=== PATIENT | female | born 1955 | race Caucasian/White ===

== ENCOUNTER 2023-07-04 13:54 | Outpatient (OUT) | payer MEDICARE, SELFPAY ==
--- NOTE | 2023-07-04 | MM_ITS ---
Patient: BASHIR COATS Exam Date: 07/04/2023 : 1955 Gender:F Ordering : DR Rom Becerril . Admission #: [id number] Family : Order #: [id number] CLICK HERE TO VIEW EXAM RADIOLOGY REPORT PROCEDURE: MM TOMOSYNTHESIS SCREENING BI COMPARISON: MG MAMM SCREEN 3D TRENT CAD, 02/07/2022. MG MAMM SCREEN TRENT W CAD, 07/15/2019. MG MAMM SCREEN TRENT W CAD, 03/04/2013. MG MAMM SCREEN TRENT W CAD, 07/28/2011. INDICATIONS: Z12.31 Calculator Name NCI Breast Cancer Risk Assessment Tool 5 Year Breast Cancer Risk 1.10% Lifetime Breast Cancer Risk 3.50% Personal Breast Cancer No Personal Ovarian Cancer No Treatments None Family Cancers Sister with lymphoma cancer at age 40. LOCATION: [facility] BREAST COMPOSITION: Heterogeneously dense,which may obscure small masses. FINDINGS: DIAGNOSTIC CATEGORY 2--BENIGN FINDING: RIGHT BREAST: No significant suspicious finding. Scattered benign-appearing lymph nodes are present. No significant change has occurred. LEFT BREAST: No significant suspicious finding. Scattered benign-appearing lymph nodes are present. Scattered benign-appearing calcifications are present. No significant change has occurred. RECOMMENDATIONS: ROUTINE MAMMOGRAM AND CLINICAL EVALUATION IN 12 MONTHS. PLEASE NOTE: A NORMAL MAMMOGRAM DOES NOT EXCLUDE THE POSSIBILITY OF BREAST CANCER. A CLINICALLY SUSPICIOUS PALPABLE LUMP SHOULD BE BIOPSIED. Dictated by: Mode Tijerina M.D. on 07/06/2023 at 10:48 Approved by: Mode Tijerina M.D. on 07/06/2023 at 10:51
== END 2023-07-04 13:55 | disposition home or self-care (01) ==
LOC: MAMMO 13:54
PROVIDERS: PCP Family Medicine; Visit Provider Family Medicine
DX: Z12.31 Encounter for screening mammogram for malignant neoplasm of breast (principal); Z80.7 Family history of other malignant neoplasms of lymphoid, hematopoietic and related tissues
CPT/HCPCS: 77063; 77067

== ENCOUNTER 2023-07-19 13:51 | Outpatient (OUT) | payer MEDICARE, SELFPAY | END 2023-07-19 13:52 | disposition home or self-care (01) | LOC: VC 13:51 | PROVIDERS: PCP Family Medicine; Visit Provider Radiology Diagnostic Radiology | DX: I83.813 Varicose veins of bilateral lower extremities with pain (principal) ==

== ENCOUNTER 2023-07-24 13:26 | Outpatient (OUT) | payer MEDICARE, SELFPAY ==
[2023-07-24 13:50] LABS: Basophils Percent Auto 0.5 % (0.2-2.0); Eosinophils Absolute Auto 0.1 10^3/uL (0.0-0.7); Eosinophils Percent Auto 1.7 % (0.9-7.0); Hematocrit 38.9 % (36.0-48.0); Hemoglobin 12.4 g/dL (12.0-16.0); Immature Granulocytes Abs Auto 0.01 10^3/uL (0.00-0.03); Immature Granulocytes Pct Auto 0.2 % (0.0-0.5); Lymphocytes Absolute Auto 2.3 10^3/uL (1.2-3.8); Lymphocytes Percent Auto 35.2 % (20.5-60.0); Mean Corpuscular HGB Conc 31.9 g/dL (29.9-35.2); Mean Corpuscular Hemoglobin 29.2 pg (26.7-34.0); Mean Corpuscular Volume 91.5 fL (81.0-99.0); Mean Platelet Volume 9.1 fL (9.5-13.5); Monocytes Absolute Auto 0.5 10^3/uL (0.3-0.8); Monocytes Percent Auto 8.1 % (1.7-12.0); Neutrophils Absolute Auto 3.5 10^3/uL (1.4-6.5); Neutrophils Percent Auto 54.3 % (43.0-75.0); Platelet Count 173 10^3/uL (150-450); Red Blood Count 4.25 10^6/uL (4.20-5.40); White Blood Count 6.5 10^3/uL (4.0-11.0)
[2023-07-24 13:51] LABS: Bilirubin Urine NEGATIVE (NEGATIVE); Blood Urine MODERATE (NEGATIVE); Clarity Urine CLEAR (CLEAR); Color Urine LT. YELLOW (YELLOW); Glucose Urine UA NEGATIVE (NEGATIVE); Ketones Urine NEGATIVE (NEGATIVE); Leukocyte Esterase Urine TRACE (NEGATIVE); Nitrite Urine NEGATIVE (NEGATIVE); Protein Urine NEGATIVE (NEG/TRACE); Urobilinogen Urine 0.2 EU/dL (0.2-1.0); pH Urine 5.5 (5.0-9.0)
[2023-07-24 13:59] LABS: Erythrocyte Sedimentation Rate 19 mm/hr (<=30)
[2023-07-24 14:00] LABS: WBC Urine 0-2 #/HPF (NONE SEEN)
[2023-07-24 14:01] LABS: Bacteria Urine TRACE #/HPF (NONE SEEN); Cast Seen? NONE SEEN #/LPF (NONE SEEN); Crystals Seen? None Seen #/HPF (None Seen); Mucus Urine NONE SEEN (NONE SEEN); Squamous Epithelial Cell Urine RARE #/LPF (NONE/RARE); Urine Culture Indicated NO
[2023-07-24 14:09] LABS: Alanine Aminotransferase 27 U/L (14-59); Albumin Level 3.4 g/dL (3.4-5.0); Alkaline Phosphatase 73 U/L (46-116); Anion Gap 9.6; Aspartate Amino Transferase 19 U/L (15-37); BUN Creatinine Ratio 23.4; Bilirubin Total 0.3 mg/dL (0.2-1.0); Calcium 8.6 mg/dL (8.5-10.1); Carbon Dioxide 27.5 mmol/L (21.0-32.0); Chloride 106 mmol/L (98-107); Estimated GFR (African America >60 (>=60); Estimated GFR (Non-African Ame 59 (>=60); Globulin 3.4 g/dL; Glucose 81 mg/dL (74-106); Potassium 4.1 mmol/L (3.5-5.1); Sodium 139 mmol/L (136-145); Total Protein 6.8 g/dL (6.4-8.2)
[2023-07-25 06:09] LABS: Complement C3, Serum 120 mg/dL (82-167); Complement C4, Serum 22 mg/dL (12-38)
[2023-07-25 15:08] LABS: Complement, Total (CH50) 60 U/mL (>41)
== END 2023-07-24 13:27 | disposition home or self-care (01) ==
LOC: LAB 13:28
PROVIDERS: PCP Internal Medicine
DX: M34.0 Progressive systemic sclerosis (principal); M15.0 Primary generalized (osteo)arthritis; Z79.899 Other long term (current) drug therapy
CPT/HCPCS: 36415; 80053; 81001; 85025; 85652; 86160; 86162

== ENCOUNTER 2023-09-25 14:02 | Outpatient (OUT) | payer MEDICARE, SELFPAY ==
--- NOTE | 2023-09-25 14:51 | CA_ITS ---
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 DESCRIPTION: COMPLETE ECHOCARDIOGRAM Real-time transthoracic echocardiography with 2D, M-mode, spectral and color flow Doppler performed. QUALITY: Technical quality was good. LEFT VENTRICLE: Normal chamber size. Normal left ventricular wall thickness. LV EF: Global left ventricular systolic function is normal. Visual estimation of left ventricular ejection fraction is 60-65% DIASTOLIC: Normal diastolic function. ATRIAL SEPTUM: Inadequately seen. LEFT ATRIUM: Normal chamber size. RIGHT ATRIUM: Normal chamber size. RIGHT VENTRICLE: Normal chamber size. Normal right ventricular systolic function. TRICUSPID VALVE: Normal mobility and thickness. Mild regurgitation. No evidence of pulmonary hypertension. RVSP 28mmHg MITRAL VALVE: Normal mobility and thickness. No evidence of mitral valve stenosis. There is no mitral annular calcification. Mild mitral regurgitation. AORTIC VALVE: Normal trileaflet appearance. Mildly calcified aortic valve. Normal leaflet mobility. No evidence of aortic valve stenosis. No aortic regurgitation. AORTIC ROOT: Normal diameter and appearance. PULMONIC VALVE: Normal thickness and mobility. No stenosis. Trivial regurgitation. PERICARDIUM: No evidence of pericardial effusion. CONCLUSION: 1. Global left ventricular systolic function is normal; visually estimated ejection fraction is 60 to 65% 2. Normal right ventricular size and systolic function 3. Normal diastolic function 4. Mild tricuspid regurgitation 5. Mild mitral regurgitation Adult Echocardiography Procedure Report Left Ventricle LVEDD (3.7 - 5.6 cm): 4.55 cm LVESD (2.2 - 4.0 cm): 2.96 cm LVIVS thickness (0.6 - 1.2 cm): 1.05 cm LVPW thickness (0.5 - 1.0 cm): 0.93 cm e': 0.10 m/s E - e': 8.76 LVOT Max Gradient: 3.63 mm[Hg] LVOT Area (cm2): 0.95 m/s Peak Velocity (LVOT): 0.95 m/s Mean Velocity (LVOT): 0.65 m/s LVOT Diameter 1.89 cm Left Ventricular Ejection Fraction: 72.87 % Left Atrium LA Volume Index (2D A2C): 31.23 ml/m2 Left Atrium Systolic Dimension: 3.83 cm Mitral Valve MV E to A Ratio: 0.96 Mitral Valve A-Wave Peak Velocity: 0.93 m/s Mitral Valve E-Wave Peak Velocity: 0.89 m/s Right Ventricle RV Internal Diastolic Dimension: 3.31 cm Aorta AO Root Diam: 2.70 cm Ascending Ao Diam: 3.34 cm Aortic Valve AoV Area (Peak Ernesto): 1.72 cm2, 1.72 cm2 AoV Area (VTI): 1.77 cm2, 1.77 cm2 Peak Velocity(Antegrade Flow): 1.55 m/s Peak Gradient(Antegrade Flow): 9.57 mm[Hg] Mean Velocity(Antegrade Flow): 1.05 m/s Mean Gradient(Antegrade Flow): 5.11 mm[Hg] Velocity Time Integral: 38.41 cm Tricuspid Valve Peak Velocity (Regurgitant Flow): 2.44 m/s, 2.45 m/s, 2.52 m/s, 2.78 m/s Pulmonic Valve Mean Gradient: 2.13 mm[Hg], 1.70 mm[Hg] Mean Velocity: 0.68 m/s, 0.59 m/s Peak Velocity: 0.91 m/s Peak Gradient: 3.81 mm[Hg], 2.90 mm[Hg] Right Atrium Right Atrium Systolic Pressure: 44.40 ml, 44.40 ml Dictated by: Lavelle Owens M.D. on 09/25/2023 at 17:06 Approved by: Lavelle Owens M.D. on 09/25/2023 at 17:09
== END 2023-09-25 14:03 | disposition home or self-care (01) ==
LOC: CARD 14:02
PROVIDERS: PCP Internal Medicine; Visit Provider Registered Nurse
DX: J84.10 Pulmonary fibrosis, unspecified (principal); I27.0 Primary pulmonary hypertension; R06.02 Shortness of breath; R06.00 Dyspnea, unspecified; M35.9 Systemic involvement of connective tissue, unspecified
CPT/HCPCS: 93306

== ENCOUNTER 2023-09-27 12:57 | Outpatient (OUT) | payer MEDICARE, SELFPAY ==
[2023-09-27 13:06] LABS: Hemoglobin 12.6 g/dL (12.0-16.0)
--- NOTE | 2023-09-27 14:09 | CT_ITS ---
[address] [address] Patient Name: BASHIR COATS MRN: [id number] date: 1955 Sex: F Assigned Patient Location: CARD Current Patient Location: CARD Accession/Order Number: [id number] Exam Date: 09/27/2023 14:12 Report Date: 10/02/2023 08:07 At the request of: RAFAEL TERRELL Procedure: CT chest high res EXAMINATION: CT chest high res HISTORY: Interstitial Lung Disease J84.10 COMPARISON: 09/18/2022 TECHNIQUE: Axial images were obtained at 10 mm intervals during inspiration and expiration in the supine and prone positions. No IV contrast given. Dose reduction techniques were achieved by using automated exposure control and/or adjustment of mA and/or kV according to patient size and/or use of iterative reconstruction technique. FINDINGS: LUNGS: Mild bronchiectasis. Bronchial thickening emphysema or evidence of interstitial lung disease. PLEURA: No mass, effusion, or pneumothorax. CEH: No mass or adenopathy. MEDIASTINUM: No mass or adenopathy. CHEST WALL: No mass or axillary adenopathy LIMITED ABDOMEN: No suspicious findings. Limited images of the upper abdomen. OTHER: Dilated esophagus containing food stuffs, grossly stable from the prior exam CT/CT chest high res IMPRESSION: No evidence of interstitial lung disease Electronically authenticated by: LUCA COATS Date: 10/02/2023 08:07
--- NOTE | 2023-09-27 14:38 | RT_ITS ---
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 Findings were considered accurate and reproducible. No bronchodilator was administered due to normal spirometric values. Due to software limitations, no prior studies are currently available for comparison. Spirometry: -FEV1/FVC: Normal @ 82% -FEV1: Normal @ 111% -FVC: Normal @ 102% Lung volumes by plethysmography: -RV: Normal @ 86% -TLC: Normal @ 98% Diffusion capacity: -DLCO: Normal @ 86% when corrected for Hb 12.6g/dL Flow-volume loop: -Normal shape Impressions: -Normal PFT. Clinical correlation required. Electronically Signed On 10-01-2023 17:30:42 EST by Tay Clemnets
== END 2023-09-27 12:58 | disposition home or self-care (01) ==
LOC: CARD 12:57
PROVIDERS: PCP Internal Medicine; Visit Provider Registered Nurse
DX: J84.10 Pulmonary fibrosis, unspecified (principal); I27.0 Primary pulmonary hypertension; R06.02 Shortness of breath; R06.00 Dyspnea, unspecified; M35.9 Systemic involvement of connective tissue, unspecified; Z79.899 Other long term (current) drug therapy
CPT/HCPCS: 36415; 71250; 85018; 94010; 94060; 94726; 94729

== ENCOUNTER 2023-12-25 14:26 | Outpatient (OUT) | payer OTHER, SELFPAY ==
[2023-12-25 14:52] LABS: Bilirubin Urine NEGATIVE (NEGATIVE); Blood Urine MODERATE (NEGATIVE); Clarity Urine CLEAR (CLEAR); Color Urine LT. YELLOW (YELLOW); Glucose Urine UA NEGATIVE (NEGATIVE); Ketones Urine NEGATIVE (NEGATIVE); Leukocyte Esterase Urine SMALL (NEGATIVE); Nitrite Urine NEGATIVE (NEGATIVE); Protein Urine NEGATIVE (NEG/TRACE); Urobilinogen Urine 0.2 EU/dL (0.2-1.0); pH Urine 5.5 (5.0-9.0)
[2023-12-25 14:52] LABS: Basophils Absolute Auto 0.1 10^3/uL (0.0-0.1); Basophils Percent Auto 0.8 % (0.2-2.0); Eosinophils Absolute Auto 0.1 10^3/uL (0.0-0.7); Eosinophils Percent Auto 1.4 % (0.9-7.0); Hematocrit 39.7 % (36.0-48.0); Hemoglobin 12.6 g/dL (12.0-16.0); Immature Granulocytes Abs Auto 0.02 10^3/uL (0.00-0.03); Immature Granulocytes Pct Auto 0.3 % (0.0-0.5); Lymphocytes Absolute Auto 2.6 10^3/uL (1.2-3.8); Lymphocytes Percent Auto 32.4 % (20.5-60.0); Mean Corpuscular HGB Conc 31.7 g/dL (29.9-35.2); Mean Corpuscular Hemoglobin 29.3 pg (26.7-34.0); Mean Corpuscular Volume 92.3 fL (81.0-99.0); Mean Platelet Volume 8.9 fL (9.5-13.5); Monocytes Absolute Auto 0.6 10^3/uL (0.3-0.8); Neutrophils Absolute Auto 4.6 10^3/uL (1.4-6.5); Neutrophils Percent Auto 58.1 % (43.0-75.0); Platelet Count 201 10^3/uL (150-450); Red Cell Distribution Width 13.8 % (11.0-15.0)
[2023-12-25 15:01] LABS: Bacteria Urine TRACE #/HPF (NONE SEEN); Cast Seen? NONE SEEN #/LPF (NONE SEEN); Crystals Seen? None Seen #/HPF (None Seen); Mucus Urine TRACE (NONE SEEN); Squamous Epithelial Cell Urine FEW #/LPF (NONE/RARE)
[2023-12-25 15:10] LABS: Erythrocyte Sedimentation Rate 29 mm/hr (<=30)
[2023-12-25 15:33] LABS: Alanine Aminotransferase 27 U/L (14-59); Albumin Globulin Ratio 0.9; Albumin Level 3.3 g/dL (3.4-5.0); Alkaline Phosphatase 74 U/L (46-116); Aspartate Amino Transferase 17 U/L (15-37); BUN Creatinine Ratio 19.8; Bilirubin Total 0.3 mg/dL (0.2-1.0); Carbon Dioxide 29.7 mmol/L (21.0-32.0); Chloride 104 mmol/L (98-107); Estimated GFR (African America >60 (>=60); Estimated GFR (Non-African Ame >60 (>=60); Globulin 3.5 g/dL; Glucose 94 mg/dL (74-106); Potassium 3.7 mmol/L (3.5-5.1); Sodium 143 mmol/L (136-145); Total Protein 6.8 g/dL (6.4-8.2)
[2023-12-27 05:07] LABS: Complement C3, Serum 121 mg/dL (82-167); Complement C4, Serum 20 mg/dL (12-38)
[2023-12-27 16:10] LABS: Complement, Total (CH50) 57 U/mL (>41)
== END 2023-12-25 14:27 | disposition home or self-care (01) ==
LOC: LAB 14:29
PROVIDERS: PCP Internal Medicine; Visit Provider Internal Medicine Rheumatology
DX: M34.0 Progressive systemic sclerosis (principal); M15.0 Primary generalized (osteo)arthritis; Z79.899 Other long term (current) drug therapy
CPT/HCPCS: 36415; 80053; 81001; 85025; 85652; 86160; 86162

== ENCOUNTER 2024-06-17 12:00 | Outpatient (OUT) | payer OTHER, SELFPAY ==
--- OUTSIDE RECORDS SUMMARY | 2024-06-17 12:14 | XMS_ITS | CCD ---
Author Organization [facility] Inform ion [facility] Care Team Providers Care Contracts Manager Name Role Phone EDUARDOE, PAVEL Unavailable Unavailable SKIE, PAVEL Unavailable Unavailable PAVLOCK, MAX CHAZ Unavailable Unavailable SELF, REFERRED Unavailable Unavailable LA Unavailable Unavailable SKIE, PAVEL Unavailable Unavailable ELGAFY, GARETH K Unavailable Unavailable ELGAFY, GARETH K Unavailable Unavailable PAVLOCK, MAX CHAZ Unavailable Unavailable PAVLOCK, MAX CHAZ Unavailable Unavailable Pedro Ruiz Attending Provider Steve Armendariz Primary Care Provider [phone] DO Steve Armendariz Primary Care Provider MD Alex Neely Attending Provider DO Steve Armendariz Primary Care Provider MD Alex Neely Attending Provider VASHTI Damon Attending Provider Steve Armendariz Unavailable Chiara Damon Unavailable MARCELLO, DR LEVI Admitting Unavailable BALL, DR LEVI Attending Unavailable BALL, DR LEVI Consulting Unavailable BALL, DR LEVI Primary Care Unavailable ZIEBER, DR EULALIA Robert Consulting Unavailable MISC, DR DEL RIO Admitting Unavailable MISC, DR DEL RIO Attending Unavailable MISC, DR DEL RIO Consulting Unavailable BALL, DR LEVI Primary Care Unavailable BALL, DR LEVI Admitting Unavailable BALL, DR LEVI Attending Unavailable BALL, DR LEVI Consulting Unavailable BALL, DR LEVI Primary Care Unavailable BALL, DR LEVI Admitting Unavailable BALL, DR LEVI Attending Unavailable BALL, DR LEVI Primary Care Unavailable BALL, DR LEVI Admitting Unavailable BALL, DR LEVI Attending Unavailable BALL, DR LEVI Primary Care Unavailable MISC, DR DEL RIO Consulting Unavailable MISC, DR DEL RIO Admitting Unavailable MISC, DR DEL RIO Attending Unavailable BALL, DR LEVI Primary Care Unavailable MISC, DR DEL RIO Consulting Unavailable MISC, DR DEL RIO Admitting Unavailable MISC, DR DEL RIO Attending Unavailable BALL, DR LEVI Primary Care Unavailable VICK, DR ATWOOD Admitting Unavailable MISC, DR DEL RIO Consulting Unavailable VICK, DR ATWOOD Attending Unavailable BALL, DR LEVI Primary Care Unavailable ZIEBER, DR EULALIA Robert Consulting Unavailable VICK, DR ATWOOD Consulting Unavailable MISC, DR DEL RIO Admitting Unavailable MISC, DR DEL RIO Attending Unavailable MISC, DR DEL RIO Consulting Unavailable BALL, DR LEVI Primary Care Unavailable DO Steve Armendariz Primary Care Provider [phone] VASHTI Damon Attending Provider Alex Neely Unavailable DO Steve Armendariz Primary Care Provider MD Angelic Slaughter Attending Provider [phone] BERTIN CORRAL Attending Unavailable ELLIS, BERTIN Tellez Attending Unavailable BERTIN CORRAL Attending Unavailable BERTIN CORRAL Attending Unavailable CORRAL, BERTIN Tellez Attending Unavailable CORRAL, BERTIN Tellez Attending Unavailable BERTIN CORRAL Attending Unavailable DO Steve Armendariz Primary Care Provider MD Miguel Sarah Attending Provider Angelic Slaughter Admitting UnavailAngelic Dodge Attending Unavailabl e Steve Armendariz [facility] Unavailable Miguel Sarah Admitting Unavailable Miguel Sarah Attending Unavailable Steve Armendariz [facility] Unavailable Allergies Allergy Classification Reported Allergen(s) Allergy Type Date of Onset Reaction(s) Facility Aminoglycosides (antibiotic) (1 source) Gentamicin Sulfate ([facility]) Drug Allergy 01-31-20 18 Unknown Reaction [facility] Dihydrofolate Reductase Inhibitors (antibiotic) (1 source) Trimethoprim Drug Allergy 01-31-20 18 Headache [facility] Penicillins (antibiotic) (1 source) Penicillins Drug Allergy 01-31-20 18 Swelling of Lip/Tongue/Th roat [facility] Sulfonamides (antibiotic) (1 source) Sulfamethoxazole Drug Allergy 01-31-20 18 Headache [facility] (15 sources) Gentamicin Sulfate ([facility]); Translations: [GENTAMICIN] Drug Allergy 04-21-20 15 Unknown Reaction, Unknown [facility] (9 sources) meloxicam Drug Allergy 07-31-20 18 Rash [facility] (11 sources) Penicillins Drug allergy (disorder) 06-07-20 10 Swelling of Lip/Tongue/Th roat [facility] (7 sources) Sulfonamides (Antibiotic) Drug allergy (disorder) 07-31-20 18 Unknown Reaction [facility] (13 sources) Sulfamethoxazole Drug Allergy 01-31-20 18 Headache, Comment:heada ches, Headache, Comment:heada ches [facility] (9 sources) Trimethoprim Drug Allergy 01-31-20 18 Headache [facility] (7 sources) meloxicam Drug Allergy Unknown [facility] [facility] Other (7 sources) Sulfamethoxazole / Trimethoprim Drug Allergy Unknown [employer] [facility] Other (7 sources) Sulfonamides (Antibiotic) Propensity to adverse reactions Unknown [employer] [facility] Other (7 sources) Penicillian V Potassium Propensity to adverse reactions Unknown [facility] Other (12 sources) gentamycin Propensity to adverse reactions 10-25-19 24 Unknown, Unknown Reaction [facility] (1 source) meloxicam Drug Allergy [facility] (4 sources) Penicillin Drug Allergy Comment:lips swell up [facility] Other (9 sources) Penicillin V Drug Allergy 10-25-19 24 Unknown, Unknown Reaction [facility] (4 sources) Substance with sulfonamide structure and antibacterial mechanism of action (substance) Drug allergy 12-07-19 16 Unknown [facility] Other (1 source) Allergies Reconciled Propensity to adverse reactions Unknown [facility] Other (9 sources) Gentamicin in Saline Drug allergy 10-25-19 24 Comment:made eye bloody [facility] (1 source) patient allergy list reviewed by nurse or physicia Propensity to adverse reactions 12-07-19 16 Comment:Done [facility] Other Medications Current Medications Medication Drug Class(es) Dates Sig (Normalized) Sig (Original) acetaminophen 500 mg oral tablet (10 sources) Start: 01-30-2018 Acetaminophen (Tylenol Extra Strength) 500 mg Tablet Active 500 MG PO As Directed January 30, 2018 12:00am Aloe Vera (10 sources) Start: 01-30-2018 Aloe Vera Active 1 TAB PO As Directed January 30, 2018 8:53am Start: 01-30-2018 End: 09-20-2022 Aloe Vera Discontinued 1 TAB PO As Directed January 30, 2018 12:00am September 20, 2022 1:26pm Start: 01-30-2018 End: 09-20-2022 Aloe Vera Discontinued 1 TAB PO As Directed January 29, 2018 11:00pm September 20, 2022 12:26pm Start: 01-30-2018 Aloe Vera Acti ve 1 TAB PO As Directed January 29, 2018 11:00pm Artificial Tear (7 sources) Artificial Tear Active ascorbic acid 1000 mg oral tablet (17 sources) Vitamin C Start: 01-30-2018 Ascorbic Acid (Vitamin C) (Vitamin C) 1,000 mg Tablet Active 1 TAB PO As Directed January 30, 2018 12:00am Vitamin C 500 MG as directed Orally Once a day Active Vitamin C Active Beta Glucan 250 MG (3 sources) Beta Glucan 250 MG as directed Orally Active Calcium Carbonate-Mag Hydrox id (3 sources) Start: 01-30-2018 Calcium Carbon ate-Mag Hydroxid Active 1 TAB PO As Directed January 30, 2018 12:00am Start: 01-30-2018 Calcium Carbon ate-Mag Hydroxid Active 1 TAB PO As Directed January 29, 2018 11:00pm cholecalciferol 0.025 mg oral capsule (13 sources) Vitamin D Start: 01-30-2018 Cholecalcifero l (Vitamin D3) (Vitamin D3) 1,000 unit Capsule Active 6000 UNIT PO As Directed January 30, 2018 12:00am Start: 01-30-2018 Cholecalcifero l (Vitamin D3) (Vitamin D3) 1,000 unit Capsule Active 1000 UNIT PO As Directed January 30, 2018 8:53am take 1 tablet by gladis th every twenty-four hours Vitamin D3 25 MCG (1000 UT) 1 tablet Orally Once a day Active cycloSPORINE 0.5 mg/ml ophthalmic suspension (9 sources) Calcineurin Inhibitor Immunosuppressant Start: 01-30-2018 Cyclosporine (Restasis) 0.05 % Dropperette Active 1 DROPS OPHTHALMIC As Directed January 30, 2018 8:49am Restasis Active Cyclosporine (Restasis) 0.05 % dropperette (2 sources) Start: 05-27-2024 take 1 drop(s) into the eye(s) every twelve hours Cyclosporine (Restasis) 0.05 % dropperette Active 1 DROPS EYE-BOTH Every 12 hours May 27, 2024 12:00am Digestive Enzymes (Enzyme Digest) Capsule (10 sources) Start: 01-30-2018 Digestive Enzy mes (Enzyme Digest) Capsule Active 1 CAP PO As Directed January 30, 2018 8:53am Start: 01-30-2018 take 1 capsule by mo ut once daily Digestive Enzymes (Enzyme Digest) Capsule Active 1 CAP PO Daily January 30, 2018 12:00am Start: 01-30-2018 take 1 capsule by mo uth once daily Digestive Enzymes (Enzyme Digest) Capsule Active 1 CAP PO Daily January 29, 2018 11:00pm Start: 01-30-2018 Digestive Enzy mes (Enzyme Digest) Capsule Active 1 CAP PO As Directed January 29, 2018 11:00pm Eye Promise Restore (8 sources) Start: 09-20-2022 take 1 tablet by gladis th once daily [facility] Promise Restore Active 1 TAB PO Daily September 20, 2022 1:00am Start: 09-20-2022 take 1 tablet by mouth once da sarah Eye Promise Restore Active 1 TAB PO Daily September 20, 2022 12:00am Eye Vitamins (7 sources) Eye Vitamins Act jorge Ez Tears (8 sources) Start: 09-20-2022 take 1 tablet by gladis th once daily Ez Tears Active 1 TAB PO Daily September 20, 2022 1:00am Start: 09-20-2022 take 1 tablet by mouth once da sarah Ez Tears Active 1 TAB PO Daily September 20, 2022 12:00am Garlic preparation (17 sources) Non-Standardized Food Allergenic Extract Start: 01-30-2018 Garlic Active 1 TAB PO As Directed January 30, 2018 8:53am Start: 01-30-2018 take 1 tablet by mouth once da sarah Garlic Active 1 TAB PO Daily January 30, 2018 12:00am Start: 01-30-2018 take 1 tablet by mouth once da sarah Garlic Active 1 TAB PO Daily January 29, 2018 11:00pm Start: 01-30-2018 Garlic Active 1 TAB PO As Directed January 29, 2018 11:00pm Garlic Active grape seed extract 100 mg oral capsule (7 sources) take 2.5 tablets by mouth once daily Grape Seed Extract 100 MG 2.5 tablets orally daily Active Grape Seed Extra ct Active Grape Seed Xt-Bioflav,Grannis (10 sources) Start: 01-30-2018 Grape Seed Xt- Bioflav,Grannis Active 1 TAB PO As Directed January 30, 2018 8:53am Start: 01-30-2018 take 1 tablet by gladis th once daily Grape Seed Xt-Bioflav,Grannis Active 1 TAB PO Daily January 30, 2018 12:00am Start: 01-30-2018 take 1 tablet by gladis th once daily Grape Seed Xt-Bioflav,Grannis Active 1 TAB PO Daily January 29, 2018 11:00pm Start: 01-30-2018 Grape Seed Xt- Bioflav,Grannis Active 1 TAB PO As Directed January 29, 2018 11:00pm Lactobacillus Combination No .4 (Probiotic) 3 billion cell Capsule (10 sources) Start: 01-30-2018 Lactobacillus Combination No.4 (Probiotic) 3 billion cell Capsule Active 1 TAB PO As Directed January 30, 2018 8:53am Start: 01-30-2018 Lactobacillus Combination No.4 (Probiotic) 3 billion cell Capsule Active 1 TAB PO Daily January 30, 2018 12:00am Start: 01-30-2018 Lactobacillus Combination No.4 (Probiotic) 3 billion cell Capsule Active 1 TAB PO Daily January 29, 2018 11:00pm Start: 01-30-2018 Lactobacillus Combination No.4 (Probiotic) 3 billion cell Capsule Active 1 TAB PO As Directed January 29, 2018 11:00pm melatonin 3 mg oral tablet (20 sources) Start: 09-20-2022 take 3 mg by mouth at bedtime Melatonin Active 3 MG PO Bedtime September 20, 2022 1:00am Start: 01-30-2018 End: 09-20-2022 Melatonin Discontinued 1 TAB PO As Directed January 30, 2018 12:00am September 20, 2022 1:12pm Melatonin Active Latty [place] Extract (17 sources) Start: 01-30-2018 Latty [place] Ext ract Active 1 TAB PO As Directed January 30, 2018 8:53am Start: 01-30-2018 take 1 tablet by mouth once da sarah Latty [place] Extract Active 1 TAB PO Daily January 30, 2018 12:00am Start: 01-30-2018 take 1 tablet by mouth once da sarah [place]ty [place] Extract Active 1 TAB PO Daily January 29, 2018 11:00pm Start: 01-30-2018 Latty [place] Ext ract Active 1 TAB PO As Directed January 29, 2018 11:00pm Latty [place] Extra ct Active [place] 7-Oml-Bri-Fish Oil (Fi sh Oil) 1,000 mg (120 mg-180 mg) Capsule (10 sources) Start: 01-30-2018 [place]dy 3-Dha-Ep a-Fish Oil (Fish Oil) 1,000 mg (120 mg-180 mg) Capsule Active 1 TAB PO As Directed January 30, 2018 8:53am Start: 01-30-2018 End: 09-20-2022 [place]dy 4-Vtx-Yei-Fish Oil (Fi sh Oil) 1,000 mg (120 mg-180 mg) Capsule Discontinued 1 TAB PO As Directed January 30, 2018 12:00am September 20, 2022 1:26pm Start: 01-30-2018 End: 09-20-2022 [place]uddy 6-Kaa-Ejh-Fish Oil (Fi sh Oil) 1,000 mg (120 mg-180 mg) Capsule Discontinued 1 TAB PO As Directed January 29, 2018 11:00pm September 20, 2022 12:26pm Start: 01-30-2018 [place] 3-Dha-Ep a-Fish Oil (Fish Oil) 1,000 mg (120 mg-180 mg) Capsule Active 1 TAB PO As Directed January 29, 2018 11:00pm pantoprazole 40 mg delayed release oral tablet (4 sources) Proton Pump Inhibitor Start: 03-21-2021 take 1 tablet by mouth every twenty-four hours Pantoprazole Sodium 40 MG 1 tablet Orally Once a day for 30 day(s) Mar, Active Probiotic (7 sources) Probiotic Active triamcinolone acetonide 0.001 mg/mg topical ointment (5 sources) Corticosteroid Triamcinolone Acetonide 0.1 % APPLY TO AFFECTED AREAS ON LEG AND ABDOMEN TWICE A DAY UP TO 2 WEEKS , THEN NEEDED FOR FLARES External for 30 Days Active Vitamin D3 (4 sources) Vitamin D3 Activ e Completed/Discontinued Medications Medication Drug Class(es) Dates Sig (Normalized) Sig (Original) Aloe Vera (10 sources) Start: 01-30-2018 End: 01-30-2018 Aloe Vera Discontinued 1 TAB TOPICAL January 30, 2018 8:52am January 30, 2018 8:53am Start: 01-30-2018 End: 01-30-2018 Aloe Vera Discontinued 1 TAB TOPICAL January 30, 2018 12:00am January 30, 2018 8:53am Start: 01-30-2018 End: 01-30-2018 Aloe Vera Discontinued 1 TAB TOPICAL January 29, 2018 11:00pm January 30, 2018 7:53am Calcium (7 sources) Phosphate Binder, Calcium Calciu m Not-Taking/PRN Calcium Active calcium carbonate 500 mg chewable tablet (10 sources) Start: 01-30-2018 End: 12-06-2022 take 1 tablet by mouth three times daily Calcium Carbonate (Tums) 200 mg calcium (500 mg) Tablet,Chewable Discontinued 200 MG PO Three times daily January 30, 2018 12:00am December 06, 2022 12:56pm calcium carbonate 1000 mg / magnesium hydroxide 200 mg chewable tablet (7 sources) Start: 01-30-2018 End: 05-27-2024 Calcium Carbonate-Mag Hydroxid Discontinued 1 TAB PO As Directed January 30, 2018 12:00am May 27, 2024 11:29am choline 650 mg oral tablet (10 sources) Start: 01-30-2018 End: 01-30-2018 Choline Dihydrogen Citrate Discontinued TABLET January 30, 2018 12:00am January 30, 2018 8:52am Cyclosporine (Restasis) 0.05 % Dropperette (8 sources) Start: 01-30-2018 End: 05-27-2024 take 1 drop(s) into the eye(s) once daily Cyclosporine (Restasis) 0.05 % Dropperette Discontinued 1 DROPS OPHTHALMIC Daily January 30, 2018 12:00am May 27, 2024 11:29am Start: 01-30-2018 take 1 drop(s) into the eye(s) once daily Cyclosporine (Restasis) 0.05 % Dropperette Active 1 DROPS OPHTHALMIC Daily January 30, 2018 12:00am Start: 01-30-2018 take 1 drop(s) into the eye(s) once daily Cyclosporine (Restasis) 0.05 % Dropperette Active 1 DROPS OPHTHALMIC Daily January 29, 2018 11:00pm famotidine 40 mg oral tablet (2 sources) Histamine-2 Receptor Antagonist Start: 06-12-2023 take 1 tablet by mouth every twelve hours Famotidine 40 MG 1 tablet Orally Twice a day for 30 days May, Not-Taking/PRN Magnesium (7 sources) Magnesium Not-Taking/PRN Magnesium Active omeprazole 20 mg delayed release oral capsule (20 sources) Proton Pump Inhibitor Start: 09-20-2022 End: 12-06-2022 take 40 mg by mouth twice daily Omeprazole Discontinued 40 MG PO Twice daily 60 September 20, 2022 1:00am December 06, 2022 12:57pm Start: 01-30-2018 End: 05-27-2024 take 20 mg by mouth once daily Omeprazole Discontinued 20 MG PO Daily May 27, 2024 11:34am May 27, 2024 11:38am polyethylene glycol 400 4 mg/ml / propylene glycol 3 mg/ml ophthalmic solution (8 sources) Start: 09-20-2022 End: 06-09-2024 Peg 400-Propylene Glycol (Pf) (Systane (Pf)) 0.4-0.3 % Dropperette Discontinued 1 DROPS EYE-BOTH 2-4 TIMES PER DAY September 20, 2022 1:00am June 09, 2024 2:23pm predniSONE 20 mg oral tablet (5 sources) Start: 01-29-2023 take 1 tablet by mouth every twelve hours predniSONE 20 MG 1 tablet Orally bid for 5 day(s) Jan, Not-Taking/PRN raNITIdine 150 mg oral tablet (10 sources) Histamine-2 Receptor Antagonist Start: 01-30-2018 End: 09-20-2022 Ranitidine Hcl (Zantac) 150 mg Tablet Discontinued 2 TAB PO As Directed January 30, 2018 12:00am September 20, 2022 1:26pm tiZANidine 4 mg oral capsule (8 sources) Central alpha-2 Adrenergic Agonist Start: 09-20-2022 End: 05-27-2024 take 4 mg by mouth once daily at bedtime Tizanidine Discontinued 4 MG PO Daily at bedtime September 20, 2022 1:00am May 27, 2024 11:29am traMADol hydrochloride 50 mg oral tablet (14 sources) Opioid Agonist Start: 01-30-2018 End: 09-20-2022 Tramadol Discontinued 50 MG PO As Directed January 30, 2018 12:00am September 20, 2022 1:15pm Zinc (15 sources) Start: 09-20-2022 End: 05-27-2024 take 50 mg by mouth once daily Zinc Discontinued 50 MG PO Daily September 20, 2022 1:00am May 27, 2024 11:29am Start: 09-20-2022 take 50 mg by mouth once daily Zinc Active 50 MG PO Daily September 20, 2022 1:00am Start: 09-20-2022 take 50 mg by mouth once daily Zinc Active 50 MG PO Daily September 20, 2022 12:00am Zinc Not-Taking/ PRN Zinc Active Problems Active Problems Problem Classification Problem Date Documented Date Episodic/Chronic Acute bronchitis (2 sources) Acute bronchitis; Translations: [Acute bronchitis due to other specified organisms] Onset: 6 Episodic Allergic reactions (3 sources) Allergy status to sulfonamides status; Translations: [Allergy status to penicillin] Onset: 8 Episodic Cardiac dysrhythmias (1 source) Palpitations Episodic Chronic obstructive pulmonary disease and bronchiectasis (1 source) Bronchitis, not specified as acute or chronic Episodic Digestive congenital anomalies (4 sources) Terminal esophageal web; Translations: [Esophageal web] Chronic Diverticulosis and diverticulitis (7 sources) Diverticular disease of colon; Translations: [Diverticulosis of large intestine without perforation or abscess without bleeding] Chronic Esophageal disorders (20 sources) Gastroesophageal reflux disease; Translations: [Gastro-esophageal reflux disease without esophagitis] Onset: 4 01-30-2018 Chronic Menopausal disorders (1 source) Primary ovarian failure; Translations: [Other primary ovarian failure] Chronic Mood disorders (2 sources) Depression; Translations: [Mild recurrent major depression] Onset: 4 Chronic Nausea and vomiting (7 sources) Nausea; Translations: [Nausea] Episodic Nonspecific chest pain (1 source) Other chest pain Episodic Osteoarthritis (13 sources) Primary generalized (osteo)arthritis; Translations: [Bilateral primary osteoarthritis of knee] Onset: 2 Chronic Other acquired deformities (1 source) Scoliosis, unspecified; Translations: [SCOLIOSIS, UNSPECIFIED] Onset: 8 Chronic Other acquired deformities (1 source) Acquired spondylolisthesis; Translations: [Spondylolisthesis, site unspecified] Episodic Other aftercare (1 source) 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; Translations: [OTH CASE REPAIRER CURRENT DRUG THERAPY] Onset: 3 Episodic Other and unspecified benign neoplasm (1 source) Hemangioma of other sites; Translations: [HEMANGIOMA OF OTHER SITES] Onset: 8 Episodic Other circulatory disease (1 source) Raynaud's syndrome without gangrene; Translations: [RAYNAUD'S SYNDROME WITHOUT GANGRENE] Onset: 8 Chronic Other connective tissue disease (1 source) Fibromyalgia; Translations: [Fibromyalgia] Episodic Other diseases of veins and lymphatics (4 sources) Peripheral venous insufficiency; Translations: [Venous insufficiency (chronic) (peripheral)] Episodic Other diseases of veins and lymphatics (1 source) Venous insufficiency (chronic) (peripheral) Episodic Other gastrointestinal disorders (19 sources) Dysphagia; Translations: [Dysphagia, unspecified] 01-30-2018 Episodic Other gastrointestinal disorders (5 sources) Dysphagia, unspecified; Translations: [Dysphagia, unspecified] Onset: 4 09-20-2022 Episodic Other gastrointestinal disorders (8 sources) H/O: gastrointestinal disease; Translations: [Personal history of other diseases of the digestive system] Episodic Other gastrointestinal disorders (1 source) Pharyngeal dysphagia; Translations: [Dysphagia, pharyngoesophageal phase] Episodic Other injuries and conditions due to external causes (1 source) History of fall; Translations: [History of falling] Episodic Other lower respiratory disease (4 sources) Pulmonary fibrosis, unspecified; Translations: [PULMONARY FIBROSIS UNSPECIFIED] Onset: 2 Chronic Other nervous system disorders (1 source) Hereditary disorder of nervous system; Translations: [Hereditary and idiopathic neuropathy, unspecified] Chronic Other nervous system disorders (3 sources) Neuropathy; Translations: [Idiopathic progressive neuropathy] Chronic Other non-traumatic joint disorders (1 source) Effusion, other site; Translations: [EFFUSION, OTHER SITE] Onset: 8 Episodic Other non-traumatic joint disorders (1 source) Pain in right elbow Episodic Other non-traumatic joint disorders (1 source) Pain in right shoulder Episodic Other non-traumatic joint disorders (1 source) Pain in left ankle and joints of left foot Episodic Other nutritional; endocrine; and metabolic disorders (4 sources) Other disorders of calcium metabolism; Translations: [OTHER DISORDERS OF CALCIUM METABOLISM] Onset: 8 Chronic Other nutritional; endocrine; and metabolic disorders (8 sources) Obese class I; Translations: [Body mass index (BMI) 33.0-33.9, adult] Onset: 4 Chronic Other nutritional; endocrine; and metabolic disorders (1 source) Obese class II; Translations: [Body mass index (BMI) 35.0-35.9, adult] Onset: 4 Chronic Other nutritional; endocrine; and metabolic disorders (1 source) Obesity; Translations: [Obesity, unspecified] Chronic Other nutritional; endocrine; and metabolic disorders (1 source) Morbid obesity; Translations: [Morbid (severe) obesity due to excess calories] Onset: 4 Chronic Other nutritional; endocrine; and metabolic disorders (1 source) Simple obesity ; Translations: [Other obesity due to excess calories] Onset: 4 Chronic Other screening for suspected conditions (not mental disorders or infectious disease) (9 sources) Patient encounter status; Translations: [Encounter for screening for malignant neoplasm of colon] 03-17-2021 Episodic Other upper respiratory infections (1 source) Acute pharyngitis; Translations: [Acute pharyngitis, unspecified] Episodic Peripheral and visceral atherosclerosis (10 sources) Atherosclerosis of [place] arteries of extremities with intermittent claudication, bilateral legs; Translations: [Atherosclerosis of [place] arteries of the extremities] Onset: 2 Chronic Phlebitis; thrombophlebitis and thromboembolism (2 sources) History of thromboembolism of vein; Translations: [Personal history of other venous thrombosis and embolism] Onset: 6 Episodic Pulmonary heart disease (1 source) Primary pulmonary hypertension; Translations: [PRIMARY PULMONARY HYPERTENSION] Onset: 2 Chronic Residual codes; unclassified (1 source) Postmenopausal state; Translations: [Asymptomatic menopausal state] Episodic Skin and subcutaneous tissue infections (1 source) Cellulitis of toe; Translations: [Cellulitis of unspecified toe] Episodic Spondylosis; intervertebral disc disorders; other back problems (8 sources) Spondylosis without myelopathy or radiculopathy, lumbar region; Translations: [Other intervertebral disc displacement, lumbar region] Onset: 8 Chronic Spondylosis; intervertebral disc disorders; other back problems (4 sources) Low back pain; Translations: [Low back pain] Onset: 8 Episodic Superficial injury; contusion (1 source) Contusion of right elbow, initial encounter Episodic Systemic lupus erythematosus and connective tissue disorders (12 sources) Systemic sclerosis, unspecified; 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: 8 Chronic Varicose veins of lower extremity (13 sources) Varicose ulcer of lower extremity; Translations: [Varicose veins of left lower extremity with ulcer of unspecified site] Onset: 4 Episodic Past or Other Problems Problem Classification Problem Date Documented Da te Episodic/Chronic Esophageal disorders (3 sources) Esophageal disorders; Translations: [Gastro-esophageal reflux disease with esophagitis, without bleeding] Other lower respiratory disease (1 source) Shortness of breath; Translations: [SHORTNESS OF BREATH] Onset: 09-23-2022 Episodic Other lower respiratory disease (1 source) Dyspnea, unspecified; Translations: [DYSPNEA UNSPECIFIED] Onset: 09-23-2022 Episodic Other lower respiratory disease (1 source) Cough; Translations: [Cough, unspecified] Onset: 01-05-2014 Episodic Otitis media and related conditions (1 source) Acute suppurative otitis media without spontaneous rupture of ear drum; Translations: [Acute suppurative otitis media without spontaneous rupture of eardrum] Onset: 10-12-2016 Episodic Unclassified (2 sources) Unknown / UNK(Unknown) Onset: 07-31-2018 Results Test Name Value Interpretation Reference Range Facility US venous duplex LE BIon US venous duplex [facility] [place] [address] Ultrasound Report Signed Patient: Bashir Coats MR#: [id number] : 1955 Acct:[id number] Age/Sex: 68 / F ADM Date: 01/14/24 Loc: Room: Type: [facility] CLI Attending Dr: Angelic Slaughter MD Ordering Provider: Angelic Slaughter MD Date of Service: 01/14/24 US/US venous duplex LE BI: [id number] - Varicose veins of bilateral lower extremities w... Copies to: Angelic Slaughter MD Bilateral lower extremity full functional venous duplex examination Indication for study: Painful varicose veins PROCEDURE: Color-flow duplex scanning is used to interrogate the venous anatomy of both lower extremities. There is no evidence for deep vein thrombosis. Bilaterally the common femoral vein, femoral vein, and popliteal veins show good compressibility, color-flow, and augmentation. In the patient's right leg there is severe reflux for greater than 5 seconds at the saphenofemoral junction emptying into the greater saphenous vein. There is also venous valvular incompetence in the femoral vein with reflux for 4 seconds. Right greater saphenous vein is mildly dilated at 6 mm below the saphenofemoral junction and then remains [address] down to the mid calf. Scattered 2 to 3 mm varicosities are seen to arise from the length of the greater saphenous vein. The right lesser saphenous vein is competent and is normal in size but does have some clusters of varicosities arising from it. In the patient's left leg there is greater than 5 seconds of reflux at the saphenofemoral junction which largely empties into an anterior saphenous branch and greater saphenous vein. Greater saphenous vein is again dilated at 6 mm below the saphenofemoral junction and remains 4 mm down to the mid thigh after which becomes much smaller. It gives rise to extensive varicosities that are 2 to 3 mm throughout the thigh. Some 5 mm varicosities are noted in the calf. The lesser saphenous vein is competent and is normal in size with some scattered varicosities are smaller arising from it. US/US venous duplex LE BI IMPRESSION: No evidence for deep vein thrombosis in either lower extremity. Severe venous valvular incompetence with greater than 5 seconds of reflux is noted at both saphenofemoral junctions was also mild dilation of the greater saphenous vein bilaterally and extensive varicose vein degeneration bilaterally. There is an anterior saphenous branch on the left side as well. Impression dictated by: Bucky Reynaga M.D.01/15/2024 12:26 PM Dictation Location: [id number] Tech: Lizeth Zack Transcribed By: COLTON 01/15/24 1226 Dictated By: Bucky Reynaga MD 01/15/24 1224 Signed By: 01/15/24 1226 Normal [facility] Automated epithelial cells c ount in urine sediment (number/area)on 12-25-2023 Epithelial cells Auto (Urine sed) [#/Area] FEW #/LPF NONE/RARE [facility] Automated leukocytes count i n urine sediment (number/area)on 12-25-2023 WBC Auto (Urine sed) [#/Area] 5-10 #/HPF 0-2 [facility] Automated urine specific gra vity by refractometryon 12-25-2023 Specific gravity Refractometry automated (U) [Rel density] 1.010 1.005-1.025 [facility] Basophils Auto (Bld) [#/Vol] on 12-25-2023 Basophils (Bld) [#/Vol] 0.1 10 3/uL 0.0-0.1 [facility] Basophils/100 WBC Auto (Bld) on 12-25-2023 Basophils/100 WBC (Bld) 0.8 % 0.2-2.0 [facility] Bilirubin Auto test strip (U ) [Mass/Vol]on 12-25-2023 Bilirubin (U) [Mass/Vol] Negative NEGATIVE [facility] Casts typing in urine sedime nt by light microscopyon 12-25-2023 Casts LM Nom (Urine sed) NONE SEEN #/LPF NONE SEEN [facility] Color Auto (U)on 12-25-2023 Color (U) LT. YELLOW YELLOW [facility] Eosinophils/100 WBC Auto (Bl d)on 12-25-2023 Eosinophils/100 WBC (Bld) 1.4 % 0.9-7.0 [facility] Erythrocyte distribution wid th Auto (RBC) [Ratio]on 12-25-2023 Erythrocyte distribution width (RBC) [Ratio] 13.8 % 11.0-15.0 [facility] Estimated glomerular filtrat ion rate (GFR) non- Americanon 12-25-2023 GFR/1.73 sq M.predicted among non-blacks MDRD (S/P/Bld) [Vol rate/Area] mL/min/{1.73_m2} >=60 [facility] Globulin Calc (S) [Mass/Vol] on 12-25-2023 Globulin (S) [Mass/Vol] 3.5 g/dL [facility] Hematocrit Auto (Bld) [Volum e fraction]on 12-25-2023 Hematocrit (Bld) [Volume fraction] 39.7 % 36.0-48.0 [facility] Hemoglobin [Mass/volume] in Bloodon 12-25-2023 Hemoglobin (Bld) [Mass/Vol] 12.6 g/dL 12.0-16.0 [facility] Ketones Auto test strip (U) [Mass/Vol]on 12-25-2023 Ketones (U) [Mass/Vol] Negative NEGATIVE [facility] Laboratory - Chemistry and C hemistry - challengeon 12-25-2023 Albumin [Mass/Vol] 3.3 g/dL 3.4-5.0 [facility] ALP [Catalytic activity/Vol] 74 U/L 46-116 [facility] ALT [Catalytic activity/Vol] 27 U/L 14-59 [facility] AST [Catalytic activity/Vol] 17 U/L 15-37 [facility] Bilirubin [Mass/Vol] 0.3 mg/dL 0.2-1.0 [facility] Calcium [Mass/Vol] 9.0 mg/dL 8.5-10.1 [facility] Chloride [Moles/Vol] 104 mmol/L 98-107 [facility] CO2 [Moles/Vol] 29.7 mmol/L 21.0-32.0 [facility] Creatinine [Mass/Vol] 0.91 mg/dL 0.55-1.02 [facility] GFR/1.73 sq M.predicted MDRD (S/P/Bld) [Vol rate/Area] mL/min/{1.73_m2} >=60 [facility] Glucose [Mass/Vol] 94 mg/dL 74-106 [facility] Potassium [Moles/Vol] 3.7 mmol/L 3.5-5.1 [facility] Protein [Mass/Vol] 6.8 g/dL 6.4-8.2 [facility] Sodium [Moles/Vol] 143 mmol/L 136-145 [facility] Urea nitrogen [Mass/Vol] 18.0 mg/dL 7.0-18.0 [facility] Urea nitrogen/Creatinine [Mass ratio] 19.8 mg/mg [facility] Laboratory - Hematology and Cell countson 12-25-2023 ESR (Bld) [Velocity] 29 mm/h <=30 [facility] Immature granulocytes/100 WBC (Bld) 0.3 % 0.0-0.5 [facility] Leukocytes [#/volume] correc pan for nucleated erythrocytes in Blood by Automated counon 12-25-2023 WBC corrected for nucl RBC Auto (Bld) [#/Vol] 8.0 10 3/uL 4.0-11.0 [facility] Lymphocytes Auto (Bld) [#/Vo l]on 12-25-2023 Lymphocytes (Bld) [#/Vol] 2.6 10 3/uL 1.2-3.8 [facility] Lymphocytes/100 WBC Auto (Bl d)on 12-25-2023 Lymphocytes/100 WBC (Bld) 32.4 % 20.5-60.0 [facility] MCH Auto (RBC) [Entitic mass ]on 12-25-2023 MCH (RBC) [Entitic mass] 29.3 pg 26.7-34.0 [facility] MCHC Auto (RBC) [Mass/Vol]on 12-25-2023 MCHC (RBC) [Mass/Vol] 31.7 g/dL 29.9-35.2 [facility] MCV Auto (RBC) [Entitic vol] on 12-25-2023 MCV (RBC) [Entitic vol] 92.3 fL 81.0-99.0 [facility] Monocytes Auto (Bld) [#/Vol] on 12-25-2023 Monocytes (Bld) [#/Vol] 0.6 10 3/uL 0.3-0.8 [facility] Monocytes/100 WBC Auto (Bld) on 12-25-2023 Monocytes/100 WBC (Bld) 7.0 % 1.7-12.0 [facility] Mucus LM Ql (Urine sed)on Mucus Ql (Urine sed) TRACE NONE SEEN [facility] Neutrophils Auto (Bld) [#/Vo l]on 12-25-2023 Neutrophils (Bld) [#/Vol] 4.6 10 3/uL 1.4-6.5 [facility] Neutrophils/100 WBC Auto (Bl d)on 12-25-2023 Neutrophils/100 WBC (Bld) 58.1 % 43.0-75.0 [facility] No Panel Informationon 12-24 Eosinophils # (Auto) 0.1 10 3/uL 0.0-0.7 [facility] Immature Granulocyte # (Auto) 0.02 10 3/uL 0.00-0.03 [facility] Total Complement (CH50) 57 U/mL >41 [facility] Comment on above: Age Male Female 1 - 30 days Not Estab. Not Estab. 31 days - 6 months >32 >20 7 months - 17 years >39 >39 >17 years >41 >41 NOTE: The adult ( >17 years ) reference interval range is used to flag abnormals on this report. If the patient is 17 years old or younger, use the table above to determine out of range values.Performed at: [employer] [place] [id number] Director: Savage Vaughan PhD, Phone: [phone] Platelet mean volume Auto (B ld) [Entitic vol]on 12-25-2023 Platelet mean volume (Bld) [Entitic vol] 8.9 fL 9.5-13.5 [facility] Platelets Auto (Bld) [#/Vol] on 12-25-2023 Platelets (Bld) [#/Vol] 201 10 3/uL 150-450 [facility] Protein Auto test strip (U) [Mass/Vol]on 12-25-2023 Protein (U) [Mass/Vol] Negative NEG/TRACE [facility] RBC Auto (Bld) [#/Vol]on RBC (Bld) [#/Vol] 4.30 10 6/uL 4.20-5.40 [facility] Serum or plasma albumin/glob ulin mass ratioon 12-25-2023 Albumin/Globulin [Mass ratio] 0.9 {ratio} [facility] Serum or plasma anion gap de terminationon 12-25-2023 Anion gap [Moles/Vol] 13.0 mmol/L [facility] Serum or plasma complement C 3 measurement (mass/volume)on 12-25-2023 Complement C3 [Mass/Vol] 121 mg/dL 82-167 [facility] Serum or plasma complement C 4 measurement (mass/volume)on 12-25-2023 Complement C4 [Mass/Vol] 20 mg/dL 12-38 [facility] Comment on above: Performed at: [facility] [employer] [address] [id number] Director: Savage Vaughan PhD, Phone: [phone] Specific gravity Auto test s trip (U) [Rel density]on 12-25-2023 Specific gravity (U) [Rel density] CLEAR CLEAR [facility] Urine bacteria detection by automated methodon 12-25-2023 Bacteria Auto Ql (U) TRACE #/HPF NONE SEEN [facility] Urine glucose measurement by test strip (mass/volume)on 12-25-2023 Glucose Test strip (U) [Mass/Vol] Negative NEGATIVE [facility] Urine hemoglobin detection b y automated test stripon 12-25-2023 Hemoglobin Auto test strip Ql (U) MODERATE NEGATIVE [facility] Urine nitrite detection by a utomated test stripon 12-25-2023 Nitrite Auto test strip Ql (U) SMALL NEGATIVE [facility] Nitrite Auto test strip Ql (U) Negative NEGATIVE [facility] Urine sediment crystal ident ification by light microscopyon 12-25-2023 Crystals LM Nom (Urine sed) None Seen #/HPF None Seen [facility] Urine sediment leukocyte cou nt by microscopy (number/high power field)on 12-25-2023 WBC LM.HPF (Urine sed) [#/Area] 5-10 #/HPF NONE SEEN [facility] Urobilinogen Auto test strip (U) [Mass/Vol]on 12-25-2023 Urobilinogen Qn (U) 0.2 {Lora'U}/dL 0.2-1.0 [facility] pH Auto test strip (U)on pH (U) 5.5 [pH] 5.0-9.0 [facility] XR ankle LT min 3V*on 2022 XR ankle LT min 3V* [facility] [employer] Other XR ankle LT min 3V* [facility] [employer] Other XR ankle LT min 3V* [address] [facility] [email or web address]. Other XR ankle LT min 3V* Etienne FABIAN [id number] [place] [email or web address]. Other XR ankle LT min 3V* XRay Report Nort [email or web address] Other XR ankle LT min 3V* Signed [employer] Other XR ankle LT min 3V* Patient: Bashir Coats MR#: [id number] [place] [email or web address] Other XR ankle LT min 3V* : 1955 Acct:[id number] [place] [email or web address] Other XR ankle LT min 3V* Age/Sex: 68 / F ADM Date: 06/07/23 [employer] Other XR ankle LT min 3V* Loc: XDUCLY Room: Type: REG CLI [employer] Other XR ankle LT min 3V* Attending Dr: Chiara KINGSTON [employer] Other XR ankle LT min 3V* Copies to: VASHTI Carter [employer] Other XR ankle LT min 3V* Ordering Provider: VASHTI Carter [employer] Other XR ankle LT min 3V* Date of Service: 06/07/23 [employer] Other XR ankle LT min 3V* XR/XR ankle LT min 3V*: LEFT ANKLE PAIN [employer] Other XR ankle LT min 3V* LEFT ANKLE - 3 views [employer] Other XR ankle LT min 3V* CLINICAL HISTORY: Left medial ankle pain with swelling and tingling and burning for one month. No [employer] Other XR ankle LT min 3V* known trauma. No rt [email or web address] Other XR ankle LT min 3V* COMPARISON: None [employer] Other XR ankle LT min 3V* FINDINGS: [employer] Other XR ankle LT min 3V* Soft tissue swelling is noted. Ankle mortise appears intact with mild degenerative change. No acute [employer] Other XR ankle LT min 3V* bony process. Planta r spurring. [employer] Other XR ankle LT min 3V* XR/XR ankle LT min 3V* [employer] Other XR ankle LT min 3V* IMPRESSION: Nort [email or web address] Other XR ankle LT min 3V* SOFT TISSUE SWELLING WITHOUT ACUTE BONY PROCESS. DEGENERATIVE CHANGE. [employer] Other XR ankle LT min 3V* Impression dictated by: Tanner Jarquin Jr., D.OCasey06/07/2023 1:28 PM [employer] Other XR ankle LT min 3V* Dictation Location: [place] [address] [employer] Other XR ankle LT min 3V* Transcribed By: PWS 06/07/23 1328 [employer] Other XR ankle LT min 3V* Dictated By: Tanner Jarquin Jr, DO 06/07/23 1327 [employer] Other XR ankle LT min 3V* Signed By: [employer] Other XR ankle LT min 3V* 06/07/23 1328 No rt [email or web address] Other C3 and C4 COMPLEMENTon 02-10 Complement C3, Serum 141 mg/dL Normal 82-167 [facility] Comment on above: Performed By: #### C SUITE #### [facility] [address] [place] [address] Dr. Eboni Smith Complement C4, Serum 24 mg/dL Normal 12-38 [facility] Comment on above: Performed By: #### C SUITE #### [facility] [address] [place] [address] [address] Eboni Smith COMPLEMENT TOTAL (CH50)on Complement, Total (CH50) >60 Normal >41 [facility] Comment on above: Result Comment: Age Male Female 1 - 30 days Not Estab. Not Estab. 31 days - 6 months >32 >20 7 months - 17 years >39 >39 >17 years >41 >41 NOTE: The adult ( >17 years ) reference interval range is used to flag abnormals on this report. If the patient is 17 years old or younger, use the table above to determine out of range values. Performed By: #### C H50T #### [facility] [address] [place] [address] Dr. Eboni Smith CBC AUTO DIFFon 02-08-2023 BASO # 0.0 103/ul Normal 0.0-0.1 [facility] Comment on above: Performed By: #### C BC #### [facility] [address] [place] [address] Dr. Eboni Smith Basophils/100 WBC (Bld) 0.4 % Normal 0.2-2.0 [facility] Comment on above: Performed By: #### C BC #### [facility] [address] [place] [address] Dr. Eboni Smith EO # 0.2 103/ul Normal 0.0-0.7 [facility] Comment on above: Performed By: #### C BC #### [facility] [address] [place] [address] Dr. Eboni Smith Eosinophils/100 WBC (Bld) 1.6 % Normal 0.9-7.0 [facility] Comment on above: Performed By: #### C BC #### [facility] [address] [place] [address] Dr. Eboni Smith Erythrocyte distribution width (RBC) [Ratio] 14.6 % Normal 11.0-15.0 [facility] Comment on above: Performed By: #### C BC #### [facility] [address] [place] [address] Dr. Eboni Smith Hematocrit (Bld) [Volume fraction] 40.2 % Normal 36.0-48.0 [facility] Comment on above: Performed By: #### C BC #### [facility] [address] [place] [address] Dr. Eboni Smith Hemoglobin (Bld) [Mass/Vol] 12.7 g/dL Normal 12.0-16.0 [facility] Comment on above: Performed By: #### C BC #### [facility] [address] [place] [address] Dr. Eboni Smith IG # 0.06 10e3/ul Critically high 0.00-0.03 [facility] Comment on above: Performed By: #### C BC #### [facility] [address] [place] [address] Dr. Eboni Smith IG % 0.6 % Critically high 0.0-0.5 [facility] Comment on above: Performed By: #### C BC #### [facility] [address] [place] [address] Dr. Eboni Smith LYMPH # 3.4 103/ul Normal 1.2-3.8 [facility] Comment on above: Performed By: #### C BC #### [facility] [address] [place] [address] Dr. Eboni Smith Lymphocytes/100 WBC (Bld) 36.6 % Normal 20.5-60.0 [facility] Comment on above: Performed By: #### C BC #### [facility] [address] [place] [address] Dr. Eboni Smith MANUAL DIFF REQ NO Normal [facility] Comment on above: Performed By: #### C BC #### [facility] [address] [place] [address] Dr. Eboni Smith MCH (RBC) [Entitic mass] 28.6 pg Normal 26.7-34.0 [facility] Comment on above: Performed By: #### C BC #### [facility] [address] [place] [address] Dr. Eboni Smith MCHC (RBC) [Mass/Vol] 31.6 g/dL Normal 29.9-35.2 [facility] Comment on above: Performed By: #### C BC #### [facility] [address] [place] [address] Dr. Eboni Smith MCV (RBC) [Entitic vol] 90.5 fL Normal 81.0-99.0 [facility] Comment on above: Performed By: #### C BC #### [facility] [address] [place] [address] Dr. Eboni Smith MONO # 0.8 103/ul Normal 0.3-0.8 [facility] Comment on above: Performed By: #### C BC #### [facility] [address] [place] [address] Dr. Eboni Smith Monocytes/100 WBC (Bld) 8.2 % Normal 1.7-12.0 [facility] Comment on above: Performed By: #### C BC #### [facility] [address] [place] [address] Dr. Ebnoi Smith NEUT # 4.9 103/ul Normal 1.4-6.5 [facility] Comment on above: Performed By: #### C BC #### [facility] [address] [place] [address] Dr. Eboni Smith Neutrophils/100 WBC (Bld) 52.6 % Normal 43.0-75.0 [facility] Comment on above: Performed By: #### C BC #### [facility] [address] [place] [address] Dr. Eboni Smith Platelet mean volume (Bld) [Entitic vol] 8.5 fL Critically low 9.5-13.5 [facility] Comment on above: Performed By: #### C BC #### [facility] [address] [place] [address] Dr. Eboni Smith PLT 272 103/ul Normal 150-450 [facility] Comment on above: Performed By: #### C BC #### [facility] [address] [place] [address] Dr. Eboni Smith RBC 4.44 106/ul Normal 4.20-5.40 [facility] Comment on above: Performed By: #### C BC #### [facility] [address] [place] [address] Dr. Eboni Smith WBC 9.4 103/ul Normal 4.0-11.0 [facility] Comment on above: Performed By: #### C BC #### [facility] [address] [place] [address] Dr. Eboni Smith PROF 14(COMP METB)on 023 Albumin [Mass/Vol] 3.2 g/dL Critically low 3.4-5.0 [facility] Comment on above: Performed By: #### C MP #### [facility] [address] [place] [address] Dr. Eboni Smith Albumin/Globulin [Mass ratio] 0.9 {ratio} Normal [facility] Comment on above: Performed By: #### C MP #### [facility] [address] [place] [address] Dr. Eboni Smith ALP [Catalytic activity/Vol] 85 U/L Normal 46-116 [facility] Comment on above: Performed By: #### C MP #### [facility] [address] [place] [address] Dr. Eboni Smith ALT [Catalytic activity/Vol] 22 U/L Normal 14-59 [facility] Comment on above: Performed By: #### C MP #### [facility] [address] [place] [address] Dr. Eboni Smith Anion gap [Moles/Vol] 10.8 mmol/L Normal [facility] Comment on above: Performed By: #### C MP #### [facility] [address] [place] [address] [address] Eboni Smith AST [Catalytic activity/Vol] 16 U/L Normal 15-37 [facility] Comment on above: Performed By: #### C MP #### [facility] [address] [place] [address] Dr. Eboni Smith Bilirubin [Mass/Vol] 0.2 mg/dL Normal 0.2-1.0 [facility] Comment on above: Performed By: #### C MP #### [facility] [address] [place] [address] [address] Eboni Smith Calcium [Mass/Vol] 8.9 mg/dL Normal 8.5-10.1 [facility] Comment on above: Performed By: #### C MP #### [facility] [address] [place] [address] Dr. Eboni Smith Chloride [Moles/Vol] 106 mmol/L Normal 98-107 [facility] Comment on above: Performed By: #### C MP #### [facility] [address] [place] [address] Dr. Eboni Smith CO2 [Moles/Vol] 28.2 mmol/L Normal 21.0-32.0 [facility] Comment on above: Performed By: #### C MP #### [facility] [address] [place] [address] Dr. Eboni Smith Creatinine [Mass/Vol] 0.87 mg/dL Normal 0.55-1.02 [facility] Comment on above: Performed By: #### C MP #### [facility] [address] [place] [address] Dr. Eboni Smith EGFR-AF MALIAN >60 Normal >=60 [facility] Comment on above: Performed By: #### C MP #### [facility] [address] [place] [address] Dr. Eboni Smith EGFR-NON AF MALIAN >60 Normal >=60 [facility] Comment on above: Performed By: #### C MP #### [facility] [address] [place] [address] Dr. Eboni Smith Globulin (S) [Mass/Vol] 3.5 g/dL Normal [facility] Comment on above: Performed By: #### C MP #### [facility] [address] [place] [address] [address] Eboni Smith Glucose [Mass/Vol] 93 mg/dL Normal 74-106 [facility] Comment on above: Performed By: #### C MP #### [facility] [address] [place] [address] [address] Eboni Smith Potassium [Moles/Vol] 4.0 mmol/L Normal 3.5-5.1 [facility] Comment on above: Performed By: #### C MP #### [facility] [address] [place] [address] Dr. Eboni Smith Protein [Mass/Vol] 6.7 g/dL Normal 6.4-8.2 [facility] Comment on above: Performed By: #### C MP #### [facility] [address] [place] [address] [address] Eboni Smith Sodium [Moles/Vol] 141 mmol/L Normal 136-145 [facility] Comment on above: Performed By: #### C MP #### [facility] [address] [place] [address] [address] Eboni Smith Urea nitrogen [Mass/Vol] 18.0 mg/dL Normal 7.0-18.0 [facility] Comment on above: Performed By: #### C MP #### [facility] [address] [place] [address] [address] Eboni Smith Urea nitrogen/Creatinine [Mass ratio] 20.7 mg/mg Normal [facility] Comment on above: Performed By: #### C MP #### [facility] [address] [place] [address] [address] Eboni Smith SED RATE WESTERGRENon 2022 SED RATE 22 mm/hr Normal <=30 [facility] Comment on above: Performed By: #### C SUITE #### [facility] [address] [place] [address] [address] Eboni Smith UA RANDOM W/MICROSCOPICon BACTERIA TRACE Abnormal NONE SEEN The [facility] Comment on above: Performed By: #### C BC #### [facility] [address] [place] [address] [address] Eboni Smith Bilirubin Ql (U) Negative Normal NEGATIVE [facility] Comment on above: Performed By: #### C BC #### [facility] [address] [place] [address] Dr. Eboni Smith CAST NONE SEEN Normal NONE SEEN The [facility] Comment on above: Performed By: #### C BC #### [facility] [address] [place] [address] Dr. Eboni Smith Clarity (U) SL CLOUDY Abnormal CLEAR [facility] Comment on above: Performed By: #### C BC #### [facility] [address] [place] [address] Dr. Eboni Smith Color (U) LT. YELLOW Normal YELLOW The [facility] Comment on above: Performed By: #### C BC #### [facility] [address] [place] [address] Dr. Eboni Smith Crystals LM Nom (Urine sed) NONE SEEN Normal NONE SEEN The [facility] Comment on above: Performed By: #### C BC #### [facility] [address] [place] [address] Dr. Eboni Smith Epithelial cells LM Ql (Urine sed) FEW Abnormal NONE SEEN /RARE The [facility] Comment on above: Performed By: #### C BC #### [facility] [address] [place] [address] Dr. Eboni Smith Glucose Ql (U) Negative Normal NEGATIVE The [facility] Comment on above: Performed By: #### C BC #### [facility] [address] [place] [address] Dr. Eboni Smith Hemoglobin Ql (U) TRACE-INTACT Abnormal NEGATIVE The [facility] Comment on above: Performed By: #### C BC #### [facility] [address] [place] [address] Dr. Eboni Smith Ketones Ql (U) Negative Normal NEGATIVE The [facility] Comment on above: Performed By: #### C BC #### [facility] [address] [place] [address] Dr. Eboni Smith LEUKOCYTES SMALL Abnormal NEGATIVE [facility] Comment on above: Performed By: #### C BC #### [facility] [address] [place] [address] Dr. Eboni Smith MUCOUS NONE SEEN Normal NONE SEEN [facility] Comment on above: Performed By: #### C BC #### [facility] [address] [place] [address] Dr. Eboni Smith Nitrite Ql (U) Negative Normal NEGATIVE [facility] Comment on above: Performed By: #### C BC #### [facility] [address] [place] [address] Dr. Eboni Smith pH (U) 5.5 [pH] Normal 5-9 [facility] Comment on above: Performed By: #### C BC #### [facility] [address] [place] [address] Dr. Eboni Smith RBC 0-2 Normal 0-2 [facility] Comment on above: Performed By: #### C BC #### [facility] [address] [place] [address] Dr. Eboni Smith SPEC GRAVITY 1.005 Normal 1.005-<=1.02 5 [facility] Comment on above: Performed By: #### C BC #### [facility] [address] [place] [address] Dr. Eboni Smith UA PROTEIN Negative Normal NEGATIVE/ TRACE The [facility] Comment on above: Performed By: #### C BC #### [facility] [address] [place] [address] Dr. Eboni Smith Urobilinogen Qn (U) 0.2 {Lora'U}/dL Normal 0.2 - 1. 0 [facility] Comment on above: Performed By: #### C BC #### [facility] [address] [place] [address] Dr. Eboni Smith WBC 2-5 Abnormal NONE SEEN [facility] Comment on above: Performed By: #### C BC #### [facility] [address] [place] [address] Dr. Eboni Smith XR shoulder RT min 2V*on XR shoulder RT min 2V* [facility] [email or web address] Other XR shoulder RT min 2V* [facility] [email or web address]. Other XR shoulder RT min 2V* [address] [place] [address] [email or web address]. Other XR shoulder RT min 2V* [facility] [employer] Other XR shoulder RT min 2V* XRay Report [employer] Other XR shoulder RT min 2V* Signed [employer] Other XR shoulder RT min 2V* Patient: Bashir Coats MR#: [id number] [email or web address] Other XR shoulder RT min 2V* : 1955 Acct:[id number] [employer] Other XR shoulder RT min 2V* Age/Sex: 67 / F ADM Date: 12/16/22 [employer] Other XR shoulder RT min 2V* Loc: XDUCLY Room: Type: [facility] [employer] Other XR shoulder RT min 2V* Attending Dr: Chiara KINGSTON [employer] Other XR shoulder RT min 2V* Copies to: VASHTI Carter [employer] Other XR shoulder RT min 2V* Ordering Provider: VASHTI Carter [employer] Other XR shoulder RT min 2V* Date of Service: 12/16/22 [employer] Other XR shoulder RT min 2V* XR/XR elbow RT min 3V*: Right elbow pain;Acute pain of right shoulder [employer] Other XR shoulder RT min 2V* ([id number]) XR/XR shoulder RT min 2V*: Right elbow pain;Acute pain of right shoulder [employer] Other XR shoulder RT min 2V* RIGHT ELBOW - 4 views [employer] Other XR shoulder RT min 2V* CLINICAL HISTORY: Right elbow and shoulder pain status post fall 2 days ago. [employer] Other XR shoulder RT min 2V* COMPARISON: None [employer] Other XR shoulder RT min 2V* FINDINGS: [employer] Other XR shoulder RT min 2V* Right shoulder: Mild degenerative changes of the AC and glenohumeral joints without acute bony [employer] Other XR shoulder RT min 2V* process. [employer] Other XR shoulder RT min 2V* Right elbow: Soft tissue swelling. No elbow joint effusion. No acute bony process. Mild spurring [employer] Other XR shoulder RT min 2V* along the epicondyles. [employer] Other XR shoulder RT min 2V* XR/XR elbow RT min 3V* [employer] Other XR shoulder RT min 2V* IMPRESSION: [employer] Other XR shoulder RT min 2V* NO ACUTE BONY PROCESS. [employer] Other XR shoulder RT min 2V* Impression dictated by: Tanner Jarquin Jr., D.O.12/16/2022 2:46 PM [employer] Other XR shoulder RT min 2V* Dictation Location: [place] [address] [employer] Other XR shoulder RT min 2V* Transcribed By: COLTON 12/16/22 1446 [employer] Other XR shoulder RT min 2V* Dictated By: Tanner Jarquin Jr, DO 12/16/22 1443 [employer] Other XR shoulder RT min 2V* Signed By: [employer] Other XR shoulder RT min 2V* 12/16/22 1446 [employer] Other C3 and C4 COMPLEMENTon 09-29 Complement C3, Serum 118 mg/dL Normal 82-167 [facility] Comment on above: Performed By: #### C BC #### [facility] [address] [place] [address] Dr. Eboni Smith Complement C4, Serum 25 mg/dL Normal 12-38 [facility] Comment on above: Performed By: #### C BC #### [facility] [address] [place] [address] Dr. Eboni Smith COMPLEMENT TOTAL (CH50)on Complement, Total (CH50) >60 Normal >41 [facility] Comment on above: Result Comment: Age Male Female 1 - 30 days Not Estab. Not Estab. 31 days - 6 months >32 >20 7 months - 17 years >39 >39 >17 years >41 >41 NOTE: The adult ( >17 years ) reference interval range is used to flag abnormals on this report. If the patient is 17 years old or younger, use the table above to determine out of range values. Performed By: #### C SUITE #### [facility] [address] [place] [address] Dr. Eboni Smith CBC AUTO DIFFon 09-28-2022 BASO # 0.0 103/ul Normal 0.0-0.1 [facility] Comment on above: Performed By: #### C BC #### [facility] [address] [place] [address] Dr. Eboni Smith Basophils/100 WBC (Bld) 0.6 % Normal 0.2-2.0 [facility] Comment on above: Performed By: #### C BC #### [facility] [address] [place] [address] Dr. Eboni Smith EO # 0.2 103/ul Normal 0.0-0.7 [facility] Comment on above: Performed By: #### C BC #### [facility] [address] [place] [address] Dr. Eboni Smith Eosinophils/100 WBC (Bld) 2.3 % Normal 0.9-7.0 [facility] Comment on above: Performed By: #### C BC #### [facility] [address] [place] [address] Dr. Eboni Smith Erythrocyte distribution width (RBC) [Ratio] 13.8 % Normal 11.0-15.0 [facility] Comment on above: Performed By: #### C BC #### [facility] [address] [place] [address] Dr. Eboni Smith Hematocrit (Bld) [Volume fraction] 39.7 % Normal 36.0-48.0 [facility] Comment on above: Performed By: #### C BC #### [facility] [address] [place] [address] Dr. Eboni Smith Hemoglobin (Bld) [Mass/Vol] 12.7 g/dL Normal 12.0-16.0 [facility] Comment on above: Performed By: #### C BC #### [facility] [address] [place] [address] Dr. Eboni Smith IG # 0.02 10e3/ul Normal 0.00-0.03 [facility] Comment on above: Performed By: #### C BC #### [facility] [address] [place] [address] Dr. Eboni Smith IG % 0.3 % Normal 0.0-0.5 [facility] Comment on above: Performed By: #### C BC #### [facility] [address] [place] [address] Dr. Eboni Smith LYMPH # 2.1 103/ul Normal 1.2-3.8 [facility] Comment on above: Performed By: #### C BC #### [facility] [address] [place] [address] Dr. Eboni Smith Lymphocytes/100 WBC (Bld) 31.2 % Normal 20.5-60.0 [facility] Comment on above: Performed By: #### C BC #### [facility] [address] [place] [address] Dr. Eboni Smith MANUAL DIFF REQ NO Normal [facility] Comment on above: Performed By: #### C BC #### [facility] [address] [place] [address] Dr. Eboni Smith MCH (RBC) [Entitic mass] 29.3 pg Normal 26.7-34.0 [facility] Comment on above: Performed By: #### C BC #### [facility] [address] [place] [address] Dr. Eboni Smith MCHC (RBC) [Mass/Vol] 32.0 g/dL Normal 29.9-35.2 [facility] Comment on above: Performed By: #### C BC #### [facility] [address] [place] [address] Dr. Eboni Smith MCV (RBC) [Entitic vol] 91.5 fL Normal 81.0-99.0 [facility] Comment on above: Performed By: #### C BC #### [facility] [address] [place] [address] Dr. Eboni Smith MONO # 0.5 103/ul Normal 0.3-0.8 [facility] Comment on above: Performed By: #### C BC #### [facility] [address] [place] [address] Dr. Eboni Smith Monocytes/100 WBC (Bld) 7.3 % Normal 1.7-12.0 [facility] Comment on above: Performed By: #### C BC #### [facility] [address] [place] [address] Dr. Eboni Smith NEUT # 4.0 103/ul Normal 1.4-6.5 [facility] Comment on above: Performed By: #### C BC #### [facility] [address] [place] [address] Dr. Eboni Smith Neutrophils/100 WBC (Bld) 58.3 % Normal 43.0-75.0 [facility] Comment on above: Performed By: #### C BC #### [facility] [address] [place] [address] [address] Eboni Smith Platelet mean volume (Bld) [Entitic vol] 8.5 fL Critically low 9.5-13.5 [facility] Comment on above: Performed By: #### C BC #### [facility] [address] [place] [address] Dr. Eboni Smith PLT 200 103/ul Normal 150-450 [facility] Comment on above: Performed By: #### C BC #### [facility] [address] [place] [address] [address] Eboni Smith RBC 4.34 106/ul Normal 4.20-5.40 [facility] Comment on above: Performed By: #### C BC #### [facility] [address] [place] [address] Dr. Eboni Smith WBC 6.9 103/ul Normal 4.0-11.0 [facility] Comment on above: Performed By: #### C BC #### [facility] [address] [place] [address] Dr. Eboni Smith PROF 14(COMP METB)on 022 Albumin [Mass/Vol] 3.4 g/dL Normal 3.4-5.0 [facility] Comment on above: Performed By: #### C BC #### [facility] [address] [place] [address] Dr. Eboni Smith Albumin/Globulin [Mass ratio] 1.0 {ratio} Normal [facility] Comment on above: Performed By: #### C BC #### [facility] [address] [place] [address] Dr. Eboni Smith ALP [Catalytic activity/Vol] 75 U/L Normal 46-116 [facility] Comment on above: Performed By: #### C BC #### [facility] [address] [place] [address] Dr. Eboni Smith ALT [Catalytic activity/Vol] 16 U/L Normal 14-59 [facility] Comment on above: Performed By: #### C BC #### [facility] [address] [place] [address] [address] Eboni Smith Anion gap [Moles/Vol] 10.2 mmol/L Normal [facility] Comment on above: Performed By: #### C BC #### [facility] [address] [place] [address] [address] Eboni Smith AST [Catalytic activity/Vol] 18 U/L Normal 15-37 [facility] Comment on above: Performed By: #### C BC #### [facility] [address] [place] [address] [address] Eobni Smith Bilirubin [Mass/Vol] 0.3 mg/dL Normal 0.2-1.0 [facility] Comment on above: Performed By: #### C BC #### [facility] [address] [place] [address] [address] Eboni Smith Calcium [Mass/Vol] 9.3 mg/dL Normal 8.5-10.1 [facility] Comment on above: Performed By: #### C BC #### [facility] [address] [place] [address] [address] Eboni Smith Chloride [Moles/Vol] 105 mmol/L Normal 98-107 [facility] Comment on above: Performed By: #### C BC #### [facility] [address] [place] [address] [address] Eboni Smith CO2 [Moles/Vol] 29.1 mmol/L Normal 21.0-32.0 [facility] Comment on above: Performed By: #### C BC #### [facility] [address] [place] [address] [address] Eboni Smith Creatinine [Mass/Vol] 0.87 mg/dL Normal 0.55-1.02 [facility] Comment on above: Performed By: #### C BC #### [facility] [address] [place] [address] [address] Eboni Smith EGFR-AF MALIAN >60 Normal >=60 [facility] Comment on above: Performed By: #### C BC #### [facility] [address] [place] [address] Dr. Eboni Smith EGFR-NON AF MALIAN >60 Normal >=60 [facility] Comment on above: Performed By: #### C BC #### [facility] [address] [place] [address] Dr. Eboni Smith Globulin (S) [Mass/Vol] 3.4 g/dL Normal [facility] Comment on above: Performed By: #### C BC #### [facility] [address] [place] [address] [address] Eboni Smith Glucose [Mass/Vol] 82 mg/dL Normal 74-106 [facility] Comment on above: Performed By: #### C BC #### [facility] [address] [place] [address] Dr. Eboni Smith Potassium [Moles/Vol] 4.3 mmol/L Normal 3.5-5.1 [facility] Comment on above: Performed By: #### C BC #### [facility] [address] [place] [address] Dr. Eboni Smith Protein [Mass/Vol] 6.8 g/dL Normal 6.4-8.2 [facility] Comment on above: Performed By: #### C BC #### [facility] [address] [place] [address] Dr. Eboni Smith Sodium [Moles/Vol] 140 mmol/L Normal 136-145 [facility] Comment on above: Performed By: #### C BC #### [facility] [address] [place] [address] Dr. Eboni Smith Urea nitrogen [Mass/Vol] 16.0 mg/dL Normal 7.0-18.0 [facility] Comment on above: Performed By: #### C BC #### [facility] [address] [place] [address] Dr. Eboni Smith Urea nitrogen/Creatinine [Mass ratio] 18.4 mg/mg Normal [facility] Comment on above: Performed By: #### C BC #### [facility] [address] [place] [address] Dr. Eboni Smith SED RATE [facility] 2021 SED RATE 17 mm/hr Normal <=30 [facility] Comment on above: Performed By: #### C BC #### [facility] [address] [place] [address] Dr. Eboni Smith UA RANDOM W/MICROSCOPICon BACTERIA TRACE Abnormal NONE SEEN The [facility] Comment on above: Performed By: #### C BC #### [facility] [address] [place] [address] Dr. Eboni Smith Bilirubin Ql (U) Negative Normal NEGATIVE [facility] Comment on above: Performed By: #### C BC #### [facility] [address] [place] [address] Dr. Eboni Smith CAST NONE SEEN Normal NONE SEEN [facility] Comment on above: Performed By: #### C BC #### [facility] [address] [place] [address] Dr. Eboni Smith Clarity (U) CLEAR Normal CLEAR [facility] Comment on above: Performed By: #### C BC #### [facility] [address] [place] [address] Dr. Eboni Smith Color (U) LT. YELLOW Normal YELLOW [facility] Comment on above: Performed By: #### C BC #### [facility] [address] [place] [address] Dr. Eboni Smith Crystals LM Nom (Urine sed) NONE SEEN Normal NONE SEEN [facility] Comment on above: Performed By: #### C BC #### [facility] [address] [place] [address] Dr. Eboni Smith Epithelial cells LM Ql (Urine sed) FEW Abnormal NONE SEEN /RARE [facility] Comment on above: Performed By: #### C BC #### [facility] [address] [place] [address] Dr. Eboni Smith Glucose Ql (U) Negative Normal NEGATIVE [facility] Comment on above: Performed By: #### C BC #### [facility] [address] [place] [address] Dr. Eboni Smith Hemoglobin Ql (U) MODERATE Abnormal NEGATIVE [facility] Comment on above: Performed By: #### C BC #### [facility] [address] [place] [address] Dr. Eboni Smith Ketones Ql (U) Negative Normal NEGATIVE [facility] Comment on above: Performed By: #### C BC #### [facility] [address] [place] [address] Dr. Eboni Smith LEUKOCYTES TRACE Abnormal NEGATIVE [facility] Comment on above: Performed By: #### C BC #### [facility] [address] [place] [address] Dr. Eboni Smith MUCOUS NONE SEEN Normal NONE SEEN [facility] Comment on above: Performed By: #### C BC #### [facility] [address] [place] [address] Dr. Eboni Smith Nitrite Ql (U) Negative Normal NEGATIVE [facility] Comment on above: Performed By: #### C BC #### [facility] [address] [place] [address] Dr. Eboni Smith pH (U) 5.0 [pH] Normal 5-9 [facility] Comment on above: Performed By: #### C BC #### [facility] [address] [place] [address] Dr. Eboni Smith RBC 5-10 Abnormal 0-2 [facility] Comment on above: Performed By: #### C BC #### [facility] [address] [place] [address] Dr. Eboni Smith SPEC GRAVITY 1.010 Normal 1.005-<=1.02 5 [facility] Comment on above: Performed By: #### C BC #### [facility] [address] [place] [address] Dr. Eboni Smith UA PROTEIN Negative Normal NEGATIVE/ TRACE [facility] Comment on above: Performed By: #### C BC #### [facility] [address] [place] [address] Dr. Eboni Smith Urobilinogen Qn (U) 0.2 {Lora'U}/dL Normal 0.2 - 1. 0 [facility] Comment on above: Performed By: #### C BC #### [facility] [address] [place], [place] [address] Dr. Eboni Smith WBC 5-10 Abnormal NONE SEEN [facility] Comment on above: Performed By: #### C BC #### [facility] [address] [place], [place] [address] Dr. Eboni Smith COVID-19 SOFIAOrdered By: Whitney Neely on 09-18-2022 SARS-CoV+SARS-CoV-2 (COVID-19) Ag IA.rapid Ql (Resp) Negative Negative [facility] Comment on above: This is a duplicate Lona SARS Antigen (KARY) result to be used for statistical tracking purpose only. CT CHEST HI RESOLUTIONon CT CHEST HI RESOLUTION EXAMINATION: CT CHEST HI RESOLUTION HISTORY: Fibrosis of lung COMPARISON: No relevant comparison [id number]/2020ilable. TECHNIQUE: Axial images were obtained at 10 mm intervals during inspiration and expiration in the supine and prone positions. No IV contrast given. Dose reduction techniques were achieved by using automated exposure control and/or adjustment of mA and/or kV according to patient size and/or use of iterative reconstruction technique. FINDINGS: LUNGS: No visible pulmonary disease. PLEURA: No mass, effusion, or pneumothorax. CHE: No mass or adenopathy. MEDIASTINUM: No mass or adenopathy. CHEST WALL: No mass or axillary adenopathy LIMITED ABDOMEN: Fluid and debris within mid and distal esophagus. Limited images of the upper abdomen. OTHER: Negative. IMPRESSION: 1. No significant chronic interstitial changes. No acute infiltrates. 2. Fluid and debris within mildly distended esophagus; gastroesophageal reflux versus lack of esophageal peristalsis. Electronically authenticated by: EULALIA MORALES Date: 2022-09-18 15:20 Normal [facility] ECHOCARDIO M/2D COMPLETEon 1 11-19-2021 ECHOCARDIO M/2D COMPLETE Patient: BASHIR COATS Exam Date: 09/18/2022 : 1955 Gender:F Ordering : DR ANGELIC VICK M.D. Admission #: [id number] Family : DR STEVE ARMENDARIZ D.O. Order #: [id number] CLICK HERE TO VIEW EXAM ECHOCARDIOGRAM REPORT PROCEDURE: CARDIO PULMONARY ECHOCARDIO M/2D COMP INDICATIONS: Interstitial lung disease COMPARISON: None. DESCRIPTION: COMPLETE ECHOCARDIOGRAM Real-time transthoracic echocardiography with 2D, M-mode, spectral and color flow Doppler performed. QUALITY: Technical quality was good. LEFT VENTRICLE: Normal chamber size. Mild concentric left ventricular hypertrophy. LV EF: Normal left ventricular ejection fraction, (>55%). DIASTOLIC: Normal diastolic function. ATRIAL SEPTUM: Visually appears intact. LEFT ATRIUM: Normal chamber size. RIGHT ATRIUM: Normal chamber size. RIGHT VENTRICLE: Normal chamber size. Normal systolic function. TRICUSPID VALVE: Normal mobility and thickness. No stenosis with mild regurgitation. No evidence of pulmonary hypertension. RVSP 27 mmHg MITRAL VALVE: Normal mobility and thickness. No evidence of mitral valve stenosis. Mild mitral annular calcification. Mild mitral regurgitation. AORTIC VALVE: Normal trileaflet appearance. No visible sclerosis. Normal leaflet mobility. No evidence of aortic valve stenosis. No aortic regurgitation. AORTIC ROOT: Normal diameter and appearance. PULMONIC VALVE: Not well visualized. No stenosis. No regurgitation. PERICARDIUM: Anterior free space; trivial effusion versus fat pad. IVC: Collapses with inspirations. CONCLUSION: Global left ventricular systolic function is normal; visually estimated ejection fraction is 60 to 65%. No significant wall motion abnormalities. Mild left ventricular hypertrophy. The right ventricle is normal in size and systolic function. Mild tricuspid regurgitation. Mild mitral regurgitation. Anterior free space; trivial effusion versus fat pad. Adult Echocardiography Procedure Report Left Ventricle Left Atrium Mitral Valve Right Ventricle Aorta Aortic Valve Tricuspid Valve Pulmonic Valve Right Atrium Dictated by: Lavelle Owens M.D. on 09/20/2022 at 13:57 Approved by: Lavelle Owens M.D. on 09/20/2022 at 13:59 Normal [facility] HEMOGLOBINon 09-18-2022 Hemoglobin (Bld) [Mass/Vol] 12.4 g/dL Normal 12.0-16.0 [facility] Comment on above: Performed By: #### C SUITE #### [facility] [address] [place] [address] Dr. Eboni Smith No Panel InformationOrdered By: Alex Neely on 09-18-2022 SARS Antigen (LFIA) [facility] SARS Antigen (LFIA) [facility] COMPLEMENT TOTAL (CH50)on 08 -29-2022 Complement, Total (CH50) 59 U/mL Normal >41 [facility] Comment on above: Result Comment: Age Male Female 1 - 30 days Not Estab. Not Estab. 31 days - 6 months >32 >20 7 months - 17 years >39 >39 >17 years >41 >41 NOTE: The adult ( >17 years ) reference interval range is used to flag abnormals on this report. If the patient is 17 years old or younger, use the table above to determine out of range values. Performed By: #### C H50T #### [facility] [address] [place] [address] Dr. Eboni Smith C3 and C4 COMPLEMENTon 06-10 Complement C3, Serum 118 mg/dL Normal 82-167 [facility] Comment on above: Performed By: #### C SUITE #### [facility] [address] [place] [address] Dr. Eboni Smith Complement C4, Serum 22 mg/dL Normal 12-38 [facility] Comment on above: Performed By: #### C SUITE #### [facility] [address] [place] [address] Dr. Eboni Smith CBC AUTO DIFFon 06-09-2022 BASO # 0.0 103/ul Normal 0.0-0.1 [facility] Comment on above: Performed By: #### C BC #### [facility] [address] [place] [address] Dr. Eboni Smith Basophils/100 WBC (Bld) 0.4 % Normal 0.2-2.0 [facility] Comment on above: Performed By: #### C BC #### [facility] [address] [place] [address] Dr. Eboni Smith EO # 0.2 103/ul Normal 0.0-0.7 [facility] Comment on above: Performed By: #### C BC #### [facility] [address] [place] [address] Dr. Eboni Smith Eosinophils/100 WBC (Bld) 2.3 % Normal 0.9-7.0 [facility] Comment on above: Performed By: #### C BC #### [facility] [address] [place] [address] Dr. Eboni Smith Erythrocyte distribution width (RBC) [Ratio] 13.6 % Normal 11.0-15.0 [facility] Comment on above: Performed By: #### C BC #### [facility] [address] [place] [address] Dr. Eboni Smith Hematocrit (Bld) [Volume fraction] 40.7 % Normal 36.0-48.0 [facility] Comment on above: Performed By: #### C BC #### [facility] [address] [place] [address] Dr. Eboni Smith Hemoglobin (Bld) [Mass/Vol] 12.9 g/dL Normal 12.0-16.0 [facility] Comment on above: Performed By: #### C BC #### [facility] [address] [place] [address] Dr. Eboni Smith IG # 0.02 10e3/ul Normal 0.00-0.03 [facility] Comment on above: Performed By: #### C BC #### [facility] [address] [place] [address] Dr. Eboni Smith IG % 0.3 % Normal 0.0-0.5 [facility] Comment on above: Performed By: #### C BC #### [facility] [address] [place] [address] Dr. Eboin Smith LYMPH # 2.3 103/ul Normal 1.2-3.8 [facility] Comment on above: Performed By: #### C BC #### [facility] [address] [place] [address] Dr. Eboni Smith Lymphocytes/100 WBC (Bld) 33.6 % Normal 20.5-60.0 [facility] Comment on above: Performed By: #### C BC #### [facility] [address] [place] [address] Dr. Eboni Smith MANUAL DIFF REQ NO Normal [facility] Comment on above: Performed By: #### C BC #### [facility] [address] [place] [address] Dr. Eboni Smith MCH (RBC) [Entitic mass] 29.5 pg Normal 26.7-34.0 [facility] Comment on above: Performed By: #### C BC #### [facility] [address] [place] [address] Dr. Eboni Smith MCHC (RBC) [Mass/Vol] 31.7 g/dL Normal 29.9-35.2 [facility] Comment on above: Performed By: #### C BC #### [facility] [address] [place] [address] Dr. Eboni Smith MCV (RBC) [Entitic vol] 92.9 fL Normal 81.0-99.0 [facility] Comment on above: Performed By: #### C BC #### [facility] [address] [place] [address] Dr. Eboni Smith MONO # 0.6 103/ul Normal 0.3-0.8 [facility] Comment on above: Performed By: #### C BC #### [facility] [address] [place] [address] Dr. Eboni Smith Monocytes/100 WBC (Bld) 8.1 % Normal 1.7-12.0 [facility] Comment on above: Performed By: #### C BC #### [facility] [address] [place] [address] Dr. Eboni Smith NEUT # 3.8 103/ul Normal 1.4-6.5 [facility] Comment on above: Performed By: #### C BC #### [facility] [address] [place] [address] Dr. Eboni Smith Neutrophils/100 WBC (Bld) 55.3 % Normal 43.0-75.0 [facility] Comment on above: Performed By: #### C BC #### [facility] [address] [place] [address] Dr. Eboni Smith Platelet mean volume (Bld) [Entitic vol] 8.8 fL Critically low 9.5-13.5 [facility] Comment on above: Performed By: #### C BC #### [facility] [address] [place] [address] Dr. Eboni Smith PLT 209 103/ul Normal 150-450 [facility] Comment on above: Performed By: #### C BC #### [facility] [address] [place] [address] Dr. Eboni Smith RBC 4.38 106/ul Normal 4.20-5.40 [facility] Comment on above: Performed By: #### C BC #### [facility] [address] [address] [address] Eboni Smith WBC 6.9 103/ul Normal 4.0-11.0 [facility] Comment on above: Performed By: #### C BC #### [facility] [address] [place] [address] Dr. Eboni Smith PROF 14(COMP METB)on 022 Albumin [Mass/Vol] 3.6 g/dL Normal 3.4-5.0 [facility] Comment on above: Performed By: #### C SUITE #### [facility] [address] [place] [address] Dr. Eboni Smith Albumin/Globulin [Mass ratio] 1.1 {ratio} Normal [facility] Comment on above: Performed By: #### C SUITE #### [facility] [address] [place] [address] Dr. Eboni Smith ALP [Catalytic activity/Vol] 78 U/L Normal 46-116 [facility] Comment on above: Performed By: #### C SUITE #### [facility] [address] [place] [address] Dr. Eboni Smith ALT [Catalytic activity/Vol] 19 U/L Normal 14-59 [facility] Comment on above: Performed By: #### C SUITE #### [facility] [address] [place] [address] Dr. Eboni Smith Anion gap [Moles/Vol] 10.4 mmol/L Normal [facility] Comment on above: Performed By: #### C SUITE #### [facility] [address] [place] [address] Dr. Eboni Smith AST [Catalytic activity/Vol] 18 U/L Normal 15-37 [facility] Comment on above: Performed By: #### C SUITE #### [facility] [address] [address] [address] Eboni Smith Bilirubin [Mass/Vol] 0.3 mg/dL Normal 0.2-1.0 [facility] Comment on above: Performed By: #### C SUITE #### [facility] [address] [address] [address] Eboni Smith Calcium [Mass/Vol] 8.9 mg/dL Normal 8.5-10.1 [facility] Comment on above: Performed By: #### C SUITE #### [facility] [address] [address] [address] Eboni Smith Chloride [Moles/Vol] 105 mmol/L Normal 98-107 [facility] Comment on above: Performed By: #### C SUITE #### [facility] [address] [place] [address] Dr. Eboni Smith CO2 [Moles/Vol] 28.8 mmol/L Normal 21.0-32.0 [facility] Comment on above: Performed By: #### C SUITE #### [facility] [address] [place] [address] Dr. Eboni Smith Creatinine [Mass/Vol] 0.88 mg/dL Normal 0.55-1.02 [facility] Comment on above: Performed By: #### C SUITE #### [facility] [address] [place] [address] Dr. Eboni Smith EGFR-AF MALIAN >60 Normal >=60 [facility] Comment on above: Performed By: #### C SUITE #### [facility] [address] [place] [address] Dr. Eboni Smith EGFR-NON AF MALIAN >60 Normal >=60 [facility] Comment on above: Performed By: #### C SUITE #### [facility] [address] [place] [address] Dr. Eboni Smith Globulin (S) [Mass/Vol] 3.3 g/dL Normal [facility] Comment on above: Performed By: #### C SUITE #### [facility] [address] [address] [address] Eboni Smith Glucose [Mass/Vol] 98 mg/dL Normal 74-106 [facility] Comment on above: Performed By: #### C SUITE #### [facility] [address] [address] [address] Eboni Smith Potassium [Moles/Vol] 4.2 mmol/L Normal 3.5-5.1 [facility] Comment on above: Performed By: #### C SUITE #### [facility] [address] [address] [address] Eboni Smith Protein [Mass/Vol] 6.9 g/dL Normal 6.4-8.2 [facility] Comment on above: Performed By: #### C SUITE #### [facility] [address] [place] [address] Dr. Eboni Smith Sodium [Moles/Vol] 140 mmol/L Normal 136-145 [facility] Comment on above: Performed By: #### C SUITE #### [facility] [address] [place] [address] Dr. Eboni Smith Urea nitrogen [Mass/Vol] 22.0 mg/dL Critically high 7.0-18.0 [facility] Comment on above: Performed By: #### C SUITE #### [facility] [address] [place] [address] Dr. Eboni Smith Urea nitrogen/Creatinine [Mass ratio] 25.0 mg/mg Normal [facility] Comment on above: Performed By: #### C SUITE #### [facility] [address] [place] [address] Dr. Eboni Smith SED RATE WESTERGRENon 2021 SED RATE 21 mm/hr Normal <=30 [facility] Comment on above: Performed By: #### C SUITE #### [facility] [address] [place] [address] Dr. Eboni Smith UA RANDOM W/MICROSCOPICon BACTERIA NONE SEEN Normal NONE SEEN [facility] Comment on above: Performed By: #### U AMIC #### [facility] [address] [address] [address] Eboni Smith Bilirubin Ql (U) Negative Normal NEGATIVE [facility] Comment on above: Performed By: #### U AMIC #### [facility] [address] [address] [address] Eboni Smith CAST NONE SEEN Normal NONE SEEN [facility] Comment on above: Performed By: #### U AMIC #### [facility] [address] [address] [address] Eboni Smith Clarity (U) CLEAR Normal CLEAR [facility] Comment on above: Performed By: #### U AMIC #### [facility] [address] [address] [address] Eboni Smith Color (U) LT. YELLOW Normal YELLOW [facility] Comment on above: Performed By: #### U AMIC #### [facility] [address] [place] [address] Dr. Eboni Simth Crystals LM Nom (Urine sed) NONE SEEN Normal NONE SEEN [facility] Comment on above: Performed By: #### U AMIC #### [facility] [address] [place] [address] Dr. Eboni Smith Epithelial cells LM Ql (Urine sed) FEW Abnormal NONE SEEN /RARE [facility] Comment on above: Performed By: #### U AMIC #### [facility] [address] [place] [address] Dr. Eboni Smith Glucose Ql (U) Negative Normal NEGATIVE [facility] Comment on above: Performed By: #### U AMIC #### [facility] [address] [place] [address] Dr. Eboni Smith Hemoglobin Ql (U) SMALL Abnormal NEGATIVE [facility] Comment on above: Performed By: #### U AMIC #### [facility] [address] [address] [address] Eboni Smith Ketones Ql (U) Negative Normal NEGATIVE [facility] Comment on above: Performed By: #### U AMIC #### [facility] [address] [place] [address] Dr. Eboni Smith LEUKOCYTES TRACE Abnormal NEGATIVE [facility] Comment on above: Performed By: #### U AMIC #### [facility] [address] [address] [address] Eboni Smith MUCOUS NONE SEEN Normal NONE SEEN [facility] Comment on above: Performed By: #### U AMIC #### [facility] [address] [address] [address] Eboni Smith Nitrite Ql (U) Negative Normal NEGATIVE [facility] Comment on above: Performed By: #### U AMIC #### [facility] [address] [place] [address] Dr. Eboni Smith pH (U) 6.0 [pH] Normal 5-9 [facility] Comment on above: Performed By: #### U AMIC #### [facility] [address] [place] [address] Dr. Eboni Smith RBC 2-5 Abnormal 0-2 [facility] Comment on above: Performed By: #### U AMIC #### [facility] [address] [place] [address] Dr. Eboni Smith SPEC GRAVITY 1.010 Normal 1.005-<=1.02 5 [facility] Comment on above: Performed By: #### U AMIC #### [facility] [address] [place] [address] Dr. Eboni Smith UA PROTEIN Negative Normal NEGATIVE/ TRACE [facility] Comment on above: Performed By: #### U AMIC #### [facility] [address] [address] [address] Eboni Smith Urobilinogen Qn (U) 0.2 {Lora'U}/dL Normal 0.2 - 1. 0 [facility] Comment on above: Performed By: #### U AMIC #### [facility] [address] [place] [address] Dr. Eboni Smith WBC 2-5 Abnormal NONE SEEN [facility] Comment on above: Performed By: #### U AMIC #### [facility] [address] [place] [address] Dr. Eboni Smith C3 and C4 COMPLEMENTon 03-01 Complement C3, Serum 110 mg/dL Normal 82-167 [facility] Comment on above: Performed By: #### C SUITE #### [facility] [address] [place] [address] Dr. Eboni Smith Complement C4, Serum 22 mg/dL Normal 12-38 [facility] Comment on above: Performed By: #### C SUITE #### [facility] [address] [place] [address] Dr. Eboni Smith COMPLEMENT TOTAL (CH50)on Complement, Total (CH50) >60 Normal >41 [facility] Comment on above: Result Comment: Age Male Female 1 - 30 days Not Estab. Not Estab. 31 days - 6 months >32 >20 7 months - 17 years >39 >39 >17 years >41 >41 NOTE: The adult ( >17 years ) reference interval range is used to flag abnormals on this report. If the patient is 17 years old or younger, use the table above to determine out of range values. Performed By: #### C BC #### [facility] [address] [place] [address] Dr. Eboni Smith CBC AUTO DIFFon 02-28-2022 BASO # 0.0 103/ul Normal 0.0-0.1 [facility] Comment on above: Performed By: #### C SUITE #### [facility] [address] [place] [address] Dr. Eboni Smith Basophils/100 WBC (Bld) 0.2 % Normal 0.2-2.0 [facility] Comment on above: Performed By: #### C SUITE #### [facility] [address] [place] [address] Dr. Eboni Smith EO # 0.1 103/ul Normal 0.0-0.7 [facility] Comment on above: Performed By: #### C SUITE #### [facility] [address] [place] [address] Dr. Eboni Smith Eosinophils/100 WBC (Bld) 1.5 % Normal 0.9-7.0 [facility] Comment on above: Performed By: #### C SUITE #### [facility] [address] [place] [address] Dr. Eboni Smith Erythrocyte distribution width (RBC) [Ratio] 14.6 % Normal 11.0-15.0 [facility] Comment on above: Performed By: #### C SUITE #### [facility] [address] [place] [address] Dr. Eboni Smith Hematocrit (Bld) [Volume fraction] 38.9 % Normal 36.0-48.0 [facility] Comment on above: Performed By: #### C SUITE #### [facility] [address] [place] [address] Dr. Eboni Smith Hemoglobin (Bld) [Mass/Vol] 12.4 g/dL Normal 12.0-16.0 [facility] Comment on above: Performed By: #### C SUITE #### [facility] [address] [place] [address] Dr. Eboni Smith IG # 0.02 10e3/ul Normal 0.00-0.03 [facility] Comment on above: Performed By: #### C SUITE #### [facility] [address] [place] [address] Dr. Eboni Smith IG % 0.2 % Normal 0.0-0.5 [facility] Comment on above: Performed By: #### C SUITE #### [facility] [address] [place] [address] Dr. Eboni Smith LYMPH # 2.3 103/ul Normal 1.2-3.8 [facility] Comment on above: Performed By: #### C SUITE #### [facility] [address] [place] [address] Dr. Eboni Smith Lymphocytes/100 WBC (Bld) 27.7 % Normal 20.5-60.0 [facility] Comment on above: Performed By: #### C SUITE #### [facility] [address] [place] [address] Dr. Eboni Smith MANUAL DIFF REQ NO Normal [facility] Comment on above: Performed By: #### C SUITE #### [facility] [address] [place] [address] Dr. Eboni Smith MCH (RBC) [Entitic mass] 29.1 pg Normal 26.7-34.0 [facility] Comment on above: Performed By: #### C SUITE #### [facility] [address] [place] [address] Dr. Eboni Smith MCHC (RBC) [Mass/Vol] 31.9 g/dL Normal 29.9-35.2 [facility] Comment on above: Performed By: #### C SUITE #### [facility] [address] [place] [address] Dr. Eboni Smith MCV (RBC) [Entitic vol] 91.3 fL Normal 81.0-99.0 [facility] Comment on above: Performed By: #### C SUITE #### [facility] [address] [place] [address] Dr. Eboni Smith MONO # 0.6 103/ul Normal 0.3-0.8 [facility] Comment on above: Performed By: #### C SUITE #### [facility] [address] [place] [address] Dr. Eboni Smith Monocytes/100 WBC (Bld) 6.7 % Normal 1.7-12.0 [facility] Comment on above: Performed By: #### C SUITE #### [facility] [address] [place] [address] Dr. Eboni Smith NEUT # 5.3 103/ul Normal 1.4-6.5 [facility] Comment on above: Performed By: #### C SUITE #### [facility] [address] [place] [address] Dr. Eboni Smith Neutrophils/100 WBC (Bld) 63.7 % Normal 43.0-75.0 [facility] Comment on above: Performed By: #### C SUITE #### [facility] [address] [place] [address] Dr. Eboni Smith Platelet mean volume (Bld) [Entitic vol] 8.3 fL Critically low 9.5-13.5 [facility] Comment on above: Performed By: #### C SUITE #### [facility] [address] [place] [address] Dr. Eboni Smith PLT 185 103/ul Normal 150-450 [facility] Comment on above: Performed By: #### C SUITE #### [facility] [address] [place] [address] Dr. Eboni Smith RBC 4.26 106/ul Normal 4.20-5.40 [facility] Comment on above: Performed By: #### C SUITE #### [facility] [address] [place] [address] Dr. Eboni Smith WBC 8.2 103/ul Normal 4.0-11.0 [facility] Comment on above: Performed By: #### C SUITE #### [facility] [address] [place] [address] Dr. Eboni Smith PROF 14(COMP METB)on 022 Albumin [Mass/Vol] 3.5 g/dL Normal 3.4-5.0 [facility] Comment on above: Performed By: #### C SUITE #### [facility] [address] [place] [address] Dr. Eboni Smith Albumin/Globulin [Mass ratio] 1.0 {ratio} Normal [facility] Comment on above: Performed By: #### C SUITE #### [facility] [address] [place] [address] Dr. Eboni Smith ALP [Catalytic activity/Vol] 70 U/L Normal 46-116 [facility] Comment on above: Performed By: #### C SUITE #### [facility] [address] [place] [address] Dr. Eboni Smith ALT [Catalytic activity/Vol] 23 U/L Normal 14-59 [facility] Comment on above: Performed By: #### C SUITE #### [facility] [address] [place] [address] Dr. Eboni Smith Anion gap [Moles/Vol] 12.1 mmol/L Normal [facility] Comment on above: Performed By: #### C SUITE #### [facility] [address] [place] [address] Dr. Eboni Smith AST [Catalytic activity/Vol] 10 U/L Critically low 15-37 [facility] Comment on above: Performed By: #### C SUITE #### [facility] [address] [place] [address] Dr. Eboni Smith Bilirubin [Mass/Vol] 0.3 mg/dL Normal 0.2-1.0 [facility] Comment on above: Performed By: #### C SUITE #### [facility] [address] [place] [address] Dr. Eboni Smith Calcium [Mass/Vol] 8.9 mg/dL Normal 8.5-10.1 [facility] Comment on above: Performed By: #### C SUITE #### [facility] [address] [place] [address] Dr. Eboni Smith Chloride [Moles/Vol] 104 mmol/L Normal 98-107 [facility] Comment on above: Performed By: #### C SUITE #### [facility] [address] [place] [address] Dr. Eboni Smith CO2 [Moles/Vol] 27.5 mmol/L Normal 21.0-32.0 [facility] Comment on above: Performed By: #### C SUITE #### [facility] [address] [place] [address] Dr. Eboni Smith Creatinine [Mass/Vol] 0.88 mg/dL Normal 0.55-1.02 [facility] Comment on above: Performed By: #### C SUITE #### [facility] [address] [place] [address] Dr. Eboni Smith EGFR-AF MALIAN >60 Normal >=60 [facility] Comment on above: Performed By: #### C SUITE #### [facility] [address] [place] [address] Dr. Eboni Smith EGFR-NON AF MALIAN >60 Normal >=60 [facility] Comment on above: Performed By: #### C SUITE #### [facility] [address] [place] [address] Dr. Eboni Smith Globulin (S) [Mass/Vol] 3.4 g/dL Normal [facility] Comment on above: Performed By: #### C SUITE #### [facility] [address] [address] [address] Eboni Smith Glucose [Mass/Vol] 105 mg/dL Normal 74-106 [facility] Comment on above: Performed By: #### C SUITE #### [facility] [address] [address] [address] Eboni Smith Potassium [Moles/Vol] 4.3 mmol/L Normal 3.5-5.1 [facility] Comment on above: Performed By: #### C SUITE #### [facility] [address] [address] [address] Eboni Smith Protein [Mass/Vol] 6.9 g/dL Normal 6.4-8.2 [facility] Comment on above: Performed By: #### C SUITE #### [facility] [address] [place] [address] Dr. Eboni Smith Sodium [Moles/Vol] 139 mmol/L Normal 136-145 [facility] Comment on above: Performed By: #### C SUITE #### [facility] [address] [address] [address] Eboni Smith Urea nitrogen [Mass/Vol] 26.0 mg/dL Critically high 7.0-18.0 [facility] Comment on above: Performed By: #### C SUITE #### [facility] [address] [place] [address] Dr. Eboni Smith Urea nitrogen/Creatinine [Mass ratio] 29.5 mg/mg Normal [facility] Comment on above: Performed By: #### C SUITE #### [facility] [address] [address] [address] Eboni Smith [facility] 8 mm/hr Normal <=30 [facility] Comment on above: Performed By: #### C BC #### [facility] [address] [address] [address] Eboni Smith UA RANDOM W/MICROSCOPICon BACTERIA TRACE Abnormal NONE SEEN The [facility] Comment on above: Performed By: #### C SUITE #### [facility] [address] [place] [address] Dr. Eboni Smith Bilirubin Ql (U) Negative Normal NEGATIVE [facility] Comment on above: Performed By: #### C SUITE #### [facility] [address] [place] [address] Dr. Eboni Smith CAST NONE SEEN Normal NONE SEEN The [facility] Comment on above: Performed By: #### C SUITE #### [facility] [address] [place] [address] Dr. Eboni Smith Clarity (U) SL CLOUDY Abnormal CLEAR [facility] Comment on above: Performed By: #### C SUITE #### [facility] [address] [place] [address] Dr. Eboni Smith Color (U) LT. YELLOW Normal YELLOW [facility] Comment on above: Performed By: #### C SUITE #### [facility] [address] [place] [address] Dr. Eboni Smith Crystals LM Nom (Urine sed) NONE SEEN Normal NONE SEEN The [facility] Comment on above: Performed By: #### C SUITE #### [facility] [address] [place] [address] Dr. Eboni Smith Epithelial cells LM Ql (Urine sed) RARE Normal NONE SEEN /RARE [facility] Comment on above: Performed By: #### C SUITE #### [facility] [address] [place] [address] Dr. Eboni Smith Glucose Ql (U) Negative Normal NEGATIVE [facility] Comment on above: Performed By: #### C SUITE #### [facility] [address] [place] [address] Dr. Eboni Smith Hemoglobin Ql (U) SMALL Abnormal NEGATIVE [facility] Comment on above: Performed By: #### C SUITE #### [facility] [address] [place] [address] Dr. Eboni Smith Ketones Ql (U) Negative Normal NEGATIVE [facility] Comment on above: Performed By: #### C SUITE #### [facility] [address] [place] [address] Dr. Eboni Smith LEUKOCYTES SMALL Abnormal NEGATIVE The [facility] Comment on above: Performed By: #### C SUITE #### [facility] [address] [place] [address] Dr. Eboni Smith MUCOUS NONE SEEN Normal NONE SEEN [facility] Comment on above: Performed By: #### C SUITE #### [facility] [address] [place] [address] Dr. Eboni Smith Nitrite Ql (U) Negative Normal NEGATIVE [facility] Comment on above: Performed By: #### C SUITE #### [facility] [address] [place] [address] Dr. Eboni Smith pH (U) 5.0 [pH] Normal 5-9 [facility] Comment on above: Performed By: #### C SUITE #### [facility] [address] [place] [address] Dr. Eboni Smith RBC 0-2 Normal 0-2 [facility] Comment on above: Performed By: #### C SUITE #### [facility] [address] [place] [address] Dr. Eboni Smith SPEC GRAVITY 1.025 Normal 1.005-<=1.02 5 [facility] Comment on above: Performed By: #### C SUITE #### [facility] [address] [place] [address] Dr. Eboni Smith UA PROTEIN Negative Normal NEGATIVE/ TRACE [facility] Comment on above: Performed By: #### C SUITE #### [facility] [address] [place] [address] Dr. Eboni Smith Urobilinogen Qn (U) 0.2 {Lora'U}/dL Normal 0.2 - 1. 0 [facility] Comment on above: Performed By: #### C SUITE #### [facility] [address] [place] [address] Dr. Eboni Smith WBC 2-5 Abnormal NONE SEEN [facility] Comment on above: Performed By: #### C SUITE #### [facility] [address] [place] [address] Dr. 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 Multilevel grade 1 retrolisthesis. Multilevel mild-moderate degenerative facet arthropathy. No fracture. DISC SPACES: Moderate marked narrowing L2-3 through L5-S1. Moderate narrowing L1-2. PARASPINOUS: Negative. No paraspinous abnormality is seen. OTHER: Negative. IMPRESSION: 1. Multilevel marked degenerative changes of the lumbar spine; slightly progressed. Electronically authenticated by: EULALIA MORALES Date: 2022-02-28 16:24 Normal [facility] COVID-19 Positive/Negativeon 03-15-2021 SARS-CoV-2 (COVID-19) N gene TERRIE+probe Ql (Resp) Negative Negative [facility] Comment on above: Testing for SARS-CoV -2 by RT-PCRThis test was developed and its performance characteristics determined by [employer] ([employer] and validated at the [facility]. This test has not been FDA cleared or approved. This test has been authorized by FDA under an Emergency Use Authorization (EUA). This test has been validated in accordance with the FDA's Guidance Document (Policy for Diagnostics Testing in Laboratories Certified to Perform High Complexity Testing under CLIA prior to Emergency Use Authorization for Coronavirus Disease-2019 during the Public Health Emergency) issued on January 15, 2020. This test is only authorized for the duration of time the declaration that circumstances exist justifying the authorization of the emergency use of in vitro diagnostic tests for detection of SARS-CoV-2 virus and/or diagnosis of COVID-19 infection under section 564(b)(1) of the Act, 21 U.S.C. 360bbb-3(b)(1), unless the authorization is terminated or revoked sooner. Reminderson 09-10-2019 Reminders - From: Noemi Wallace To: EU - Clinical; Sent: 08/25/2019 13:56:04 EST Show up: 09/06/2019 13:55:00 EST Subject: Ambulatory Reminder- Fish/cytology Due Date/Time: 09/09/2019 13:56:00 EST Reminder/Recall done 08/25/19 done, results negative Normal [facility] Operative Reporton 09-06-201 9 Operative Report Result type: Progres s Note-Physician Result date: September 02, 2019 14:16 EST Result status: Auth (Verified) Result title: EU Local Female Cystoscopy w/ or w/o UD - FT Performed by: David ALARCON MD on September 02, 2019 14:17 EST Verified by: David ALARCON MD on September 02, 2019 14:17 EST Encounter info: [id number], [facility], Outpatient, 09/02/2019 - 09/02/2019 * Final Report * MOVED TO CORRECT FOLDER EU Local Female Cystoscopy w/ or w/o UD - FT Patient: BASHIR COATS Age: 64 years Sex: Female : 1955 Associated Diagnoses: None Author: David ALARCON MD Procedure Operative Information Details: Date/ Time: 09/02/19 14:16:00. Pre-Op Dx: Micro Hematuria - Asymptomatic - R31.21. Post-Op Dx: Same. Anesthesia Type: Local. Procedure: Local Cystoscopy. Complications: None. Risks/Benefits/Inform ed Consent: Surgical risks, benefits, details of the procedure have been explained to the patient, Full informed consent has been obtained. Intraoperative Information Prepped: Patient is brought back to the endoscopy suite, Patient is placed in modified dorso/lithotomy position, Patient prepped in the usual fashion with Betadine solution, 2% Xylocaine Jelly is placed per Urethra, After waiting several minutes the Cystoscope is introduced. The Urethra is: Normal. The Bladder is: Trabeculated Moderate (2), no b.t. no erika, prolapse or a.v.. The ureteral orifices: Show efflux of clear urine. Devices Implanted: None. Removal: Cystoscope is removed, The patient tolerated it well. Postoperative Information Discharge: Patient is discharged home with antibiotic coverage, Follow up arranged. Signature Line Electronically Signed By: David ALARCON MD Date and Time Signed: 09/02/19 14:17 EST Normal [facility] Comment on above: Result Comment: Elec tronically Signed By: David ALARCON MD\.br\Date and Time Signed: 09/06/19 11:29 EST Progress Note-Physicianon Progress Note-Physician Patient: BASHIR COAST Age: 64 years Sex: Female : 1955 Associated Diagnoses: None Author: David ALARCON MD Procedure Operative Information Details: Date/ Time: 09/02/19 14:16:00. Pre-Op Dx: Micro Hematuria - Asymptomatic - R31.21. Post-Op Dx: Same. Anesthesia Type: Local. Procedure: Local Cystoscopy. Complications: None. Risks/Benefits/Inform ed Consent: Surgical risks, benefits, details of the procedure have been explained to the patient, Full informed consent has been obtained. Intraoperative Information Prepped: Patient is brought back to the endoscopy suite, Patient is placed in modified dorso/lithotomy position, Patient prepped in the usual fashion with Betadine solution, 2% Xylocaine Jelly is placed per Urethra, After waiting several minutes the Cystoscope is introduced. The Urethra is: Normal. The Bladder is: Trabeculated Moderate (2), no b.t. no erika, prolapse or a.v.. The ureteral orifices: Show efflux of clear urine. Devices Implanted: None. Removal: Cystoscope is removed, The patient tolerated it well. Postoperative Information Discharge: Patient is discharged home with antibiotic coverage, Follow up arranged. Normal [facility] Comment on above: Result Comment: ERRO R - WRONG FOLDER Electronically Signed By: David ALARCON MD\.br\Date and Time Signed: 09/02/19 14:17 EST Coding Summary.on 09-03-2019 Coding Summary. CODING DATE: 09/03/[address] [facility] STATUS: Home (Routine DC) PAYOR: Medicare APC DESCRIPTION 5372 Level 2 Urology and Related Services ADMIT DX: REASON FOR VISIT DX: R31.21 Asymptomatic microscopic hematuria FINAL DX: PRINCIPAL: R31.21 Asymptomatic microscopic hematuria SECONDARY: K21.9 Gastro-esophageal reflux disease without esophagitis M34.9 Systemic sclerosis, unspecified PYMT PROC APC STAT DESCRIPTION DOCTOR NAME DATE NOTE: The code number assigned matches the documented diagnosis and / or procedure in the patient's chart. However, the narrative phrase printed from the coding software may appear abbreviated, or result in slightly different terminology. Coded By: Jessica Morillo Date Saved: 09/03/2019 09:50 am Normal [facility] Main OR Intraoperative Recor don 09-02-2019 Main OR Intraoperative Record IntraOp Document Type FTURO Summary Primary Physician: David ALARCON MD Finalized Date/Time: 09/02/19 14:16:24 Pt. Name: BASHIR COATS.O.B./Sex: 1955 Female Med Rec #: [id number] Physician: David ALARCON MD Financial #: [id number] Pt. Type: O Room/Bed: / Admit/Disch: 09/02/19 12:39:57 - Institution: Case Times FTURO Entry 1 Patient Times In Room 09/02/19 14:07:00 Out Room 09/02/19 14:17:00 Procedure Times Start 09/02/19 14:11:00 Stop 09/02/19 14:14:00 Anesthesia Times Last Modified By: Jose De Jesus MORRISSEY, RN, Hilda 09/02/19 14:14:48 Case Attendance FTURO Entry 1 Entry 2 Entry 3 Case Attendee David ALARCON MDN, RN, Yarely VELARDE, Noemi Stevens Role Performed Surgeon - Primary Research & Insights Executive - Primary Scrub - Primary Time In 09/02/19 14:07:00 09/02/19 14:07:00 09/02/19 14:07:00 Time Out 09/02/19 14:17:00 09/02/19 14:17:00 09/02/19 14:17:00 Procedure CYSTOSCOPY LOCAL(.) CYSTOSCOPY LOCAL(.) CYSTOSCOPY LOCAL(.) Comments Last Modified By: Jose De Jesus MORRISSEY, RN, Jose De Jesus MORRISSEY, RN, Jose De Jesus MORRISSEY, RN, Hilda 09/02/19 14:15:27 Hilda 09/02/19 14:15:27 Hilda 09/02/19 14:15:27 Surgical Procedures FTURO Entry 1 Procedure Description Procedure CYSTOSCOPY LOCAL Modifiers . Surgeon Description CYSTOSCOPY LOCAL Primary Procedure Yes Primary Surgeon David ALARCON MD Start 09/02/19 14:11:00 Stop 09/02/19 14:14:00 Anesthesia Type Local Surgical Service Urology Wound Class 2 - Clean-Contaminated Last Modified By: Jose De Jesus MORRISSEY RN, Kelly 09/02/19 14:15:30 General Case Data FTURO Pre-Care Text: Classifies surgical wound, implements aseptic technique, initiates traffic control Entry 1 Case Information OR URO 1 FT Case Level None Wound Class 2 - Clean-Contaminated Specialty Urology Preop Diagnosis HEMATURIA Postop Same As Preop No Postop Diagnosis HEMATURIA/normal exam Outcomes Met? Yes Last Modified By: Jose De Jesus MORRISSEY RN, Kelly 09/02/19 14:15:40 Post-Care Text: The patient is free from signs and symptoms of infection EU IntraOp - FTURO Pre-Care Text: Implements protective measures prior to operative or invasive procedure, confirms identity before the operative or invasive procedure, verifies operative procedure, surgical site, and laterality Entry 1 EU Perioperative Protocols Procedure(s) CYSTOSCOPY LOCAL(.) Patient Identity Birthday, ID Band Verified (select at Check, Patient least 2): Participation Consents / H and P HandP, Surgery/Procedure Operative Site N/A Verified Consent Marking Verified Surgical Site Yes Laterality Verified n/a Verified Procedure Verified Yes Correct Patient Yes Position Verified Availability Equipment, Medication Time Out AGNES KEEN, David Robert, Verified (If Participants Jose De Jesus MORRISSEY RN, Applicable) Yarely Stevens [employer] PRESS OPERATOR, Noemi Time Out Complete 09/02/19 14:11:00 Allergies Reviewed? Yes Allergies Reviewed Self/Patient With Body Position Frog Legged Prep Area perinium Prep Agents Betadine Solution Skin. Condition Unable to Visualize Additional None Specimens Collected Vitals - EU Blood Pressure 153/78 Pulse 68 bpm Respirations 18 br/min SPO2 92 % EBL 0 IandO - EU Total Intake 0 mL Total Output 0 mL Outcomes Met? Yes Last Modified By: Jose De Jesus MORRISSEY RN, Kelly 09/02/19 14:14:38 Post-Care Text: The patient is free from signs and symptoms of injury caused by extraneous objects Case Comments Finalized By: Jose De Jesus MORRISSEY RN, Kelly Document Signatures Signed By: Jose De Jesus MORRISSEY RN, Kelly 09/02/19 14:15 Jose De Jesus MORRISSEY RN, Kelly 09/02/19 14:16 Jose De Jesus MORRISSEY RN, Kelly 09/02/19 14:16 [facility] Main OR Preoperative Recordo n 09-02-2019 Main OR Preoperative Record Holding Area Document Type FTURO Summary Primary Physician: David ALARCON MD Finalized Date/Time: 09/02/19 14:09:52 Pt. Name: BASHIR COATS Dustin Hines/Sex: 1955 Female Med Rec #: [id number] Physician: David ALARCON MD Financial #: [id number] Pt. Type: O Room/Bed: / Admit/Disch: 09/02/19 12:39:57 - Institution: Case Times Holding FTURO Pre-Care Text: Verifies consent for planned procedure, identifies individual values and wishes concerning care, includes family members in perioperative teaching Secures patient's records' belongings, and valuables, maintains patient's dignity and privacy, and maintains patient confidentiality Entry 1 In Holding 09/02/19 13:17:00 Outcomes Met? Yes Last Modified By: Kylah Rothman LPN 09/02/19 13:17:15 Post-Care Text: The patient participates in decisions affecting his or her perioperative plan of care The patient's right to privacy is maintained Surgery Checklist FTURO Entry 1 Patient Birthday, ID Band Procedure History and Physical, Identification: Check, Patient Verification: Surgical Consent, With Participation Patient NPO after Midnight: n/a Personal Items: Glasses, Jewelry Personal Items earrings, watch, ring Complaints of Pain: No Comment: Skin Integrity Unable to Visualize Vitals - EU Blood Pressure 133/79 Pulse 73 bpm Respirations 18 br/min SPO2 RN Reviewed Yes Last Modified By: Jose De Jesus MORRISSEY RN, Kelly 09/02/19 14:09:46 Finalized By: Jose De Jesus MORRISSEY RN, Kelly Document Signatures Signed By: Kylah Rothman LPN 09/02/19 13:19 Jose De Jesus MORRISSEY RN, Kelly 09/02/19 14:09 Jose De Jesus MORRISSEY RN, Kelly 09/02/19 14:09 Normal [facility] MRI LUMBAR SPINE WO CONTRAST on 08-07-2018 [facility] [address] [place] [address] Patient Name: BASHIR COATS : 1955Sex: FAge: Race: WhiteMRN: [id number]. Location: 84Patient Status: DVisit #: [id number] Date: 07/10/2018 12:35:00 PMCompleted Date: 08/07/2018 02:49 PMRequesting Provider: GARETH REYES Attending Provider: Report Copy To: Signs & Symptoms: M54.5 Low back pain G65Hpgruad: NIKKO Hester FB per [facility] auth # [id number] 07/29/18-09/27/18 [id number] *erComments: , , , Ordering Provider - GARETH REYES MD , Exam: MRI LUMBAR SPINE WO CONTRASTAccession #: [id number] MRI LUMBAR SPINE WO CONTRAST 08/07/2018 2:49 PM EDT SIGNS AND SYMPTOMS: M54.5 Low back pain I10 TECHNOLOGIST COMMENTS: patient complains of chronic lower back pain and numbness/tingling with numbness/tingling in her left foot. h/o DDD QUESTION FOR THE RADIOLOGIST: , , , Ordering Provider - GARETH REYES MD , PROTOCOL: The following pulse sequences were utilized when imaging the lumbar spine: sagittal T2, sagittal T1, sagittal STIR, and axial T2. COMPARISON: None. FINDINGS: The bones of the lumbar spine demonstrates mild levoconvex scoliosis. There is preservation of vertebral body heights and intervertebral disc spaces revealed disc desiccation and loss of height at all levels. The marrow signals within normal limits with hemangioma seen at L3, L1 and Modic type I discogenic change seen at L3-4 as well as Modic type II discogenic changes at L5-S1 level. Bony spurring anteriorly at multiple levels. There is mild retrolisthesis of L2 on L3 and L3 on L4 secondary to facet joint disease. The conus terminates at the L1 level. No epidural or paraspinous fluid collection is appreciated. At T12-L1: There is a normal disc, central canal, and neural foramen. At L1-L2: There is a normal disc, central canal, and neural foramen. At L2-L3: Broad-based spondylotic disc bulge effacing the thecal sac and associated with bilateral facet joint effusion and mild ligamentum flavum hypertrophy leading to mild acquired canal stenosis and bilateral neural foramen narrowing. At L3-L4: Broad-based central spondylotic disc bulge effacing the thecal sac and associated with bilateral facet joint and ligamentum flavum hypertrophy leading to mild acquired canal stenosis and moderate bilateral neural foramen narrowing. At L4-L5: Spondylotic disc bulge with eccentric disc protrusion to the left side extending from the central zone to the left foraminal zone with associated moderate to severe left and neural foramen narrowing. There is associated mild facet joint and ligamentum flavum hypertrophy. At L5-S1: There is a normal disc, central canal, and neural foramen. Bilateral mild facet joint effusion. Incidental bilateral extrarenal pelvis. IMPRESSION: Mild levoconvex lumbar scoliosis and severe multilevel lumbar spondylosis as described above. Electronically signed by:Parul Whitfield. Transcribed by: [email or web address], User Resident: Electronically Signed by: PARUL WHITFIELD @ 08/08/2018 02:33 PM Normal [facility] Comment on above: Order Comment: , , = ========= , Ordering Provider - GARETH REYES MD , Operative Reporton 8 Operative Report MR#: [id number] [facility] Pt. Name: Bashir Coats Room #: 0C Discharge Date: Birthdate: 1955 OPERATIVE REPORTDATE OF SURGERY: 10/17/2018SURGEON: Pavel Leon M.D.PREOPERATIVE DIAGNOSIS: Soft tissue calcifications, right small fingertip.POSTOPERATI VE DIAGNOSIS: Soft tissue calcifications, right small fingertip.PROCEDURE: Excision of calcific lesions, right small finger tip.CORN GRINDER: Christopher Gay M.D.ANESTHESIA: Local 1% plain lidocaine.INDICATION FOR SURGERY: The patient is a 63-year-old female who has ascleroderma. She has a painful lesion on the finger tip of her right smalldigit. She says that she was able to get a couple calcifications out ofthe finger tip. It is still very tender and she has a wound that will notheal. After discussing options, we felt she was a candidate for surgicalexcision of the calcific lesions. She is brought to the operating roomtoday for that purpose. The risks and benefits are explained prior tosurgery and with good understanding it is agreed to proceed.NARRATION: The patient was brought to the operating room and placed on thetable in a supine position. The right arm was placed out on a hand tableand then prepped and draped out in a sterile fashion. To begin theprocedure, after standard time-out, a digital block with 1% plain lidocainewas administered. We let this set up for several minutes. A fingertourniquet was then placed on the finger. She has a wound near the tip ofthe finger that is about 2-3 mm wide a mm long. I claudia an ellipticalincision around that, so the tract could be completely excised. With a#15-blade, we did that and excised the wound completely. I took a smallcurette and just curetted around the soft tissue. There were somecalcifications in fact that we were able to remove from the subcutaneoustissue. Once I had all the calcification removed, the wound was irrigatedwith normal saline solution. The finger tourniquet was cut and removed.The skin was closed with a couple of simple interrupted 5-0 Novafilsutures. A sterile dressing of Xeroform gauze, 4x4, and 1-inch Sammi wasapplied to the digit. That was secured with tape. The drapes wereremoved. She was brought to the recovery area in stable condition.[employer] dhruvy Signed by:Pavel Leon M.D. 08/01/2018 09:47 A Stephanie Leon M.D.Date Dict: 07/31/2018/11:05 Jarred Leon M.D.Date Trans: 07/31/2018 12:55 P/[id number]: Gee Merchant D.O. [address] [facility] [address] [facility] Vital Signs Date Time Vital Sign Value Performing Clinician Facility 06-09-2024 14:040 Body height 152.4 cm DO Steve Ball Work Phone: [facility] 06-09-2024 14:040 Body mass index (BMI) [Ratio] 34.2 kg/m2 DO Steve Ball Work Phone: [facility] 06-09-2024 14:040 Body weight 79.37 kg DO Steve Ball Work Phone: [facility] 02-06-2024 12:050400 Body height 152.4 cm DO Steve Ball Work Phone: [facility] 02-06-2024 12:05-0400 Body mass index (BMI) [Ratio] 34.2 kg/m2 DO Steve Ball Work Phone: [facility] 02-06-2024 12:05-0400 Body temperature 98 [degF] DO Steve Ball Work Phone: [facility] 02-06-2024 12:05-0400 Body weight 79.37 kg DO Steve Ball Work Phone: [facility] 02-06-2024 12:05-0400 Diastolic blood pressure 70 mm[Hg] DO Steve Ball Work Phone: [facility] 02-06-2024 12:05-0400 Heart rate 76 /min DO Steve Ball Work Phone: [facility] 02-06-2024 12:05-0400 Respiratory rate 16 /min DO Steve Ball Work Phone: [facility] 02-06-2024 12:05-0400 SaO2% (BldA) [Mass fraction] 97 % DO Steve Ball Work Phone: [facility] 02-06-2024 12:05-0400 Systolic blood pressure 138 mm[Hg] DO Steve Ball Work Phone: [facility] 12-26-2023 12:07-0400 Body height 152.4 cm DO Steve Ball Work Phone: [facility] 12-26-2023 12:07-0400 Body mass index (BMI) [Ratio] 34.2 kg/m2 DO Steve Ball Work Phone: [facility] 12-26-2023 12:07-0400 Body temperature 97.8 [degF] DO Steve Ball Work Phone: [facility] 12-26-2023 12:07-0400 Body weight 79.37 kg DO Steve Ball Work Phone: [facility] 12-26-2023 12:07-0400 Diastolic blood pressure 64 mm[Hg] DO Steve Ball Work Phone: [facility] 12-26-2023 12:07-0400 Heart rate 84 /min DO Steve Ball Work Phone: [facility] 12-26-2023 12:07-0400 Respiratory rate 16 /min DO Steve Ball Work Phone: [facility] 12-26-2023 12:07-0400 SaO2% (BldA) [Mass fraction] 98 % DO Steve Ball Work Phone: [facility] 12-26-2023 12:07-0400 Systolic blood pressure 116 mm[Hg] DO Steve Ball Work Phone: [facility] 10-25-2023 13:45-0500 Body height 154.94 cm Alex Neely Other [facility] 10-25-2023 13:45-0500 Body mass index (BMI) [Ratio] 34.38 kg/m2 Alex Neely Other [facility] [employer] Other 10-25-2023 13:45-0500 Body weight 82.56 kg Alex Neely Other [email or web address] Other 10-25-2023 13:45-0500 Body weight 82.55 kg DO Steve Ball Work Phone: [facility] 10-09-2023 15:00-0500 Body height 154.94 cm Steve Ball Other [facility] Other 10-09-2023 15:00-0500 Body mass index (BMI) [Ratio] 34.38 kg/m2 Steve Ball Other [facility] Other 10-09-2023 15:00-0500 Body weight 82.56 kg Steve Ball Other [facility] Other 10-09-2023 15:00-0500 Diastolic blood pressure 81 mm[Hg] Steve Ball Other [facility] Other 10-09-2023 15:00-0500 Respiratory rate 12 /min Steve Ball Other [facility] Other 10-09-2023 15:00-0500 Systolic blood pressure 130 mm[Hg] Steve Ball Other [facility] Other 06-07-2023 12:45-0400 Body height 154.94 cm Chiara Damon Other [facility] Other 06-07-2023 12:45-0400 Body mass index (BMI) [Ratio] 34.27 kg/m2 Chiara Marisol Other [employer] Other 06-07-2023 12:45-0400 Body temperature 98.9 [degF] Chiara Marisol Other [facility] Other 06-07-2023 12:45-0400 Body weight 82.28 kg Chiara Marisol Other [facility] Other 06-07-2023 12:45-0400 Diastolic blood pressure 75 mm[Hg] Chiara Marisol Other [facility] Other 06-07-2023 12:45-0400 Respiratory rate 18 /min Chiara Marisol Other [facility] Other 06-07-2023 12:45-0400 SaO2% (BldA) [Mass fraction] 98 % Chiara Marisol Other [facility] Other 06-07-2023 12:45-0400 Systolic blood pressure 155 mm[Hg] Chiara Marisol Other [facility] Other 01-29-2023 15:50-0400 Body height 154.94 cm Chiara Marisol Other [facility] Other 01-29-2023 15:50-0400 Body mass index (BMI) [Ratio] 34.01 kg/m2 Chiara Marisol Other [facility] Other 01-29-2023 15:50-0400 Body temperature 98 [degF] Chiara Marisol Other [facility] Other 01-29-2023 15:50-0400 Body weight 81.65 kg Chiara Marisol Other [facility] Other 01-29-2023 15:50-0400 Diastolic blood pressure 81 mm[Hg] Chiara Marisol Other [facility] Other 01-29-2023 15:50-0400 Respiratory rate 18 /min Chiara Marisol Other [facility] Other 01-29-2023 15:50-0400 SaO2% (BldA) [Mass fraction] 93 % Chiara Marisol Other [facility] Other 01-29-2023 15:50-0400 Systolic blood pressure 153 mm[Hg] Chiara Marisol Other [facility] Other 12-16-2022 13:55-0500 Body height 154.94 cm Chiara Marisol Other [facility] Other 12-16-2022 13:55-0500 Body mass index (BMI) [Ratio] 34.84 kg/m2 Chiara Marisol Other [facility] Other 12-16-2022 13:55-0500 Body temperature 98.8 [degF] Chiara Marisol Other [facility] Other 12-16-2022 13:55-0500 Body weight 83.64 kg Chiara Marisol Other [facility] Other 12-16-2022 13:55-0500 Diastolic blood pressure 69 mm[Hg] Chiara Marisol Other [facility] Other 12-16-2022 13:55-0500 Respiratory rate 18 /min Chiara Marisol Other [facility] [employer] Other 12-16-2022 13:55-0500 Systolic blood pressure 140 mm[Hg] Chiara Damon Other [facility] [employer] Other 12-06-2022 13:36-0500 Diastolic blood pressure 66 mm[Hg] DO Steve Ball Work Phone: [facility] 12-06-2022 13:36-0500 Heart rate 77 /min DO Steve Ball Work Phone: [facility] 12-06-2022 13:36-0500 Respiratory rate 16 /min DO Steve Ball Work Phone: [facility] 12-06-2022 13:36-0500 SaO2% (BldA) [Mass fraction] 98 % DO Steve Ball Work Phone: [facility] 12-06-2022 13:36-0500 Systolic blood pressure 118 mm[Hg] DO Steve Ball Work Phone: [facility] 12-06-2022 12:07-0500 Body height 152.4 cm DO Steve Ball Work Phone: [facility] 12-06-2022 12:07-0500 Body temperature 98.7 [degF] DO Steve Ball Work Phone: [facility] 12-06-2022 12:07-0500 Body weight 80.73 kg DO Steve Ball Work Phone: [facility] 09-20-2022 14:32-0500 Diastolic blood pressure 80 mm[Hg] DO Steve Ball Work Phone: [facility] 09-20-2022 14:32-0500 Heart rate 72 /min DO Steve Ball Work Phone: [facility] 09-20-2022 14:32-0500 Respiratory rate 16 /min DO Steve Ball Work Phone: [facility] 09-20-2022 14:32-0500 SaO2% (BldA) [Mass fraction] 98 % DO Steve Ball Work Phone: [facility] 09-20-2022 14:32-0500 Systolic blood pressure 140 mm[Hg] DO Steve Ball Work Phone: [facility] 09-20-2022 14:02-0500 Inhaled oxygen flow rate 6 L/min DO Steve Ball Work Phone: [facility] 09-20-2022 12:20-0500 Body height 149.86 cm DO Steve Ball Work Phone: [facility] 09-20-2022 12:20-0500 Body temperature 99.2 [degF] DO Steve Ball Work Phone: [facility] 09-20-2022 12:20-0500 Body weight 79.83 kg DO Steve Ball Work Phone: [facility] Encounters Encounter Date Encounter Type Care Provider Facility Start: 06-09-2024 End: 06-09-2024 ambulatory DO Steve Ball Work Phone: [facility] Work Phone: Start: 06-09-2024 End: 06-09-2024 Patient encounter procedure DO Steve Ball Work Phone: [facility] G[facility]enter[facility] Work Phone: Start: 06-05-2024 End: 06-05-2024 Patient encounter procedure DO Steve Ball Work Phone: [facility] Work Phone: Start: 06-05-2024 End: 06-05-2024 ambulatory DO Steve Ball Work Phone: [facility] Work Phone: Start: 05-29-2024 End: 05-29-2024 ambulatory BERTIN CORRAL Not Available Start: 05-27-2024 End: 05-27-2024 ambulatory [facility] Work Phone: Start: 05-27-2024 End: 05-27-2024 Patient encounter procedure [facility] Work Phone: Start: 05-15-2024 End: 05-15-2024 ambulatory BERTIN BROWNE Not Available Start: 03-18-2024 End: 03-18-2024 ambulatory BERTIN BROWNE Not Available Start: 02-26-2024 End: 02-26-2024 ambulatory BERTIN Geoff BROWNE Not Available Start: 02-06-2024 End: 02-06-2024 ambulatory DO Steve Ball Work Phone: [facility] Work Phone: Start: 02-06-2024 End: 02-06-2024 Patient encounter procedure DO Steve Ball Work Phone: [facility] Vascular Surgery Work Phone: Start: 01-22-2024 End: 01-22-2024 ambulatory BERTIN BROWNE Not Available Start: 01-14-2024 End: 01-14-2024 Patient encounter procedure DO Steve Ball Work Phone: [facility] [place] Work Phone: Start: 01-14-2024 End: 01-14-2024 ambulatory DO Steve Ball Work Phone: [facility] Work Phone: Start: 12-27-2023 End: 12-27-2023 ambulatory BERTIN BROWNE Not Available Start: 12-26-2023 End: 12-26-2023 Patient encounter procedure DO Steve Ball Work Phone: [facility] V[facility] Work Phone: Start: 12-25-2023 Non-patient / Non-visit DO Steve Ball [facility] Work Phone: Start: 12-04-2023 End: 12-04-2023 ambulatory BERTIN BROWNE Not Available Start: 10-25-2023 End: 10-25-2023 ambulatory Alex Rohith Other [facility] Other Start: 10-25-2023 Office outpatient visit 15 minutes Alex Rohith [facility] Start: 10-25-2023 End: 10-25-2023 Patient encounter procedure DO Steve Armendariz Work Phone: [facility] Work Phone: Start: 10-09-2023 End: 10-09-2023 ambulatory Steve Armendariz Other [facility] Other Start: 10-09-2023 Office outpatient visit 25 minutes Steve Armendariz [facility] Start: 10-09-2023 Telephone encounter Steve Armendariz [facility] Start: 06-07-2023 Office outpatient visit 15 minutes Chiara Damon [facility] Start: 06-07-2023 End: 06-07-2023 ambulatory DO Steve Armendariz Work Phone: [facility] Work Phone: Start: 06-07-2023 End: 06-07-2023 Patient encounter procedure DO Steve Armendariz Work Phone: [facility] Work Phone: Start: 02-08-2023 End: 02-09-[address] DOCTOR BROWN Facility: Start: 01-29-2023 End: 01-29-2023 ambulatory Chiara Damon Other [facility] [employer] Other Start: 01-29-2023 Office outpatient visit 15 minutes Chiara Damon [facility] Start: 12-16-2022 End: 12-16-2022 Patient encounter procedure DO Steve Armendariz Work Phone: [facility] Work Phone: Start: 12-16-2022 End: 03-04-2023 ambulatory DO Steve Ball Work Phone: [facility] Work Phone: Start: 12-16-2022 Office outpatient visit 15 minutes Chiara Damon [facility] Start: 12-06-2022 Telephone encounter [facility] Start: 12-06-2022 End: 12-06-2022 Admission to same day surgery center DO Steve Armendariz Work Phone: [facility] Work Phone: Start: 12-06-2022 End: 12-06-2022 ambulatory DO Steve Marcello Work Phone: [facility] Work Phone: Start: 09-28-2022 End: 09-29-[address] DOCTOR BROWN Facility:[facility] Start: 09-20-2022 End: 09-20-2022 Admission to same day surgery center DO Steve Marcello Work Phone: [facility] Work Phone: Start: 09-18-2022 End: 09-19-[address] ANGELIC VICK Facility:[facility] Start: 09-18-2022 End: 09-18-2022 ambulatory DO Steve Marcello Work Phone: [facility] Work Phone: Start: 09-18-2022 End: 09-18-2022 Patient encounter procedure DO Steve Marcello Work Phone: [facility] Start: 07-26-2022 End: 08-25-[address] STEVE ARMENDARIZ Facility:[facility] Start: 06-09-2022 End: 06-10-[address] DOCTOR BROWN Facility:[facility] Start: 04-24-2022 End: 05-19-[address] STEVE ARMENDARIZ Facility:[facility] Start: 04-20-2022 Adult health examination Chiara Damon Other [facility] Other Start: 03-10-2022 End: 03-11-[address] STEVE ARMENDARIZ Facility:[facility] Start: 02-28-2022 End: 03-01-[address] STEVE ARMENDARIZ Facility:[facility] Start: 03-15-2021 End: 03-15-2021 Patient encounter procedure Pedro Ruiz Work Phone: -Pre-Surgical Testing Start: 08-07-2018 End: 08-08-2018 Patient encounter procedure GARETH REYES Facility:[facility] Start: 07-31-2018 End: 08-01-2018 Patient encounter procedure PAVEL LEON Facility:[facility] Procedures Date Procedure Procedure Detail Performing Clinician Start: 01-14-2024 Duplex scan of lower limb veins DO Johnathan min Ball Work Phone: Start: 06-07-2023 X-ray of left ankle DO Steve Ball Work Phone: Start: 12-16-2022 Plain X-ray of right elbow DO Steve B all Work Phone: Start: 12-16-2022 Plain X-ray of right shoulder DO Bradami n Ball Work Phone: Start: 12-06-2022 Esophagogastroduodenoscopy DO Steve B all Work Phone: Start: 09-20-2022 Esophagogastroduodenoscopy DO Steve B all Work Phone: Start: 09-18-2022 SARS Antigen (LFIA) DO Steve Armendariz Work Phone: Start: 07-31-2018 EXC [id number] B9+LINCOLN 0.5/< PAVEL LEON Start: 04-12-2015 General examination of patient Chiara ritter Other Depression screening Chiara Damon Other Screening for malign ant neoplasm of breast Chiara Damon Other Screening for malign ant neoplasm of colon Steve Marcello Other Plan of Treatment Date Care Activity Detail Author Start: 01-14-2024 Duplex scan of lower limb veins US venous duplex LE BI [facility] Start: 01-14-2024 US Lower extremity v ein - bilateral [facility] Start: 12-06-2022 [facility] Start: 09-20-2022 [facility] Patient Education [facility] Work Phone: Payers Date Payer Category Payer Unknown [id number] 1960 Private Health Insurance [facility] [id number] 1955 Unknown [id number] 1954 Unknown [id number] [id number] 1954 Unknown [id number] 2.16.840.1.167941.3.579.2.593 1954 Unknown [id number] 2.16.840.1.006893.3.579.2.593 1954 Unknown [id number] 2.16.840.1.572021.3.579.2.593 1954 Unknown [id number] 2.16.840.1.780212.3.579.2.593 1954 Unknown [id number] 2.16.840.1.712329.3.579.2.593 1954 Unknown [id number] 2.16.840.1.908588.3.579.2.593 1954 Unknown [id number] 2.16.840.1.495969.3.579.2.593 1954 Unknown [id number] 2.16.840.1.240499.3.579.2.593 1954 Unknown [id number] 2.16.840.1.898877.3.579.2.593 1954 Unknown [id number] 2.16.840.1.223643.3.579.2.1259 1954 Unknown [id number] 2.16.840.1.919658.3.579.2.1259 1954 Unknown [id number] 2.16.840.1.015762.3.579.2.9 1954 Unknown [id number] 2.16.840.1.001275.3.579.2.1258 1954 Unknown [id number] 2.16.840.1.766661.3.579.2.1258 1954 Unknown [id number] 2.16.840.1.474589.3.579.2.1258 1954 Unknown [id number] 2.16.840.1.970195.3.579.2.9 Medicaid [id number] Private Health Insurance [employer] [id number] Self-pay [id number] Unknown [id number] Unknown [employer] [id number] Social History Date Type Detail Facility Tobacco smoking status NDIS Unknown if ever smoked [facility] Start: 1955 Sex Assigned At Female F [facility] Start: 12-06-2022 End: 12-03-2023 Tobacco smoking status NHIS Never smoked tobacco (finding) [facility] Sex Assigned At Sex Assigned At Bir th [facility] Other Goals Date Patient Goal Desired Activity /State Clinical Notes 11-15-2022 to 10-25-2023 Note Date & Type Note Facility 10-25-2023 Evaluation note Encounter Date Diagnosis Assessment Notes Oct, GERD (gastroeso phageal reflux disease) (ICD-10 - K21.9) The patient likes Omeprazole than Famotidine. She is currently breaking open the 40 mg capsule. She does not use all of the granules. She would like to cut this to 20 mg daily. Start Omeprazole 20 mg dialy. Return visit here in six months [facility] Other 12-26-2023 Evaluation note* Encounter Date Diagnosis Assessment Notes Treatment Notes Treatment Clinical Notes Sep, Sensation of chest tightness (ICD-10 - R07.89) Reassured patient - lasting seconds w/o provoking activity seems unlikely to be cardiac or pulmonary - will review Echo and PFT and CT Since stopping steroids, symptoms have resolved Monitor for now Echocardiogram, PFT, CT chest normal May require Holter and thyroid testing Sep, Intermittent palpitations (ICD-10 - R00.2) Avoid stimulants. Hydrate. Exercise and monitor symptoms. Call w/ recurrence w/ duration longer than seconds Avoid steroids and NSAIDs Echo w/ normal LVEF Sep, Atherosclerosis of [place] arteries of extremities with intermittent claudication, bilateral legs (ICD-10 - I70.213) inspect feet daily for cuts or calluses. Walk daily until develop pain. Notify office w/ increased pain, decreased walking distance, cool temperature, blue discoloration or nonhealing ulcer Sep, Gastroesophageal reflux disease with esophagitis without hemorrhage (ICD-10 - K21.00) Avoid lying flat after eating. Avoid eating 2 hours prior to bedtime. Smaller, frequent meals may be better tolerated.Weight loss if overweight.PPI with any heartburn.Monitor for dysphagia. Sep, Chronic venous insufficiency (ICD-10 - I87.2) Avoid salt and elevate lower extremities, support stockings, inspect legs and feet daily for blisters and ulcerations. 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 Use your cane for stability when walking. Keep the wound on your leg clean and dry, apply a Band-Aid daily. Follow-up with your family physician if no improvement in your ankle pain in 5 to 7 days. Follow-up with your family physician for further evaluation of the varicosities of your left lower leg. May, Varicose veins of left lower extremity with ulcer of unspecified site (ICD-10 - I83.029) Treatment of varicose veins of the leg home care material was printed [facility] Other 04-17-2023 Evaluation note* Encounter Date Diagnosis Assessment Notes Treatment Notes Treatment Clinical Notes Jan, Bronchitis (ICD-10 - J40) Acute bronchitis material was printed Drink plenty fluids, get plenty of rest. Take your doxycycline at home, 1 tablet twice a day for 10 days. Take the prednisone as prescribed until gone. Take Robitussin, ozlu-qit-jpilbej cough medicine, as needed for cough. Follow-up with your family physician if no improvement in 2 to 3 days [facility] Other 03-04-2023 Evaluation note* Encounter Date Diagnosis Assessment Notes Treatment Notes Treatment Clinical Notes Dec, Right elbow pain (ICD-10 - M25.521) Dec, Contusion of right elbow, initial encounter (ICD-10 - S50.01XA) Drink plenty fluids, get plenty of rest. Alternate ibuprofen and Tylenol for pain. Make sure and take the ibuprofen with food. Follow-up with your family physician if no improvement in 3 to 4 days. Dec, Acute pain of right shoulder (ICD-10 - M25.511) Dec, Other Contusion mater ial was printed [facility] Other 02-22-2023 Evaluation note* Encounter Date Diagnosis Assessment Notes Treatment Notes Treatment Clinical Notes Nov, Schatzki's ring of distal esophagus (ICD-10 - K22.2) Nov, Eckert's esophagus without dysplasia (ICD-10 - K22.70) [facility] History general Narrative - Reported* Type Description Date Medical History scleroderma Medical History back pain Medical History GERD Medical History esophageal stricture Surgical History carpal tunnel release Surgical History EGD 11/2022 Hospitalization History blood clot in right leg 2005 [facility] Other 02-01-2023 History general Narrative - Reported* Type Description Date Medical History scleroderma Medical History back pain Medical History GERD Medical History esophageal stricture Surgical History carpal tunnel release Surgical History EGD 11/2022 Surgical History Colonoscopy 2020 Hospitalization History blood clot in right leg 2005 [facility] Other Evaluation noteNo assessment information available [facility] Diagnosis Onset Date Resolution Status Dysphagia acute Ulcerative esophagitis acute [facility] Work Phone: Evaluation note* Diagnosis Onset Date Resolution Status Ulcerative esophagitis acute [facility] Work Phone: [facility]No [facility] [employer] Other Evaluation note* Diagnosis Onset Date Resolution Status Bleeding from varicose veins of left lower extremity acute [facility] Work Phone: Evaluation note* Diagnosis Onset Date Resolution Status Dysphagia acute GERD (gastroesophageal reflux disease) [facility] Work Phone: Evaluation note* Diagnosis Onset Date Resolution Status Dysphagia acute GERD (gastroesophageal reflux disease) acute Dysphagia acute GERD (gastroesophageal reflux disease) [facility] Work Phone: Hospital Discharge instructions Additional Instructions DISCHARGE INSTRUCTIONS FOR ENDOSCOPY FOR GUILLORY/EGD/ERCP/PEG: -Your throat may feel sore today from the scope that the doctor passed through your throat to visualize your stomach. Take a throat lozenge or suck on ice to ease the discomfort. -Do NOT smoke. -You may notice some streaks of blood in your sputum if the doctor has taken a biopsy. Notify the doctor if you cough up large amounts of blood. -Expect a gassy or full feeling after esophagoscopy. Report any persistent pain or vomiting. -Take it easy today. You need not stay in bed, but avoid strenuous activities such as jogging. FOR SEDATION FOR 24 HOURS: -NO driving -Do NOT operate machinery such as power tools, lawn mowers, snow blowers, sewing machines, etc. -Avoid alcoholic beverages and drugs for allergies, nerves, or sleep. -Do NOT stay alone. Do NOT leave your child unattended. -Do NOT make important personal or business decisions or sign any legal documents. -Eat solid foods and drink liquids in smaller amounts than usual until normal appetite returns. If you should experience an upset stomach, liquids high in sugar content (soda, Kian-aid, non-acid juices) are recommended. -You can resume normal activities tomorrow. FOLLOW UP Please call the office and make a follow up appointment to see me in 6 months. -Notify the doctor if you have any problems. -[phone] Work [facility]: Summary Purpose Family History Relationship Condition Age at Onset Recorded Date/T pj father Heart disease Unknown Not Specified Heart disease Unknown Transient ischemic attack Unknown Relationship Condition Age at Onset Recorded Date/T pj father Heart disease Unknown Not Specified Heart disease Unknown Transient ischemic attack Unknown father Unknown Not Specified Hypertension Unknown Unknown Relationship Condition Age at Onset Recorded Date/T pj father Heart disease Unknown mother Heart disease Unknown Transient ischemic attack Unknown father Unknown mother Hypertension Unknown Unknown Advance Directives Advance Directive Response Recorded Date/ Time Advance Directives No January 25, 2 018 1:33pm Advance Directive Response Recorded Date/ Time Advance Directives No January 25, 2 018 12:33pm Advance Directive Response Recorded Date/ Time Advance Directives No November 2:32pm Chief Complaint and Reason for Visit Chief Complaint dysphagia, screening Chief Complaint GERD, Vomiting, Dysp hagia, Hx of Schatzki's Ring Chief Complaint GERD, Vomiting, Dysp hagia, Hx of Schatzki's Ring GERD, Vomiting, Dysphagia, Hx of Schatzki's Ring Esophageal Stricture Reason for Visit Dysphagia Ulcerative esophagitis Chief Complaint Esophageal Stricture Reason for Visit Ulcerative esophagit is Chief Complaint 3 Month Follow Up/ G erd SELF REF FOR VARICOSE VEINS I83.813 Reason for Visit Bleeding from varico se veins of left lower extremity Chief Complaint SELF REF FOR VARICOS E VEINS I83.813 6 week follow up; [place] [facility] [place] for Visit Bleeding from varico se veins of left lower extremity Chief Complaint 6 month follow up fo r GERD Chief Complaint 6 month follow up fo r GERD R13.10 Reason for Visit Dysphagia GERD (gastroesophageal reflux disease) Chief Complaint 6 month follow up fo r GERD R13.10 follow up/PPI medication Reason for Visit Dysphagia GERD (gastroesophageal reflux disease) Dysphagia GERD (gastroesophageal reflux disease) Additional Source Comments INFORMATION SOURCE (unrecogn ized section and content) DATE CREATED AUTHOR 09/14/2018 [facility] DATE CREATED AUTHOR AUTHOR'S ORGANIZ ATION 09/10/2019 [facility] DATE CREATED AUTHOR AUTHOR'S ORGANIZ ATION 02/16/2023 [facility] DATE CREATED AUTHOR AUTHOR'S ORGANIZ ATION 05/31/2024 [facility] DATE CREATED AUTHOR AUTHOR'S ORGANIZ ATION 06/08/2024 [facility] Goals (unrecognized section and content) Goals may be documented in a n alternate sectionGoals may be documented in an alternate sectionNo InformationNo InformationNo InformationNo InformationGoals may be documented in an alternate sectionNo InformationNo InformationNo InformationGoals may be documented in an alternate sectionGoals may be documented in an alternate sectionGoals may be documented in an alternate sectionGoals may be documented in an alternate sectionGoals may be documented in an alternate section Care Teams (unrecognized sec tion and content) Team Status: Active Member Role Status Dates Steve Armendariz DO Primary Care Provider Active Team Status: Inactive Member Role Status Dates Steve Armendariz DO Primary Care Provider Active Start: May 27, 2024 End: May 27, 2024 Miguel Sarah MD Attending Provider Active S tart: May 27, 2024 End: May 27, 2024 Team Status: Active Member Role Status Dates Steve Armendariz DO Primary Care Provide r, Attending Provider Active Start: December 25, 2023 Team Status: Inactive Member Role Status Dates Steve Armendariz DO Primary Care Provider Active Start: December 26, 2023 End: December 26, 2023 Angelic Slaughter MD Attending Provider Active Start: December 26, 2023 End: December 26, 2023 Team Status: Inactive Member Role Status Dates Steve Armendariz DO Primary Care Provider Active Start: January 14, 2024 End: January 14, 2024 Angelic Slaughter MD Attending Provider Active Start: January 14, 2024 End: January 14, 2024 Team Status: Inactive Member Role Status Dates Steve Armendariz DO Primary Care Provider Active Start: February 06, 2024 End: February 06, 2024 Angelic Slaughter MD Attending Provider Active Start: February 06, 2024 End: February 06, 2024 Team Status: Inactive Member Role Status Dates Steve Armendariz , Primary Care Provider Active Alex Neely MD Attending Provider Active Team Status: Inactive Member Role Status Dates Steve Armendariz DO Primary Care Provider Active VASHTI De La Rosa Attending Provider Active Team Status: Inactive Member Role Status Dates Alex Neely MD Attending Provider Active Start: October 25, 2023 End: October 25, 2023 Team Status: Inactive Member Role Status Dates Setve Armendariz , Primary Care Provider Active Start: June 05, 2024 End: June 05, 2024 Miguel Sarah MD Attending Provider Active S tart: June 05, 2024 End: June 05, 2024 Team Status: Inactive Member Role Status Dates Steve Armendariz DO Primary Care Provider Active Start: June 09, 2024 End: June 09, 2024 Perez Mims APRN Attending Provider Active Start: June 09, 2024 End: June 09, 2024 REASON FOR VISIT (unrecogniz ed section and content) Patient here for 3 month fol low up. No GI complaints on Omeprazole 40 mg daily.Test resultsheart - wants tests orderLEFT ANKLE, SEVERE PAIN, AND VERICOSE VEIN LEFT LEG IS BLEEDINGCONGESTION, TO MUCH COUGHINGFELL ON RIGHT ARM FOR RECORDS PERTAINING TO PATIENTS WHO ARE OR HAVE BEEN ENROLLED IN A CHEMICAL DEPENDENCY/SUBSTANCEABUSE PROGRAM, SOME INFORMATION MAY BE OMITTED. This clinical summary was aggregated from multiple sources. Caution should be exercised in using it in the provision of clinical care. This summary normalizes information from multiple sources, and as a consequence, information in this document may materially change the coding, format and clinical context of patient data. In addition, data may be omitted in some cases. CLINICAL DECISIONS SHOULD BE BASED ON THE PRIMARY CLINICAL RECORDS. [employer] provides no warranty or guarantee of the accuracy or completeness of information in this document.
[2024-06-17 12:31] LABS: Basophils Percent Auto 0.6 % (0.2-2.0); Eosinophils Absolute Auto 0.1 10^3/uL (0.0-0.7); Eosinophils Percent Auto 1.7 % (0.9-7.0); Hematocrit 39.9 % (36.0-48.0); Hemoglobin 13.3 g/dL (12.0-16.0); Immature Granulocytes Abs Auto 0.01 10^3/uL (0.00-0.03); Immature Granulocytes Pct Auto 0.1 % (0.0-0.5); Lymphocytes Absolute Auto 2.7 10^3/uL (1.2-3.8); Lymphocytes Percent Auto 38.7 % (20.5-60.0); Mean Corpuscular HGB Conc 33.3 g/dL (29.9-35.2); Mean Corpuscular Hemoglobin 30.2 pg (26.7-34.0); Mean Corpuscular Volume 90.5 fL (81.0-99.0); Mean Platelet Volume 8.8 fL (9.5-13.5); Monocytes Absolute Auto 0.5 10^3/uL (0.3-0.8); Monocytes Percent Auto 7.2 % (1.7-12.0); Neutrophils Absolute Auto 3.6 10^3/uL (1.4-6.5); Neutrophils Percent Auto 51.7 % (43.0-75.0); Platelet Count 177 10^3/uL (150-450); Red Blood Count 4.41 10^6/uL (4.20-5.40); Red Cell Distribution Width 13.8 % (11.0-15.0)
[2024-06-17 12:42] LABS: Erythrocyte Sedimentation Rate 27 mm/hr (<=30)
[2024-06-17 12:56] LABS: Alanine Aminotransferase 24 U/L (14-59); Albumin Globulin Ratio 1.1; Albumin Level 3.3 g/dL (3.4-5.0); Alkaline Phosphatase 73 U/L (46-116); Anion Gap 12.1; Aspartate Amino Transferase 19 U/L (15-37); BUN Creatinine Ratio 23.7; Bilirubin Total 0.4 mg/dL (0.2-1.0); Calcium 9.2 mg/dL (8.5-10.1); Carbon Dioxide 28.8 mmol/L (21.0-32.0); Chloride 107 mmol/L (98-107); Estimated GFR (African America >60 (>=60); Estimated GFR (Non-African Ame 60 (>=60); Globulin 3.1 g/dL; Glucose 97 mg/dL (74-106); Potassium 3.9 mmol/L (3.5-5.1); Sodium 144 mmol/L (136-145); Total Protein 6.4 g/dL (6.4-8.2)
[2024-06-17 13:08] LABS: Bilirubin Urine NEGATIVE (NEGATIVE); Blood Urine TRACE-I (NEGATIVE); Clarity Urine CLEAR (CLEAR); Color Urine LT. YELLOW (YELLOW); Glucose Urine UA NEGATIVE (NEGATIVE); Ketones Urine NEGATIVE (NEGATIVE); Leukocyte Esterase Urine SMALL (NEGATIVE); Nitrite Urine NEGATIVE (NEGATIVE); Protein Urine NEGATIVE (NEG/TRACE); Specific Gravity Urine <=1.005 (1.005-1.025); Urobilinogen Urine 0.2 EU/dL (0.2-1.0); pH Urine 5.5 (5.0-9.0)
[2024-06-17 13:28] LABS: RBC Urine 0-2 #/HPF (0-2)
[2024-06-17 13:29] LABS: Bacteria Urine TRACE #/HPF (NONE SEEN); Mucus Urine NONE SEEN (NONE SEEN); Squamous Epithelial Cell Urine FEW #/LPF (NONE/RARE)
[2024-06-18 05:09] LABS: Complement C3, Serum 125 mg/dL (82-167); Complement C4, Serum 20 mg/dL (12-38)
[2024-06-18 11:09] LABS: Complement, Total (CH50) 55 U/mL (>41)
== END 2024-06-17 12:01 | disposition home or self-care (01) ==
LOC: LAB 12:01
PROVIDERS: PCP Internal Medicine; Visit Provider Internal Medicine Rheumatology
DX: M34.0 Progressive systemic sclerosis (principal); M15.0 Primary generalized (osteo)arthritis; Z79.899 Other long term (current) drug therapy
CPT/HCPCS: 36415; 80053; 81001; 85025; 85652; 86160; 86162

== ENCOUNTER 2024-07-09 10:57 | Outpatient (OUT) | payer OTHER, SELFPAY ==
--- OUTSIDE RECORDS SUMMARY | 2024-07-09 11:07 | XMS_ITS | CCD ---
Author Organization [facility] Team Providers Care New Home Sales Consultant Name Role Phone EDUARDOE, PAVEL Unavailable Unavailable SKIE, PAVEL Unavailable Unavailable PAVLOCK, MAX CHAZ Unavailable Unavailable SELF, REFERRED Unavailable Unavailable SC Unavailable Unavailable SKIE, PAVEL Unavailable Unavailable ELGAFY, GARETH K Unavailable Unavailable ELGAFY, GARETH K Unavailable Unavailable PAVLOCK, MAX CHAZ Unavailable Unavailable PAVLOCK, MAX CHAZ Unavailable Unavailable Pedro Ruiz Attending Provider [phone] Steve Armendariz Primary Care Provider DO Steve Armendariz Primary Care Provider [...] Unavailable DO Steve Armendariz Primary Care Provider VASHTI Damon Attending Provider [phone] Alex Neely Unavailable [phone] DO Steve Armendariz Primary Care Provider MD Angelic Slaughter Attending Provider BERTIN CORRAL Attending Unavailable ELLIS, BERTIN Tellez Attending Unavailable BERTIN CORRAL Attending Unavailable BERTIN CORRAL Attending Unavailable CORRAL, BERTIN Tellez Attending Unavailable CORRAL, BERTIN Tellez Attending Unavailable BERTIN CORRAL Attending Unavailable DO Steve Armendariz Primary Care Provider [phone] MD Miguel Sarah Attending Provider Angelic Slaughter Admitting UnavailAngelic Dodge Attending Unavailabl e Steve Armendariz [facility] Unavailable Miguel Sarah Admitting Unavailable Miguel Sarah Attending Unavailable Steve Armendariz [facility] Unavailable Allergies Allergy Classification Reported Allergen(s) Allergy Type Date of Onset Reaction(s) Facility Aminoglycosides (antibiotic) (1 source) Gentamicin Sulfate (ASSISTED) Drug Allergy 01-31-20 18 Unknown Reaction [facility] Dihydrofolate Reductase Inhibitors (antibiotic) (1 source) Trimethoprim Drug Allergy 01-31-20 18 Headache [facility] Penicillins (antibiotic) (1 source) Penicillins Drug Allergy 01-31-20 18 Swelling of Lip/Tongue/Th roat [facility] Sulfonamides (antibiotic) (1 source) Sulfamethoxazole Drug Allergy 01-31-20 18 Headache [facility] (16 sources) Gentamicin Sulfate (ASSISTED); Translations: [GENTAMICIN] Drug Allergy 04-21-20 15 Unknown Reaction, Unknown [facility] (10 sources) meloxicam Drug Allergy 07-31-20 [address] [facility] (12 sources) Penicillins Drug allergy (disorder) 06-07-20 10 Swelling of Lip/Tongue/Th roat [facility] (8 sources) Sulfonamides (Antibiotic) Drug allergy (disorder) 07-31-20 18 Unknown Reaction [facility] (14 sources) Sulfamethoxazole Drug Allergy 01-31-20 18 Headache, Comment:heada ches, Headache, Comment:heada ches [facility] (10 sources) Trimethoprim Drug Allergy 01-31-20 18 Headache [facility] (7 sources) meloxicam Drug Allergy Unknown [employer] [facility] [employer] Other (7 sources) Sulfamethoxazole / Trimethoprim Drug Allergy Unknown [employer] [facility] Other (7 sources) Sulfonamides (Antibiotic) Propensity to adverse reactions Unknown [employer] [facility] Other (7 sources) Penicillian V Potassium Propensity to adverse reactions Unknown [employer] Other (13 sources) gentamycin Propensity to adverse reactions 10-25-19 24 Unknown, Unknown Reaction [facility] (1 source) meloxicam Drug Allergy [facility] (4 sources) Penicillin Drug Allergy Comment:lips swell up [employer] Other (10 sources) Penicillin V Drug Allergy 10-25-19 24 Unknown, Unknown Reaction [facility] (4 sources) Substance with sulfonamide structure and antibacterial mechanism of action (substance) Drug allergy 12-07-19 16 Unknown [employer] Other (1 source) Allergies Reconciled Propensity to adverse reactions Unknown [employer] Other (10 sources) Gentamicin in Saline Drug allergy 10-25-19 24 Comment:made eye bloody [facility] (1 source) patient allergy list reviewed by nurse or physicia Propensity to adverse reactions 12-07-19 16 Comment:Done [employer] Other Medications Current Medications Medication Drug Class(es) Dates Sig (Normalized) Sig (Original) acetaminophen 500 mg oral tablet (11 sources) Start: 01-30-2018 Acetaminophen (Tylenol Extra Strength) 500 mg Tablet Active 500 MG PO As Directed January 30, 2018 12:00am Aloe Vera (11 sources) Start: 01-30-2018 Aloe Vera Active 1 [...] Active ascorbic acid 1000 mg oral tablet (18 sources) Vitamin C Start: 01-30-2018 Ascorbic Acid [...] 2018 11:00pm cholecalciferol 0.025 mg oral capsule (14 sources) Vitamin D Start: 01-30-2018 Cholecalcifero l [...] Restasis Active Cyclosporine (Restasis) 0.05 % dropperette (3 sources) Start: 05-27-2024 take 1 drop(s) into the eye(s) every twelve hours Cyclosporine (Restasis) 0.05 % dropperette Active 1 DROPS EYE-BOTH Every 12 hours May 27, 2024 12:00am Digestive Enzymes (Enzyme Digest) Capsule (11 sources) Start: 01-30-2018 Digestive Enzy mes (Enzyme [...] January 29, 2018 11:00pm Eye Promise Restore (9 sources) Start: 09-20-2022 take 1 tablet by gladis th once daily [facility] Restore Active 1 TAB PO Daily September 20, 2022 1:00am Start: 09-20-2022 take 1 tablet by mouth once da sarah [facility] Promise Restore Active 1 TAB PO Daily September 20, 2022 12:00am Eye Vitamins (7 sources) Eye Vitamins Act jorge Ez Tears (9 sources) Start: 09-20-2022 take 1 tablet by gladis th once daily Ez Tears Active 1 TAB PO Daily September 20, 2022 1:00am Start: 09-20-2022 take 1 tablet by mouth once da sarah Ez Tears Active 1 TAB PO Daily September 20, 2022 12:00am Garlic preparation (18 sources) Non-Standardized Food Allergenic Extract Start: 01-30-2018 [...] Directed January 29, 2018 11:00pm Garlic Active Grape Seed Ext-Bioflav,[place] (1 source) Start: 01-30-2018 take 1 tablet by mouth once daily Grape Seed Ext-Bioflav,[place] Active 1 TAB PO Daily January 30, 2018 12:00am grape seed extract 100 mg oral capsule (7 sources) take 2.5 tablets by mouth once daily Grape Seed Extract 100 MG 2.5 tablets orally daily Active Grape Seed Extra ct Active Grape Seed Xt-Bioflav,[place] (10 sources) Start: 01-30-2018 Grape Seed Xt- Bioflav,[place] Active 1 TAB PO As Directed January 30, 2018 8:53am Start: 01-30-2018 take 1 tablet by gladis th once daily Grape Seed Xt-Bioflav,[place] Active 1 TAB PO Daily January 30, 2018 12:00am Start: 01-30-2018 take 1 tablet by gladis th once daily Grape Seed Xt-Bioflav,[place] Active 1 TAB PO Daily January 29, 2018 11:00pm Start: 01-30-2018 Grape Seed Xt- Bioflav,[place] Active 1 TAB PO As Directed January 29, 2018 11:00pm Lactobacillus Combination No .4 (Probiotic) 3 billion cell Capsule (11 sources) Start: 01-30-2018 Lactobacillus Combination No.4 (Probiotic) [...] 12:00am September 20, 2022 1:12pm Melatonin Active [place] Extract (18 sources) Start: 01-30-2018 [place] Ext ract Active 1 TAB PO As Directed January 30, 2018 8:53am Start: 01-30-2018 take 1 tablet by mouth once da sarah [place] Extract Active 1 TAB PO Daily January 30, 2018 12:00am Start: 01-30-2018 take 1 tablet by mouth once da sarah [place] Extract Active 1 TAB PO Daily January 29, 2018 11:00pm Start: 01-30-2018 [place] Ext ract Active 1 TAB PO As Directed January 29, 2018 11:00pm [place] Extra ct Active [place] 3-Oem-Xrj-Fish Oil (Fi sh Oil) 1,000 mg (120 mg-180 mg) Capsule (11 sources) Start: 01-30-2018 [place] 3-Dha-Ep a-Fish Oil (Fish Oil) 1,000 mg (120 mg-180 mg) Capsule Active 1 TAB PO As Directed January 30, 2018 8:53am Start: 01-30-2018 End: 09-20-2022 [place] 5-Unt-Xnd-Fish Oil (Fi sh Oil) 1,000 mg (120 mg-180 mg) Capsule Discontinued 1 TAB PO As Directed January 30, 2018 12:00am September 20, 2022 1:26pm Start: 01-30-2018 End: 09-20-2022 [place] 9-Kmx-Zgq-Fish Oil (Fi sh Oil) 1,000 mg (120 mg-180 mg) Capsule Discontinued 1 TAB PO As Directed January 29, 2018 11:00pm September 20, 2022 12:26pm Start: 01-30-2018 [place] 3-Dha-Ep a-Fish Oil (Fish Oil) 1,000 mg [...] Dates Sig (Normalized) Sig (Original) Aloe Vera (11 sources) Start: 01-30-2018 End: 01-30-2018 Aloe Vera [...] Active calcium carbonate 500 mg chewable tablet (11 sources) Start: 01-30-2018 End: 12-06-2022 take 1 tablet by mouth three times daily Calcium Carbonate (Tums) 200 mg calcium (500 mg) Tablet,Chewable Discontinued 200 MG PO Three times daily January 30, 2018 12:00am December 06, 2022 12:56pm calcium carbonate 1000 mg / magnesium hydroxide 200 mg chewable tablet (8 sources) Start: 01-30-2018 End: 05-27-2024 Calcium Carbonate-Mag Hydroxid Discontinued 1 TAB PO As Directed January 30, 2018 12:00am May 27, 2024 11:29am choline 650 mg oral tablet (11 sources) Start: 01-30-2018 End: 01-30-2018 Choline Dihydrogen Citrate Discontinued TABLET January 30, 2018 12:00am January 30, 2018 8:52am Cyclosporine (Restasis) 0.05 % Dropperette (9 sources) Start: 01-30-2018 End: 05-27-2024 take 1 [...] daily Omeprazole Discontinued 20 MG PO Daily 30 May 27, 2024 11:34am May 27, 2024 11:38am polyethylene glycol 400 4 mg/ml / propylene glycol 3 mg/ml ophthalmic solution (9 sources) Start: 09-20-2022 End: 06-09-2024 Peg 400-Propylene [...] Jan, Not-Taking/PRN raNITIdine 150 mg oral tablet (11 sources) Histamine-2 Receptor Antagonist Start: 01-30-2018 End: 09-20-2022 Ranitidine Hcl (Zantac) 150 mg Tablet Discontinued 2 TAB PO As Directed January 30, 2018 12:00am September 20, 2022 1:26pm tiZANidine 4 mg oral capsule (9 sources) Central alpha-2 Adrenergic Agonist Start: 09-20-2022 End: 05-27-2024 take 4 mg by mouth once daily at bedtime Tizanidine Discontinued 4 MG PO Daily at bedtime September 20, 2022 1:00am May 27, 2024 11:29am traMADol hydrochloride 50 mg oral tablet (15 sources) Opioid Agonist Start: 01-30-2018 End: 09-20-2022 Tramadol Discontinued 50 MG PO As Directed January 30, 2018 12:00am September 20, 2022 1:15pm Zinc (16 sources) Start: 09-20-2022 End: 05-27-2024 take 50 [...] unspecified] Episodic Other aftercare (1 source) Other care home (current) drug therapy; Translations: [OTH CHECK WEIGHER CURRENT DRUG THERAPY] Onset: 3 Episodic Other [...] Episodic Other diseases of veins and lymphatics (2 sources) Venous insufficiency (chronic) (peripheral); Translations: [Venous (peripheral) insufficiency, unspecified] Episodic Other diseases of veins and lymphatics (1 source) Venous insufficiency of leg; Translations: [Venous insufficiency (chronic) (peripheral)] 06-29-2024 Episodic Other gastrointestinal disorders (20 sources) Dysphagia; Translations: [Dysphagia, unspecified] 01-30-2018 Episodic Other gastrointestinal disorders (7 sources) Dysphagia, unspecified; Translations: [Dysphagia, unspecified] Onset: [...] conditions (not mental disorders or infectious disease) (12 sources) Patient encounter status; Translations: [Encounter for screening for malignant neoplasm of colon] 03-17-2021 Episodic Other upper respiratory infections (1 source) Acute pharyngitis; Translations: [Acute pharyngitis, unspecified] Episodic Peripheral and visceral atherosclerosis (10 sources) Atherosclerosis of [place] arteries of extremities with intermittent claudication, bilateral legs; Translations: [Atherosclerosis of [place] arteries of the extremities] Onset: 2 Chronic [...] Systemic lupus erythematosus and connective tissue disorders (14 sources) Systemic sclerosis, unspecified; 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: 8 Chronic Varicose veins of lower extremity (14 sources) Varicose ulcer of lower extremity; Translations: [...] Test Name Value Interpretation Reference Range Facility Basophils Auto (Bld) [#/Vol] on 06-17-2024 Basophils (Bld) [#/Vol] 0.0 10 3/uL 0.0-0.1 [facility] Basophils/100 WBC Auto (Bld) on 06-17-2024 Basophils/100 WBC (Bld) 0.6 % 0.2-2.0 [facility] Eosinophils/100 WBC Auto (Bl d)on 06-17-2024 Eosinophils/100 WBC (Bld) 1.7 % 0.9-7.0 [facility] Erythrocyte distribution wid th Auto (RBC) [Ratio]on 06-17-2024 Erythrocyte distribution width (RBC) [Ratio] 13.8 % 11.0-15.0 [facility] Estimated glomerular filtrat ion rate (GFR) non- Americanon 06-17-2024 GFR/1.73 sq M.predicted among non-blacks MDRD (S/P/Bld) [Vol rate/Area] 60 mL/min/{1.73_m2} >=60 [facility] Globulin Calc (S) [Mass/Vol] on 06-17-2024 Globulin (S) [Mass/Vol] 3.1 g/dL [facility] Hematocrit Auto (Bld) [Volum e fraction]on 06-17-2024 Hematocrit (Bld) [Volume fraction] 39.9 % 36.0-48.0 [facility] Hemoglobin [Mass/volume] in Bloodon 06-17-2024 Hemoglobin (Bld) [Mass/Vol] 13.3 g/dL 12.0-16.0 [facility] Laboratory - Chemistry and C hemistry - challengeon 06-17-2024 Albumin [Mass/Vol] 3.3 g/dL Low 3.4-5.0 [facility] ALP [Catalytic activity/Vol] 73 U/L 46-116 [facility] ALT [Catalytic activity/Vol] 24 U/L 14-59 [facility] AST [Catalytic activity/Vol] 19 U/L 15-37 [facility] Bilirubin [Mass/Vol] 0.4 mg/dL 0.2-1.0 [facility] Calcium [Mass/Vol] 9.2 mg/dL 8.5-10.1 [facility] Chloride [Moles/Vol] 107 mmol/L 98-107 [facility] CO2 [Moles/Vol] 28.8 mmol/L 21.0-32.0 [facility] Creatinine [Mass/Vol] 0.93 mg/dL 0.55-1.02 [facility] GFR/1.73 sq M.predicted MDRD (S/P/Bld) [Vol rate/Area] mL/min/{1.73_m2} >=60 [facility] Glucose [Mass/Vol] 97 mg/dL 74-106 [facility] Potassium [Moles/Vol] 3.9 mmol/L 3.5-5.1 [facility] Protein [Mass/Vol] 6.4 g/dL 6.4-8.2 [facility] Sodium [Moles/Vol] 144 mmol/L 136-145 [facility] Urea nitrogen [Mass/Vol] 22.0 mg/dL High 7.0-18.0 [facility] Urea nitrogen/Creatinine [Mass ratio] 23.7 mg/mg [facility] Bilirubin Ql (U) Negative NEGATIVE [facility] Glucose (U) [Mass/Vol] Negative NEGATIVE [facility] Ketones Ql (U) Negative NEGATIVE [facility] pH (U) 5.5 [pH] 5.0-9.0 [facility] Specific gravity (U) [Rel density] <=1.005 Abnormal 1.005-1.025 [facility] Urobilinogen Qn (U) 0.2 {Lora'U}/dL 0.2-1.0 [facility] Laboratory - Hematology and Cell countson 06-17-2024 ESR (Bld) [Velocity] 27 mm/h <=30 [facility] Immature granulocytes/100 WBC (Bld) 0.1 % 0.0-0.5 [facility] Laboratory - Specimen inform ationon 06-17-2024 Appearance (U) CLEAR CLEAR [facility] Color (U) LT. YELLOW YELLOW [facility] Laboratory - Urinalysison Leukocyte esterase Test strip Ql (U) SMALL Abnormal NEGATIVE [facility] Mucus Ql (Urine sed) NONE SEEN NONE SEEN [facility] Nitrite Ql (U) Negative NEGATIVE [facility] Protein Ql (U) Negative NEG/TRACE [facility] Leukocytes [#/volume] correc pan for nucleated erythrocytes in Blood by Automated counon 06-17-2024 WBC corrected for nucl RBC Auto (Bld) [#/Vol] 7.0 10 3/uL 4.0-11.0 [facility] Lymphocytes Auto (Bld) [#/Vo l]on 06-17-2024 Lymphocytes (Bld) [#/Vol] 2.7 10 3/uL 1.2-3.8 [facility] Lymphocytes/100 WBC Auto (Bl d)on 06-17-2024 Lymphocytes/100 WBC (Bld) 38.7 % 20.5-60.0 [facility] MCH Auto (RBC) [Entitic mass ]on 06-17-2024 MCH (RBC) [Entitic mass] 30.2 pg 26.7-34.0 [facility] MCHC Auto (RBC) [Mass/Vol]on 06-17-2024 MCHC (RBC) [Mass/Vol] 33.3 g/dL 29.9-35.2 [facility] MCV Auto (RBC) [Entitic vol] on 06-17-2024 MCV (RBC) [Entitic vol] 90.5 fL 81.0-99.0 [facility] Monocytes Auto (Bld) [#/Vol] on 06-17-2024 Monocytes (Bld) [#/Vol] 0.5 10 3/uL 0.3-0.8 [facility] Monocytes/100 WBC Auto (Bld) on 06-17-2024 Monocytes/100 WBC (Bld) 7.2 % 1.7-12.0 [facility] Neutrophils Auto (Bld) [#/Vo l]on 06-17-2024 Neutrophils (Bld) [#/Vol] 3.6 10 3/uL 1.4-6.5 [facility] Neutrophils/100 WBC Auto (Bl d)on 06-17-2024 Neutrophils/100 WBC (Bld) 51.7 % 43.0-75.0 [facility] No Panel Informationon 06-17 Eosinophils # (Auto) 0.1 10 3/uL 0.0-0.7 [facility] Immature Granulocyte # (Auto) 0.01 10 3/uL 0.00-0.03 [facility] Total Complement (CH50) 55 U/mL >41 [facility] Comment on above: Age Male Female [...] to determine out of range values.Performed at: [facility] [id number] Director: Savage Vaughan PhD, Phone: [phone] Urine Bacteria TRACE #/HPF Abnormal NONE SEEN [facility] Urine Occult Blood TRACE-I NEGATIVE [facility] Urine RBC 0-2 #/HPF 0-2 [facility] Urine Squamous Epithelial Cells FEW #/LPF Abnormal NONE/RARE [facility] Urine WBC 2-5 #/HPF Abnormal NONE SEEN [facility] Platelet mean volume Auto (B ld) [Entitic vol]on 06-17-2024 Platelet mean volume (Bld) [Entitic vol] 8.8 fL Low 9.5-13.5 [facility] Platelets Auto (Bld) [#/Vol] on 06-17-2024 Platelets (Bld) [#/Vol] 177 10 3/uL 150-450 [facility] RBC Auto (Bld) [#/Vol]on RBC (Bld) [#/Vol] 4.41 10 6/uL 4.20-5.40 [facility] Serum or plasma albumin/glob ulin mass ratioon 06-17-2024 Albumin/Globulin [Mass ratio] 1.1 {ratio} [facility] Serum or plasma anion gap de terminationon 06-17-2024 Anion gap [Moles/Vol] 12.1 mmol/L [facility] Serum or plasma complement C 3 measurement (mass/volume)on 06-17-2024 Complement C3 [Mass/Vol] 125 mg/dL 82-167 [facility] Serum or plasma complement C 4 measurement (mass/volume)on 06-17-2024 Complement C4 [Mass/Vol] 20 mg/dL 12-38 [facility] Comment on above: Performed at: [facility] [id number] [place], [place] [id number] Director: Savage Vaughan PhD, Phone: [phone] US venous duplex LE BIon US venous duplex LE BI [facility] [place] [address] [place] [id number] Ultrasound Report Signed Patient: Bashir Coats MR#: [id number] : 1955 Acct:[id number] Age/Sex: 68 / F ADM Date: 01/14/24 Loc: Room: Type: [facility] Attending Dr: Angelic Slaughter MD Ordering Provider: [...] Bucky Reynaga M.D.01/15/2024 12:26 PM Dictation Location: [place] [address] Tech: Lizeth Dixon Transcribed By: COLTON 01/15/24 1226 Dictated By: Bucky Reynaga MD 01/15/24 1224 Signed By: 01/15/24 1226 Normal [facility] Automated epithelial cells c ount in urine sediment (number/area)on 12-25-2023 Epithelial cells Auto (Urine sed) [#/Area] FEW #/LPF NONE/RARE [facility] Automated leukocytes count i n urine sediment (number/area)on 12-25-2023 WBC Auto (Urine sed) [#/Area] 5-10 #/HPF 0-2 [facility] Automated urine specific gra vity by refractometryon 12-25-2023 Specific gravity Refractometry automated (U) [Rel density] 1.010 1.005-1.025 [facility] Basophils Auto (Bld) [#/Vol] on 12-25-2023 Basophils (Bld) [#/Vol] 0.1 10 3/uL 0.0-0.1 [facility] Basophils/100 WBC Auto (Bld) on 12-25-2023 Basophils/100 WBC (Bld) 0.8 % 0.2-2.0 [facility] Bilirubin Auto test strip (U ) [Mass/Vol]on 12-25-2023 Bilirubin (U) [Mass/Vol] Negative NEGATIVE [facility] Casts typing in urine sedime nt by light microscopyon 12-25-2023 Casts LM Nom (Urine sed) NONE SEEN #/LPF NONE SEEN [facility] Color Auto (U)on 12-25-2023 Color (U) LT. YELLOW YELLOW [facility] Eosinophils/100 WBC Auto (Bl d)on 12-25-2023 Eosinophils/100 WBC (Bld) 1.4 % 0.9-7.0 [facility] Erythrocyte distribution wid th Auto (RBC) [Ratio]on 12-25-2023 Erythrocyte distribution width (RBC) [Ratio] 13.8 % 11.0-15.0 [facility] Estimated glomerular filtrat ion rate (GFR) non- Americanon 12-25-2023 GFR/1.73 sq M.predicted among non-blacks MDRD (S/P/Bld) [Vol rate/Area] mL/min/{1.73_m2} >=60 [facility] Globulin Calc (S) [Mass/Vol] on 12-25-2023 Globulin (S) [Mass/Vol] 3.5 g/dL [facility] Hematocrit Auto (Bld) [Volum e fraction]on 12-25-2023 Hematocrit (Bld) [Volume fraction] 39.7 % 36.0-48.0 [facility] Hemoglobin [Mass/volume] in Bloodon 12-25-2023 Hemoglobin (Bld) [Mass/Vol] 12.6 g/dL 12.0-16.0 [facility] Ketones Auto test strip (U) [Mass/Vol]on 12-25-2023 Ketones (U) [Mass/Vol] Negative NEGATIVE [facility] Laboratory - Chemistry and C hemistry - challengeon 12-25-2023 Albumin [Mass/Vol] 3.3 g/dL 3.4-5.0 [facility] ALP [Catalytic activity/Vol] 74 U/L 46-116 [facility] ALT [Catalytic activity/Vol] 27 U/L 14-59 [facility] AST [Catalytic activity/Vol] 17 U/L 15-37 [facility] Bilirubin [Mass/Vol] 0.3 mg/dL 0.2-1.0 [facility] Calcium [Mass/Vol] 9.0 mg/dL 8.5-10.1 [facility] Chloride [Moles/Vol] 104 mmol/L 98-107 [facility] CO2 [Moles/Vol] 29.7 mmol/L 21.0-32.0 [facility] Creatinine [Mass/Vol] 0.91 mg/dL 0.55-1.02 [facility] GFR/1.73 sq M.predicted MDRD (S/P/Bld) [Vol rate/Area] mL/min/{1.73_m2} >=60 [facility] Glucose [Mass/Vol] 94 mg/dL 74-106 [facility] Potassium [Moles/Vol] 3.7 mmol/L 3.5-5.1 [facility] Protein [Mass/Vol] 6.8 g/dL 6.4-8.2 [facility] Sodium [Moles/Vol] 143 mmol/L 136-145 [facility] Urea nitrogen [Mass/Vol] 18.0 mg/dL 7.0-18.0 [facility] Urea nitrogen/Creatinine [Mass ratio] 19.8 mg/mg [facility] Laboratory - Hematology and Cell countson 12-25-2023 ESR (Bld) [Velocity] 29 mm/h <=30 [facility] Immature granulocytes/100 WBC (Bld) 0.3 % 0.0-0.5 [facility] Leukocytes [#/volume] correc pan for nucleated erythrocytes in Blood by Automated counon 12-25-2023 WBC corrected for nucl RBC Auto (Bld) [#/Vol] 8.0 10 3/uL 4.0-11.0 [facility] Lymphocytes Auto (Bld) [#/Vo l]on 12-25-2023 Lymphocytes (Bld) [#/Vol] 2.6 10 3/uL 1.2-3.8 [facility] Lymphocytes/100 WBC Auto (Bl d)on 12-25-2023 Lymphocytes/100 WBC (Bld) 32.4 % 20.5-60.0 [facility] MCH Auto (RBC) [Entitic mass ]on 12-25-2023 MCH (RBC) [Entitic mass] 29.3 pg 26.7-34.0 [facility] MCHC Auto (RBC) [Mass/Vol]on 12-25-2023 MCHC (RBC) [Mass/Vol] 31.7 g/dL 29.9-35.2 [facility] MCV Auto (RBC) [Entitic vol] on 12-25-2023 MCV (RBC) [Entitic vol] 92.3 fL 81.0-99.0 [facility] Monocytes Auto (Bld) [#/Vol] on 12-25-2023 Monocytes (Bld) [#/Vol] 0.6 10 3/uL 0.3-0.8 [facility] Monocytes/100 WBC Auto (Bld) on 12-25-2023 Monocytes/100 WBC (Bld) 7.0 % 1.7-12.0 [facility] Mucus LM Ql (Urine sed)on Mucus Ql (Urine sed) TRACE NONE SEEN [facility] Neutrophils Auto (Bld) [#/Vo l]on 12-25-2023 Neutrophils (Bld) [#/Vol] 4.6 10 3/uL 1.4-6.5 [facility] Neutrophils/100 WBC Auto (Bl d)on 12-25-2023 Neutrophils/100 WBC (Bld) 58.1 % 43.0-75.0 [facility] No Panel Informationon 12-24 Eosinophils # (Auto) 0.1 10 3/uL 0.0-0.7 [facility] Immature Granulocyte # (Auto) 0.02 10 3/uL 0.00-0.03 [facility] Total Complement (CH50) 57 U/mL >41 [facility] Comment on above: Age Male Female [...] to determine out of range values.Performed at: [facility] [id number] Director: Savage Vaughan PhD, Phone: [phone] Platelet mean volume Auto (B ld) [Entitic vol]on 12-25-2023 Platelet mean volume (Bld) [Entitic vol] 8.9 fL 9.5-13.5 [facility] Platelets Auto (Bld) [#/Vol] on 12-25-2023 Platelets (Bld) [#/Vol] 201 10 3/uL 150-450 [facility] Protein Auto test strip (U) [Mass/Vol]on 12-25-2023 Protein (U) [Mass/Vol] Negative NEG/TRACE [facility] RBC Auto (Bld) [#/Vol]on RBC (Bld) [#/Vol] 4.30 10 6/uL 4.20-5.40 [facility] Serum or plasma albumin/glob ulin mass ratioon 12-25-2023 Albumin/Globulin [Mass ratio] 0.9 {ratio} [facility] Serum or plasma anion gap de terminationon 12-25-2023 Anion gap [Moles/Vol] 13.0 mmol/L [facility] Serum or plasma complement C 3 measurement (mass/volume)on 12-25-2023 Complement C3 [Mass/Vol] 121 mg/dL 82-167 [facility] Serum or plasma complement C 4 measurement (mass/volume)on 12-25-2023 Complement C4 [Mass/Vol] 20 mg/dL 12-38 [facility] Comment on above: Performed at: [place] [id number] Director: Savage Vaughan PhD, Phone: [phone] Specific gravity Auto test s trip (U) [Rel density]on 12-25-2023 Specific gravity (U) [Rel density] CLEAR CLEAR [facility] Urine bacteria detection by automated methodon 12-25-2023 Bacteria Auto Ql (U) TRACE #/HPF NONE SEEN [facility] Urine glucose measurement by test strip (mass/volume)on 12-25-2023 Glucose Test strip (U) [Mass/Vol] Negative NEGATIVE [facility] Urine hemoglobin detection b y automated test stripon 12-25-2023 Hemoglobin Auto test strip Ql (U) MODERATE NEGATIVE [facility] Urine nitrite detection by a utomated test stripon 12-25-2023 Nitrite Auto test strip Ql (U) SMALL NEGATIVE [facility] Nitrite Auto test strip Ql (U) Negative NEGATIVE [facility] Urine sediment crystal ident ification by light microscopyon 12-25-2023 Crystals LM Nom (Urine sed) None Seen #/HPF None Seen [facility] Urine sediment leukocyte cou nt by microscopy (number/high power field)on 12-25-2023 WBC LM.HPF (Urine sed) [#/Area] 5-10 #/HPF NONE SEEN [facility] Urobilinogen Auto test strip (U) [Mass/Vol]on 12-25-2023 Urobilinogen Qn (U) 0.2 {Lora'U}/dL 0.2-1.0 [facility] pH Auto test strip (U)on pH (U) 5.5 [pH] 5.0-9.0 [facility] XR ankle LT min 3V*on 2022 XR ankle LT min 3V* [facility] [employer] Other XR ankle LT min 3V* [facility] [employer] Other XR ankle LT min 3V* [address] [place] [address] [employer] Other XR ankle LT min 3V* [place] [address] [employer] [facility] [employer] Other XR ankle LT min 3V* XRay Report [employer] Other XR ankle LT min 3V* Signed [employer] Other XR ankle LT min 3V* Patient: Bashir Coats MR#: [id number] [place] [employer] Other XR ankle LT min 3V* : 1955 Acct:[id number] [employer] Other XR ankle LT min 3V* Age/Sex: 68 / F ADM Date: 06/07/23 [employer] Other XR ankle LT min 3V* Loc: XDUCLY Room: Type: REG CLI [employer] Other XR ankle LT min 3V* Attending Dr: Chiara KINGSTON [employer] Other XR ankle LT min 3V* Copies to: VASHTI Carter [employer] Other XR ankle LT min 3V* Ordering Provider: VASHTI Carter [employer] Other XR ankle LT min 3V* Date of Service: 06/07/23 [employer] Other XR ankle LT min 3V* XR/XR ankle LT min 3V*: LEFT ANKLE PAIN [employer] Other XR ankle LT min 3V* LEFT ANKLE - 3 views [employer] Other XR ankle LT min 3V* CLINICAL HISTORY: Left medial ankle pain with swelling and tingling and burning for one month. No [employer] Other XR ankle LT min 3V* known trauma. No rt [employer] Other XR ankle LT min 3V* COMPARISON: None [employer] Other XR ankle LT min 3V* FINDINGS: [employer] Other XR ankle LT min 3V* Soft tissue swelling is noted. Ankle mortise appears intact with mild degenerative change. No acute [employer] Other XR ankle LT min 3V* bony process. [employer]. [employer] Other XR ankle LT min 3V* XR/XR ankle LT min 3V* [employer] Other XR ankle LT min 3V* IMPRESSION: [employer] Other XR ankle LT min 3V* SOFT TISSUE SWELLING WITHOUT ACUTE BONY PROCESS. DEGENERATIVE CHANGE. [employer] Other XR ankle LT min 3V* Impression dictated by: Tanner Jarquin Jr., D.O.06/07/2023 1:28 PM [employer] Other XR ankle LT min 3V* Dictation Location: [place] [address] [employer] Other XR ankle LT min 3V* Transcribed By: PWS 06/07/23 1328 [employer] Other XR ankle LT min 3V* Dictated By: Tanner Jarquin Jr, DO 06/07/23 1327 [employer] Other XR ankle LT min 3V* Signed By: [employer] Other XR ankle LT min 3V* 06/07/23 1328 No rt [employer] Other C3 and C4 COMPLEMENTon 02-10 Complement C3, Serum 141 mg/dL Normal 82-167 [facility] Comment on above: Performed By: #### C SUITE #### [facility] [address] [place] [address] [address] Eboni Smith Complement C4, Serum 24 mg/dL Normal 12-38 [facility] Comment on above: Performed By: #### C SUITE #### [facility] [address] [place] [address] [address] Eboni Smith COMPLEMENT TOTAL (CH50)on Complement, Total (CH50) >60 Normal >41 [facility] Comment on above: Result Comment: [...] values. Performed By: #### C H50T #### [facility] [address] [place] [address] [address] Eboni Smith CBC AUTO DIFFon 02-08-2023 BASO # 0.0 103/ul Normal 0.0-0.1 [facility] Comment on above: Performed By: #### C BC #### [facility] [address] [place] [address] Dr. Eboni Smith Basophils/100 WBC (Bld) 0.4 % Normal 0.2-2.0 [facility] Comment on above: Performed By: #### C BC #### [facility] [address] [place] [address] Dr. Eboni Smith EO # 0.2 103/ul Normal 0.0-0.7 [facility] Comment on above: Performed By: #### C BC #### [facility] [address] [place] [address] Dr. Eboni Smith Eosinophils/100 WBC (Bld) 1.6 % Normal 0.9-7.0 [facility] Comment on above: Performed By: #### C BC #### [facility] [address] [place] [address] Dr. Eboni Smith Erythrocyte distribution width (RBC) [Ratio] 14.6 % Normal 11.0-15.0 [facility] Comment on above: Performed By: #### C BC #### [facility] [address] [place] [address] Dr. Eboni Smith Hematocrit (Bld) [Volume fraction] 40.2 % Normal 36.0-48.0 [facility] Comment on above: Performed By: #### C BC #### [facility] [address] [place] [address] Dr. Eboni Smith Hemoglobin (Bld) [Mass/Vol] 12.7 g/dL Normal 12.0-16.0 [facility] Comment on above: Performed By: #### C BC #### [facility] [address] [place] [address] Dr. Eboni Smith IG # 0.06 10e3/ul Critically high 0.00-0.03 [facility] Comment on above: Performed By: #### C BC #### [facility] [address] [place] [address] Dr. Eboni Smith IG % 0.6 % Critically high 0.0-0.5 [facility] Comment on above: Performed By: #### C BC #### [facility] [address] [place] [address] Dr. Eboni Smith LYMPH # 3.4 103/ul Normal 1.2-3.8 [facility] Comment on above: Performed By: #### C BC #### [facility] [address] [place] [address] Dr. Eboni Smith Lymphocytes/100 WBC (Bld) 36.6 % Normal 20.5-60.0 [facility] Comment on above: Performed By: #### C BC #### [facility] [address] [place] [address] Dr. Eboni Smith MANUAL DIFF REQ NO Normal [facility] Comment on above: Performed By: #### C BC #### [facility] [address] [place] [address] Dr. Eboni Smith MCH (RBC) [Entitic mass] 28.6 pg Normal 26.7-34.0 [facility] Comment on above: Performed By: #### C BC #### [facility] [address] [place] [address] Dr. Eboni Smith MCHC (RBC) [Mass/Vol] 31.6 g/dL Normal 29.9-35.2 [facility] Comment on above: Performed By: #### C BC #### [facility] [address] [place] [address] Dr. Eboni Smith MCV (RBC) [Entitic vol] 90.5 fL Normal 81.0-99.0 [facility] Comment on above: Performed By: #### C BC #### [facility] [address] [place] [address] Dr. Eboni Smith MONO # 0.8 103/ul Normal 0.3-0.8 [facility] Comment on above: Performed By: #### C BC #### [facility] [address] [place] [address] Dr. Eboni Smith Monocytes/100 WBC (Bld) 8.2 % Normal 1.7-12.0 [facility] Comment on above: Performed By: #### C BC #### [facility] [address] [place] [address] Dr. Eboni Smith NEUT # 4.9 103/ul Normal 1.4-6.5 [facility] Comment on above: Performed By: #### C BC #### [facility] [address] [place] [address] Dr. Eboni Smith Neutrophils/100 WBC (Bld) 52.6 % Normal 43.0-75.0 [facility] Comment on above: Performed By: #### C BC #### [facility] [address] [place] [address] Dr. Eboni Smith Platelet mean volume (Bld) [Entitic vol] 8.5 fL Critically low 9.5-13.5 [facility] Comment on above: Performed By: #### C BC #### [facility] [address] [place] [address] Dr. Eboni Smith PLT 272 103/ul Normal 150-450 [facility] Comment on above: Performed By: #### C BC #### [facility] [address] [place] [address] Dr. Eboni Smith RBC 4.44 106/ul Normal 4.20-5.40 [facility] Comment on above: Performed By: #### C BC #### [facility] [address] [place] [address] Dr. Eboni Smith WBC 9.4 103/ul Normal 4.0-11.0 [facility] Comment on above: Performed By: #### C BC #### [facility] [address] [place] [address] Dr. Eboni Smith PROF 14(COMP METB)on 023 Albumin [Mass/Vol] 3.2 g/dL Critically low 3.4-5.0 [facility] Comment on above: Performed By: #### C MP #### [facility] [address] [place] [address] Dr. Eboni Smith Albumin/Globulin [Mass ratio] 0.9 {ratio} Normal [facility] Comment on above: Performed By: #### C MP #### [facility] [address] [place] [address] [address] Eboni Smith ALP [Catalytic activity/Vol] 85 U/L Normal 46-116 [facility] Comment on above: Performed By: #### C MP #### [facility] [address] [place] [address] [address] Eboni Smith ALT [Catalytic activity/Vol] 22 U/L Normal 14-59 [facility] Comment on above: Performed By: #### C MP #### [facility] [address] [place] [address] [address] Eboni Smith Anion gap [Moles/Vol] 10.8 mmol/L Normal [facility] Comment on above: Performed By: #### C MP #### [facility] [address] [place] [address] Dr. Eboni Smith AST [Catalytic activity/Vol] 16 U/L Normal 15-37 [facility] Comment on above: Performed By: #### C MP #### [facility] [address] [place] [address] Dr. Eboni Smith Bilirubin [Mass/Vol] 0.2 mg/dL Normal 0.2-1.0 [facility] Comment on above: Performed By: #### C MP #### [facility] [address] [place] [address] [address] Eboni Smith Calcium [Mass/Vol] 8.9 mg/dL Normal 8.5-10.1 [facility] Comment on above: Performed By: #### C MP #### [facility] [address] [place] [address] [address] Eboni Smith Chloride [Moles/Vol] 106 mmol/L Normal 98-107 [facility] Comment on above: Performed By: #### C MP #### [facility] [address] [place] [address] Dr. Eboni Smith CO2 [Moles/Vol] 28.2 mmol/L Normal 21.0-32.0 [facility] Comment on above: Performed By: #### C MP #### [facility] [address] [place] [address] [address] Eboni Smith Creatinine [Mass/Vol] 0.87 mg/dL Normal 0.55-1.02 [facility] Comment on above: Performed By: #### C MP #### [facility] [address] [place] [address] [address] Eboni Smith EGFR-AF HONDURAN >60 Normal >=60 [facility] Comment on above: Performed By: #### C MP #### [facility] [address] [place] [address] [address] Eboni Smith EGFR-NON AF HONDURAN >60 Normal >=60 [facility] Comment on above: Performed By: #### C MP #### [facility] [address] [place] [address] [address] Eboni Smith Globulin (S) [Mass/Vol] 3.5 g/dL Normal [facility] Comment on above: Performed By: #### C MP #### [facility] [address] [place] [address] [address] Eboni Smith Glucose [Mass/Vol] 93 mg/dL Normal 74-106 [facility] Comment on above: Performed By: #### C MP #### [facility] [address] [place] [address] Dr. Eboni Smith Potassium [Moles/Vol] 4.0 mmol/L Normal 3.5-5.1 [facility] Comment on above: Performed By: #### C MP #### [facility] [address] [place] [address] [address] Eboni Smith Protein [Mass/Vol] 6.7 g/dL Normal 6.4-8.2 [facility] Comment on above: Performed By: #### C MP #### [facility] [address] [place] [address] Dr. Eboni Smith Sodium [Moles/Vol] 141 mmol/L Normal 136-145 [facility] Comment on above: Performed By: #### C MP #### [facility] [address] [place] [address] Dr. Eboni Smith Urea nitrogen [Mass/Vol] 18.0 mg/dL Normal 7.0-18.0 [facility] Comment on above: Performed By: #### C MP #### [facility] [address] [place] [address] Dr. Eboni Smith Urea nitrogen/Creatinine [Mass ratio] 20.7 mg/mg Normal [facility] Comment on above: Performed By: #### C MP #### [facility] [address] [place] [address] Dr. Eboni Smith [facility] SED [facility]ATE 22 mm/hr Normal <=30 [facility] Comment on above: Performed By: #### C SUITE #### [facility] [address] [place] [address] Dr. Eboni Smith UA RANDOM W/MICROSCOPICon BACTERIA TRACE Abnormal NONE SEEN [facility] Comment on above: Performed By: #### C BC #### [facility] [address] [place] [address] Dr. Eboni Smith Bilirubin Ql (U) Negative Normal NEGATIVE [facility] Comment on above: Performed By: #### C BC #### [facility] [address] [place] [address] Dr. Eboni Smith CAST NONE SEEN Normal NONE SEEN [facility] Comment on above: Performed By: #### C BC #### [facility] [address] [place] [address] Dr. Eboni Smith Clarity (U) SL CLOUDY Abnormal CLEAR [facility] Comment on above: Performed By: #### C BC #### [facility] [address] [place] [address] Dr. Eboni Smith Color (U) LT. YELLOW Normal YELLOW [facility] Comment on above: Performed By: #### C BC #### [facility] [address] [place] [address] Dr. Eboni Smith Crystals LM Nom (Urine sed) NONE SEEN Normal NONE SEEN [facility] Comment on above: Performed By: #### C BC #### [facility] [address] [place] [address] Dr. Eboni Smith Epithelial cells LM Ql (Urine sed) FEW Abnormal NONE SEEN /RARE [facility] Comment on above: Performed By: #### C BC #### [facility] [address] [place] [address] Dr. Eboni Smith Glucose Ql (U) Negative Normal NEGATIVE [facility] Comment on above: Performed By: #### C BC #### [facility] [address] [place] [address] Dr. Eboni Smith Hemoglobin Ql (U) TRACE-INTACT Abnormal NEGATIVE [facility] Comment on above: Performed By: #### C BC #### [facility] [address] [place] [address] Dr. Eboni Smith Ketones Ql (U) Negative Normal NEGATIVE [facility] Comment on above: Performed By: #### C BC #### [facility] [address] [place] [address] Dr. Eboni Smith LEUKOCYTES SMALL Abnormal NEGATIVE [facility] Comment on above: Performed By: #### C BC #### [facility] [address] [place] [address] Dr. Eboni Smith MUCOUS NONE SEEN Normal NONE SEEN [facility] Comment on above: Performed By: #### C BC #### [facility] [address] [place] [address] Dr. Eboni Smith Nitrite Ql (U) Negative Normal NEGATIVE [facility] Comment on above: Performed By: #### C BC #### [facility] [address] [place] [address] Dr. Eboni Smith pH (U) 5.5 [pH] Normal 5-9 [facility] Comment on above: Performed By: #### C BC #### [facility] [address] [place] [address] Dr. Eboni Smith RBC 0-2 Normal 0-2 [facility] Comment on above: Performed By: #### C BC #### [facility] [address] [place] [address] Dr. Eboni Smith SPEC GRAVITY 1.005 Normal 1.005-<=1.02 5 [facility] Comment on above: Performed By: #### C BC #### [facility] [address] [place] [address] [address] Eboni Smith UA PROTEIN Negative Normal NEGATIVE/ TRACE [facility] Comment on above: Performed By: #### C BC #### [facility] [address] [place] [address] [address] Eboni mSith Urobilinogen Qn (U) 0.2 {Lora'U}/dL Normal 0.2 - 1. 0 [facility] Comment on above: Performed By: #### C BC #### [facility] [address] [place] [address] [address] Eboni Smith WBC 2-5 Abnormal NONE SEEN [facility] Comment on above: Performed By: #### C BC #### [facility] [address] [place] [address] [address] Eboni Smith XR shoulder RT min 2V*on XR shoulder RT min 2V* [facility] [employer] Other XR shoulder RT min 2V* [facility] [employer] Other XR shoulder RT min 2V* [address] [place] [address] [employer] [facility] [employer] Other XR shoulder RT min 2V* [place] [address] [employer] Other XR shoulder RT min 2V* XRay Report [employer] Other XR shoulder RT min 2V* Signed [employer] Other XR shoulder RT min 2V* Patient: Bashir Coats MR#: [id number] [employer] Other XR shoulder RT min 2V* : 1955 Acct:[id number] [employer] Other XR shoulder RT min 2V* Age/Sex: 67 / F ADM Date: 12/16/22 [employer] Other XR shoulder RT min 2V* Loc: XDUCLY Room: Type: [facility] [employer] Other XR shoulder RT min 2V* Attending Dr: Chiara KINGSTON [employer] Other XR shoulder RT min 2V* Copies to: VASHTI Carter [employer] Other XR shoulder RT min 2V* Ordering Provider: VASHTI Carter [employer] Other XR shoulder RT min 2V* Date of Service: 12/16/22 [employer] Other XR shoulder RT min 2V* XR/XR elbow RT min 3V*: Right elbow pain;Acute pain of right shoulder [employer] Other XR shoulder RT min 2V* ([id number]) XR/XR shoulder RT min 2V*: Right elbow pain;Acute pain of right shoulder [employer] Other XR shoulder RT min 2V* RIGHT ELBOW - [employer] views [employer] Other XR shoulder RT min 2V* CLINICAL HISTORY: Right elbow and shoulder pain status post fall 2 days ago. [employer] Other XR shoulder RT min 2V* COMPARISON: None [employer] Other XR shoulder RT min 2V* FINDINGS: [employer] Other XR shoulder RT min 2V* Right shoulder: Mild degenerative changes of the AC and glenohumeral joints without acute bony [employer] Other XR shoulder RT min 2V* process. [employer] Other XR shoulder RT min 2V* Right elbow: Soft tissue swelling. No elbow joint effusion. No acute bony process. Mild spurring [employer] Other XR shoulder RT min 2V* along the epicondyles. [employer] Other XR shoulder RT min 2V* XR/XR elbow RT min 3V* [employer] Other XR shoulder RT min 2V* IMPRESSION: [employer] Other XR shoulder RT min 2V* NO ACUTE BONY PROCESS. [employer] Other XR shoulder RT min 2V* Impression dictated by: Tanner Jarquin Jr., D.O.12/16/2022 2:46 PM [employer] Other XR shoulder RT min 2V* Dictation Location: [place] [address] [employer] Other XR shoulder RT min 2V* Transcribed By: COLTON 12/16/22 [facility] [employer] Other XR shoulder RT min 2V* Dictated By: Tanner Jarquin Jr, DO 12/16/22 [facility] [employer] Other XR shoulder RT min 2V* Signed By: [employer] Other XR shoulder RT min 2V* 12/16/22 [facility] [employer] Other C3 and C4 COMPLEMENTon 09-29 Complement C3, Serum 118 mg/dL Normal 82-167 [facility] Comment on above: Performed By: #### C BC #### [facility] [address] [place] [address] [address] Eboni Smith Complement C4, Serum 25 mg/dL Normal 12-38 [facility] Comment on above: Performed By: #### C BC #### [facility] [id number] Eboni Smith COMPLEMENT TOTAL (CH50)on Complement, Total (CH50) >60 Normal >41 [facility] Comment on above: Result Comment: [...] values. Performed By: #### C SUITE #### [facility] [address] [place] [address] Dr. Eboni Smith CBC AUTO DIFFon 09-28-2022 BASO # 0.0 103/ul Normal 0.0-0.1 [facility] Comment on above: Performed By: #### C BC #### [facility] [address] [place] [address] Dr. Eboni Smith Basophils/100 WBC (Bld) 0.6 % Normal 0.2-2.0 [facility] Comment on above: Performed By: #### C BC #### [facility] [address] [place] [address] Dr. Eboni Smith EO # 0.2 103/ul Normal 0.0-0.7 [facility] Comment on above: Performed By: #### C BC #### [facility] [address] [place] [address] Dr. Eboni Smith Eosinophils/100 WBC (Bld) 2.3 % Normal 0.9-7.0 [facility] Comment on above: Performed By: #### C BC #### [facility] [address] [place] [address] Dr. Eboni Smith Erythrocyte distribution width (RBC) [Ratio] 13.8 % Normal 11.0-15.0 [facility] Comment on above: Performed By: #### C BC #### [facility] [address] [place] [address] Dr. Eboni Smith Hematocrit (Bld) [Volume fraction] 39.7 % Normal 36.0-48.0 [facility] Comment on above: Performed By: #### C BC #### [facility] [address] [place] [address] Dr. Eboni Smith Hemoglobin (Bld) [Mass/Vol] 12.7 g/dL Normal 12.0-16.0 [facility] Comment on above: Performed By: #### C BC #### [facility] [address] [place] [address] Dr. Eboni Smith IG # 0.02 10e3/ul Normal 0.00-0.03 [facility] Comment on above: Performed By: #### C BC #### [facility] [address] [place] [address] Dr. Eboni Smith IG % 0.3 % Normal 0.0-0.5 [facility] Comment on above: Performed By: #### C BC #### [facility] [address] [place] [address] Dr. Eboni Smith LYMPH # 2.1 103/ul Normal 1.2-3.8 [facility] Comment on above: Performed By: #### C BC #### [facility] [address] [place] [address] Dr. Eboni Smith Lymphocytes/100 WBC (Bld) 31.2 % Normal 20.5-60.0 [facility] Comment on above: Performed By: #### C BC #### [facility] [address] [place] [address] Dr. Eboni Smith MANUAL DIFF REQ NO Normal [place] Comment on above: Performed By: #### C BC #### [facility] [address] [place] [address] Dr. Eboni Smith MCH (RBC) [Entitic mass] 29.3 pg Normal 26.7-34.0 [facility] Comment on above: Performed By: #### C BC #### [facility] [address] [place] [address] Dr. Eboni Smith MCHC (RBC) [Mass/Vol] 32.0 g/dL Normal 29.9-35.2 [facility] Comment on above: Performed By: #### C BC #### [facility] [address] [place] [address] Dr. Eboni Smith MCV (RBC) [Entitic vol] 91.5 fL Normal 81.0-99.0 [facility] Comment on above: Performed By: #### C BC #### [facility] [address] [place] [address] Dr. Eboni Smith MONO # 0.5 103/ul Normal 0.3-0.8 [facility] Comment on above: Performed By: #### C BC #### [facility] [address] [place] [address] Dr. Eboni Smith Monocytes/100 WBC (Bld) 7.3 % Normal 1.7-12.0 [facility] Comment on above: Performed By: #### C BC #### [facility] [address] [place] [address] Dr. Eboni Smith NEUT # 4.0 103/ul Normal 1.4-6.5 [facility] Comment on above: Performed By: #### C BC #### [facility] [address] [place] [address] Dr. Eboni Smith Neutrophils/100 WBC (Bld) 58.3 % Normal 43.0-75.0 [facility] Comment on above: Performed By: #### C BC #### [facility] [address] [place] [address] Dr. Eboni Smith Platelet mean volume (Bld) [Entitic vol] 8.5 fL Critically low 9.5-13.5 [facility] Comment on above: Performed By: #### C BC #### [facility] [address] [place] [address] Dr. Eboni Smith PLT 200 103/ul Normal 150-450 [facility] Comment on above: Performed By: #### C BC #### [facility] [address] [place] [address] Dr. Eboni Smith RBC 4.34 106/ul Normal 4.20-5.40 [facility] Comment on above: Performed By: #### C BC #### [facility] [address] [place] [address] Dr. Eboni Smith WBC 6.9 103/ul Normal 4.0-11.0 [facility] Comment on above: Performed By: #### C BC #### [facility] [address] [place] [address] Dr. Eboni Smith PROF 14(COMP METB)on 09-28- 022 Albumin [Mass/Vol] 3.4 g/dL Normal 3.4-5.0 [facility] Comment on above: Performed By: #### C BC #### [facility] [address] [place] [address] Dr. Eboni Smith Albumin/Globulin [Mass ratio] 1.0 {ratio} Normal [facility] Comment on above: Performed By: #### C BC #### [facility] [address] [place] [address] Dr. Eboni Smith ALP [Catalytic activity/Vol] 75 U/L Normal 46-116 [facility] Comment on above: Performed By: #### C BC #### [facility] [address] [place] [address] Dr. Eboni Smith ALT [Catalytic activity/Vol] 16 U/L Normal 14-59 [facility] Comment on above: Performed By: #### C BC #### [facility] [address] [place] [address] Dr. Eboni Smith Anion gap [Moles/Vol] 10.2 mmol/L Normal [facility] Comment on above: Performed By: #### C BC #### [facility] [address] [place] [address] Dr. Eboni Smith AST [Catalytic activity/Vol] 18 U/L Normal 15-37 [facility] Comment on above: Performed By: #### C BC #### [facility] [address] [place] [address] Dr. Eboni Smith Bilirubin [Mass/Vol] 0.3 mg/dL Normal 0.2-1.0 [facility] Comment on above: Performed By: #### C BC #### [facility] [address] [place] [address] Dr. Eboni Smith Calcium [Mass/Vol] 9.3 mg/dL Normal 8.5-10.1 [facility] Comment on above: Performed By: #### C BC #### [facility] [address] [place] [address] Dr. Eboni Smith Chloride [Moles/Vol] 105 mmol/L Normal 98-107 [facility] Comment on above: Performed By: #### C BC #### [facility] [address] [place] [address] Dr. Eboni Smith CO2 [Moles/Vol] 29.1 mmol/L Normal 21.0-32.0 [facility] Comment on above: Performed By: #### C BC #### [facility] [address] [address] [address] Eboni Smith Creatinine [Mass/Vol] 0.87 mg/dL Normal 0.55-1.02 [facility] Comment on above: Performed By: #### C BC #### [facility] [address] [place] [address] Dr. Eboni Smith EGFR-AF HONDURAN >60 Normal >=60 [facility] Comment on above: Performed By: #### C BC #### [facility] [address] [place] [address] Dr. Eboni Smith EGFR-NON AF HONDURAN >60 Normal >=60 [facility] Comment on above: Performed By: #### C BC #### [facility] [address] [address] [address] Eboni Smith Globulin (S) [Mass/Vol] 3.4 g/dL Normal [facility] Comment on above: Performed By: #### C BC #### [facility] [address] [place] [address] Dr. Eboni Smith Glucose [Mass/Vol] 82 mg/dL Normal 74-106 [facility] Comment on above: Performed By: #### C BC #### [facility] [address] [place] [address] Dr. Eboni Smith Potassium [Moles/Vol] 4.3 mmol/L Normal 3.5-5.1 [facility] Comment on above: Performed By: #### C BC #### [facility] [address] [place] [address] Dr. Eboni Smith Protein [Mass/Vol] 6.8 g/dL Normal 6.4-8.2 [facility] Comment on above: Performed By: #### C BC #### [facility] [address] [place] [address] Dr. Eboni Smith Sodium [Moles/Vol] 140 mmol/L Normal 136-145 [facility] Comment on above: Performed By: #### C BC #### [facility] [address] [place] [address] Dr. Eboni Smith Urea nitrogen [Mass/Vol] 16.0 mg/dL Normal 7.0-18.0 [facility] Comment on above: Performed By: #### C BC #### [facility] [address] [place] [address] Dr. Eboni Smith Urea nitrogen/Creatinine [Mass ratio] 18.4 mg/mg Normal [facility] Comment on above: Performed By: #### C BC #### [facility] [address] [place] [address] Dr. Eboni Smith SED RATE [facility] 2021 SED RATE 17 mm/hr Normal <=30 [facility] Comment on above: Performed By: #### C BC #### [facility] [address] [place] [address] Dr. Eboni Smith UA RANDOM W/MICROSCOPICon BACTERIA TRACE Abnormal NONE SEEN [facility] Comment on above: Performed By: #### C BC #### [facility] [address] [place] [address] Dr. Eboni Smith Bilirubin Ql (U) Negative Normal NEGATIVE [facility] Comment on above: Performed By: #### C BC #### [facility] [address] [place] [address] Dr. Eboni Smith CAST NONE SEEN Normal NONE SEEN [facility] Comment on above: Performed By: #### C BC #### [facility] [address] [place] [address] Dr. Eboni Smith Clarity (U) CLEAR Normal CLEAR [facility] Comment on above: Performed By: #### C BC #### [facility] [address] [place] [address] Dr. Eboni Smith Color (U) LT. YELLOW Normal YELLOW [facility] Comment on above: Performed By: #### C BC #### [facility] [address] [address] [address] Eboni Smith Crystals LM Nom (Urine sed) NONE SEEN Normal NONE SEEN [facility] Comment on above: Performed By: #### C BC #### [facility] [address] [address] [address] Eboni Smith Epithelial cells LM Ql (Urine sed) FEW Abnormal NONE SEEN /RARE [facility] Comment on above: Performed By: #### C BC #### [facility] [address] [address] [address] Eboni Smith Glucose Ql (U) Negative Normal NEGATIVE [facility] Comment on above: Performed By: #### C BC #### [facility] [address] [place] [address] Dr. Eboni Smith Hemoglobin Ql (U) MODERATE Abnormal NEGATIVE [facility] Comment on above: Performed By: #### C BC #### [facility] [address] [place] [address] Dr. Eboni Smith Ketones Ql (U) Negative Normal NEGATIVE [facility] Comment on above: Performed By: #### C BC #### [facility] [address] [place] [address] Dr. Eboni Smith LEUKOCYTES TRACE Abnormal NEGATIVE [facility] Comment on above: Performed By: #### C BC #### [facility] [address] [place] [address] Dr. Eboni Smith MUCOUS NONE SEEN Normal NONE SEEN [facility] Comment on above: Performed By: #### C BC #### [facility] [address] [place] [address] Dr. Eboni Smith Nitrite Ql (U) Negative Normal NEGATIVE [facility] Comment on above: Performed By: #### C BC #### [facility] [address] [place] [address] Dr. Eboni Smith pH (U) 5.0 [pH] Normal 5-9 [facility] Comment on above: Performed By: #### C BC #### [facility] [address] [place] [address] Dr. Eboni Smith RBC 5-10 Abnormal 0-2 [facility] Comment on above: Performed By: #### C BC #### [facility] [address] [place] [address] Dr. Eboni Smith SPEC GRAVITY 1.010 Normal 1.005-<=1.02 5 [facility] Comment on above: Performed By: #### C BC #### [facility] [address] [place] [address] Dr. bEoni Smith UA PROTEIN Negative Normal NEGATIVE/ TRACE [facility] Comment on above: Performed By: #### C BC #### [facility] [address] [place] [address] Dr. Eboni Smith Urobilinogen Qn (U) 0.2 {Lora'U}/dL Normal 0.2 - 1. 0 [facility] Comment on above: Performed By: #### C BC #### [facility] [address] [place] [address] Dr. Eboni Smith WBC 5-10 Abnormal NONE SEEN [facility] Comment on above: Performed By: #### C BC #### [facility] [address] [place] [address] Dr. Eboni Smith COVID-19 SOFIAOrdered By: Whitney Neely on 09-18-2022 SARS-CoV+SARS-CoV-2 (COVID-19) Ag IA.rapid Ql (Resp) Negative Negative [facility] Comment on above: This is a duplicate Lona SARS Antigen (KARY) result to be used for statistical tracking purpose only. CT CHEST HI RESOLUTIONon CT CHEST HI RESOLUTION EXAMINATION: CT CHEST HI RESOLUTION HISTORY: Fibrosis of lung COMPARISON: No relevant comparison 1ailable. TECHNIQUE: Axial images were obtained at 10 [...] by: EULALIA MORALES Date: 2022-09-18 15:20 Normal [facility] ECHOCARDIO M/2D COMPLETEon 1 11-19-2021 ECHOCARDIO M/2D COMPLETE Patient: BASHIR COATS Exam Date: 09/18/2022 : 1955 Gender:F Ordering : DR ANGELIC VICK M.D. Admission #: [id number] Family : DR STEVE ARMENDARIZ D.O. Order #: [id number] CLICK HERE TO VIEW EXAM ECHOCARDIOGRAM REPORT [...] M.D. on 09/20/2022 at 13:59 Normal [facility] HEMOGLOBINon 09-18-2022 Hemoglobin (Bld) [Mass/Vol] 12.4 g/dL Normal 12.0-16.0 [facility] Comment on above: Performed By: #### C SUITE #### [facility] [address] [address] [address] Eboni Smith No Panel InformationOrdered By: Alex Neely on 09-18-2022 SARS Antigen (LFIA) [facility] SARS Antigen (LFIA) [facility] COMPLEMENT TOTAL (CH50)on Complement, Total (CH50) 59 U/mL Normal >41 [facility] Comment on above: Result Comment: [...] values. Performed By: #### C H50T #### [facility] [address] [address] [address] Eboni Smith C3 and C4 COMPLEMENTon 06-10 Complement C3, Serum 118 mg/dL Normal 82-167 [facility] Comment on above: Performed By: #### C SUITE #### [facility] [address] [address] [address] Eboni Smith Complement C4, Serum 22 mg/dL Normal 12-38 [facility] Comment on above: Performed By: #### C SUITE #### [facility] [address] [address] [address] Eboni Smith CBC AUTO DIFFon 06-09-2022 BASO # 0.0 103/ul Normal 0.0-0.1 [facility] Comment on above: Performed By: #### C BC #### [facility] [address] [place] [address] Dr. Eboni Smith Basophils/100 WBC (Bld) 0.4 % Normal 0.2-2.0 [facility] Comment on above: Performed By: #### C BC #### [facility] [address] [place] [address] Dr. Eboni Smith EO # 0.2 103/ul Normal 0.0-0.7 [facility] Comment on above: Performed By: #### C BC #### [facility] [address] [place] [address] Dr. Eboni Smith Eosinophils/100 WBC (Bld) 2.3 % Normal 0.9-7.0 [facility] Comment on above: Performed By: #### C BC #### [facility] [address] [place] [address] Dr. Eboni Smith Erythrocyte distribution width (RBC) [Ratio] 13.6 % Normal 11.0-15.0 [facility] Comment on above: Performed By: #### C BC #### [facility] [address] [place] [address] Dr. Eboni Smith Hematocrit (Bld) [Volume fraction] 40.7 % Normal 36.0-48.0 [facility] Comment on above: Performed By: #### C BC #### [facility] [address] [place] [address] Dr. Eboni Smith Hemoglobin (Bld) [Mass/Vol] 12.9 g/dL Normal 12.0-16.0 [facility] Comment on above: Performed By: #### C BC #### [facility] [address] [place] [address] Dr. Eboni Smith IG # 0.02 10e3/ul Normal 0.00-0.03 [facility] Comment on above: Performed By: #### C BC #### [facility] [address] [place] [address] Dr. Eboni Smith IG % 0.3 % Normal 0.0-0.5 [facility] Comment on above: Performed By: #### C BC #### [facility] [address] [place] [address] Dr. Eboni Smith LYMPH # 2.3 103/ul Normal 1.2-3.8 [facility] Comment on above: Performed By: #### C BC #### [facility] [address] [place] [address] Dr. Eboni Smith Lymphocytes/100 WBC (Bld) 33.6 % Normal 20.5-60.0 [facility] Comment on above: Performed By: #### C BC #### [facility] [address] [place] [address] Dr. Eboni Smith MANUAL DIFF REQ NO Normal [place] Comment on above: Performed By: #### C BC #### [facility] [address] [place] [address] Dr. Eboni Smith MCH (RBC) [Entitic mass] 29.5 pg Normal 26.7-34.0 [facility] Comment on above: Performed By: #### C BC #### [facility] [address] [place] [address] Dr. Eboni Smith MCHC (RBC) [Mass/Vol] 31.7 g/dL Normal 29.9-35.2 [facility] Comment on above: Performed By: #### C BC #### [facility] [address] [place] [address] Dr. Eboni Smith MCV (RBC) [Entitic vol] 92.9 fL Normal 81.0-99.0 [facility] Comment on above: Performed By: #### C BC #### [facility] [address] [place] [address] Dr. Eboni Smith MONO # 0.6 103/ul Normal 0.3-0.8 [facility] Comment on above: Performed By: #### C BC #### [facility] [address] [place] [address] Dr. Eboni Smith Monocytes/100 WBC (Bld) 8.1 % Normal 1.7-12.0 [facility] Comment on above: Performed By: #### C BC #### [facility] [address] [address] [address] Eboni Smith NEUT # 3.8 103/ul Normal 1.4-6.5 [facility] Comment on above: Performed By: #### C BC #### [facility] [address] [place] [address] Dr. Eboni Smith Neutrophils/100 WBC (Bld) 55.3 % Normal 43.0-75.0 [facility] Comment on above: Performed By: #### C BC #### [facility] [address] [place] [address] Dr. Eboni Smith Platelet mean volume (Bld) [Entitic vol] 8.8 fL Critically low 9.5-13.5 [facility] Comment on above: Performed By: #### C BC #### [facility] [address] [place] [address] Dr. Eboni Smith PLT 209 103/ul Normal 150-450 [facility] Comment on above: Performed By: #### C BC #### [facility] [address] [place] [address] Dr. Eboni Smith RBC 4.38 106/ul Normal 4.20-5.40 [facility] Comment on above: Performed By: #### C BC #### [facility] [address] [place] [address] Dr. Eboni Smith WBC 6.9 103/ul Normal 4.0-11.0 [facility] Comment on above: Performed By: #### C BC #### [facility] [address] [place] [address] Dr. Eboni Smith PROF 14(COMP METB)on 022 Albumin [Mass/Vol] 3.6 g/dL Normal 3.4-5.0 [facility] Comment on above: Performed By: #### C SUITE #### [facility] [address] [place] [address] Dr. Eboni Smith Albumin/Globulin [Mass ratio] 1.1 {ratio} Normal [facility] Comment on above: Performed By: #### C SUITE #### [facility] [address] [address] [address] Eboni Smith ALP [Catalytic activity/Vol] 78 U/L Normal 46-116 [facility] Comment on above: Performed By: #### C SUITE #### [facility] [address] [address] [address] Eboni Smith ALT [Catalytic activity/Vol] 19 U/L Normal 14-59 [facility] Comment on above: Performed By: #### C SUITE #### [facility] [address] [place] [address] Dr. Eboni Smith Anion gap [Moles/Vol] 10.4 mmol/L Normal [facility] Comment on above: Performed By: #### C SUITE #### [facility] [address] [place] [address] Dr. Eboni Smith AST [Catalytic activity/Vol] 18 U/L Normal 15-37 [facility] Comment on above: Performed By: #### C SUITE #### [facility] [address] [place] [address] Dr. Eboni Smith Bilirubin [Mass/Vol] 0.3 mg/dL Normal 0.2-1.0 [facility] Comment on above: Performed By: #### C SUITE #### [facility] [address] [place] [address] Dr. Eboni Smith Calcium [Mass/Vol] 8.9 mg/dL Normal 8.5-10.1 [facility] Comment on above: Performed By: #### C SUITE #### [facility] [address] [place] [address] Dr. Eboni Smith Chloride [Moles/Vol] 105 mmol/L Normal 98-107 [facility] Comment on above: Performed By: #### C SUITE #### [facility] [address] [place] [address] Dr. Eboni Smith CO2 [Moles/Vol] 28.8 mmol/L Normal 21.0-32.0 [facility] Comment on above: Performed By: #### C SUITE #### [facility] [address] [place] [address] Dr. Eboni Smith Creatinine [Mass/Vol] 0.88 mg/dL Normal 0.55-1.02 [facility] Comment on above: Performed By: #### C SUITE #### [facility] [address] [place] [address] Dr. Eboni Smith EGFR-AF HONDURAN >60 Normal >=60 [facility] Comment on above: Performed By: #### C SUITE #### [facility] [address] [address] [address] Eboni Smith EGFR-NON AF HONDURAN >60 Normal >=60 [facility] Comment on above: Performed By: #### C SUITE #### [facility] [address] [place] [address] Dr. Eboni Smith Globulin (S) [Mass/Vol] 3.3 g/dL Normal [facility] Comment on above: Performed By: #### C SUITE #### [facility] [address] [place] [address] Dr. Eboni Smith Glucose [Mass/Vol] 98 mg/dL Normal 74-106 [facility] Comment on above: Performed By: #### C SUITE #### [facility] [address] [place] [address] Dr. Eboni Smith Potassium [Moles/Vol] 4.2 mmol/L Normal 3.5-5.1 [facility] Comment on above: Performed By: #### C SUITE #### [facility] [address] [place] [address] Dr. Eboni Smith Protein [Mass/Vol] 6.9 g/dL Normal 6.4-8.2 [facility] Comment on above: Performed By: #### C SUITE #### [facility] [address] [place] [address] Dr. Eboni Smith Sodium [Moles/Vol] 140 mmol/L Normal 136-145 [facility] Comment on above: Performed By: #### C SUITE #### [facility] [address] [place] [address] Dr. Eboni Smith Urea nitrogen [Mass/Vol] 22.0 mg/dL Critically high 7.0-18.0 [facility] Comment on above: Performed By: #### C SUITE #### [facility] [address] [place] [address] Dr. Eboni Smith Urea nitrogen/Creatinine [Mass ratio] 25.0 mg/mg Normal [facility] Comment on above: Performed By: #### C SUITE #### [facility] [address] [place] [address] Dr. Eboni Smith SED RATE WESTERGREN 2021 SED RATE 21 mm/hr Normal <=30 [facility] Comment on above: Performed By: #### C SUITE #### [facility] [address] [place] [address] Dr. Eboni Smith UA RANDOM W/MICROSCOPICon BACTERIA NONE SEEN Normal NONE SEEN [facility] Comment on above: Performed By: #### U AMIC #### [facility] [address] [place] [address] Dr. Eboni Smith Bilirubin Ql (U) Negative Normal NEGATIVE [facility] Comment on above: Performed By: #### U AMIC #### [facility] [address] [place] [address] Dr. Eboni Smith CAST NONE SEEN Normal NONE SEEN [facility] Comment on above: Performed By: #### U AMIC #### [facility] [address] [place] [address] Dr. Eboni Smith Clarity (U) CLEAR Normal CLEAR [facility] Comment on above: Performed By: #### U AMIC #### [facility] [address] [place] [address] Dr. Eboni Smith Color (U) LT. YELLOW Normal YELLOW [facility] Comment on above: Performed By: #### U AMIC #### [facility] [address] [place] [address] Dr. Eboni Smith Crystals LM Nom (Urine sed) NONE SEEN Normal NONE SEEN [facility] Comment on above: Performed By: #### U AMIC #### [facility] [address] [place] [address] Dr. Eboni Smith Epithelial cells LM Ql (Urine sed) FEW Abnormal NONE SEEN /RARE [facility] Comment on above: Performed By: #### U AMIC #### [facility] [address] [address] [address] Eboni Smith Glucose Ql (U) Negative Normal NEGATIVE [facility] Comment on above: Performed By: #### U AMIC #### [facility] [address] [address] [address] Eboni Smith Hemoglobin Ql (U) SMALL Abnormal NEGATIVE [facility] Comment on above: Performed By: #### U AMIC #### [facility] [address] [address] [address] Eboni Smith Ketones Ql (U) Negative Normal NEGATIVE [facility] Comment on above: Performed By: #### U AMIC #### [facility] [address] [place] [address] Dr. Eboni Smith LEUKOCYTES TRACE Abnormal NEGATIVE [facility] Comment on above: Performed By: #### U AMIC #### [facility] [address] [address] [address] Eboni Smith MUCOUS NONE SEEN Normal NONE SEEN [facility] Comment on above: Performed By: #### U AMIC #### [facility] [address] [address] [address] Eboni Smith Nitrite Ql (U) Negative Normal NEGATIVE [facility] Comment on above: Performed By: #### U AMIC #### [facility] [address] [address] [address] Eboni Smith pH (U) 6.0 [pH] Normal 5-9 [facility] Comment on above: Performed By: #### U AMIC #### [facility] [address] [address] [address] Eboni Smith RBC 2-5 Abnormal 0-2 [facility] Comment on above: Performed By: #### U AMIC #### [facility] [address] [place] [address] Dr. Eboni Smith SPEC GRAVITY 1.010 Normal 1.005-<=1.02 5 [facility] Comment on above: Performed By: #### U AMIC #### [facility] [address] [address] [address] Eboni Smith UA PROTEIN Negative Normal NEGATIVE/ TRACE [facility] Comment on above: Performed By: #### U AMIC #### [facility] [address] [address] [address] Eboni Smith Urobilinogen Qn (U) 0.2 {Lora'U}/dL Normal 0.2 - 1. 0 [facility] Comment on above: Performed By: #### U AMIC #### [facility] [address] [address] [address] Eboni Smtih WBC 2-5 Abnormal NONE SEEN [facility] Comment on above: Performed By: #### U AMIC #### [facility] [address] [address] [address] Eboni Smith C3 and C4 COMPLEMENTon 03-01 Complement C3, Serum 110 mg/dL Normal 82-167 [facility] Comment on above: Performed By: #### C SUITE #### [facility] [address] [address] [address] Eboni Smith Complement C4, Serum 22 mg/dL Normal 12-38 [facility] Comment on above: Performed By: #### C SUITE #### [facility] [address] [address] [address] Eboni Smith COMPLEMENT TOTAL (CH50)on Complement, Total (CH50) >60 Normal >41 [facility] Comment on above: Result Comment: Age Male [...] values. Performed By: #### C BC #### [facility] [address] [address] [address] Eboni Smith CBC AUTO DIFFon 02-28-2022 BASO # 0.0 103/ul Normal 0.0-0.1 [facility] Comment on above: Performed By: #### C SUITE #### [facility] [address] [place] [address] Dr. Eboni Smith Basophils/100 WBC (Bld) 0.2 % Normal 0.2-2.0 [facility] Comment on above: Performed By: #### C SUITE #### [facility] [address] [place] [address] Dr. Eboni Smith EO # 0.1 103/ul Normal 0.0-0.7 [facility] Comment on above: Performed By: #### C SUITE #### [facility] [address] [place] [address] Dr. Eboni Smith Eosinophils/100 WBC (Bld) 1.5 % Normal 0.9-7.0 [facility] Comment on above: Performed By: #### C SUITE #### [facility] [address] [place] [address] Dr. Eboni Smith Erythrocyte distribution width (RBC) [Ratio] 14.6 % Normal 11.0-15.0 [facility] Comment on above: Performed By: #### C SUITE #### [facility] [address] [place] [address] Dr. Eboni Smith Hematocrit (Bld) [Volume fraction] 38.9 % Normal 36.0-48.0 [facility] Comment on above: Performed By: #### C SUITE #### [facility] [address] [place] [address] Dr. Eboni Smith Hemoglobin (Bld) [Mass/Vol] 12.4 g/dL Normal 12.0-16.0 [facility] Comment on above: Performed By: #### C SUITE #### [facility] [address] [place] [address] Dr. Eboni Smith IG # 0.02 10e3/ul Normal 0.00-0.03 [facility] Comment on above: Performed By: #### C SUITE #### [facility] [address] [place] [address] Dr. Eboni Smith IG % 0.2 % Normal 0.0-0.5 [facility] Comment on above: Performed By: #### C SUITE #### [facility] [address] [place] [address] Dr. Eboni Smith LYMPH # 2.3 103/ul Normal 1.2-3.8 [facility] Comment on above: Performed By: #### C SUITE #### [facility] [address] [place] [address] Dr. Eboni Smith Lymphocytes/100 WBC (Bld) 27.7 % Normal 20.5-60.0 [facility] Comment on above: Performed By: #### C SUITE #### [facility] [address] [place] [address] Dr. Eboni Smith MANUAL DIFF REQ NO Normal [place] Comment on above: Performed By: #### C SUITE #### [facility] [address] [place] [address] Dr. Eboni Smith MCH (RBC) [Entitic mass] 29.1 pg Normal 26.7-34.0 [facility] Comment on above: Performed By: #### C SUITE #### [facility] [address] [place] [address] Dr. Eboni Smith MCHC (RBC) [Mass/Vol] 31.9 g/dL Normal 29.9-35.2 [facility] Comment on above: Performed By: #### C SUITE #### [facility] [address] [place] [address] Dr. Eboni Smith MCV (RBC) [Entitic vol] 91.3 fL Normal 81.0-99.0 [facility] Comment on above: Performed By: #### C SUITE #### [facility] [address] [place] [address] Dr. Eboni Smith MONO # 0.6 103/ul Normal 0.3-0.8 [facility] Comment on above: Performed By: #### C SUITE #### [facility] [address] [place] [address] Dr. Eboni Smith Monocytes/100 WBC (Bld) 6.7 % Normal 1.7-12.0 [facility] Comment on above: Performed By: #### C SUITE #### [facility] [address] [address] [address] Eboni Smith NEUT # 5.3 103/ul Normal 1.4-6.5 [facility] Comment on above: Performed By: #### C SUITE #### [facility] [address] [address] [address] Eboni Smith Neutrophils/100 WBC (Bld) 63.7 % Normal 43.0-75.0 [facility] Comment on above: Performed By: #### C SUITE #### [facility] [address] [place] [address] Dr. Eboni Smith Platelet mean volume (Bld) [Entitic vol] 8.3 fL Critically low 9.5-13.5 [facility] Comment on above: Performed By: #### C SUITE #### [facility] [address] [place] [address] Dr. Eboni Smith PLT 185 103/ul Normal 150-450 [facility] Comment on above: Performed By: #### C SUITE #### [facility] [address] [place] [address] Dr. Eboni Smith RBC 4.26 106/ul Normal 4.20-5.40 [facility] Comment on above: Performed By: #### C SUITE #### [facility] [address] [place] [address] Dr. Eboni Smith WBC 8.2 103/ul Normal 4.0-11.0 [facility] Comment on above: Performed By: #### C SUITE #### [facility] [address] [place] [address] Dr. Eboni Smith PROF 14(COMP METB)on 022 Albumin [Mass/Vol] 3.5 g/dL Normal 3.4-5.0 [facility] Comment on above: Performed By: #### C SUITE #### [facility] [address] [place] [address] Dr. Eboni Smith Albumin/Globulin [Mass ratio] 1.0 {ratio} Normal [facility] Comment on above: Performed By: #### C SUITE #### [facility] [address] [address] [address] Eboni Smith ALP [Catalytic activity/Vol] 70 U/L Normal 46-116 [facility] Comment on above: Performed By: #### C SUITE #### [facility] [address] [place] [address] Dr. Eboni Smith ALT [Catalytic activity/Vol] 23 U/L Normal 14-59 [facility] Comment on above: Performed By: #### C SUITE #### [facility] [address] [address] [address] Eboni Smith Anion gap [Moles/Vol] 12.1 mmol/L Normal Th e [facility] Comment on above: Performed By: #### C SUITE #### [facility] [address] [place] [address] Dr. Eboni Smith AST [Catalytic activity/Vol] 10 U/L Critically low 15-37 [facility] Comment on above: Performed By: #### C SUITE #### [facility] [address] [place] [address] Dr. Eboni Smith Bilirubin [Mass/Vol] 0.3 mg/dL Normal 0.2-1.0 [facility] Comment on above: Performed By: #### C SUITE #### [facility] [address] [place] [address] Dr. Eboni Smith Calcium [Mass/Vol] 8.9 mg/dL Normal 8.5-10.1 [facility] Comment on above: Performed By: #### C SUITE #### [facility] [address] [place] [address] Dr. Eboni Smith Chloride [Moles/Vol] 104 mmol/L Normal 98-107 [facility] Comment on above: Performed By: #### C SUITE #### [facility] [address] [place] [address] Dr. Eboni Smith CO2 [Moles/Vol] 27.5 mmol/L Normal 21.0-32.0 [facility] Comment on above: Performed By: #### C SUITE #### [facility] [address] [place] [address] Dr. Eboni Smith Creatinine [Mass/Vol] 0.88 mg/dL Normal 0.55-1.02 [facility] Comment on above: Performed By: #### C SUITE #### [facility] [address] [address] [address] Eboni Smith EGFR-AF HONDURAN >60 Normal >=60 [facility] Comment on above: Performed By: #### C SUITE #### [facility] [address] [place] [address] Dr. Eboni Smith EGFR-NON AF HONDURAN >60 Normal >=60 [facility] Comment on above: Performed By: #### C SUITE #### [facility] [address] [place] [address] Dr. Eboni Smith Globulin (S) [Mass/Vol] 3.4 g/dL Normal [facility] Comment on above: Performed By: #### C SUITE #### [facility] [address] [place] [address] Dr. Eboni Smith Glucose [Mass/Vol] 105 mg/dL Normal 74-106 [facility] Comment on above: Performed By: #### C SUITE #### [facility] [address] [place] [address] Dr. Eboni Smith Potassium [Moles/Vol] 4.3 mmol/L Normal 3.5-5.1 [facility] Comment on above: Performed By: #### C SUITE #### [facility] [address] [place] [address] Dr. Eboni Smith Protein [Mass/Vol] 6.9 g/dL Normal 6.4-8.2 [facility] Comment on above: Performed By: #### C SUITE #### [facility] [address] [place] [address] Dr. Eboni Smith Sodium [Moles/Vol] 139 mmol/L Normal 136-145 [facility] Comment on above: Performed By: #### C SUITE #### [facility] [address] [place] [address] Dr. Eboni Smith Urea nitrogen [Mass/Vol] 26.0 mg/dL Critically high 7.0-18.0 [facility] Comment on above: Performed By: #### C SUITE #### [facility] [address] [place] [address] Dr. Eboni Smith Urea nitrogen/Creatinine [Mass ratio] 29.5 mg/mg Normal [facility] Comment on above: Performed By: #### C SUITE #### [facility] [address] [place] [address] Dr. Eboni Smith SED RATE WESTERGREN 2021 SED RATE 8 mm/hr Normal <=30 [facility] Comment on above: Performed By: #### C BC #### [facility] [address] [place] [address] Dr. Eboni Smith UA RANDOM W/MICROSCOPICon BACTERIA TRACE Abnormal NONE SEEN [facility] Comment on above: Performed By: #### C SUITE #### [facility] [address] [place] [address] Dr. Eboni Smith Bilirubin Ql (U) Negative Normal NEGATIVE [facility] Comment on above: Performed By: #### C SUITE #### [facility] [address] [place] [address] Dr. Eboni Smith CAST NONE SEEN Normal NONE SEEN [facility] Comment on above: Performed By: #### C SUITE #### [facility] [address] [place] [address] Dr. Eboni Smith Clarity (U) SL CLOUDY Abnormal CLEAR [facility] Comment on above: Performed By: #### C SUITE #### [facility] [address] [place] [address] Dr. Eboni Smith Color (U) LT. YELLOW Normal YELLOW [facility] Comment on above: Performed By: #### C SUITE #### [facility] [address] [place] [address] Dr. Eboni Smith Crystals LM Nom (Urine sed) NONE SEEN Normal NONE SEEN [facility] Comment on above: Performed By: #### C SUITE #### [facility] [address] [place] [address] Dr. Eboni Smith Epithelial cells LM Ql (Urine sed) RARE Normal NONE SEEN /RARE [facility] Comment on above: Performed By: #### C SUITE #### [facility] [address] [place] [address] Dr. Eboni Smith Glucose Ql (U) Negative Normal NEGATIVE [facility] Comment on above: Performed By: #### C SUITE #### [facility] [address] [place] [address] Dr. Eboni Smith Hemoglobin Ql (U) SMALL Abnormal NEGATIVE [facility] Comment on above: Performed By: #### C SUITE #### [facility] [address] [place] [address] Dr. Eboni Smith Ketones Ql (U) Negative Normal NEGATIVE [facility] Comment on above: Performed By: #### C SUITE #### [facility] [address] [place] [address] Dr. Eboni Smith LEUKOCYTES SMALL Abnormal NEGATIVE [facility] Comment on above: Performed By: #### C SUITE #### [facility] [address] [place] [address] Dr. Eboni Smith MUCOUS NONE SEEN Normal NONE SEEN [facility] Comment on above: Performed By: #### C SUITE #### [facility] [address] [place] [address] Dr. Eboni Smith Nitrite Ql (U) Negative Normal NEGATIVE [facility] Comment on above: Performed By: #### C SUITE #### [facility] [address] [place] [address] Dr. Eboni Smith pH (U) 5.0 [pH] Normal 5-9 [facility] Comment on above: Performed By: #### C SUITE #### [facility] [address] [place] [address] Dr. Eboni Smith RBC 0-2 Normal 0-2 [facility] Comment on above: Performed By: #### C SUITE #### [facility] [address] [place] [address] Dr. Eboni Smith SPEC GRAVITY 1.025 Normal 1.005-<=1.02 5 [facility] Comment on above: Performed By: #### C SUITE #### [facility] [address] [address] [address] bEoni Smith UA PROTEIN Negative Normal NEGATIVE/ TRACE [facility] Comment on above: Performed By: #### C SUITE #### [facility] [address] [address] [address] Eboni Smith Urobilinogen Qn (U) 0.2 {Lora'U}/dL Normal 0.2 - 1. 0 [facility] Comment on above: Performed By: #### C SUITE #### [facility] [address] [address] [address] Eboni Smith WBC 2-5 Abnormal NONE SEEN [facility] Comment on above: Performed By: #### C SUITE #### [facility] [address] [address] [address] Eboni Smith XR LSPINE 2_3 VIEWSon 2021 XR LSPINE 2_3 VIEWS EXAMINATION: XR LSPINE [...] by: EULALIA MORALES Date: 2022-02-28 16:24 Normal [facility] COVID-19 Positive/Negativeon 03-15-2021 SARS-CoV-2 (COVID-19) N gene TERRIE+probe Ql (Resp) Negative Negative [facility] Comment on above: Testing for SARS-CoV -2 by RT-PCRThis test was developed and its performance characteristics determined by [employer] ([employer] and validated at the [facility]. This test has not been FDA [...] Reminder/Recall done 08/25/19 done, results negative Normal [facility] Operative Reporton 9 Operative Report Result type: Progres s Note-Physician Result date: September 02, 2019 14:16 EST Result status: Auth (Verified) Result title: Local Female Cystoscopy w/ or w/o UD - FT Performed by: David ALARCON MD on September 02, 2019 14:17 EST Verified by: David ALARCON MD on September 02, 2019 14:17 EST Encounter info: [id number], [facility], Outpatient, 09/02/2019 - 09/02/2019 * Final Report * MOVED TO CORRECT FOLDER Local Female Cystoscopy w/ or w/o UD [...] and Time Signed: 09/02/19 14:17 EST Normal [facility] Comment on above: Result Comment: Elec tronically Signed By: David ALARCON MD\.br\Date and Time Signed: 09/06/19 11:29 EST Progress Note-Physicianon Progress Note-Physician Patient: BASHIR COATS Age: 64 years Sex: [...] with antibiotic coverage, Follow up arranged. Normal [facility] Comment on above: Result Comment: ERRO R - WRONG FOLDER Electronically Signed By: David ALARCON MD\.br\Date and Time Signed: 09/02/19 14:17 EST Coding Summary.on 09-03-2019 Coding Summary. CODING DATE: 09/03/2019 FINAL [facility] DSC STATUS: Home (Routine DC) PAYOR: Medicare APC [...] Morillo Date Saved: 09/03/2019 09:50 am Normal [facility] Main OR Intraoperative Recor don 09-02-2019 Main OR Intraoperative Record IntraOp Document Type FTURO Summary Primary Physician: David ALARCON MD Finalized Date/Time: 09/02/19 14:16:24 Pt. Name: BASHIR COATS/Sex: 1955 Female Med Rec #: [id number] Physician: David ALARCON MD Financial #: [id number] Pt. Type: O Room/Bed: / Admit/Disch: 09/02/19 12:39:57 - Institution: Case Times FTURO Entry 1 Patient Times In Room 09/02/19 14:07:00 Out Room 09/02/19 14:17:00 Procedure Times Start 09/02/19 14:11:00 Stop 09/02/19 14:14:00 Anesthesia Times Last Modified By: Jose De Jesus MORRISSEY, Hilda BERGERON 09/02/19 14:14:48 Case Attendance FTURO Entry 1 Entry 2 Entry 3 Case Attendee David ALARCON MD, RN, Yarely VELARDE, Noemi Stevens Role Performed Surgeon - Primary Commercial Diver - Primary Scrub - Primary Time In 09/02/19 14:07:00 09/02/19 14:07:00 09/02/19 14:07:00 Time Out 09/02/19 14:17:00 09/02/19 14:17:00 09/02/19 14:17:00 Procedure CYSTOSCOPY LOCAL(.) CYSTOSCOPY LOCAL(.) CYSTOSCOPY LOCAL(.) Comments Last Modified By: Jose De Jesus MORRISSEY, RUBIO, Jose De Jesus MORRISSEY, RN, Jose De [...] Clean-Contaminated Last Modified By: Jose De Jesus MORRISSEY, RUBIO, Hilda 09/02/19 14:15:30 General Case Data FTURO Pre-Care Text: Classifies surgical wound, implements aseptic technique, initiates traffic control Entry 1 Case Information OR URO 1 FT Case Level None Wound Class 2 - Clean-Contaminated Specialty Urology Preop Diagnosis HEMATURIA Postop Same As Preop No Postop Diagnosis HEMATURIA/normal exam Outcomes Met? Yes Last Modified By: Jose De Jesus MORRISSEY, RUBIO, Hilda 09/02/19 14:15:40 Post-Care Text: The patient is [...] Position Verified Availability Equipment, Medication Time Out David ALARCON MD, Verified (If Participants Jose De Jesus MORRISSEY, RUBIO, Applicable) Yarely Stevens EMBROIDERY ASSISTANT, Noemi Time Out Complete 09/02/19 14:11:00 Allergies [...] De Jesus MORRISSEY RN, Kelly 09/02/19 14:16 [facility] Main OR Preoperative Recordo n 09-02-2019 Main OR Preoperative Record Holding Area Document Type FTURO Summary Primary Physician: David ALARCON MD Finalized Date/Time: 09/02/19 14:09:52 Pt. Name: BASHIR COATS/Sex: 1955 Female Med Rec #: [id number] Physician: David ALARCON MD Financial #: [id number] Pt. Type: O Room/Bed: / Admit/Disch: 09/02/19 [...] Jesus MORRISSEY RN, Kelly 09/02/19 14:09 Normal [facility] MRI LUMBAR SPINE WO CONTRAST on 08-07-2018 MRI [facility]UMBAR SP[facility] WO CONTR[facility] [address] [place], [place] [id number] Patient Name: BASHIR COATS : 1955Sex: FAge: Race: WhiteMRN: [id number]. Location: 84Patient Status: DVisit #: [id number] Date: 07/10/2018 12:35:00 PMCompleted Date: 08/07/2018 02:49 PMRequesting Provider: GARETH REYES Attending Provider: Report Copy To: Signs & Symptoms: M54.5 Low back pain [id number]: Kacie, NO FB per [facility] auth # [id number] 07/29/18-09/27/18 [id number] *erComments: , , , Ordering Provider - GARETH REYES MD , Exam: MRI LUMBAR SPINE WO CONTRASTAccession #: [id number] MRI LUMBAR SPINE WO CONTRAST 08/07/2018 2:49 [...] above. Electronically signed by:Parul Whitfield. Transcribed by: [email or web address], User Resident: Electronically Signed by: PARUL WHITFIELD @ 08/08/2018 02:33 PM Normal [facility] Comment on above: Order Comment: , , = ========= , Ordering Provider - GARETH REYES MD , Operative Reporton 8 Operative Report MR#: [id number] [facility] Pt. Name: Bashir Coats Room #: 0C Discharge Date: Birthdate: 1955 OPERATIVE REPORTDATE OF SURGERY: 07/31/2018SURGEON: Pavel Leon M.D.PREOPERATIVE DIAGNOSIS: Soft tissue calcifications, right small fingertip.POSTOPERATI VE DIAGNOSIS: Soft tissue calcifications, right small fingertip.PROCEDURE: Excision of calcific lesions, right small finger tip.INSTRUMENT SHOP SUPERVISOR: Christopher Gay M.D.ANESTHESIA: Local 1% plain lidocaine.INDICATION [...] to the recovery area in stable condition.Electronica lly Signed by:Pavel Leon M.D. 08/01/2018 09:47 A Stephanie Leon M.D.Date Dict: 07/31/2018/11:05 Mey/Pavel Leon M.D.Date Trans: 07/31/2018 12:55 P/Johnson_JN:[id number]: Gee Merchant D.O. [address] [facility] [address] [facility] Vital Signs Date Time Vital Sign Value Performing Clinician Facility 07-02-2024 14:40-0400 Body height 152.4 cm DO [facility] Work Phone: [facility] 07-02-2024 14:40-0400 Body mass index (BMI) [Ratio] 34.9 kg/m2 DO [facility] Work Phone: [facility] 07-02-2024 14:40-0400 Body weight 81.19 kg DO [facility] Work Phone: [facility] 07-02-2024 14:40-0400 Diastolic blood pressure 78 mm[Hg] DO Steve Ball Work Phone: [facility] 07-02-2024 14:40-0400 Heart rate 72 /min DO Steve Ball Work Phone: [facility] 07-02-2024 14:40-0400 Respiratory rate 12 /min DO Steve Ball Work Phone: [facility] 07-02-2024 14:40-0400 Systolic blood pressure 141 mm[Hg] DO Steve Ball Work Phone: [facility] 06-09-2024 14:21-0400 Body height 152.4 cm DO Steve Ball Work Phone: [facility] 06-09-2024 14:21-0400 Body mass index (BMI) [Ratio] 34.2 kg/m2 DO Steve Ball Work Phone: [facility] 06-09-2024 14:21-0400 Body weight 79.37 kg DO Steve Ball Work Phone: [facility] 02-06-2024 12:05-0400 Body height 152.4 cm DO Steve Ball Work Phone: [facility] 02-06-2024 12:05-0400 Body mass index (BMI) [Ratio] 34.2 kg/m2 DO Steve Ball Work Phone: [facility] 02-06-2024 12:05-0400 Body temperature 98 [degF] DO Steve Ball Work Phone: [facility] 02-06-2024 12:05-0400 Body weight 79.37 kg DO Steve Ball Work Phone: [facility] 02-06-2024 12:05-0400 Diastolic blood pressure 70 mm[Hg] DO Steve Ball Work Phone: [facility] 02-06-2024 12:05-0400 Heart rate 76 /min DO Steve Ball Work Phone: [facility] 02-06-2024 12:05-0400 Respiratory rate 16 /min DO Steve Ball Work Phone: [facility] 02-06-2024 12:05-0400 SaO2% (BldA) [Mass fraction] 97 % DO Steve Ball Work Phone: [facility] 02-06-2024 12:05-0400 Systolic blood pressure 138 mm[Hg] DO Steve Ball Work Phone: [facility] 12-26-2023 12:07-0400 Body height 152.4 cm DO Steve Ball Work Phone: [facility] 12-26-2023 12:07-0400 Body mass index (BMI) [Ratio] 34.2 kg/m2 DO Steve Ball Work Phone: [facility] 12-26-2023 12:07-0400 Body temperature 97.8 [degF] DO Steve Ball Work Phone: [facility] 12-26-2023 12:07-0400 Body weight 79.37 kg DO Steve Ball Work Phone: [facility] 12-26-2023 12:07-0400 Diastolic blood pressure 64 mm[Hg] DO Steve Ball Work Phone: [facility] 12-26-2023 12:07-0400 Heart rate 84 /min DO Steve Ball Work Phone: [facility] 12-26-2023 12:07-0400 Respiratory rate 16 /min DO Steve Ball Work Phone: [facility] 12-26-2023 12:07-0400 SaO2% (BldA) [Mass fraction] 98 % DO Steve Ball Work Phone: [facility] 12-26-2023 12:07-0400 Systolic blood pressure 116 mm[Hg] DO Steve Ball Work Phone: [facility] 10-25-2023 13:45-0500 Body height 154.94 cm Alex Neely Other [facility] 10-25-2023 13:45-0500 Body mass index (BMI) [Ratio] 34.38 kg/m2 Alex Neely Other [employer] Other 10-25-2023 13:45-0500 Body weight 82.56 kg Alex Neely Other [employer] Other 10-25-2023 13:45-0500 Body weight 82.55 kg DO Steve Ball Work Phone: [facility] 10-09-2023 15:00-0500 Body height 154.94 cm Steve Ball Other [employer] Other 10-09-2023 15:00-0500 Body mass index (BMI) [Ratio] 34.38 kg/m2 Steve Ball Other [employer] Other 10-09-2023 15:00-0500 Body weight 82.56 kg Steve Ball Other [employer] Other 10-09-2023 15:00-0500 Diastolic blood pressure 81 mm[Hg] Steve Ball Other [employer] Other 10-09-2023 15:00-0500 Respiratory rate 12 /min Steve Ball Other [employer] Other 10-09-2023 15:00-0500 Systolic blood pressure 130 mm[Hg] Steve Ball Other [employer] Other 06-07-2023 12:45-0400 Body height 154.94 cm Chiara Damon Other [employer] Other 06-07-2023 12:45-0400 Body mass index (BMI) [Ratio] 34.27 kg/m2 Chiaar Damon Other [employer] Other 06-07-2023 12:45-0400 Body temperature 98.9 [degF] Chiara Marisol Other [employer] Other 06-07-2023 12:45-0400 Body weight 82.28 kg Chiara Marisol Other [employer] Other 06-07-2023 12:45-0400 Diastolic blood pressure 75 mm[Hg] Chiara Marisol Other [employer] Other 06-07-2023 12:45-0400 Respiratory rate 18 /min Chiara Marisol Other [employer] Other 06-07-2023 12:45-0400 SaO2% (BldA) [Mass fraction] 98 % Chiara Marisol Other [employer] Other 06-07-2023 12:45-0400 Systolic blood pressure 155 mm[Hg] Chiara Marisol Other [employer] Other 01-29-2023 15:50-0400 Body height 154.94 cm Chiara Marisol Other [employer] Other 01-29-2023 15:50-0400 Body mass index (BMI) [Ratio] 34.01 kg/m2 Chiara Marisol Other [employer] Other 01-29-2023 15:50-0400 Body temperature 98 [degF] Chiara Marisol Other [employer] Other 01-29-2023 15:50-0400 Body weight 81.65 kg Chiara Marisol Other [employer] Other 01-29-2023 15:50-0400 Diastolic blood pressure 81 mm[Hg] Chiara Marisol Other [employer] Other 01-29-2023 15:50-0400 Respiratory rate 18 /min Chiara Marisol Other [employer] Other 01-29-2023 15:50-0400 SaO2% (BldA) [Mass fraction] 93 % Chiara Marisol Other [employer] Other 01-29-2023 15:50-0400 Systolic blood pressure 153 mm[Hg] Chiara Marisol Other [employer] Other 12-16-2022 13:55-0500 Body height 154.94 cm Chiara Marisol Other [employer] Other 12-16-2022 13:55-0500 Body mass index (BMI) [Ratio] 34.84 kg/m2 Chiara Marisol Other [employer] Other 12-16-2022 13:55-0500 Body temperature 98.8 [degF] Chiara Marisol Other [employer] Other 12-16-2022 13:55-0500 Body weight 83.64 kg Chiara Marisol Other [employer] Other 12-16-2022 13:55-0500 Diastolic blood pressure 69 mm[Hg] Chiara Marisol Other [employer] Other 12-16-2022 13:55-0500 Respiratory rate 18 /min Chiara Marisol Other [employer] Other 12-16-2022 13:55-0500 Systolic blood pressure 140 mm[Hg] Chiara Damon Other [facility] [employer] Other 12-06-2022 13:36-0500 Diastolic blood pressure 66 mm[Hg] DO Steve Ball Work Phone: [facility] 12-06-2022 13:36-0500 Heart rate 77 /min DO Steve Ball Work Phone: [facility] 12-06-2022 13:36-0500 Respiratory rate 16 /min DO Steve Ball Work Phone: [facility] 12-06-2022 13:36-0500 SaO2% (BldA) [Mass fraction] 98 % DO Steve Ball Work Phone: [facility] 12-06-2022 13:36-0500 Systolic blood pressure 118 mm[Hg] DO Steve Ball Work Phone: [facility] 12-06-2022 12:07-0500 Body height 152.4 cm DO Steve Ball Work Phone: [facility] 12-06-2022 12:07-0500 Body temperature 98.7 [degF] DO Steve Ball Work Phone: [facility] 12-06-2022 12:07-0500 Body weight 80.73 kg DO Steve Ball Work Phone: [facility] 09-20-2022 14:32-0500 Diastolic blood pressure 80 mm[Hg] DO Steve Ball Work Phone: [facility] 09-20-2022 14:32-0500 Heart rate 72 /min DO Steve Ball Work Phone: [facility] 09-20-2022 14:32-0500 Respiratory rate 16 /min DO Steve Ball Work Phone: [facility] 09-20-2022 14:32-0500 SaO2% (BldA) [Mass fraction] 98 % DO Steve Ball Work Phone: [facility] 09-20-2022 14:32-0500 Systolic blood pressure 140 mm[Hg] DO Steve Ball Work Phone: [facility] 09-20-2022 14:02-0500 Inhaled oxygen flow rate 6 L/min DO Steve Ball Work Phone: [facility] 09-20-2022 12:20-0500 Body height 149.86 cm DO Steve Ball Work Phone: [facility] 09-20-2022 12:20-0500 Body temperature 99.2 [degF] DO Steve Ball Work Phone: [facility] 09-20-2022 12:20-0500 Body weight 79.83 kg DO Steve Ball Work Phone: [facility] Encounters Encounter Date Encounter Type Care Provider Facility Start: 07-02-2024 End: 07-02-2024 ambulatory DO Steve Ball Work Phone: [facility] Work Phone: Start: 07-02-2024 End: 07-02-2024 Patient encounter procedure DO Steve Ball Work Phone: [facility] Physician [facility] Work Phone: Start: 06-29-2024 Patient encounter procedure DO Steve Ball Work Phone: [facility] Start: 06-17-2024 Non-patient / Non-visit DO Steve Ball Work Phone: [facility] Work Phone: Start: 06-09-2024 End: 06-09-2024 ambulatory DO Steve Ball Work Phone: [facility] Work Phone: Start: 06-09-2024 End: 06-09-2024 Patient encounter procedure DO Steve Ball Work Phone: [facility] Work Phone: Start: 06-05-2024 End: 06-05-2024 Patient encounter procedure DO Steve Ball Work Phone: [facility] [place] Work Phone: Start: 06-05-2024 End: 06-05-2024 ambulatory DO Steve Ball Work Phone: [facility] Work Phone: Start: 05-29-2024 End: 05-29-2024 ambulatory BERTIN W CORRAL Not Available Start: 05-27-2024 End: 05-27-2024 ambulatory [facility] Work Phone: Start: 05-27-2024 End: 05-27-2024 Patient encounter procedure [facility] Gastroenterology Work Phone: Start: 05-15-2024 End: 05-15-2024 ambulatory BERTIN W CORRAL Not Available Start: 03-18-2024 End: 03-18-2024 ambulatory BERTIN W CORRAL Not Available Start: 02-26-2024 End: 02-26-2024 ambulatory BERTIN W CORRAL Not Available Start: 02-06-2024 End: 02-06-2024 ambulatory DO Steve Ball Work Phone: [facility] Work Phone: Start: 02-06-2024 End: 02-06-2024 Patient encounter procedure DO Steve Ball Work Phone: [facility] Work Phone: Start: 01-22-2024 End: 01-22-2024 ambulatory BERTIN W CORRAL Not Available Start: 01-14-2024 End: 01-14-2024 Patient encounter procedure DO Steve Ball Work Phone: [facility] [place] Work Phone: Start: 01-14-2024 End: 01-14-2024 ambulatory DO Steve Ball Work Phone: [facility] Work Phone: Start: 12-27-2023 End: 12-27-2023 ambulatory BERTIN CORRAL Not Available Start: 12-26-2023 End: 12-26-2023 Patient encounter procedure DO Steve Armendariz Work Phone: [facility] Vascular Surgery Work Phone: Start: 12-25-2023 Non-patient / Non-visit DO Steve Armendariz Work Phone: [facility] [employer] Work Phone: Start: 12-04-2023 End: 12-04-2023 ambulatory BERTIN CORRAL Not Available Start: 10-25-2023 End: 10-25-2023 ambulatory Alex Neely Other [facility] [employer] Other Start: 10-25-2023 Office outpatient visit 15 minutes Alex Neely [facility] Gastroenterology Start: 10-25-2023 End: 10-25-2023 Patient encounter procedure DO Steve Armendariz Work Phone: [facility] Physician [facility] Gastroenterology Work Phone: Start: 10-09-2023 End: 10-09-2023 ambulatory Steve Armendariz Other [facility] [employer] Other Start: 10-09-2023 Office outpatient visit 25 minutes Steve Marcello [facility] Start: 10-09-2023 Telephone encounter Steve Marcello [facility] Start: 06-07-2023 Office outpatient visit 15 minutes Chiara Damon [facility] Start: 06-07-2023 End: 06-07-2023 ambulatory DO Steve Armendariz Work Phone: [facility] Work Phone: Start: 06-07-2023 End: 06-07-2023 Patient encounter procedure DO Steve Armendariz Work Phone: [facility] Work Phone: Start: 02-08-2023 End: 02-09-[address] DOCTOR BROWN Facility:[facility] Start: 01-29-2023 End: 01-29-2023 ambulatory Chiara Damon Other [facility] [employer] Other Start: 01-29-2023 Office outpatient visit 15 minutes Chiara Damon [facility] Start: 12-16-2022 End: 12-16-2022 Patient encounter procedure DO Steve Ball Work Phone: [facility] Work Phone: Start: 12-16-2022 End: 12-16-2022 ambulatory DO Steve Armendariz Work Phone: [facility] Work Phone: Start: 12-16-2022 Office outpatient visit 15 minutes Chiara Damon [facility] Start: 12-06-2022 Telephone encounter Steve Armendariz [facility] Start: 12-06-2022 End: 12-06-2022 Admission to same day surgery center DO Steve Ball Work Phone: [facility] Work Phone: Start: 12-06-2022 End: 12-06-2022 ambulatory DO Steve Armendariz Work Phone: [facility] Work Phone: Start: 09-28-2022 End: 09-29-[address] DOCTOR BROWN Facility:[facility] Start: 09-20-2022 End: 09-20-2022 Admission to same day surgery center DO Steve Armendariz Work Phone: [facility] Work Phone: Start: 09-18-2022 End: 09-19-[address] ANGELIC VICK Facility:[facility] Start: 09-18-2022 End: 09-18-2022 ambulatory DO Steve Marcello Work Phone: [facility] Work Phone: Start: 09-18-2022 End: 09-18-2022 Patient encounter procedure DO Steve Armendariz Work Phone: [facility] Start: 07-26-2022 End: 08-25-[address] STEVE ARMENDARIZ Facility:[facility] Start: 06-09-2022 End: 06-10-[address] DOCTOR BROWN Facility:[facility] Start: 04-24-2022 End: 05-19-[address] STEVE ARMENDARIZ Facility:[facility] Start: 04-20-2022 Adult health examination Chiara Damon Other [employer] Other Start: 03-10-2022 End: 03-11-[address] STEVE ARMENDARIZ Facility:[facility] Start: 02-28-2022 End: 03-01-[address] STEVE ARMENDARIZ Facility:[facility] Start: 03-15-2021 End: 03-15-2021 Patient encounter procedure Pedro Ruiz Work Phone: -Pre-Surgical Testing Start: 08-07-2018 End: 08-08-2018 Patient encounter procedure GARETH REYES Facility:[facility] Start: 07-31-2018 End: 08-01-2018 Patient encounter procedure PAVEL LEON Facility:[facility] Procedures Date Procedure Procedure Detail Performing Clinician Start: 01-14-2024 Duplex scan of lower limb veins DO Johnathan min Ball Work Phone: Start: 06-07-2023 X-ray of left ankle DO Steve Ball Work Phone: Start: 12-16-2022 Plain X-ray of right elbow DO Steve B all Work Phone: Start: 12-16-2022 Plain X-ray of right shoulder DO Benjami n Ball Work Phone: Start: 12-06-2022 Esophagogastroduodenoscopy DO Steve B all Work Phone: Start: 09-20-2022 Esophagogastroduodenoscopy DO Steve B all Work Phone: Start: 09-18-2022 SARS Antigen (LFIA) DO Steve Ball Work Phone: Start: 07-31-2018 EXC H-[id number] B9+LINCOLN 0.5/< PAVEL SKIE Start: 04-12-2015 General examination of patient Chiara ritter Other Depression screening Chiara Damon Other Screening for malign ant neoplasm of breast Chiara Damon Other Screening for malign ant neoplasm of colon Steve Armendariz Other Plan of Treatment Date Care Activity Detail Author Start: 01-14-2024 Duplex scan of lower limb veins US venous duplex LE BI [facility] Start: 01-14-2024 US Lower extremity v ein - bilateral [facility] Start: 12-06-2022 [facility] Start: 09-20-2022 [facility] MG Breast - bilatera l Screening [facility] Patient Education [facility] Work Phone: Payers Date Payer Category Payer Unknown [id number] 1960 Private Health Insurance [id number] 1955 Unknown [id number] 1955 Unknown [id number] 2.16.840.1.255164.3.579.2.647 1955 Unknown [id number] 2.16.840.1.089928.3.579.2.593 1955 Unknown [id number] 2.16.840.1.097340.3.579.2.593 1955 Unknown [id number] 2.16.840.1.822701.3.579.2.593 1955 Unknown [id number] 2.16.840.1.088140.3.579.2.593 1955 Unknown [id number] 2.16.840.1.002808.3.579.2.593 1955 Unknown [id number] 2.16.840.1.927456.3.579.2.593 1955 Unknown [id number] 2.16.840.1.819277.3.579.2.593 1955 Unknown [id number] 2.16.840.1.293122.3.579.2.593 1954 Unknown [id number] 2.16.840.1.760598.3.579.2.593 1954 Unknown [id number] 2.16.840.1.212860.3.579.2.1259 1955 Unknown [id number] 2.16.840.1.750726.3.579.2.1259 1954 Unknown [id number] 2.16.840.1.607951.3.579.2.1259 1954 Unknown [id number] 2.16.840.1.536406.3.579.2.1259 1954 Unknown [id number] 2.16.840.1.790503.3.579.2.1259 1954 Unknown [id number] 2.16.840.1.575796.3.579.2.1259 1955 Unknown [id number] 2.16.840.1.946764.3.579.2.1259 Medicaid [id number] Private Health Insurance [employer] [id number] Self-pay [id number] Unknown [id number] Unknown [employer] [id number] Social History Date Type Detail Facility Tobacco smoking status NHIS Unknown if ever smoked [facility] Start: 1955 Sex Assigned At Female [facility] Start: 12-06-2022 End: 12-03-2023 Tobacco smoking status NHIS Never smoked tobacco (finding) [facility] Sex Assigned At Sex Assigned At Bir th [employer] Other Goals Date Patient Goal Desired Activity [...] dialy. Return visit here in six months [employer] Other 12-26-2023 Evaluation note* Encounter Date Diagnosis [...] Echo w/ normal LVEF Sep, Atherosclerosis of [place] arteries of extremities with intermittent claudication, bilateral [...] f/u Rheumatology CT chest, Echo, PFT normal [employer] Other 08-24-2023 Evaluation note* Encounter Date Diagnosis [...] the leg home care material was printed [employer] Other 04-17-2023 Evaluation note* Encounter Date Diagnosis Assessment Notes Treatment Notes Treatment Clinical Notes Jan, Bronchitis (ICD-10 - J40) Acute bronchitis material was printed Drink plenty fluids, get plenty of rest. Take your doxycycline at home, 1 tablet twice a day for 10 days. Take the prednisone as prescribed until gone. Take Robitussin, [id number] cough medicine, as needed for cough. Follow-up with your family physician if no improvement in 2 to 3 days [employer] Other 03-04-2023 Evaluation note* Encounter Date Diagnosis [...] Dec, Other Contusion mater ial was printed [employer] Other 02-22-2023 Evaluation note* Encounter Date Diagnosis Assessment Notes Treatment Notes Treatment Clinical Notes Nov, Schatzki's ring of distal esophagus (ICD-10 - K22.2) Nov, Eckert's esophagus without dysplasia (ICD-10 - K22.70) [employer] Other [facility] History general Narrative - Reported* Type Description Date Medical History scleroderma Medical History back pain Medical History GERD Medical History esophageal stricture Surgical History carpal tunnel release Surgical History EGD 11/2022 Hospitalization History blood clot in right leg 2005 [employer] Other 02-01-2023 History general Narrative - Reported* Type Description Date Medical History scleroderma Medical History back pain Medical History GERD Medical History esophageal stricture Surgical History carpal tunnel release Surgical History EGD 11/2022 Surgical History Colonoscopy 2020 Hospitalization History blood clot in right leg 2005 [employer] Other evaluxepxy noteNo assessment information available [facility] Diagnosis Onset Date Resolution Status Dysphagia acute Ulcerative esophagitis acute [facility] Work Phone: Evaluation note* Diagnosis Onset Date Resolution Status Ulcerative esophagitis acute [facility] Work Phone: Evaluation noteNo [employer] Other Evaluation note* Diagnosis Onset Date Resolution Status Bleeding from varicose veins of left lower extremity acute [facility] Work Phone: Evaluation note* Diagnosis Onset Date Resolution Status Dysphagia acute GERD (gastroesophageal reflux disease) [facility] Work Phone: Evaluation note* Diagnosis Onset Date Resolution Status Dysphagia acute GERD (gastroesophageal reflux disease) acute Dysphagia acute GERD (gastroesophageal reflux disease) [facility] Work Phone: Evaluation note* Diagnosis Onset Date Resolution Status Dysphagia acute Dysphagia acute Chronic venous insufficiency of lower extremity acute GERD (gastroesophageal reflux disease) acute Medicare annual wellness visit, subsequent acute Scleroderma of esophagus acu te Screening mammogram for breast cancer acute [facility] Work Phone: Hospital Discharge instructions Additional [...] if you have any problems. -Office number [phone] Work Phone: Summary Purpose Family History Relationship [...] Date/ Time Advance Directives No January 25, 018 1:33pm Advance Directive Response Recorded Date/ Time Advance Directives No January 25, 018 12:33pm Advance Directive Response Recorded Date/ [...] 6 week follow up; FF done at [facility] Reason for Visit Bleeding from varico se [...] reflux disease) Dysphagia GERD (gastroesophageal reflux disease) Chief Complaint 6 month follow up fo r GERD R13.10 follow up/PPI medication back pain , discuss heart issues Reason for Visit Dysphagia Dysphagia Chronic venous insufficiency of lower extremity GERD (gastroesophageal reflux disease) Medicare annual wellness visit, subsequent Scleroderma of esophagus Screening mammogram for breast cancer Additional Source Comments INFORMATION SOURCE (unrecogn ized section and content) DATE CREATED AUTHOR 09/14/2018 [facility] DATE CREATED AUTHOR AUTHOR'S ORGANIZ ATION 09/10/2019 [facility] DATE CREATED AUTHOR AUTHOR'S ORGANIZ ATION 02/16/2023 [facility] DATE CREATED AUTHOR AUTHOR'S ORGANIZ ATION 05/31/2024 [facility] DATE CREATED AUTHOR AUTHOR'S ORGANIZ ATION 06/08/2024 [facility] Goals (unrecognized section and content) [...] 2024 Team Status: Active Member Role Status Anne Armendariz DO Primary Care Provide r, Attending Provider Active Start: December 25, 2023 Team Status: Inactive Member Role Status Anne Armendariz DO Primary Care Provider Active Start: [...] 2024 Team Status: Inactive Member Role Status Anne Armendariz DO Primary Care Provider Active Start: February 06, 2024 End: February 06, 2024 Angelic Slaughter MD Attending Provider Active Start: February 06, 2024 End: February 06, 2024 Team Status: Inactive Member Role Status Anne Armendariz DO Primary Care Provider Active Alex Neely MD Attending Provider Active Team Status: Inactive Member Role Status Anne Armendariz DO Primary Care Provider Active VASHTI De La Rosa Attending Provider Active Team Status: Inactive Member Role Status Dates Alex Neely MD Attending Provider Active Start: October 25, 2023 End: October 25, 2023 Team Status: Inactive Member Role Status Dates Steve Armendariz DO Primary Care Provider Active Start: June 05, 2024 End: June 05, 2024 Miguel Sarah MD Attending Provider Active S tart: June 05, 2024 End: June 05, 2024 Team Status: Inactive Member Role Status Dates Steve Armendariz DO Primary Care Provider Active Start: June 09, 2024 End: June 09, 2024 Perez Mims APRN Attending Provider Active Start: June 09, 2024 End: June 09, 2024 Team Status: Active Member Role Status Dates Steve Armendariz DO Primary Care Provider Active Start: June 17, 2024 Angelic Vick MD Attending Provider Active St art: June 17, 2024 Team Status: Inactive Member Role Status Dates Steve Armendariz DO Primary Care Provide r, Attending Provider Active Start: July 02, 2024 End: July 02, 2024 REASON FOR VISIT (unrecogniz ed section [...] BE BASED ON THE PRIMARY CLINICAL RECORDS. [employer] [facility]. provides no warranty or guarantee of the accuracy or completeness of information in this document.
--- NOTE | 2024-07-09 11:09 | US_ITS ---
The [address] [address] Patient Name: BASHIR COATS MRN: [id number] date: 1955 Sex: F Assigned Patient Location: US Current Patient Location: US Accession/Order Number: [id number] Exam Date: 07/09/2024 11:09 Report Date: 07/09/2024 13:19 At the request of: AMITA RICKETTS Procedure: US renal BI EXAMINATION: US renal BI HISTORY: Spondylosis Of Lumbar Spine, Right Flank Pain COMPARISON: No relevant comparison available. TECHNIQUE: Ultrasound examination was performed of the kidneys and urinary bladder. FINDINGS: RIGHT KIDNEY: Minimally dilated renal pelvis, but this may be due to an extrarenal pelvis. No dilated calyces. No appreciable stones or mass. Minimal cortical thinning, 0.9 cm. Normal parenchymal echogenicity. Color Doppler demonstrates blood flow within the kidney. Kidney: 9.2 x 4.8 x 4.4 cm LEFT KIDNEY: Contains a nonobstructing 6 mm stone. Minimally dilated renal pelvis, but this may be due to an extrarenal pelvis. No dilated calyces. No appreciable mass. No cortical thinning. Normal parenchymal echogenicity. Color Doppler demonstrates blood flow within the kidney. Kidney: 8.4 x 3.8 x 4.3 cm BLADDER: No visible wall thickening, mass, or calculi. US/US renal BI IMPRESSION: 1. No acute or suspicious findings to account for patient's symptoms. 2. Nonobstructing left nephrolithiasis. Electronically authenticated by: EULALIA MORALES Date: 07/09/2024 13:19
== END 2024-07-09 10:58 | disposition home or self-care (01) ==
LOC: US 10:57
PROVIDERS: PCP Internal Medicine; Visit Provider Internal Medicine
DX: M47.816 Spondylosis without myelopathy or radiculopathy, lumbar region (principal); R10.9 Unspecified abdominal pain; N20.0 Calculus of kidney
CPT/HCPCS: 76775

== ENCOUNTER 2024-07-11 12:50 | Outpatient (OUT) | payer OTHER, SELFPAY ==
--- NOTE | 2024-07-11 | MM_ITS ---
Patient Name: BASHIR COATS MR#: [id number] : 1955 Exam Date: 07/11/2024 Ordering Doctor: DR Steve Armendariz D.O. RADIOLOGY REPORT PROCEDURE: MM TOMOSYNTHESIS SCREENING BI COMPARISON: MM TOMOSYNTHESIS SCREENING BI, 07/04/2023. MG MAMM SCREEN 3D TRENT CAD, 02/07/2022. MG MAMM SCREEN TRENT W CAD, 07/15/2019. MG MAMM SCREEN TRENT W CAD, 07/28/2011. INDICATIONS: Encounter for screening malignant neoplasm of breast Calculator Name [facility] Breast Cancer Risk Assessment Tool 5 Year Breast Cancer Risk 1.10% Lifetime Breast Cancer Risk 3.30% Personal Breast Cancer No Personal Ovarian Cancer No Treatments None Family Cancers Sister with lymphoma cancer at age 40. LOCATION: [facility] BREAST COMPOSITION: The breasts are heterogeneously dense,which may obscure small masses. FINDINGS: DIAGNOSTIC CATEGORY 2--BENIGN FINDING: RIGHT BREAST: No significant suspicious finding. Stable benign-appearing subareolar small lymph node. No significant change has occurred. LEFT BREAST: No significant suspicious finding. No significant change has occurred. RECOMMENDATIONS: ROUTINE MAMMOGRAM AND CLINICAL EVALUATION IN 12 MONTHS. PLEASE NOTE: A NORMAL MAMMOGRAM DOES NOT EXCLUDE THE POSSIBILITY OF BREAST CANCER. A CLINICALLY SUSPICIOUS PALPABLE LUMP SHOULD BE BIOPSIED. Dictated by: Mode Tijerina M.D. on 07/11/2024 at 16:13 Approved by: Mode Tijerina M.D. on 07/11/2024 at 16:16
--- NOTE | 2024-07-11 | XR_ITS ---
The [address] [address] Patient Name: BASHIR COATS MRN: [id number] date: 1955 Sex: F [facility]igned [facility] Current Patient Location: Accession/Order Number: [id number] Exam Date: 07/11/2024 13:15 Report Date: 07/12/2024 06:44 At the request of: AMITA RICKETTS Procedure: XR lumbar spine 6V w bending EXAMINATION: XR lumbar spine 6V w bending HISTORY: Spondylosis of lumbar spine right flank pain ; tingling and numbness in feet COMPARISON: XR L-spine 02/28/2022 FINDINGS: BONES: Moderate left convex curvature lumbar spine. Grade 1 retrolisthesis of L1 on 2, L2 on 3, and L3 on 4; no appreciable change during flexion and extension. No compression fracture. Moderate degenerative facet arthropathy L3-L4 through L5-S1. DISC SPACES: Marked narrowing L2-L3, L3 on 4. Moderate narrowing at remaining levels. PARASPINOUS: Negative. No paraspinous abnormality is seen. OTHER: Negative. XR/XR lumbar spine 6V w bending IMPRESSION: 1. Marked degenerative changes of lumbar spine as detailed above. No significant change/progression since prior study. Electronically authenticated by: EULALIA MORALES Date: 07/12/2024 06:44
--- OUTSIDE RECORDS SUMMARY | 2024-07-11 12:53 | XMS_ITS | CCD ---
Author Organization [facility] InformFormerly [facility] Care Team Providers Care Strategic Marketing Manager Name Role Phone EDUARDOE, PAVEL Unavailable Unavailable SKIE, PAVEL Unavailable Unavailable PAVLOCK, MAX CHAZ Unavailable Unavailable SELF, REFERRED Unavailable Unavailable OK Unavailable Unavailable SKIE, PAVEL Unavailable Unavailable ELGAFY, GARETH K Unavailable Unavailable ELGAFY, GARETH K Unavailable Unavailable PAVLOCK, MAX CHAZ Unavailable Unavailable PAVLOCK, MAX CHAZ Unavailable Unavailable Pedro Ruiz Attending Provider Steve Armendariz Primary Care Provider DO Steve Armendariz Primary Care Provider [phone] MD Alex Neely Attending Provider [phone] DO Steve Armendariz Primary Care Provider [phone] MD Alex Neely Attending Provider VASHTI Damon [...] Primary Care Provider VASHTI Damon Attending Provider Alex Neely Unavailable DO Steve Armendariz Primary Care Provider [phone] MD Angelic Slaughter Attending Provider BERTIN CORRAL [...] Facility Aminoglycosides (antibiotic) (1 source) Gentamicin Sulfate (NURSING HOME) Drug Allergy 01-31-20 18 Unknown Reaction [facility] Dihydrofolate Reductase Inhibitors (antibiotic) (1 source) Trimethoprim Drug Allergy 01-31-20 18 Headache [facility] Penicillins (antibiotic) (1 source) Penicillins Drug Allergy 01-31-20 18 Swelling of Lip/Tongue/Th roat [facility] Sulfonamides (antibiotic) (1 source) Sulfamethoxazole Drug Allergy 01-31-20 18 Headache [facility] (16 sources) Gentamicin Sulfate (NURSING HOME); Translations: [GENTAMICIN] Drug Allergy 04-21-20 15 Unknown Reaction, Unknown [facility] Rep[facility] (10 sources) meloxicam Drug Allergy 07-31-20 18 Rash [facility] (12 sources) Penicillins Drug allergy (disorder) 06-07-20 10 Swelling of Lip/Tongue/Th roat [facility] (8 sources) Sulfonamides (Antibiotic) Drug allergy (disorder) 07-31-20 18 Unknown Reaction [facility] (14 sources) Sulfamethoxazole Drug Allergy 01-31-20 18 Headache, Comment:heada ches, Headache, Comment:heada ches [facility] (10 sources) Trimethoprim Drug Allergy 01-31-20 18 Headache [facility] (7 sources) meloxicam Drug Allergy Unknown [facility] [employer] Other (7 sources) Sulfamethoxazole / Trimethoprim Drug Allergy Unknown [facility] [employer] Other (7 sources) Sulfonamides (Antibiotic) Propensity to adverse reactions Unknown [facility] [employer] Other (7 sources) Penicillian V Potassium Propensity to adverse reactions Unknown [facility] Other (13 sources) gentamycin Propensity to adverse reactions 10-25-19 24 Unknown, Unknown Reaction [facility] (1 source) meloxicam Drug Allergy [facility] Repository (4 sources) Penicillin Drug Allergy Comment:lips swell up [employer] [facility] Other (10 sources) Penicillin V Drug Allergy 10-25-19 24 Unknown, Unknown Reaction [facility] (4 sources) Substance with sulfonamide structure and antibacterial mechanism of action (substance) Drug allergy 12-07-19 16 Unknown [facility] Other (1 source) Allergies Reconciled Propensity to adverse reactions Unknown [employer] [facility] Other (10 sources) Gentamicin in Saline Drug allergy 10-25-19 24 Comment:made eye bloody [facility] (1 source) patient allergy list reviewed by nurse or physicia Propensity to adverse reactions 12-07-19 16 Comment:Done [employer] Other Medications Current Medications Medication Drug Class(es) [...] 29, 2018 11:00pm Garlic Active Grape Seed Ext-Bioflav,[place] (1 source) Start: 01-30-2018 take 1 tablet by mouth once daily Grape Seed Ext-Bioflav,[place] Active 1 TAB PO Daily January 30, 2018 12:00am grape seed extract 100 mg oral capsule (7 sources) take 2.5 tablets by mouth once daily Grape Seed Extract 100 MG 2.5 tablets orally daily Active Grape Seed Extra ct Active Grape Seed Xt-Bioflav,[place] (10 sources) Start: 01-30-2018 Grape Seed Xt- Bioflav,[place] Active 1 TAB PO As Directed January 30, 2018 8:53am Start: 01-30-2018 take 1 tablet by gladis th once daily Grape Seed Xt-Bioflav,[place] Active 1 TAB PO Daily January 30, 2018 12:00am Start: 01-30-2018 take 1 tablet by gladis th once daily Grape Seed Xt-Bioflav,[place] Active 1 TAB PO Daily January 29, 2018 11:00pm Start: 01-30-2018 Grape Seed Xt- Bioflav,[place] Active 1 TAB PO As Directed January [...] 12:00am September 20, 2022 1:12pm Melatonin Active [place] [facility] Extract (18 sources) Start: 01-30-2018 [place] Ext ract Active 1 TAB PO As Directed January 30, 2018 8:53am Start: 01-30-2018 take 1 tablet by mouth once da sarah [place] Extract Active 1 TAB PO Daily January 30, 2018 12:00am Start: 01-30-2018 take 1 tablet by mouth once da sarah [place] [facility] Extract Active 1 TAB PO Daily January 29, 2018 11:00pm Start: 01-30-2018 [place] Ext ract Active 1 TAB PO As Directed January 29, 2018 11:00pm [place] [facility] Extra ct Active [place] 6-Lyd-Rsi-Fish Oil (Fi sh Oil) 1,000 mg (120 mg-180 mg) Capsule (11 sources) Start: 01-30-2018 [place] 3-Dha-Ep a-Fish Oil (Fish Oil) 1,000 mg (120 mg-180 mg) Capsule Active 1 TAB PO As Directed January 30, 2018 8:53am Start: 01-30-2018 End: 09-20-2022 [place] 1-Zzm-Olm-Fish Oil (Fi sh Oil) 1,000 mg (120 mg-180 mg) Capsule Discontinued 1 TAB PO As Directed January 30, 2018 12:00am September 20, 2022 1:26pm Start: 01-30-2018 End: 09-20-2022 [place] 1-Ezu-Wxz-Fish Oil (Fi sh Oil) 1,000 mg (120 mg-180 mg) Capsule Discontinued 1 TAB PO As Directed January 29, 2018 11:00pm September 20, 2022 12:26pm Start: 01-30-2018 [place] 3-Dha-Ep a-Fish Oil (Fish Oil) 1,000 mg [...] unspecified] Episodic Other aftercare (1 source) Other group home (current) drug therapy; Translations: [OTH CHEMIST INTERN CURRENT DRUG THERAPY] Onset: 3 Episodic Other [...] and visceral atherosclerosis (10 sources) Atherosclerosis of grayling arteries of extremities with intermittent claudication, bilateral legs; Translations: [Atherosclerosis of grayling arteries of the extremities] Onset: 2 Chronic [...] Basophils (Bld) [#/Vol] 0.0 10 3/uL 0.0-0.1 [facility] Basophils/100 WBC Auto (Bld) on 06-17-2024 Basophils/100 WBC (Bld) 0.6 % 0.2-2.0 [facility] Eosinophils/100 WBC Auto (Bl d)on 06-17-2024 Eosinophils/100 WBC (Bld) 1.7 % 0.9-7.0 [facility] Erythrocyte distribution wid th Auto (RBC) [Ratio]on 06-17-2024 Erythrocyte distribution width (RBC) [Ratio] 13.8 % 11.0-15.0 [facility] Estimated glomerular filtrat ion rate (GFR) non- Americanon 06-17-2024 GFR/1.73 sq M.predicted among non-blacks MDRD (S/P/Bld) [Vol rate/Area] 60 mL/min/{1.73_m2} >=60 [facility] Globulin Calc (S) [Mass/Vol] on 06-17-2024 Globulin (S) [Mass/Vol] 3.1 g/dL [facility] Hematocrit Auto (Bld) [Volum e fraction]on 06-17-2024 Hematocrit (Bld) [Volume fraction] 39.9 % 36.0-48.0 [facility] Hemoglobin [Mass/volume] in Bloodon 06-17-2024 Hemoglobin (Bld) [Mass/Vol] 13.3 g/dL 12.0-16.0 [facility] Laboratory - Chemistry and C hemistry - challengeon 06-17-2024 Albumin [Mass/Vol] 3.3 g/dL Low 3.4-5.0 [facility] ALP [Catalytic activity/Vol] 73 U/L 46-116 [facility] ALT [Catalytic activity/Vol] 24 U/L 14-59 [facility] AST [Catalytic activity/Vol] 19 U/L 15-37 [facility] Bilirubin [Mass/Vol] 0.4 mg/dL 0.2-1.0 [facility] Calcium [Mass/Vol] 9.2 mg/dL 8.5-10.1 [facility] Chloride [Moles/Vol] 107 mmol/L 98-107 [facility] CO2 [Moles/Vol] 28.8 mmol/L 21.0-32.0 [facility] Creatinine [Mass/Vol] 0.93 mg/dL 0.55-1.02 [facility] GFR/1.73 sq M.predicted MDRD (S/P/Bld) [Vol rate/Area] mL/min/{1.73_m2} >=60 [facility] Glucose [Mass/Vol] 97 mg/dL 74-106 [facility] Potassium [Moles/Vol] 3.9 mmol/L 3.5-5.1 [facility] Protein [Mass/Vol] 6.4 g/dL 6.4-8.2 [facility] Sodium [Moles/Vol] 144 mmol/L 136-145 [facility] Urea nitrogen [Mass/Vol] 22.0 mg/dL High 7.0-18.0 [facility] Urea nitrogen/Creatinine [Mass ratio] 23.7 mg/mg [facility] Bilirubin Ql (U) Negative NEGATIVE [facility] Glucose (U) [Mass/Vol] Negative NEGATIVE [facility] Ketones Ql (U) Negative NEGATIVE [facility] pH (U) 5.5 [pH] 5.0-9.0 [facility] Specific gravity (U) [Rel density] <=1.005 Abnormal 1.005-1.025 [facility] Urobilinogen Qn (U) 0.2 {Lora'U}/dL 0.2-1.0 [facility] Laboratory - Hematology and Cell countson 06-17-2024 ESR (Bld) [Velocity] 27 mm/h <=30 [facility] Immature granulocytes/100 WBC (Bld) 0.1 % 0.0-0.5 [facility] - Specimen inform ationon 06-17-2024 Appearance (U) CLEAR CLEAR [facility] Color (U) LT. YELLOW YELLOW [facility] - Urinalysison Leukocyte esterase Test strip Ql (U) SMALL Abnormal NEGATIVE [facility] Mucus Ql (Urine sed) NONE SEEN NONE SEEN [facility] Nitrite Ql (U) Negative NEGATIVE [facility] Protein Ql (U) Negative NEG/TRACE [facility] Leukocytes [#/volume] correc pan for nucleated erythrocytes in Blood by Automated counon 06-17-2024 WBC corrected for nucl RBC Auto (Bld) [#/Vol] 7.0 10 3/uL 4.0-11.0 [facility] Lymphocytes Auto (Bld) [#/Vo l]on 06-17-2024 Lymphocytes (Bld) [#/Vol] 2.7 10 3/uL 1.2-3.8 [facility] Lymphocytes/100 WBC Auto (Bl d)on 06-17-2024 Lymphocytes/100 WBC (Bld) 38.7 % 20.5-60.0 [facility] MCH Auto (RBC) [Entitic mass ]on 06-17-2024 MCH (RBC) [Entitic mass] 30.2 pg 26.7-34.0 [facility] MCHC Auto (RBC) [Mass/Vol]on 06-17-2024 MCHC (RBC) [Mass/Vol] 33.3 g/dL 29.9-35.2 [facility] MCV Auto (RBC) [Entitic vol] on 06-17-2024 MCV (RBC) [Entitic vol] 90.5 fL 81.0-99.0 [facility] Monocytes Auto (Bld) [#/Vol] on 06-17-2024 Monocytes (Bld) [#/Vol] 0.5 10 3/uL 0.3-0.8 [facility] Monocytes/100 WBC Auto (Bld) on 06-17-2024 Monocytes/100 WBC (Bld) 7.2 % 1.7-12.0 [facility] Neutrophils Auto (Bld) [#/Vo l]on 06-17-2024 Neutrophils (Bld) [#/Vol] 3.6 10 3/uL 1.4-6.5 [facility] Neutrophils/100 WBC Auto (Bl d)on 06-17-2024 Neutrophils/100 WBC (Bld) 51.7 % 43.0-75.0 [facility] No Panel Informationon 06-17 Eosinophils # (Auto) 0.1 10 3/uL 0.0-0.7 [facility] Immature Granulocyte # (Auto) 0.01 10 3/uL 0.00-0.03 [facility] Total Complement (CH50) 55 U/mL >41 [facility] Comment on above: Age Male Female [...] to determine out of range values.Performed at: [facility] [id number] Director: Savage Vaughan PhD, Phone: [phone] Urine Bacteria TRACE #/HPF Abnormal NONE SEEN [facility] Urine Occult Blood TRACE-I NEGATIVE [facility] Urine RBC 0-2 #/HPF 0-2 [facility] Urine Squamous Epithelial Cells FEW #/LPF Abnormal NONE/RARE [facility] Urine WBC 2-5 #/HPF Abnormal NONE SEEN [facility] Platelet mean volume Auto (B ld) [Entitic vol]on 06-17-2024 Platelet mean volume (Bld) [Entitic vol] 8.8 fL Low 9.5-13.5 [facility] Platelets Auto (Bld) [#/Vol] on 06-17-2024 Platelets (Bld) [#/Vol] 177 10 3/uL 150-450 [facility] RBC Auto (Bld) [#/Vol]on RBC (Bld) [#/Vol] 4.41 10 6/uL 4.20-5.40 [facility] Serum or plasma albumin/glob ulin mass ratioon 06-17-2024 Albumin/Globulin [Mass ratio] 1.1 {ratio} [facility] Serum or plasma anion gap de terminationon 06-17-2024 Anion gap [Moles/Vol] 12.1 mmol/L [facility] Serum or plasma complement C 3 measurement (mass/volume)on 06-17-2024 Complement C3 [Mass/Vol] 125 mg/dL 82-167 [facility] Serum or plasma complement C 4 measurement (mass/volume)on 06-17-2024 Complement C4 [Mass/Vol] 20 mg/dL 12-38 [facility] Comment on above: Performed at: [facility] [id number] [place], [place] [id number] Director: Savage Vaughan PhD, Phone: [phone] US venous duplex LE BIon US venous duplex LE BI [facility] Main [place] [address] [place] [id number] Ultrasound Report Signed Patient: Bashir Coats MR#: [id number] : 1955 Acct:[id number] Age/Sex: 68 / F ADM Date: 01/14/24 Loc: Room: Type: [facility] Attending Dr: Angelic Slaughter MD Ordering Provider: [...] Bucky Reynaga M.D.01/15/2024 12:26 PM Dictation Location: [place] [address] Tech: Lizeth Dixon Transcribed By: COLTON 01/15/24 1226 Dictated By: Bucky Reynaga MD 01/15/24 1224 Signed By: 01/15/24 1226 Normal [facility] Automated epithelial cells c ount in urine sediment (number/area)on 12-25-2023 Epithelial cells Auto (Urine sed) [#/Area] FEW #/LPF NONE/RARE [facility] Automated leukocytes count i n urine sediment (number/area)on 12-25-2023 WBC Auto (Urine sed) [#/Area] 5-10 #/HPF 0-2 [facility] Automated urine specific gra vity by refractometryon 12-25-2023 Specific gravity Refractometry automated (U) [Rel density] 1.010 1.005-1.025 [facility] Basophils Auto (Bld) [#/Vol] on 12-25-2023 Basophils (Bld) [#/Vol] 0.1 10 3/uL 0.0-0.1 [facility] Basophils/100 WBC Auto (Bld) on 12-25-2023 Basophils/100 WBC (Bld) 0.8 % 0.2-2.0 [facility] Bilirubin Auto test strip (U ) [Mass/Vol]on 12-25-2023 Bilirubin (U) [Mass/Vol] Negative NEGATIVE [facility] Casts typing in urine sedime nt by light microscopyon 12-25-2023 Casts LM Nom (Urine sed) NONE SEEN #/LPF NONE SEEN [facility] Color Auto (U)on 12-25-2023 Color (U) LT. YELLOW YELLOW [facility] Eosinophils/100 WBC Auto (Bl d)on 12-25-2023 Eosinophils/100 WBC (Bld) 1.4 % 0.9-7.0 [facility] Erythrocyte distribution wid th Auto (RBC) [Ratio]on 12-25-2023 Erythrocyte distribution width (RBC) [Ratio] 13.8 % 11.0-15.0 [facility] Estimated glomerular filtrat ion rate (GFR) non- Americanon 12-25-2023 GFR/1.73 sq M.predicted among non-blacks MDRD (S/P/Bld) [Vol rate/Area] mL/min/{1.73_m2} >=60 [facility] Globulin Calc (S) [Mass/Vol] on 12-25-2023 Globulin (S) [Mass/Vol] 3.5 g/dL [facility] Hematocrit Auto (Bld) [Volum e fraction]on 12-25-2023 Hematocrit (Bld) [Volume fraction] 39.7 % 36.0-48.0 [facility] Hemoglobin [Mass/volume] in Bloodon 12-25-2023 Hemoglobin (Bld) [Mass/Vol] 12.6 g/dL 12.0-16.0 [facility] Ketones Auto test strip (U) [Mass/Vol]on 12-25-2023 Ketones (U) [Mass/Vol] Negative NEGATIVE [facility] Laboratory - Chemistry and C hemistry - challengeon 12-25-2023 Albumin [Mass/Vol] 3.3 g/dL 3.4-5.0 [facility] ALP [Catalytic activity/Vol] 74 U/L 46-116 [facility] ALT [Catalytic activity/Vol] 27 U/L 14-59 [facility] AST [Catalytic activity/Vol] 17 U/L 15-37 [facility] Bilirubin [Mass/Vol] 0.3 mg/dL 0.2-1.0 [facility] Calcium [Mass/Vol] 9.0 mg/dL 8.5-10.1 [facility] Chloride [Moles/Vol] 104 mmol/L 98-107 [facility] CO2 [Moles/Vol] 29.7 mmol/L 21.0-32.0 [facility] Creatinine [Mass/Vol] 0.91 mg/dL 0.55-1.02 [facility] GFR/1.73 sq M.predicted MDRD (S/P/Bld) [Vol rate/Area] mL/min/{1.73_m2} >=60 [facility] Glucose [Mass/Vol] 94 mg/dL 74-106 [facility] Potassium [Moles/Vol] 3.7 mmol/L 3.5-5.1 [facility] Protein [Mass/Vol] 6.8 g/dL 6.4-8.2 [facility] Sodium [Moles/Vol] 143 mmol/L 136-145 [facility] Urea nitrogen [Mass/Vol] 18.0 mg/dL 7.0-18.0 [facility] Urea nitrogen/Creatinine [Mass ratio] 19.8 mg/mg [facility] Laboratory - Hematology and Cell countson 12-25-2023 ESR (Bld) [Velocity] 29 mm/h <=30 [facility] Immature granulocytes/100 WBC (Bld) 0.3 % 0.0-0.5 [facility] Leukocytes [#/volume] correc pan for nucleated erythrocytes in Blood by Automated counon 12-25-2023 WBC corrected for nucl RBC Auto (Bld) [#/Vol] 8.0 10 3/uL 4.0-11.0 [facility] Lymphocytes Auto (Bld) [#/Vo l]on 12-25-2023 Lymphocytes (Bld) [#/Vol] 2.6 10 3/uL 1.2-3.8 [facility] Lymphocytes/100 WBC Auto (Bl d)on 12-25-2023 Lymphocytes/100 WBC (Bld) 32.4 % 20.5-60.0 [facility] MCH Auto (RBC) [Entitic mass ]on 12-25-2023 MCH (RBC) [Entitic mass] 29.3 pg 26.7-34.0 [facility] MCHC Auto (RBC) [Mass/Vol]on 12-25-2023 MCHC (RBC) [Mass/Vol] 31.7 g/dL 29.9-35.2 [facility] MCV Auto (RBC) [Entitic vol] on 12-25-2023 MCV (RBC) [Entitic vol] 92.3 fL 81.0-99.0 [facility] Monocytes Auto (Bld) [#/Vol] on 12-25-2023 Monocytes (Bld) [#/Vol] 0.6 10 3/uL 0.3-0.8 [facility] Monocytes/100 WBC Auto (Bld) on 12-25-2023 Monocytes/100 WBC (Bld) 7.0 % 1.7-12.0 [facility] Mucus LM Ql (Urine sed)on Mucus Ql (Urine sed) TRACE NONE SEEN [facility] Neutrophils Auto (Bld) [#/Vo l]on 12-25-2023 Neutrophils (Bld) [#/Vol] 4.6 10 3/uL 1.4-6.5 [facility] Neutrophils/100 WBC Auto (Bl d)on 12-25-2023 Neutrophils/100 WBC (Bld) 58.1 % 43.0-75.0 [facility] No Panel Informationon 12-24 Eosinophils # (Auto) 0.1 10 3/uL 0.0-0.7 [facility] Immature Granulocyte # (Auto) 0.02 10 3/uL 0.00-0.03 [facility] Total Complement (CH50) 57 U/mL >41 [facility] Comment on above: Age Male Female [...] to determine out of range values.Performed at: [facility] [id number] Director: Savage Vaughan PhD, Phone: [phone] Platelet mean volume Auto (B ld) [Entitic vol]on 12-25-2023 Platelet mean volume (Bld) [Entitic vol] 8.9 fL 9.5-13.5 [facility] Platelets Auto (Bld) [#/Vol] on 12-25-2023 Platelets (Bld) [#/Vol] 201 10 3/uL 150-450 [facility] Protein Auto test strip (U) [Mass/Vol]on 12-25-2023 Protein (U) [Mass/Vol] Negative NEG/TRACE [facility] RBC Auto (Bld) [#/Vol]on RBC (Bld) [#/Vol] 4.30 10 6/uL 4.20-5.40 [facility] Serum or plasma albumin/glob ulin mass ratioon 12-25-2023 Albumin/Globulin [Mass ratio] 0.9 {ratio} [facility] Serum or plasma anion gap de terminationon 12-25-2023 Anion gap [Moles/Vol] 13.0 mmol/L [facility] Serum or plasma complement C 3 measurement (mass/volume)on 12-25-2023 Complement C3 [Mass/Vol] 121 mg/dL 82-167 [facility] Serum or plasma complement C 4 measurement (mass/volume)on 12-25-2023 Complement C4 [Mass/Vol] 20 mg/dL 12-38 [facility] Comment on above: Performed at: [place] [id number] Director: Savage Vaughan PhD, Phone: [phone] Specific gravity Auto test s trip (U) [Rel density]on 12-25-2023 Specific gravity (U) [Rel density] CLEAR CLEAR [facility] Urine bacteria detection by automated methodon 12-25-2023 Bacteria Auto Ql (U) TRACE #/HPF NONE SEEN [facility] Urine glucose measurement by test strip (mass/volume)on 12-25-2023 Glucose Test strip (U) [Mass/Vol] Negative NEGATIVE [facility] Urine hemoglobin detection b y automated test stripon 12-25-2023 Hemoglobin Auto test strip Ql (U) MODERATE NEGATIVE [facility] Urine nitrite detection by a utomated test stripon 12-25-2023 Nitrite Auto test strip Ql (U) SMALL NEGATIVE [facility] Nitrite Auto test strip Ql (U) Negative NEGATIVE [facility] Urine sediment crystal ident ification by light microscopyon 12-25-2023 Crystals LM Nom (Urine sed) None Seen #/HPF None Seen [facility] Urine sediment leukocyte cou nt by microscopy (number/high power field)on 12-25-2023 WBC LM.HPF (Urine sed) [#/Area] 5-10 #/HPF NONE SEEN [facility] Urobilinogen Auto test strip (U) [Mass/Vol]on 12-25-2023 Urobilinogen Qn (U) 0.2 {Lora'U}/dL 0.2-1.0 [facility] pH Auto test strip (U)on pH (U) 5.5 [pH] 5.0-9.0 [facility] XR ankle LT min 3V*on 2022 XR ankle LT min 3V* [facility] [employer] Other XR ankle LT min 3V* [facility] [employer] Other XR ankle LT min 3V* [address] [place] [address] [employer] Other XR ankle LT min 3V* [place] [address] [employer] [facility] [employer] Other XR ankle LT min 3V* XRay Report [place] [employer] Other XR ankle LT min 3V* Signed [employer] Other XR ankle LT min 3V* Patient: Bashir Coats MR#: [id number] [place] [employer] Other XR ankle LT min 3V* : 1955 Acct:[id number] [employer] Other XR ankle LT min 3V* Age/Sex: 68 / F ADM Date: 06/07/23 [employer] Other XR ankle LT min 3V* Loc: XDUCLY Room: Type: REG CLI [employer] Other XR ankle LT min 3V* Attending Dr: Chiara KINGSTON [employer] Other XR ankle LT min 3V* Copies to: VASHTI Carter [employer] Other XR ankle LT min 3V* Ordering Provider: VASHTI Carter [employer] Other XR ankle LT min 3V* Date of Service: 06/07/23 [employer] Other XR ankle LT min 3V* XR/XR ankle LT min 3V*: LEFT ANKLE PAIN [employer] Other XR ankle LT min 3V* LEFT ANKLE - 3 views [employer] Other XR ankle LT min 3V* CLINICAL HISTORY: Left medial ankle pain with swelling and tingling and burning for one month. No [employer] Other XR ankle LT min 3V* known trauma. No rt [employer] Other XR ankle LT min 3V* COMPARISON: None [employer] Other XR ankle LT min 3V* FINDINGS: [employer] Other XR ankle LT min 3V* Soft tissue swelling is noted. Ankle mortise appears intact with mild degenerative change. No acute [employer] Other XR ankle LT min 3V* bony process. [place] gale martin. [employer] Other XR ankle LT min 3V* XR/XR ankle LT min 3V* [employer] Other XR ankle LT min 3V* IMPRESSION: [facility] [employer] Other XR ankle LT min 3V* SOFT TISSUE SWELLING WITHOUT ACUTE BONY PROCESS. DEGENERATIVE CHANGE. [employer] Other XR ankle LT min 3V* Impression dictated by: Tanner Jarquin Jr., D.O.06/07/2023 1:28 PM [employer] Other XR ankle LT min 3V* Dictation Location: [place] [address] [employer] Other XR ankle LT min 3V* Transcribed By: PWS 06/07/23 1328 [employer] Other XR ankle LT min 3V* Dictated By: Tanner Jarquin Jr, DO 06/07/23 1327 [employer] Other XR ankle LT min 3V* Signed By: [employer] Other XR ankle LT min 3V* 06/07/23 1328 No rt [employer] Other C3 and C4 COMPLEMENTon 02-10 Complement C3, Serum 141 mg/dL Normal 82-167 [facility] Comment on above: Performed By: #### C SUITE #### [facility] [address] [place] [address] [address] Eboni Smith Complement C4, Serum 24 mg/dL Normal 12-38 [facility] Comment on above: Performed By: #### C SUITE #### [facility] [address] [place] [address] [address] Eboni Smith COMPLEMENT TOTAL (CH50)on Complement, Total (CH50) >60 Normal >41 [facility] Comment on above: Result Comment: [...] values. Performed By: #### C H50T #### [facility] [address] [place] [address] [address] Eboni Smith CBC AUTO DIFFon 02-08-2023 BASO # 0.0 103/ul Normal 0.0-0.1 [facility] Comment on above: Performed By: #### C BC #### [facility] [address] [place] [address] Dr. Eboni Smith Basophils/100 WBC (Bld) 0.4 % Normal 0.2-2.0 [facility] Comment on above: Performed By: #### C BC #### [facility] [address] [place] [address] Dr. Eboni Smith EO # 0.2 103/ul Normal 0.0-0.7 [facility] Comment on above: Performed By: #### C BC #### [facility] [address] [place] [address] Dr. Eboni Smith Eosinophils/100 WBC (Bld) 1.6 % Normal 0.9-7.0 [facility] Comment on above: Performed By: #### C BC #### [facility] [address] [place] [address] Dr. Eboni Smith Erythrocyte distribution width (RBC) [Ratio] 14.6 % Normal 11.0-15.0 [facility] Comment on above: Performed By: #### C BC #### [facility] [address] [place] [address] Dr. Eboni Smith Hematocrit (Bld) [Volume fraction] 40.2 % Normal 36.0-48.0 [facility] Comment on above: Performed By: #### C BC #### [facility] [address] [place] [address] Dr. Eboni Smith Hemoglobin (Bld) [Mass/Vol] 12.7 g/dL Normal 12.0-16.0 [facility] Comment on above: Performed By: #### C BC #### [facility] [address] [place] [address] Dr. Eboni Smith IG # 0.06 10e3/ul Critically high 0.00-0.03 [facility] Comment on above: Performed By: #### C BC #### [facility] [address] [place] [address] Dr. Eboni Smith IG % 0.6 % Critically high 0.0-0.5 [facility] Comment on above: Performed By: #### C BC #### [facility] [address] [place] [address] Dr. Eboni Smith LYMPH # 3.4 103/ul Normal 1.2-3.8 [facility] Comment on above: Performed By: #### C BC #### [facility] [address] [place] [address] Dr. Eboni Smith Lymphocytes/100 WBC (Bld) 36.6 % Normal 20.5-60.0 [facility] Comment on above: Performed By: #### C BC #### [facility] [address] [place] [address] Dr. Eboni Smith MANUAL DIFF REQ NO Normal [facility] Comment on above: Performed By: #### C BC #### [facility] [address] [place] [address] Dr. Eboni Smith MCH (RBC) [Entitic mass] 28.6 pg Normal 26.7-34.0 [facility] Comment on above: Performed By: #### C BC #### [facility] [address] [place] [address] Dr. Eboni Smith MCHC (RBC) [Mass/Vol] 31.6 g/dL Normal 29.9-35.2 [facility] Comment on above: Performed By: #### C BC #### [facility] [address] [place] [address] Dr. Eboni Smith MCV (RBC) [Entitic vol] 90.5 fL Normal 81.0-99.0 [facility] Comment on above: Performed By: #### C BC #### [facility] [address] [place] [address] Dr. Eboni Smith MONO # 0.8 103/ul Normal 0.3-0.8 [facility] Comment on above: Performed By: #### C BC #### [facility] [address] [place] [address] Dr. Eboni Smith Monocytes/100 WBC (Bld) 8.2 % Normal 1.7-12.0 [facility] Comment on above: Performed By: #### C BC #### [facility] [address] [place] [address] Dr. Eboni Smith NEUT # 4.9 103/ul Normal 1.4-6.5 [facility] Comment on above: Performed By: #### C BC #### [facility] [address] [place] [address] Dr. Eboni Smith Neutrophils/100 WBC (Bld) 52.6 % Normal 43.0-75.0 [facility] Comment on above: Performed By: #### C BC #### [facility] [address] [place] [address] Dr. Eboni Smith Platelet mean volume (Bld) [Entitic vol] 8.5 fL Critically low 9.5-13.5 [facility] Comment on above: Performed By: #### C BC #### [facility] [address] [place] [address] Dr. Eboni Smtih PLT 272 103/ul Normal 150-450 [facility] Comment on above: Performed By: #### C BC #### [facility] [address] [place] [address] Dr. Eboni Smith RBC 4.44 106/ul Normal 4.20-5.40 [facility] Comment on above: Performed By: #### C BC #### [facility] [address] [place] [address] Dr. Eboni Smith WBC 9.4 103/ul Normal 4.0-11.0 [facility] Comment on above: Performed By: #### C BC #### [facility] [address] [place] [address] Dr. Eboni Smith PROF 14(COMP METB)on 023 Albumin [Mass/Vol] 3.2 g/dL Critically low 3.4-5.0 [facility] Comment on above: Performed By: #### C MP #### [facility] [address] [place] [address] Dr. Eboni Smith Albumin/Globulin [Mass ratio] 0.9 {ratio} Normal [facility] Comment on above: Performed By: #### C MP #### [facility] [address] [address] [address] Eboni Smith ALP [Catalytic activity/Vol] 85 U/L Normal 46-116 [facility] Comment on above: Performed By: #### C MP #### [facility] [address] [address] [address] Eboni Smith ALT [Catalytic activity/Vol] 22 U/L Normal 14-59 [facility] Comment on above: Performed By: #### C MP #### [facility] [address] [address] [address] Eboni Smith Anion gap [Moles/Vol] 10.8 mmol/L Normal [facility] Comment on above: Performed By: #### C MP #### [facility] [address] [place] [address] Dr. Eboni Smith AST [Catalytic activity/Vol] 16 U/L Normal 15-37 [facility] Comment on above: Performed By: #### C MP #### [facility] [address] [place] [address] Dr. Eboni Smith Bilirubin [Mass/Vol] 0.2 mg/dL Normal 0.2-1.0 [facility] Comment on above: Performed By: #### C MP #### [facility] [address] [address] [address] Eboni Smith Calcium [Mass/Vol] 8.9 mg/dL Normal 8.5-10.1 [facility] Comment on above: Performed By: #### C MP #### [facility] [address] [address] [address] Eboni Smith Chloride [Moles/Vol] 106 mmol/L Normal 98-107 [facility] Comment on above: Performed By: #### C MP #### [facility] [address] [place] [address] Dr. Eboni Smith CO2 [Moles/Vol] 28.2 mmol/L Normal 21.0-32.0 [facility] Comment on above: Performed By: #### C MP #### [facility] [address] [address] [address] Eboni Smith Creatinine [Mass/Vol] 0.87 mg/dL Normal 0.55-1.02 [facility] Comment on above: Performed By: #### C MP #### [facility] [address] [address] [address] Eboni Smith EGFR-AF ANGOLAN >60 Normal >=60 [facility] Comment on above: Performed By: #### C MP #### [facility] [address] [address] [address] Eboni Smith EGFR-NON AF ANGOLAN >60 Normal >=60 [facility] Comment on above: Performed By: #### C MP #### [facility] [address] [address] [address] Eboni Smith Globulin (S) [Mass/Vol] 3.5 g/dL Normal [facility] Comment on above: Performed By: #### C MP #### [facility] [address] [address] [address] Eboni Smith Glucose [Mass/Vol] 93 mg/dL Normal 74-106 [facility] Comment on above: Performed By: #### C MP #### [facility] [address] [place] [address] Dr. Eboni Smith Potassium [Moles/Vol] 4.0 mmol/L Normal 3.5-5.1 [facility] Comment on above: Performed By: #### C MP #### [facility] [address] [address] [address] Eboni Smith Protein [Mass/Vol] 6.7 g/dL Normal 6.4-8.2 [facility] Comment on above: Performed By: #### C MP #### [facility] [address] [place] [address] Dr. Eboni Smith Sodium [Moles/Vol] 141 mmol/L Normal 136-145 [facility] Comment on above: Performed By: #### C MP #### [facility] [address] [place] [address] Dr. Eboni Smith Urea nitrogen [Mass/Vol] 18.0 mg/dL Normal 7.0-18.0 [facility] Comment on above: Performed By: #### C MP #### [facility] [address] [place] [address] Dr. Eboni Smith Urea nitrogen/Creatinine [Mass ratio] 20.7 mg/mg Normal [facility] Comment on above: Performed By: #### C MP #### [facility] [address] [place] [address] Dr. Eboni Smith SED RATE WESTBANNERRENon 2022 SED RATE 22 mm/hr Normal <=30 [facility] Comment on above: Performed By: #### C SUITE #### [facility] [address] [place] [address] Dr. Eboni Smith UA RANDOM W/MICROSCOPICon BACTERIA TRACE Abnormal NONE SEEN [facility] Comment on above: Performed By: #### C BC #### [facility] [address] [place] [address] Dr. Eboni Smith Bilirubin Ql (U) Negative Normal NEGATIVE [facility] Comment on above: Performed By: #### C BC #### [facility] [address] [place] [address] Dr. Eboni Smith CAST NONE SEEN Normal NONE SEEN [facility] Comment on above: Performed By: #### C BC #### [facility] [address] [place] [address] Dr. Eboni Smith Clarity (U) SL CLOUDY Abnormal CLEAR [facility] Comment on above: Performed By: #### C BC #### [facility] [address] [place] [address] Dr. Eboni Smith Color (U) LT. YELLOW Normal YELLOW [facility] Comment on above: Performed By: #### C BC #### [facility] [address] [place] [address] Dr. Eboni Smith Crystals LM Nom (Urine sed) NONE SEEN Normal NONE SEEN [facility] Comment on above: Performed By: #### C BC #### [facility] [address] [place] [address] Dr. Eboni Smith Epithelial cells LM Ql (Urine sed) FEW Abnormal NONE SEEN /RARE [facility] Comment on above: Performed By: #### C BC #### [facility] [address] [place] [address] Dr. Eboni Smith Glucose Ql (U) Negative Normal NEGATIVE [facility] Comment on above: Performed By: #### C BC #### [facility] [address] [place] [address] Dr. Eboni Smith Hemoglobin Ql (U) TRACE-INTACT Abnormal NEGATIVE [facility] Comment on above: Performed By: #### C BC #### [facility] [address] [place] [address] Dr. Eboni Smith Ketones Ql (U) Negative Normal NEGATIVE [facility] Comment on above: Performed By: #### C BC #### [facility] [address] [place] [address] Dr. Eboni Smith LEUKOCYTES SMALL Abnormal NEGATIVE [facility] Comment on above: Performed By: #### C BC #### [facility] [address] [place] [address] Dr. Eboni Smith MUCOUS NONE SEEN Normal NONE SEEN [facility] Comment on above: Performed By: #### C BC #### [facility] [address] [place] [address] Dr. Eboni Smith Nitrite Ql (U) Negative Normal NEGATIVE [facility] Comment on above: Performed By: #### C BC #### [facility] [address] [place] [address] Dr. Eboni Smith pH (U) 5.5 [pH] Normal 5-9 [facility] Comment on above: Performed By: #### C BC #### [facility] [address] [place] [address] Dr. Eboni Smith RBC 0-2 Normal 0-2 [facility] Comment on above: Performed By: #### C BC #### [facility] [address] [place] [address] Dr. Eboni Smith SPEC GRAVITY 1.005 Normal 1.005-<=1.02 5 [facility] Comment on above: Performed By: #### C BC #### [facility] [address] [address] [address] Eboni Smith UA PROTEIN Negative Normal NEGATIVE/ TRACE [facility] Comment on above: Performed By: #### C BC #### [facility] [address] [address] [address] Eboni Smith Urobilinogen Qn (U) 0.2 {Lora'U}/dL Normal 0.2 - 1. 0 [facility] Comment on above: Performed By: #### C BC #### [facility] [address] [address] [address] Eboni Smith WBC 2-5 Abnormal NONE SEEN [facility] Comment on above: Performed By: #### C BC #### [facility] [address] [address] [address] Eboni Smith XR shoulder RT min 2V*on XR shoulder RT min 2V* [facility] [employer] Other XR shoulder RT min 2V* [facility] [employer] Other XR shoulder RT min 2V* [address] [place] [address] [employer] [facility] [employer] Other XR shoulder RT min 2V* [place] [address] [employer] Other XR shoulder RT min 2V* XRay Report [employer] Other XR shoulder RT min 2V* Signed [employer] Other XR shoulder RT min 2V* Patient: Bashir Coats MR#: [id number] [employer] Other XR shoulder RT min 2V* : 1955 Acct:[id number] [employer] Other XR shoulder RT min 2V* Age/Sex: 67 / F ADM Date: 12/16/22 [employer] Other XR shoulder RT min 2V* Loc: XDUCLY Room: Type: [facility] [employer] Other XR shoulder RT min 2V* Attending Dr: Chiara KINGSTON [employer] Other XR shoulder RT min 2V* Copies to: VASHTI Carter [employer] Other XR shoulder RT min 2V* Ordering Provider: VASHTI Carter [employer] Other XR shoulder RT min 2V* Date of Service: 12/16/22 [employer] Other XR shoulder RT min 2V* XR/XR elbow RT min 3V*: Right elbow pain;Acute pain of right shoulder [employer] Other XR shoulder RT min 2V* ([id number]) XR/XR shoulder RT min 2V*: Right elbow pain;Acute pain of right shoulder [employer] Other XR shoulder RT min 2V* RIGHT ELBOW - 4 views [employer] Other XR shoulder RT min 2V* CLINICAL HISTORY: Right elbow and shoulder pain status post fall 2 days ago. [employer] Other XR shoulder RT min 2V* COMPARISON: None [employer] Other XR shoulder RT min 2V* FINDINGS: [employer] Other XR shoulder RT min 2V* Right shoulder: Mild degenerative changes of the AC and glenohumeral joints without acute bony [employer] Other XR shoulder RT min 2V* process. [employer] Other XR shoulder RT min 2V* Right elbow: Soft tissue swelling. No elbow joint effusion. No acute bony process. Mild spurring [employer] Other XR shoulder RT min 2V* along the epicondyles. [employer] Other XR shoulder RT min 2V* XR/XR elbow RT min 3V* [employer] Other XR shoulder RT min 2V* IMPRESSION: [employer] Other XR shoulder RT min 2V* NO ACUTE BONY PROCESS. [employer] Other XR shoulder RT min 2V* Impression dictated by: Tanner Jarquin Jr., D.O.12/16/2022 2:46 PM [employer] Other XR shoulder RT min 2V* Dictation Location: [place] [address] [employer] Other XR shoulder RT min 2V* Transcribed By: COLTON 12/16/22 [facility] [employer] Other XR shoulder RT min 2V* Dictated By: Tanner Jarquin Jr, DO 12/16/22 [facility] [employer] Other XR shoulder RT min 2V* Signed By: [employer] Other XR shoulder RT min 2V* 12/16/22 [facility] [employer] Other C3 and C4 COMPLEMENTon 09-29 Complement C3, Serum 118 mg/dL Normal 82-167 [facility] Comment on above: Performed By: #### C BC #### [facility] [address] [address] [address] Eboni Smith Complement C4, Serum 25 mg/dL Normal 12-38 [facility] Comment on above: Performed By: #### C BC #### [facility] [address] [id number] Eboni Smith COMPLEMENT TOTAL (CH50)on Complement, Total (CH50) >60 Normal >41 [facility] Comment on above: Result Comment: [...] values. Performed By: #### C SUITE #### [facility] [address] [place] [address] Dr. Eboni Smith CBC AUTO DIFFon 09-28-2022 BASO # 0.0 103/ul Normal 0.0-0.1 [facility] Comment on above: Performed By: #### C BC #### [facility] [address] [place] [address] Dr. Eboni Smith Basophils/100 WBC (Bld) 0.6 % Normal 0.2-2.0 [facility] Comment on above: Performed By: #### C BC #### [facility] [address] [place] [address] Dr. Eboni Smith EO # 0.2 103/ul Normal 0.0-0.7 [facility] Comment on above: Performed By: #### C BC #### [facility] [address] [place] [address] Dr. Eboni Smith Eosinophils/100 WBC (Bld) 2.3 % Normal 0.9-7.0 [facility] Comment on above: Performed By: #### C BC #### [facility] [address] [place] [address] Dr. Eboni Smith Erythrocyte distribution width (RBC) [Ratio] 13.8 % Normal 11.0-15.0 [facility] Comment on above: Performed By: #### C BC #### [facility] [address] [place] [address] Dr. Eboni Smith Hematocrit (Bld) [Volume fraction] 39.7 % Normal 36.0-48.0 [facility] Comment on above: Performed By: #### C BC #### [facility] [address] [place] [address] Dr. Eboni Smith Hemoglobin (Bld) [Mass/Vol] 12.7 g/dL Normal 12.0-16.0 [facility] Comment on above: Performed By: #### C BC #### [facility] [address] [place] [address] Dr. Eboni Smith IG # 0.02 10e3/ul Normal 0.00-0.03 [facility] Comment on above: Performed By: #### C BC #### [facility] [address] [place] [address] Dr. Eboni Smith IG % 0.3 % Normal 0.0-0.5 [facility] Comment on above: Performed By: #### C BC #### [facility] [address] [place] [address] Dr. Eboni Smith LYMPH # 2.1 103/ul Normal 1.2-3.8 [facility] Comment on above: Performed By: #### C BC #### [facility] [address] [place] [address] Dr. Eboni Smith Lymphocytes/100 WBC (Bld) 31.2 % Normal 20.5-60.0 [facility] Comment on above: Performed By: #### C BC #### [facility] [address] [place] [address] Dr. Eboni Smith MANUAL DIFF REQ NO Normal [facility] Comment on above: Performed By: #### C BC #### [facility] [address] [place] [address] Dr. Eboni Smith MCH (RBC) [Entitic mass] 29.3 pg Normal 26.7-34.0 [facility] Comment on above: Performed By: #### C BC #### [facility] [address] [place] [address] Dr. Eboni Smith MCHC (RBC) [Mass/Vol] 32.0 g/dL Normal 29.9-35.2 [facility] Comment on above: Performed By: #### C BC #### [facility] [address] [place] [address] Dr. Eboni Smith MCV (RBC) [Entitic vol] 91.5 fL Normal 81.0-99.0 [facility] Comment on above: Performed By: #### C BC #### [facility] [address] [place] [address] Dr. Eboni Smith MONO # 0.5 103/ul Normal 0.3-0.8 [facility] Comment on above: Performed By: #### C BC #### [facility] [address] [place] [address] Dr. Eboni Smith Monocytes/100 WBC (Bld) 7.3 % Normal 1.7-12.0 [facility] Comment on above: Performed By: #### C BC #### [facility] [address] [place] [address] Dr. Eboni Smith NEUT # 4.0 103/ul Normal 1.4-6.5 [facility] Comment on above: Performed By: #### C BC #### [facility] [address] [place] [address] Dr. Eboin Smith Neutrophils/100 WBC (Bld) 58.3 % Normal 43.0-75.0 [facility] Comment on above: Performed By: #### C BC #### [facility] [address] [place] [address] Dr. Eboni Smith Platelet mean volume (Bld) [Entitic vol] 8.5 fL Critically low 9.5-13.5 [facility] Comment on above: Performed By: #### C BC #### [facility] [address] [place] [address] Dr. Eboni Smith PLT 200 103/ul Normal 150-450 [facility] Comment on above: Performed By: #### C BC #### [facility] [address] [place] [address] Dr. Eboni Smith RBC 4.34 106/ul Normal 4.20-5.40 [facility] Comment on above: Performed By: #### C BC #### [facility] [address] [place] [address] Dr. Eboni Smith WBC 6.9 103/ul Normal 4.0-11.0 [facility] Comment on above: Performed By: #### C BC #### [facility] [address] [place] [address] Dr. Eboni Smith PROF 14(COMP METB)on 09-28- 022 Albumin [Mass/Vol] 3.4 g/dL Normal 3.4-5.0 [facility] Comment on above: Performed By: #### C BC #### [facility] [address] [place] [address] Dr. Eboni Smith Albumin/Globulin [Mass ratio] 1.0 {ratio} Normal [facility] Comment on above: Performed By: #### C BC #### [facility] [address] [place] [address] Dr. Eboni Smith ALP [Catalytic activity/Vol] 75 U/L Normal 46-116 [facility] Comment on above: Performed By: #### C BC #### [facility] [address] [place] [address] Dr. Eboni Smith ALT [Catalytic activity/Vol] 16 U/L Normal 14-59 [facility] Comment on above: Performed By: #### C BC #### [facility] [address] [place] [address] Dr. Eboni Smith Anion gap [Moles/Vol] 10.2 mmol/L Normal [facility] Comment on above: Performed By: #### C BC #### [facility] [address] [place] [address] Dr. Eboni Smith AST [Catalytic activity/Vol] 18 U/L Normal 15-37 [facility] Comment on above: Performed By: #### C BC #### [facility] [address] [place] [address] Dr. Eboni Smith Bilirubin [Mass/Vol] 0.3 mg/dL Normal 0.2-1.0 [facility] Comment on above: Performed By: #### C BC #### [facility] [address] [place] [address] Dr. Eboni Smith Calcium [Mass/Vol] 9.3 mg/dL Normal 8.5-10.1 [facility] Comment on above: Performed By: #### C BC #### [facility] [address] [place] [address] Dr. Eboni Smith Chloride [Moles/Vol] 105 mmol/L Normal 98-107 [facility] Comment on above: Performed By: #### C BC #### [facility] [address] [place] [address] Dr. Eboni Smith CO2 [Moles/Vol] 29.1 mmol/L Normal 21.0-32.0 [facility] Comment on above: Performed By: #### C BC #### [facility] [address] [address] [address] Eboni Smith Creatinine [Mass/Vol] 0.87 mg/dL Normal 0.55-1.02 [facility] Comment on above: Performed By: #### C BC #### [facility] [address] [place] [address] Dr. Eboni Smith EGFR-AF ANGOLAN >60 Normal >=60 [facility] Comment on above: Performed By: #### C BC #### [facility] [address] [place] [address] Dr. Eboni Smith EGFR-NON AF ANGOLAN >60 Normal >=60 [facility] Comment on above: Performed By: #### C BC #### [facility] [address] [address] [address] Eboni Smith Globulin (S) [Mass/Vol] 3.4 g/dL Normal [facility] Comment on above: Performed By: #### C BC #### [facility] [address] [place] [address] Dr. Eboni Smith Glucose [Mass/Vol] 82 mg/dL Normal 74-106 [facility] Comment on above: Performed By: #### C BC #### [facility] [address] [place] [address] Dr. Eboni Smith Potassium [Moles/Vol] 4.3 mmol/L Normal 3.5-5.1 [facility] Comment on above: Performed By: #### C BC #### [facility] [address] [place] [address] Dr. Eboni Smith Protein [Mass/Vol] 6.8 g/dL Normal 6.4-8.2 [facility] Comment on above: Performed By: #### C BC #### [facility] [address] [place] [address] Dr. Eboni Smith Sodium [Moles/Vol] 140 mmol/L Normal 136-145 [facility] Comment on above: Performed By: #### C BC #### [facility] [address] [place] [address] Dr. Eboni Smith Urea nitrogen [Mass/Vol] 16.0 mg/dL Normal 7.0-18.0 [facility] Comment on above: Performed By: #### C BC #### [facility] [address] [place] [address] Dr. Eboni Smith Urea nitrogen/Creatinine [Mass ratio] 18.4 mg/mg Normal [facility] Comment on above: Performed By: #### C BC #### [facility] [address] [place] [address] Dr. Eboni Smith SED RATE [facility] 2021 SED RATE 17 mm/hr Normal <=30 [facility] Comment on above: Performed By: #### C BC #### [facility] [address] [place] [address] Dr. Eboni Smith UA RANDOM W/MICROSCOPICon BACTERIA TRACE Abnormal NONE SEEN [facility] Comment on above: Performed By: #### C BC #### [facility] [address] [place] [address] Dr. Eboni Smith Bilirubin Ql (U) Negative Normal NEGATIVE [facility] Comment on above: Performed By: #### C BC #### [facility] [address] [place] [address] Dr. Eboni Smith CAST NONE SEEN Normal NONE SEEN [facility] Comment on above: Performed By: #### C BC #### [facility] [address] [place] [address] Dr. Eboni Smith Clarity (U) CLEAR Normal CLEAR [facility] Comment on above: Performed By: #### C BC #### [facility] [address] [place] [address] Dr. Eboni Smith Color (U) LT. YELLOW Normal YELLOW [facility] Comment on above: Performed By: #### C BC #### [facility] [address] [address] [address] Eboni Smith Crystals LM Nom (Urine sed) NONE SEEN Normal NONE SEEN [facility] Comment on above: Performed By: #### C BC #### [facility] [address] [address] [address] Eboni Smith Epithelial cells LM Ql (Urine sed) FEW Abnormal NONE SEEN /RARE [facility] Comment on above: Performed By: #### C BC #### [facility] [address] [address] [address] Eboni Smith Glucose Ql (U) Negative Normal NEGATIVE [facility] Comment on above: Performed By: #### C BC #### [facility] [address] [place] [address] Dr. Eboni Smith Hemoglobin Ql (U) MODERATE Abnormal NEGATIVE [facility] Comment on above: Performed By: #### C BC #### [facility] [address] [place] [address] Dr. Eboni Smith Ketones Ql (U) Negative Normal NEGATIVE [facility] Comment on above: Performed By: #### C BC #### [facility] [address] [place] [address] Dr. Eboni Smith LEUKOCYTES TRACE Abnormal NEGATIVE [facility] Comment on above: Performed By: #### C BC #### [facility] [address] [place] [address] Dr. Eboni Smith MUCOUS NONE SEEN Normal NONE SEEN [facility] Comment on above: Performed By: #### C BC #### [facility] [address] [place] [address] Dr. Eboni Smith Nitrite Ql (U) Negative Normal NEGATIVE [facility] Comment on above: Performed By: #### C BC #### [facility] [address] [place] [address] Dr. Eboni Smith pH (U) 5.0 [pH] Normal 5-9 [facility] Comment on above: Performed By: #### C BC #### [facility] [address] [place] [address] Dr. Eboni Smith RBC 5-10 Abnormal 0-2 [facility] Comment on above: Performed By: #### C BC #### [facility] [address] [place] [address] Dr. Eboni Smith SPEC GRAVITY 1.010 Normal 1.005-<=1.02 5 [facility] Comment on above: Performed By: #### C BC #### [facility] [address] [place] [address] Dr. Eboni Smith UA PROTEIN Negative Normal NEGATIVE/ TRACE [facility] Comment on above: Performed By: #### C BC #### [facility] [address] [place] [address] Dr. Eboni Smith Urobilinogen Qn (U) 0.2 {Lora'U}/dL Normal 0.2 - 1. 0 [facility] Comment on above: Performed By: #### C BC #### [facility] [address] [place] [address] Dr. Eboni Smith WBC 5-10 Abnormal NONE SEEN [facility] Comment on above: Performed By: #### C BC #### [facility] [address] [place] [address] Dr. Eboni Smith COVID-19 SOFIAOrdered By: Whitney Neely on 09-18-2022 SARS-CoV+SARS-CoV-2 (COVID-19) Ag IA.rapid Ql (Resp) Negative Negative [facility] Comment on above: This is a [...] by: EULALIA MORALES Date: 2022-09-18 15:20 Normal [facility] ECHOCARDIO M/2D COMPLETEon 1 11-19-2021 ECHOCARDIO M/2D COMPLETE Patient: BASHIR COATS Exam Date: 09/18/2022 : 1955 Gender:F Ordering : DR ANGELIC VICK M.D. Admission #: [id number] Family : DR STEVE ARMENDARIZ D.O. Order #: [id number] CLICK HERE TO VIEW EXAM ECHOCARDIOGRAM REPORT [...] M.D. on 09/20/2022 at 13:59 Normal [facility] HEMOGLOBINon 09-18-2022 Hemoglobin (Bld) [Mass/Vol] 12.4 g/dL Normal 12.0-16.0 [facility] Comment on above: Performed By: #### C SUITE #### [facility] [address] [address] [address] Eboni Smith No Panel InformationOrdered By: Alex Neely on 09-18-2022 SARS Antigen (LFIA) [facility] SARS Antigen (LFIA) [facility] COMPLEMENT TOTAL (CH50)on Complement, Total (CH50) 59 U/mL Normal >41 [facility] Comment on above: Result Comment: [...] values. Performed By: #### C H50T #### [facility] [address] [address] [address] Eboni Smith C3 and C4 COMPLEMENTon 06-10 Complement C3, Serum 118 mg/dL Normal 82-167 [facility] Comment on above: Performed By: #### C SUITE #### [facility] [address] [address] [address] Eboni Smith Complement C4, Serum 22 mg/dL Normal 12-38 [facility] Comment on above: Performed By: #### C SUITE #### [facility] [address] [address] [address] Eboni Smith CBC AUTO DIFFon 06-09-2022 BASO # 0.0 103/ul Normal 0.0-0.1 [facility] Comment on above: Performed By: #### C BC #### [facility] [address] [place] [address] Dr. Eboni Smith Basophils/100 WBC (Bld) 0.4 % Normal 0.2-2.0 [facility] Comment on above: Performed By: #### C BC #### [facility] [address] [place] [address] Dr. Eboni Smith EO # 0.2 103/ul Normal 0.0-0.7 [facility] Comment on above: Performed By: #### C BC #### [facility] [address] [place] [address] Dr. Eboni Smith Eosinophils/100 WBC (Bld) 2.3 % Normal 0.9-7.0 [facility] Comment on above: Performed By: #### C BC #### [facility] [address] [place] [address] Dr. Eboni Smith Erythrocyte distribution width (RBC) [Ratio] 13.6 % Normal 11.0-15.0 [facility] Comment on above: Performed By: #### C BC #### [facility] [address] [place] [address] Dr. Eboni Smith Hematocrit (Bld) [Volume fraction] 40.7 % Normal 36.0-48.0 [facility] Comment on above: Performed By: #### C BC #### [facility] [address] [place] [address] Dr. Eboni Smith Hemoglobin (Bld) [Mass/Vol] 12.9 g/dL Normal 12.0-16.0 [facility] Comment on above: Performed By: #### C BC #### [facility] [address] [place] [address] Dr. Eboni Smith IG # 0.02 10e3/ul Normal 0.00-0.03 [facility] Comment on above: Performed By: #### C BC #### [facility] [address] [place] [address] Dr. Eboni Smith IG % 0.3 % Normal 0.0-0.5 [facility] Comment on above: Performed By: #### C BC #### [facility] [address] [place] [address] Dr. Eboni Smith LYMPH # 2.3 103/ul Normal 1.2-3.8 [facility] Comment on above: Performed By: #### C BC #### [facility] [address] [place] [address] Dr. Eboni Smith Lymphocytes/100 WBC (Bld) 33.6 % Normal 20.5-60.0 [facility] Comment on above: Performed By: #### C BC #### [facility] [address] [place] [address] Dr. Eboni Smith MANUAL DIFF REQ NO Normal [facility] Comment on above: Performed By: #### C BC #### [facility] [address] [place] [address] Dr. Eboni Smith MCH (RBC) [Entitic mass] 29.5 pg Normal 26.7-34.0 [facility] Comment on above: Performed By: #### C BC #### [facility] [address] [place] [address] Dr. Eboni Smith MCHC (RBC) [Mass/Vol] 31.7 g/dL Normal 29.9-35.2 [facility] Comment on above: Performed By: #### C BC #### [facility] [address] [place] [address] Dr. Eboni Smith MCV (RBC) [Entitic vol] 92.9 fL Normal 81.0-99.0 [facility] Comment on above: Performed By: #### C BC #### [facility] [address] [place] [address] Dr. Eboni Smith MONO # 0.6 103/ul Normal 0.3-0.8 [facility] Comment on above: Performed By: #### C BC #### [facility] [address] [place] [address] Dr. Eboni Smith Monocytes/100 WBC (Bld) 8.1 % Normal 1.7-12.0 [facility] Comment on above: Performed By: #### C BC #### [facility] [address] [address] [address] Eboni Smith NEUT # 3.8 103/ul Normal 1.4-6.5 [facility] Comment on above: Performed By: #### C BC #### [facility] [address] [place] [address] Dr. Eboni Smith Neutrophils/100 WBC (Bld) 55.3 % Normal 43.0-75.0 [facility] Comment on above: Performed By: #### C BC #### [facility] [address] [place] [address] Dr. Eboni Smith Platelet mean volume (Bld) [Entitic vol] 8.8 fL Critically low 9.5-13.5 [facility] Comment on above: Performed By: #### C BC #### [facility] [address] [place] [address] Dr. Eboni Smith PLT 209 103/ul Normal 150-450 [facility] Comment on above: Performed By: #### C BC #### [facility] [address] [place] [address] Dr. Eboni Smith RBC 4.38 106/ul Normal 4.20-5.40 [facility] Comment on above: Performed By: #### C BC #### [facility] [address] [place] [address] Dr. Eboni Smith WBC 6.9 103/ul Normal 4.0-11.0 [facility] Comment on above: Performed By: #### C BC #### [facility] [address] [place] [address] Dr. Eboni Smith PROF 14(COMP METB)on 022 Albumin [Mass/Vol] 3.6 g/dL Normal 3.4-5.0 [facility] Comment on above: Performed By: #### C SUITE #### [facility] [address] [place] [address] Dr. Eboni Smith Albumin/Globulin [Mass ratio] 1.1 {ratio} Normal [facility] Comment on above: Performed By: #### C SUITE #### [facility] [address] [address] [address] Eboni Smith ALP [Catalytic activity/Vol] 78 U/L Normal 46-116 [facility] Comment on above: Performed By: #### C SUITE #### [facility] [address] [address] [address] Eboni Smith ALT [Catalytic activity/Vol] 19 U/L Normal 14-59 [facility] Comment on above: Performed By: #### C SUITE #### [facility] [address] [place] [address] Dr. Eboni Smith Anion gap [Moles/Vol] 10.4 mmol/L Normal [facility] Comment on above: Performed By: #### C SUITE #### [facility] [address] [place] [address] Dr. Eboni Smith AST [Catalytic activity/Vol] 18 U/L Normal 15-37 [facility] Comment on above: Performed By: #### C SUITE #### [facility] [address] [place] [address] Dr. Eboni Smith Bilirubin [Mass/Vol] 0.3 mg/dL Normal 0.2-1.0 [facility] Comment on above: Performed By: #### C SUITE #### [facility] [address] [place] [address] Dr. Eboni Smith Calcium [Mass/Vol] 8.9 mg/dL Normal 8.5-10.1 [facility] Comment on above: Performed By: #### C SUITE #### [facility] [address] [place] [address] Dr. Eboin Smith Chloride [Moles/Vol] 105 mmol/L Normal 98-107 [facility] Comment on above: Performed By: #### C SUITE #### [facility] [address] [place] [address] Dr. Eboni Smith CO2 [Moles/Vol] 28.8 mmol/L Normal 21.0-32.0 [facility] Comment on above: Performed By: #### C SUITE #### [facility] [address] [place] [address] Dr. Eboni Smith Creatinine [Mass/Vol] 0.88 mg/dL Normal 0.55-1.02 [facility] Comment on above: Performed By: #### C SUITE #### [facility] [address] [place] [address] Dr. Eboni Smith EGFR-AF ANGOLAN >60 Normal >=60 [facility] Comment on above: Performed By: #### C SUITE #### [facility] [address] [address] [address] Eboni Smith EGFR-NON AF ANGOLAN >60 Normal >=60 [facility] Comment on above: Performed By: #### C SUITE #### [facility] [address] [place] [address] Dr. Eboni Smith Globulin (S) [Mass/Vol] 3.3 g/dL Normal [facility] Comment on above: Performed By: #### C SUITE #### [facility] [address] [place] [address] Dr. Eboni Smith Glucose [Mass/Vol] 98 mg/dL Normal 74-106 [facility] Comment on above: Performed By: #### C SUITE #### [facility] [address] [place] [address] Dr. Eboni Smith Potassium [Moles/Vol] 4.2 mmol/L Normal 3.5-5.1 [facility] Comment on above: Performed By: #### C SUITE #### [facility] [address] [place] [address] Dr. Eboni Smith Protein [Mass/Vol] 6.9 g/dL Normal 6.4-8.2 [facility] Comment on above: Performed By: #### C SUITE #### [facility] [address] [place] [address] Dr. Eboni Smith Sodium [Moles/Vol] 140 mmol/L Normal 136-145 [facility] Comment on above: Performed By: #### C SUITE #### [facility] [address] [place] [address] Dr. Eboni Smith Urea nitrogen [Mass/Vol] 22.0 mg/dL Critically high 7.0-18.0 [facility] Comment on above: Performed By: #### C SUITE #### [facility] [address] [place] [address] Dr. Eboni Smith Urea nitrogen/Creatinine [Mass ratio] 25.0 mg/mg Normal [facility] Comment on above: Performed By: #### C SUITE #### [facility] [address] [place] [address] Dr. Eboni Smith SED RATE [facility] 2021 SED RATE 21 mm/hr Normal <=30 [facility] Comment on above: Performed By: #### C SUITE #### [facility] [address] [place] [address] Dr. Eboni Smith UA RANDOM W/MICROSCOPICon BACTERIA NONE SEEN Normal NONE SEEN [facility] Comment on above: Performed By: #### U AMIC #### [facility] [address] [place] [address] Dr. Eboni Smith Bilirubin Ql (U) Negative Normal NEGATIVE [facility] Comment on above: Performed By: #### U AMIC #### [facility] [address] [place] [address] Dr. Eboni Smith CAST NONE SEEN Normal NONE SEEN [facility] Comment on above: Performed By: #### U AMIC #### [facility] [address] [place] [address] Dr. Eboni Smith Clarity (U) CLEAR Normal CLEAR [facility] Comment on above: Performed By: #### U AMIC #### [facility] [address] [place] [address] Dr. Eboni Smith Color (U) LT. YELLOW Normal YELLOW [facility] Comment on above: Performed By: #### U AMIC #### [facility] [address] [place] [address] Dr. Eboni Smith Crystals LM Nom (Urine sed) NONE SEEN Normal NONE SEEN [facility] Comment on above: Performed By: #### U AMIC #### [facility] [address] [place] [address] Dr. Eboni Smith Epithelial cells LM Ql (Urine sed) FEW Abnormal NONE SEEN /RARE [facility] Comment on above: Performed By: #### U AMIC #### [facility] [address] [address] [address] Eboni Smith Glucose Ql (U) Negative Normal NEGATIVE [facility] Comment on above: Performed By: #### U AMIC #### [facility] [address] [address] [address] Eboni Smith Hemoglobin Ql (U) SMALL Abnormal NEGATIVE [facility] Comment on above: Performed By: #### U AMIC #### [facility] [address] [address] [address] Eboni Smith Ketones Ql (U) Negative Normal NEGATIVE [facility] Comment on above: Performed By: #### U AMIC #### [facility] [address] [place] [address] Dr. Eboni Smith LEUKOCYTES TRACE Abnormal NEGATIVE [facility] Comment on above: Performed By: #### U AMIC #### [facility] [address] [address] [address] Eboni Smith MUCOUS NONE SEEN Normal NONE SEEN [facility] Comment on above: Performed By: #### U AMIC #### [facility] [address] [address] [address] Eboni Smith Nitrite Ql (U) Negative Normal NEGATIVE [facility] Comment on above: Performed By: #### U AMIC #### [facility] [address] [address] [address] Eboni Smith pH (U) 6.0 [pH] Normal 5-9 [facility] Comment on above: Performed By: #### U AMIC #### [facility] [address] [address] [address] Eboni Smith RBC 2-5 Abnormal 0-2 [facility] Comment on above: Performed By: #### U AMIC #### [facility] [address] [place] [address] Dr. Eboni Smith SPEC GRAVITY 1.010 Normal 1.005-<=1.02 5 [facility] Comment on above: Performed By: #### U AMIC #### [facility] [address] [address] [address] Eboni Smith UA PROTEIN Negative Normal NEGATIVE/ TRACE [facility] Comment on above: Performed By: #### U AMIC #### [facility] [address] [address] [address] Eboni Smith Urobilinogen Qn (U) 0.2 {Lora'U}/dL Normal 0.2 - 1. 0 [facility] Comment on above: Performed By: #### U AMIC #### [facility] [address] [address] [address] Eboni Smith WBC 2-5 Abnormal NONE SEEN [facility] Comment on above: Performed By: #### U AMIC #### [facility] [address] [address] [address] Eboni Smith C3 and C4 COMPLEMENTon 03-01 Complement C3, Serum 110 mg/dL Normal 82-167 [facility] Comment on above: Performed By: #### C SUITE #### [facility] [address] [address] [address] Eboni Smith Complement C4, Serum 22 mg/dL Normal 12-38 [facility] Comment on above: Performed By: #### C SUITE #### [facility] [address] [address] [address] Eboni Smith COMPLEMENT TOTAL (CH50)on Complement, Total (CH50) >60 Normal >41 [facility] Comment on above: Result Comment: Age [...] values. Performed By: #### C BC #### [facility] [address] [address] [address] Eboni Smith CBC AUTO DIFFon 02-28-2022 BASO # 0.0 103/ul Normal 0.0-0.1 [facility] Comment on above: Performed By: #### C SUITE #### [facility] [address] [place] [address] Dr. Eboni Smith Basophils/100 WBC (Bld) 0.2 % Normal 0.2-2.0 [facility] Comment on above: Performed By: #### C SUITE #### [facility] [address] [place] [address] Dr. Eboni Smith EO # 0.1 103/ul Normal 0.0-0.7 [facility] Comment on above: Performed By: #### C SUITE #### [facility] [address] [place] [address] Dr. Eboni Smith Eosinophils/100 WBC (Bld) 1.5 % Normal 0.9-7.0 [facility] Comment on above: Performed By: #### C SUITE #### [facility] [address] [place] [address] Dr. Eboni Smith Erythrocyte distribution width (RBC) [Ratio] 14.6 % Normal 11.0-15.0 [facility] Comment on above: Performed By: #### C SUITE #### [facility] [address] [place] [address] Dr. Eboni Smith Hematocrit (Bld) [Volume fraction] 38.9 % Normal 36.0-48.0 [facility] Comment on above: Performed By: #### C SUITE #### [facility] [address] [place] [address] Dr. Eboni Smith Hemoglobin (Bld) [Mass/Vol] 12.4 g/dL Normal 12.0-16.0 [facility] Comment on above: Performed By: #### C SUITE #### [facility] [address] [place] [address] Dr. Eboni Smith IG # 0.02 10e3/ul Normal 0.00-0.03 [facility] Comment on above: Performed By: #### C SUITE #### [facility] [address] [place] [address] Dr. Eboni Smith IG % 0.2 % Normal 0.0-0.5 [facility] Comment on above: Performed By: #### C SUITE #### [facility] [address] [place] [address] Dr. Eboni Smith LYMPH # 2.3 103/ul Normal 1.2-3.8 [facility] Comment on above: Performed By: #### C SUITE #### [facility] [address] [place] [address] Dr. Eboni Smith Lymphocytes/100 WBC (Bld) 27.7 % Normal 20.5-60.0 [facility] Comment on above: Performed By: #### C SUITE #### [facility] [address] [place] [address] Dr. Eboni Smith MANUAL DIFF REQ NO Normal [facility] Comment on above: Performed By: #### C SUITE #### [facility] [address] [place] [address] Dr. Eboni Smith MCH (RBC) [Entitic mass] 29.1 pg Normal 26.7-34.0 [facility] Comment on above: Performed By: #### C SUITE #### [facility] [address] [place] [address] Dr. Eboni Smith MCHC (RBC) [Mass/Vol] 31.9 g/dL Normal 29.9-35.2 [facility] Comment on above: Performed By: #### C SUITE #### [facility] [address] [place] [address] Dr. Eboni Smith MCV (RBC) [Entitic vol] 91.3 fL Normal 81.0-99.0 [facility] Comment on above: Performed By: #### C SUITE #### [facility] [address] [place] [address] Dr. Eboni Smith MONO # 0.6 103/ul Normal 0.3-0.8 [facility] Comment on above: Performed By: #### C SUITE #### [facility] [address] [place] [address] Dr. Eboni Smith Monocytes/100 WBC (Bld) 6.7 % Normal 1.7-12.0 [facility] Comment on above: Performed By: #### C SUITE #### [facility] [address] [address] [address] Eboni Smith NEUT # 5.3 103/ul Normal 1.4-6.5 [facility] Comment on above: Performed By: #### C SUITE #### [facility] [address] [address] [address] Eboni Smith Neutrophils/100 WBC (Bld) 63.7 % Normal 43.0-75.0 [facility] Comment on above: Performed By: #### C SUITE #### [facility] [address] [place] [address] Dr. Eboni Smith Platelet mean volume (Bld) [Entitic vol] 8.3 fL Critically low 9.5-13.5 [facility] Comment on above: Performed By: #### C SUITE #### [facility] [address] [place] [address] Dr. Eboni Smith PLT 185 103/ul Normal 150-450 [facility] Comment on above: Performed By: #### C SUITE #### [facility] [address] [place] [address] Dr. Eboni Smith RBC 4.26 106/ul Normal 4.20-5.40 [facility] Comment on above: Performed By: #### C SUITE #### [facility] [address] [place] [address] Dr. Eboni Smith WBC 8.2 103/ul Normal 4.0-11.0 [facility] Comment on above: Performed By: #### C SUITE #### [facility] [address] [place] [address] Dr. Eboni Smith PROF 14(COMP METB)on 022 Albumin [Mass/Vol] 3.5 g/dL Normal 3.4-5.0 [facility] Comment on above: Performed By: #### C SUITE #### [facility] [address] [place] [address] Dr. Eboni Smith Albumin/Globulin [Mass ratio] 1.0 {ratio} Normal [facility] Comment on above: Performed By: #### C SUITE #### [facility] [address] [address] [address] Eboni Smith ALP [Catalytic activity/Vol] 70 U/L Normal 46-116 [facility] Comment on above: Performed By: #### C SUITE #### [facility] [address] [place] [address] Dr. Eboni Smith ALT [Catalytic activity/Vol] 23 U/L Normal 14-59 [facility] Comment on above: Performed By: #### C SUITE #### [facility] [address] [address] [address] Eboni Smith Anion gap [Moles/Vol] 12.1 mmol/L Normal [facility] Comment on above: Performed By: #### C SUITE #### [facility] [address] [place] [address] Dr. Eboni Smith AST [Catalytic activity/Vol] 10 U/L Critically low 15-37 [facility] Comment on above: Performed By: #### C SUITE #### [facility] [address] [place] [address] Dr. Eboni Smith Bilirubin [Mass/Vol] 0.3 mg/dL Normal 0.2-1.0 [facility] Comment on above: Performed By: #### C SUITE #### [facility] [address] [place] [address] Dr. Eboni Smith Calcium [Mass/Vol] 8.9 mg/dL Normal 8.5-10.1 [facility] Comment on above: Performed By: #### C SUITE #### [facility] [address] [place] [address] Dr. Eboni Smith Chloride [Moles/Vol] 104 mmol/L Normal 98-107 [facility] Comment on above: Performed By: #### C SUITE #### [facility] [address] [place] [address] Dr. Eboni Smith CO2 [Moles/Vol] 27.5 mmol/L Normal 21.0-32.0 [facility] Comment on above: Performed By: #### C SUITE #### [facility] [address] [place] [address] Dr. Eboni mSith Creatinine [Mass/Vol] 0.88 mg/dL Normal 0.55-1.02 [facility] Comment on above: Performed By: #### C SUITE #### [facility] [address] [address] [address] Eboni Smith EGFR-AF ANGOLAN >60 Normal >=60 [facility] Comment on above: Performed By: #### C SUITE #### [facility] [address] [place] [address] Dr. Eboni Smith EGFR-NON AF ANGOLAN >60 Normal >=60 [facility] Comment on above: Performed By: #### C SUITE #### [facility] [address] [place] [address] Dr. Eboni Smith Globulin (S) [Mass/Vol] 3.4 g/dL Normal [facility] Comment on above: Performed By: #### C SUITE #### [facility] [address] [place] [address] Dr. Eboni Smith Glucose [Mass/Vol] 105 mg/dL Normal 74-106 [facility] Comment on above: Performed By: #### C SUITE #### [facility] [address] [place] [address] Dr. Eboni Smith Potassium [Moles/Vol] 4.3 mmol/L Normal 3.5-5.1 [facility] Comment on above: Performed By: #### C SUITE #### [facility] [address] [place] [address] Dr. Eboni Smith Protein [Mass/Vol] 6.9 g/dL Normal 6.4-8.2 [facility] Comment on above: Performed By: #### C SUITE #### [facility] [address] [place] [address] Dr. Eboni Smith Sodium [Moles/Vol] 139 mmol/L Normal 136-145 [facility] Comment on above: Performed By: #### C SUITE #### [facility] [address] [place] [address] Dr. Eboni Smith Urea nitrogen [Mass/Vol] 26.0 mg/dL Critically high 7.0-18.0 [facility] Comment on above: Performed By: #### C SUITE #### [facility] [address] [place] [address] Dr. Eboni Smith Urea nitrogen/Creatinine [Mass ratio] 29.5 mg/mg Normal [facility] Comment on above: Performed By: #### C SUITE #### [facility] [address] [place] [address] Dr. Eboni Smith SED RATE WESTERGREN 2021 SED RATE 8 mm/hr Normal <=30 [facility] Comment on above: Performed By: #### C BC #### [facility] [address] [place] [address] Dr. Eboni Smith UA RANDOM W/MICROSCOPICon BACTERIA TRACE Abnormal NONE SEEN [facility] Comment on above: Performed By: #### C SUITE #### [facility] [address] [place] [address] Dr. Eboni Smith Bilirubin Ql (U) Negative Normal NEGATIVE [facility] Comment on above: Performed By: #### C SUITE #### [facility] [address] [place] [address] Dr. Eboni Smith CAST NONE SEEN Normal NONE SEEN [facility] Comment on above: Performed By: #### C SUITE #### [facility] [address] [place] [address] Dr. Eboni Smith Clarity (U) SL CLOUDY Abnormal CLEAR [facility] Comment on above: Performed By: #### C SUITE #### [facility] [address] [place] [address] Dr. Eboni Smith Color (U) LT. YELLOW Normal YELLOW [facility] Comment on above: Performed By: #### C SUITE #### [facility] [address] [place] [address] Dr. Eboni Smith Crystals LM Nom (Urine sed) NONE SEEN Normal NONE SEEN [facility] Comment on above: Performed By: #### C SUITE #### [facility] [address] [place] [address] Dr. Eboni Smith Epithelial cells LM Ql (Urine sed) RARE Normal NONE SEEN /RARE [facility] Comment on above: Performed By: #### C SUITE #### [facility] [address] [place] [address] Dr. Eboni Smith Glucose Ql (U) Negative Normal NEGATIVE [facility] Comment on above: Performed By: #### C SUITE #### [facility] [address] [place] [address] Dr. Eboni Smith Hemoglobin Ql (U) SMALL Abnormal NEGATIVE [facility] Comment on above: Performed By: #### C SUITE #### [facility] [address] [place] [address] Dr. Eboni Smith Ketones Ql (U) Negative Normal NEGATIVE [facility] Comment on above: Performed By: #### C SUITE #### [facility] [address] [place] [address] Dr. Eboni Smith LEUKOCYTES SMALL Abnormal NEGATIVE [facility] Comment on above: Performed By: #### C SUITE #### [facility] [address] [place] [address] Dr. Eboni Smith MUCOUS NONE SEEN Normal NONE SEEN [facility] Comment on above: Performed By: #### C SUITE #### [facility] [address] [place] [address] Dr. Eboni Smith Nitrite Ql (U) Negative Normal NEGATIVE [facility] Comment on above: Performed By: #### C SUITE #### [facility] [address] [place] [address] Dr. Eboni Smith pH (U) 5.0 [pH] Normal 5-9 [facility] Comment on above: Performed By: #### C SUITE #### [facility] [address] [place] [address] Dr. Eboni Smith RBC 0-2 Normal 0-2 [facility] Comment on above: Performed By: #### C SUITE #### [facility] [address] [place] [address] Dr. Eboni Smith SPEC GRAVITY 1.025 Normal 1.005-<=1.02 5 [facility] Comment on above: Performed By: #### C SUITE #### [facility] [address] [address] [address] Eboni Smith UA PROTEIN Negative Normal NEGATIVE/ TRACE [facility] Comment on above: Performed By: #### C SUITE #### [facility] [address] [address] [address] Eboni Smith Urobilinogen Qn (U) 0.2 {Lora'U}/dL Normal 0.2 - 1. 0 [facility] Comment on above: Performed By: #### C SUITE #### [facility] [address] [address] [address] Eboni Smith WBC 2-5 Abnormal NONE SEEN [facility] Comment on above: Performed By: #### C SUITE #### [facility] [address] [address] [address] Eboni Smith XR LSPINE 2_3 VIEWSon [...] EULALIA MORALES Date: 2022-02-28 16:24 Normal [facility] COVID-19 Positive/Negativeon 03-15-2021 SARS-CoV-2 (COVID-19) N gene TERRIE+probe Ql (Resp) Negative Negative [facility] Comment on above: Testing for SARS-CoV -2 by RT-PCRThis test was developed and its performance characteristics determined by [employer] and validated at the [facility]. This test has not been FDA [...] Reminder/Recall done 08/25/19 done, results negative Normal [facility] Operative Reporton 9 Operative Report Result type: Progres s Note-Physician Result date: September 02, 2019 14:16 EST Result status: Auth (Verified) Result title: Local Female Cystoscopy w/ or w/o UD - FT Performed by: David ALARCON MD on September 02, 2019 14:17 EST Verified by: David ALARCON MD on September 02, 2019 14:17 EST Encounter info: [id number], [facility], Outpatient, 09/02/2019 - 09/02/2019 * Final [...] and Time Signed: 09/02/19 14:17 EST Normal [facility] Comment on above: Result Comment: Elec [...] with antibiotic coverage, Follow up arranged. Normal [facility] Comment on above: Result Comment: ERRO R - WRONG FOLDER Electronically Signed By: David ALARCON MD\.br\Date and Time Signed: 09/02/19 14:17 EST Coding Summary.on 09-03-2019 Coding Summary. CODING DATE: 09/03/2019 FINAL [facility] DSC STATUS: Home (Routine DC) PAYOR: Medicare [...] Morillo Date Saved: 09/03/2019 09:50 am Normal [facility] Main OR Intraoperative Recor don 09-02-2019 Main OR Intraoperative Record IntraOp Document Type FTURO Summary Primary Physician: David ALARCON MD Finalized Date/Time: 09/02/19 14:16:24 Pt. Name: BASHIR COATS/Sex: 1955 Female Med Rec #: [id number] Physician: David ALARCON MD Financial #: [id number] Pt. Type: O Room/Bed: / Admit/Disch: 09/02/19 [...] Noemi Stevens Role Performed Surgeon - Primary Authors Motivational - Primary Scrub - Primary Time In [...] Last Modified By: Jose De Jesus MORRISSEY, RUIBO, Hilda 09/02/19 14:15:30 General Case Data FTURO [...] De Jesus MORRISSEY, RUBIO, Applicable) Yarely Stevens ORDER CALLER, Noemi Time Out Complete 09/02/19 14:11:00 Allergies [...] De Jesus MORRISSEY RN, Kelly 09/02/19 14:16 [facility] Main OR Preoperative Recordo n 09-02-2019 Main OR Preoperative Record Holding Area Document Type FTURO Summary Primary Physician: David AALRCON MD Finalized Date/Time: 09/02/19 14:09:52 Pt. Name: BASHIR COATS/Sex: 1955 Female Med Rec #: [id number] Physician: David ALARCON MD Financial #: [id number] Pt. Type: O Room/Bed: / Admit/Disch: 09/02/19 [...] Jesus MORRISSEY RN, Kelly 09/02/19 14:09 Normal [facility] MRI LUMBAR SPINE WO CONTRAST on 08-07-2018 MRI LUMBAR SPINE WO CONTR[facility] [address] [place], [place] [address] Patient Name: BASHIR COATS : 1955Sex: FAge: Race: WhiteMRN: [id number]. Location: 84Patient Status: DVisit #: [id number] Date: 07/10/2018 12:35:00 PMCompleted Date: 08/07/2018 02:49 PMRequesting Provider: GARETH REYES Attending Provider: Report Copy To: Signs & Symptoms: M54.5 Low back pain T56Kocgjjx: Kacie, NO FB per [facility] auth # [id number] 07/29/18-09/27/18 [id number] *erComments: , , , Ordering Provider - GARETH REYES MD , Exam: MRI LUMBAR SPINE WO CONTRASTAccession #: [id number] MRI LUMBAR SPINE WO CONTRAST 08/07/2018 2:49 [...] above. Electronically signed by:Parul Whitfield. Transcribed by: [email or web address], User Resident: Electronically Signed by: PARUL WHITFIELD @ 08/08/2018 02:33 PM Normal [facility] Comment on above: Order Comment: , , = ========= , Ordering Provider - GARETH REYES MD , Operative Reporton 8 Operative Report MR#: [id number] [facility] Pt. Name: Bashir Coats Room #: 0C Discharge Date: Birthdate: 1955 OPERATIVE REPORTDATE OF SURGERY: 07/31/2018SURGEON: Pavel Leon M.D.PREOPERATIVE DIAGNOSIS: Soft tissue calcifications, right small fingertip.POSTOPERATI VE DIAGNOSIS: Soft tissue calcifications, right small fingertip.PROCEDURE: Excision of calcific lesions, right small finger tip.RECOVERY COACH: Christopher Gay M.D.ANESTHESIA: Local 1% plain lidocaine.INDICATION [...] 07/31/2018/11:05 Mey/Pavel Leon M.D.Date Trans: 07/31/2018 12:55 P/Johnson_JN:[id number]: Gee Merchant D.O. [address] [facility] [id number] Normal [facility] Vital Signs Date Time Vital Sign Value Performing Clinician Facility 07-02-2024 14:40-0400 Body height 152.4 cm DO Kudarom Work Phone: [facility] 07-02-2024 14:40-0400 Body mass index (BMI) [Ratio] 34.9 kg/m2 DO Kudarom Work Phone: [facility] 07-02-2024 14:40-0400 Body weight 81.19 kg DO Kudarom Work Phone: [facility] 07-02-2024 14:40-0400 Diastolic blood pressure 78 mm[Hg] DO Steve Ball Work Phone: [facility] 07-02-2024 14:40-0400 Heart rate 72 /min DO Steve Ball Work Phone: [facility] 07-02-2024 14:40-0400 Respiratory rate 12 /min DO Steve Ball Work Phone: [facility] 07-02-2024 14:40-0400 Systolic blood pressure 141 mm[Hg] DO Steve Ball Work Phone: [facility] 06-09-2024 14:21-0400 Body height 152.4 cm DO Steve Ball Work Phone: [facility] 06-09-2024 14:21-0400 Body mass index (BMI) [Ratio] 34.2 kg/m2 DO Steve Ball Work Phone: [facility] 06-09-2024 14:21-0400 Body weight 79.37 kg DO Steve Ball Work Phone: [facility] 02-06-2024 12:05-0400 Body height 152.4 cm DO Steve Ball Work Phone: [facility] 02-06-2024 12:05-0400 Body mass index (BMI) [Ratio] 34.2 kg/m2 DO Steve Ball Work Phone: [facility] 02-06-2024 12:05-0400 Body temperature 98 [degF] DO Steve Ball Work Phone: [facility] 02-06-2024 12:05-0400 Body weight 79.37 kg DO Steve Ball Work Phone: [facility] 02-06-2024 12:05-0400 Diastolic blood pressure 70 mm[Hg] DO Steve Ball Work Phone: [facility] 02-06-2024 12:05-0400 Heart rate 76 /min DO Steve Ball Work Phone: [facility] 02-06-2024 12:05-0400 Respiratory rate 16 /min DO Steve Ball Work Phone: [facility] 02-06-2024 12:05-0400 SaO2% (BldA) [Mass fraction] 97 % DO Steve Ball Work Phone: [facility] 02-06-2024 12:05-0400 Systolic blood pressure 138 mm[Hg] DO Steve Ball Work Phone: [facility] 12-26-2023 12:07-0400 Body height 152.4 cm DO Steve Ball Work Phone: [facility] 12-26-2023 12:07-0400 Body mass index (BMI) [Ratio] 34.2 kg/m2 DO Steve Ball Work Phone: [facility] 12-26-2023 12:07-0400 Body temperature 97.8 [degF] DO Steve Ball Work Phone: [facility] 12-26-2023 12:07-0400 Body weight 79.37 kg DO Steve Ball Work Phone: [facility] 12-26-2023 12:07-0400 Diastolic blood pressure 64 mm[Hg] DO Steve Ball Work Phone: [facility] 12-26-2023 12:07-0400 Heart rate 84 /min DO Steve Ball Work Phone: [facility] 12-26-2023 12:07-0400 Respiratory rate 16 /min DO Steve Ball Work Phone: [facility] 12-26-2023 12:07-0400 SaO2% (BldA) [Mass fraction] 98 % DO Steve Ball Work Phone: [facility] 12-26-2023 12:07-0400 Systolic blood pressure 116 mm[Hg] DO Steve Ball Work Phone: [facility] 10-25-2023 13:45-0500 Body height 154.94 cm Alex Neely Other [facility] 10-25-2023 13:45-0500 Body mass index (BMI) [Ratio] 34.38 kg/m2 Alex Neely Other [employer] Other 10-25-2023 13:45-0500 Body weight 82.56 kg Alex Neely Other [employer] Other 10-25-2023 13:45-0500 Body weight 82.55 kg DO Steve Ball Work Phone: [facility] 10-09-2023 15:00-0500 Body height 154.94 cm Steve Ball Other [employer] Other 10-09-2023 15:00-0500 Body mass index (BMI) [Ratio] 34.38 kg/m2 Steve Ball Other [employer] Other 10-09-2023 15:00-0500 Body weight 82.56 kg Steve Ball Other [employer] Other 10-09-2023 15:00-0500 Diastolic blood pressure 81 mm[Hg] Steve Ball Other [employer] Other 10-09-2023 15:00-0500 Respiratory rate 12 /min Steve Ball Other [employer] Other 10-09-2023 15:00-0500 Systolic blood pressure 130 mm[Hg] Steve Ball Other [employer] Other 06-07-2023 12:45-0400 Body height 154.94 cm Chiara Damon Other [employer] Other 06-07-2023 12:45-0400 Body mass index (BMI) [Ratio] 34.27 kg/m2 Chiara Damon Other [employer] Other 06-07-2023 12:45-0400 Body temperature 98.9 [degF] Chiara Marisol Other [employer] Other 06-07-2023 12:45-0400 Body weight 82.28 kg Chiara Marisol Other [employer] Other 06-07-2023 12:45-0400 Diastolic blood pressure 75 mm[Hg] Chiara Marisol Other [employer] Other 06-07-2023 12:45-0400 Respiratory rate 18 /min Chiara Marisol Other [employer] Other 06-07-2023 12:45-0400 SaO2% (BldA) [Mass fraction] 98 % Chiara Marisol Other [employer] Other 06-07-2023 12:45-0400 Systolic blood pressure 155 mm[Hg] Chiara Marisol Other [employer] Other 01-29-2023 15:50-0400 Body height 154.94 cm Chiara Marisol Other [employer] Other 01-29-2023 15:50-0400 Body mass index (BMI) [Ratio] 34.01 kg/m2 Chiara Marisol Other [employer] Other 01-29-2023 15:50-0400 Body temperature 98 [degF] Chiara Marisol Other [employer] Other 01-29-2023 15:50-0400 Body weight 81.65 kg Chiara Marisol Other [employer] Other 01-29-2023 15:50-0400 Diastolic blood pressure 81 mm[Hg] Chiara Marisol Other [employer] Other 01-29-2023 15:50-0400 Respiratory rate 18 /min Chiara Marisol Other [employer] Other 01-29-2023 15:50-0400 SaO2% (BldA) [Mass fraction] 93 % Chiara Marisol Other [employer] Other 01-29-2023 15:50-0400 Systolic blood pressure 153 mm[Hg] Chiara Marisol Other [employer] Other 12-16-2022 13:55-0500 Body height 154.94 cm Chiara Marisol Other [employer] Other 12-16-2022 13:55-0500 Body mass index (BMI) [Ratio] 34.84 kg/m2 Chiara Marisol Other [employer] Other 12-16-2022 13:55-0500 Body temperature 98.8 [degF] Chiara Marisol Other [employer] Other 12-16-2022 13:55-0500 Body weight 83.64 kg Chiara Marisol Other [employer] Other 12-16-2022 13:55-0500 Diastolic blood pressure 69 mm[Hg] Chiara Marisol Other [employer] Other 12-16-2022 13:55-0500 Respiratory rate 18 /min Chiara Marisol Other [employer] Other 12-16-2022 13:55-0500 Systolic blood pressure 140 mm[Hg] Chiara Damon Other [facility] [employer] Other 12-06-2022 13:36-0500 Diastolic blood pressure 66 mm[Hg] DO Steve Ball Work Phone: [facility] 12-06-2022 13:36-0500 Heart rate 77 /min DO Steve Ball Work Phone: [facility] 12-06-2022 13:36-0500 Respiratory rate 16 /min DO Steve Ball Work Phone: [facility] 12-06-2022 13:36-0500 SaO2% (BldA) [Mass fraction] 98 % DO Steve Ball Work Phone: [facility] 12-06-2022 13:36-0500 Systolic blood pressure 118 mm[Hg] DO Steve Ball Work Phone: [facility] 12-06-2022 12:07-0500 Body height 152.4 cm DO Steve Ball Work Phone: [facility] 12-06-2022 12:07-0500 Body temperature 98.7 [degF] DO Steve Ball Work Phone: [facility] 12-06-2022 12:07-0500 Body weight 80.73 kg DO Steve Ball Work Phone: [facility] 09-20-2022 14:32-0500 Diastolic blood pressure 80 mm[Hg] DO Steve Ball Work Phone: [facility] 09-20-2022 14:32-0500 Heart rate 72 /min DO Steve Ball Work Phone: [facility] 09-20-2022 14:32-0500 Respiratory rate 16 /min DO Steve Ball Work Phone: [facility] 09-20-2022 14:32-0500 SaO2% (BldA) [Mass fraction] 98 % DO Steve Ball Work Phone: [facility] 09-20-2022 14:32-0500 Systolic blood pressure 140 mm[Hg] DO Steve Ball Work Phone: [facility] 09-20-2022 14:02-0500 Inhaled oxygen flow rate 6 L/min DO Steve Ball Work Phone: [facility] 09-20-2022 12:20-0500 Body height 149.86 cm DO Steve Ball Work Phone: [facility] 09-20-2022 12:20-0500 Body temperature 99.2 [degF] DO Steve Ball Work Phone: [facility] 09-20-2022 12:20-0500 Body weight 79.83 kg DO Steve Ball Work Phone: [facility] Encounters Encounter Date Encounter Type Care Provider Facility Start: 07-02-2024 End: 07-02-2024 ambulatory DO Steve Ball Work Phone: [facility] Work Phone: Start: 07-02-2024 End: 07-02-2024 Patient encounter procedure DO Steve Ball Work Phone: [facility] Work Phone: Start: 06-29-2024 Patient encounter procedure DO Steve Ball Work Phone: [facility] Start: 06-17-2024 Non-patient / Non-visit DO Steve Ball [facility] Phone[facility] Work Phone: Start: 06-09-2024 End: 06-09-2024 ambulatory DO Steve Ball Work Phone: [facility] Work Phone: Start: 06-09-2024 End: 06-09-2024 Patient encounter procedure DO Steve Ball Work Phone: [facility] Work Phone: Start: 06-05-2024 End: 06-05-2024 Patient encounter procedure DO Steve Ball Work Phone: [facility] [place] Work Phone: Start: 06-05-2024 End: 06-05-2024 ambulatory DO Steve Ball Work Phone: [facility] Work Phone: Start: 05-29-2024 End: 05-29-2024 ambulatory BERTIN W CORRAL Not Available Start: 05-27-2024 End: 05-27-2024 ambulatory [facility] Work Phone: Start: 05-27-2024 End: 05-27-2024 Patient encounter procedure [facility] Gastro[facility]ology Work Phone: Start: 05-15-2024 End: 05-15-2024 ambulatory BERTIN W CORRAL Not Available Start: 03-18-2024 End: 03-18-2024 ambulatory BERTIN W CORRAL Not Available Start: 02-26-2024 End: 02-26-2024 ambulatory BERTIN W CORRAL Not Available Start: 02-06-2024 End: 02-06-2024 ambulatory DO Steve Ball Work Phone: [facility] Work Phone: Start: 02-06-2024 End: 02-06-2024 Patient encounter procedure DO Steve Ball Work Phone: [facility] Work Phone: Start: 01-22-2024 End: 01-22-2024 ambulatory BERTIN W CORRAL Not Available Start: 01-14-2024 End: 01-14-2024 Patient encounter procedure DO Steve Ball Work Phone: [facility] [place] Work Phone: Start: 01-14-2024 End: 01-14-2024 ambulatory DO Steve Ball Work Phone: [facility] Work Phone: Start: 12-27-2023 End: 12-27-2023 ambulatory BERTIN CORRAL Not Available Start: 12-26-2023 End: 12-26-2023 Patient encounter procedure DO Steve Armendariz Work Phone: [facility] Vascular Surgery Work Phone: Start: 12-25-2023 Non-patient / Non-visit DO Steve Armendariz Work Phone: [facility] [employer] Work Phone: Start: 12-04-2023 End: 12-04-2023 ambulatory BERTIN CORRAL Not Available Start: 10-25-2023 End: 10-25-2023 ambulatory Alex Neely Other [facility] [employer] Other Start: 10-25-2023 Office outpatient visit 15 minutes Alex Neely [facility] Gastroenterology Start: 10-25-2023 End: 10-25-2023 Patient encounter procedure DO Steve Armendariz Work Phone: [facility] Gastroenterology Work Phone: Start: 10-09-2023 End: 10-09-2023 ambulatory Steve Armendariz Other [facility] [employer] Other Start: 10-09-2023 Office outpatient visit 25 minutes Steve Marcello [facility] Start: 10-09-2023 Telephone encounter Steve Marcello [facility] Start: 06-07-2023 Office outpatient visit 15 minutes Chiara Damon [facility] Start: 06-07-2023 End: 06-07-2023 ambulatory DO Steve Armendariz Work Phone: [facility] Work Phone: Start: 06-07-2023 End: 06-07-2023 Patient encounter procedure DO Steve Armendariz Work Phone: [facility] Work Phone: Start: 02-08-2023 End: 02-09-[address] DOCTOR BROWN Facility:[facility] Start: 01-29-2023 End: 01-29-2023 ambulatory Chiara Damon Other [facility] [employer] Other Start: 01-29-2023 Office outpatient visit 15 minutes Chiara Damon [facility] Start: 12-16-2022 End: 12-16-2022 Patient encounter procedure DO Steve Ball Work Phone: [facility] Work Phone: Start: 12-16-2022 End: 12-16-2022 ambulatory DO Steve Armendariz Work Phone: [facility] Work Phone: Start: 12-16-2022 Office outpatient visit 15 minutes Chiara Damon [facility] Start: 12-06-2022 Telephone encounter Steve Armendariz [facility] Start: 12-06-2022 End: 12-06-2022 Admission to same day surgery center DO Steve Ball Work Phone: [facility] Work Phone: Start: 12-06-2022 End: 12-06-2022 ambulatory DO Steve Armendariz Work Phone: [facility] Work Phone: Start: 09-28-2022 End: 09-29-[address] DOCTOR BROWN Facility:[facility] Start: 09-20-2022 End: 09-20-2022 Admission to same day surgery center DO Steve Armendariz Work Phone: [facility] Work Phone: Start: 09-18-2022 End: 09-19-[address] ANGELIC VICK Facility:[facility] Start: 09-18-2022 End: 09-18-2022 ambulatory DO Steve Marcello Work Phone: [facility] Work Phone: Start: 09-18-2022 End: 09-18-2022 Patient encounter procedure DO Steve Armendariz Work Phone: [facility] Start: 07-26-2022 End: 08-25-[address] STEVE ARMENDARIZ Facility:[facility] Start: 06-09-2022 End: 06-10-[address] DOCTOR BROWN Facility:[facility] Start: 04-24-2022 End: 05-19-[address] STEVE ARMENDARIZ Facility:[facility] Start: 04-20-2022 Adult health examination Chiara Damon Other [employer] Other Start: 03-10-2022 End: 03-11-[address] STEVE ARMENDARIZ Facility:[facility] Start: 02-28-2022 End: 03-01-[address] STEVE ARMENDARIZ Facility:[facility] Start: 03-15-2021 End: 03-15-2021 Patient encounter procedure Pedro Ruiz Work Phone: -Pre-Surgical Testing Start: 08-07-2018 End: 08-08-2018 Patient encounter procedure GARETH REYES Facility:[facility] Start: 07-31-2018 End: 08-01-2018 Patient encounter procedure PAVEL LEON Facility:[facility] Procedures Date Procedure Procedure Detail Performing Clinician [...] limb veins US venous duplex LE BI [facility] Start: 01-14-2024 US Lower extremity v ein - bilateral [facility] Start: 12-06-2022 [facility] Start: 09-20-2022 [facility] MG Breast - bilatera l Screening [facility] Patient Education [facility] Work Phone: Payers Date Payer Category Payer Unknown [id number] 1960 Private Health Insurance 101 [id number] 1955 Unknown [id number] [id number] 1954 Unknown [id number] 2.16.840.1.351110.3.579.2.647 1954 Unknown [id number] 2.16.840.1.042901.3.579.2.593 1954 Unknown [id number] 2.16.840.1.272824.3.579.2.593 1954 Unknown [id number] 2.16.840.1.482165.3.579.2.593 1954 Unknown [id number] 2.16.840.1.038771.3.579.2.593 1954 Unknown [id number] 2.16.840.1.420017.3.579.2.593 1954 Unknown [id number] 2.16.840.1.530951.3.579.2.593 1954 Unknown [id number] 2.16.840.1.343013.3.579.2.593 1954 Unknown [id number] 2.16.840.1.264892.3.579.2.593 1954 Unknown [id number] 2.16.840.1.736006.3.579.2.593 1954 Unknown [id number] 2.16.840.1.281115.3.579.2.1259 1954 Unknown [id number] 2.16.840.1.694840.3.579.2.1259 1954 Unknown [id number] 2.16.840.1.789378.3.579.2.1259 1954 Unknown [id number] 2.16.840.1.269683.3.579.2.1259 1954 Unknown [id number] 2.16.840.1.831662.3.579.2.1259 1954 Unknown [id number] 2.16.840.1.783425.3.579.2.1259 1954 Unknown [id number] 2.16.840.1.957545.3.579.2.1259 Medicaid [id number] Private Health Insurance [employer] [id number] Self-pay [id number] Unknown [id number] Unknown [employer] [id number] Social History Date Type Detail Facility Tobacco smoking status NHIS Unknown if ever smoked [facility] Start: 1955 Sex Assigned At Female F [facility] Start: 12-06-2022 End: 12-03-2023 Tobacco smoking status NHIS Never smoked tobacco (finding) [facility] Sex Assigned At Sex Assigned At Bir th [employer] Other Goals Date Patient Goal Desired Activity [...] dialy. Return visit here in six months [employer] Other 12-26-2023 Evaluation note* Encounter Date Diagnosis [...] Echo w/ normal LVEF Sep, Atherosclerosis of grayling arteries of extremities with intermittent claudication, bilateral [...] f/u Rheumatology CT chest, Echo, PFT normal [employer] Other 08-24-2023 Evaluation note* Encounter Date Diagnosis [...] the leg home care material was printed [employer] Other 04-17-2023 Evaluation note* Encounter Date Diagnosis Assessment Notes Treatment Notes Treatment Clinical Notes Jan, Bronchitis (ICD-10 - J40) Acute bronchitis material was printed Drink plenty fluids, get plenty of rest. Take your doxycycline at home, 1 tablet twice a day for 10 days. Take the prednisone as prescribed until gone. Take Robitussin, [id number] cough medicine, as needed for cough. Follow-up with your family physician if no improvement in 2 to 3 days [employer] Other 03-04-2023 Evaluation note* Encounter Date Diagnosis [...] Dec, Other Contusion mater ial was printed [employer] Other 02-22-2023 Evaluation note* Encounter Date Diagnosis Assessment Notes Treatment Notes Treatment Clinical Notes Nov, Schatzki's ring of distal esophagus (ICD-10 - K22.2) Nov, Eckert's esophagus without dysplasia (ICD-10 - K22.70) [employer] Other [facility] general Narrative - Reported* Type Description Date Medical History scleroderma Medical History back pain Medical History GERD Medical History esophageal stricture Surgical History carpal tunnel release Surgical History EGD 11/2022 Hospitalization History blood clot in right leg 2005 [employer] Other 02-01-2023 History general Narrative - Reported* Type Description Date Medical History scleroderma Medical History back pain Medical History GERD Medical History esophageal stricture Surgical History carpal tunnel release Surgical History EGD 11/2022 Surgical History Colonoscopy 2020 Hospitalization History blood clot in right leg 2005 [employer] Other evaluqyvsb noteNo assessment information available [facility] Diagnosis Onset Date Resolution Status Dysphagia acute Ulcerative esophagitis acute [facility] Work Phone: Evaluation note* Diagnosis Onset Date Resolution Status Ulcerative esophagitis acute [facility] Work Phone: Evaluation noteNo InformationNort [employer] Other Evaluation note* Diagnosis Onset Date Resolution Status Bleeding from varicose veins of left lower extremity acute [facility] Work Phone: Evaluation note* Diagnosis Onset Date Resolution Status Dysphagia acute GERD (gastroesophageal reflux disease) [facility] Work Phone: Evaluation note* Diagnosis Onset Date Resolution Status Dysphagia acute GERD (gastroesophageal reflux disease) acute Dysphagia acute GERD (gastroesophageal reflux disease) [facility] Work Phone: Evaluation note* Diagnosis Onset Date Resolution Status Dysphagia acute Dysphagia acute Chronic venous insufficiency of lower extremity acute GERD (gastroesophageal reflux disease) acute Medicare annual wellness visit, subsequent acute Scleroderma of esophagus acu te Screening mammogram for breast cancer acute [facility] Work Phone: Hospital Discharge instructions Additional Instructions [...] if you have any problems. -Office number [phone] Work Phone: Summary Purpose Family History [...] 6 week follow up; FF done at [facility] Reason for Visit Bleeding from varico se [...] and content) DATE CREATED AUTHOR 09/14/2018 [facility] DATE CREATED AUTHOR AUTHOR'S ORGANIZ ATION 09/10/2019 [facility] DATE CREATED AUTHOR AUTHOR'S ORGANIZ ATION 02/16/2023 [facility] DATE CREATED AUTHOR AUTHOR'S ORGANIZ ATION 05/31/2024 [facility] DATE CREATED AUTHOR AUTHOR'S ORGANIZ ATION 06/08/2024 [facility] ysician Group Goals (unrecognized section and content) [...] BE BASED ON THE PRIMARY CLINICAL RECORDS. [facility] W[facility]U ? [facility]. provides no warranty or guarantee of the accuracy or completeness of information in this document.
== END 2024-07-11 12:51 | disposition home or self-care (01) ==
LOC: MAMMO 12:50
PROVIDERS: PCP Internal Medicine; Visit Provider Internal Medicine
DX: M47.816 Spondylosis without myelopathy or radiculopathy, lumbar region (principal); R10.9 Unspecified abdominal pain; Z12.31 Encounter for screening mammogram for malignant neoplasm of breast; Z80.7 Family history of other malignant neoplasms of lymphoid, hematopoietic and related tissues; M51.36 Other intervertebral disc degeneration, lumbar region
CPT/HCPCS: 72114; 77063; 77067

== ENCOUNTER 2024-07-25 12:48 | Outpatient (RCR) | payer OTHER, SELFPAY | END 2024-09-23 11:56 | disposition home or self-care (01) | LOC: PT 12:48 | PROVIDERS: PCP Internal Medicine; Visit Provider Internal Medicine | DX: M47.816 Spondylosis without myelopathy or radiculopathy, lumbar region (principal); M54.50 Low back pain, unspecified | CPT/HCPCS: 97010; 97012; 97014; 97110; 97112; 97140; 97163 ==

== ENCOUNTER 2024-09-16 12:55 | Outpatient (OUT) | payer OTHER, SELFPAY ==
--- OUTSIDE RECORDS SUMMARY | 2024-09-16 13:01 | XMS_ITS | CCD ---
Author Organization [facility] Inform ion [facility] Care Team Providers Care Sample Examiner Name Role Phone EDUARDOE, PAVEL Unavailable Unavailable SKIE, PAVEL Unavailable Unavailable PAVLOCK, MAX CHAZ Unavailable Unavailable SELF, REFERRED Unavailable Unavailable KS Unavailable Unavailable SKIE, PAVEL Unavailable Unavailable ELGAFY, GARETH K Unavailable Unavailable ELGAFY, GARETH K Unavailable Unavailable PAVLOCK, MAX CHAZ Unavailable Unavailable PAVLOCK, MAX CHAZ Unavailable Unavailable Pedro Ruiz Attending Provider [phone] Steve Armendariz Primary Care Provider [phone] DO Steve Armendariz Primary Care Provider MD Alex Newberry Attending Provider DO Steve Armendariz Primary Care Provider MD Alex Newberry Attending Provider [phone] VASHTI Damon Attending Provider Steve Armendariz Unavailable Chiara Damon Unavailable LILIAM, DR LEVI Admitting Unavailable BALL, DR LEVI [...] Unavailable MISC, DR DEL RIO Consulting Unavailable LILIAM, DR LEVI Primary Care Unavailable DO Steve Armendariz Primary Care Provider [phone] VASHTI Damon Attending Provider [phone] Alex Newberry Unavailable DO Steve Armendariz Primary Care Provider MD Angelic Slaughter Attending Provider DO Steve Armendariz Primary Care Provider MD Miguel Sarah Attending Provider Angelic Slaughter Admitting UnavailAngelic Dodge Attending Unavailadri e Steve Armendariz [facility] Unavailable Miguel Sarah Admitting Unavailable Miguel Sarah Attending Unavailable Steve Armendariz Primary [facility] Unavailable Steve Armendariz MD Primary Care Provider BERTIN CORRAL Attending Unavailable BERTIN CORRAL Attending Unavailable BERTIN CORRAL Attending Unavailable BERTIN CORRAL Attending Unavailable BERTIN CORRAL Attending Unavailable BERTIN CORRAL Attending Unavailable BERTIN CORRAL Attending Unavailable SUJEY CAMARGO Attending Unavailable Allergies Allergy Classification Reported Allergen(s) Allergy Type Date of Onset Reaction(s) Facility Aminoglycosides (antibiotic) (1 source) Gentamicin Sulfate (SENIOR CARE) Drug Allergy 01-31-20 18 Unknown Reaction [facility] Dihydrofolate Reductase Inhibitors (antibiotic) (1 source) Trimethoprim Drug Allergy 01-31-20 Headache [facility] Penicillins (antibiotic) (1 source) Penicillins Drug Allergy 01-31-20 18 Swelling of Lip/Tongue/Th roat [facility] Sulfonamides (antibiotic) (1 source) Sulfamethoxazole Drug Allergy 01-31-20 Headache [facility] (20 sources) Gentamicin Sulfate (SENIOR CARE); Translations: [GENTAMICIN] Drug Allergy 04-21-20 15 Unknown [facility] Rep[facility] (12 sources) meloxicam Drug Allergy 07-31-20 18 Rash [facility] Rep[facility] (14 sources) Penicillins Drug allergy (disorder) 06-07-20 10 Swelling of Lip/Tongue/Th roat [facility] Rep[facility] (10 sources) Sulfonamides (Antibiotic) Drug allergy (disorder) 07-31-20 18 Unknown Reaction [facility] Rep[facility] (19 sources) Sulfamethoxazole Drug Allergy 01-31-[address] [facility] (12 sources) Trimethoprim Drug Allergy 01-31-[address] [facility] (7 sources) meloxicam Drug Allergy Unknown [email or web address] Other (7 sources) Sulfamethoxazole / Trimethoprim Drug Allergy Unknown [email or web address] Other (7 sources) Sulfonamides (Antibiotic) Propensity to adverse reactions Unknown [email or web address] Other (7 sources) Penicillian V Potassium Propensity to adverse reactions Unknown [email or web address] Other (15 sources) gentamycin Propensity to adverse reactions 10-25-19 24 Unknown, Unknown Reaction [facility] (1 source) meloxicam Drug Allergy [facility] Repository (4 sources) Penicillin Drug Allergy Comment:lips swell up [email or web address] Other (12 sources) Penicillin V Drug Allergy 10-25-19 24 Unknown, Unknown Reaction [facility] (4 sources) Substance with sulfonamide structure and antibacterial mechanism of action (substance) Drug allergy 12-07-19 16 Unknown [email or web address] Other (1 source) Allergies Reconciled Propensity to adverse reactions Unknown [email or web address] Other (12 sources) Gentamicin in Saline Drug allergy 10-25-19 24 Comment:made eye bloody [facility] (1 source) patient allergy list reviewed by nurse or physicia Propensity to adverse reactions 12-07-19 16 Comment:Done [email or web address] Other (3 sources) meloxicam Drug Allergy 07-03-20 23 Unknown [facility] (3 sources) Penicillin G Drug Allergy 07-03-20 Unknown [facility] Medications Current Medications Medication Drug Class(es) Dates Sig (Normalized) Sig (Original) acetaminophen 500 mg oral tablet (13 sources) Start: 01-30-2018 Acetaminophen (Tylenol Extra Strength) 500 mg Tablet Active 500 MG PO As Directed January 30, 2018 12:00am Aloe Vera (13 sources) Start: 01-30-2018 Aloe Vera Active 1 [...] Active ascorbic acid 1000 mg oral tablet (20 sources) Vitamin C Start: 01-30-2018 Ascorbic Acid (Vitamin C) (Vitamin C) 1,000 mg Tablet Active 1 TAB PO As Directed January 30, 2018 12:00am take 2 tablets by mouth in the m orning Ascorbic Acid (vitamin C) 250 MG tablet Take 500 mg by mouth in the morning. Active Vitamin C 500 MG as directed Orally Once a day Active Vitamin C Active Beta Glucan 250 MG (3 sources) Beta Glucan 250 MG as directed Orally Active BETA GLUCAN PO (3 sources) BETA GLUCAN PO T inder by mouth. Active Calcium Carbonate-Mag Hydrox id (3 sources) Start: 01-30-2018 Calcium Carbon ate-Mag Hydroxid Active 1 TAB PO As Directed January 30, 2018 12:00am Start: 01-30-2018 Calcium Carbon ate-Mag Hydroxid Active 1 TAB PO As Directed January 29, 2018 11:00pm cholecalciferol 0.025 mg oral capsule (19 sources) Vitamin D Start: 01-30-2018 Cholecalcifero l [...] day Active cycloSPORINE 0.5 mg/ml ophthalmic suspension (11 sources) Calcineurin Inhibitor Immunosuppressant Start: 01-30-2018 Cyclosporine (Restasis) 0.05 % Dropperette Active 1 DROPS OPHTHALMIC As Directed January 30, 2018 8:49am Restasis Active Cyclosporine (Restasis) 0.05 % dropperette (5 sources) Start: 05-27-2024 take 1 drop(s) into the eye(s) every twelve hours Cyclosporine (Restasis) 0.05 % dropperette Active 1 DROPS EYE-BOTH Every 12 hours May 27, 2024 12:00am Digestive Enzymes (Enzyme Digest) Capsule (13 sources) Start: 01-30-2018 Digestive Enzy mes (Enzyme Digest) Capsule Active 1 CAP PO As Directed January 30, 2018 8:53am Start: 01-30-2018 take 1 capsule by mo [facility] once daily Digestive Enzymes (Enzyme Digest) Capsule Active 1 CAP PO Daily January 30, 2018 12:00am Start: 01-30-2018 take 1 capsule by mo ut once daily Digestive Enzymes (Enzyme Digest) Capsule Active 1 CAP PO Daily January 29, 2018 11:00pm Start: 01-30-2018 Digestive Enzy mes (Enzyme Digest) Capsule Active 1 CAP PO As Directed January 29, 2018 11:00pm Eye Promise Restore (11 sources) Start: 09-20-2022 take 1 tablet by gladis th once daily Eye Promise Restore Active 1 TAB PO Daily September 20, 2022 1:00am Start: 09-20-2022 take 1 tablet by mouth once da sarah Eye Promise Restore Active 1 TAB PO Daily September 20, 2022 12:00am Eye Vitamins (7 sources) Eye Vitamins Act jorge Ez Tears (11 sources) Start: 09-20-2022 take 1 tablet by gladis th once daily Ez Tears Active 1 TAB PO Daily September 20, 2022 1:00am Start: 09-20-2022 take 1 tablet by mouth once da sarah Ez Tears Active 1 TAB PO Daily September 20, 2022 12:00am Garlic preparation (20 sources) Non-Standardized Food Allergenic Extract Start: 01-30-2018 [...] As Directed January 29, 2018 11:00pm Garlic 2 MG caps ule Take by mouth. Active Garlic Active Grape Seed Ext-Bioflav,[place] (3 sources) Start: 01-30-2018 take 1 tablet by mouth once daily Grape Seed Ext-Bioflav,[place] Active 1 TAB PO Daily January 30, 2018 12:00am Grape Seed Extract (10 sources) GRAPE SEED EXTRA CT PO Take by mouth. Active take 2.5 tablets by mouth once d aily Grape Seed Extract 100 MG 2.5 tablets orally daily Active Grape Seed Extra ct Active Grape Seed Xt-Bioflav,[place] (10 sources) Start: 01-30-2018 Grape Seed Xt- Bioflav,[place] Active 1 TAB PO As Directed January 30, 2018 8:53am Start: 01-30-2018 take 1 tablet by gladis th once daily Grape Seed Xt-Bioflav,[place] Active 1 TAB PO Daily January 30, 2018 12:00am Start: 01-30-2018 take 1 tablet by gladis th once daily Grape Seed Xt-Bioflav,[place] Active 1 TAB PO Daily January 29, 2018 11:00pm Start: 01-30-2018 Grape Seed Xt- Bioflav,[place] Active 1 TAB PO As Directed January 29, 2018 11:00pm Lactobacillus Combination No .4 (Probiotic) 3 billion cell Capsule (13 sources) Start: 01-30-2018 Lactobacillus Combination No.4 (Probiotic) [...] 2018 12:00am September 20, 2022 1:12pm Melatonin 3 MG t ablet dispersible Take by mouth. Active Melatonin Active [place] Casey Extract (20 sources) Start: 01-30-2018 [place] Casey Ext ract Active 1 TAB PO As Directed January 30, 2018 8:53am Start: 01-30-2018 take 1 tablet by mouth once da sarah Shickshinny Casey Extract Active 1 TAB PO Daily January 30, 2018 12:00am Start: 01-30-2018 take 1 tablet by mouth once da sarah [place]hinny Casey Extract Active 1 TAB PO Daily January 29, 2018 11:00pm Start: 01-30-2018 [place]inny Casey Ext ract Active 1 TAB PO As Directed January 29, 2018 11:00pm Shickshinny Casey Extra ct 250 MG capsule Take by mouth. Active Shickshinny Casey Extra ct Active [place] 0-Ncf-Wmb-Fish Oil (Fi sh Oil) 1,000 mg (120 mg-180 mg) Capsule (13 sources) Start: 01-30-2018 [place] 3-Dha-Ep a-Fish Oil (Fish Oil) 1,000 mg (120 mg-180 mg) Capsule Active 1 TAB PO As Directed January 30, 2018 8:53am Start: 01-30-2018 End: 09-20-2022 [place] 4-Erq-Prt-Fish Oil (Fi sh Oil) 1,000 mg (120 mg-180 mg) Capsule Discontinued 1 TAB PO As Directed January 30, 2018 12:00am September 20, 2022 1:26pm Start: 01-30-2018 End: 09-20-2022 [place] 0-Tcp-Eab-Fish Oil (Fi sh Oil) 1,000 mg (120 mg-180 mg) Capsule Discontinued 1 TAB PO As Directed January 29, 2018 11:00pm September 20, 2022 12:26pm Start: 01-30-2018 [place] 3-Dha-Ep a-Fish Oil (Fish Oil) 1,000 mg (120 mg-180 mg) Capsule Active 1 TAB PO As Directed January 29, 2018 11:00pm pantoprazole 40 mg delayed release oral tablet (4 sources) Proton Pump Inhibitor Start: 03-21-2021 take 1 tablet by mouth every twenty-four hours Pantoprazole Sodium 40 MG 1 tablet Orally Once a day for 30 day(s) Mar, Active Probiotic (7 sources) Probiotic Active Probiotic Product (PROBIOTIC BLEND PO) (3 sources) Probiotic Produc t (PROBIOTIC BLEND PO) Take by mouth. Active triamcinolone acetonide 0.001 mg/mg topical ointment (5 sources) Corticosteroid Triamcinolone Acetonide 0.1 % APPLY TO AFFECTED AREAS ON LEG AND ABDOMEN TWICE A DAY UP TO 2 WEEKS , THEN NEEDED FOR FLARES External for 30 Days Active Vitamin D3 (4 sources) Vitamin D3 Activ e Completed/Discontinued Medications Medication Drug Class(es) Dates Sig (Normalized) Sig (Original) Aloe Vera (13 sources) Start: 01-30-2018 End: 01-30-2018 Aloe Vera [...] Active calcium carbonate 500 mg chewable tablet (13 sources) Start: 01-30-2018 End: 12-06-2022 take 1 tablet by mouth three times daily Calcium Carbonate (Tums) 200 mg calcium (500 mg) Tablet,Chewable Discontinued 200 MG PO Three times daily January 30, 2018 12:00am December 06, 2022 12:56pm calcium carbonate 1000 mg / magnesium hydroxide 200 mg chewable tablet (10 sources) Start: 01-30-2018 End: 05-27-2024 Calcium Carbonate-Mag Hydroxid Discontinued 1 TAB PO As Directed January 30, 2018 12:00am May 27, 2024 11:29am choline 650 mg oral tablet (13 sources) Start: 01-30-2018 End: 01-30-2018 Choline Dihydrogen Citrate Discontinued TABLET January 30, 2018 12:00am January 30, 2018 8:52am Cyclosporine (Restasis) 0.05 % Dropperette (11 sources) Start: 01-30-2018 End: 05-27-2024 take 1 [...] 27, 2024 11:34am May 27, 2024 11:38am take 1 capsule by mo uth before mealtime omeprazole (PriLOSEC) [address] capsule Take 10 mg by mouth in the morning. Take before meals. Do not crush or chew. . Active polyethylene glycol 400 4 mg/ml / propylene glycol 3 mg/ml ophthalmic solution (11 sources) Start: 09-20-2022 End: 06-09-2024 Peg 400-Propylene [...] Jan, Not-Taking/PRN raNITIdine 150 mg oral tablet (13 sources) Histamine-2 Receptor Antagonist Start: 01-30-2018 End: 09-20-2022 Ranitidine Hcl (Zantac) 150 mg Tablet Discontinued 2 TAB PO As Directed January 30, 2018 12:00am September 20, 2022 1:26pm tiZANidine 4 mg oral capsule (11 sources) Central alpha-2 Adrenergic Agonist Start: 09-20-2022 End: 05-27-2024 take 4 mg by mouth once daily at bedtime Tizanidine Discontinued 4 MG PO Daily at bedtime September 20, 2022 1:00am May 27, 2024 11:29am traMADol hydrochloride 50 mg oral tablet (17 sources) Opioid Agonist Start: 01-30-2018 End: 09-20-2022 Tramadol Discontinued 50 MG PO As Directed January 30, 2018 12:00am September 20, 2022 1:15pm Zinc (18 sources) Start: 09-20-2022 End: 05-27-2024 take 50 [...] Problem Classification Problem Date Documented Date Episodic/Chronic Abdominal pain (4 sources) Right flank pain; Translations: [Unspecified abdominal pain] 07-02-2024 Episodic Acute bronchitis (2 sources) Acute bronchitis; Translations: [...] unspecified] Episodic Other aftercare (1 source) 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; Translations: [[facility] CURRENT DRUG THERAPY] Onset: 3 Episodic Other and unspecified benign neoplasm (1 source) Hemangioma of other sites; Translations: [HEMANGIOMA OF OTHER SITES] Onset: 8 Episodic Other circulatory disease (1 source) Raynaud's syndrome without gangrene; Translations: [RAYNAUD'S SYNDROME WITHOUT GANGRENE] Onset: 8 Chronic Other circulatory disease (3 sources) Raynaud's disease; Translations: [Raynaud's syndrome without gangrene] Onset: 0 07-10-2024 Chronic Other connective tissue disease (1 source) Fibromyalgia; Translations: [Fibromyalgia] Episodic Other diseases of veins and lymphatics (4 sources) Peripheral venous insufficiency; Translations: [Venous insufficiency (chronic) (peripheral)] Episodic Other diseases of veins and lymphatics (4 sources) Venous insufficiency (chronic) (peripheral); Translations: [Venous (peripheral) insufficiency, unspecified] Episodic Other diseases of veins and lymphatics (6 sources) Venous insufficiency of leg; Translations: [Venous insufficiency (chronic) (peripheral)] Onset: 4 06-29-2024 Episodic Other gastrointestinal disorders (20 sources) Dysphagia; Translations: [Dysphagia, unspecified] Onset: 4 01-30-2018 Episodic Other gastrointestinal disorders (11 sources) Dysphagia, unspecified; Translations: [Dysphagia, unspecified] Onset: [...] Neuropathy; Translations: [Idiopathic progressive neuropathy] Chronic Other nervous system disorders (3 sources) Right tarsal tunnel syndrome; Translations: [Tarsal tunnel syndrome, right lower limb] Onset: 4 07-10-2024 Chronic Other non-traumatic joint disorders (1 source) [...] conditions (not mental disorders or infectious disease) (18 sources) Patient encounter status; Translations: [Encounter for screening for malignant neoplasm of colon] 03-17-2021 Episodic Other upper respiratory disease (2 sources) Senile voice; Translations: [Other diseases of larynx] 07-15-2024 Episodic Other upper respiratory disease (4 sources) Hoarse; Translations: [Dysphonia] 07-15-2024 Episodic Other upper respiratory infections (1 source) Acute pharyngitis; Translations: [Acute pharyngitis, unspecified] Episodic Peripheral and visceral atherosclerosis (10 sources) Atherosclerosis of [place] arteries of extremities with intermittent claudication, bilateral legs; Translations: [Atherosclerosis of [place] arteries of the extremities] Onset: 2 Chronic [...] Spondylosis; intervertebral disc disorders; other back problems (10 sources) Spondylosis without myelopathy or radiculopathy, lumbar region; Translations: [Other intervertebral disc displacement, lumbar region] Onset: 8 Chronic Spondylosis; intervertebral disc disorders; other back problems (4 sources) Low back pain; Translations: [Low back pain] Onset: 8 Episodic Superficial injury; contusion (1 source) Contusion of right elbow, initial encounter Episodic Systemic lupus erythematosus and connective tissue disorders (20 sources) Systemic sclerosis, unspecified; 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: 0 Chronic Varicose veins of lower extremity (19 sources) Varicose ulcer of lower extremity; Translations: [Varicose veins of left lower extremity with ulcer of unspecified site] Onset: 4 Episodic Past or Other Problems Problem Classification Problem Date Documented Da te Episodic/Chronic Esophageal disorders (3 sources) Esophageal disorders; Translations: [Gastro-esophageal reflux disease with esophagitis, without bleeding] Other connective tissue disease (3 sources) Fibromyositis; Translations: [Fibromyalgia] Onset: 06-07-2010 07-10-2024 Episodic Other connective tissue disease (3 sources) Pain in limb; Translations: [Pain in unspecified limb] Onset: 01-23-2012 Resolved: 07-10-2024 07-10-2024 Episodic Other lower respiratory disease (1 source) Shortness of breath; Translations: [SHORTNESS OF BREATH] Onset: 09-23-2022 Episodic Other lower respiratory disease (1 source) Dyspnea, unspecified; Translations: [DYSPNEA UNSPECIFIED] Onset: 09-23-2022 Episodic Other lower respiratory disease (1 source) Cough; Translations: [Cough, unspecified] Onset: 01-05-2014 Episodic Other lower respiratory disease (3 sources) Dyspnea; Translations: [Dyspnea, unspecified] Onset: 07-23-2012 07-10-2024 Episodic Otitis media and related conditions (1 source) Acute suppurative otitis media without spontaneous rupture of ear drum; Translations: [Acute suppurative otitis media without spontaneous rupture of eardrum] Onset: 10-12-2016 Episodic Unclassified (2 sources) Unknown / UNK(Unknown) Onset: 07-31-2018 Results Test Name Value Interpretation Reference Range Facility Glucose mean value [Mass/vol ume] in Blood Estimated from glycated hemoglobinon 07-11-2024 Average glucose Estimated from glycated hemoglobin (Bld) [Mass/Vol] 111 mg/dL [facility] - Chemistry and C hemistry - challengeon 07-11-2024 TSH Qn 2.496 m[IU]/L 0.358-3.740 [facility] - Hematology and Cell countson 07-11-2024 HbA1c (Bld) [Mass fraction] 5.5 % 4.5-6.2 [facility] Comment on above: ADA RECOMMENDED LIMI T 4.0 - 6.0ADA THERAPEUTIC TARGET < 7.0ACTION SUGGESTED> 7.0 No Panel Informationon 07-11 25-Hydroxy Vitamin D Total 74.0 ng/mL [facility] Comment on above: <20 ng/mL Vit D defi cient20-<30 ng/mL Vit D [id number] ng/mL Vit D sufficient>100 ng/mL Potential Toxicity Basophils Auto (Bld) [#/Vol] on 06-17-2024 Basophils (Bld) [#/Vol] 0.0 10 3/uL 0.0-0.1 [facility] Basophils/100 WBC Auto (Bld) on 06-17-2024 Basophils/100 WBC (Bld) 0.6 % 0.2-2.0 [facility] Eosinophils/100 WBC Auto (Bl d)on 06-17-2024 Eosinophils/100 WBC (Bld) 1.7 % 0.9-7.0 [facility] Erythrocyte distribution wid th Auto (RBC) [Ratio]on 06-17-2024 Erythrocyte distribution width (RBC) [Ratio] 13.8 % 11.0-15.0 [facility] Estimated glomerular filtrat ion rate (GFR) non- Americanon 06-17-2024 GFR/1.73 sq M.predicted among non-blacks MDRD (S/P/Bld) [Vol rate/Area] 60 mL/min/{1.73_m2} >=60 [facility] Globulin Calc (S) [Mass/Vol] on 06-17-2024 Globulin (S) [Mass/Vol] 3.1 g/dL [facility] Hematocrit Auto (Bld) [Volum e fraction]on 06-17-2024 Hematocrit (Bld) [Volume fraction] 39.9 % 36.0-48.0 [facility] Hemoglobin [Mass/volume] in Bloodon 06-17-2024 Hemoglobin (Bld) [Mass/Vol] 13.3 g/dL 12.0-16.0 [facility] - Chemistry and C hemistry - challengeon 06-17-2024 Albumin [Mass/Vol] 3.3 g/dL Low 3.4-5.0 [facility] ALP [Catalytic activity/Vol] 73 U/L 46-116 [facility] ALT [Catalytic activity/Vol] 24 U/L 14-59 [facility] AST [Catalytic activity/Vol] 19 U/L 15-37 [facility] Bilirubin [Mass/Vol] 0.4 mg/dL 0.2-1.0 [facility] Calcium [Mass/Vol] 9.2 mg/dL 8.5-10.1 [facility] Chloride [Moles/Vol] 107 mmol/L 98-107 [facility] CO2 [Moles/Vol] 28.8 mmol/L 21.0-32.0 [facility] Creatinine [Mass/Vol] 0.93 mg/dL 0.55-1.02 [facility] GFR/1.73 sq M.predicted MDRD (S/P/Bld) [Vol rate/Area] mL/min/{1.73_m2} >=60 [facility] Glucose [Mass/Vol] 97 mg/dL 74-106 [facility] Potassium [Moles/Vol] 3.9 mmol/L 3.5-5.1 [facility] Protein [Mass/Vol] 6.4 g/dL 6.4-8.2 [facility] Sodium [Moles/Vol] 144 mmol/L 136-145 [facility] Urea nitrogen [Mass/Vol] 22.0 mg/dL High 7.0-18.0 [facility] Urea nitrogen/Creatinine [Mass ratio] 23.7 mg/mg [facility] Bilirubin Ql (U) Negative NEGATIVE [facility] Glucose (U) [Mass/Vol] Negative NEGATIVE [facility] Ketones Ql (U) Negative NEGATIVE [facility] pH (U) 5.5 [pH] 5.0-9.0 [facility] Specific gravity (U) [Rel density] <=1.005 Abnormal 1.005-1.025 [facility] Urobilinogen Qn (U) 0.2 {Lora'U}/dL 0.2-1.0 [facility] - Hematology and Cell countson 06-17-2024 ESR (Bld) [Velocity] 27 mm/h <=30 [facility] Immature granulocytes/100 WBC (Bld) 0.1 % 0.0-0.5 [facility] - Specimen inform ationon 06-17-2024 Appearance (U) CLEAR CLEAR [facility] Color (U) LT. YELLOW YELLOW [facility] - Urinalysison Leukocyte esterase Test strip Ql (U) SMALL Abnormal NEGATIVE [facility] Mucus Ql (Urine sed) NONE SEEN NONE SEEN [facility] Nitrite Ql (U) Negative NEGATIVE [facility] Protein Ql (U) Negative NEG/TRACE [facility] Leukocytes [#/volume] correc pan for nucleated erythrocytes in Blood by Automated counon 06-17-2024 WBC corrected for nucl RBC Auto (Bld) [#/Vol] 7.0 10 3/uL 4.0-11.0 [facility] Lymphocytes Auto (Bld) [#/Vo l]on 06-17-2024 Lymphocytes (Bld) [#/Vol] 2.7 10 3/uL 1.2-3.8 [facility] Lymphocytes/100 WBC Auto (Bl d)on 06-17-2024 Lymphocytes/100 WBC (Bld) 38.7 % 20.5-60.0 [facility] MCH Auto (RBC) [Entitic mass ]on 06-17-2024 MCH (RBC) [Entitic mass] 30.2 pg 26.7-34.0 [facility] MCHC Auto (RBC) [Mass/Vol]on 06-17-2024 MCHC (RBC) [Mass/Vol] 33.3 g/dL 29.9-35.2 [facility] MCV Auto (RBC) [Entitic vol] on 06-17-2024 MCV (RBC) [Entitic vol] 90.5 fL 81.0-99.0 [facility] Monocytes Auto (Bld) [#/Vol] on 06-17-2024 Monocytes (Bld) [#/Vol] 0.5 10 3/uL 0.3-0.8 [facility] Monocytes/100 WBC Auto (Bld) on 06-17-2024 Monocytes/100 WBC (Bld) 7.2 % 1.7-12.0 [facility] Neutrophils Auto (Bld) [#/Vo l]on 06-17-2024 Neutrophils (Bld) [#/Vol] 3.6 10 3/uL 1.4-6.5 [facility] Neutrophils/100 WBC Auto (Bl d)on 06-17-2024 Neutrophils/100 WBC (Bld) 51.7 % 43.0-75.0 [facility] No Panel Informationon 06-17 Eosinophils # (Auto) 0.1 10 3/uL 0.0-0.7 [facility] Immature Granulocyte # (Auto) 0.01 10 3/uL 0.00-0.03 [facility] Total Complement (CH50) 55 U/mL >41 [facility] Comment on above: Age Male Female 1 [...] to determine out of range values.Performed at: [facility] [id number] Director: Savage Vaughan PhD, Phone: [phone] Urine Bacteria TRACE #/HPF Abnormal NONE SEEN [facility] Urine Occult Blood TRACE-I NEGATIVE [facility] Urine RBC 0-2 #/HPF 0-2 [facility] Urine Squamous Epithelial Cells FEW #/LPF Abnormal NONE/RARE [facility] Urine WBC 2-5 #/HPF Abnormal NONE SEEN [facility] Platelet mean volume Auto (B ld) [Entitic vol]on 06-17-2024 Platelet mean volume (Bld) [Entitic vol] 8.8 fL Low 9.5-13.5 [facility] Platelets Auto (Bld) [#/Vol] on 06-17-2024 Platelets (Bld) [#/Vol] 177 10 3/uL 150-450 [facility] RBC Auto (Bld) [#/Vol]on RBC (Bld) [#/Vol] 4.41 10 6/uL 4.20-5.40 [facility] Serum or plasma albumin/glob ulin mass ratioon 06-17-2024 Albumin/Globulin [Mass ratio] 1.1 {ratio} [facility] Serum or plasma anion gap de terminationon 06-17-2024 Anion gap [Moles/Vol] 12.1 mmol/L [facility] Serum or plasma complement C 3 measurement (mass/volume)on 06-17-2024 Complement C3 [Mass/Vol] 125 mg/dL 82-167 [facility] Serum or plasma complement C 4 measurement (mass/volume)on 06-17-2024 Complement C4 [Mass/Vol] 20 mg/dL 12-38 [facility] Comment on above: Performed at: [address] Director: Savage Vaughan PhD, Phone: [phone] US venous duplex LE BIon US venous duplex LE [facility] [place] [address] Ultrasound Report Signed Patient: Bashir Coats MR#: [id number] : 1955 Acct:[id number] Age/Sex: 68 / F ADM Date: 01/14/24 Loc: Room: Type: [facility] Attending Dr: Angelic Slaughter MD [...] Bucky Reynaga M.D.01/15/2024 12:26 PM Dictation Location: [id number] Tech: Lizeth Dixon Transcribed By: COLTON 01/15/24 1226 Dictated By: Bucky Reynaga MD 01/15/24 1224 Signed By: 01/15/24 1226 Normal [facility] Automated epithelial cells c ount in urine sediment (number/area)on 12-25-2023 Epithelial cells Auto (Urine sed) [#/Area] FEW #/LPF NONE/RARE [facility] Automated leukocytes count i n urine sediment (number/area)on 12-25-2023 WBC Auto (Urine sed) [#/Area] 5-10 #/HPF 0-2 [facility] Automated urine specific gra vity by refractometryon 12-25-2023 Specific gravity Refractometry automated (U) [Rel density] 1.010 1.005-1.025 [facility] Basophils Auto (Bld) [#/Vol] on 12-25-2023 Basophils (Bld) [#/Vol] 0.1 10 3/uL 0.0-0.1 [facility] Basophils/100 WBC Auto (Bld) on 12-25-2023 Basophils/100 WBC (Bld) 0.8 % 0.2-2.0 [facility] Bilirubin Auto test strip (U ) [Mass/Vol]on 12-25-2023 Bilirubin (U) [Mass/Vol] Negative NEGATIVE [facility] Casts typing in urine sedime nt by light microscopyon 12-25-2023 Casts LM Nom (Urine sed) NONE SEEN #/LPF NONE SEEN [facility] Color Auto (U)on 12-25-2023 Color (U) LT. YELLOW YELLOW [facility] Eosinophils/100 WBC Auto (Bl d)on 12-25-2023 Eosinophils/100 WBC (Bld) 1.4 % 0.9-7.0 [facility] Erythrocyte distribution wid th Auto (RBC) [Ratio]on 12-25-2023 Erythrocyte distribution width (RBC) [Ratio] 13.8 % 11.0-15.0 [facility] Estimated glomerular filtrat ion rate (GFR) non- Americanon 12-25-2023 GFR/1.73 sq M.predicted among non-blacks MDRD (S/P/Bld) [Vol rate/Area] mL/min/{1.73_m2} >=60 [facility] Globulin Calc (S) [Mass/Vol] on 12-25-2023 Globulin (S) [Mass/Vol] 3.5 g/dL [facility] Hematocrit Auto (Bld) [Volum e fraction]on 12-25-2023 Hematocrit (Bld) [Volume fraction] 39.7 % 36.0-48.0 [facility] Hemoglobin [Mass/volume] in Bloodon 12-25-2023 Hemoglobin (Bld) [Mass/Vol] 12.6 g/dL 12.0-16.0 [facility] Ketones Auto test strip (U) [Mass/Vol]on 12-25-2023 Ketones (U) [Mass/Vol] Negative NEGATIVE [facility] Laboratory - Chemistry and C hemistry - challengeon 12-25-2023 Albumin [Mass/Vol] 3.3 g/dL 3.4-5.0 [facility] ALP [Catalytic activity/Vol] 74 U/L 46-116 [facility] ALT [Catalytic activity/Vol] 27 U/L 14-59 [facility] AST [Catalytic activity/Vol] 17 U/L 15-37 [facility] Bilirubin [Mass/Vol] 0.3 mg/dL 0.2-1.0 [facility] Calcium [Mass/Vol] 9.0 mg/dL 8.5-10.1 [facility] Chloride [Moles/Vol] 104 mmol/L 98-107 [facility] CO2 [Moles/Vol] 29.7 mmol/L 21.0-32.0 [facility] Creatinine [Mass/Vol] 0.91 mg/dL 0.55-1.02 [facility] GFR/1.73 sq M.predicted MDRD (S/P/Bld) [Vol rate/Area] mL/min/{1.73_m2} >=60 [facility] Glucose [Mass/Vol] 94 mg/dL 74-106 [facility] Potassium [Moles/Vol] 3.7 mmol/L 3.5-5.1 [facility] Protein [Mass/Vol] 6.8 g/dL 6.4-8.2 [facility] Sodium [Moles/Vol] 143 mmol/L 136-145 [facility] Urea nitrogen [Mass/Vol] 18.0 mg/dL 7.0-18.0 [facility] Urea nitrogen/Creatinine [Mass ratio] 19.8 mg/mg [facility] Laboratory - Hematology and Cell countson 12-25-2023 ESR (Bld) [Velocity] 29 mm/h <=30 [facility] Immature granulocytes/100 WBC (Bld) 0.3 % 0.0-0.5 [facility] Leukocytes [#/volume] correc pan for nucleated erythrocytes in Blood by Automated counon 12-25-2023 WBC corrected for nucl RBC Auto (Bld) [#/Vol] 8.0 10 3/uL 4.0-11.0 [facility] Lymphocytes Auto (Bld) [#/Vo l]on 12-25-2023 Lymphocytes (Bld) [#/Vol] 2.6 10 3/uL 1.2-3.8 [facility] Lymphocytes/100 WBC Auto (Bl d)on 12-25-2023 Lymphocytes/100 WBC (Bld) 32.4 % 20.5-60.0 [facility] MCH Auto (RBC) [Entitic mass ]on 12-25-2023 MCH (RBC) [Entitic mass] 29.3 pg 26.7-34.0 [facility] MCHC Auto (RBC) [Mass/Vol]on 12-25-2023 MCHC (RBC) [Mass/Vol] 31.7 g/dL 29.9-35.2 [facility] MCV Auto (RBC) [Entitic vol] on 12-25-2023 MCV (RBC) [Entitic vol] 92.3 fL 81.0-99.0 [facility] Monocytes Auto (Bld) [#/Vol] on 12-25-2023 Monocytes (Bld) [#/Vol] 0.6 10 3/uL 0.3-0.8 [facility] Monocytes/100 WBC Auto (Bld) on 12-25-2023 Monocytes/100 WBC (Bld) 7.0 % 1.7-12.0 [facility] Mucus LM Ql (Urine sed)on Mucus Ql (Urine sed) TRACE NONE SEEN [facility] Neutrophils Auto (Bld) [#/Vo l]on 12-25-2023 Neutrophils (Bld) [#/Vol] 4.6 10 3/uL 1.4-6.5 [facility] Neutrophils/100 WBC Auto (Bl d)on 12-25-2023 Neutrophils/100 WBC (Bld) 58.1 % 43.0-75.0 [facility] No Panel Informationon 12-24 Eosinophils # (Auto) 0.1 10 3/uL 0.0-0.7 [facility] Immature Granulocyte # (Auto) 0.02 10 3/uL 0.00-0.03 [facility] Total Complement (CH50) 57 U/mL >41 [facility] Comment on above: Age Male Female 1 [...] to determine out of range values.Performed at: [facility] [employer] [address] [id number] Director: Savage Vaughan PhD, Phone: [phone] Platelet mean volume Auto (B ld) [Entitic vol]on 12-25-2023 Platelet mean volume (Bld) [Entitic vol] 8.9 fL 9.5-13.5 [facility] Platelets Auto (Bld) [#/Vol] on 12-25-2023 Platelets (Bld) [#/Vol] 201 10 3/uL 150-450 [facility] Protein Auto test strip (U) [Mass/Vol]on 12-25-2023 Protein (U) [Mass/Vol] Negative NEG/TRACE [facility] RBC Auto (Bld) [#/Vol]on RBC (Bld) [#/Vol] 4.30 10 6/uL 4.20-5.40 [facility] Serum or plasma albumin/glob ulin mass ratioon 12-25-2023 Albumin/Globulin [Mass ratio] 0.9 {ratio} [facility] Serum or plasma anion gap de terminationon 12-25-2023 Anion gap [Moles/Vol] 13.0 mmol/L [facility] Serum or plasma complement C 3 measurement (mass/volume)on 12-25-2023 Complement C3 [Mass/Vol] 121 mg/dL 82-167 [facility] Serum or plasma complement C 4 measurement (mass/volume)on 12-25-2023 Complement C4 [Mass/Vol] 20 mg/dL [facility] Comment on above: Performed at: [address] [id number] Director: Savage Vaughan PhD, Phone: [phone] Specific gravity Auto test s trip (U) [Rel density]on 12-25-2023 Specific gravity (U) [Rel density] CLEAR CLEAR [facility] Urine bacteria detection by automated methodon 12-25-2023 Bacteria Auto Ql (U) TRACE #/HPF NONE SEEN [facility] Urine glucose measurement by test strip (mass/volume)on 12-25-2023 Glucose Test strip (U) [Mass/Vol] Negative NEGATIVE [facility] Urine hemoglobin detection b y automated test stripon 12-25-2023 Hemoglobin Auto test strip Ql (U) MODERATE NEGATIVE [facility] Urine nitrite detection by a utomated test stripon 12-25-2023 Nitrite Auto test strip Ql (U) SMALL NEGATIVE [facility] Nitrite Auto test strip Ql (U) Negative NEGATIVE [facility] Urine sediment crystal ident ification by light microscopyon 12-25-2023 Crystals LM Nom (Urine sed) None Seen #/HPF None Seen [facility] Urine sediment leukocyte cou nt by microscopy (number/high power field)on 12-25-2023 WBC LM.HPF (Urine sed) [#/Area] 5-10 #/HPF NONE SEEN [facility] Urobilinogen Auto test strip (U) [Mass/Vol]on 12-25-2023 Urobilinogen Qn (U) 0.2 {Lora'U}/dL 0.2-1.0 [facility] pH Auto test strip (U)on pH (U) 5.5 [pH] 5.0-9.0 [facility] XR ankle LT min 3V*on 2022 XR ankle LT min 3V* [facility] [employer] Other XR ankle LT min 3V* [facility] [employer] Other XR ankle LT min 3V* [address] [facility] [email or web address] Other XR ankle LT min 3V* FABIAN Clifton [address] [email or web address] Other XR ankle LT min 3V* XRay Report [employer] Other XR ankle LT min 3V* Signed [email or web address] Other XR ankle LT min 3V* Patient: Bashir Coats MR#: [id number] [email or web address] Other XR ankle LT min 3V* : 1955 Acct:[id number] [email or web address] Other XR ankle LT min 3V* Age/Sex: 68 / F ADM Date: 06/07/23 [email or web address] Other XR ankle LT min 3V* Loc: XDUCLY Room: Type: REG CLI [email or web address] Other XR ankle LT min 3V* Attending Dr: Chiara KINGSTON [email or web address] Other XR ankle LT min 3V* Copies to: VASHTI Carter [email or web address] Other XR ankle LT min 3V* Ordering Provider: VASHTI Carter [email or web address] Other XR ankle LT min 3V* Date of Service: 06/07/23 [email or web address] Other XR ankle LT min 3V* XR/XR ankle LT min 3V*: LEFT ANKLE PAIN [email or web address] Other XR ankle LT min 3V* LEFT ANKLE - 3 views [email or web address] Other XR ankle LT min 3V* CLINICAL HISTORY: Left medial ankle pain with swelling and tingling and burning for one month. No [email or web address] Other XR ankle LT min 3V* known trauma. No rt [employer] Other XR ankle LT min 3V* COMPARISON: None [email or web address] Other XR ankle LT min 3V* FINDINGS: [email or web address] Other XR ankle LT min 3V* Soft tissue swelling is noted. Ankle mortise appears intact with mild degenerative change. No acute [email or web address] Other XR ankle LT min 3V* bony process. Planta r spurring. [email or web address] Other XR ankle LT min 3V* XR/XR ankle LT min 3V* [email or web address] Other XR ankle LT min 3V* IMPRESSION: [employer] Other XR ankle LT min 3V* SOFT TISSUE SWELLING WITHOUT ACUTE BONY PROCESS. DEGENERATIVE CHANGE. [email or web address] Other XR ankle LT min 3V* Impression dictated by: Tanner Jarquin Jr., D.O.06/07/2023 1:28 PM [email or web address] Other XR ankle LT min 3V* Dictation Location: [place] [id number] [email or web address] Other XR ankle LT min 3V* Transcribed By: PWS 06/07/23 1328 [email or web address] Other XR ankle LT min 3V* Dictated By: Tanner Jarquin Jr, DO 06/07/23 1327 [email or web address] Other XR ankle LT min 3V* Signed By: [email or web address] Other XR ankle LT min 3V* 06/07/23 1328 No rt [employer] Other C3 and C4 COMPLEMENTon 02-10 Complement C3, Serum 141 mg/dL Normal 82-167 [facility] Comment on above: Performed By: #### C SUITE #### [facility] [address] [address] [address] Eboni Smith Complement C4, Serum 24 mg/dL Normal 12-38 [facility] Comment on above: Performed By: #### C SUITE #### [facility] [address] [place] [address] Dr. Eboni Smith COMPLEMENT TOTAL (CH50)on Complement, Total (CH50) >60 Normal >41 [facility] Comment on above: Result Comment: Age [...] values. Performed By: #### C H50T #### [facility] [address] [place] [address] Dr. Eboni Smith CBC AUTO DIFFon 02-08-2023 BASO # 0.0 103/ul Normal 0.0-0.1 [facility] Comment on above: Performed By: #### C BC #### [facility] [address] [place] [address] Dr. Eboni Smith Basophils/100 WBC (Bld) 0.4 % Normal 0.2-2.0 [facility] Comment on above: Performed By: #### C BC #### [facility] [address] [place] [address] Dr. Eboni Smith EO # 0.2 103/ul Normal 0.0-0.7 [facility] Comment on above: Performed By: #### C BC #### [facility] [address] [place] [address] Dr. Eboni Smith Eosinophils/100 WBC (Bld) 1.6 % Normal 0.9-7.0 [facility] Comment on above: Performed By: #### C BC #### [facility] [address] [place] [address] Dr. Eboni Smith Erythrocyte distribution width (RBC) [Ratio] 14.6 % Normal 11.0-15.0 [facility] Comment on above: Performed By: #### C BC #### [facility] [address] [address] [address] Eboni Smith Hematocrit (Bld) [Volume fraction] 40.2 % Normal 36.0-48.0 [facility] Comment on above: Performed By: #### C BC #### [facility] [address] [address] [address] Eboni Smith Hemoglobin (Bld) [Mass/Vol] 12.7 g/dL Normal 12.0-16.0 [facility] Comment on above: Performed By: #### C BC #### [facility] [address] [place] [address] Dr. Eboni Smith IG # 0.06 10e3/ul Critically high 0.00-0.03 [facility] Comment on above: Performed By: #### C BC #### [facility] [address] [place] [address] Dr. Eboni Smith IG % 0.6 % Critically high 0.0-0.5 [facility] Comment on above: Performed By: #### C BC #### [facility] [address] [place] [address] Dr. Eboni Smith LYMPH # 3.4 103/ul Normal 1.2-3.8 [facility] Comment on above: Performed By: #### C BC #### [facility] [address] [place] [address] Dr. Eboni Smith Lymphocytes/100 WBC (Bld) 36.6 % Normal 20.5-60.0 [facility] Comment on above: Performed By: #### C BC #### [facility] [address] [place] [address] Dr. Eboni Smith MANUAL DIFF REQ NO Normal [facility] Comment on above: Performed By: #### C BC #### [facility] [address] [place] [address] Dr. Eboni Smith MCH (RBC) [Entitic mass] 28.6 pg Normal 26.7-34.0 [facility] Comment on above: Performed By: #### C BC #### [facility] [address] [address] [address] Eboni Smith MCHC (RBC) [Mass/Vol] 31.6 g/dL Normal 29.9-35.2 [facility] Comment on above: Performed By: #### C BC #### [facility] [address] [address] [address] Eboni Smith MCV (RBC) [Entitic vol] 90.5 fL Normal 81.0-99.0 [facility] Comment on above: Performed By: #### C BC #### [facility] [address] [place] [address] Dr. Eboni Smith MONO # 0.8 103/ul Normal 0.3-0.8 [facility] Comment on above: Performed By: #### C BC #### [facility] [address] [place] [address] Dr. Eboni Smith Monocytes/100 WBC (Bld) 8.2 % Normal 1.7-12.0 [facility] Comment on above: Performed By: #### C BC #### [facility] [address] [place] [address] Dr. Eboni Smith NEUT # 4.9 103/ul Normal 1.4-6.5 [facility] Comment on above: Performed By: #### C BC #### [facility] [address] [place] [address] Dr. Eboni Smith Neutrophils/100 WBC (Bld) 52.6 % Normal 43.0-75.0 [facility] Comment on above: Performed By: #### C BC #### [facility] [address] [place] [address] Dr. Eboni Smith Platelet mean volume (Bld) [Entitic vol] 8.5 fL Critically low 9.5-13.5 [facility] Comment on above: Performed By: #### C BC #### [facility] [address] [place] [address] Dr. Eboni Smith PLT 272 103/ul Normal 150-450 [facility] Comment on above: Performed By: #### C BC #### [facility] [address] [place] [address] Dr. Eboni Smith RBC 4.44 106/ul Normal 4.20-5.40 [facility] Comment on above: Performed By: #### C BC #### [facility] [address] [place] [address] Dr. Eboni Smith WBC 9.4 103/ul Normal 4.0-11.0 [facility] Comment on above: Performed By: #### C BC #### [facility] [address] [place] [address] Dr. Eboni Smith PROF 14(COMP METB)on 023 Albumin [Mass/Vol] 3.2 g/dL Critically low 3.4-5.0 [facility] Comment on above: Performed By: #### C MP #### [facility] [address] [place] [address] Dr. Eboni Smith Albumin/Globulin [Mass ratio] 0.9 {ratio} Normal [facility] Comment on above: Performed By: #### C MP #### [facility] [address] [place] [address] Dr. Eboni Smith ALP [Catalytic activity/Vol] 85 U/L Normal 46-116 [facility] Comment on above: Performed By: #### C MP #### [facility] [address] [place] [address] Dr. Eboni Smith ALT [Catalytic activity/Vol] 22 U/L Normal 14-59 [facility] Comment on above: Performed By: #### C MP #### [facility] [address] [place] [address] Dr. Eboni Smith Anion gap [Moles/Vol] 10.8 mmol/L Normal [facility] Comment on above: Performed By: #### C MP #### [facility] [address] [place] [address] Dr. Eboni Smith AST [Catalytic activity/Vol] 16 U/L Normal 15-37 [facility] Comment on above: Performed By: #### C MP #### [facility] [address] [place] [address] Dr. Eboni Smith Bilirubin [Mass/Vol] 0.2 mg/dL Normal 0.2-1.0 [facility] Comment on above: Performed By: #### C MP #### [facility] [address] [address] [address] Eboni Smith Calcium [Mass/Vol] 8.9 mg/dL Normal 8.5-10.1 [facility] Comment on above: Performed By: #### C MP #### [facility] [address] [address] [address] Eboni Smith Chloride [Moles/Vol] 106 mmol/L Normal 98-107 [facility] Comment on above: Performed By: #### C MP #### [facility] [address] [address] [address] Eboni Smith CO2 [Moles/Vol] 28.2 mmol/L Normal 21.0-32.0 [facility] Comment on above: Performed By: #### C MP #### [facility] [address] [address] [address] Eboni Smith Creatinine [Mass/Vol] 0.87 mg/dL Normal 0.55-1.02 [facility] Comment on above: Performed By: #### C MP #### [facility] [address] [address] [address] Eboni Smith EGFR-AF SINGAPOREAN >60 Normal >=60 [facility] Comment on above: Performed By: #### C MP #### [facility] [address] [address] [address] Eboni Smith EGFR-NON AF SINGAPOREAN >60 Normal >=60 [facility] Comment on above: Performed By: #### C MP #### [facility] [address] [address] [address] Eboni Smith Globulin (S) [Mass/Vol] 3.5 g/dL Normal [facility] Comment on above: Performed By: #### C MP #### [facility] [address] [address] [address] Eboni Smith Glucose [Mass/Vol] 93 mg/dL Normal 74-106 [facility] Comment on above: Performed By: #### C MP #### [facility] [address] [address] [address] Eboni Smith Potassium [Moles/Vol] 4.0 mmol/L Normal 3.5-5.1 [facility] Comment on above: Performed By: #### C MP #### [facility] [address] [address] [address] Eboni Smith Protein [Mass/Vol] 6.7 g/dL Normal 6.4-8.2 [facility] Comment on above: Performed By: #### C MP #### [facility] [address] [address] [address] Eboni Smith Sodium [Moles/Vol] 141 mmol/L Normal 136-145 [facility] Comment on above: Performed By: #### C MP #### [facility] [address] [address] [address] Eboni Smith Urea nitrogen [Mass/Vol] 18.0 mg/dL Normal 7.0-18.0 [facility] Comment on above: Performed By: #### C MP #### [facility] [address] [address] [address] Eboni Smith Urea nitrogen/Creatinine [Mass ratio] 20.7 mg/mg Normal [facility] Comment on above: Performed By: #### C MP #### [facility] [address] [address] [address] Eboni Smith [facility] 22 mm/hr Normal <=30 [facility] Comment on above: Performed By: #### C SUITE #### [facility] [address] [address] [address] Eboni Smith UA RANDOM W/MICROSCOPICon BACTERIA TRACE Abnormal NONE SEEN [facility] Comment on above: Performed By: #### C BC #### [facility] [address] [address] [address] Eboni Smith Bilirubin Ql (U) Negative Normal NEGATIVE [facility] Comment on above: Performed By: #### C BC #### [facility] [address] [place] [address] Dr. Eboni Smith CAST NONE SEEN Normal NONE SEEN [facility] Comment on above: Performed By: #### C BC #### [facility] [address] [place] [address] Dr. Eboni Smith Clarity (U) SL CLOUDY Abnormal CLEAR [facility] Comment on above: Performed By: #### C BC #### [facility] [address] [place] [address] Dr. Eboni Smith Color (U) LT. YELLOW Normal YELLOW [facility] Comment on above: Performed By: #### C BC #### [facility] [address] [place] [address] Dr. Eboni Smith Crystals LM Nom (Urine sed) NONE SEEN Normal NONE SEEN [facility] Comment on above: Performed By: #### C BC #### [facility] [address] [place] [address] Dr. Eboni Smith Epithelial cells LM Ql (Urine sed) FEW Abnormal NONE SEEN /RARE [facility] Comment on above: Performed By: #### C BC #### [facility] [address] [place] [address] Dr. Eboni Smith Glucose Ql (U) Negative Normal NEGATIVE [facility] Comment on above: Performed By: #### C BC #### [facility] [address] [place] [address] Dr. Eboni Smith Hemoglobin Ql (U) TRACE-INTACT Abnormal NEGATIVE [facility] Comment on above: Performed By: #### C BC #### [facility] [address] [place] [address] Dr. Eboni Smith Ketones Ql (U) Negative Normal NEGATIVE [facility] Comment on above: Performed By: #### C BC #### [facility] [address] [place] [address] Dr. Eboni Smith LEUKOCYTES SMALL Abnormal NEGATIVE [facility] Comment on above: Performed By: #### C BC #### [facility] [address] [place] [address] Dr. Eboni Smith MUCOUS NONE SEEN Normal NONE SEEN [facility] Comment on above: Performed By: #### C BC #### [facility] [address] [place] [address] Dr. Eboni Smith Nitrite Ql (U) Negative Normal NEGATIVE [facility] Comment on above: Performed By: #### C BC #### [facility] [address] [place] [address] Dr. Eboni Smith pH (U) 5.5 [pH] Normal 5-9 [facility] Comment on above: Performed By: #### C BC #### [facility] [address] [place] [address] Dr. Eboni Smith RBC 0-2 Normal 0-2 [facility] Comment on above: Performed By: #### C BC #### [facility] [address] [place] [address] Dr. Eboni Smith SPEC GRAVITY 1.005 Normal 1.005-<=1.02 5 [facility] Comment on above: Performed By: #### C BC #### [facility] [address] [place] [address] Dr. Eboni Smith UA PROTEIN Negative Normal NEGATIVE/ TRACE [facility] Comment on above: Performed By: #### C BC #### [facility] [address] [place] [address] Dr. Eboni Smith Urobilinogen Qn (U) 0.2 {Lora'U}/dL Normal 0.2 - 1. 0 [facility] Comment on above: Performed By: #### C BC #### [facility] [address] [place] [address] Dr. Eboni Smith WBC 2-5 Abnormal NONE SEEN [facility] Comment on above: Performed By: #### C BC #### [facility] [address] [place] [address] Dr. Eboni Smith XR shoulder RT min 2V*on XR shoulder RT min 2V* [facility] [employer] Other XR shoulder RT min 2V* [facility] [employer] Other XR shoulder RT min 2V* Joy Doyle [place] [email or web address] Other XR shoulder RT min 2V* [place] [address] [email or web address] Other XR shoulder RT min 2V* XRay Report [email or web address] Other XR shoulder RT min 2V* Signed [email or web address] Other XR shoulder RT min 2V* Patient: Bashir Coats MR#: [id number] [email or web address] Other XR shoulder RT min 2V* : 1955 Acct:[id number] [email or web address] Other XR shoulder RT min 2V* Age/Sex: 67 / F ADM Date: 12/16/22 [email or web address] Other XR shoulder RT min 2V* Loc: XDUCLY Room: Type: REG CLI [email or web address] Other XR shoulder RT min 2V* Attending Dr: Chiara KINGSTON [email or web address] Other XR shoulder RT min 2V* Copies to: VASHTI Carter [email or web address] Other XR shoulder RT min 2V* Ordering Provider: VASHTI Carter [email or web address] Other XR shoulder RT min 2V* Date of Service: 12/16/22 [email or web address] Other XR shoulder RT min 2V* XR/XR elbow RT min 3V*: Right elbow pain;Acute pain of right shoulder [email or web address] Other XR shoulder RT min 2V* ([id number]) XR/XR shoulder RT min 2V*: Right elbow pain;Acute pain of right shoulder [email or web address] Other XR shoulder RT min 2V* RIGHT ELBOW - 4 views [employer] Other XR shoulder RT min 2V* CLINICAL HISTORY: Right elbow and shoulder pain status post fall 2 days ago. [email or web address] Other XR shoulder RT min 2V* COMPARISON: None [email or web address] Other XR shoulder RT min 2V* FINDINGS: [email or web address] Other XR shoulder RT min 2V* Right shoulder: Mild degenerative changes of the AC and glenohumeral joints without acute bony [email or web address] Other XR shoulder RT min 2V* process. [email or web address] Other XR shoulder RT min 2V* Right elbow: Soft tissue swelling. No elbow joint effusion. No acute bony process. Mild spurring [email or web address] Other XR shoulder RT min 2V* along the epicondyles. [email or web address] Other XR shoulder RT min 2V* XR/XR elbow RT min 3V* [employer] Other XR shoulder RT min 2V* IMPRESSION: [email or web address] Other XR shoulder RT min 2V* NO ACUTE BONY PROCESS. [email or web address] Other XR shoulder RT min 2V* Impression dictated by: Tanner Jarquin Jr., D.OCasey12/16/2022 2:46 PM [email or web address] Other XR shoulder RT min 2V* Dictation Location: [place] [address] [email or web address] Other XR shoulder RT min 2V* Transcribed By: COLTON 12/16/22 [facility] [email or web address] Other XR shoulder RT min 2V* Dictated By: Tanner Jarquin Jr, DO 12/16/22 [facility] [email or web address] Other XR shoulder RT min 2V* Signed By: [email or web address] Other XR shoulder RT min 2V* 12/16/22 1830 [email or web address] Other C3 and C4 COMPLEMENTon 09-29 Complement C3, Serum 118 mg/dL Normal 82-167 [facility] Comment on above: Performed By: #### C BC #### [facility] [address] [place] [address] Dr. Eboni Smith Complement C4, Serum 25 mg/dL Normal 12-38 [facility] Comment on above: Performed By: #### C BC #### [facility] [address] [place] [address] Dr. Eboni Smith COMPLEMENT TOTAL (CH50)on Complement, Total (CH50) >60 Normal >41 [facility] Comment on above: Result Comment: Age [...] values. Performed By: #### C SUITE #### [facility] [address] [place] [address] Dr. Eboni Smith CBC AUTO DIFFon 09-28-2022 BASO # 0.0 103/ul Normal 0.0-0.1 [facility] Comment on above: Performed By: #### C BC #### [facility] [address] [place] [address] Dr. Eboni Smith Basophils/100 WBC (Bld) 0.6 % Normal 0.2-2.0 [facility] Comment on above: Performed By: #### C BC #### [facility] [address] [place] [address] Dr. Eboni Smith EO # 0.2 103/ul Normal 0.0-0.7 [facility] Comment on above: Performed By: #### C BC #### [facility] [address] [place] [address] Dr. Eboni Smith Eosinophils/100 WBC (Bld) 2.3 % Normal 0.9-7.0 [facility] Comment on above: Performed By: #### C BC #### [facility] [address] [place] [address] Dr. Eboni Smith Erythrocyte distribution width (RBC) [Ratio] 13.8 % Normal 11.0-15.0 [facility] Comment on above: Performed By: #### C BC #### [facility] [address] [place] [address] Dr. Eboni Smith Hematocrit (Bld) [Volume fraction] 39.7 % Normal 36.0-48.0 [facility] Comment on above: Performed By: #### C BC #### [facility] [address] [place] [address] Dr. Eboni Smith Hemoglobin (Bld) [Mass/Vol] 12.7 g/dL Normal 12.0-16.0 [facility] Comment on above: Performed By: #### C BC #### [facility] [address] [place] [address] Dr. Eboni Smith IG # 0.02 10e3/ul Normal 0.00-0.03 [facility] Comment on above: Performed By: #### C BC #### [facility] [address] [place] [address] Dr. Eboni Smith IG % 0.3 % Normal 0.0-0.5 [facility] Comment on above: Performed By: #### C BC #### [facility] [address] [place] [address] Dr. Eboni Smith LYMPH # 2.1 103/ul Normal 1.2-3.8 [facility] Comment on above: Performed By: #### C BC #### [facility] [address] [place] [address] Dr. Eboni Smith Lymphocytes/100 WBC (Bld) 31.2 % Normal 20.5-60.0 [facility] Comment on above: Performed By: #### C BC #### [facility] [address] [place] [address] Dr. Eboni Smith MANUAL DIFF REQ NO Normal [facility] Comment on above: Performed By: #### C BC #### [facility] [address] [place] [address] Dr. Eboni Smith MCH (RBC) [Entitic mass] 29.3 pg Normal 26.7-34.0 [facility] Comment on above: Performed By: #### C BC #### [facility] [address] [place] [address] Dr. Eboni Smith MCHC (RBC) [Mass/Vol] 32.0 g/dL Normal 29.9-35.2 [facility] Comment on above: Performed By: #### C BC #### [facility] [address] [place] [address] Dr. Eboni Smith MCV (RBC) [Entitic vol] 91.5 fL Normal 81.0-99.0 [facility] Comment on above: Performed By: #### C BC #### [facility] [address] [place] [address] Dr. Eboni Smiht MONO # 0.5 103/ul Normal 0.3-0.8 [facility] Comment on above: Performed By: #### C BC #### [facility] [address] [place] [address] Dr. Eboni Smith Monocytes/100 WBC (Bld) 7.3 % Normal 1.7-12.0 [facility] Comment on above: Performed By: #### C BC #### [facility] [address] [place] [address] Dr. Eboni Smith NEUT # 4.0 103/ul Normal 1.4-6.5 [facility] Comment on above: Performed By: #### C BC #### [facility] [address] [place] [address] Dr. Eboni Smith Neutrophils/100 WBC (Bld) 58.3 % Normal 43.0-75.0 [facility] Comment on above: Performed By: #### C BC #### [facility] [address] [place] [address] Dr. Eboni Smith Platelet mean volume (Bld) [Entitic vol] 8.5 fL Critically low 9.5-13.5 [facility] Comment on above: Performed By: #### C BC #### [facility] [address] [place] [address] Dr. Eboni Smith PLT 200 103/ul Normal 150-450 [facility] Comment on above: Performed By: #### C BC #### [facility] [address] [place] [address] Dr. Eboni Smith RBC 4.34 106/ul Normal 4.20-5.40 [facility] Comment on above: Performed By: #### C BC #### [facility] [address] [place] [address] Dr. Eboni Smith WBC 6.9 103/ul Normal 4.0-11.0 [facility] Comment on above: Performed By: #### C BC #### [facility] [address] [place] [address] Dr. Eboni Smith PROF 14(COMP METB)on 09-28- 022 Albumin [Mass/Vol] 3.4 g/dL Normal 3.4-5.0 [facility] Comment on above: Performed By: #### C BC #### [facility] [address] [place] [address] Dr. Eboni Smith Albumin/Globulin [Mass ratio] 1.0 {ratio} Normal [facility] Comment on above: Performed By: #### C BC #### [facility] [address] [place] [address] Dr. Eboni Smith ALP [Catalytic activity/Vol] 75 U/L Normal 46-116 [facility] Comment on above: Performed By: #### C BC #### [facility] [address] [place] [address] Dr. Eboni Smith ALT [Catalytic activity/Vol] 16 U/L Normal 14-59 [facility] Comment on above: Performed By: #### C BC #### [facility] [address] [place] [address] Dr. Eboni Smith Anion gap [Moles/Vol] 10.2 mmol/L Normal [facility] Comment on above: Performed By: #### C BC #### [facility] [address] [place] [address] [address] Eboni Smith AST [Catalytic activity/Vol] 18 U/L Normal 15-37 [facility] Comment on above: Performed By: #### C BC #### [facility] [address] [address] [address] Eboni Smith Bilirubin [Mass/Vol] 0.3 mg/dL Normal 0.2-1.0 [facility] Comment on above: Performed By: #### C BC #### [facility] [address] [address] [address] Eboni Smith Calcium [Mass/Vol] 9.3 mg/dL Normal 8.5-10.1 [facility] Comment on above: Performed By: #### C BC #### [facility] [address] [place] [address] Dr. Eboni Smith Chloride [Moles/Vol] 105 mmol/L Normal 98-107 [facility] Comment on above: Performed By: #### C BC #### [facility] [address] [address] [address] Eboni Smith CO2 [Moles/Vol] 29.1 mmol/L Normal 21.0-32.0 [facility] Comment on above: Performed By: #### C BC #### [facility] [address] [place] [address] Dr. Eboni Smith Creatinine [Mass/Vol] 0.87 mg/dL Normal 0.55-1.02 [facility] Comment on above: Performed By: #### C BC #### [facility] [address] [place] [address] [address] Eboni Smith EGFR-AF SINGAPOREAN >60 Normal >=60 [facility] Comment on above: Performed By: #### C BC #### [facility] [address] [place] [address] Dr. Eboni Smith EGFR-NON AF SINGAPOREAN >60 Normal >=60 [facility] Comment on above: Performed By: #### C BC #### [facility] [address] [place] [address] Dr. Eboni Smith Globulin (S) [Mass/Vol] 3.4 g/dL Normal [facility] Comment on above: Performed By: #### C BC #### [facility] [address] [place] [address] [address] Eboni Smith Glucose [Mass/Vol] 82 mg/dL Normal 74-106 [facility] Comment on above: Performed By: #### C BC #### [facility] [address] [address] [address] Eboni Smith Potassium [Moles/Vol] 4.3 mmol/L Normal 3.5-5.1 [facility] Comment on above: Performed By: #### C BC #### [facility] [address] [place] [address] Dr. Eboni Smith Protein [Mass/Vol] 6.8 g/dL Normal 6.4-8.2 [facility] Comment on above: Performed By: #### C BC #### [facility] [address] [place] [address] Dr. Eboni Smith Sodium [Moles/Vol] 140 mmol/L Normal 136-145 [facility] Comment on above: Performed By: #### C BC #### [facility] [address] [place] [address] Dr. Eboni Smith Urea nitrogen [Mass/Vol] 16.0 mg/dL Normal 7.0-18.0 [facility] Comment on above: Performed By: #### C BC #### [facility] [address] [place] [address] Dr. Eboni Smith Urea nitrogen/Creatinine [Mass ratio] 18.4 mg/mg Normal [facility] Comment on above: Performed By: #### C BC #### [facility] [address] [place] [address] Dr. Eboni Smith SED RATE [facility] 2021 SED RATE 17 mm/hr Normal <=30 [facility] Comment on above: Performed By: #### C BC #### [facility] [address] [place] [address] Dr. Eboni Smith UA RANDOM W/MICROSCOPICon BACTERIA TRACE Abnormal NONE SEEN [facility] Comment on above: Performed By: #### C BC #### [facility] [address] [place] [address] Dr. Eboni Smith Bilirubin Ql (U) Negative Normal NEGATIVE [facility] Comment on above: Performed By: #### C BC #### [facility] [address] [place] [address] Dr. Eboni Smith CAST NONE SEEN Normal NONE SEEN [facility] Comment on above: Performed By: #### C BC #### [facility] [address] [place] [address] Dr. Eboni Smith Clarity (U) CLEAR Normal CLEAR [facility] Comment on above: Performed By: #### C BC #### [facility] [address] [place] [address] Dr. Eboni Smith Color (U) LT. YELLOW Normal YELLOW [facility] Comment on above: Performed By: #### C BC #### [facility] [address] [place] [address] Dr. Eboni Smith Crystals LM Nom (Urine sed) NONE SEEN Normal NONE SEEN [facility] Comment on above: Performed By: #### C BC #### [facility] [address] [place] [address] Dr. Eboni Smith Epithelial cells LM Ql (Urine sed) FEW Abnormal NONE SEEN /RARE [facility] Comment on above: Performed By: #### C BC #### [facility] [address] [place] [address] Dr. Eboni Smith Glucose Ql (U) Negative Normal NEGATIVE [facility] Comment on above: Performed By: #### C BC #### [facility] [address] [place] [address] Dr. Eboni Smith Hemoglobin Ql (U) MODERATE Abnormal NEGATIVE [facility] Comment on above: Performed By: #### C BC #### [facility] [address] [place] [address] Dr. Eboni Smith Ketones Ql (U) Negative Normal NEGATIVE [facility] Comment on above: Performed By: #### C BC #### [facility] [address] [place] [address] Dr. Eboni Smith LEUKOCYTES TRACE Abnormal NEGATIVE [facility] Comment on above: Performed By: #### C BC #### [facility] [address] [place] [address] Dr. Eboni Smith MUCOUS NONE SEEN Normal NONE SEEN [facility] Comment on above: Performed By: #### C BC #### [facility] [address] [place] [address] Dr. Eboni Smith Nitrite Ql (U) Negative Normal NEGATIVE [facility] Comment on above: Performed By: #### C BC #### [facility] [address] [place] [address] Dr. Eboni Smith pH (U) 5.0 [pH] Normal 5-9 [facility] Comment on above: Performed By: #### C BC #### [facility] [address] [place] [address] Dr. Eboni Smith RBC 5-10 Abnormal 0-2 [facility] Comment on above: Performed By: #### C BC #### [facility] [address] [place] [address] Dr. Eboni Smith SPEC GRAVITY 1.010 Normal 1.005-<=1.02 5 [facility] Comment on above: Performed By: #### C BC #### [facility] [address] [place] [address] Dr. Eboni Smith UA PROTEIN Negative Normal NEGATIVE/ TRACE [facility] Comment on above: Performed By: #### C BC #### [facility] [address] [place] [address] Dr. Eboni Smith Urobilinogen Qn (U) 0.2 {Lora'U}/dL Normal 0.2 - 1. 0 [facility] Comment on above: Performed By: #### C BC #### [facility] [address] [place] [address] Dr. Eboni Smith WBC 5-10 Abnormal NONE SEEN [facility] Comment on above: Performed By: #### C BC #### [facility] [address] [address] [address] Eboni Smith COVID-19 SOFIAOrdered By: Whitney Newberry on 09-18-2022 SARS-CoV+SARS-CoV-2 (COVID-19) Ag IA.rapid Ql (Resp) Negative Negative [facility] Comment on above: This is a duplicate [...] EULALIA MORALES Date: 2022-09-18 15:20 Normal [facility] ECHOCARDIO M/2D COMPLETEon 1 11-19-2021 ECHOCARDIO M/2D COMPLETE Patient: BASHIR COATS Exam Date: 09/18/2022 : 1955 Gender:F Ordering : DR ANGELIC VICK M.D. Admission #: [id number] Family : DR STEVE ARMENDARIZ D.O. Order #: [id number] CLICK HERE TO VIEW EXAM ECHOCARDIOGRAM REPORT [...] M.D. on 09/20/2022 at 13:59 Normal [facility] HEMOGLOBINon 09-18-2022 Hemoglobin (Bld) [Mass/Vol] 12.4 g/dL Normal 12.0-16.0 [facility] Comment on above: Performed By: #### C SUITE #### [facility] [address] [place] [address] Dr. Eboni Smith No Panel InformationOrdered By: Alex Newberry on 09-18-2022 SARS Antigen (LFIA) [facility] SARS Antigen (LFIA) [facility] COMPLEMENT TOTAL (CH50)on Complement, Total (CH50) 59 U/mL Normal >41 [facility] Comment on above: Result Comment: Age [...] values. Performed By: #### C H50T #### [facility] [address] [place] [address] Dr. Eboni Smith C3 and C4 COMPLEMENTon 06-10 Complement C3, Serum 118 mg/dL Normal 82-167 [facility] Comment on above: Performed By: #### C SUITE #### [facility] [address] [place] [address] Dr. Eboni Smith Complement C4, Serum 22 mg/dL Normal 12-38 [facility] Comment on above: Performed By: #### C SUITE #### [facility] [address] [place] [address] Dr. Eboni Smith CBC AUTO DIFFon 06-09-2022 BASO # 0.0 103/ul Normal 0.0-0.1 [facility] Comment on above: Performed By: #### C BC #### [facility] [address] [place] [address] Dr. Eboni Smith Basophils/100 WBC (Bld) 0.4 % Normal 0.2-2.0 [facility] Comment on above: Performed By: #### C BC #### [facility] [address] [place] [address] Dr. Eboni Smith EO # 0.2 103/ul Normal 0.0-0.7 [facility] Comment on above: Performed By: #### C BC #### [facility] [address] [place] [address] Dr. Eboni Smith Eosinophils/100 WBC (Bld) 2.3 % Normal 0.9-7.0 [facility] Comment on above: Performed By: #### C BC #### [facility] [address] [place] [address] Dr. Eboni Smith Erythrocyte distribution width (RBC) [Ratio] 13.6 % Normal 11.0-15.0 [facility] Comment on above: Performed By: #### C BC #### [facility] [address] [place] [address] Dr. Eboni Smith Hematocrit (Bld) [Volume fraction] 40.7 % Normal 36.0-48.0 [facility] Comment on above: Performed By: #### C BC #### [facility] [address] [place] [address] Dr. Eboni Smith Hemoglobin (Bld) [Mass/Vol] 12.9 g/dL Normal 12.0-16.0 [facility] Comment on above: Performed By: #### C BC #### [facility] [address] [place] [address] Dr. Eboni Smith IG # 0.02 10e3/ul Normal 0.00-0.03 [facility] Comment on above: Performed By: #### C BC #### [facility] [address] [place] [address] Dr. Eboni Smith IG % 0.3 % Normal 0.0-0.5 [facility] Comment on above: Performed By: #### C BC #### [facility] [address] [place] [address] Dr. Eboni Smith LYMPH # 2.3 103/ul Normal 1.2-3.8 [facility] Comment on above: Performed By: #### C BC #### [facility] [address] [place] [address] Dr. Eboni Smith Lymphocytes/100 WBC (Bld) 33.6 % Normal 20.5-60.0 [facility] Comment on above: Performed By: #### C BC #### [facility] [address] [place] [address] Dr. bEoni Smith MANUAL DIFF REQ NO Normal [facility] Comment on above: Performed By: #### C BC #### [facility] [address] [place] [address] Dr. Eboni Smith MCH (RBC) [Entitic mass] 29.5 pg Normal 26.7-34.0 [facility] Comment on above: Performed By: #### C BC #### [facility] [address] [place] [address] Dr. Eboni Smith MCHC (RBC) [Mass/Vol] 31.7 g/dL Normal 29.9-35.2 [facility] Comment on above: Performed By: #### C BC #### [facility] [address] [address] [address] Eboni Smith MCV (RBC) [Entitic vol] 92.9 fL Normal 81.0-99.0 [facility] Comment on above: Performed By: #### C BC #### [facility] [address] [place] [address] Dr. Eboni Smith MONO # 0.6 103/ul Normal 0.3-0.8 [facility] Comment on above: Performed By: #### C BC #### [facility] [address] [place] [address] Dr. Eboni Smith Monocytes/100 WBC (Bld) 8.1 % Normal 1.7-12.0 [facility] Comment on above: Performed By: #### C BC #### [facility] [address] [place] [address] Dr. Eboni Smith NEUT # 3.8 103/ul Normal 1.4-6.5 [facility] Comment on above: Performed By: #### C BC #### [facility] [address] [place] [address] Dr. Eboni Smith Neutrophils/100 WBC (Bld) 55.3 % Normal 43.0-75.0 [facility] Comment on above: Performed By: #### C BC #### [facility] [address] [address] [address] Eboni Smith Platelet mean volume (Bld) [Entitic vol] 8.8 fL Critically low 9.5-13.5 [facility] Comment on above: Performed By: #### C BC #### [facility] [address] [place] [address] Dr. Eboni Smith PLT 209 103/ul Normal 150-450 [facility] Comment on above: Performed By: #### C BC #### [facility] [address] [place] [address] Dr. Eboni Smith RBC 4.38 106/ul Normal 4.20-5.40 [facility] Comment on above: Performed By: #### C BC #### [facility] [address] [place] [address] Dr. Eboni Smith WBC 6.9 103/ul Normal 4.0-11.0 [facility] Comment on above: Performed By: #### C BC #### [facility] [address] [place] [address] Dr. Eboni Smith PROF 14(COMP METB)on 022 Albumin [Mass/Vol] 3.6 g/dL Normal 3.4-5.0 [facility] Comment on above: Performed By: #### C SUITE #### [facility] [address] [place] [address] Dr. Eboni Smith Albumin/Globulin [Mass ratio] 1.1 {ratio} Normal [facility] Comment on above: Performed By: #### C SUITE #### [facility] [address] [place] [address] Dr. Eboni Smith ALP [Catalytic activity/Vol] 78 U/L Normal 46-116 [facility] Comment on above: Performed By: #### C SUITE #### [facility] [address] [place] [address] Dr. Eboni Smith ALT [Catalytic activity/Vol] 19 U/L Normal 14-59 [facility] Comment on above: Performed By: #### C SUITE #### [facility] [address] [place] [address] Dr. Eboni Smith Anion gap [Moles/Vol] 10.4 mmol/L Normal Th [facility] Comment on above: Performed By: #### C SUITE #### [facility] [address] [place] [address] Dr. Eboni Smith AST [Catalytic activity/Vol] 18 U/L Normal 15-37 [facility] Comment on above: Performed By: #### C SUITE #### [facility] [address] [place] [address] Dr. Eboni Smith Bilirubin [Mass/Vol] 0.3 mg/dL Normal 0.2-1.0 [facility] Comment on above: Performed By: #### C SUITE #### [facility] [address] [address] [address] Eboni Smith Calcium [Mass/Vol] 8.9 mg/dL Normal 8.5-10.1 [facility] Comment on above: Performed By: #### C SUITE #### [facility] [address] [address] [address] Eboni Smith Chloride [Moles/Vol] 105 mmol/L Normal 98-107 [facility] Comment on above: Performed By: #### C SUITE #### [facility] [address] [address] [address] Eboni Smith CO2 [Moles/Vol] 28.8 mmol/L Normal 21.0-32.0 [facility] Comment on above: Performed By: #### C SUITE #### [facility] [address] [place] [address] Dr. Eboni Smith Creatinine [Mass/Vol] 0.88 mg/dL Normal 0.55-1.02 [facility] Comment on above: Performed By: #### C SUITE #### [facility] [address] [place] [address] Dr. Eboni Smith EGFR-AF SINGAPOREAN >60 Normal >=60 [facility] Comment on above: Performed By: #### C SUITE #### [facility] [address] [address] [address] Eboni Smith EGFR-NON AF SINGAPOREAN >60 Normal >=60 [facility] Comment on above: Performed By: #### C SUITE #### [facility] [address] [address] [address] Eboni Smith Globulin (S) [Mass/Vol] 3.3 g/dL Normal [facility] Comment on above: Performed By: #### C SUITE #### [facility] [address] [address] [address] Eboni Smith Glucose [Mass/Vol] 98 mg/dL Normal 74-106 [facility] Comment on above: Performed By: #### C SUITE #### [facility] [address] [address] [address] Eboni Smith Potassium [Moles/Vol] 4.2 mmol/L Normal 3.5-5.1 [facility] Comment on above: Performed By: #### C SUITE #### [facility] [address] [address] [address] Eboni Smith Protein [Mass/Vol] 6.9 g/dL Normal 6.4-8.2 [facility] Comment on above: Performed By: #### C SUITE #### [facility] [address] [address] [address] Eboni Smith Sodium [Moles/Vol] 140 mmol/L Normal 136-145 [facility] Comment on above: Performed By: #### C SUITE #### [facility] [address] [address] [address] Eboni Smith Urea nitrogen [Mass/Vol] 22.0 mg/dL Critically high 7.0-18.0 [facility] Comment on above: Performed By: #### C SUITE #### [facility] [address] [address] [address] Eboni Smith Urea nitrogen/Creatinine [Mass ratio] 25.0 mg/mg Normal [facility] Comment on above: Performed By: #### C SUITE #### [facility] [address] [address] [address] [facility] 21 mm/hr Normal <=30 [facility] Comment on above: Performed By: #### C SUITE #### [facility] [address] [place] [address] Dr. Eboni Smith UA RANDOM W/MICROSCOPICon BACTERIA NONE SEEN Normal NONE SEEN [facility] Comment on above: Performed By: #### U AMIC #### [facility] [address] [place] [address] Dr. Eboni Smith Bilirubin Ql (U) Negative Normal NEGATIVE [facility] Comment on above: Performed By: #### U AMIC #### [facility] [address] [address] [address] Eboni Smith CAST NONE SEEN Normal NONE SEEN [facility] Comment on above: Performed By: #### U AMIC #### [facility] [address] [address] [address] Eboni Smith Clarity (U) CLEAR Normal CLEAR [facility] Comment on above: Performed By: #### U AMIC #### [facility] [address] [address] [address] Eboni Smith Color (U) LT. YELLOW Normal YELLOW [facility] Comment on above: Performed By: #### U AMIC #### [facility] [address] [address] [address] Eboni Smith Crystals LM Nom (Urine sed) NONE SEEN Normal NONE SEEN [facility] Comment on above: Performed By: #### U AMIC #### [facility] [address] [place] [address] Dr. Eboni Smith Epithelial cells LM Ql (Urine sed) FEW Abnormal NONE SEEN /RARE [facility] Comment on above: Performed By: #### U AMIC #### [facility] [address] [place] [address] Dr. Eboni Smith Glucose Ql (U) Negative Normal NEGATIVE [facility] Comment on above: Performed By: #### U AMIC #### [facility] [address] [place] [address] Dr. Eboni Smith Hemoglobin Ql (U) SMALL Abnormal NEGATIVE [facility] Comment on above: Performed By: #### U AMIC #### [facility] [address] [place] [address] Dr. Eboni Smith Ketones Ql (U) Negative Normal NEGATIVE [facility] Comment on above: Performed By: #### U AMIC #### [facility] [address] [place] [address] Dr. Eboni Smith LEUKOCYTES TRACE Abnormal NEGATIVE [facility] Comment on above: Performed By: #### U AMIC #### [facility] [address] [place] [address] Dr. Eboni Smith MUCOUS NONE SEEN Normal NONE SEEN [facility] Comment on above: Performed By: #### U AMIC #### [facility] [address] [address] [address] Eboni Smith Nitrite Ql (U) Negative Normal NEGATIVE [facility] Comment on above: Performed By: #### U AMIC #### [facility] [address] [place] [address] Dr. Eboni Smith pH (U) 6.0 [pH] Normal 5-9 [facility] Comment on above: Performed By: #### U AMIC #### [facility] [address] [place] [address] Dr. Eboni Smith RBC 2-5 Abnormal 0-2 [facility] Comment on above: Performed By: #### U AMIC #### [facility] [address] [place] [address] Dr. Eboni Smith SPEC GRAVITY 1.010 Normal 1.005-<=1.02 5 [facility] Comment on above: Performed By: #### U AMIC #### [facility] [address] [place] [address] Dr. Eboni Smith UA PROTEIN Negative Normal NEGATIVE/ TRACE [facility] Comment on above: Performed By: #### U AMIC #### [facility] [address] [place] [address] Dr. Eboni Smith Urobilinogen Qn (U) 0.2 {Lora'U}/dL Normal 0.2 - 1. 0 [facility] Comment on above: Performed By: #### U AMIC #### [facility] [address] [place] [address] Dr. Eboni Smith WBC 2-5 Abnormal NONE SEEN [facility] Comment on above: Performed By: #### U AMIC #### [facility] [address] [place] [address] Dr. Eboni Smith C3 and C4 COMPLEMENTon 03-01 Complement C3, Serum 110 mg/dL Normal 82-167 [facility] Comment on above: Performed By: #### C SUITE #### [facility] [address] [place] [address] Dr. Eboni Smith Complement C4, Serum 22 mg/dL Normal 12-38 [facility] Comment on above: Performed By: #### C SUITE #### [facility] [address] [place] [address] Dr. Eboni Smith COMPLEMENT TOTAL (CH50)on Complement, Total (CH50) >60 Normal >41 [facility] Comment on above: Result Comment: Age [...] values. Performed By: #### C BC #### [facility] [address] [place] [address] Dr. Eboni Smith CBC AUTO DIFFon 02-28-2022 BASO # 0.0 103/ul Normal 0.0-0.1 [facility] Comment on above: Performed By: #### C SUITE #### [facility] [address] [place] [address] Dr. Eboni Smith Basophils/100 WBC (Bld) 0.2 % Normal 0.2-2.0 [facility] Comment on above: Performed By: #### C SUITE #### [facility] [address] [place] [address] Dr. Eboni Smith EO # 0.1 103/ul Normal 0.0-0.7 [facility] Comment on above: Performed By: #### C SUITE #### [facility] [address] [place] [address] Dr. Eboni Smith Eosinophils/100 WBC (Bld) 1.5 % Normal 0.9-7.0 [facility] Comment on above: Performed By: #### C SUITE #### [facility] [address] [place] [address] Dr. Eboni Smith Erythrocyte distribution width (RBC) [Ratio] 14.6 % Normal 11.0-15.0 [facility] Comment on above: Performed By: #### C SUITE #### [facility] [address] [place] [address] Dr. Eboni Smith Hematocrit (Bld) [Volume fraction] 38.9 % Normal 36.0-48.0 [facility] Comment on above: Performed By: #### C SUITE #### [facility] [address] [place] [address] Dr. Eboni Smith Hemoglobin (Bld) [Mass/Vol] 12.4 g/dL Normal 12.0-16.0 [facility] Comment on above: Performed By: #### C SUITE #### [facility] [address] [place] [address] Dr. Eboni Smith IG # 0.02 10e3/ul Normal 0.00-0.03 [facility] Comment on above: Performed By: #### C SUITE #### [facility] [address] [place] [address] Dr. Eboni Smith IG % 0.2 % Normal 0.0-0.5 [facility] Comment on above: Performed By: #### C SUITE #### [facility] [address] [place] [address] Dr. Eboni Smith LYMPH # 2.3 103/ul Normal 1.2-3.8 [facility] Comment on above: Performed By: #### C SUITE #### [facility] [address] [place] [address] Dr. Eboni Smith Lymphocytes/100 WBC (Bld) 27.7 % Normal 20.5-60.0 [facility] Comment on above: Performed By: #### C SUITE #### [facility] [address] [place] [address] Dr. Eboni Smith MANUAL DIFF REQ NO Normal [facility] Comment on above: Performed By: #### C SUITE #### [facility] [address] [place] [address] Dr. Eboni Smith MCH (RBC) [Entitic mass] 29.1 pg Normal 26.7-34.0 [facility] Comment on above: Performed By: #### C SUITE #### [facility] [address] [place], [place] [id number] Dr. Eboni Smith MCHC (RBC) [Mass/Vol] 31.9 g/dL Normal 29.9-35.2 [facility] Comment on above: Performed By: #### C SUITE #### [facility] [address] [place] [address] Dr. Eboni Smith MCV (RBC) [Entitic vol] 91.3 fL Normal 81.0-99.0 [facility] Comment on above: Performed By: #### C SUITE #### [facility] [address] [place] [address] Dr. Eboni Smith MONO # 0.6 103/ul Normal 0.3-0.8 [facility] Comment on above: Performed By: #### C SUITE #### [facility] [address] [place] [address] Dr. Eboni Smith Monocytes/100 WBC (Bld) 6.7 % Normal 1.7-12.0 [facility] Comment on above: Performed By: #### C SUITE #### [facility] [address] [place] [address] Dr. Eboni Smith NEUT # 5.3 103/ul Normal 1.4-6.5 [facility] Comment on above: Performed By: #### C SUITE #### [facility] [address] [place] [address] Dr. Eboni Smith Neutrophils/100 WBC (Bld) 63.7 % Normal 43.0-75.0 [facility] Comment on above: Performed By: #### C SUITE #### [facility] [address] [place] [address] Dr. Eboni Smith Platelet mean volume (Bld) [Entitic vol] 8.3 fL Critically low 9.5-13.5 [facility] Comment on above: Performed By: #### C SUITE #### [facility] [address] [place] [address] Dr. Eboni Smith PLT 185 103/ul Normal 150-450 [facility] Comment on above: Performed By: #### C SUITE #### [facility] [address] [place] [address] Dr. Eboni Smith RBC 4.26 106/ul Normal 4.20-5.40 [facility] Comment on above: Performed By: #### C SUITE #### [facility] [address] [place] [address] Dr. Eboni Smith WBC 8.2 103/ul Normal 4.0-11.0 [facility] Comment on above: Performed By: #### C SUITE #### [facility] [address] [place] [address] Dr. Eboni Smith PROF 14(COMP METB)on 022 Albumin [Mass/Vol] 3.5 g/dL Normal 3.4-5.0 [facility] Comment on above: Performed By: #### C SUITE #### [facility] [address] [place] [address] Dr. Eboni Smith Albumin/Globulin [Mass ratio] 1.0 {ratio} Normal [facility] Comment on above: Performed By: #### C SUITE #### [facility] [address] [place] [address] Dr. Eboni Smith ALP [Catalytic activity/Vol] 70 U/L Normal 46-116 [facility] Comment on above: Performed By: #### C SUITE #### [facility] [address] [place] [address] Dr. Eboni Smith ALT [Catalytic activity/Vol] 23 U/L Normal 14-59 [facility] Comment on above: Performed By: #### C SUITE #### [facility] [address] [place] [address] Dr. Eboni Smith Anion gap [Moles/Vol] 12.1 mmol/L Normal Th [facility] Comment on above: Performed By: #### C SUITE #### [facility] [address] [place] [address] Dr. bEoni Smith AST [Catalytic activity/Vol] 10 U/L Critically low 15-37 [facility] Comment on above: Performed By: #### C SUITE #### [facility] [address] [place] [address] Dr. Eboni Smith Bilirubin [Mass/Vol] 0.3 mg/dL Normal 0.2-1.0 [facility] Comment on above: Performed By: #### C SUITE #### [facility] [address] [place] [address] Dr. Eboni Smith Calcium [Mass/Vol] 8.9 mg/dL Normal 8.5-10.1 [facility] Comment on above: Performed By: #### C SUITE #### [facility] [address] [place] [address] Dr. Eboni Smith Chloride [Moles/Vol] 104 mmol/L Normal 98-107 [facility] Comment on above: Performed By: #### C SUITE #### [facility] [address] [place] [address] Dr. Eboni Smith CO2 [Moles/Vol] 27.5 mmol/L Normal 21.0-32.0 [facility] Comment on above: Performed By: #### C SUITE #### [facility] [address] [place] [address] Dr. Eboni Smith Creatinine [Mass/Vol] 0.88 mg/dL Normal 0.55-1.02 [facility] Comment on above: Performed By: #### C SUITE #### [facility] [address] [place] [address] Dr. Eboni Smith EGFR-AF SINGAPOREAN >60 Normal >=60 [facility] Comment on above: Performed By: #### C SUITE #### [facility] [address] [place] [address] Dr. Eboni Smith EGFR-NON AF SINGAPOREAN >60 Normal >=60 [facility] Comment on above: Performed By: #### C SUITE #### [facility] [address] [place] [address] Dr. Eboni Smith Globulin (S) [Mass/Vol] 3.4 g/dL Normal [facility] Comment on above: Performed By: #### C SUITE #### [facility] [address] [place] [address] Dr. Eboni Smith Glucose [Mass/Vol] 105 mg/dL Normal 74-106 [facility] Comment on above: Performed By: #### C SUITE #### [facility] [address] [address] [address] Eboni Smith Potassium [Moles/Vol] 4.3 mmol/L Normal 3.5-5.1 [facility] Comment on above: Performed By: #### C SUITE #### [facility] [address] [address] [address] Eboni Smith Protein [Mass/Vol] 6.9 g/dL Normal 6.4-8.2 [facility] Comment on above: Performed By: #### C SUITE #### [facility] [address] [address] [address] Eboni Smith Sodium [Moles/Vol] 139 mmol/L Normal 136-145 [facility] Comment on above: Performed By: #### C SUITE #### [facility] [address] [address] [address] Eboni Smith Urea nitrogen [Mass/Vol] 26.0 mg/dL Critically high 7.0-18.0 [facility] Comment on above: Performed By: #### C SUITE #### [facility] [address] [address] [address] Eboni Smith Urea nitrogen/Creatinine [Mass ratio] 29.5 mg/mg Normal [facility] Comment on above: Performed By: #### C SUITE #### [facility] [address] [address] [address] Eboni Smith SED RATE [facility] 2021 SED RATE 8 mm/hr Normal <=30 [facility] Comment on above: Performed By: #### C BC #### [facility] [address] [address] [address] Eboni Smith UA RANDOM W/MICROSCOPICon BACTERIA TRACE Abnormal NONE SEEN [facility] Comment on above: Performed By: #### C SUITE #### [facility] [address] [address] [address] Eboni Smith Bilirubin Ql (U) Negative Normal NEGATIVE [facility] Comment on above: Performed By: #### C SUITE #### [facility] [address] [place] [address] Dr. Eboni Smith CAST NONE SEEN Normal NONE SEEN [facility] Comment on above: Performed By: #### C SUITE #### [facility] [address] [place] [address] Dr. Eboni Smith Clarity (U) SL CLOUDY Abnormal CLEAR [facility] Comment on above: Performed By: #### C SUITE #### [facility] [address] [place] [address] Dr. Eboni Smith Color (U) LT. YELLOW Normal YELLOW [facility] Comment on above: Performed By: #### C SUITE #### [facility] [address] [place] [address] Dr. Eboni Smith Crystals LM Nom (Urine sed) NONE SEEN Normal NONE SEEN [facility] Comment on above: Performed By: #### C SUITE #### [facility] [address] [place] [address] Dr. Eboni Smith Epithelial cells LM Ql (Urine sed) RARE Normal NONE SEEN /RARE [facility] Comment on above: Performed By: #### C SUITE #### [facility] [address] [place] [address] Dr. Eboni Smith Glucose Ql (U) Negative Normal NEGATIVE [facility] Comment on above: Performed By: #### C SUITE #### [facility] [address] [place] [address] Dr. Eboni Smith Hemoglobin Ql (U) SMALL Abnormal NEGATIVE [facility] Comment on above: Performed By: #### C SUITE #### [facility] [address] [place] [address] Dr. Eboni Smith Ketones Ql (U) Negative Normal NEGATIVE [facility] Comment on above: Performed By: #### C SUITE #### [facility] [address] [place] [address] Dr. Eboni Smith LEUKOCYTES SMALL Abnormal NEGATIVE [facility] Comment on above: Performed By: #### C SUITE #### [facility] [address] [place] [address] Dr. Eboni Smith MUCOUS NONE SEEN Normal NONE SEEN [facility] Comment on above: Performed By: #### C SUITE #### [facility] [address] [place] [address] Dr. Eboni Smith Nitrite Ql (U) Negative Normal NEGATIVE [facility] Comment on above: Performed By: #### C SUITE #### [facility] [address] [place] [address] Dr. Eboni Smith pH (U) 5.0 [pH] Normal 5-9 [facility] Comment on above: Performed By: #### C SUITE #### [facility] [address] [place] [address] Dr. Eboni Smith RBC 0-2 Normal 0-2 [facility] Comment on above: Performed By: #### C SUITE #### [facility] [address] [place] [address] Dr. Eboni Smith SPEC GRAVITY 1.025 Normal 1.005-<=1.02 5 [facility] Comment on above: Performed By: #### C SUITE #### [facility] [address] [place] [address] Dr. Eboni Smith UA PROTEIN Negative Normal NEGATIVE/ TRACE [facility] Comment on above: Performed By: #### C SUITE #### [facility] [address] [place] [address] Dr. Eboni Smith Urobilinogen Qn (U) 0.2 {Lora'U}/dL Normal 0.2 - 1. 0 [facility] Comment on above: Performed By: #### C SUITE #### [facility] [address] [place] [address] Dr. Eboni Smith WBC 2-5 Abnormal NONE SEEN [facility] Comment on above: Performed By: #### C SUITE #### [facility] [address] [place] [address] Dr. Eboni Smith XR LSPINE 2_3 VIEWSon [...] by: EULALIA MORALES Date: 2022-02-28 16:24 Normal [facility] COVID-19 Positive/Negativeon 03-15-2021 SARS-CoV-2 (COVID-19) N gene TERRIE+probe Ql (Resp) Negative Negative [facility] Comment on above: Testing for SARS-CoV -2 by RT-PCRThis test was developed and its performance characteristics determined by [employer] ([employer]) and validated at the [facility]. This test has not been FDA cleared [...] done 08/25/19 done, results negative Normal [facility] Operative Reporton 9 Operative Report Result type: Progres s Note-Physician Result date: September 02, 2019 14:16 EST Result status: Auth (Verified) Result title: EU Local Female Cystoscopy w/ or w/o UD - FT Performed by: David ALARCON MD on September 02, 2019 14:17 EST Verified by: David ALARCON MD on September 02, 2019 14:17 EST Encounter info: [id number], [facility], Outpatient, 09/02/2019 - 09/02/2019 * Final [...] Time Signed: 09/02/19 14:17 EST Normal [facility] Comment on above: Result Comment: Elec tronically [...] antibiotic coverage, Follow up arranged. 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 CODING DATE: 09/03/2019 FINAL [facility] STATUS: Home (Routine DC) PAYOR: Medicare APC [...] Jessica Morillo Date Saved: 09/03/2019 09:50 am [facility] Main OR Intraoperative Recor don 09-02-2019 Main OR Intraoperative Record IntraOp Document Type FTURO Summary Primary Physician: David ALARCON MD Finalized Date/Time: 09/02/19 14:16:24 Pt. Name: BASHIR COATS /Sex: 1955 Female Med Rec #: [id number] Physician: David ALARCON MD Financial #: [id number] Pt. 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 Surgeon Description CYSTOSCOPY LOCAL Primary Procedure Yes Primary Surgeon David ALARCON MD Start 09/02/19 14:11:00 Stop 09/02/19 14:14:00 Anesthesia Type Local Surgical Service Urology Wound Class 2 - Clean-Contaminated Last Modified By: Jose De Jesus MORRISSEY, RN, Hilda 09/02/19 14:15:30 General Case Data FTURO [...] De Jesus MORRISSEY, RUBIO, Applicable) Yarely Stevens ROLLER PRINTER, Noemi Time Out Complete 09/02/19 14:11:00 Allergies [...] De Jesus MORRISSEY RN, Kelly 09/02/19 14:16 Normal [facility] Main OR Preoperative Recordo n 09-02-2019 Main OR Preoperative Record Holding Area Document Type FTURO Summary Primary Physician: David ALARCON MD Finalized Date/Time: 09/02/19 14:09:52 Pt. Name: BASHIR COATS D.O.B./Sex: 1955 Female Med Rec #: [id number] Physician: David ALARCON MD Financial #: [id number] Pt. Type: O Room/Bed: / Admit/Disch: 09/02/19 [...] MORRISSEY RN, Kelly 09/02/19 14:09 Normal [facility] MRI LUMBAR SPINE WO CONTRAST on 08-07-2018 MRI LUMBAR SPINE WO CONTRAST [facility] [address] [place] [address] Patient Name: BASHIR COATS: 1955Sex: FAge: Race: WhiteMRN: [id number]. Location: 84Patient Status: DVisit #: [id number] Date: 07/10/2018 12:35:00 PMCompleted Date: 08/07/2018 02:49 PMRequesting Provider: GARETH REYES Attending Provider: Report Copy To: Signs & Symptoms: M54.5 Low back pain [id number]: [place], NO FB per [facility] auth # [id number] 07/29/18-09/27/18 [id number] *erComments: , , , Ordering Provider - GARETH REYES MD , Exam: MRI LUMBAR SPINE WO CONTRASTAccession #: [id number] MRI LUMBAR SPINE WO CONTRAST 08/07/2018 2:49 [...] above. Electronically signed by:Parul Whitfield. Transcribed by: [email or web address], User Resident: Electronically Signed by: PARUL WHITFIELD @ 08/08/2018 02:33 PM Normal [facility] Comment on above: Order Comment: , , = ========= , Ordering Provider - GARETH REYES MD , Operative Reporton 8 Operative Report MR#: [id number] [facility] Pt. Name: Bashir Coats Room #: 0C Discharge Date: Birthdate: 1955 OPERATIVE REPORTDATE OF SURGERY: 07/31/2018SURGEON: Pavel Leon M.D.PREOPERATIVE DIAGNOSIS: Soft tissue calcifications, right small fingertip.POSTOPERATI VE DIAGNOSIS: Soft tissue calcifications, right small fingertip.PROCEDURE: Excision of calcific lesions, right small finger tip.OPERATIONS ADMINISTRATIVE ASSISTANT: Christopher Gay M.D.ANESTHESIA: Local 1% plain lidocaine.INDICATION [...] brought to the recovery area in stable condition.Mta lly Signed by:Pavel Leon M.D. 08/01/2018 09:47 A Stephanie Leon M.D.Date Dict: 07/31/2018/11:05 A/Pavel Leon M.D.Date Trans: 07/31/2018 12:55 P/[id number]: Gee Merchant D.O. [address] [facility] [address] [facility] Vital Signs Date Time Vital Sign Value Performing Clinician Facility 08-13-2024 11:52-0400 Body height 149.86 cm DO Steve Ball Work Phone: [facility] 08-13-2024 11:52-0400 Body mass index (BMI) [Ratio] 35.7 kg/m2 DO Steve Ball Work Phone: [facility] 08-13-2024 11:52-0400 Body temperature 97.9 [degF] DO Steve Ball Work Phone: [facility] 08-13-2024 11:52-0400 Body weight 80.28 kg DO Steve Ball Work Phone: [facility] 08-13-2024 11:52-0400 Diastolic blood pressure 82 mm[Hg] DO Steve Ball Work Phone: [facility] 08-13-2024 11:52-0400 Heart rate 84 /min DO Steve Ball Work Phone: [facility] 08-13-2024 11:52-0400 SaO2% (BldA) [Mass fraction] 98 % DO Steve Ball Work Phone: [facility] 08-13-2024 11:52-0400 Systolic blood pressure 136 mm[Hg] DO Steve Ball Work Phone: [facility] 07-15-2024 14:44-0400 Body height 152.4 cm Sujey Camargo MD Work Phone: [facility] 07-15-2024 14:44-0400 Body mass index (BMI) [Ratio] 34.57 kg/m2 Sujey Camargo MD Work Phone: [facility] 07-15-2024 14:44-0400 Body weight 80.29 kg Sujey Camargo MD Work Phone: [facility] 07-15-2024 14:44-0400 Diastolic blood pressure 74 mm[Hg] Sujey Camargo MD Work Phone: [facility] 07-15-2024 14:44-0400 Systolic blood pressure 142 mm[Hg] Sujey Camargo MD Work Phone: [facility] 07-02-2024 14:40-0400 Body height 152.4 cm DO Steve Ball Work Phone: [facility] 07-02-2024 14:40-0400 Body mass index (BMI) [Ratio] 34.9 kg/m2 DO Steve Ball Work Phone: [facility] 07-02-2024 14:40-0400 Body weight 81.19 kg DO Steve Ball Work Phone: [facility] 07-02-2024 14:40-0400 Diastolic blood pressure 78 mm[Hg] DO Steve Ball Work Phone: [facility] 07-02-2024 14:40-0400 Heart rate 72 /min DO Steve Ball Work Phone: [facility] 07-02-2024 14:40-0400 Respiratory rate 12 /min DO Steve Ball Work Phone: [facility] 07-02-2024 14:40-0400 Systolic blood pressure 141 mm[Hg] DO Steve Ball Work Phone: [facility] 06-09-2024 14:21-0400 Body height 152.4 cm DO Steve Ball Work Phone: [facility] 06-09-2024 14:21-0400 Body mass index (BMI) [Ratio] 34.2 kg/m2 DO Steve Ball Work Phone: [facility] 06-09-2024 14:21-0400 Body weight 79.37 kg DO Steve Ball Work Phone: [facility] 02-06-2024 12:05-0400 Body height 152.4 cm DO Steve Ball Work Phone: [facility] 02-06-2024 12:05-0400 Body mass index (BMI) [Ratio] 34.2 kg/m2 DO Steve Ball Work Phone: [facility] 02-06-2024 12:05-0400 Body temperature 98 [degF] DO Steve Ball Work Phone: [facility] 02-06-2024 12:05-0400 Body weight 79.37 kg DO Steve Ball Work Phone: [facility] 02-06-2024 12:05-0400 Diastolic blood pressure 70 mm[Hg] DO Steve Ball Work Phone: [facility] 02-06-2024 12:05-0400 Heart rate 76 /min DO Steve Ball Work Phone: [facility] 02-06-2024 12:05-0400 Respiratory rate 16 /min DO Stvee Ball Work Phone: [facility] 02-06-2024 12:05-0400 SaO2% (BldA) [Mass fraction] 97 % DO Steve Ball Work Phone: [facility] 02-06-2024 12:05-0400 Systolic blood pressure 138 mm[Hg] DO Steve Ball Work Phone: [facility] 12-26-2023 12:07-0400 Body height 152.4 cm DO Steve Ball Work Phone: [facility] 12-26-2023 12:07-0400 Body mass index (BMI) [Ratio] 34.2 kg/m2 DO Steve Ball Work Phone: [facility] 12-26-2023 12:07-0400 Body temperature 97.8 [degF] DO Steve Ball Work Phone: [facility] 12-26-2023 12:07-0400 Body weight 79.37 kg DO Steve Ball Work Phone: [facility] 12-26-2023 12:07-0400 Diastolic blood pressure 64 mm[Hg] DO Steve Ball Work Phone: [facility] 12-26-2023 12:07-0400 Heart rate 84 /min DO Steve Ball Work Phone: [facility] 12-26-2023 12:07-0400 Respiratory rate 16 /min DO Steve Ball Work Phone: [facility] 12-26-2023 12:07-0400 SaO2% (BldA) [Mass fraction] 98 % DO Steve Ball Work Phone: [facility] 12-26-2023 12:07-0400 Systolic blood pressure 116 mm[Hg] DO Steve Ball Work Phone: [facility] 10-25-2023 13:45-0500 Body height 154.94 cm Alex [email or web address] Other [facility] 10-25-2023 13:45-0500 Body mass index (BMI) [Ratio] 34.38 kg/m2 Alex [email or web address] Other [facility] [employer] Other 10-25-2023 13:45-0500 Body weight 82.56 kg Alex De La [employer] Other [facility] [employer] Other 10-25-2023 13:45-0500 Body weight 82.55 kg DO Steve Ball Work Phone: [facility] 10-09-2023 15:00-0500 Body height 154.94 cm Steve Ball Other [employer] Other 10-09-2023 15:00-0500 Body mass index (BMI) [Ratio] 34.38 kg/m2 Steve Ball Other [employer] Other 10-09-2023 15:00-0500 Body weight 82.56 kg Steve Ball Other [employer] Other 10-09-2023 15:00-0500 Diastolic blood pressure 81 mm[Hg] Steve Ball Other [employer] Other 10-09-2023 15:00-0500 Respiratory rate 12 /min Steve Ball Other [employer] Other 10-09-2023 15:00-0500 Systolic blood pressure 130 mm[Hg] Steve Ball Other [employer] Other 06-07-2023 12:45-0400 Body height 154.94 cm Chiara Damon Other [employer] Other 06-07-2023 12:45-0400 Body mass index (BMI) [Ratio] 34.27 kg/m2 Chiara Aranamond Other [employer] Other 06-07-2023 12:45-0400 Body temperature 98.9 [degF] Chiara Aranamond Other [employer] Other 06-07-2023 12:45-0400 Body weight 82.28 kg Chiara Aranamond Other [employer] Other 06-07-2023 12:45-0400 Diastolic blood pressure 75 mm[Hg] Chiara Marisol Other [employer] Other 06-07-2023 12:45-0400 Respiratory rate 18 /min Chiara Marisol Other [employer] Other 06-07-2023 12:45-0400 SaO2% (BldA) [Mass fraction] 98 % Chiara Marisol Other [employer] Other 06-07-2023 12:45-0400 Systolic blood pressure 155 mm[Hg] Chiara Marisol Other [employer] Other 01-29-2023 15:50-0400 Body height 154.94 cm Chiara Marisol Other [employer] Other 01-29-2023 15:50-0400 Body mass index (BMI) [Ratio] 34.01 kg/m2 Chiara Marisol Other [employer] Other 01-29-2023 15:50-0400 Body temperature 98 [degF] Chiara Marisol Other [employer] Other 01-29-2023 15:50-0400 Body weight 81.65 kg Chiara Marisol Other [employer] Other 01-29-2023 15:50-0400 Diastolic blood pressure 81 mm[Hg] Chiara Marisol Other [employer] Other 01-29-2023 15:50-0400 Respiratory rate 18 /min Chiara Marisol Other [employer] Other 01-29-2023 15:50-0400 SaO2% (BldA) [Mass fraction] 93 % Chiara Marisol Other [employer] Other 01-29-2023 15:50-0400 Systolic blood pressure 153 mm[Hg] Chiara Marisol Other [employer] Other 12-16-2022 13:55-0500 Body height 154.94 cm Chiara Marisol Other [employer] Other 12-16-2022 13:55-0500 Body mass index (BMI) [Ratio] 34.84 kg/m2 Chiara Damon Other [employer] Other 12-16-2022 13:55-0500 Body temperature 98.8 [degF] Chiara Damon Other [employer] Other 12-16-2022 13:55-0500 Body weight 83.64 kg Chiara Damon Other [employer] Other 12-16-2022 13:55-0500 Diastolic blood pressure 69 mm[Hg] Chiara Damon Other [employer] Other 12-16-2022 13:55-0500 Respiratory rate 18 /min Chiara Damon Other [employer] Other 12-16-2022 13:55-0500 Systolic blood pressure 140 mm[Hg] Chiara Damon Other [employer] Other 12-06-2022 13:36-0500 Diastolic blood pressure 66 mm[Hg] DO Steve Ball Work Phone: [facility] 12-06-2022 13:36-0500 Heart rate 77 /min DO Steve Ball Work Phone: [facility] 12-06-2022 13:36-0500 Respiratory rate 16 /min DO Steve Ball Work Phone: [facility] 12-06-2022 13:36-0500 SaO2% (BldA) [Mass fraction] 98 % DO Steve Ball Work Phone: [facility] 12-06-2022 13:36-0500 Systolic blood pressure 118 mm[Hg] DO Steve Ball Work Phone: [facility] 12-06-2022 12:07-0500 Body height 152.4 cm DO Steve Ball Work Phone: [facility] 12-06-2022 12:07-0500 Body temperature 98.7 [degF] DO Steve Ball Work Phone: [facility] 12-06-2022 12:07-0500 Body weight 80.73 kg DO Steve Ball Work Phone: [facility] 09-20-2022 14:32-0500 Diastolic blood pressure 80 mm[Hg] DO Steve Ball Work Phone: [facility] 09-20-2022 14:32-0500 Heart rate 72 /min DO Steve Ball Work Phone: [facility] 09-20-2022 14:32-0500 Respiratory rate 16 /min DO Steve Ball Work Phone: [facility] 09-20-2022 14:32-0500 SaO2% (BldA) [Mass fraction] 98 % DO Steve Ball Work Phone: [facility] 09-20-2022 14:32-0500 Systolic blood pressure 140 mm[Hg] DO Steve Ball Work Phone: [facility] 09-20-2022 14:02-0500 Inhaled oxygen flow rate 6 L/min DO Steve Ball Work Phone: [facility] 09-20-2022 12:20-0500 Body height 149.86 cm DO Steve Ball Work Phone: [facility] 09-20-2022 12:20-0500 Body temperature 99.2 [degF] DO Steve Ball Work Phone: [facility] 09-20-2022 12:20-0500 Body weight 79.83 kg DO Steve Ball Work Phone: [facility] Encounters Encounter Date Encounter Type Care Provider Facility Start: 08-13-2024 End: 08-13-2024 ambulatory DO Steve Ball Work Phone: [facility] Work Phone: Start: 08-13-2024 End: 08-13-2024 Patient encounter procedure DO Steve Armendariz Work Phone: [facility] Work Phone: Start: 07-16-2024 End: 07-16-2024 ambulatory DO Steve Armendariz Work Phone: [facility] Work Phone: Start: 07-16-2024 End: 07-16-2024 Patient encounter procedure DO Steve Armendariz Work Phone: [facility] Work Phone: Start: 07-15-2024 End: 07-15-2024 Office outpatient new 45 minutes Sujey Camargo MD Work Phone: [facility] Comment on above: Presbylarynges (Prim ottoniel Dx); Hoarse; LPRD (laryngopharyngeal reflux disease) Start: 07-15-2024 End: 07-15-2024 ambulatory SUJEY CAMARGO Not Available Start: 07-15-2024 End: 07-15-2024 Bamboo flowsheet Sujey Camargo MD Work Phone: [facility] Start: 07-15-2024 End: 07-15-2024 Bamshuo barbara Camargo MD Work Phone: [facility] Start: 07-11-2024 Non-patient / Non-visit DO Ermias Armendariz Work Phone: [facility] Work Phone: Start: 07-02-2024 End: 07-02-2024 ambulatory DO Steve Armendariz Work Phone: [facility] Work Phone: Start: 07-02-2024 End: 07-02-2024 Patient encounter procedure DO Steve Armendariz Work Phone: [facility] Work Phone: Start: 06-29-2024 Patient encounter procedure DO Steve Armendariz Work Phone: [facility] Start: 06-17-2024 Non-patient / Non-visit DO Ermias [facility]endariz [facility] Phone[facility] Work Phone: Start: 06-09-2024 End: 06-09-2024 ambulatory DO Steve Ball Work Phone: [facility] Work Phone: Start: 06-09-2024 End: 06-09-2024 Patient encounter procedure DO Steve Armendariz Work Phone: [facility] Gastroenterology Work Phone: Start: 06-05-2024 End: 06-05-2024 Patient encounter procedure DO Steve Armendariz Work Phone: [facility] Work Phone: Start: 06-05-2024 End: 06-05-2024 ambulatory DO Steve Armendariz Work Phone: [facility] Work Phone: Start: 05-29-2024 End: 05-29-2024 ambulatory BERTIN CORRAL Not Available Start: 05-27-2024 End: 05-27-2024 ambulatory [facility] Work Phone: Start: 05-27-2024 End: 05-27-2024 Patient encounter procedure [facility] Gastroenterology Work Phone: Start: 05-15-2024 End: 05-15-2024 ambulatory BERTIN BROWNE Not Available Start: 03-18-2024 End: 03-18-2024 ambulatory BERTIN Geoff BROWNE Not Available Start: 02-26-2024 End: 02-26-2024 ambulatory BERTIN Geoff CORRAL Not Available Start: 02-06-2024 End: 02-06-2024 ambulatory DO Steve Ball Work Phone: [facility] Work Phone: Start: 02-06-2024 End: 02-06-2024 Patient encounter procedure DO Steve Armendariz Work Phone: [facility] Vascular Surgery Work Phone: Start: 01-22-2024 End: 01-22-2024 ambulatory BERTIN CORRAL Not Available Start: 01-14-2024 End: 01-14-2024 Patient encounter procedure DO Steve Armendariz Work Phone: [facility]-Ultrasound [facility] [place] Work Phone: Start: 01-14-2024 End: 01-14-2024 ambulatory DO Steve Armendariz Work Phone: [facility] Work Phone: Start: 12-27-2023 End: 12-27-2023 ambulatory BERTIN CORRAL Not Available Start: 12-26-2023 End: 12-26-2023 Patient encounter procedure DO Steve Armendariz Work Phone: [facility] Vascular Surgery Work Phone: Start: 12-25-2023 Non-patient / Non-visit DO Ermias Armendariz Work Phone: [facility] Work Phone: Start: 12-04-2023 End: 12-04-2023 ambulatory BERTIN CORRAL Not Available Start: 10-25-2023 End: 10-25-2023 ambulatory Alex Newberry Other [email or web address] Other Start: 10-25-2023 Office outpatient vi sit 15 minutes Aelx Newberry [facility] Gastroenterology Start: 10-25-2023 End: 10-25-2023 Patient encounter procedure DO Steve Armendariz Work Phone: [facility] Gastroenterology Work Phone: Start: 10-09-2023 End: 10-09-2023 ambulatory Steve Armendariz Other [employer] Other Start: 10-09-2023 Office outpatient vi sit 25 minutes Steve Armendariz [facility] Start: 10-09-2023 Telephone encounter Steve Armendariz [facility] Start: 06-07-2023 Office outpatient vi sit 15 minutes Chiararoxanna Damon [facility] Start: 06-07-2023 End: 06-07-2023 ambulatory DO Steve Ball Work Phone: [facility] Work Phone: Start: 06-07-2023 End: 06-07-2023 Patient encounter procedure DO Steve Armendariz Work Phone: [facility] Work Phone: Start: 02-08-2023 End: 02-09-[address] DOCTOR DUVAL Facility: Start: 01-29-2023 End: 01-29-2023 ambulatory Chiara Damon Other [employer] Other Start: 01-29-2023 Office outpatient vi sit 15 minutes Chiararoxanna Damon [facility] Start: 12-16-2022 End: 12-16-2022 Patient encounter procedure DO Steve Armendariz Work Phone: [facility] Work Phone: Start: 12-16-2022 End: 12-16-2022 ambulatory DO Steve Armendariz Work Phone: [facility] Work Phone: Start: 12-16-2022 Office outpatient vi sit 15 minutes Chiararoxanna Damon [facility] Start: 12-06-2022 Telephone encounter Steve Armendariz [facility] Start: 12-06-2022 End: 12-06-2022 Admission to same day surgery center DO Steve Ball Work Phone: [facility] Work Phone: Start: 12-06-2022 End: 12-06-2022 ambulatory DO Steve Armendariz Work Phone: [facility] Work Phone: Start: 09-28-2022 End: 09-29-[address] DOCTOR BROWN Facility:[facility] Start: 09-20-2022 End: 09-20-2022 Admission to same day surgery center DO Steve Liliam Work Phone: [facility] Work Phone: Start: 09-18-2022 End: 09-19-[address] ANGELIC VICK Facility:[facility] Start: 09-18-2022 End: 09-18-2022 ambulatory DO Steve Armendariz Work Phone: [facility] Work Phone: Start: 09-18-2022 End: 09-18-2022 Patient encounter procedure DO Steve Armendariz Work Phone: [facility]-Pre-Surgical Testing Start: 07-26-2022 End: 08-25-[address] STEVE ARMENDARIZ Facility:[facility] Start: 06-09-2022 End: 06-10-[address] DOCTOR BROWN Facility:[facility] Start: 04-24-2022 End: 05-19-[address] STEVE ARMENDARIZ Facility:[facility] Start: 04-20-2022 Adult health examination Duran Damon Other [email or web address] Other Start: 03-10-2022 End: 03-11-[address] STEVE ARMENDARIZ Facility:[facility] Start: 02-28-2022 End: 03-01-[address] STEVE ARMENDARIZ Facility:[facility] Start: 03-15-2021 End: 03-15-2021 Patient encounter procedure Pedro Ruiz Work Phone: -Pre-Surgical Testing Start: 08-07-2018 End: 08-08-2018 Patient encounter procedure GARETH REYES Facility:[facility] Start: 07-31-2018 End: 08-01-2018 Patient encounter procedure PAVEL LEON Facility:[facility] Procedures Date Procedure Procedure Detail [...] Treatment Date Care Activity Detail Author Start: 07-15-2024 End: 07-15-2024 Patient encounter procedure 07/15/2024 2:40 PM EDT Office Visit [facility] [address] [facility] [address] [place] [id number] Sujey Camargo MD [address] [facility] [address] [place] [address] Arrived [facility] Comment on above: Arrived Start: 07-02-2024 Patient referral [facility] Work Phone: Start: 01-14-2024 Duplex scan of lower limb veins US venous duplex LE BI [facility] Start: 01-14-2024 US Lower extremity vein - bilateral [facility] Start: 12-06-2022 [facility] Start: 09-20-2022 [facility] MG Breast - bilatera l Screening [facility] Patient Education [facility] Work Phone: Patient referral [facility] Work Phone: US Kidney - bilateral [facility] XR Lumbar spine Views [facility] Payers Date Payer Category Payer Unknown [id number] 2023 Unknown [id number] 1959 Private Health Insurance 101 [id number] 1955 Unknown [id number] [id number]7 1955 Unknown [id number] 2.16.840.1.787965.3.579.2.647 1955 Unknown [id number] 2.16.840.1.159145.3.579.2.593 1955 Unknown [id number] 2.16.840.1.820733.3.579.2.593 1955 Unknown [id number] 2.16.840.1.662910.3.579.2.593 1954 Unknown [id number] 2.16.840.1.637934.3.579.2.593 1954 Unknown [id number] 2.16.840.1.137518.3.579.2.593 1954 Unknown [id number] 2.16.840.1.944102.3.579.2.593 1954 Unknown [id number] 2.16.840.1.094910.3.579.2.593 1954 Unknown [id number] 2.16.840.1.765785.3.579.2.593 1954 Unknown [id number] 2.16.840.1.254031.3.579.2.593 1954 Unknown [id number] 2.16.840.1.413209.3.579.2.1259 1954 Unknown [id number] 2.16.840.1.095012.3.579.2.1259 1954 Unknown [id number] 2.16.840.1.669147.3.579.2.1259 1954 Unknown [id number] 2.16.840.1.061534.3.579.2.1259 1954 Unknown [id number] 2.16.840.1.644839.3.579.2.1259 1954 Unknown [id number] 2.16.840.1.753107.3.579.2.1259 1954 Unknown [id number] 2.16.840.1.161957.3.579.2.1259 1954 Unknown [id number] 2.16.840.1.364987.3.579.2.1259 Medicaid [id number] Private Health Insurance [employer] ce [id number] Self-pay [id number] Unknown [id number] Social History Date Type Detail Facility Tobacco smoking stat [facility] Unknown if ever smoked [facility] Start: 1955 Sex Assigned At Female F [facility] Start: 12-06-2022 End: 12-03-2023 Tobacco smoking status MEIS Never smoked tobacco (finding) [facility] Start: 07-10-2024 End: 07-15-2024 Sex Assigned At [facility] [employer] Other Start: 07-03-2023 Tobacco use and exposure Smokeless tobacco non-user [facility] Start: 07-10-2024 End: 07-15-2024 Alcoholic beverage intake Ex-drinker (finding) [facility] Start: 07-10-2024 End: 07-15-2024 History of Social function [facility] Start: 1955 Sex assigned at Not on file [facility] Goals Date Patient Goal Desired Activity /State Clinical Notes 11-15-2022 to 07-15-2024 Sujey Camargo MD - 07/15/2024 2:40 PM EDT Note Date & Type Note Facility 07-15-2024 History of Presen t illness Narrative Images from the original note were not included. Subjective Patient ID: Bashir Coats is a 69 y.o. female who presents for Hoarseness Pt reports she has been having issues with her voice becoming rhaspy. Especially bad over the past month, but improved now. Improved by using a lozenge or hot tea. No other tx. Pt has a h/o GERD and is followed by Dr Sarah. Review of Systems All other systems reviewed and are negative. 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) 07/10/2024 Systemic sclerosis (CMS/HCC) 06/07/2010 Tarsal tunnel syndrome of right side 07/10/2024 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 Resolved Ambulatory Problems Diagnosis Date Noted Pain in limb 01/23/2012 Past Medical History: Diagnosis Date Arthritis Fibromyalgia H/O degenerative disc disease Osteoarthritis Scleroderma (CMS/HCC) Past Surgical History: Procedure Laterality Date CARPAL TUNNEL RELEASE 2000 CYST REMOVAL finger ESOPHAGUS SURGERY 2018 3 scopes SKIN CANCER EXCISION face basil cell Allergies Allergen Reactions Gentamicin Unknown Meloxicam Unknown Penicillin G Unknown Sulfamethoxazole Unknown Current Outpatient Medications on File Prior to Visit Medication Sig Dispense Refill Ascorbic Acid (vitamin C) 250 MG tablet Take 500 mg by mouth in the morning. BETA GLUCAN PO Take by mouth. cholecalciferol (Vitamin D-3) 25 MCG (1000 UT) capsule Take 1,000 Units by mouth in the morning. cycloSPORINE (Restasis MultiDose) 0.05 % ophthalmic emulsion Administer 1 drop into both eyes in the morning and 1 drop before bedtime. Garlic 2 MG capsule Take by mouth. GRAPE SEED EXTRACT PO Take by mouth. Melatonin 3 MG tablet dispersible Take by mouth. [place] Casey Extract 250 MG capsule Take by mouth. omeprazole (PriLOSEC) [address] capsule Take 10 mg by mouth in the morning. Take before meals. Do not crush or chew. . Probiotic Product (PROBIOTIC BLEND PO) Take by mouth. No current facility-administered medications on file prior to visit. Objective Last Recorded Vitals Vitals: 07/15/24 1444 BP: 142/74 ENT Physical Exam Constitutional Appearance: patient appears well-developed, well-nourished and well-groomed, Head and Face Appearance: head appears normal and face appears atraumatic; Ear Ear Canals: right ear canal normal; left ear canal normal; Tympanic Membranes: right tympanic membrane normal; left tympanic membrane normal; Nose External Nose: nares patent bilaterally; external nose normal; Internal Nose: septum normal; Nose comments: IDL - no mass or ulcer Oral Cavity/Oropharynx Tongue: normal; Oral mucosa: normal; Hard palate: normal; Soft palate: normal; Tonsils: normal; Neck Neck: neck normal; neck palpation normal; Thyroid: thyroid normal; Respiratory Inspection: breathing unlabored; normal breathing rate; Auscultation: breath sounds are clear; Cardiovascular Inspection: extremities are warm and well perfused; no peripheral edema present; Auscultation: regular rate and rhythm; Patient ID: Bashir Coats is a 69 y.o. female. Procedures A diagnostic flexible fiberoptic laryngoscopy was performed. The flexible fiberoptic laryngoscope was placed into the nose and advanced to the level of the tip of the epiglottis. Examination of the larynx including both surfaces of the epiglottis false and true vocal folds, arytenoids and surrounding mucosal surfaces show no evidence of lesion, ulceration or mass. Normal bilateral true vocal fold motion is present. Bilateral piriform sinuses and base of tongue appear without lesion. Tu TVC bowing Assessment/Plan Diagnoses and all orders for this visit: Presbylarynges Hoarse LPRD (laryngopharyngeal reflux disease) Pt has some age-related TVC changes exacerbated by her GERD./ Recommend elevating the HOB all the time. Continue tx O/W per Dr Sarah documented in this encounter [facility] 10-25-2023 Evaluation note Encounter Date Diagnosis Assessment Notes Oct, GERD (gastroeso phageal reflux disease) (ICD-10 - K21.9) The patient likes Omeprazole than Famotidine. She is currently breaking open the 40 mg capsule. She does not use all of the granules. She would like to cut this to 20 mg daily. Start Omeprazole 20 mg dialy. Return visit here in six months [email or web address] Other 12-26-2023 Evaluation note* Encounter Date Diagnosis [...] Echo w/ normal LVEF Sep, Atherosclerosis of [place] arteries of extremities with intermittent claudication, bilateral [...] f/u Rheumatology CT chest, Echo, PFT normal [email or web address] Other 08-24-2023 Evaluation note* Encounter Date Diagnosis [...] the leg home care material was printed [email or web address] Other 04-17-2023 Evaluation note* Encounter Date Diagnosis Assessment Notes Treatment Notes Treatment Clinical Notes Jan, Bronchitis (ICD-10 - J40) Acute bronchitis material was printed Drink plenty fluids, get plenty of rest. Take your doxycycline at home, 1 tablet twice a day for 10 days. Take the prednisone as prescribed until gone. Take Robitussin, [id number] cough medicine, as needed for cough. 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 History general Narrative - Reported* Type Description Date Medical History scleroderma Medical History back pain Medical History GERD Medical History esophageal stricture Surgical History carpal tunnel release Surgical History EGD 11/2022 Hospitalization History blood clot in right leg 2005 [email or web address] Other 02-01-2023 History general Narrative - Reported* Type Description Date Medical History scleroderma Medical History back pain Medical History GERD Medical History esophageal stricture Surgical History carpal tunnel release Surgical History EGD 11/2022 Surgical History Colonoscopy 2020 Hospitalization History blood clot in right leg 2005 [email or web address] Other Evaluation noteNo assessment information available [facility]* Diagnosis Onset Date Resolution Status Dysphagia acute Ulcerative esophagitis acute [facility] Work Phone: Evaluation note* Diagnosis Onset Date Resolution Status Ulcerative esophagitis acute [facility] Work Phone: Evaluation noteNo InformationNort [employer] Other Evaluation note* Diagnosis Onset Date Resolution Status Bleeding from varicose veins of left lower extremity acute [facility] Work Phone: Evaluation note* Diagnosis Onset Date Resolution Status Dysphagia acute GERD (gastroesophageal reflux disease) acute [facility] Work Phone: Evaluation note* Diagnosis Onset Date Resolution Status Dysphagia acute GERD (gastroesophageal reflux disease) acute Dysphagia acute GERD (gastroesophageal reflux disease) acute [facility] Work Phone: Evaluation note* Diagnosis Onset Date Resolution Status Dysphagia acute Dysphagia acute Chronic venous insufficiency of lower extremity acute GERD (gastroesophageal reflux disease) acute Medicare annual wellness visit, subsequent acute Scleroderma of esophagus acu te Screening mammogram for breast cancer acute [facility] Work Phone: Evaluation note* Diagnosis Presbylarynges- Primary Hoarse Dysphonia LPRD (laryngopharyngeal reflux disease) Acute laryngitis, without mention of obstruction [facility] Diagnosis Onset Date Resolution Status Dysphagia acute Dysphagia acute Chronic venous insufficiency of lower extremity acute GERD (gastroesophageal reflux disease) acute Medicare annual wellness visit, subsequent acute Right flank pain acute Scleroderma of esophagus acu te Screening mammogram for breast cancer acute Lumbar spondylosis noneactiv e [facility] Work Phone: Hospital Discharge instructions Additional Instructions [...] if you have any problems. -Office number [phone] Work Phone: Summary Purpose Family History Relationship [...] 6 week follow up; FF done at [facility] Reason for Visit Bleeding from varico se [...] of esophagus Screening mammogram for breast cancer Chief Complaint 6 month follow up fo r GERD R13.10 follow up/PPI medication back pain , discuss heart issues venaseal rt leg gsv Reason for Visit Dysphagia Dysphagia Chronic venous insufficiency of lower extremity GERD (gastroesophageal reflux disease) Medicare annual wellness visit, subsequent Right flank pain Scleroderma of esophagus Screening mammogram for breast cancer Lumbar spondylosis Chief Complaint 6 month follow up fo r GERD R13.10 follow up/PPI medication back pain , discuss heart issues venaseal rt leg gsv 4 WK S/P VENASEAL RIGHT LEG Reason for Visit Dysphagia Dysphagia Chronic venous insufficiency of lower extremity GERD (gastroesophageal reflux disease) Medicare annual wellness visit, subsequent Right flank pain Scleroderma of esophagus Screening mammogram for breast cancer Lumbar spondylosis Additional Source Comments INFORMATION SOURCE (unrecogn ized section and content) DATE CREATED AUTHOR 09/14/2018 [facility] DATE CREATED AUTHOR AUTHOR'S ORGANIZ ATION 09/10/2019 [facility] DATE CREATED AUTHOR AUTHOR'S ORGANIZ ATION 02/16/2023 [facility] DATE CREATED AUTHOR AUTHOR'S ORGANIZ ATION 06/08/2024 [facility] DATE CREATED AUTHOR AUTHOR'S ORGANIZ ATION 07/17/2024 [facility] EPIC Goals (unrecognized section and content) Goals may [...] Steve Armendariz DO Primary Care Provider Active Alex Newberry MD Attending Provider Active Team Status: Inactive Member Role Status Dates Steve Armendariz DO Primary Care Provider Active Chiara Damon NP-Katelyn Attending Provider Active Team Status: Inactive Member Role Status Dates Alex Newberry MD Attending Provider Active Start: October 25, [...] July 02, 2024 End: July 02, 2024 Sample Examiner Relationship Specialty Start Date End Date Steve Armendariz MD [address] [place] [address] PCP - General Internal Medicine 07/03/23 Sample Examiner Relationship Specialty Start Date End Date Steve Armendariz MD [address] [place] [address] PCP - General Internal Medicine 07/03/23 Team Status: Active Member Role Status Dates Steve Armendariz DO Primary Care Provide r, Attending Provider Active Start: July 11, 2024 Team Status: Inactive Member Role Status Dates Steve Armendariz DO Primary Care Provider Active Start: July 16, 2024 End: July 16, 2024 Angelic Slaughter MD Attending Provider Active Start: July 16, 2024 End: July 16, 2024 Team Status: Inactive Member Role Status Dates Steve Armendariz DO Primary Care Provider Active Start: August 13, 2024 End: August 13, 2024 Angelic Slaughter MD Attending Provider Active Start: August 13, 2024 End: August 13, 2024 REASON FOR VISIT (unrecogniz ed section and content) Reason Comments Hoarseness Patient here for 3 month follow up. No GI complaints on Omeprazole 40 [...] BE BASED ON THE PRIMARY CLINICAL RECORDS. [employer] provides no warranty or guarantee of the accuracy or completeness of information in this document.
[2024-09-16 13:05] LABS: Hemoglobin 12.9 g/dL (12.0-16.0)
--- NOTE | 2024-09-16 14:20 | RT_ITS ---
[facility] Test Date: 2024-09-16 Pat Name: BASHIR COATS Department: Room: - Gender: Female Inventory Worker: Rosmery Figueroa RRT : 1955 Requested By: 204 Order Number: [id number] Reading MD: Tay Clements Interpretive Statements Pulmonary function testing was completed according to ATS criteria. Findings were considered accurate and reproducible, with exception of DLCO which did not meet ATS standards. No bronchodilator was administered due to normal spirometric values. Spirometry: -FEV1/FVC: Normal @ 79% -FEV1: Normal @ 112% -FVC: Normal @ 108% Lung volumes by plethysmography: -RV: Normal @ 95% -TLC: Normal @ 112% Diffusion capacity: -DLCO: Normal @ 83% when corrected for Hb 12.9g/dL Comparison from 09/27/2023: -FEV1: 111% -T% -DLCO: 86% Impressions: -Essentially normal PFT. When compared to 09/27/2023, there is no significant change. Clinical correlation required. Electronically Signed On 09-16-2024 15:57:57 EST by Tay Clements
== END 2024-09-16 12:56 | disposition home or self-care (01) ==
LOC: CARD 12:55
PROVIDERS: PCP Internal Medicine; Visit Provider Internal Medicine Rheumatology
DX: R06.02 Shortness of breath (principal); J84.10 Pulmonary fibrosis, unspecified; I27.0 Primary pulmonary hypertension; R06.00 Dyspnea, unspecified; M35.9 Systemic involvement of connective tissue, unspecified
CPT/HCPCS: 36415; 85018; 94010; 94726; 94729

== ENCOUNTER 2024-09-23 12:58 | Outpatient (OUT) | payer OTHER, SELFPAY ==
--- NOTE | 2024-09-23 13:06 | CT_ITS ---
[address] [address] Patient Name: BASHIR COATS MRN: [id number] date: 1955 Sex: F Assigned Patient Location: CT Current Patient Location: Accession/Order Number: [id number] Exam Date: 09/23/2024 13:17 Report Date: 09/24/2024 05:46 At the request of: ANGELIC VICK Procedure: CT chest high res EXAMINATION: CT chest high res HISTORY: Interstitial Lung Disease, Pulmonary Hypertension COMPARISON: CT chest high-resolution 09/27/2023 TECHNIQUE: Axial images were obtained at 10 mm intervals during inspiration and expiration in the supine and prone positions. No IV contrast given. Dose reduction techniques were achieved by using automated exposure control and/or adjustment of mA and/or kV according to patient size and/or use of iterative reconstruction technique. FINDINGS: LUNGS: No visible pulmonary disease. PLEURA: No mass, effusion, or pneumothorax. CHE: No mass or adenopathy. MEDIASTINUM: No mass or adenopathy. HEART: No significant enlargement or pericardial effusion.. Coronary arteries: AORTA: No aneurysm.. CHEST WALL: No mass or axillary adenopathy LIMITED ABDOMEN: Fluid-filled chronically dilated esophagus throughout its length. Limited images of the upper abdomen. OTHER: Negative. CT/CT chest high res IMPRESSION: 1. No significant chronic interstitial changes. No suspicious nodules or acute infiltrates. 2. Dilated fluid-filled esophagus without appreciable wall thickening. Not significant changed. Electronically authenticated by: EULALIA MORALES Date: 09/24/2024 05:46
--- OUTSIDE RECORDS SUMMARY | 2024-09-23 13:25 | XMS_ITS | CCD ---
Author Organization [facility] Inform ion [facility] Care Team Providers Care Shirt Cleaner Name Role Phone SKIE, PAVEL Unavailable Unavailable SKIE, PAVEL Unavailable Unavailable PAVLOCK, MAX CHAZ Unavailable Unavailable SELF, REFERRED Unavailable Unavailable [place] Unavailable Unavailable SKIE, PAVEL Unavailable Unavailable ELGAFY, GARETH K Unavailable Unavailable ELGAFY, GARETH K Unavailable Unavailable PAVLOCK, MAX CHAZ Unavailable Unavailable PAVLOCK, MAX CHAZ Unavailable Unavailable Pedro Ruiz Attending Provider Steve Armendariz Primary Care Provider DO Steve Armendariz Primary Care Provider MD Alex Newberry Attending Provider DO Steve Armendariz Primary Care Provider MD Alex Newberry Attending Provider VASHTI Damon Attending Provider Steve [...] Care Provider VASHTI Damon Attending Provider Alex Newberry Unavailable [phone] DO Steve Armendariz Primary Care Provider MD Angelic Slaughter Attending Provider [phone] DO Steve Armendariz Primary Care Provider MD Miguel Sarah Attending Provider Angelic Slaughter Admitting UnavailAngelic Dodge Attending Unavailadri e Steve Armendariz [facility] Unavailable Miguel Sarah Admitting Unavailable Miguel Sarah Attending Unavailable Steve Armendariz Primary [facility] Unavailable Steve Armendariz MD Primary Care Provider BERTIN CORRAL Attending Unavailable BERTIN CORRAL Attending Unavailable BERTIN CORRAL Attending Unavailable BERTIN CORRAL Attending Unavailable BERTIN CORRAL Attending Unavailable BERTIN CORRAL Attending Unavailable BERTIN CORRAL Attending Unavailable SUJEY CAMARGO Attending Unavailable Allergies Allergy Classification Reported Allergen(s) Allergy Type Date of Onset Reaction(s) Facility Aminoglycosides (antibiotic) (1 source) Gentamicin Sulfate (FDC) Drug Allergy 01-31-20 [address] [facility] Dihydrofolate Reductase Inhibitors (antibiotic) (1 source) Trimethoprim Drug Allergy 01-31-[address] [facility] Penicillins (antibiotic) (1 source) Penicillins Drug Allergy 01-31-20 18 Swelling of Lip/Tongue/Th roat [facility] Sulfonamides (antibiotic) (1 source) Sulfamethoxazole Drug Allergy 01-31-[address] [facility] (20 sources) Gentamicin Sulfate (FDC); Translations: [GENTAMICIN] Drug Allergy 04-21-20 15 Unknown [facility] (12 sources) meloxicam Drug Allergy 07-31-20 18 Rash [facility] (14 sources) Penicillins Drug allergy (disorder) 06-07-20 10 Swelling of Lip/Tongue/Th roat [facility] (10 sources) Sulfonamides (Antibiotic) Drug allergy (disorder) 07-31-20 18 Unknown Reaction [facility] (19 sources) Sulfamethoxazole Drug Allergy 01-31-20 18 Unknown [facility] (12 sources) Trimethoprim Drug Allergy 01-31-20 18 Headache [facility] (7 sources) meloxicam Drug Allergy Unknown [facility] Other (7 sources) Sulfamethoxazole / Trimethoprim Drug Allergy Unknown [facility] Other (7 sources) Sulfonamides (Antibiotic) Propensity to adverse reactions Unknown [facility] Other (7 sources) Penicillian V Potassium Propensity to adverse reactions Unknown [facility] Other (15 sources) gentamycin Propensity to adverse reactions 10-25-19 24 Unknown, Unknown Reaction [facility] (1 source) meloxicam Drug Allergy [facility] (4 sources) Penicillin Drug Allergy Comment:lips swell up [facility] Other (12 sources) Penicillin V Drug Allergy 10-25-19 24 Unknown, Unknown Reaction [facility] (4 sources) Substance with sulfonamide structure and antibacterial mechanism of action (substance) Drug allergy 12-07-19 16 Unknown [facility] Other (1 source) Allergies Reconciled Propensity to adverse reactions Unknown [facility] Other (12 sources) Gentamicin in Saline Drug allergy 10-25-19 24 Comment:made eye bloody [facility] (1 source) patient allergy list reviewed by nurse or physicia Propensity to adverse reactions 12-07-19 16 Comment:Done [employer] Other (3 sources) meloxicam Drug Allergy 07-03-20 [...] Start: 01-30-2018 take 1 capsule by mo [facility] once daily Digestive Enzymes (Enzyme Digest) Capsule [...] by mouth. Active Garlic Active Grape Seed Ext-Bioflav,[place] (3 sources) Start: 01-30-2018 take 1 tablet by mouth once daily Grape Seed Ext-Bioflav,[place] Active 1 TAB PO Daily January 30, 2018 12:00am Grape Seed Extract (10 sources) GRAPE SEED EXTRA CT PO Take by mouth. Active take 2.5 tablets by mouth once d aily Grape Seed Extract 100 MG 2.5 tablets orally daily Active Grape Seed Extra ct Active Grape Seed Xt-Bioflav,[place] (10 sources) Start: 01-30-2018 Grape Seed Xt- Bioflav,[place] Active 1 TAB PO As Directed January 30, 2018 8:53am Start: 01-30-2018 take 1 tablet by gladis th once daily Grape Seed Xt-Bioflav,[place] Active 1 TAB PO Daily January 30, 2018 12:00am Start: 01-30-2018 take 1 tablet by gladis th once daily Grape Seed Xt-Bioflav,[place] Active 1 TAB PO Daily January 29, 2018 11:00pm Start: 01-30-2018 Grape Seed Xt- Bioflav,[place] Active 1 TAB PO As Directed January [...] dispersible Take by mouth. Active Melatonin Active Sandy Drummond Extract (20 sources) Start: 01-30-2018 Sandy Drummond Ext ract Active 1 TAB PO As Directed January 30, 2018 8:53am Start: 01-30-2018 take 1 tablet by mouth once da sarah Sandy Drummond Extract Active 1 TAB PO Daily January 30, 2018 12:00am Start: 01-30-2018 take 1 tablet by mouth once da sarah Sandy Drummond Extract Active 1 TAB PO Daily January 29, 2018 11:00pm Start: 01-30-2018 Sandy Drummond Ext ract Active 1 TAB PO As Directed January 29, 2018 11:00pm Sandy Drummond Extra ct 250 MG capsule Take by mouth. Active Sandy Drummond Extra ct Active [place] 5-Rhm-Neb-Fish Oil (Fi sh Oil) 1,000 mg (120 mg-180 mg) Capsule (13 sources) Start: 01-30-2018 [place] 3-Dha-Ep a-Fish Oil (Fish Oil) 1,000 mg (120 mg-180 mg) Capsule Active 1 TAB PO As Directed January 30, 2018 8:53am Start: 01-30-2018 End: 09-20-2022 [place] 6-Xcx-Rdx-Fish Oil (Fi sh Oil) 1,000 mg (120 mg-180 mg) Capsule Discontinued 1 TAB PO As Directed January 30, 2018 12:00am September 20, 2022 1:26pm Start: 01-30-2018 End: 09-20-2022 [place] 4-Huw-Fby-Fish Oil (Fi sh Oil) 1,000 mg (120 mg-180 mg) Capsule Discontinued 1 TAB PO As Directed January 29, 2018 11:00pm September 20, 2022 12:26pm Start: 01-30-2018 [place] 3-Dha-Ep a-Fish Oil (Fish Oil) 1,000 mg [...] unspecified] Episodic Other aftercare (1 source) 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; Translations: [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 THERAPY] Onset: 3 Episodic Other [...] and visceral atherosclerosis (10 sources) Atherosclerosis of [place] arteries of extremities with intermittent claudication, bilateral legs; Translations: [Atherosclerosis of [place] arteries of the extremities] Onset: 2 Chronic [...] from glycated hemoglobin (Bld) [Mass/Vol] 111 mg/dL [facility] - Chemistry and C hemistry - challengeon 07-11-2024 TSH Qn 2.496 m[IU]/L 0.358-3.740 [facility] - Hematology and Cell countson 07-11-2024 HbA1c (Bld) [Mass fraction] 5.5 % 4.5-6.2 [facility] Comment on above: ADA RECOMMENDED LIMI T 4.0 - 6.0ADA THERAPEUTIC TARGET < 7.0ACTION SUGGESTED> 7.0 No Panel Informationon 07-11 25-Hydroxy Vitamin D Total 74.0 ng/mL [facility] Comment on above: <20 ng/mL Vit D defi cient20-<30 ng/mL Vit D [id number] ng/mL Vit D sufficient>100 ng/mL Potential Toxicity Basophils Auto (Bld) [#/Vol] on 06-17-2024 Basophils (Bld) [#/Vol] 0.0 10 3/uL 0.0-0.1 [facility] Basophils/100 WBC Auto (Bld) on 06-17-2024 Basophils/100 WBC (Bld) 0.6 % 0.2-2.0 [facility] Eosinophils/100 WBC Auto (Bl d)on 06-17-2024 Eosinophils/100 WBC (Bld) 1.7 % 0.9-7.0 [facility] Erythrocyte distribution wid th Auto (RBC) [Ratio]on 06-17-2024 Erythrocyte distribution width (RBC) [Ratio] 13.8 % 11.0-15.0 [facility] Estimated glomerular filtrat ion rate (GFR) non- Americanon 06-17-2024 GFR/1.73 sq M.predicted among non-blacks MDRD (S/P/Bld) [Vol rate/Area] 60 mL/min/{1.73_m2} >=60 [facility] Globulin Calc (S) [Mass/Vol] on 06-17-2024 Globulin (S) [Mass/Vol] 3.1 g/dL [facility] Hematocrit Auto (Bld) [Volum e fraction]on 06-17-2024 Hematocrit (Bld) [Volume fraction] 39.9 % 36.0-48.0 [facility] Hemoglobin [Mass/volume] in Bloodon 06-17-2024 Hemoglobin (Bld) [Mass/Vol] 13.3 g/dL 12.0-16.0 [facility] - Chemistry and C hemistry - challengeon 06-17-2024 Albumin [Mass/Vol] 3.3 g/dL Low 3.4-5.0 [facility] ALP [Catalytic activity/Vol] 73 U/L 46-116 [facility] ALT [Catalytic activity/Vol] 24 U/L 14-59 [facility] AST [Catalytic activity/Vol] 19 U/L 15-37 [facility] Bilirubin [Mass/Vol] 0.4 mg/dL 0.2-1.0 [facility] Calcium [Mass/Vol] 9.2 mg/dL 8.5-10.1 [facility] Chloride [Moles/Vol] 107 mmol/L 98-107 [facility] CO2 [Moles/Vol] 28.8 mmol/L 21.0-32.0 [facility] Creatinine [Mass/Vol] 0.93 mg/dL 0.55-1.02 [facility] GFR/1.73 sq M.predicted MDRD (S/P/Bld) [Vol rate/Area] mL/min/{1.73_m2} >=60 [facility] Glucose [Mass/Vol] 97 mg/dL 74-106 [facility] Potassium [Moles/Vol] 3.9 mmol/L 3.5-5.1 [facility] Protein [Mass/Vol] 6.4 g/dL 6.4-8.2 [facility] Sodium [Moles/Vol] 144 mmol/L 136-145 [facility] Urea nitrogen [Mass/Vol] 22.0 mg/dL High 7.0-18.0 [facility] Urea nitrogen/Creatinine [Mass ratio] 23.7 mg/mg [facility] Bilirubin Ql (U) Negative NEGATIVE [facility] Glucose (U) [Mass/Vol] Negative NEGATIVE [facility] Ketones Ql (U) Negative NEGATIVE [facility] pH (U) 5.5 [pH] 5.0-9.0 [facility] Specific gravity (U) [Rel density] <=1.005 Abnormal 1.005-1.025 [facility] Urobilinogen Qn (U) 0.2 {Lora'U}/dL 0.2-1.0 [facility] - Hematology and Cell countson 06-17-2024 ESR (Bld) [Velocity] 27 mm/h <=30 [facility] Immature granulocytes/100 WBC (Bld) 0.1 % 0.0-0.5 [facility] - Specimen inform ationon 06-17-2024 Appearance (U) CLEAR CLEAR [facility] Color (U) LT. YELLOW YELLOW [facility] - Urinalysison Leukocyte esterase Test strip Ql (U) SMALL Abnormal NEGATIVE [facility] Mucus Ql (Urine sed) NONE SEEN NONE SEEN [facility] Nitrite Ql (U) Negative NEGATIVE [facility] Protein Ql (U) Negative NEG/TRACE [facility] Leukocytes [#/volume] correc pan for nucleated erythrocytes in Blood by Automated counon 06-17-2024 WBC corrected for nucl RBC Auto (Bld) [#/Vol] 7.0 10 3/uL 4.0-11.0 [facility] Lymphocytes Auto (Bld) [#/Vo l]on 06-17-2024 Lymphocytes (Bld) [#/Vol] 2.7 10 3/uL 1.2-3.8 [facility] Lymphocytes/100 WBC Auto (Bl d)on 06-17-2024 Lymphocytes/100 WBC (Bld) 38.7 % 20.5-60.0 [facility] MCH Auto (RBC) [Entitic mass ]on 06-17-2024 MCH (RBC) [Entitic mass] 30.2 pg 26.7-34.0 [facility] MCHC Auto (RBC) [Mass/Vol]on 06-17-2024 MCHC (RBC) [Mass/Vol] 33.3 g/dL 29.9-35.2 [facility] MCV Auto (RBC) [Entitic vol] on 06-17-2024 MCV (RBC) [Entitic vol] 90.5 fL 81.0-99.0 [facility] Monocytes Auto (Bld) [#/Vol] on 06-17-2024 Monocytes (Bld) [#/Vol] 0.5 10 3/uL 0.3-0.8 [facility] Monocytes/100 WBC Auto (Bld) on 06-17-2024 Monocytes/100 WBC (Bld) 7.2 % 1.7-12.0 [facility] Neutrophils Auto (Bld) [#/Vo l]on 06-17-2024 Neutrophils (Bld) [#/Vol] 3.6 10 3/uL 1.4-6.5 [facility] Neutrophils/100 WBC Auto (Bl d)on 06-17-2024 Neutrophils/100 WBC (Bld) 51.7 % 43.0-75.0 [facility] No Panel Informationon 06-17 Eosinophils # (Auto) 0.1 10 3/uL 0.0-0.7 [facility] Immature Granulocyte # (Auto) 0.01 10 3/uL 0.00-0.03 [facility] Total Complement (CH50) 55 U/mL >41 [facility] Comment on above: Age Male Female [...] to determine out of range values.Performed at: [place] [facility] [id number] Director: Savage Vaughan PhD, Phone: [phone] Urine Bacteria TRACE #/HPF Abnormal NONE SEEN [facility] Urine Occult Blood TRACE-I NEGATIVE [facility] Urine RBC 0-2 #/HPF 0-2 [facility] Urine Squamous Epithelial Cells FEW #/LPF Abnormal NONE/RARE [facility] Urine WBC 2-5 #/HPF Abnormal NONE SEEN [facility] Platelet mean volume Auto (B ld) [Entitic vol]on 06-17-2024 Platelet mean volume (Bld) [Entitic vol] 8.8 fL Low 9.5-13.5 [facility] Platelets Auto (Bld) [#/Vol] on 06-17-2024 Platelets (Bld) [#/Vol] 177 10 3/uL 150-450 [facility] RBC Auto (Bld) [#/Vol]on RBC (Bld) [#/Vol] 4.41 10 6/uL 4.20-5.40 [facility] Serum or plasma albumin/glob ulin mass ratioon 06-17-2024 Albumin/Globulin [Mass ratio] 1.1 {ratio} [facility] Serum or plasma anion gap de terminationon 06-17-2024 Anion gap [Moles/Vol] 12.1 mmol/L [facility] Serum or plasma complement C 3 measurement (mass/volume)on 06-17-2024 Complement C3 [Mass/Vol] 125 mg/dL 82-167 [facility] Serum or plasma complement C 4 measurement (mass/volume)on 06-17-2024 Complement C4 [Mass/Vol] 20 mg/dL 12-38 [facility] Comment on above: Performed at: [address] Director: Savage Vaughan PhD, Phone: [phone] US venous duplex LE BIon US venous duplex LE [facility] [place] [address] Ultrasound Report Signed Patient: Bashir Coats MR#: [id number] : 1955 Acct:[id number] Age/Sex: 68 / F ADM Date: 01/14/24 Loc: Room: Type: [facility] Attending Dr: Angelic Slaughter MD Ordering Provider: [...] Bucky Reynaga M.D.01/15/2024 12:26 PM Dictation Location: [id number] Tech: Lizeth Dixon Transcribed By: COLTON 01/15/24 1226 Dictated By: Bucky Reynaga MD 01/15/24 1224 Signed By: 01/15/24 1226 Normal [facility] Automated epithelial cells c ount in urine sediment (number/area)on 12-25-2023 Epithelial cells Auto (Urine sed) [#/Area] FEW #/LPF NONE/RARE [facility] Automated leukocytes count i n urine sediment (number/area)on 12-25-2023 WBC Auto (Urine sed) [#/Area] 5-10 #/HPF 0-2 [facility] Automated urine specific gra vity by refractometryon 12-25-2023 Specific gravity Refractometry automated (U) [Rel density] 1.010 1.005-1.025 [facility] Basophils Auto (Bld) [#/Vol] on 12-25-2023 Basophils (Bld) [#/Vol] 0.1 10 3/uL 0.0-0.1 [facility] Basophils/100 WBC Auto (Bld) on 12-25-2023 Basophils/100 WBC (Bld) 0.8 % 0.2-2.0 [facility] Bilirubin Auto test strip (U ) [Mass/Vol]on 12-25-2023 Bilirubin (U) [Mass/Vol] Negative NEGATIVE [facility] Casts typing in urine sedime nt by light microscopyon 12-25-2023 Casts LM Nom (Urine sed) NONE SEEN #/LPF NONE SEEN [facility] Color Auto (U)on 12-25-2023 Color (U) LT. YELLOW YELLOW [facility] Eosinophils/100 WBC Auto (Bl d)on 12-25-2023 Eosinophils/100 WBC (Bld) 1.4 % 0.9-7.0 [facility] Erythrocyte distribution wid th Auto (RBC) [Ratio]on 12-25-2023 Erythrocyte distribution width (RBC) [Ratio] 13.8 % 11.0-15.0 [facility] Estimated glomerular filtrat ion rate (GFR) non- Americanon 12-25-2023 GFR/1.73 sq M.predicted among non-blacks MDRD (S/P/Bld) [Vol rate/Area] mL/min/{1.73_m2} >=60 [facility] Globulin Calc (S) [Mass/Vol] on 12-25-2023 Globulin (S) [Mass/Vol] 3.5 g/dL [facility] Hematocrit Auto (Bld) [Volum e fraction]on 12-25-2023 Hematocrit (Bld) [Volume fraction] 39.7 % 36.0-48.0 [facility] Hemoglobin [Mass/volume] in Bloodon 12-25-2023 Hemoglobin (Bld) [Mass/Vol] 12.6 g/dL 12.0-16.0 [facility] Ketones Auto test strip (U) [Mass/Vol]on 12-25-2023 Ketones (U) [Mass/Vol] Negative NEGATIVE [facility] Laboratory - Chemistry and C hemistry - challengeon 12-25-2023 Albumin [Mass/Vol] 3.3 g/dL 3.4-5.0 [facility] ALP [Catalytic activity/Vol] 74 U/L 46-116 [facility] ALT [Catalytic activity/Vol] 27 U/L 14-59 [facility] AST [Catalytic activity/Vol] 17 U/L 15-37 [facility] Bilirubin [Mass/Vol] 0.3 mg/dL 0.2-1.0 [facility] Calcium [Mass/Vol] 9.0 mg/dL 8.5-10.1 [facility] Chloride [Moles/Vol] 104 mmol/L 98-107 [facility] CO2 [Moles/Vol] 29.7 mmol/L 21.0-32.0 [facility] Creatinine [Mass/Vol] 0.91 mg/dL 0.55-1.02 [facility] GFR/1.73 sq M.predicted MDRD (S/P/Bld) [Vol rate/Area] mL/min/{1.73_m2} >=60 [facility] Glucose [Mass/Vol] 94 mg/dL 74-106 [facility] Potassium [Moles/Vol] 3.7 mmol/L 3.5-5.1 [facility] Protein [Mass/Vol] 6.8 g/dL 6.4-8.2 [facility] Sodium [Moles/Vol] 143 mmol/L 136-145 [facility] Urea nitrogen [Mass/Vol] 18.0 mg/dL 7.0-18.0 [facility] Urea nitrogen/Creatinine [Mass ratio] 19.8 mg/mg [facility] Laboratory - Hematology and Cell countson 12-25-2023 ESR (Bld) [Velocity] 29 mm/h <=30 [facility] Immature granulocytes/100 WBC (Bld) 0.3 % 0.0-0.5 [facility] Leukocytes [#/volume] correc pan for nucleated erythrocytes in Blood by Automated counon 12-25-2023 WBC corrected for nucl RBC Auto (Bld) [#/Vol] 8.0 10 3/uL 4.0-11.0 [facility] Lymphocytes Auto (Bld) [#/Vo l]on 12-25-2023 Lymphocytes (Bld) [#/Vol] 2.6 10 3/uL 1.2-3.8 [facility] Lymphocytes/100 WBC Auto (Bl d)on 12-25-2023 Lymphocytes/100 WBC (Bld) 32.4 % 20.5-60.0 [facility] MCH Auto (RBC) [Entitic mass ]on 12-25-2023 MCH (RBC) [Entitic mass] 29.3 pg 26.7-34.0 [facility] MCHC Auto (RBC) [Mass/Vol]on 12-25-2023 MCHC (RBC) [Mass/Vol] 31.7 g/dL 29.9-35.2 [facility] MCV Auto (RBC) [Entitic vol] on 12-25-2023 MCV (RBC) [Entitic vol] 92.3 fL 81.0-99.0 [facility] Monocytes Auto (Bld) [#/Vol] on 12-25-2023 Monocytes (Bld) [#/Vol] 0.6 10 3/uL 0.3-0.8 [facility] Monocytes/100 WBC Auto (Bld) on 12-25-2023 Monocytes/100 WBC (Bld) 7.0 % 1.7-12.0 [facility] Mucus LM Ql (Urine sed)on Mucus Ql (Urine sed) TRACE NONE SEEN [facility] Neutrophils Auto (Bld) [#/Vo l]on 12-25-2023 Neutrophils (Bld) [#/Vol] 4.6 10 3/uL 1.4-6.5 [facility] Neutrophils/100 WBC Auto (Bl d)on 12-25-2023 Neutrophils/100 WBC (Bld) 58.1 % 43.0-75.0 [facility] No Panel Informationon 12-24 Eosinophils # (Auto) 0.1 10 3/uL 0.0-0.7 [facility] Immature Granulocyte # (Auto) 0.02 10 3/uL 0.00-0.03 [facility] Total Complement (CH50) 57 U/mL >41 [facility] Comment on above: Age Male Female [...] to determine out of range values.Performed at: [facility] [address] [id number] Director: Savage Vaughan PhD, Phone: [phone] Platelet mean volume Auto (B ld) [Entitic vol]on 12-25-2023 Platelet mean volume (Bld) [Entitic vol] 8.9 fL 9.5-13.5 [facility] Platelets Auto (Bld) [#/Vol] on 12-25-2023 Platelets (Bld) [#/Vol] 201 10 3/uL 150-450 [facility] Protein Auto test strip (U) [Mass/Vol]on 12-25-2023 Protein (U) [Mass/Vol] Negative NEG/TRACE [facility] RBC Auto (Bld) [#/Vol]on RBC (Bld) [#/Vol] 4.30 10 6/uL 4.20-5.40 [facility] Serum or plasma albumin/glob ulin mass ratioon 12-25-2023 Albumin/Globulin [Mass ratio] 0.9 {ratio} [facility] Serum or plasma anion gap de terminationon 12-25-2023 Anion gap [Moles/Vol] 13.0 mmol/L [facility] Serum or plasma complement C 3 measurement (mass/volume)on 12-25-2023 Complement C3 [Mass/Vol] 121 mg/dL 82-167 [facility] Serum or plasma complement C 4 measurement (mass/volume)on 12-25-2023 Complement C4 [Mass/Vol] 20 mg/dL [facility] Comment on above: Performed at: [address] [id number] Director: Savage Vaughan PhD, Phone: [phone] Specific gravity Auto test s trip (U) [Rel density]on 12-25-2023 Specific gravity (U) [Rel density] CLEAR CLEAR [facility] Urine bacteria detection by automated methodon 12-25-2023 Bacteria Auto Ql (U) TRACE #/HPF NONE SEEN [facility] Urine glucose measurement by test strip (mass/volume)on 12-25-2023 Glucose Test strip (U) [Mass/Vol] Negative NEGATIVE [facility] Urine hemoglobin detection b y automated test stripon 12-25-2023 Hemoglobin Auto test strip Ql (U) MODERATE NEGATIVE [facility] Urine nitrite detection by a utomated test stripon 12-25-2023 Nitrite Auto test strip Ql (U) SMALL NEGATIVE [facility] Nitrite Auto test strip Ql (U) Negative NEGATIVE [facility] Urine sediment crystal ident ification by light microscopyon 12-25-2023 Crystals LM Nom (Urine sed) None Seen #/HPF None Seen [facility] Urine sediment leukocyte cou nt by microscopy (number/high power field)on 12-25-2023 WBC LM.HPF (Urine sed) [#/Area] 5-10 #/HPF NONE SEEN [facility] Urobilinogen Auto test strip (U) [Mass/Vol]on 12-25-2023 Urobilinogen Qn (U) 0.2 {Lora'U}/dL 0.2-1.0 [facility] pH Auto test strip (U)on pH (U) 5.5 [pH] 5.0-9.0 [facility] XR ankle LT min 3V*on 2022 XR ankle LT min 3V* [facility] [employer] Other XR ankle LT min 3V* [facility] [employer] Other XR ankle LT min 3V* [address] [facility] [employer] Other XR ankle LT min 3V* FABIAN Cl[place] [id number] [employer] Other XR ankle LT min 3V* XRay Report [place] [employer] Other XR ankle LT min 3V* Signed [employer] Other XR ankle LT min 3V* Patient: Bashir Coats MR#: [id number] [employer] Other XR ankle LT min 3V* : 1955 Acct:[id number] [employer] Other XR ankle LT min 3V* Age/Sex: 68 / F ADM Date: 06/07/23 [employer] Other XR ankle LT min 3V* Loc: XDUCLY Room: Type: REG CLI [employer] Other XR ankle LT min 3V* Attending Dr: Chiara KINGSTON [employer] Other XR ankle LT min 3V* Copies to: VASHTI Carter [employer] Other XR ankle LT min 3V* Ordering Provider: VASHTI Carter [employer] Other XR ankle LT min 3V* Date of Service: 06/07/23 [employer] Other XR ankle LT min 3V* XR/XR ankle LT min 3V*: LEFT ANKLE PAIN [employer] Other XR ankle LT min 3V* LEFT ANKLE - 3 views [employer] Other XR ankle LT min 3V* CLINICAL HISTORY: Left medial ankle pain with swelling and tingling and burning for one month. No [employer] Other XR ankle LT min 3V* known trauma. No rt [employer] Other XR ankle LT min 3V* COMPARISON: None [employer] Other XR ankle LT min 3V* FINDINGS: [employer] Other XR ankle LT min 3V* Soft tissue swelling is noted. Ankle mortise appears intact with mild degenerative change. No acute [employer] Other XR ankle LT min 3V* bony process. Pl[place] r spurring. [employer] Other XR ankle LT min 3V* XR/XR ankle LT min 3V* [employer] Other XR ankle LT min 3V* IMPRESSION: [employer] Other XR ankle LT min 3V* SOFT TISSUE SWELLING WITHOUT ACUTE BONY PROCESS. DEGENERATIVE CHANGE. [employer] Other XR ankle LT min 3V* Impression dictated by: Tanner Jarquin Jr., D.O.06/07/2023 1:28 PM [employer] Other XR ankle LT min 3V* Dictation Location: [place] [address] [employer] Other XR ankle LT min 3V* Transcribed By: PWS 06/07/23 1328 [employer] Other XR ankle LT min 3V* Dictated By: Tanner Jarquin Jr, DO 06/07/23 1327 [employer] Other XR ankle LT min 3V* Signed By: [employer] Other XR ankle LT min 3V* 06/07/23 1328 No rt [employer] Other C3 and C4 COMPLEMENTon 02-10 Complement C3, Serum 141 mg/dL Normal 82-167 [facility] Comment on above: Performed By: #### C SUITE #### [facility] [address] [address] [address] Eboni Smith Complement C4, Serum 24 mg/dL Normal 12-38 [facility] Comment on above: Performed By: #### C SUITE #### [facility] [address] [place] [address] Dr. Eboni Smith COMPLEMENT TOTAL (CH50)on Complement, Total (CH50) >60 Normal >41 [facility] Comment on above: Result Comment: Age [...] Performed By: #### C H50T #### [facility] [address] [place] [address] Dr. Eboni Smith CBC AUTO DIFFon 02-08-2023 BASO # 0.0 103/ul Normal 0.0-0.1 [facility] Comment on above: Performed By: #### C BC #### [facility] [address] [place] [address] Dr. Eboni Smith Basophils/100 WBC (Bld) 0.4 % Normal 0.2-2.0 [facility] Comment on above: Performed By: #### C BC #### [facility] [address] [place] [address] Dr. Eboni Smith EO # 0.2 103/ul Normal 0.0-0.7 [facility] Comment on above: Performed By: #### C BC #### [facility] [address] [place] [address] Dr. Eboni Smith Eosinophils/100 WBC (Bld) 1.6 % Normal 0.9-7.0 [facility] Comment on above: Performed By: #### C BC #### [facility] [address] [place] [address] Dr. Eboni Smith Erythrocyte distribution width (RBC) [Ratio] 14.6 % Normal 11.0-15.0 [facility] Comment on above: Performed By: #### C BC #### [facility] [address] [address] [address] Eboni Smith Hematocrit (Bld) [Volume fraction] 40.2 % Normal 36.0-48.0 [facility] Comment on above: Performed By: #### C BC #### [facility] [address] [address] [address] Eboni Smith Hemoglobin (Bld) [Mass/Vol] 12.7 g/dL Normal 12.0-16.0 [facility] Comment on above: Performed By: #### C BC #### [facility] [address] [place] [address] Dr. Eboni Smith IG # 0.06 10e3/ul Critically high 0.00-0.03 [facility] Comment on above: Performed By: #### C BC #### [facility] [address] [place] [address] Dr. Eboni Smith IG % 0.6 % Critically high 0.0-0.5 [facility] Comment on above: Performed By: #### C BC #### [facility] [address] [place] [address] Dr. Eboni Smith LYMPH # 3.4 103/ul Normal 1.2-3.8 [facility] Comment on above: Performed By: #### C BC #### [facility] [address] [place] [address] Dr. Eboni Smith Lymphocytes/100 WBC (Bld) 36.6 % Normal 20.5-60.0 [facility] Comment on above: Performed By: #### C BC #### [facility] [address] [place] [address] Dr. Eboni Smith MANUAL DIFF REQ NO Normal [facility] Comment on above: Performed By: #### C BC #### [facility] [address] [place] [address] Dr. Eboni Smith MCH (RBC) [Entitic mass] 28.6 pg Normal 26.7-34.0 [facility] Comment on above: Performed By: #### C BC #### [facility] [address] [address] [address] Eboni Smith MCHC (RBC) [Mass/Vol] 31.6 g/dL Normal 29.9-35.2 [facility] Comment on above: Performed By: #### C BC #### [facility] [address] [address] [address] Eboni Smith MCV (RBC) [Entitic vol] 90.5 fL Normal 81.0-99.0 [facility] Comment on above: Performed By: #### C BC #### [facility] [address] [place] [address] Dr. Eboni Smith MONO # 0.8 103/ul Normal 0.3-0.8 [facility] Comment on above: Performed By: #### C BC #### [facility] [address] [place] [address] Dr. Eboni Smith Monocytes/100 WBC (Bld) 8.2 % Normal 1.7-12.0 [facility] Comment on above: Performed By: #### C BC #### [facility] [address] [place] [address] Dr. Eboni Smith NEUT # 4.9 103/ul Normal 1.4-6.5 [facility] Comment on above: Performed By: #### C BC #### [facility] [address] [place] [address] Dr. Eboni Smith Neutrophils/100 WBC (Bld) 52.6 % Normal 43.0-75.0 [facility] Comment on above: Performed By: #### C BC #### [facility] [address] [place] [address] Dr. Eboni Smith Platelet mean volume (Bld) [Entitic vol] 8.5 fL Critically low 9.5-13.5 [facility] Comment on above: Performed By: #### C BC #### [facility] [address] [place] [address] Dr. Eboni Smith PLT 272 103/ul Normal 150-450 [facility] Comment on above: Performed By: #### C BC #### [facility] [address] [place] [address] Dr. Eboni Smith RBC 4.44 106/ul Normal 4.20-5.40 [facility] Comment on above: Performed By: #### C BC #### [facility] [address] [place] [address] Dr. Eboni Smith WBC 9.4 103/ul Normal 4.0-11.0 [facility] Comment on above: Performed By: #### C BC #### [facility] [address] [place] [address] Dr. Eboni Smith PROF 14(COMP METB)on 023 Albumin [Mass/Vol] 3.2 g/dL Critically low 3.4-5.0 [facility] Comment on above: Performed By: #### C MP #### [facility] [address] [place] [address] Dr. Eboni Smith Albumin/Globulin [Mass ratio] 0.9 {ratio} Normal [facility] Comment on above: Performed By: #### C MP #### [facility] [address] [place] [address] Dr. Eboni Smith ALP [Catalytic activity/Vol] 85 U/L Normal 46-116 [facility] Comment on above: Performed By: #### C MP #### [facility] [address] [place] [address] Dr. Eboni Smith ALT [Catalytic activity/Vol] 22 U/L Normal 14-59 [facility] Comment on above: Performed By: #### C MP #### [facility] [address] [place] [address] Dr. Eboni Smith Anion gap [Moles/Vol] 10.8 mmol/L Normal [facility] Comment on above: Performed By: #### C MP #### [facility] [address] [place] [address] Dr. Eboni Smith AST [Catalytic activity/Vol] 16 U/L Normal 15-37 [facility] Comment on above: Performed By: #### C MP #### [facility] [address] [place] [address] Dr. Eboni Smith Bilirubin [Mass/Vol] 0.2 mg/dL Normal 0.2-1.0 [facility] Comment on above: Performed By: #### C MP #### [facility] [address] [address] [address] Eboni Smith Calcium [Mass/Vol] 8.9 mg/dL Normal 8.5-10.1 [facility] Comment on above: Performed By: #### C MP #### [facility] [address] [address] [address] Eboni Smith Chloride [Moles/Vol] 106 mmol/L Normal 98-107 [facility] Comment on above: Performed By: #### C MP #### [facility] [address] [address] [address] Eboni Smith CO2 [Moles/Vol] 28.2 mmol/L Normal 21.0-32.0 [facility] Comment on above: Performed By: #### C MP #### [facility] [address] [address] [address] Eboni Smith Creatinine [Mass/Vol] 0.87 mg/dL Normal 0.55-1.02 [facility] Comment on above: Performed By: #### C MP #### [facility] [address] [address] [address] Eboni Smith EGFR-AF CROATIAN >60 Normal >=60 [facility] Comment on above: Performed By: #### C MP #### [facility] [address] [address] [address] Eboni Smith EGFR-NON AF CROATIAN >60 Normal >=60 [facility] Comment on above: Performed By: #### C MP #### [facility] [address] [address] [address] Eboni Smith Globulin (S) [Mass/Vol] 3.5 g/dL Normal [facility] Comment on above: Performed By: #### C MP #### [facility] [address] [address] [address] Eboni Smith Glucose [Mass/Vol] 93 mg/dL Normal 74-106 [facility] Comment on above: Performed By: #### C MP #### [facility] [address] [address] [address] bEoni Smith Potassium [Moles/Vol] 4.0 mmol/L Normal 3.5-5.1 [facility] Comment on above: Performed By: #### C MP #### [facility] [address] [address] [address] Eboni Smith Protein [Mass/Vol] 6.7 g/dL Normal 6.4-8.2 [facility] Comment on above: Performed By: #### C MP #### [facility] [address] [address] [address] Eboni Smith Sodium [Moles/Vol] 141 mmol/L Normal 136-145 [facility] Comment on above: Performed By: #### C MP #### [facility] [address] [address] [address] Eboni Smith Urea nitrogen [Mass/Vol] 18.0 mg/dL Normal 7.0-18.0 [facility] Comment on above: Performed By: #### C MP #### [facility] [address] [address] [address] Eboni Smith Urea nitrogen/Creatinine [Mass ratio] 20.7 mg/mg Normal [facility] Comment on above: Performed By: #### C MP #### [facility] [address] [address] [address] Eboni Smith [facility] SED RATE 22 mm/hr Normal <=30 [facility] Comment on above: Performed By: #### C SUITE #### [facility] [address] [address] [address] Eboni Smith UA RANDOM W/MICROSCOPICon BACTERIA TRACE Abnormal NONE SEEN [facility] Comment on above: Performed By: #### C BC #### [facility] [address] [address] [address] Eobni Smith Bilirubin Ql (U) Negative Normal NEGATIVE [facility] Comment on above: Performed By: #### C BC #### [facility] [address] [place] [address] Dr. Eboni Smith CAST NONE SEEN Normal NONE SEEN [facility] Comment on above: Performed By: #### C BC #### [facility] [address] [place] [address] Dr. Eboni Smith Clarity (U) SL CLOUDY Abnormal CLEAR [facility] Comment on above: Performed By: #### C BC #### [facility] [address] [place] [address] Dr. Eboni Smith Color (U) LT. YELLOW Normal YELLOW [facility] Comment on above: Performed By: #### C BC #### [facility] [address] [place] [address] Dr. Eboni Smith Crystals LM Nom (Urine sed) NONE SEEN Normal NONE SEEN [facility] Comment on above: Performed By: #### C BC #### [facility] [address] [place] [address] Dr. Eboni Smith Epithelial cells LM Ql (Urine sed) FEW Abnormal NONE SEEN /RARE [facility] Comment on above: Performed By: #### C BC #### [facility] [address] [place] [address] Dr. Eboni Smith Glucose Ql (U) Negative Normal NEGATIVE [facility] Comment on above: Performed By: #### C BC #### [facility] [address] [place] [address] Dr. Eboni Smith Hemoglobin Ql (U) TRACE-INTACT Abnormal NEGATIVE [facility] Comment on above: Performed By: #### C BC #### [facility] [address] [place] [address] Dr. Eboni Smith Ketones Ql (U) Negative Normal NEGATIVE [facility] Comment on above: Performed By: #### C BC #### [facility] [address] [place] [address] Dr. Eboni Smith LEUKOCYTES SMALL Abnormal NEGATIVE [facility] Comment on above: Performed By: #### C BC #### [facility] [address] [place] [address] Dr. Eboni Smith MUCOUS NONE SEEN Normal NONE SEEN [facility] Comment on above: Performed By: #### C BC #### [facility] [address] [place] [address] Dr. Eboni Smith Nitrite Ql (U) Negative Normal NEGATIVE [facility] Comment on above: Performed By: #### C BC #### [facility] [address] [place] [address] Dr. Eboni Smith pH (U) 5.5 [pH] Normal 5-9 [facility] Comment on above: Performed By: #### C BC #### [facility] [address] [place] [address] Dr. Eboni Smith RBC 0-2 Normal 0-2 [facility] Comment on above: Performed By: #### C BC #### [facility] [address] [place] [address] Dr. Eboni Smith SPEC GRAVITY 1.005 Normal 1.005-<=1.02 5 [facility] Comment on above: Performed By: #### C BC #### [facility] [address] [place] [address] Dr. Eboni Smith UA PROTEIN Negative Normal NEGATIVE/ TRACE [facility] Comment on above: Performed By: #### C BC #### [facility] [address] [place] [address] Dr. Eboni Smith Urobilinogen Qn (U) 0.2 {Lora'U}/dL Normal 0.2 - 1. 0 [facility] Comment on above: Performed By: #### C BC #### [facility] [address] [place] [address] Dr. Eboni Smith WBC 2-5 Abnormal NONE SEEN [facility] Comment on above: Performed By: #### C BC #### [facility] [address] [place] [address] Dr. Eboni Smith XR shoulder RT min 2V*on XR shoulder RT min 2V* [facility] [employer] Other XR shoulder RT min 2V* [facility] [employer] Other XR shoulder RT min 2V* Joy [place] [employer] Other XR shoulder RT min 2V* [place] [address] [employer] Other XR shoulder RT min 2V* XRay Report [employer] Other XR shoulder RT min 2V* Signed [employer] Other XR shoulder RT min 2V* Patient: Bashir Coats MR#: [id number] [employer] Other XR shoulder RT min 2V* : 1955 Acct:[id number] [employer] Other XR shoulder RT min 2V* Age/Sex: 67 / F ADM Date: 12/16/22 [employer] Other XR shoulder RT min 2V* Loc: [facility] Room: Type: REG CLI [employer] Other XR shoulder RT min 2V* Attending Dr: Chiara KINGSTON [employer] Other XR shoulder RT min 2V* Copies to: VASHTI Carter [employer] Other XR shoulder RT min 2V* Ordering Provider: VASHTI Carter [employer] Other XR shoulder RT min 2V* Date of Service: 12/16/22 [employer] Other XR shoulder RT min 2V* XR/XR elbow RT min 3V*: Right elbow pain;Acute pain of right shoulder [employer] Other XR shoulder RT min 2V* ([id number]) XR/XR shoulder RT min 2V*: Right elbow pain;Acute pain of right shoulder [employer] Other XR shoulder RT min 2V* RIGHT ELBOW - 4 views [employer] Other XR shoulder RT min 2V* CLINICAL HISTORY: Right elbow and shoulder pain status post fall 2 days ago. [employer] Other XR shoulder RT min 2V* COMPARISON: None [employer] Other XR shoulder RT min 2V* FINDINGS: [employer] Other XR shoulder RT min 2V* Right shoulder: Mild degenerative changes of the AC and glenohumeral joints without acute bony [employer] Other XR shoulder RT min 2V* process. [employer] Other XR shoulder RT min 2V* Right elbow: Soft tissue swelling. No elbow joint effusion. No acute bony process. Mild spurring [employer] Other XR shoulder RT min 2V* along the epicondyles. [employer] Other XR shoulder RT min 2V* XR/XR elbow RT min 3V* [employer] Other XR shoulder RT min 2V* IMPRESSION: [employer] Other XR shoulder RT min 2V* NO ACUTE BONY PROCESS. [employer] Other XR shoulder RT min 2V* Impression dictated by: Tanner Jarquin Jr., D.OCasey12/16/2022 2:46 PM [employer] Other XR shoulder RT min 2V* Dictation Location: [place] [address] [employer] Other XR shoulder RT min 2V* Transcribed By: COLTON 12/16/22 [facility] [employer] Other XR shoulder RT min 2V* Dictated By: Tanner Jarquin Jr, DO 12/16/22 [facility] [employer] Other XR shoulder RT min 2V* Signed By: [employer] Other XR shoulder RT min 2V* 12/16/22 3149 [employer] Other C3 and C4 COMPLEMENTon 09-29 Complement C3, Serum 118 mg/dL Normal 82-167 [facility] Comment on above: Performed By: #### C BC #### [facility] [address] [place] [address] Dr. Eboni Smith Complement C4, Serum 25 mg/dL Normal 12-38 [facility] Comment on above: Performed By: #### C BC #### [facility] [address] [place] [address] Dr. Eboni Smith COMPLEMENT TOTAL (CH50)on Complement, Total (CH50) >60 Normal >41 [facility] Comment on above: Result Comment: Age [...] Performed By: #### C SUITE #### [facility] [address] [place] [address] Dr. Eboni Smith CBC AUTO DIFFon 09-28-2022 BASO # 0.0 103/ul Normal 0.0-0.1 [facility] Comment on above: Performed By: #### C BC #### [facility] [address] [place] [address] Dr. Eboni Smith Basophils/100 WBC (Bld) 0.6 % Normal 0.2-2.0 [facility] Comment on above: Performed By: #### C BC #### [facility] [address] [place] [address] Dr. Eboni Smith EO # 0.2 103/ul Normal 0.0-0.7 [facility] Comment on above: Performed By: #### C BC #### [facility] [address] [place] [address] Dr. Eboni Smith Eosinophils/100 WBC (Bld) 2.3 % Normal 0.9-7.0 [facility] Comment on above: Performed By: #### C BC #### [facility] [address] [place] [address] Dr. Eboni Smith Erythrocyte distribution width (RBC) [Ratio] 13.8 % Normal 11.0-15.0 [facility] Comment on above: Performed By: #### C BC #### [facility] [address] [place] [address] Dr. Eboni Smith Hematocrit (Bld) [Volume fraction] 39.7 % Normal 36.0-48.0 [facility] Comment on above: Performed By: #### C BC #### [facility] [address] [place] [address] Dr. Eboni Smith Hemoglobin (Bld) [Mass/Vol] 12.7 g/dL Normal 12.0-16.0 [facility] Comment on above: Performed By: #### C BC #### [facility] [address] [place] [address] Dr. Eboni Smith IG # 0.02 10e3/ul Normal 0.00-0.03 [facility] Comment on above: Performed By: #### C BC #### [facility] [address] [place] [address] Dr. Eboni Smith IG % 0.3 % Normal 0.0-0.5 [facility] Comment on above: Performed By: #### C BC #### [facility] [address] [place] [address] Dr. Eboni Smith LYMPH # 2.1 103/ul Normal 1.2-3.8 [facility] Comment on above: Performed By: #### C BC #### [facility] [address] [place] [address] Dr. Eboni Smith Lymphocytes/100 WBC (Bld) 31.2 % Normal 20.5-60.0 [facility] Comment on above: Performed By: #### C BC #### [facility] [address] [place] [address] Dr. Eboni Smith MANUAL DIFF REQ NO Normal [facility] Comment on above: Performed By: #### C BC #### [facility] [address] [place] [address] Dr. Eboni Smith MCH (RBC) [Entitic mass] 29.3 pg Normal 26.7-34.0 [facility] Comment on above: Performed By: #### C BC #### [facility] [address] [place] [address] Dr. Eboni Smith MCHC (RBC) [Mass/Vol] 32.0 g/dL Normal 29.9-35.2 [facility] Comment on above: Performed By: #### C BC #### [facility] [address] [place] [address] Dr. Eboni Smith MCV (RBC) [Entitic vol] 91.5 fL Normal 81.0-99.0 [facility] Comment on above: Performed By: #### C BC #### [facility] [address] [place] [address] Dr. Eboni Smith MONO # 0.5 103/ul Normal 0.3-0.8 [facility] Comment on above: Performed By: #### C BC #### [facility] [address] [place] [address] Dr. Eboni Smith Monocytes/100 WBC (Bld) 7.3 % Normal 1.7-12.0 [facility] Comment on above: Performed By: #### C BC #### [facility] [facility] [address] [place] [address] Dr. Eboni Smith NEUT # 4.0 103/ul Normal 1.4-6.5 [facility] Comment on above: Performed By: #### C BC #### [facility] [address] [place] [address] Dr. Eboni Smith Neutrophils/100 WBC (Bld) 58.3 % Normal 43.0-75.0 [facility] Comment on above: Performed By: #### C BC #### [facility] [address] [place] [address] Dr. Eboni Smith Platelet mean volume (Bld) [Entitic vol] 8.5 fL Critically low 9.5-13.5 [facility] Comment on above: Performed By: #### C BC #### [facility] [address] [place] [address] Dr. Eboni Smith PLT 200 103/ul Normal 150-450 [facility] Comment on above: Performed By: #### C BC #### [facility] [address] [place] [address] Dr. Eboni Smith RBC 4.34 106/ul Normal 4.20-5.40 [facility] Comment on above: Performed By: #### C BC #### [facility] [address] [place] [address] Dr. Eboni Smith WBC 6.9 103/ul Normal 4.0-11.0 [facility] Comment on above: Performed By: #### C BC #### [facility] [address] [place] [address] Dr. Eboni Smith PROF 14(COMP METB)on 09-28- 022 Albumin [Mass/Vol] 3.4 g/dL Normal 3.4-5.0 [facility] Comment on above: Performed By: #### C BC #### [facility] [address] [place] [address] Dr. Eboni Smith Albumin/Globulin [Mass ratio] 1.0 {ratio} Normal [facility] Comment on above: Performed By: #### C BC #### [facility] [address] [place] [address] Dr. Eboni Smith ALP [Catalytic activity/Vol] 75 U/L Normal 46-116 [facility] Comment on above: Performed By: #### C BC #### [facility] [address] [place] [address] Dr. Eboni Smith ALT [Catalytic activity/Vol] 16 U/L Normal 14-59 [facility] Comment on above: Performed By: #### C BC #### [facility] [address] [place] [address] Dr. Eboni Smith Anion gap [Moles/Vol] 10.2 mmol/L Normal [facility] Comment on above: Performed By: #### C BC #### [facility] [address] [address] [address] Eboni Smith AST [Catalytic activity/Vol] 18 U/L Normal 15-37 [facility] Comment on above: Performed By: #### C BC #### [facility] [address] [address] [address] Eboni Smith Bilirubin [Mass/Vol] 0.3 mg/dL Normal 0.2-1.0 [facility] Comment on above: Performed By: #### C BC #### [facility] [address] [address] [address] Eboni Smith Calcium [Mass/Vol] 9.3 mg/dL Normal 8.5-10.1 [facility] Comment on above: Performed By: #### C BC #### [facility] [address] [place] [address] Dr. Eboni Smith Chloride [Moles/Vol] 105 mmol/L Normal 98-107 [facility] Comment on above: Performed By: #### C BC #### [facility] [address] [address] [address] Eboni Smith CO2 [Moles/Vol] 29.1 mmol/L Normal 21.0-32.0 [facility] Comment on above: Performed By: #### C BC #### [facility] [address] [place] [address] Dr. Eboni Smith Creatinine [Mass/Vol] 0.87 mg/dL Normal 0.55-1.02 [facility] Comment on above: Performed By: #### C BC #### [facility] [address] [address] [address] Eboni Smith EGFR-AF CROATIAN >60 Normal >=60 [facility] Comment on above: Performed By: #### C BC #### [facility] [address] [place] [address] Dr. Eboni Smith EGFR-NON AF CROATIAN >60 Normal >=60 [facility] Comment on above: Performed By: #### C BC #### [facility] [address] [place] [address] Dr. Eboni Smith Globulin (S) [Mass/Vol] 3.4 g/dL Normal [facility] Comment on above: Performed By: #### C BC #### [facility] [address] [address] [address] Eboni Smith Glucose [Mass/Vol] 82 mg/dL Normal 74-106 [facility] Comment on above: Performed By: #### C BC #### [facility] [address] [address] [address] Eboni Smith Potassium [Moles/Vol] 4.3 mmol/L Normal 3.5-5.1 [facility] Comment on above: Performed By: #### C BC #### [facility] [address] [place] [address] Dr. Eboni Smith Protein [Mass/Vol] 6.8 g/dL Normal 6.4-8.2 [facility] Comment on above: Performed By: #### C BC #### [facility] [address] [place] [address] Dr. Eboni Smith Sodium [Moles/Vol] 140 mmol/L Normal 136-145 [facility] Comment on above: Performed By: #### C BC #### [facility] [address] [place] [address] Dr. Eboni Smith Urea nitrogen [Mass/Vol] 16.0 mg/dL Normal 7.0-18.0 [facility] Comment on above: Performed By: #### C BC #### [facility] [address] [place] [address] Dr. Eboni Smith Urea nitrogen/Creatinine [Mass ratio] 18.4 mg/mg Normal [facility] Comment on above: Performed By: #### C BC #### [facility] [address] [place] [address] Dr. Eboni Smith SED RATE [facility] 2021 SED RATE 17 mm/hr Normal <=30 [facility] Comment on above: Performed By: #### C BC #### [facility] [address] [place] [address] Dr. Eboni Smith UA RANDOM W/MICROSCOPICon BACTERIA TRACE Abnormal NONE SEEN [facility] Comment on above: Performed By: #### C BC #### [facility] [address] [place] [address] Dr. Eboni Smith Bilirubin Ql (U) Negative Normal NEGATIVE [facility] Comment on above: Performed By: #### C BC #### [facility] [address] [place] [address] Dr. Eboni Smith CAST NONE SEEN Normal NONE SEEN [facility] Comment on above: Performed By: #### C BC #### [facility] [address] [place] [address] Dr. Eboni Smith Clarity (U) CLEAR Normal CLEAR [facility] Comment on above: Performed By: #### C BC #### [facility] [address] [place] [address] Dr. Eboni Smith Color (U) LT. YELLOW Normal YELLOW [facility] Comment on above: Performed By: #### C BC #### [facility] [address] [place] [address] Dr. Eboni Smith Crystals LM Nom (Urine sed) NONE SEEN Normal NONE SEEN [facility] Comment on above: Performed By: #### C BC #### [facility] [address] [place] [address] Dr. Eboni Smith Epithelial cells LM Ql (Urine sed) FEW Abnormal NONE SEEN /RARE [facility] Comment on above: Performed By: #### C BC #### [facility] [address] [place] [address] Dr. Eboni Smith Glucose Ql (U) Negative Normal NEGATIVE [facility] Comment on above: Performed By: #### C BC #### [facility] [address] [place] [address] Dr. Eboni Smith Hemoglobin Ql (U) MODERATE Abnormal NEGATIVE [facility] Comment on above: Performed By: #### C BC #### [facility] [address] [place] [address] Dr. Eboni Smith Ketones Ql (U) Negative Normal NEGATIVE [facility] Comment on above: Performed By: #### C BC #### [facility] [address] [place] [address] Dr. Eboni Smith LEUKOCYTES TRACE Abnormal NEGATIVE [facility] Comment on above: Performed By: #### C BC #### [facility] [address] [place] [address] Dr. Eboni Smith MUCOUS NONE SEEN Normal NONE SEEN [facility] Comment on above: Performed By: #### C BC #### [facility] [address] [place] [address] Dr. Eboni Smith Nitrite Ql (U) Negative Normal NEGATIVE [facility] Comment on above: Performed By: #### C BC #### [facility] [address] [place] [address] Dr. Eboni Smith pH (U) 5.0 [pH] Normal 5-9 [facility] Comment on above: Performed By: #### C BC #### [facility] [address] [place] [address] Dr. Eboni Smith RBC 5-10 Abnormal 0-2 [facility] Comment on above: Performed By: #### C BC #### [facility] [address] [place] [address] Dr. Eboni Smith SPEC GRAVITY 1.010 Normal 1.005-<=1.02 5 [facility] Comment on above: Performed By: #### C BC #### [facility] [address] [place] [address] Dr. Eboni Smith UA PROTEIN Negative Normal NEGATIVE/ TRACE [facility] Comment on above: Performed By: #### C BC #### [facility] [address] [place] [address] Dr. Eboni Smith Urobilinogen Qn (U) 0.2 {Lora'U}/dL Normal 0.2 - 1. 0 [facility] Comment on above: Performed By: #### C BC #### [facility] [address] [place] [address] Dr. Eboni Smith WBC 5-10 Abnormal NONE SEEN [facility] Comment on above: Performed By: #### C BC #### [facility] [address] [address] [address] Eboni Smith COVID-19 SOFIAOrdered By: Whitney Newberry on 09-18-2022 SARS-CoV+SARS-CoV-2 (COVID-19) Ag IA.rapid Ql (Resp) Negative Negative [facility] Comment on above: This is a [...] MORALES Date: 2022-09-18 15:20 Normal [facility] ECHOCARDIO M/2D COMPLETEon 1 11-19-2021 ECHOCARDIO M/2D COMPLETE Patient: BASHIR COATS Exam Date: 09/18/2022 : 1955 Gender:F Ordering : DR ANGELIC VICK M.D. Admission #: [id number] Family : DR STEVE ARMENDARIZ D.O. Order #: [id number] CLICK HERE TO VIEW EXAM ECHOCARDIOGRAM REPORT [...] on 09/20/2022 at 13:59 Normal [facility] HEMOGLOBINon 09-18-2022 Hemoglobin (Bld) [Mass/Vol] 12.4 g/dL Normal 12.0-16.0 [facility] Comment on above: Performed By: #### C SUITE #### [facility] [address] [place] [address] Dr. Eboni Smith No Panel InformationOrdered By: Alex Newberry on 09-18-2022 SARS Antigen (LFIA) [facility] SARS Antigen (LFIA) [facility] COMPLEMENT TOTAL (CH50)on Complement, Total (CH50) 59 U/mL Normal >41 [facility] Comment on above: Result Comment: Age [...] Performed By: #### C H50T #### [facility] [address] [place] [address] Dr. Eboin Smith C3 and C4 COMPLEMENTon 06-10 Complement C3, Serum 118 mg/dL Normal 82-167 [facility] Comment on above: Performed By: #### C SUITE #### [facility] [address] [place] [address] Dr. Eboni Smith Complement C4, Serum 22 mg/dL Normal 12-38 [facility] Comment on above: Performed By: #### C SUITE #### [facility] [address] [place] [address] Dr. Eboni Smith CBC AUTO DIFFon 06-09-2022 BASO # 0.0 103/ul Normal 0.0-0.1 [facility] Comment on above: Performed By: #### C BC #### [facility] [address] [place] [address] Dr. Eboni Smith Basophils/100 WBC (Bld) 0.4 % Normal 0.2-2.0 [facility] Comment on above: Performed By: #### C BC #### [facility] [address] [place] [address] Dr. Eboni Smith EO # 0.2 103/ul Normal 0.0-0.7 [facility] Comment on above: Performed By: #### C BC #### [facility] [address] [place] [address] Dr. Eboni Smith Eosinophils/100 WBC (Bld) 2.3 % Normal 0.9-7.0 [facility] Comment on above: Performed By: #### C BC #### [facility] [address] [place] [address] Dr. Eboni Smith Erythrocyte distribution width (RBC) [Ratio] 13.6 % Normal 11.0-15.0 [facility] Comment on above: Performed By: #### C BC #### [facility] [address] [place] [address] Dr. Eboni Smith Hematocrit (Bld) [Volume fraction] 40.7 % Normal 36.0-48.0 [facility] Comment on above: Performed By: #### C BC #### [facility] [address] [place] [address] Dr. Eboni Smith Hemoglobin (Bld) [Mass/Vol] 12.9 g/dL Normal 12.0-16.0 [facility] Comment on above: Performed By: #### C BC #### [facility] [address] [place] [address] Dr. Eboni Smith IG # 0.02 10e3/ul Normal 0.00-0.03 [facility] Comment on above: Performed By: #### C BC #### [facility] [address] [place] [address] Dr. Eboni Smith IG % 0.3 % Normal 0.0-0.5 [facility] Comment on above: Performed By: #### C BC #### [facility] [address] [place] [address] Dr. Eboni Smith LYMPH # 2.3 103/ul Normal 1.2-3.8 [facility] Comment on above: Performed By: #### C BC #### [facility] [address] [place] [address] Dr. Eboni Smith Lymphocytes/100 WBC (Bld) 33.6 % Normal 20.5-60.0 [facility] Comment on above: Performed By: #### C BC #### [facility] [address] [place] [address] Dr. Eboni Smith MANUAL DIFF REQ NO Normal [facility] Comment on above: Performed By: #### C BC #### [facility] [address] [place] [address] Dr. Eboni Smith MCH (RBC) [Entitic mass] 29.5 pg Normal 26.7-34.0 [facility] Comment on above: Performed By: #### C BC #### [facility] [address] [place] [address] Dr. Eboni Smith MCHC (RBC) [Mass/Vol] 31.7 g/dL Normal 29.9-35.2 [facility] Comment on above: Performed By: #### C BC #### [facility] [address] [address] [address] Eboni Smith MCV (RBC) [Entitic vol] 92.9 fL Normal 81.0-99.0 [facility] Comment on above: Performed By: #### C BC #### [facility] [address] [place] [address] Dr. Eboni Smith MONO # 0.6 103/ul Normal 0.3-0.8 [facility] Comment on above: Performed By: #### C BC #### [facility] [address] [place] [address] Dr. Eboni Smith Monocytes/100 WBC (Bld) 8.1 % Normal 1.7-12.0 [facility] Comment on above: Performed By: #### C BC #### [facility] [address] [place] [address] Dr. Eboni Smith NEUT # 3.8 103/ul Normal 1.4-6.5 [facility] Comment on above: Performed By: #### C BC #### [facility] [address] [place] [address] Dr. Eboni Smith Neutrophils/100 WBC (Bld) 55.3 % Normal 43.0-75.0 [facility] Comment on above: Performed By: #### C BC #### [facility] [address] [address] [address] Eboni Smith Platelet mean volume (Bld) [Entitic vol] 8.8 fL Critically low 9.5-13.5 [facility] Comment on above: Performed By: #### C BC #### [facility] [address] [place] [address] Dr. Eboni Smith PLT 209 103/ul Normal 150-450 [facility] Comment on above: Performed By: #### C BC #### [facility] [address] [place] [address] Dr. Eboni Smith RBC 4.38 106/ul Normal 4.20-5.40 [facility] Comment on above: Performed By: #### C BC #### [facility] [address] [place] [address] Dr. Eboni Smith WBC 6.9 103/ul Normal 4.0-11.0 [facility] Comment on above: Performed By: #### C BC #### [facility] [address] [place] [address] Dr. Eboni Smith PROF 14(COMP METB)on 022 Albumin [Mass/Vol] 3.6 g/dL Normal 3.4-5.0 [facility] Comment on above: Performed By: #### C SUITE #### [facility] [address] [place] [address] Dr. Eboni Smith Albumin/Globulin [Mass ratio] 1.1 {ratio} Normal [facility] Comment on above: Performed By: #### C SUITE #### [facility] [address] [place] [address] Dr. Eboni Smith ALP [Catalytic activity/Vol] 78 U/L Normal 46-116 [facility] Comment on above: Performed By: #### C SUITE #### [facility] [address] [place] [address] Dr. Eboni Smith ALT [Catalytic activity/Vol] 19 U/L Normal 14-59 [facility] Comment on above: Performed By: #### C SUITE #### [facility] [address] [place] [address] Dr. Eboni Smith Anion gap [Moles/Vol] 10.4 mmol/L Normal [facility] Comment on above: Performed By: #### C SUITE #### [facility] [address] [place] [address] Dr. Eboni Smith AST [Catalytic activity/Vol] 18 U/L Normal 15-37 [facility] Comment on above: Performed By: #### C SUITE #### [facility] [address] [place] [address] Dr. Eboni Smith Bilirubin [Mass/Vol] 0.3 mg/dL Normal 0.2-1.0 [facility] Comment on above: Performed By: #### C SUITE #### [facility] [address] [address] [address] Eboni Smith Calcium [Mass/Vol] 8.9 mg/dL Normal 8.5-10.1 [facility] Comment on above: Performed By: #### C SUITE #### [facility] [address] [address] [address] Eboni Smith Chloride [Moles/Vol] 105 mmol/L Normal 98-107 [facility] Comment on above: Performed By: #### C SUITE #### [facility] [address] [address] [address] Eboni Smith CO2 [Moles/Vol] 28.8 mmol/L Normal 21.0-32.0 [facility] Comment on above: Performed By: #### C SUITE #### [facility] [address] [place] [address] Dr. Eboni mSith Creatinine [Mass/Vol] 0.88 mg/dL Normal 0.55-1.02 [facility] Comment on above: Performed By: #### C SUITE #### [facility] [address] [place] [address] Dr. Eboni Smith EGFR-AF CROATIAN >60 Normal >=60 [facility] Comment on above: Performed By: #### C SUITE #### [facility] [address] [address] [address] Eboni Smith EGFR-NON AF CROATIAN >60 Normal >=60 [facility] Comment on above: Performed By: #### C SUITE #### [facility] [address] [address] [address] Eboni Smith Globulin (S) [Mass/Vol] 3.3 g/dL Normal [facility] Comment on above: Performed By: #### C SUITE #### [facility] [address] [address] [address] Eboni Smith Glucose [Mass/Vol] 98 mg/dL Normal 74-106 [facility] Comment on above: Performed By: #### C SUITE #### [facility] [address] [address] [address] Eboni Smith Potassium [Moles/Vol] 4.2 mmol/L Normal 3.5-5.1 [facility] Comment on above: Performed By: #### C SUITE #### [facility] [address] [address] [address] Eboni Smith Protein [Mass/Vol] 6.9 g/dL Normal 6.4-8.2 [facility] Comment on above: Performed By: #### C SUITE #### [facility] [address] [address] [address] Eboni Smith Sodium [Moles/Vol] 140 mmol/L Normal 136-145 [facility] Comment on above: Performed By: #### C SUITE #### [facility] [address] [address] [address] Eboni Smith Urea nitrogen [Mass/Vol] 22.0 mg/dL Critically high 7.0-18.0 [facility] Comment on above: Performed By: #### C SUITE #### [facility] [address] [address] [address] Eboni Smith Urea nitrogen/Creatinine [Mass ratio] 25.0 mg/mg Normal [facility] Comment on above: Performed By: #### C SUITE #### [facility] [address] [address] [address] Eboni Smith [facility] SED RATE 21 mm/hr Normal <=30 [facility] Comment on above: Performed By: #### C SUITE #### [facility] [address] [place] [address] Dr. Eboni Smith UA RANDOM W/MICROSCOPICon BACTERIA NONE SEEN Normal NONE SEEN [facility] Comment on above: Performed By: #### U AMIC #### [facility] [address] [place] [address] Dr. Eboni Smith Bilirubin Ql (U) Negative Normal NEGATIVE [facility] Comment on above: Performed By: #### U AMIC #### [facility] [address] [address] [address] Eboni Smith CAST NONE SEEN Normal NONE SEEN [facility] Comment on above: Performed By: #### U AMIC #### [facility] [address] [address] [address] Eboni Smith Clarity (U) CLEAR Normal CLEAR [facility] Comment on above: Performed By: #### U AMIC #### [facility] [address] [address] [address] Eboni Smith Color (U) LT. YELLOW Normal YELLOW [facility] Comment on above: Performed By: #### U AMIC #### [facility] [address] [address] Dr. Eboni Smith Crystals LM Nom (Urine sed) NONE SEEN Normal NONE SEEN [facility] Comment on above: Performed By: #### U AMIC #### [facility] [address] [place] [address] Dr. Eboni Smith Epithelial cells LM Ql (Urine sed) FEW Abnormal NONE SEEN /RARE [facility] Comment on above: Performed By: #### U AMIC #### [facility] [address] [place] [address] Dr. Eboni Smith Glucose Ql (U) Negative Normal NEGATIVE [facility] Comment on above: Performed By: #### U AMIC #### [facility] [address] [place] [address] Dr. Eboni Smith Hemoglobin Ql (U) SMALL Abnormal NEGATIVE [facility] Comment on above: Performed By: #### U AMIC #### [facility] [address] [place] [address] Dr. Eboni Smith Ketones Ql (U) Negative Normal NEGATIVE [facility] Comment on above: Performed By: #### U AMIC #### [facility] [address] [place] [address] Dr. Eboni Smith LEUKOCYTES TRACE Abnormal NEGATIVE [facility] Comment on above: Performed By: #### U AMIC #### [facility] [address] [place] [address] Dr. Eboni Smith MUCOUS NONE SEEN Normal NONE SEEN [facility] Comment on above: Performed By: #### U AMIC #### [facility] [address] [address] [address] Eboni Smith Nitrite Ql (U) Negative Normal NEGATIVE [facility] Comment on above: Performed By: #### U AMIC #### [facility] [address] [place] [address] Dr. Eboni Smith pH (U) 6.0 [pH] Normal 5-9 [facility] Comment on above: Performed By: #### U AMIC #### [facility] [address] [place] [address] Dr. Eboni Smith RBC 2-5 Abnormal 0-2 [facility] Comment on above: Performed By: #### U AMIC #### [facility] [address] [place] [address] Dr. Eboni Smith SPEC GRAVITY 1.010 Normal 1.005-<=1.02 5 [facility] Comment on above: Performed By: #### U AMIC #### [facility] [address] [place] [address] Dr. Eboni Smith UA PROTEIN Negative Normal NEGATIVE/ TRACE [facility] Comment on above: Performed By: #### U AMIC #### [facility] [address] [place] [address] Dr. Eboni Smith Urobilinogen Qn (U) 0.2 {Lora'U}/dL Normal 0.2 - 1. 0 [facility] Comment on above: Performed By: #### U AMIC #### [facility] [address] [place] [address] Dr. Eboni Smith WBC 2-5 Abnormal NONE SEEN [facility] Comment on above: Performed By: #### U AMIC #### [facility] [address] [place] [address] Dr. Eboni Smith C3 and C4 COMPLEMENTon 03-01 Complement C3, Serum 110 mg/dL Normal 82-167 [facility] Comment on above: Performed By: #### C SUITE #### [facility] [address] [place] [address] Dr. Eboni Smith Complement C4, Serum 22 mg/dL Normal 12-38 [facility] Comment on above: Performed By: #### C SUITE #### [facility] [address] [place] [address] Dr. Eboni Smith COMPLEMENT TOTAL (CH50)on Complement, Total (CH50) >60 Normal >41 [facility] Comment on above: Result Comment: Age [...] Performed By: #### C BC #### [facility] [address] [place] [address] Dr. Eboni Smith CBC AUTO DIFFon 02-28-2022 BASO # 0.0 103/ul Normal 0.0-0.1 [facility] Comment on above: Performed By: #### C SUITE #### [facility] [address] [place] [address] Dr. Eboni Smith Basophils/100 WBC (Bld) 0.2 % Normal 0.2-2.0 [facility] Comment on above: Performed By: #### C SUITE #### [facility] [address] [place] [address] Dr. Eboni Smith EO # 0.1 103/ul Normal 0.0-0.7 [facility] Comment on above: Performed By: #### C SUITE #### [facility] [address] [place] [address] Dr. Eboni Smith Eosinophils/100 WBC (Bld) 1.5 % Normal 0.9-7.0 [facility] Comment on above: Performed By: #### C SUITE #### [facility] [address] [place] [address] Dr. Eboni Smith Erythrocyte distribution width (RBC) [Ratio] 14.6 % Normal 11.0-15.0 [facility] Comment on above: Performed By: #### C SUITE #### [facility] [address] [place] [address] Dr. Eboni Smiht Hematocrit (Bld) [Volume fraction] 38.9 % Normal 36.0-48.0 [facility] Comment on above: Performed By: #### C SUITE #### [facility] [address] [place] [address] Dr. Eboni Smith Hemoglobin (Bld) [Mass/Vol] 12.4 g/dL Normal 12.0-16.0 [facility] Comment on above: Performed By: #### C SUITE #### [facility] [address] [place] [address] Dr. Eboni Smith IG # 0.02 10e3/ul Normal 0.00-0.03 [facility] Comment on above: Performed By: #### C SUITE #### [facility] [address] [place] [address] Dr. Eboni Smith IG % 0.2 % Normal 0.0-0.5 [facility] Comment on above: Performed By: #### C SUITE #### [facility] [address] [place] [address] Dr. Eboni Smith LYMPH # 2.3 103/ul Normal 1.2-3.8 [facility] Comment on above: Performed By: #### C SUITE #### [facility] [address] [place] [address] Dr. Eboni Smith Lymphocytes/100 WBC (Bld) 27.7 % Normal 20.5-60.0 [facility] Comment on above: Performed By: #### C SUITE #### [facility] [address] [place] [address] Dr. Eboni Smith MANUAL DIFF REQ NO Normal [facility] Comment on above: Performed By: #### C SUITE #### [facility] [address] [place] [address] Dr. Eboni Smith MCH (RBC) [Entitic mass] 29.1 pg Normal 26.7-34.0 [facility] Comment on above: Performed By: #### C SUITE #### [facility] [address] [place], [place] [id number] Dr. Eboni Smith MCHC (RBC) [Mass/Vol] 31.9 g/dL Normal 29.9-35.2 [facility] Comment on above: Performed By: #### C SUITE #### [facility] [address] [place] [address] Dr. Eboni Smith MCV (RBC) [Entitic vol] 91.3 fL Normal 81.0-99.0 [facility] Comment on above: Performed By: #### C SUITE #### [facility] [address] [place] [address] Dr. Eboni Smith MONO # 0.6 103/ul Normal 0.3-0.8 [facility] Comment on above: Performed By: #### C SUITE #### [facility] [address] [place] [address] Dr. Eboni Smith Monocytes/100 WBC (Bld) 6.7 % Normal 1.7-12.0 [facility] Comment on above: Performed By: #### C SUITE #### [facility] [address] [place] [address] Dr. Eboni Smith NEUT # 5.3 103/ul Normal 1.4-6.5 [facility] Comment on above: Performed By: #### C SUITE #### [facility] [address] [place] [address] Dr. Eboni Smith Neutrophils/100 WBC (Bld) 63.7 % Normal 43.0-75.0 [facility] Comment on above: Performed By: #### C SUITE #### [facility] [address] [place] [address] Dr. Eboni Smith Platelet mean volume (Bld) [Entitic vol] 8.3 fL Critically low 9.5-13.5 [facility] Comment on above: Performed By: #### C SUITE #### [facility] [address] [place] [address] Dr. Eboni Smith PLT 185 103/ul Normal 150-450 [facility] Comment on above: Performed By: #### C SUITE #### [facility] [address] [place] [address] Dr. Eboni Smith RBC 4.26 106/ul Normal 4.20-5.40 [facility] Comment on above: Performed By: #### C SUITE #### [facility] [address] [place] [address] Dr. Eboni Smith WBC 8.2 103/ul Normal 4.0-11.0 [facility] Comment on above: Performed By: #### C SUITE #### [facility] [address] [place] [address] Dr. Eboni Smiht PROF 14(COMP METB)on 022 Albumin [Mass/Vol] 3.5 g/dL Normal 3.4-5.0 [facility] Comment on above: Performed By: #### C SUITE #### [facility] [address] [place] [address] Dr. Eboni Smith Albumin/Globulin [Mass ratio] 1.0 {ratio} Normal [facility] Comment on above: Performed By: #### C SUITE #### [facility] [address] [place] [address] Dr. Eboni Smith ALP [Catalytic activity/Vol] 70 U/L Normal 46-116 [facility] Comment on above: Performed By: #### C SUITE #### [facility] [address] [place] [address] Dr. Eboni Smith ALT [Catalytic activity/Vol] 23 U/L Normal 14-59 [facility] Comment on above: Performed By: #### C SUITE #### [facility] [address] [place] [address] Dr. Eboni Smith Anion gap [Moles/Vol] 12.1 mmol/L Normal [facility] Comment on above: Performed By: #### C SUITE #### [facility] [address] [place] [address] Dr. Eboni Smith AST [Catalytic activity/Vol] 10 U/L Critically low 15-37 [facility] Comment on above: Performed By: #### C SUITE #### [facility] [address] [place] [address] Dr. Eboni Smith Bilirubin [Mass/Vol] 0.3 mg/dL Normal 0.2-1.0 [facility] Comment on above: Performed By: #### C SUITE #### [facility] [address] [place] [address] Dr. Eboni Smith Calcium [Mass/Vol] 8.9 mg/dL Normal 8.5-10.1 [facility] Comment on above: Performed By: #### C SUITE #### [facility] [address] [place] [address] Dr. Eboni Smith Chloride [Moles/Vol] 104 mmol/L Normal 98-107 [facility] Comment on above: Performed By: #### C SUITE #### [facility] [address] [place] [address] Dr. Eboni Smith CO2 [Moles/Vol] 27.5 mmol/L Normal 21.0-32.0 [facility] Comment on above: Performed By: #### C SUITE #### [facility] [address] [place] [address] Dr. Eboni Smith Creatinine [Mass/Vol] 0.88 mg/dL Normal 0.55-1.02 [facility] Comment on above: Performed By: #### C SUITE #### [facility] [address] [place] [address] Dr. Eboni Smith EGFR-AF CROATIAN >60 Normal >=60 [facility] Comment on above: Performed By: #### C SUITE #### [facility] [address] [place] [address] Dr. Eboni Smith EGFR-NON AF CROATIAN >60 Normal >=60 [facility] Comment on above: Performed By: #### C SUITE #### [facility] [address] [place] [address] Dr. Eboni Smith Globulin (S) [Mass/Vol] 3.4 g/dL Normal [facility] Comment on above: Performed By: #### C SUITE #### [facility] [address] [place] [address] Dr. Eboni Smith Glucose [Mass/Vol] 105 mg/dL Normal 74-106 [facility] Comment on above: Performed By: #### C SUITE #### [facility] [address] [address] [address] Eboni Smith Potassium [Moles/Vol] 4.3 mmol/L Normal 3.5-5.1 [facility] Comment on above: Performed By: #### C SUITE #### [facility] [address] [address] [address] Eboni Smith Protein [Mass/Vol] 6.9 g/dL Normal 6.4-8.2 [facility] Comment on above: Performed By: #### C SUITE #### [facility] [address] [address] [address] Eboni Smith Sodium [Moles/Vol] 139 mmol/L Normal 136-145 [facility] Comment on above: Performed By: #### C SUITE #### [facility] [address] [address] [address] Eboni Smith Urea nitrogen [Mass/Vol] 26.0 mg/dL Critically high 7.0-18.0 [facility] Comment on above: Performed By: #### C SUITE #### [facility] [address] [address] [address] Eboni Smith Urea nitrogen/Creatinine [Mass ratio] 29.5 mg/mg Normal [facility] Comment on above: Performed By: #### C SUITE #### [facility] [address] [address] [address] Eboni Smith SED RATE [facility] 2021 SED RATE 8 mm/hr Normal <=30 [facility] Comment on above: Performed By: #### C BC #### [facility] [address] [address] [address] Eboni Smith UA RANDOM W/MICROSCOPICon BACTERIA TRACE Abnormal NONE SEEN [facility] Comment on above: Performed By: #### C SUITE #### [facility] [address] [address] [address] Eboni Smith Bilirubin Ql (U) Negative Normal NEGATIVE [facility] Comment on above: Performed By: #### C SUITE #### [facility] [address] [place] [address] Dr. Eboni Smith CAST NONE SEEN Normal NONE SEEN [facility] Comment on above: Performed By: #### C SUITE #### [facility] [address] [place] [address] Dr. Eboni Smith Clarity (U) SL CLOUDY Abnormal CLEAR [facility] Comment on above: Performed By: #### C SUITE #### [facility] [address] [place] [address] Dr. Eboni Smith Color (U) LT. YELLOW Normal YELLOW [facility] Comment on above: Performed By: #### C SUITE #### [facility] [address] [place] [address] Dr. Eboni Smith Crystals LM Nom (Urine sed) NONE SEEN Normal NONE SEEN [facility] Comment on above: Performed By: #### C SUITE #### [facility] [address] [place] [address] Dr. Eboni Smith Epithelial cells LM Ql (Urine sed) RARE Normal NONE SEEN /RARE [facility] Comment on above: Performed By: #### C SUITE #### [facility] [address] [place] [address] Dr. Eboni Smith Glucose Ql (U) Negative Normal NEGATIVE [facility] Comment on above: Performed By: #### C SUITE #### [facility] [address] [place] [address] Dr. Eboni Smith Hemoglobin Ql (U) SMALL Abnormal NEGATIVE [facility] Comment on above: Performed By: #### C SUITE #### [facility] [address] [place] [address] Dr. Eboni Smith Ketones Ql (U) Negative Normal NEGATIVE [facility] Comment on above: Performed By: #### C SUITE #### [facility] [address] [place] [address] Dr. Eboni Smith LEUKOCYTES SMALL Abnormal NEGATIVE [facility] Comment on above: Performed By: #### C SUITE #### [facility] [address] [place] [address] Dr. Eboni Smith MUCOUS NONE SEEN Normal NONE SEEN [facility] Comment on above: Performed By: #### C SUITE #### [facility] [address] [place] [address] Dr. Eboni Smith Nitrite Ql (U) Negative Normal NEGATIVE [facility] Comment on above: Performed By: #### C SUITE #### [facility] [address] [place] [address] Dr. Eboni Smith pH (U) 5.0 [pH] Normal 5-9 [facility] Comment on above: Performed By: #### C SUITE #### [facility] [address] [place] [address] Dr. Eboni Smith RBC 0-2 Normal 0-2 [facility] Comment on above: Performed By: #### C SUITE #### [facility] [address] [place] [address] Dr. Eboni Smith SPEC GRAVITY 1.025 Normal 1.005-<=1.02 5 [facility] Comment on above: Performed By: #### C SUITE #### [facility] [address] [place] [address] Dr. Eboni Smith UA PROTEIN Negative Normal NEGATIVE/ TRACE [facility] Comment on above: Performed By: #### C SUITE #### [facility] [address] [place] [address] Dr. Eboni Smith Urobilinogen Qn (U) 0.2 {Lora'U}/dL Normal 0.2 - 1. 0 [facility] Comment on above: Performed By: #### C SUITE #### [facility] [address] [place] [address] Dr. Eboni Smith WBC 2-5 Abnormal NONE SEEN [facility] Comment on above: Performed By: #### C SUITE #### [facility] [address] [place] [address] Dr. Eboni Smith XR LSPINE 2_3 VIEWSon [...] by: EULALIA MORALES Date: 2022-02-28 16:24 Normal [facility] COVID-19 Positive/Negativeon 03-15-2021 SARS-CoV-2 (COVID-19) N gene TERRIE+probe Ql (Resp) Negative Negative [facility] Comment on above: Testing for SARS-CoV -2 by RT-PCRThis test was developed and its performance characteristics determined by [employer] ([employer]) and validated at the [facility]. This test has not been FDA [...] Reminder/Recall done 08/25/19 done, results negative Normal [facility] Operative Reporton 9 Operative Report Result type: Progres s Note-Physician Result date: September 02, 2019 14:16 EST Result status: Auth (Verified) Result title: EU Local Female Cystoscopy w/ or w/o UD - FT Performed by: David ALARCON MD on September 02, 2019 14:17 EST Verified by: David ALARCON MD on September 02, 2019 14:17 EST Encounter info: [id number], [facility], Outpatient, 09/02/2019 - 09/02/2019 * Final [...] and Time Signed: 09/02/19 14:17 EST Normal [facility] Comment on above: Result Comment: Elec tronically [...] with antibiotic coverage, Follow up arranged. Normal [facility] Comment on above: Result Comment: ERRO R - WRONG FOLDER Electronically Signed By: David ALARCON MD\.br\Date and Time Signed: 09/02/19 14:17 EST Coding Summary.on 09-03-2019 Coding Summary. CODING DATE: 09/03/2019 FINAL [facility] STATUS: Home (Routine DC) PAYOR: Medicare [...] Jessica Morillo Date Saved: 09/03/2019 09:50 am [facility] Main OR Intraoperative Recor don 09-02-2019 Main OR Intraoperative Record IntraOp Document Type FTURO Summary Primary Physician: David ALARCON MD Finalized Date/Time: 09/02/19 14:16:24 Pt. Name: BASHIR COATS /Sex: 1955 Female Med Rec #: [id number] Physician: David ALARCON MD Financial #: [id number] Pt. Type: O Room/Bed: / Admit/Disch: 09/02/19 [...] Noemi Stevens Role Performed Surgeon - Primary Purchasing Coordinator - Primary Scrub - Primary Time In [...] De Jesus MORRISSEY, RUBIO, Applicable) Yarely Stevens MAGNETIC OBSERVER, Noemi Time Out Complete 09/02/19 14:11:00 Allergies [...] Jesus MORRISSEY RN, Kelly 09/02/19 14:16 Normal [facility] Main OR Preoperative Recordo n 09-02-2019 Main OR Preoperative Record Holding Area Document Type FTURO Summary Primary Physician: David ALARCON MD Finalized Date/Time: 09/02/19 14:09:52 Pt. Name: BASHIR COATS D.O.B./Sex: 1955 Female Med Rec #: [id number] Physician: David ALARCON MD Financial #: [id number] Pt. Type: O Room/Bed: / Admit/Disch: 09/02/19 [...] Jesus MORRISSEY RN, Kelly 09/02/19 14:09 Normal [facility] MRI LUMBAR SPINE WO CONTRAST on 08-07-2018 MRI L[facility]BAR SP[facility] WO CONTR[facility] [place] [address] Patient Name: BASHIR COATS: 1955Sex: FAge: Race: WhiteMRN: [id number]. Location: 84Patient Status: DVisit #: [id number] Date: 07/10/2018 12:35:00 PMCompleted Date: 08/07/2018 02:49 PMRequesting Provider: GARETH REYES Attending Provider: Report Copy To: Signs & Symptoms: M54.5 Low back pain V11Hyhyeil: Kacie, NO FB per [facility] auth # [id number] 07/29/18-09/27/18 [id number] *erComments: , , , Ordering Provider - GARETH REYES MD , Exam: MRI LUMBAR SPINE WO CONTRASTAccession #: [id number] MRI LUMBAR SPINE WO CONTRAST 08/07/2018 2:49 [...] above. Electronically signed by:Parul Whitfield. Transcribed by: [email or web address], User Resident: Electronically Signed by: PARUL WHITFIELD @ 08/08/2018 02:33 PM Normal [facility] Comment on above: Order Comment: , , = ========= , Ordering Provider - GARETH REYES MD , Operative Reporton 8 Operative Report MR#: [id number] [facility] Pt. Name: Bashir Coats Room #: 0C Discharge Date: Birthdate: 1955 OPERATIVE REPORTDATE OF SURGERY: 07/31/2018SURGEON: Pavel Leon M.D.PREOPERATIVE DIAGNOSIS: Soft tissue calcifications, right small fingertip.POSTOPERATI VE DIAGNOSIS: Soft tissue calcifications, right small fingertip.PROCEDURE: Excision of calcific lesions, right small finger tip.PRINCIPAL BIOINFORMATICS SPECIALIST: Christopher Gay M.D.ANESTHESIA: Local 1% plain lidocaine.INDICATION [...] 07/31/2018/11:05 A/Pavel Leon M.D.Date Trans: 07/31/2018 12:55 P/[id number]: Gee Merchant D.O. [address] [facility] [address] [facility] Vital Signs Date Time Vital Sign Value Performing Clinician Facility 08-13-2024 11:52-0400 Body height 149.86 cm DO Steve Ball Work Phone: [facility] 08-13-2024 11:52-0400 Body mass index (BMI) [Ratio] 35.7 kg/m2 DO Steve Ball Work Phone: [facility] 08-13-2024 11:52-0400 Body temperature 97.9 [degF] DO Steve Ball Work Phone: [facility] 08-13-2024 11:52-0400 Body weight 80.28 kg DO Steve Ball Work Phone: [facility] 08-13-2024 11:52-0400 Diastolic blood pressure 82 mm[Hg] DO Steve Ball Work Phone: [facility] 08-13-2024 11:52-0400 Heart rate 84 /min DO Steve Ball Work Phone: [facility] 08-13-2024 11:52-0400 SaO2% (BldA) [Mass fraction] 98 % DO Steve Ball Work Phone: [facility] 08-13-2024 11:52-0400 Systolic blood pressure 136 mm[Hg] DO Steve Ball Work Phone: [facility] 07-15-2024 14:44-0400 Body height 152.4 cm Sujey Camargo MD Work Phone: [facility] 07-15-2024 14:44-0400 Body mass index (BMI) [Ratio] 34.57 kg/m2 Sujey Camargo MD Work Phone: [facility] 07-15-2024 14:44-0400 Body weight 80.29 kg Sujey Camargo MD Work Phone: [facility] 07-15-2024 14:44-0400 Diastolic blood pressure 74 mm[Hg] Sujey Camargo MD Work Phone: [facility] 07-15-2024 14:44-0400 Systolic blood pressure 142 mm[Hg] Sujey Camargo MD Work Phone: [facility] 07-02-2024 14:40-0400 Body height 152.4 cm DO Steve Ball Work Phone: [facility] 07-02-2024 14:40-0400 Body mass index (BMI) [Ratio] 34.9 kg/m2 DO Steve Ball Work Phone: [facility] 07-02-2024 14:40-0400 Body weight 81.19 kg DO Steve Ball Work Phone: [facility] 07-02-2024 14:40-0400 Diastolic blood pressure 78 mm[Hg] DO Steve Ball Work Phone: [facility] 07-02-2024 14:40-0400 Heart rate 72 /min DO Steve Ball Work Phone: [facility] 07-02-2024 14:40-0400 Respiratory rate 12 /min DO Steve Ball Work Phone: [facility] 07-02-2024 14:40-0400 Systolic blood pressure 141 mm[Hg] DO Steve Ball Work Phone: [facility] 06-09-2024 14:21-0400 Body height 152.4 cm DO Steve Ball Work Phone: [facility] 06-09-2024 14:21-0400 Body mass index (BMI) [Ratio] 34.2 kg/m2 DO Steve Ball Work Phone: [facility] 06-09-2024 14:21-0400 Body weight 79.37 kg DO Steve Ball Work Phone: [facility] 02-06-2024 12:05-0400 Body height 152.4 cm DO Steve Ball Work Phone: [facility] 02-06-2024 12:05-0400 Body mass index (BMI) [Ratio] 34.2 kg/m2 DO Steve Ball Work Phone: [facility] 02-06-2024 12:05-0400 Body temperature 98 [degF] DO Steve Ball Work Phone: [facility] 02-06-2024 12:05-0400 Body weight 79.37 kg DO Steve Ball Work Phone: [facility] 02-06-2024 12:05-0400 Diastolic blood pressure 70 mm[Hg] DO Steve Ball Work Phone: [facility] 02-06-2024 12:05-0400 Heart rate 76 /min DO Steve Ball Work Phone: [facility] 02-06-2024 12:05-0400 Respiratory rate 16 /min DO Steve Ball Work Phone: [facility] 02-06-2024 12:05-0400 SaO2% (BldA) [Mass fraction] 97 % DO Steve Ball Work Phone: [facility] 02-06-2024 12:05-0400 Systolic blood pressure 138 mm[Hg] DO Steve Ball Work Phone: [facility] 12-26-2023 12:07-0400 Body height 152.4 cm DO Steve Ball Work Phone: [facility] 12-26-2023 12:07-0400 Body mass index (BMI) [Ratio] 34.2 kg/m2 DO Steve Ball Work Phone: [facility] 12-26-2023 12:07-0400 Body temperature 97.8 [degF] DO Steve Ball Work Phone: [facility] 12-26-2023 12:07-0400 Body weight 79.37 kg DO Steve Ball Work Phone: [facility] 12-26-2023 12:07-0400 Diastolic blood pressure 64 mm[Hg] DO Steve Ball Work Phone: [facility] 12-26-2023 12:07-0400 Heart rate 84 /min DO Steve Ball Work Phone: [facility] 12-26-2023 12:07-0400 Respiratory rate 16 /min DO Steve Ball Work Phone: [facility] 12-26-2023 12:07-0400 SaO2% (BldA) [Mass fraction] 98 % DO Steve Ball Work Phone: [facility] 12-26-2023 12:07-0400 Systolic blood pressure 116 mm[Hg] DO Steve Ball Work Phone: [facility] 10-25-2023 13:45-0500 Body height 154.94 cm Alex [employer] Other [facility] 10-25-2023 13:45-0500 Body mass index (BMI) [Ratio] 34.38 kg/m2 Alex [employer] Other [facility] [employer] Other 10-25-2023 13:45-0500 Body weight 82.56 kg Alex De La Cruzormack Other [facility] [employer] Other 10-25-2023 13:45-0500 Body weight 82.55 kg DO Steve Ball Work Phone: [facility] 10-09-2023 15:00-0500 Body height 154.94 cm Steve Ball Other [employer] Other 10-09-2023 15:00-0500 Body mass index (BMI) [Ratio] 34.38 kg/m2 Steve Ball Other [employer] Other 10-09-2023 15:00-0500 Body weight 82.56 kg Steve Ball Other [employer] Other 10-09-2023 15:00-0500 Diastolic blood pressure 81 mm[Hg] Steve Ball Other [employer] Other 10-09-2023 15:00-0500 Respiratory rate 12 /min Steve Ball Other [employer] Other 10-09-2023 15:00-0500 Systolic blood pressure 130 mm[Hg] Steve Ball Other [employer] Other 06-07-2023 12:45-0400 Body height 154.94 cm Chiara Damon Other [employer] Other 06-07-2023 12:45-0400 Body mass index (BMI) [Ratio] 34.27 kg/m2 Chiara Aranamond Other [employer] Other 06-07-2023 12:45-0400 Body temperature 98.9 [degF] Chiara Aranamond Other [employer] Other 06-07-2023 12:45-0400 Body weight 82.28 kg Chiara Aranamond Other [employer] Other 06-07-2023 12:45-0400 Diastolic blood pressure 75 mm[Hg] Chiara Marisol Other [employer] Other 06-07-2023 12:45-0400 Respiratory rate 18 /min Chiara Marisol Other [employer] Other 06-07-2023 12:45-0400 SaO2% (BldA) [Mass fraction] 98 % Chiara Marisol Other [employer] Other 06-07-2023 12:45-0400 Systolic blood pressure 155 mm[Hg] Chiara Marisol Other [employer] Other 01-29-2023 15:50-0400 Body height 154.94 cm Chiara Marisol Other [employer] Other 01-29-2023 15:50-0400 Body mass index (BMI) [Ratio] 34.01 kg/m2 Chiara Marisol Other [employer] Other 01-29-2023 15:50-0400 Body temperature 98 [degF] Chiara Marisol Other [employer] Other 01-29-2023 15:50-0400 Body weight 81.65 kg Chiara Marisol Other [employer] Other 01-29-2023 15:50-0400 Diastolic blood pressure 81 mm[Hg] Chiara Marisol Other [employer] Other 01-29-2023 15:50-0400 Respiratory rate 18 /min Chiara Marisol Other [employer] Other 01-29-2023 15:50-0400 SaO2% (BldA) [Mass fraction] 93 % Chiara Marisol Other [employer] Other 01-29-2023 15:50-0400 Systolic blood pressure 153 mm[Hg] Chiara Marisol Other [employer] Other 12-16-2022 13:55-0500 Body height 154.94 cm Chiara Marisol Other [employer] Other 12-16-2022 13:55-0500 Body mass index (BMI) [Ratio] 34.84 kg/m2 Chiara Damon Other [employer] Other 12-16-2022 13:55-0500 Body temperature 98.8 [degF] Chiara Damon Other [employer] Other 12-16-2022 13:55-0500 Body weight 83.64 kg Chiara Damon Other [employer] Other 12-16-2022 13:55-0500 Diastolic blood pressure 69 mm[Hg] Chiara Damon Other [employer] Other 12-16-2022 13:55-0500 Respiratory rate 18 /min Chiara Damon Other [employer] Other 12-16-2022 13:55-0500 Systolic blood pressure 140 mm[Hg] Chiara Damon Other [employer] Other 12-06-2022 13:36-0500 Diastolic blood pressure 66 mm[Hg] DO Steve Ball Work Phone: [facility] 12-06-2022 13:36-0500 Heart rate 77 /min DO Steve Ball Work Phone: [facility] 12-06-2022 13:36-0500 Respiratory rate 16 /min DO Steve Ball Work Phone: [facility] 12-06-2022 13:36-0500 SaO2% (BldA) [Mass fraction] 98 % DO Steve Ball Work Phone: [facility] 12-06-2022 13:36-0500 Systolic blood pressure 118 mm[Hg] DO Steve Ball Work Phone: [facility] 12-06-2022 12:07-0500 Body height 152.4 cm DO Steve Ball Work Phone: [facility] 12-06-2022 12:07-0500 Body temperature 98.7 [degF] DO Steve Ball Work Phone: [facility] 12-06-2022 12:07-0500 Body weight 80.73 kg DO Steve Ball Work Phone: [facility] 09-20-2022 14:32-0500 Diastolic blood pressure 80 mm[Hg] DO Steve Ball Work Phone: [facility] 09-20-2022 14:32-0500 Heart rate 72 /min DO Steve Ball Work Phone: [facility] 09-20-2022 14:32-0500 Respiratory rate 16 /min DO Steve Ball Work Phone: [facility] 09-20-2022 14:32-0500 SaO2% (BldA) [Mass fraction] 98 % DO Steve Ball Work Phone: [facility] 09-20-2022 14:32-0500 Systolic blood pressure 140 mm[Hg] DO Steve Ball Work Phone: [facility] 09-20-2022 14:02-0500 Inhaled oxygen flow rate 6 L/min DO Steve Ball Work Phone: [facility] 09-20-2022 12:20-0500 Body height 149.86 cm DO Steve Ball Work Phone: [facility] 09-20-2022 12:20-0500 Body temperature 99.2 [degF] DO Steve Ball Work Phone: [facility] 09-20-2022 12:20-0500 Body weight 79.83 kg DO Steve Ball Work Phone: [facility] Encounters Encounter Date Encounter Type Care Provider Facility Start: 08-13-2024 End: 08-13-2024 ambulatory DO Steve Ball Work Phone: [facility] Work Phone: Start: 08-13-2024 End: 08-13-2024 Patient encounter procedure DO Steve Armendariz Work Phone: [facility] V[facility] Surgery Work Phone: Start: 07-16-2024 End: 07-16-2024 ambulatory DO Steve Armendariz Work Phone: [facility] Work Phone: Start: 07-16-2024 End: 07-16-2024 Patient encounter procedure DO Steve Armendariz Work Phone: [facility] Vascular Surgery Work Phone: Start: 07-15-2024 [...] / Non-visit DO Ermias Armendariz Work Phone: [facility] Work Phone: Start: 07-02-2024 End: 07-02-2024 ambulatory DO Steve Armendariz Work Phone: [facility] Work Phone: Start: 07-02-2024 End: 07-02-2024 Patient encounter procedure DO Steve Armendariz Work Phone: [facility] Work Phone: Start: 06-29-2024 Patient encounter procedure DO Steve Armendariz Work Phone: [facility] Start: 06-17-2024 Non-patient / Non-visit DO Ermias Armendariz Work Phone[facility] Work Phone: Start: 06-09-2024 End: 06-09-2024 ambulatory DO Steve Ball Work Phone: [facility] Work Phone: Start: 06-09-2024 End: 06-09-2024 Patient encounter procedure DO Steve Armendariz Work Phone: [facility] Gastroenterology Work Phone: Start: 06-05-2024 End: 06-05-2024 Patient encounter procedure DO Steve Armendariz Work Phone: [facility] Work Phone: Start: 06-05-2024 End: 06-05-2024 ambulatory DO Steve Armendariz Work Phone: [facility] Work Phone: Start: 05-29-2024 End: 05-29-2024 ambulatory BERTIN CORRAL Not Available Start: 05-27-2024 End: 05-27-2024 ambulatory [facility] Work Phone: Start: 05-27-2024 End: 05-27-2024 Patient encounter procedure [facility] Gastroenterology Work Phone: Start: 05-15-2024 End: 05-15-2024 ambulatory BERTIN BROWNE Not Available Start: 03-18-2024 End: 03-18-2024 ambulatory BERTIN Geoff BROWNE Not Available Start: 02-26-2024 End: 02-26-2024 ambulatory BERTIN Geoff CORRAL Not Available Start: 02-06-2024 End: 02-06-2024 ambulatory DO Steve Ball Work Phone: [facility] Work Phone: Start: 02-06-2024 End: 02-06-2024 Patient encounter procedure DO Steve Armednariz Work Phone: [facility] Vascular Surgery Work Phone: Start: 01-22-2024 End: 01-22-2024 ambulatory BERTIN CORRAL Not Available Start: 01-14-2024 End: 01-14-2024 Patient encounter procedure DO Steve Armendariz Work Phone: [facility]Ultrasound [facility] [place] Work Phone: Start: 01-14-2024 End: 01-14-2024 ambulatory DO Steve Armendariz Work Phone: [facility] Work Phone: Start: 12-27-2023 End: 12-27-2023 ambulatory BERTIN CORRAL Not Available Start: 12-26-2023 End: 12-26-2023 Patient encounter procedure DO Steve Armendariz Work Phone: [facility] Physician [facility] Vascular Surgery Work Phone: Start: 12-25-2023 Non-patient / Non-visit DO Ermias Armendariz Work Phone: [facility] [employer] Work Phone: Start: 12-04-2023 End: 12-04-2023 ambulatory BERTIN CORRAL Not Available Start: 10-25-2023 End: 10-25-2023 ambulatory Alex Newberry Other [employer] Other Start: 10-25-2023 Office outpatient vi sit 15 minutes Alex Newberry [facility] Gastroenterology Start: 10-25-2023 End: 10-25-2023 Patient encounter procedure DO Steve Armendariz Work Phone: [facility] Gastroenterology Work Phone: Start: 10-09-2023 End: 10-09-2023 ambulatory Steve Armendariz Other [employer] Other Start: 10-09-2023 Office outpatient vi sit 25 minutes Steve Armendariz [facility] Start: 10-09-2023 Telephone encounter Steve Armendariz [facility] Start: 06-07-2023 Office outpatient vi sit 15 minutes Chiararoxanna Damon [facility] Start: 06-07-2023 End: 06-07-2023 ambulatory DO Steve Ball Work Phone: [facility] Work Phone: Start: 06-07-2023 End: 06-07-2023 Patient encounter procedure DO Steve Armendariz Work Phone: [facility] Work Phone: Start: 02-08-2023 End: 02-09-[address] DOCTOR DUVAL Facility: Start: 01-29-2023 End: 01-29-2023 ambulatory Chiara Damon Other [employer] Other Start: 01-29-2023 Office outpatient vi sit 15 minutes Chiararoxanna Damon [facility] Start: 12-16-2022 End: 12-16-2022 Patient encounter procedure DO Steve Armendariz Work Phone: [facility] Work Phone: Start: 12-16-2022 End: 12-16-2022 ambulatory DO Steve Armendariz Work Phone: [facility] Work Phone: Start: 12-16-2022 Office outpatient vi sit 15 minutes Chiararoxanna Damon [facility] Start: 12-06-2022 Telephone encounter Steve Armendariz [facility] Start: 12-06-2022 End: 12-06-2022 Admission to same day surgery center DO Steve Ball Work Phone: [facility]-Digestive Health Work Phone: Start: 12-06-2022 End: 12-06-2022 ambulatory DO Steve Armendariz Work Phone: [facility] Work Phone: Start: 09-28-2022 End: 09-29-[address] DOCTOR BROWN Facility:[facility] Start: 09-20-2022 End: 09-20-2022 Admission to same day surgery center DO Steve Liliam Work Phone: [facility] Work Phone: Start: 09-18-2022 End: 09-19-[address] ANGELIC VICK Facility:[facility] Start: 09-18-2022 End: 09-18-2022 ambulatory DO Steve Armendariz Work Phone: [facility] Work Phone: Start: 09-18-2022 End: 09-18-2022 Patient encounter procedure DO Steve Armendariz Work Phone: [facility]-Pre-Surgical Testing Start: 07-26-2022 End: 08-25-[address] STEVE ARMENDARIZ Facility:[facility] Start: 06-09-2022 End: 06-10-[address] DOCTOR BROWN Facility:[facility] Start: 04-24-2022 End: 05-19-[address] STEVE ARMENADRIZ Facility:[facility] Start: 04-20-2022 Adult health examination Duran Damon Other [employer] Other Start: 03-10-2022 End: 03-11-[address] STEVE ARMENDARIZ Facility:[facility] Start: 02-28-2022 End: 03-01-[address] STEVE ARMENDARIZ Facility:[facility] Start: 03-15-2021 End: 03-15-2021 Patient encounter procedure Pedro Ruiz Work Phone: -Pre-Surgical Testing Start: 08-07-2018 End: 08-08-2018 Patient encounter procedure GARETH REYES Facility:[facility] Start: 07-31-2018 End: 08-01-2018 Patient encounter procedure PAVEL LEON Facility:[facility] Procedures Date Procedure Procedure Detail Performing [...] Office Visit [facility] [address] [facility] [address] [place] [id number] Sujey Camargo MD [address] [facility] [address] [place] [address] Arrived [facility] Comment on above: Arrived Start: 07-02-2024 Patient referral [facility] Work Phone: Start: 01-14-2024 Duplex scan of lower limb veins US venous duplex LE BI [facility] Start: 01-14-2024 US Lower extremity vein - bilateral [facility] Start: 12-06-2022 [facility] Start: 09-20-2022 [facility] MG Breast - bilatera l Screening [facility] Patient Education [facility] Work Phone: Patient referral [facility] Work Phone: US Kidney - bilateral [facility] XR Lumbar spine Views [facility] Payers Date Payer Category Payer Unknown [id number] 2023 Unknown [id number] 1959 Private Health Insurance 101 [id number] 1954 Unknown [id number] [id number] 1954 Unknown [id number] 2.16.840.1.056421.3.579.2.647 1954 Unknown [id number] 2.16.840.1.490073.3.579.2.593 1954 Unknown [id number] 2.16.840.1.648525.3.579.2.593 1954 Unknown [id number] 2.16.840.1.527415.3.579.2.593 1954 Unknown [id number] 2.16.840.1.818283.3.579.2.593 1954 Unknown [id number] 2.16.840.1.437026.3.579.2.593 1954 Unknown [id number] 2.16.840.1.415977.3.579.2.593 1954 Unknown [id number] 2.16.840.1.921068.3.579.2.593 1954 Unknown [id number] 2.16.840.1.074444.3.579.2.593 1954 Unknown [id number] 2.16.840.1.145389.3.579.2.593 1954 Unknown [id number] 2.16.840.1.896580.3.579.2.1259 1954 Unknown [id number] 2.16.840.1.438596.3.579.2.1259 1954 Unknown [id number] 2.16.840.1.309721.3.579.2.1259 1954 Unknown [id number] 2.16.840.1.881396.3.579.2.1259 1954 Unknown [id number] 2.16.840.1.368918.3.579.2.1259 1954 Unknown [id number] 2.16.840.1.537246.3.579.2.1259 1954 Unknown [id number] 2.16.840.1.402882.3.579.2.1259 1954 Unknown [id number] 2.16.840.1.533804.3.579.2.1259 Medicaid [id number] Private Health Insurance [employer] [id number] Self-pay [id number] Unknown [id number] Social History Date Type Detail Facility Tobacco smoking stat [facility] Unknown if ever smoked [facility] Start: 1955 Sex Assigned At Female F [facility] Start: 12-06-2022 End: 12-03-2023 Tobacco smoking status MNIS Never smoked tobacco (finding) [facility] Start: 07-10-2024 End: 07-15-2024 Sex Assigned At 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 Sandy Drummond Extract 250 MG capsule Take by mouth. [...] per Dr Sarah documented in this encounter [facility] 10-25-2023 Evaluation note Encounter Date Diagnosis Assessment Notes Oct, GERD (gastroeso phageal reflux disease) (ICD-10 - K21.9) The patient likes Omeprazole than Famotidine. She is currently breaking open the 40 mg capsule. She does not use all of the granules. She would like to cut this to 20 mg daily. Start Omeprazole 20 mg dialy. Return visit here in six months [employer] Other 12-26-2023 Evaluation note* Encounter Date Diagnosis [...] Echo w/ normal LVEF Sep, Atherosclerosis of [place] arteries of extremities with intermittent claudication, bilateral [...] f/u Rheumatology CT chest, Echo, PFT normal [employer] Other 08-24-2023 Evaluation note* Encounter Date Diagnosis [...] the leg home care material was printed [employer] Other 04-17-2023 Evaluation note* Encounter Date Diagnosis Assessment Notes Treatment Notes Treatment Clinical Notes Jan, Bronchitis (ICD-10 - J40) Acute bronchitis material was printed Drink plenty fluids, get plenty of rest. Take your doxycycline at home, 1 tablet twice a day for 10 days. Take the prednisone as prescribed until gone. Take Robitussin, [id number] cough medicine, as needed for cough. Follow-up with your family physician if no improvement in 2 to 3 days [employer] Other 03-04-2023 Evaluation note* Encounter Date Diagnosis [...] Dec, Other Contusion mater ial was printed [employer] Other 02-22-2023 Evaluation note* Encounter Date Diagnosis Assessment Notes Treatment Notes Treatment Clinical Notes Nov, Schatzki's ring of distal esophagus (ICD-10 - K22.2) Nov, Eckert's esophagus without dysplasia (ICD-10 - K22.70) [employer] Other [facility] History general Narrative - Reported* Type Description Date Medical History scleroderma Medical History back pain Medical History GERD Medical History esophageal stricture Surgical History carpal tunnel release Surgical History EGD 11/2022 Hospitalization History blood clot in right leg 2005 [employer] Other 02-01-2023 History general Narrative - Reported* Type Description Date Medical History scleroderma Medical History back pain Medical History GERD Medical History esophageal stricture Surgical History carpal tunnel release Surgical History EGD 11/2022 Surgical History Colonoscopy 2020 Hospitalization History blood clot in right leg 2005 [employer] Other Evaluation noteNo assessment information available [facility]* Diagnosis Onset Date Resolution Status Dysphagia acute Ulcerative esophagitis acute [facility] Work Phone: Evaluation note* Diagnosis Onset Date Resolution Status Ulcerative esophagitis acute [facility] Work Phone: Evaluation noteNo [employer] Other Evaluation note* Diagnosis Onset Date Resolution Status Bleeding from varicose veins of left lower extremity acute [facility] Work Phone: Evaluation note* Diagnosis Onset Date Resolution Status Dysphagia acute GERD (gastroesophageal reflux disease) acute [facility] Work Phone: Evaluation note* Diagnosis Onset Date Resolution Status Dysphagia acute GERD (gastroesophageal reflux disease) acute Dysphagia acute GERD (gastroesophageal reflux disease) acute [facility] Work Phone: Evaluation note* Diagnosis Onset Date Resolution Status Dysphagia acute Dysphagia acute Chronic venous insufficiency of lower extremity acute GERD (gastroesophageal reflux disease) acute Medicare annual wellness visit, subsequent acute Scleroderma of esophagus acu te Screening mammogram for breast cancer acute [facility] Work Phone: Evaluation note* Diagnosis Presbylarynges- Primary [...] breast cancer acute Lumbar spondylosis noneactiv e [facility] Work Phone: Hospital Discharge instructions Additional [...] if you have any problems. -Office number [phone] Work Phone: Summary Purpose Family History [...] 6 week follow up; FF done at [facility] Reason for Visit Bleeding from varico se [...] section and content) DATE CREATED AUTHOR 09/14/2018 [facility] DATE CREATED AUTHOR AUTHOR'S ORGANIZ ATION 09/10/2019 [facility] DATE CREATED AUTHOR AUTHOR'S ORGANIZ ATION 02/16/2023 [facility] DATE CREATED AUTHOR AUTHOR'S ORGANIZ ATION 06/08/2024 [facility] DATE CREATED AUTHOR AUTHOR'S ORGANIZ ATION 07/17/[address] [facility] dical Specialists EPIC Goals (unrecognized [...] July 02, 2024 End: July 02, 2024 [employer] Relationship Specialty Start Date End Date Steve Armendariz MD [address] [place] [address] PCP - General Internal Medicine 07/03/23 [employer] Relationship Specialty Start Date End Date Steve Armendariz MD [address] [place] [address] PCP - General Internal Medicine 07/03/23 Team [...] BE BASED ON THE PRIMARY CLINICAL RECORDS. [employer] provides no warranty or guarantee of the accuracy or completeness of information in this document.
--- NOTE | 2024-09-23 14:09 | CA_ITS ---
Patient Name: BASHIR COATS MR#: [id number] : 1955 Exam Date: 09/23/2024 Ordering Doctor: DR ANGELIC VICK M.D. ECHOCARDIOGRAM REPORT PROCEDURE: CA ECHO DOPPLER COMPLETE INDICATIONS: Pulmonary HTN, QUIROZ, terminal operator med use, CTDZ COMPARISON: None. DESCRIPTION: COMPLETE ECHOCARDIOGRAM Real-time transthoracic echocardiography with 2D, M-mode, spectral and color flow Doppler performed. QUALITY: Technical quality was good. LEFT VENTRICLE: Normal chamber size. Moderate concentric left ventricular hypertrophy. Global left ventricular systolic function is normal. LV EF: Visual estimation of left ventricular ejection fraction is 65%. DIASTOLIC: Diastolic function is indeterminate. ATRIAL SEPTUM: LEFT ATRIUM: Mild dilatation. RIGHT ATRIUM: Normal chamber size. RIGHT VENTRICLE: Normal chamber size. Normal right ventricular systolic function. TRICUSPID VALVE: Normal mobility and thickness. No stenosis with mild regurgitation. No evidence of pulmonary hypertension. RVSP 27 mmHg MITRAL VALVE: Normal mobility and thickness. No evidence of mitral valve stenosis. Mild mitral annular calcification. Mild to moderate mitral regurgitation. AORTIC VALVE: Normal trileaflet appearance. Thickened aortic valve. Normal leaflet mobility. No evidence of aortic valve stenosis. No aortic regurgitation. AORTIC ROOT: Normal diameter and appearance. PULMONIC VALVE: Normal thickness and mobility. No stenosis. No regurgitation. PERICARDIUM: No evidence of pericardial effusion. IVC: Collapses with inspirations. Normal size. PLEURA: CONCLUSION: 1. Moderate concentric left ventricular hypertrophy with normal systolic function. LVEF is estimated at 65%. 2. Normal right ventricular size and systolic function. 3. Mild left atrial dilatation. 4. Mild to moderate mitral regurgitation. 5. Mild tricuspid regurgitation. 6. Normal right-sided pressures. Adult Echocardiography Procedure Report Left Ventricle LVEDD (3.7 - 5.6 cm): 4.01 cm LVESD (2.2 - 4.0 cm): 2.84 cm LVIVS thickness (0.6 - 1.2 cm): 1.35 cm LVPW thickness (0.5 - 1.0 cm): 1.43 cm e': 0.08 m/s E - e': 9.71 LVOT Max Gradient: 3.56 mm[Hg] LVOT Area (cm2): 0.94 m/s Peak Velocity (LVOT): 0.94 m/s Mean Velocity (LVOT): 0.61 m/s LVOT Diameter 1.95 cm Left Ventricular Ejection Fraction: 65 % Left Atrium LA Volume Index (2D A2C): 27.43 ml/m2 Left Atrium Systolic Dimension: 3.30 cm Mitral Valve MV E to A Ratio: 0.85 Mitral Valve A-Wave Peak Velocity: 0.92 m/s Mitral Valve E-Wave Peak Velocity: 0.78 m/s Right Ventricle RV Internal Diastolic Dimension: 3.72 cm Aorta AO Root Diam: 3.01 cm Ascending Ao Diam: 2.96 cm Aortic Valve AoV Area (Peak Ernesto): 1.93 cm2, 1.93 cm2 AoV Area (VTI): 1.87 cm2, 1.87 cm2 Peak Velocity(Antegrade Flow): 1.46 m/s Peak Gradient(Antegrade Flow): 8.48 mm[Hg] Mean Velocity(Antegrade Flow): 0.96 m/s Mean Gradient(Antegrade Flow): 4.32 mm[Hg] Velocity Time Integral: 34.31 cm Tricuspid Valve Peak Velocity (Regurgitant Flow): 2.38 m/s, 2.43 m/s, 2.40 m/s, 2.41 m/s Pulmonic Valve Mean Gradient: 2.17 mm[Hg], 1.82 mm[Hg] Mean Velocity: 0.68 m/s, 0.62 m/s Peak Velocity: 0.98 m/s Peak Gradient: 4.45 mm[Hg], 3.31 mm[Hg] Right Atrium Right Atrium Systolic Pressure: 66.06 ml, 66.06 ml Dictated by: Manoj Saavedra M.D. on 09/23/2024 at 19:54 Approved by: Manoj Saavedra M.D. on 09/23/2024 at 19:56
== END 2024-09-23 12:59 | disposition home or self-care (01) ==
LOC: CT 12:58
PROVIDERS: PCP Internal Medicine; Visit Provider Internal Medicine Rheumatology
DX: R06.02 Shortness of breath (principal); J84.10 Pulmonary fibrosis, unspecified; I27.0 Primary pulmonary hypertension; R06.00 Dyspnea, unspecified; M35.9 Systemic involvement of connective tissue, unspecified
CPT/HCPCS: 71250; 93306

== ENCOUNTER 2024-11-18 16:12 | Emergency (ER) | payer OTHER, SELFPAY ==
[2024-11-18 16:15] VITALS: BP 152/88; PULSE 89; TEMP 36.8; O2SAT 98; BMI 34.8
--- NOTE | 2024-11-18 16:20 | ED_ITS ---
HPI HPI - General Adult General Chief complaint: Extremity Problem, Nontraumatic Stated complaint: LOWER EXTREMITY Time Seen by Provider: 11/18/24 16:13 Source: patient Mode of arrival: walk-in History of Present Illness HPI narrative: 69-year-old female presents for pain and swelling to her left lower leg. She has had this for several days and there is been no recent injury. She has a remote history of DVT and has been off of blood thinners for 5 years. No chest pain or shortness of breath or symptoms in the right leg. The pain is moderate. Related Data Home Medications ?Medication ?Instructions ?Recorded ?Confirmed omeprazole 20 mg capsule,delayed 20 mg PO DAILY 11/18/24 11/18/24 release Allergies Allergy/AdvReac Type Severity Reaction Status Date / Time gentamicin Allergy Severe Unknown Verified 11/18/24 16:23 meloxicam Allergy Severe Rash Verified 11/18/24 16:23 Penicillins Allergy Severe Swelling Verified 11/18/24 16:23 of Lip/Tongue/Throat sulfamethoxazole (From Allergy Severe Unknown Verified 11/18/24 16:23 Bactrim) trimethoprim (From Bactrim) Allergy Severe Unknown Verified 11/18/24 16:23 Opioid HPI Opioid Management Most Recent Opioid Data: No Data to Display Review of Systems ROS Narrative A ten point review of systems is negative except as noted above. [facility] Medical History (Updated 11/18/24 @ 17:46 by Obie Velázquez MD) Raynauds disease ?I73.00 - Raynaud's syndrome without gangrene (ICD-10) Scleroderma ?M34.9 - Systemic sclerosis, unspecified (ICD-10) Myofascial pain syndrome ?M79.18 - Myalgia, other site (ICD-10) Fibromyalgia ?M79.7 - Fibromyalgia (ICD-10) Osteoarthritis of spinal facet joint ?M47.819 - Spondylosis without myelopathy or radiculopathy, site unspecified (ICD-10) Degenerative spondylolisthesis ?M43.10 - Spondylolisthesis, site unspecified (ICD-10) Systemic sclerosis ?M34.9 - Systemic sclerosis, unspecified (ICD-10) Osteoarthritis ?M19.90 - Unspecified osteoarthritis, unspecified site (ICD-10) DVT (deep venous thrombosis) ?I82.409 - Acute embolism and thrombosis of unspecified deep veins of unspecified lower extremity (ICD-10) Carpal tunnel syndrome of right wrist ?G56.01 - Carpal tunnel syndrome, right upper limb (ICD-10) Surgical History (Updated 11/18/24 @ 16:31 by Maral Mcdonough) Status post dilation of esophageal narrowing ?Z98.890 - Other specified postprocedural states (ICD-10) ?Z87.19 - Personal history of other diseases of the digestive system (ICD-10) Exam Narrative Exam Narrative: Nurses note and vital signs reviewed and patient is not hypoxic. General: The patient appears well and in no apparent distress. Patient is resting comfortably on cart. Skin: Warm, dry, no pallor noted. There is no rash noted. Head: Normocephalic, atraumatic Eye: Normal conjunctiva, no drainage Ears, Nose, Mouth, and Throat: oral mucosa is moist. Nares patent. Cardiovascular: Regular Rate and Rhythm Respiratory: Patient is in no distress, no accessory muscle use, lungs are clear to auscultation, no wheezing, rales or rhonchi Back: non-tender GI: Soft and nontender Musculoskeletal: She has palpable linear mass subcutaneously on the left lower leg distally and laterally. Several small varicose veins are also visible. Neurological: A&O, normal speech Psychiatric: Cooperative Constitutional Vital Signs, click to edit/add: Last Vital Signs Temp 98.2 F 11/18/24 16:15 Pulse 89 11/18/24 16:15 Resp 18 11/18/24 16:15 BP 152/88 H 11/18/24 16:15 Pulse Ox 98 11/18/24 16:15 O2 Del Method Room Air 11/18/24 16:15 Course Vital Signs Vital signs: Vital Signs Temperature 98.2 F 11/18/24 16:15 Pulse Rate 89 11/18/24 16:15 Respiratory Rate 18 11/18/24 16:15 Blood Pressure 152/88 H 11/18/24 16:15 Pulse Oximetry 98 11/18/24 16:15 Oxygen Delivery Method Room Air 11/18/24 16:15 Temperature 98.2 F 11/18/24 16:15 Pulse Rate 89 11/18/24 16:15 Respiratory Rate 18 11/18/24 16:15 Blood Pressure 152/88 H 11/18/24 16:15 Pulse Oximetry 98 11/18/24 16:15 Oxygen Delivery Method Room Air 11/18/24 16:15 Medical Decision Making MDM Narrative Medical decision making narrative: Ultrasound was performed but the patient refused to stay until the results came back. She was asked to follow-up with her doctor. She is fully able to make medical decisions for herself. Differential Diagnosis Differential Diagnosis: Superficial thrombophlebitis, DVT Discharge Plan Discharge Stand Alone Forms: Portal Instructions Chief Complaint: Extremity Problem, Nontraumatic Clinical Impression: Left leg pain, Left against medical advice Patient Disposition: Left Against Medical Advice Time of Disposition Decision: 17:46 Condition: Good Mode of Transportation: Private Vehicle Prescriptions / Home Meds: No Action omeprazole 20 mg capsule,delayed release(DR/EC) 20 mg PO DAILY Print Language: Liberian Instructions: Against Medical Advice (ED), Leg Pain (ED) Referrals: Steve Armendariz DO [Primary Care Provider] - 1 week
--- NOTE | 2024-11-18 16:20 | US_ITS ---
The [address] [address] Patient Name: BASHIR COATS MRN: [id number] date: 1955 Sex: F Assigned Patient Location: ER Current Patient Location: Accession/Order Number: [id number] Exam Date: 11/18/2024 17:02 Report Date: 11/18/2024 17:57 At the request of: DARREN KAY Procedure: US venous doppler LE LT EXAM: US venous doppler LE LT HISTORY: Pain, swelling, history of DVT COMPARISON: None. TECHNIQUE: Multiple sonographic images of the deep veins of the left lower extremity were obtained, supplemented with Doppler. FINDINGS: The deep veins of the left lower extremity are fairly well-visualized the groin to the mid calf. No filling defect is identified the deep veins to indicate a thrombus. There is normal compression augmentation of flow throughout. Along the lateral aspect of the left calf at the area of reported pain, there appears to be a superficial varicose vein with probable thrombus within. US/US venous doppler LE LT IMPRESSION: There is no direct or indirect evidence of deep vein thrombosis in the left lower extremity at this time. At the reported site of pain at the left calf laterally there appears to be a superficial varicose vein with probable thrombus within. Electronically authenticated by: AMIRA ALDRIDGE Date: 11/18/2024 17:57
--- OUTSIDE RECORDS SUMMARY | 2024-11-18 16:37 | XMS_ITS | CCD ---
Author Organization [facility] Inform ion [facility] Care Team Providers Care Registered Occupational Therapist Name Role Phone SKIE, PAVEL Unavailable Unavailable SKIE, PAVEL Unavailable Unavailable PAVLOCK, MAX CHAZ Unavailable Unavailable SELF, REFERRED Unavailable Unavailable [place] Unavailable Unavailable SKIE, PAVEL Unavailable Unavailable ELGAFY, GARETH K Unavailable Unavailable ELGAFY, GARETH K Unavailable Unavailable PAVLOCK, MAX CHAZ Unavailable Unavailable PAVLOCK, MAX CHAZ Unavailable Unavailable Pedro Ruiz Attending Provider Steve Armendariz Primary Care Provider DO Steve Armendariz Primary Care Provider [phone] MD Alex Newberry Attending Provider DO Steve [...] Unavailable DO Steve Armendariz Primary Care Provider [phone] VASHTI Damon Attending Provider [phone] Alex Newberry Unavailable [phone] DO Steve Armendariz Primary Care Provider MD Angelic Slaughter Attending Provider [phone] DO Steve Armendariz Primary Care Provider MD Miguel Sarah Attending Provider Angelic Slaughter Admitting UnavailAngelic Dodge Attending Unavailadri e Steve Armendariz [facility] Unavailable Miguel Sarah Admitting Unavailable Miguel Sarah Attending Unavailable Steve Armendariz Primary [facility] Unavailable Steve Armendariz MD Primary Care Provider BERTIN CORRAL Attending Unavailable BERTIN CORRAL Attending Unavailable BERTIN CORRAL Attending Unavailable BERTIN CORRAL Attending Unavailable BERTIN CORRAL Attending Unavailable BERTIN CORRAL Attending Unavailable BERTIN CORRAL Attending Unavailable SUJEY CAMARGO Attending Unavailable Allergies Allergy Classification Reported Allergen(s) Allergy Type Date of Onset Reaction(s) Facility Aminoglycosides (antibiotic) (1 source) Gentamicin Sulfate (SHELTER) Drug Allergy 01-31-20 18 Unknown Reaction [facility] Dihydrofolate Reductase Inhibitors (antibiotic) (1 source) Trimethoprim Drug Allergy 01-31-20 Headache [facility] Penicillins (antibiotic) (1 source) Penicillins Drug Allergy 01-31-20 18 Swelling of Lip/Tongue/Th roat [facility] Sulfonamides (antibiotic) (1 source) Sulfamethoxazole Drug Allergy 01-31-20 Headache [facility] (20 sources) Gentamicin Sulfate (SHELTER); Translations: [GENTAMICIN] Drug Allergy 04-21-20 15 Unknown [facility] (13 sources) meloxicam Drug Allergy 07-31-20 18 Rash [facility] (15 sources) Penicillins Drug allergy (disorder) 06-07-20 10 Swelling of Lip/Tongue/Th roat [facility] (11 sources) Sulfonamides (Antibiotic) Drug allergy (disorder) 07-31-20 18 Unknown Reaction [facility] (20 sources) Sulfamethoxazole Drug Allergy 01-31-20 18 Unknown [facility] (13 sources) Trimethoprim Drug Allergy 01-31-20 18 Headache [facility] (7 sources) meloxicam Drug Allergy Unknown [facility] Other (7 sources) Sulfamethoxazole / Trimethoprim Drug Allergy Unknown [facility] Other (7 sources) Sulfonamides (Antibiotic) Propensity to adverse reactions Unknown [facility] Other (7 sources) Penicillian V Potassium Propensity to adverse reactions Unknown [facility] Other (16 sources) gentamycin Propensity to adverse reactions 10-25-19 24 Unknown, Unknown Reaction [facility] (1 source) meloxicam Drug Allergy [facility] (4 sources) Penicillin Drug Allergy Comment:lips swell up [facility] Other (13 sources) Penicillin V Drug Allergy 10-25-19 24 Unknown, Unknown Reaction [facility] (4 sources) Substance with sulfonamide structure and antibacterial mechanism of action (substance) Drug allergy 12-07-19 16 Unknown [facility] Other (1 source) Allergies Reconciled Propensity to adverse reactions Unknown [facility] Other (13 sources) Gentamicin in Saline Drug allergy 10-25-19 24 Comment:made eye bloody [facility] (1 source) patient allergy list reviewed by nurse or physicia Propensity to adverse reactions 12-07-19 16 Comment:Done [facility] Other (3 sources) meloxicam Drug Allergy 07-03-20 23 Unknown [facility] (3 sources) Penicillin G Drug Allergy 07-03-20 Unknown [facility] Medications Current Medications Medication Drug Class(es) Dates Sig (Normalized) Sig (Original) acetaminophen 500 mg oral tablet (14 sources) Start: 01-30-2018 Acetaminophen (Tylenol Extra Strength) 500 mg Tablet Active 500 MG PO As Directed January 29, 2018 11:00pm Aloe Vera (14 sources) Start: 01-30-2018 Aloe Vera Active 1 TAB PO As Directed January 30, 2018 8:53am Start: 01-30-2018 End: 09-20-2022 Aloe Vera 5,000 mg Capsule D iscontinued 1 TAB PO As Directed January 29, 2018 11:00pm September 20, 2022 12:26pm Start: 01-30-2018 End: 09-20-2022 Aloe Vera Discontinued [...] PO As Directed January 29, 2018 11:00pm take 2 tablets by mouth in the [...] 2018 11:00pm cholecalciferol 0.025 mg oral capsule (20 sources) Vitamin D Start: 01-30-2018 Cholecalcifero l (Vitamin D3) (Vitamin D3) 1,000 unit Capsule Active 6000 UNIT PO As Directed January 29, 2018 11:00pm Start: 01-30-2018 Cholecalcifero l (Vitamin D3) (Vitamin [...] Restasis Active Cyclosporine (Restasis) 0.05 % dropperette (6 sources) Start: 05-27-2024 take 1 drop(s) into the eye(s) every twelve hours Cyclosporine (Restasis) 0.05 % dropperette Active 1 DROPS EYE-BOTH Every 12 hours May 26, 2024 11:00pm Start: 05-27-2024 take 1 drop(s) into the eye(s) every twelve hours Cyclosporine (Restasis) 0.05 % dropperette Active 1 DROPS EYE-BOTH Every 12 hours May 27, 2024 12:00am Digestive Enzymes (Enzyme Digest) Capsule (14 sources) Start: 01-30-2018 Digestive Enzy mes (Enzyme Digest) Capsule Active 1 CAP PO As Directed January 30, 2018 8:53am Start: 01-30-2018 take 1 capsule by mo ut once daily as needed Digestive Enzymes (Enzyme Digest) Capsule Active 1 CAP PO Daily as needed for as directed January 29, 2018 11:00pm Start: 01-30-2018 take 1 capsule by mo [...] January 29, 2018 11:00pm Eye Promise Restore (12 sources) Start: 09-20-2022 take 1 tablet by gladis th once daily [facility] Promise Restore Active 1 TAB PO Daily September 20, 2022 1:00am Start: 09-20-2022 take 1 tablet by mouth once da sarah Eye Promise Restore Active 1 TAB PO Daily September 20, 2022 12:00am Eye Vitamins (7 sources) Eye Vitamins Act jorge Ez Tears (12 sources) Start: 09-20-2022 take 1 tablet by [...] tablet by mouth once da sarah Garlic Tablet Active 1 TAB PO Daily January 29, 2018 11:00pm Start: 01-30-2018 take 1 tablet by mouth [...] by mouth. Active Garlic Active Grape Seed Ext-Bioflav,[place] (3 sources) Start: 01-30-2018 take 1 tablet by mouth once daily Grape Seed Ext-Bioflav,[place] Active 1 TAB PO Daily January 30, 2018 12:00am Grape Seed Ext-Bioflav,[place] 50-250 mg Capsule (1 source) Start: 01-30-2018 take 1 capsule by mouth once daily Grape Seed Ext-Bioflav,[place] 50-250 mg Capsule Active 1 TAB PO Daily January 29, 2018 11:00pm Grape Seed Extract (10 sources) GRAPE SEED EXTRA CT PO Take by mouth. Active take 2.5 tablets by mouth once d aily Grape Seed Extract 100 MG 2.5 tablets orally daily Active Grape Seed Extra ct Active Grape Seed Xt-Bioflav,[place] (10 sources) Start: 01-30-2018 Grape Seed Xt- Bioflav,[place] Active 1 TAB PO As Directed January 30, 2018 8:53am Start: 01-30-2018 take 1 tablet by gladis th once daily Grape Seed Xt-Bioflav,[place] Active 1 TAB PO Daily January 30, 2018 12:00am Start: 01-30-2018 take 1 tablet by gladis th once daily Grape Seed Xt-Bioflav,[place] Active 1 TAB PO Daily January 29, 2018 11:00pm Start: 01-30-2018 Grape Seed Xt- Bioflav,[place] Active 1 TAB PO As Directed January 29, 2018 11:00pm Lactobacillus Combination No .4 (Probiotic) 3 billion cell Capsule (14 sources) Start: 01-30-2018 Lactobacillus Combination No.4 (Probiotic) [...] oral tablet (20 sources) Start: 09-20-2022 take 1 tablet by mouth at bedtime as needed Melatonin 3 mg Tablet Active 3 MG PO Bedtime as needed for Insomnia September 20, 2022 12:00am Start: 01-30-2018 End: 09-20-2022 Melatonin 1 mg Tablet Discon tinued 1 TAB PO As Directed January 29, 2018 11:00pm September 20, 2022 12:12pm Start: 01-30-2018 End: 09-20-2022 Melatonin Discontinued 1 TAB PO As Directed January 30, 2018 12:00am September 20, 2022 1:12pm Melatonin 3 MG t ablet dispersible Take by mouth. Active Melatonin Active [place] Extract (20 sources) Start: 01-30-2018 [place] Ext ract Active 1 TAB PO As Directed January 30, 2018 8:53am Start: 01-30-2018 take 1 capsule by mo uth once daily [place] Extract 250 mg Capsule Active 1 TAB PO Daily January 29, 2018 11:00pm Start: 01-30-2018 take 1 tablet by mouth once da sarah [place] Extract Active 1 TAB PO Daily January 30, 2018 12:00am Start: 01-30-2018 take 1 tablet by mouth once da sarah [place] Extract Active 1 TAB PO Daily January 29, 2018 11:00pm Start: 01-30-2018 [place] Ext ract Active 1 TAB PO As Directed January 29, 2018 11:00pm [place] Extra ct 250 MG capsule Take by mouth. Active [place] Extra ct Active [place] 9-Vue-Vub-Fish Oil (Fi sh Oil) 1,000 mg (120 mg-180 mg) Capsule (14 sources) Start: 01-30-2018 [place] 3-Dha-Ep a-Fish Oil (Fish Oil) 1,000 mg (120 mg-180 mg) Capsule Active 1 TAB PO As Directed January 30, 2018 8:53am Start: 01-30-2018 End: 09-20-2022 [place] 3-Fkf-Djp-Fish Oil (Fi sh Oil) 1,000 mg (120 mg-180 mg) Capsule Discontinued 1 TAB PO As Directed January 30, 2018 12:00am September 20, 2022 1:26pm Start: 01-30-2018 End: 09-20-2022 [place] 0-Fup-Kcp-Fish Oil (Fi sh Oil) 1,000 mg (120 mg-180 mg) Capsule Discontinued 1 TAB PO As Directed January 29, 2018 11:00pm September 20, 2022 12:26pm Start: 01-30-2018 [place] 3-Dha-Ep a-Fish Oil (Fish Oil) 1,000 mg [...] 29, 2018 11:00pm January 30, 2018 7:53am Aloe Vera Gel (1 source) Start: 01-30-2018 End: 01-30-2018 Aloe Vera Gel Discontinued 1 TAB TOPICAL January 29, 2018 11:00pm January 30, 2018 7:53am Calcium (7 sources) Phosphate Binder, Calcium Calcium Not-Taking/P RN Calcium Active calcium carbonate 500 mg chewable tablet (14 sources) Start: 01-30-2018 End: 12-06-2022 take 1 tablet by mouth three times daily as needed Calcium Carbonate (Tums) 200 mg calcium (500 mg) Tablet,Chewable Discontinued 200 MG PO Three times daily as needed for Acid Reflux January 29, 2018 11:00pm December 06, 2022 11:56am calcium carbonate 1000 mg / magnesium hydroxide 200 mg chewable tablet (11 sources) Start: 01-30-2018 End: 05-27-2024 Calcium Carbonate-Mag Hydroxid 1,000-200 mg Tablet,Chewable Discontinued 1 TAB PO As Directed January 29, 2018 11:00pm May 27, 2024 10:29am choline 650 mg oral tablet (14 sources) Start: 01-30-2018 End: 01-30-2018 Choline Dihydrogen Citrate 650 mg Tablet Discontinued TABLET January 29, 2018 11:00pm January 30, 2018 7:52am Start: 01-30-2018 End: 01-30-2018 Choline Dihydrogen Citrate D iscontinued TABLET January 30, 2018 12:00am January 30, 2018 8:52am Cyclosporine (Restasis) 0.05 % Dropperette (12 sources) Start: 01-30-2018 End: 05-27-2024 take 1 drop(s) into the eye(s) once daily Cyclosporine (Restasis) 0.05 % Dropperette Discontinued 1 DROPS OPHTHALMIC Daily January 29, 2018 11:00pm May 27, 2024 10:29am Start: 01-30-2018 End: 05-27-2024 take 1 drop(s) [...] Pump Inhibitor Start: 09-20-2022 End: 12-06-2022 take 1 capsule by mouth twice daily Omeprazole 40 mg capsule,delayed release(DR/EC) Discontinued 40 MG PO Twice daily 60 September 20, 2022 12:00am December 06, 2022 11:57am Start: 01-30-2018 End: 05-27-2024 take 1 capsule by mouth once daily Omeprazole 20 mg capsule,delayed release(DR/EC) Discontinued 20 MG PO Daily 30 May 27, 2024 10:34am May 27, 2024 10:38am take 1 capsule by mo uth before mealtime omeprazole (PriLOSEC) [address] capsule Take 10 mg by mouth in the morning. Take before meals. Do not crush or chew. . Active polyethylene glycol 400 4 mg/ml / propylene glycol 3 mg/ml ophthalmic solution (12 sources) Start: 09-20-2022 End: 06-09-2024 Peg 400-Propylene Glycol (Pf) (Systane (Pf)) 0.4-0.3 % Dropperette Discontinued 1 DROPS EYE-BOTH 2-4 TIMES PER DAY as needed for Dry Eye(S) September 20, 2022 12:00am June 09, 2024 1:23pm predniSONE 20 mg oral tablet (5 sources) Start: 01-29-2023 take 1 tablet by mouth every twelve hours predniSONE 20 MG 1 tablet Orally bid for 5 day(s) Jan, Not-Taking/PRN raNITIdine 150 mg oral tablet (14 sources) Histamine-2 Receptor Antagonist Start: 01-30-2018 End: 09-20-2022 Ranitidine Hcl (Zantac) 150 mg Tablet Discontinued 2 TAB PO As Directed January 29, 2018 11:00pm September 20, 2022 12:26pm tiZANidine 4 mg oral capsule (12 sources) Central alpha-2 Adrenergic Agonist Start: 09-20-2022 End: 05-27-2024 take 1 capsule by mouth once daily at bedtime as needed for pain Tizanidine 4 mg Capsule Discontinued 4 MG PO Daily at bedtime as needed for Pain September 20, 2022 12:00am May 27, 2024 10:29am traMADol hydrochloride 50 mg oral tablet (18 sources) Opioid Agonist Start: 01-30-2018 End: 09-20-2022 Tramadol 50 mg Tablet Discontinued 50 MG PO As Directed January 29, 2018 11:00pm September 20, 2022 12:15pm Zinc (19 sources) Start: 09-20-2022 End: 05-27-2024 take 1 tablet by mouth once daily Zinc 50 mg Tablet Discontinued 50 MG PO Daily September 20, 2022 12:00am May 27, 2024 10:29am Start: 09-20-2022 End: 05-27-2024 take 50 mg [...] disease without esophagitis] Onset: 4 01-30-2018 Chronic Comment on above: Problem List clean-u p per request of Phys. EHR Cmte Menopausal disorders (1 source) Primary ovarian failure; [...] group home (current) drug therapy; Translations: [OTH CUSTODIAL CURRENT DRUG THERAPY] Onset: 3 Episodic Other and unspecified benign neoplasm (1 source) Hemangioma of other sites; Translations: [HEMANGIOMA OF OTHER SITES] Onset: 8 Episodic Other circulatory disease (1 source) Raynaud's syndrome without gangrene; Translations: [RAYNAUD'S SYNDROME WITHOUT GANGRENE] Onset: 8 Chronic Other circulatory disease (3 sources) Raynaud's disease; Translations: [Raynaud's syndrome without gangrene] Onset: 0 07-10-2024 Chronic Other circulatory disease (1 source) Telangiectasia disorder; Translations: [Nevus, non-neoplastic] 08-13-2024 Episodic Other circulatory disease (1 source) Nevus, non-neoplastic; Translations: [Other and unspecified capillary diseases] 08-13-2024 Episodic Other connective tissue disease (1 source) Fibromyalgia; Translations: [Fibromyalgia] Episodic Other diseases of veins and lymphatics (4 sources) Peripheral venous insufficiency; Translations: [Venous insufficiency (chronic) (peripheral)] Episodic Other diseases of veins and lymphatics (6 sources) Venous insufficiency (chronic) (peripheral); Translations: [Venous (peripheral) insufficiency, unspecified] Episodic Other diseases of veins and lymphatics (7 sources) Venous insufficiency of leg; Translations: [Venous insufficiency (chronic) (peripheral)] Onset: 4 06-29-2024 Episodic Other diseases of veins and lymphatics (1 source) Vascular insufficiency; Translations: [Venous insufficiency (chronic) (peripheral)] 08-13-2024 Episodic Other gastrointestinal disorders (20 sources) Dysphagia; Translations: [Dysphagia, unspecified] Onset: 4 01-30-2018 Episodic Comment on above: Problem List clean-u p per request of Phys. SUZETTE Cmte Other gastrointestinal disorders (11 sources) Dysphagia, unspecified; [...] conditions (not mental disorders or infectious disease) (20 sources) Patient encounter status; Translations: [Encounter for screening for malignant neoplasm of colon] 03-17-2021 Episodic Comment on above: Problem List clean-u p per request of Phys. EHR Cmte Other skin disorders (1 source) Hemosiderin pigmentation of lower limb due to varicose veins of lower limb; Translations: [Other specified disorders of pigmentation] 08-13-2024 Episodic Other skin disorders (1 source) Other specified disorders of pigmentation; Translations: [Dyschromia, unspecified] 08-13-2024 Episodic Other upper respiratory disease (2 sources) Senile voice; Translations: [Other diseases of larynx] 07-15-2024 Episodic Other upper respiratory disease (5 sources) Hoarse; Translations: [Dysphonia] 07-15-2024 Episodic Other upper respiratory infections (1 source) Acute pharyngitis; Translations: [Acute pharyngitis, unspecified] Episodic Peripheral and visceral atherosclerosis (10 sources) Atherosclerosis of [place] arteries of extremities with intermittent claudication, bilateral legs; Translations: [Atherosclerosis of [place] arteries of the extremities] Onset: 2 Chronic Phlebitis; thrombophlebitis and thromboembolism (2 sources) History of thromboembolism of vein; Translations: [Personal history of other venous thrombosis and embolism] Onset: 6 Episodic Pulmonary heart disease (1 source) Primary pulmonary hypertension; Translations: [PRIMARY PULMONARY HYPERTENSION] Onset: 2 Chronic Residual codes; unclassified (1 source) Postmenopausal state; Translations: [Asymptomatic menopausal state] Episodic Residual codes; unclassified (1 source) Bilateral lower limb edema; Translations: [Localized edema] 08-13-2024 Episodic Residual codes; unclassified (1 source) Localized edema; Translations: [Edema] 08-13-2024 Episodic Skin and subcutaneous tissue infections (1 source) Cellulitis of toe; Translations: [Cellulitis of unspecified toe] Episodic Spondylosis; intervertebral disc disorders; other back problems (11 sources) Spondylosis without myelopathy or radiculopathy, lumbar [...] 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: 0 Chronic Comment on above: Echo: LVEF65%, fifi l RV size/function, RVSP 27, mod MR - 09/2024,HRCT chest: normal - 09/2024 Varicose veins of lower extremity (20 sources) Varicose ulcer of lower extremity; Translations: [Varicose veins of left lower extremity with ulcer of unspecified site] Onset: Episodic Past or Other Problems Problem Classification [...] Test Name Value Interpretation Reference Range Facility Hemoglobin [Mass/volume] in Bloodon 09-16-2024 Hemoglobin (Bld) [Mass/Vol] Hemoglobin [Mass/volume] in Blood 12.0-16.0 [facility] Glucose mean value [Mass/vol ume] in Blood Estimated from glycated hemoglobinon 07-11-2024 Average glucose Estimated from glycated hemoglobin (Bld) [Mass/Vol] 111 mg/dL [facility] Laboratory - Chemistry and C hemistry - challengeon 07-11-2024 TSH Qn 2.496 m[IU]/L 0.358-3.740 [facility] - Hematology and Cell countson 07-11-2024 HbA1c (Bld) [Mass fraction] 5.5 % 4.5-6.2 [facility] Comment on above: ADA RECOMMENDED LIMI T 4.0 - 6.0ADA THERAPEUTIC TARGET < 7.0ACTION SUGGESTED> 7.0 No Panel Informationon 07-11 25-Hydroxy Vitamin D Total 74.0 ng/mL [facility] Comment on above: <20 ng/mL Vit D defi cient20-<30 ng/mL Vit D crenekzdidqq73-380 ng/mL Vit D sufficient>100 ng/mL Potential Toxicity Basophils Auto (Bld) [#/Vol] on 06-17-2024 Basophils (Bld) [#/Vol] 0.0 10 3/uL 0.0-0.1 [facility] Basophils/100 WBC Auto (Bld) on 06-17-2024 Basophils/100 WBC (Bld) 0.6 % 0.2-2.0 [facility] Eosinophils/100 WBC Auto (Bl d)on 06-17-2024 Eosinophils/100 WBC (Bld) 1.7 % 0.9-7.0 [facility] Erythrocyte distribution wid th Auto (RBC) [Ratio]on 06-17-2024 Erythrocyte distribution width (RBC) [Ratio] 13.8 % 11.0-15.0 [facility] Estimated glomerular filtrat ion rate (GFR) non- Americanon 06-17-2024 GFR/1.73 sq M.predicted among non-blacks MDRD (S/P/Bld) [Vol rate/Area] 60 mL/min/{1.73_m2} >=60 [facility] Globulin Calc (S) [Mass/Vol] on 06-17-2024 Globulin (S) [Mass/Vol] 3.1 g/dL [facility] Hematocrit Auto (Bld) [Volum e fraction]on 06-17-2024 Hematocrit (Bld) [Volume fraction] 39.9 % 36.0-48.0 [facility] Hemoglobin [Mass/volume] in Bloodon 06-17-2024 Hemoglobin (Bld) [Mass/Vol] 13.3 g/dL 12.0-16.0 [facility] Laboratory - Chemistry and C hemistry - challengeon 06-17-2024 Albumin [Mass/Vol] 3.3 g/dL Low 3.4-5.0 [facility] ALP [Catalytic activity/Vol] 73 U/L 46-116 [facility] ALT [Catalytic activity/Vol] 24 U/L 14-59 [facility] AST [Catalytic activity/Vol] 19 U/L 15-37 [facility] Bilirubin [Mass/Vol] 0.4 mg/dL 0.2-1.0 [facility] Calcium [Mass/Vol] 9.2 mg/dL 8.5-10.1 [facility] Chloride [Moles/Vol] 107 mmol/L 98-107 [facility] CO2 [Moles/Vol] 28.8 mmol/L 21.0-32.0 [facility] Creatinine [Mass/Vol] 0.93 mg/dL 0.55-1.02 [facility] GFR/1.73 sq M.predicted MDRD (S/P/Bld) [Vol rate/Area] mL/min/{1.73_m2} >=60 [facility] Glucose [Mass/Vol] 97 mg/dL 74-106 [facility] Potassium [Moles/Vol] 3.9 mmol/L 3.5-5.1 [facility] Protein [Mass/Vol] 6.4 g/dL 6.4-8.2 [facility] Sodium [Moles/Vol] 144 mmol/L 136-145 [facility] Urea nitrogen [Mass/Vol] 22.0 mg/dL High 7.0-18.0 [facility] Urea nitrogen/Creatinine [Mass ratio] 23.7 mg/mg [facility] Bilirubin Ql (U) Negative NEGATIVE [facility] Glucose (U) [Mass/Vol] Negative NEGATIVE [facility] Ketones Ql (U) Negative NEGATIVE [facility] pH (U) 5.5 [pH] 5.0-9.0 [facility] Specific gravity (U) [Rel density] <=1.005 Abnormal 1.005-1.025 [facility] Urobilinogen Qn (U) 0.2 {Lora'U}/dL 0.2-1.0 [facility] Laboratory - Hematology and Cell countson 06-17-2024 ESR (Bld) [Velocity] 27 mm/h <=30 [facility] Immature granulocytes/100 WBC (Bld) 0.1 % 0.0-0.5 [facility] - Specimen inform ationon 06-17-2024 Appearance (U) CLEAR CLEAR [facility] Color (U) LT. YELLOW YELLOW [facility] Laboratory - Urinalysison Leukocyte esterase Test strip Ql (U) SMALL Abnormal NEGATIVE [facility] Mucus Ql (Urine sed) NONE SEEN NONE SEEN [facility] Nitrite Ql (U) Negative NEGATIVE [facility] Protein Ql (U) Negative NEG/TRACE [facility] Leukocytes [#/volume] correc pan for nucleated erythrocytes in Blood by Automated counon 06-17-2024 WBC corrected for nucl RBC Auto (Bld) [#/Vol] 7.0 10 3/uL 4.0-11.0 [facility] Lymphocytes Auto (Bld) [#/Vo l]on 06-17-2024 Lymphocytes (Bld) [#/Vol] 2.7 10 3/uL 1.2-3.8 [facility] Lymphocytes/100 WBC Auto (Bl d)on 06-17-2024 Lymphocytes/100 WBC (Bld) 38.7 % 20.5-60.0 [facility] MCH Auto (RBC) [Entitic mass ]on 06-17-2024 MCH (RBC) [Entitic mass] 30.2 pg 26.7-34.0 [facility] MCHC Auto (RBC) [Mass/Vol]on 06-17-2024 MCHC (RBC) [Mass/Vol] 33.3 g/dL 29.9-35.2 [facility] MCV Auto (RBC) [Entitic vol] on 06-17-2024 MCV (RBC) [Entitic vol] 90.5 fL 81.0-99.0 [facility] Monocytes Auto (Bld) [#/Vol] on 06-17-2024 Monocytes (Bld) [#/Vol] 0.5 10 3/uL 0.3-0.8 [facility] Monocytes/100 WBC Auto (Bld) on 06-17-2024 Monocytes/100 WBC (Bld) 7.2 % 1.7-12.0 [facility] Neutrophils Auto (Bld) [#/Vo l]on 06-17-2024 Neutrophils (Bld) [#/Vol] 3.6 10 3/uL 1.4-6.5 [facility] Neutrophils/100 WBC Auto (Bl d)on 06-17-2024 Neutrophils/100 WBC (Bld) 51.7 % 43.0-75.0 [facility] No Panel Informationon 06-17 Eosinophils # (Auto) 0.1 10 3/uL 0.0-0.7 [facility] Immature Granulocyte # (Auto) 0.01 10 3/uL 0.00-0.03 [facility] Total Complement (CH50) 55 U/mL >41 [facility] Comment on above: Age Male Female [...] to determine out of range values.Performed at: [facility] [place] [address] [id number] Director: Savage Vaughan PhD, Phone: [phone] Urine Bacteria TRACE #/HPF Abnormal NONE SEEN [facility] Urine Occult Blood TRACE-I NEGATIVE [facility] Urine RBC 0-2 #/HPF 0-2 [facility] Urine Squamous Epithelial Cells FEW #/LPF Abnormal NONE/RARE [facility] Urine WBC 2-5 #/HPF Abnormal NONE SEEN [facility] Platelet mean volume Auto (B ld) [Entitic vol]on 06-17-2024 Platelet mean volume (Bld) [Entitic vol] 8.8 fL Low 9.5-13.5 [facility] Platelets Auto (Bld) [#/Vol] on 06-17-2024 Platelets (Bld) [#/Vol] 177 10 3/uL 150-450 [facility] RBC Auto (Bld) [#/Vol]on RBC (Bld) [#/Vol] 4.41 10 6/uL 4.20-5.40 [facility] Serum or plasma albumin/glob ulin mass ratioon 06-17-2024 Albumin/Globulin [Mass ratio] 1.1 {ratio} [facility] Serum or plasma anion gap de terminationon 06-17-2024 Anion gap [Moles/Vol] 12.1 mmol/L [facility] Serum or plasma complement C 3 measurement (mass/volume)on 06-17-2024 Complement C3 [Mass/Vol] 125 mg/dL 82-167 [facility] Serum or plasma complement C 4 measurement (mass/volume)on 06-17-2024 Complement C4 [Mass/Vol] 20 mg/dL 12-38 [facility] Comment on above: Performed at: [facility] [place] [id number] Director: Savage Vaughan PhD, Phone: [phone] US venous duplex LE BIon US venous duplex LE [facility] [place] [address] Ultrasound Report Signed Patient: Bashir Coats MR#: [id number] : 1955 Acct:[id number] Age/Sex: 68 / F ADM Date: 01/14/24 Loc: Room: Type: [facility] Attending Dr: Angelic Slaughter MD Ordering [...] arising from it. US/US venous duplex LE IMPRESSION: No evidence for deep vein thrombosis [...] Bucky Reynaga M.D.01/15/2024 12:26 PM Dictation Location: [place] [address] Tech: Lizeth Dixon Transcribed By: COLTON 01/15/24 1226 Dictated By: Bucky Reynaga MD 01/15/241223 Signed By: 01/15/24 1226 Normal [facility] Automated epithelial cells c ount in urine sediment (number/area)on 12-25-2023 Epithelial cells Auto (Urine sed) [#/Area] FEW #/LPF NONE/RARE [facility] Automated leukocytes count i n urine sediment (number/area)on 12-25-2023 WBC Auto (Urine sed) [#/Area] 5-10 #/HPF 0-2 [facility] Automated urine specific gra vity by refractometryon 12-25-2023 Specific gravity Refractometry automated (U) [Rel density] 1.010 1.005-1.025 [facility] Basophils Auto (Bld) [#/Vol] on 12-25-2023 Basophils (Bld) [#/Vol] 0.1 10 3/uL 0.0-0.1 [facility] Basophils/100 WBC Auto (Bld) on 12-25-2023 Basophils/100 WBC (Bld) 0.8 % 0.2-2.0 [facility] Bilirubin Auto test strip (U ) [Mass/Vol]on 12-25-2023 Bilirubin (U) [Mass/Vol] Negative NEGATIVE [facility] Casts typing in urine sedime nt by light microscopyon 12-25-2023 Casts LM Nom (Urine sed) NONE SEEN #/LPF NONE SEEN [facility] Color Auto (U)on 12-25-2023 Color (U) LT. YELLOW YELLOW [facility] Eosinophils/100 WBC Auto (Bl d)on 12-25-2023 Eosinophils/100 WBC (Bld) 1.4 % 0.9-7.0 [facility] Erythrocyte distribution wid th Auto (RBC) [Ratio]on 12-25-2023 Erythrocyte distribution width (RBC) [Ratio] 13.8 % 11.0-15.0 [facility] Estimated glomerular filtrat ion rate (GFR) non- Americanon 12-25-2023 GFR/1.73 sq M.predicted among non-blacks MDRD (S/P/Bld) [Vol rate/Area] mL/min/{1.73_m2} >=60 [facility] Globulin Calc (S) [Mass/Vol] on 12-25-2023 Globulin (S) [Mass/Vol] 3.5 g/dL [facility] Hematocrit Auto (Bld) [Volum e fraction]on 12-25-2023 Hematocrit (Bld) [Volume fraction] 39.7 % 36.0-48.0 [facility] Hemoglobin [Mass/volume] in Bloodon 12-25-2023 Hemoglobin (Bld) [Mass/Vol] 12.6 g/dL 12.0-16.0 [facility] Ketones Auto test strip (U) [Mass/Vol]on 12-25-2023 Ketones (U) [Mass/Vol] Negative NEGATIVE [facility] Laboratory - Chemistry and C hemistry - challengeon 12-25-2023 Albumin [Mass/Vol] 3.3 g/dL 3.4-5.0 [facility] ALP [Catalytic activity/Vol] 74 U/L 46-116 [facility] ALT [Catalytic activity/Vol] 27 U/L 14-59 [facility] AST [Catalytic activity/Vol] 17 U/L 15-37 [facility] Bilirubin [Mass/Vol] 0.3 mg/dL 0.2-1.0 [facility] Calcium [Mass/Vol] 9.0 mg/dL 8.5-10.1 [facility] Chloride [Moles/Vol] 104 mmol/L 98-107 [facility] CO2 [Moles/Vol] 29.7 mmol/L 21.0-32.0 [facility] Creatinine [Mass/Vol] 0.91 mg/dL 0.55-1.02 [facility] GFR/1.73 sq M.predicted MDRD (S/P/Bld) [Vol rate/Area] mL/min/{1.73_m2} >=60 [facility] Glucose [Mass/Vol] 94 mg/dL 74-106 [facility] Potassium [Moles/Vol] 3.7 mmol/L 3.5-5.1 [facility] Protein [Mass/Vol] 6.8 g/dL 6.4-8.2 [facility] Sodium [Moles/Vol] 143 mmol/L 136-145 [facility] Urea nitrogen [Mass/Vol] 18.0 mg/dL 7.0-18.0 [facility] Urea nitrogen/Creatinine [Mass ratio] 19.8 mg/mg [facility] Laboratory - Hematology and Cell countson 12-25-2023 ESR (Bld) [Velocity] 29 mm/h <=30 [facility] Immature granulocytes/100 WBC (Bld) 0.3 % 0.0-0.5 [facility] Leukocytes [#/volume] correc pan for nucleated erythrocytes in Blood by Automated counon 12-25-2023 WBC corrected for nucl RBC Auto (Bld) [#/Vol] 8.0 10 3/uL 4.0-11.0 [facility] Lymphocytes Auto (Bld) [#/Vo l]on 12-25-2023 Lymphocytes (Bld) [#/Vol] 2.6 10 3/uL 1.2-3.8 [facility] Lymphocytes/100 WBC Auto (Bl d)on 12-25-2023 Lymphocytes/100 WBC (Bld) 32.4 % 20.5-60.0 [facility] MCH Auto (RBC) [Entitic mass ]on 12-25-2023 MCH (RBC) [Entitic mass] 29.3 pg 26.7-34.0 [facility] MCHC Auto (RBC) [Mass/Vol]on 12-25-2023 MCHC (RBC) [Mass/Vol] 31.7 g/dL 29.9-35.2 [facility] MCV Auto (RBC) [Entitic vol] on 12-25-2023 MCV (RBC) [Entitic vol] 92.3 fL 81.0-99.0 [facility] Monocytes Auto (Bld) [#/Vol] on 12-25-2023 Monocytes (Bld) [#/Vol] 0.6 10 3/uL 0.3-0.8 [facility] Monocytes/100 WBC Auto (Bld) on 12-25-2023 Monocytes/100 WBC (Bld) 7.0 % 1.7-12.0 [facility] Mucus LM Ql (Urine sed)on Mucus Ql (Urine sed) TRACE NONE SEEN [facility] Neutrophils Auto (Bld) [#/Vo l]on 12-25-2023 Neutrophils (Bld) [#/Vol] 4.6 10 3/uL 1.4-6.5 [facility] Neutrophils/100 WBC Auto (Bl d)on 12-25-2023 Neutrophils/100 WBC (Bld) 58.1 % 43.0-75.0 [facility] No Panel Informationon 12-24 Eosinophils # (Auto) 0.1 10 3/uL 0.0-0.7 [facility] Immature Granulocyte # (Auto) 0.02 10 3/uL 0.00-0.03 [facility] Total Complement (CH50) 57 U/mL >41 [facility] Comment on above: Age Male Female [...] to determine out of range values.Performed at: [facility] [address] [id number] Director: Savage Vaughan PhD, Phone: [phone] Platelet mean volume Auto (B ld) [Entitic vol]on 12-25-2023 Platelet mean volume (Bld) [Entitic vol] 8.9 fL 9.5-13.5 [facility] Platelets Auto (Bld) [#/Vol] on 12-25-2023 Platelets (Bld) [#/Vol] 201 10 3/uL 150-450 [facility] Protein Auto test strip (U) [Mass/Vol]on 12-25-2023 Protein (U) [Mass/Vol] Negative NEG/TRACE [facility] RBC Auto (Bld) [#/Vol]on RBC (Bld) [#/Vol] 4.30 10 6/uL 4.20-5.40 [facility] Serum or plasma albumin/glob ulin mass ratioon 12-25-2023 Albumin/Globulin [Mass ratio] 0.9 {ratio} [facility] Serum or plasma anion gap de terminationon 12-25-2023 Anion gap [Moles/Vol] 13.0 mmol/L [facility] Serum or plasma complement C 3 measurement (mass/volume)on 12-25-2023 Complement C3 [Mass/Vol] 121 mg/dL 82-167 [facility] Serum or plasma complement C 4 measurement (mass/volume)on 12-25-2023 Complement C4 [Mass/Vol] 20 mg/dL 12-38 [facility] Comment on above: Performed at: [facility] [place] [address] [place], [place] [id number] Director: Savage Vaughan PhD, Phone: [phone] Specific gravity Auto test s trip (U) [Rel density]on 12-25-2023 Specific gravity (U) [Rel density] CLEAR CLEAR [facility] Urine bacteria detection by automated methodon 12-25-2023 Bacteria Auto Ql (U) TRACE #/HPF NONE SEEN [facility] Urine glucose measurement by test strip (mass/volume)on 12-25-2023 Glucose Test strip (U) [Mass/Vol] Negative NEGATIVE [facility] Urine hemoglobin detection b y automated test stripon 12-25-2023 Hemoglobin Auto test strip Ql (U) MODERATE NEGATIVE [facility] Urine nitrite detection by a utomated test stripon 12-25-2023 Nitrite Auto test strip Ql (U) SMALL NEGATIVE [facility] Nitrite Auto test strip Ql (U) Negative NEGATIVE [facility] Urine sediment crystal ident ification by light microscopyon 12-25-2023 Crystals LM Nom (Urine sed) None Seen #/HPF None Seen [facility] Urine sediment leukocyte cou nt by microscopy (number/high power field)on 12-25-2023 WBC LM.HPF (Urine sed) [#/Area] 5-10 #/HPF NONE SEEN [facility] Urobilinogen Auto test strip (U) [Mass/Vol]on 12-25-2023 Urobilinogen Qn (U) 0.2 {Lora'U}/dL 0.2-1.0 [facility] pH Auto test strip (U)on pH (U) 5.5 [pH] 5.0-9.0 [facility] XR ankle LT min 3V*on 2022 XR ankle LT min 3V* [facility] [employer] Other XR ankle LT min 3V* [facility] [employer] Other XR ankle LT min 3V* [address] [place] [address] [employer] Other XR ankle LT min 3V* [place] [address] [employer] Other XR ankle LT min 3V* XRay Report [facility] [employer] Other XR ankle LT min 3V* Signed [employer] Other XR ankle LT min 3V* Patient: Bashir Coats MR#: [id number] [employer] Other XR ankle LT min 3V* : 1955 Acct:[id number] [employer] Other XR ankle LT min 3V* Age/Sex: 68 / F ADM Date: 06/07/23 [employer] Other XR ankle LT min 3V* Loc: XDUC Room: Type: [facility] [employer] Other XR ankle LT min 3V* Attending Dr: Chiara KINGSTON [employer] Other XR ankle LT min 3V* Copies to: VASHTI Carter [employer] Other XR ankle LT min 3V* Ordering Provider: VASHTI Carter [employer] Other XR ankle LT min 3V* Date of Service: 06/07/23 [employer] Other XR ankle LT min 3V* XR/XR ankle LT min 3V*: LEFT ANKLE PAIN [employer] Other XR ankle LT min 3V* LEFT ANKLE - 3 views [employer] Other XR ankle LT min 3V* CLINICAL HISTORY: Left medial ankle pain with swelling and tingling and burning for one month. No [employer] Other XR ankle LT min 3V* known trauma. No rt [employer] Other XR ankle LT min 3V* COMPARISON: None [employer] Other XR ankle LT min 3V* FINDINGS: [employer] Other XR ankle LT min 3V* Soft tissue swelling is noted. Ankle mortise appears intact with mild degenerative change. No acute [employer] Other XR ankle LT min 3V* bony process. Planta r spurring. [employer] Other XR ankle LT min 3V* XR/XR ankle LT min 3V* [employer] Other XR ankle LT min 3V* IMPRESSION: [facility] [employer] Other XR ankle LT min 3V* SOFT TISSUE SWELLING WITHOUT ACUTE BONY PROCESS. DEGENERATIVE CHANGE. [employer] Other XR ankle LT min 3V* Impression dictated by: Tanner Jarquin Jr., D.O.06/07/2023 1:28 PM [employer] Other XR ankle LT min 3V* Dictation Location: [place] [address] [employer] Other XR ankle LT min 3V* Transcribed By: PWS 06/07/23 1328 [employer] Other XR ankle LT min 3V* Dictated By: Tanner Jarquin Jr, DO 06/07/23 1327 [employer] Other XR ankle LT min 3V* Signed By: [employer] Other XR ankle LT min 3V* 06/07/23 1328 No rt [employer] Other C3 and C4 COMPLEMENTon 02-10 Complement C3, Serum 141 mg/dL Normal 82-167 [facility] Comment on above: Performed By: #### C SUITE #### [facility] [address] [place] [address] [address] Eboni Smith Complement C4, Serum 24 mg/dL Normal 12-38 [facility] Comment on above: Performed By: #### C SUITE #### [facility] [address] [place] [address] Dr. Eboni Smith COMPLEMENT TOTAL (CH50)on Complement, Total (CH50) >60 Normal >41 [facility] Comment on above: Result Comment: Age [...] values. Performed By: #### C H50T #### [facility] [address] [place] [address] Dr. Eboni Smith CBC AUTO DIFFon 02-08-2023 BASO # 0.0 103/ul Normal 0.0-0.1 [facility] Comment on above: Performed By: #### C BC #### [facility] [address] [place] [address] Dr. Eboni Smith Basophils/100 WBC (Bld) 0.4 % Normal 0.2-2.0 [facility] Comment on above: Performed By: #### C BC #### [facility] [address] [place] [address] Dr. Eboni Smith EO # 0.2 103/ul Normal 0.0-0.7 [facility] Comment on above: Performed By: #### C BC #### [facility] [address] [place] [address] Dr. Eboni Smith Eosinophils/100 WBC (Bld) 1.6 % Normal 0.9-7.0 [facility] Comment on above: Performed By: #### C BC #### [facility] [address] [place] [address] Dr. Eboni Smith Erythrocyte distribution width (RBC) [Ratio] 14.6 % Normal 11.0-15.0 [facility] Comment on above: Performed By: #### C BC #### [facility] [address] [place] [address] Dr. Eboni Smith Hematocrit (Bld) [Volume fraction] 40.2 % Normal 36.0-48.0 [facility] Comment on above: Performed By: #### C BC #### [facility] [address] [place] [address] Dr. Eboni Smith Hemoglobin (Bld) [Mass/Vol] 12.7 g/dL Normal 12.0-16.0 [facility] Comment on above: Performed By: #### C BC #### [facility] [address] [place] [address] [address] Eboni Smith IG # 0.06 10e3/ul Critically high 0.00-0.03 [facility] Comment on above: Performed By: #### C BC #### [facility] [address] [place] [address] Dr. Eboni Smith IG % 0.6 % Critically high 0.0-0.5 [facility] Comment on above: Performed By: #### C BC #### [facility] [address] [place] [address] Dr. Eboni Smith LYMPH # 3.4 103/ul Normal 1.2-3.8 [facility] Comment on above: Performed By: #### C BC #### [facility] [address] [place] [address] Dr. Eboni Smith Lymphocytes/100 WBC (Bld) 36.6 % Normal 20.5-60.0 [facility] Comment on above: Performed By: #### C BC #### [facility] [address] [place] [address] Dr. Eboni Smith MANUAL DIFF REQ NO Normal [facility] Comment on above: Performed By: #### C BC #### [facility] [address] [place] [address] [address] Eboni Smith MCH (RBC) [Entitic mass] 28.6 pg Normal 26.7-34.0 [facility] Comment on above: Performed By: #### C BC #### [facility] [address] [place] [address] Dr. Eboni Smith MCHC (RBC) [Mass/Vol] 31.6 g/dL Normal 29.9-35.2 [facility] Comment on above: Performed By: #### C BC #### [facility] [address] [place] [address] Dr. Eboni Smith MCV (RBC) [Entitic vol] 90.5 fL Normal 81.0-99.0 [facility] Comment on above: Performed By: #### C BC #### [facility] [address] [place] [address] Dr. Eboni Smith MONO # 0.8 103/ul Normal 0.3-0.8 [facility] Comment on above: Performed By: #### C BC #### [facility] [address] [place] [address] Dr. Eboni Smith Monocytes/100 WBC (Bld) 8.2 % Normal 1.7-12.0 [facility] Comment on above: Performed By: #### C BC #### [facility] [address] [place] [address] Dr. Eboni Smith NEUT # 4.9 103/ul Normal 1.4-6.5 [facility] Comment on above: Performed By: #### C BC #### [facility] [address] [place] [address] Dr. Eboni Smith Neutrophils/100 WBC (Bld) 52.6 % Normal 43.0-75.0 [facility] Comment on above: Performed By: #### C BC #### [facility] [address] [place] [address] Dr. Eboni Smith Platelet mean volume (Bld) [Entitic vol] 8.5 fL Critically low 9.5-13.5 [facility] Comment on above: Performed By: #### C BC #### [facility] [address] [place] [address] Dr. Eboni Smith PLT 272 103/ul Normal 150-450 [facility] Comment on above: Performed By: #### C BC #### [facility] [address] [place] [address] Dr. Eboni Smith RBC 4.44 106/ul Normal 4.20-5.40 [facility] Comment on above: Performed By: #### C BC #### [facility] [address] [place] [address] Dr. Eboni Smith WBC 9.4 103/ul Normal 4.0-11.0 [facility] Comment on above: Performed By: #### C BC #### [facility] [address] [place] [address] Dr. Eboni Smith PROF 14(COMP METB)on 023 Albumin [Mass/Vol] 3.2 g/dL Critically low 3.4-5.0 [facility] Comment on above: Performed By: #### C MP #### [facility] [address] [place] [address] Dr. Eboni Smith Albumin/Globulin [Mass ratio] 0.9 {ratio} Normal [facility] Comment on above: Performed By: #### C MP #### [facility] [address] [place] [address] Dr. Eboni Smith ALP [Catalytic activity/Vol] 85 U/L Normal 46-116 [facility] Comment on above: Performed By: #### C MP #### [facility] [address] [place] [address] Dr. Eboni Smith ALT [Catalytic activity/Vol] 22 U/L Normal 14-59 [facility] Comment on above: Performed By: #### C MP #### [facility] [address] [place] [address] Dr. Eboni Smith Anion gap [Moles/Vol] 10.8 mmol/L Normal [facility] Comment on above: Performed By: #### C MP #### [facility] [address] [place] [address] Dr. Eboni Smith AST [Catalytic activity/Vol] 16 U/L Normal 15-37 [facility] Comment on above: Performed By: #### C MP #### [facility] [address] [place] [address] Dr. Eboni Smith Bilirubin [Mass/Vol] 0.2 mg/dL Normal 0.2-1.0 [facility] Comment on above: Performed By: #### C MP #### [facility] [address] [place] [address] [address] Eboni Smith Calcium [Mass/Vol] 8.9 mg/dL Normal 8.5-10.1 [facility] Comment on above: Performed By: #### C MP #### [facility] [address] [place] [address] [address] Eboni Smith Chloride [Moles/Vol] 106 mmol/L Normal 98-107 [facility] Comment on above: Performed By: #### C MP #### [facility] [address] [place] [address] [address] Eboni Smith CO2 [Moles/Vol] 28.2 mmol/L Normal 21.0-32.0 [facility] Comment on above: Performed By: #### C MP #### [facility] [address] [place] [address] Dr. Eboni Smith Creatinine [Mass/Vol] 0.87 mg/dL Normal 0.55-1.02 [facility] Comment on above: Performed By: #### C MP #### [facility] [address] [place] [address] Dr. Eboni Smith EGFR-AF GAMBIAN >60 Normal >=60 [facility] Comment on above: Performed By: #### C MP #### [facility] [address] [place] [address] Dr. Eboni Smith EGFR-NON AF GAMBIAN >60 Normal >=60 [facility] Comment on above: Performed By: #### C MP #### [facility] [address] [place] [address] Dr. Eboni Smith Globulin (S) [Mass/Vol] 3.5 g/dL Normal [facility] Comment on above: Performed By: #### C MP #### [facility] [address] [place] [address] Dr. Eboni Smith Glucose [Mass/Vol] 93 mg/dL Normal 74-106 [facility] Comment on above: Performed By: #### C MP #### [facility] [address] [place] [address] Dr. Eboni Smith Potassium [Moles/Vol] 4.0 mmol/L Normal 3.5-5.1 [facility] Comment on above: Performed By: #### C MP #### [facility] [address] [place] [address] Dr. Eboni Smith Protein [Mass/Vol] 6.7 g/dL Normal 6.4-8.2 [facility] Comment on above: Performed By: #### C MP #### [facility] [address] [place] [address] [address] Eboni Smith Sodium [Moles/Vol] 141 mmol/L Normal 136-145 [facility] Comment on above: Performed By: #### C MP #### [facility] [address] [place] [address] Dr. Eboni Smith Urea nitrogen [Mass/Vol] 18.0 mg/dL Normal 7.0-18.0 [facility] Comment on above: Performed By: #### C MP #### [facility] [address] [place] [address] Dr. Eboni Smith Urea nitrogen/Creatinine [Mass ratio] 20.7 mg/mg Normal [facility] Comment on above: Performed By: #### C MP #### [facility] [address] [place] [address] Dr. Eboni Smith [facility] 22 mm/hr Normal <=30 [facility] Comment on above: Performed By: #### C SUITE #### [facility] [address] [place] [address] Dr. Eboni Smith UA RANDOM W/MICROSCOPICon BACTERIA TRACE Abnormal NONE SEEN [facility] Comment on above: Performed By: #### C BC #### [facility] [address] [place] [address] Dr. Eboni Smith Bilirubin Ql (U) Negative Normal NEGATIVE [facility] Comment on above: Performed By: #### C BC #### [facility] [address] [place] [address] Dr. Eboni Smith CAST NONE SEEN Normal NONE SEEN [facility] Comment on above: Performed By: #### C BC #### [facility] [address] [place] [address] Dr. Eboni Smith Clarity (U) SL CLOUDY Abnormal CLEAR [facility] Comment on above: Performed By: #### C BC #### [facility] [address] [place] [address] [address] Eboni Smith Color (U) LT. YELLOW Normal YELLOW [facility] Comment on above: Performed By: #### C BC #### [facility] [address] [place] [address] Dr. Eboni Smith Crystals LM Nom (Urine sed) NONE SEEN Normal NONE SEEN [facility] Comment on above: Performed By: #### C BC #### [facility] [address] [place] [address] Dr. Eboni Smith Epithelial cells LM Ql (Urine sed) FEW Abnormal NONE SEEN /RARE [facility] Comment on above: Performed By: #### C BC #### [facility] [address] [place] [address] Dr. Eboni Smith Glucose Ql (U) Negative Normal NEGATIVE The [facility] Comment on above: Performed By: #### C BC #### [facility] [address] [place] [address] Dr. Eboni Smith Hemoglobin Ql (U) TRACE-INTACT Abnormal NEGATIVE [facility] Comment on above: Performed By: #### C BC #### [facility] [address] [place] [address] Dr. Eboni Smith Ketones Ql (U) Negative Normal NEGATIVE [facility] Comment on above: Performed By: #### C BC #### [facility] [facility] [address] [place] [address] Dr. Eboni Smith LEUKOCYTES SMALL Abnormal NEGATIVE [facility] Comment on above: Performed By: #### C BC #### [facility] [address] [place] [address] Dr. Eboni Smith MUCOUS NONE SEEN Normal NONE SEEN [facility] Comment on above: Performed By: #### C BC #### [facility] [address] [place] [address] Dr. Eboni Smith Nitrite Ql (U) Negative Normal NEGATIVE The [facility] Comment on above: Performed By: #### C BC #### [facility] [address] [place] [address] Dr. Eboni Smith pH (U) 5.5 [pH] Normal 5-9 [facility] Comment on above: Performed By: #### C BC #### [facility] [address] [place] [address] Dr. Eboni Smith RBC 0-2 Normal 0-2 [facility] Comment on above: Performed By: #### C BC #### [facility] [address] [place] [address] Dr. Eboni Smith SPEC GRAVITY 1.005 Normal 1.005-<=1.02 5 [facility] Comment on above: Performed By: #### C BC #### [facility] [address] [place] [address] Dr. Eboni Smith UA PROTEIN Negative Normal NEGATIVE/ TRACE [facility] Comment on above: Performed By: #### C BC #### [facility] [address] [place] [address] Dr. Eboni Smith Urobilinogen Qn (U) 0.2 {Lora'U}/dL Normal 0.2 - 1. 0 [facility] Comment on above: Performed By: #### C BC #### [facility] [address] [place] [address] Dr. Eboni Smith WBC 2-5 Abnormal NONE SEEN The [facility] Comment on above: Performed By: #### C BC #### [facility] [address] [place] [address] Dr. Eboni Smith XR shoulder RT min 2V*on XR shoulder RT min 2V* [facility] [employer] Other XR shoulder RT min 2V* [facility] [employer] Other XR shoulder RT min 2V* [address] [place] [address] [employer] Other XR shoulder RT min 2V* [place] [address] [employer] Other XR shoulder RT min 2V* XRay Report [employer] Other XR shoulder RT min 2V* Signed [employer] Other XR shoulder RT min 2V* Patient: Bashir Coats MR#: [id number] [employer] Other XR shoulder RT min 2V* : 1955 Acct:[id number] [employer] Other XR shoulder RT min 2V* Age/Sex: 67 / F ADM Date: 12/16/22 [employer] Other XR shoulder RT min 2V* Loc: XDUCLY Room: Type: [facility] [employer] Other XR shoulder RT min 2V* Attending Dr: Chiara KINGSTON [employer] Other XR shoulder RT min 2V* Copies to: VASHTI Carter [employer] Other XR shoulder RT min 2V* Ordering Provider: VASHTI Carter [employer] Other XR shoulder RT min 2V* Date of Service: 12/16/22 [employer] Other XR shoulder RT min 2V* XR/XR elbow RT min 3V*: Right elbow pain;Acute pain of right shoulder [employer] Other XR shoulder RT min 2V* ([id number]) XR/XR shoulder RT min 2V*: Right elbow pain;Acute pain of right shoulder [employer] Other XR shoulder RT min 2V* RIGHT ELBOW - 4 views [employer] Other XR shoulder RT min 2V* CLINICAL HISTORY: Right elbow and shoulder pain status post fall 2 days ago. [employer] Other XR shoulder RT min 2V* COMPARISON: None [employer] Other XR shoulder RT min 2V* FINDINGS: [employer] Other XR shoulder RT min 2V* Right shoulder: Mild degenerative changes of the AC and glenohumeral joints without acute bony [employer] Other XR shoulder RT min 2V* process. [employer] Other XR shoulder RT min 2V* Right elbow: Soft tissue swelling. No elbow joint effusion. No acute bony process. Mild spurring [employer] Other XR shoulder RT min 2V* along the epicondyles. [employer] Other XR shoulder RT min 2V* XR/XR elbow RT min 3V* [employer] Other XR shoulder RT min 2V* IMPRESSION: [employer] Other XR shoulder RT min 2V* NO ACUTE BONY PROCESS. [employer] Other XR shoulder RT min 2V* Impression dictated by: Tanner Jarquin Jr., D.O.12/16/2022 2:46 PM [employer] Other XR shoulder RT min 2V* Dictation Location: [place] [address] [employer] Other XR shoulder RT min 2V* Transcribed By: PWS 12/16/22 [facility] [employer] Other XR shoulder RT min 2V* Dictated By: Tanner Jarquin Jr DO 12/16/22 [employer] Other XR shoulder RT min 2V* Signed By: [employer] Other XR shoulder RT min 2V* 12/16/22 [facility] [employer] Other C3 and C4 COMPLEMENTon 09-29 Complement C3, Serum 118 mg/dL Normal 82-167 [facility] Comment on above: Performed By: #### C BC #### [facility] [address] [place] [address] Dr. Eboni Smith Complement C4, Serum 25 mg/dL Normal 12-38 [facility] Comment on above: Performed By: #### C BC #### [facility] [address] [place] [address] Dr. Eboni Smith COMPLEMENT TOTAL (CH50)on Complement, Total (CH50) >60 Normal >41 [facility] Comment on above: Result Comment: [...] values. Performed By: #### C SUITE #### [facility] [address] [place] [address] Dr. Eboni Smith CBC AUTO DIFFon 09-28-2022 BASO # 0.0 103/ul Normal 0.0-0.1 [facility] Comment on above: Performed By: #### C BC #### [facility] [address] [place] [address] Dr. Eboni Smith Basophils/100 WBC (Bld) 0.6 % Normal 0.2-2.0 [facility] Comment on above: Performed By: #### C BC #### [facility] [address] [place] [address] Dr. Eboni Smith EO # 0.2 103/ul Normal 0.0-0.7 [facility] Comment on above: Performed By: #### C BC #### [facility] [address] [place] [address] Dr. Eboni Smith Eosinophils/100 WBC (Bld) 2.3 % Normal 0.9-7.0 [facility] Comment on above: Performed By: #### C BC #### [facility] [address] [place] [address] Dr. Eboni Smith Erythrocyte distribution width (RBC) [Ratio] 13.8 % Normal 11.0-15.0 [facility] Comment on above: Performed By: #### C BC #### [facility] [address] [place] [address] Dr. Eboni Smith Hematocrit (Bld) [Volume fraction] 39.7 % Normal 36.0-48.0 [facility] Comment on above: Performed By: #### C BC #### [facility] [address] [place] [address] Dr. Eboni Smith Hemoglobin (Bld) [Mass/Vol] 12.7 g/dL Normal 12.0-16.0 [facility] Comment on above: Performed By: #### C BC #### [facility] [address] [place] [address] Dr. Eboni Smith IG # 0.02 10e3/ul Normal 0.00-0.03 [facility] Comment on above: Performed By: #### C BC #### [facility] [address] [place] [address] Dr. Eboni Smith IG % 0.3 % Normal 0.0-0.5 [facility] Comment on above: Performed By: #### C BC #### [facility] [address] [place] [address] Dr. Eboni Smith LYMPH # 2.1 103/ul Normal 1.2-3.8 [facility] Comment on above: Performed By: #### C BC #### [facility] [address] [place] [address] Dr. Eboni Smith Lymphocytes/100 WBC (Bld) 31.2 % Normal 20.5-60.0 [facility] Comment on above: Performed By: #### C BC #### [facility] [address] [place] [address] Dr. Eboni Smith MANUAL DIFF REQ NO Normal [facility] Comment on above: Performed By: #### C BC #### [facility] [address] [place] [address] Dr. Eboni Smith MCH (RBC) [Entitic mass] 29.3 pg Normal 26.7-34.0 [facility] Comment on above: Performed By: #### C BC #### [facility] [address] [place] [address] Dr. Eboni Smith MCHC (RBC) [Mass/Vol] 32.0 g/dL Normal 29.9-35.2 [facility] Comment on above: Performed By: #### C BC #### [facility] [address] [place] [address] Dr. Eboni Smith MCV (RBC) [Entitic vol] 91.5 fL Normal 81.0-99.0 [facility] Comment on above: Performed By: #### C BC #### [facility] [address] [place] [address] Dr. Eboni Smith MONO # 0.5 103/ul Normal 0.3-0.8 [facility] Comment on above: Performed By: #### C BC #### [facility] [address] [place] [address] Dr. Eboni Smith Monocytes/100 WBC (Bld) 7.3 % Normal 1.7-12.0 [facility] Comment on above: Performed By: #### C BC #### [facility] [address] [place] [address] Dr. Eboni Smith NEUT # 4.0 103/ul Normal 1.4-6.5 [facility] Comment on above: Performed By: #### C BC #### [facility] [address] [place] [address] Dr. Eboni Smith Neutrophils/100 WBC (Bld) 58.3 % Normal 43.0-75.0 [facility] Comment on above: Performed By: #### C BC #### [facility] [address] [place] [address] Dr. Eboni Smith Platelet mean volume (Bld) [Entitic vol] 8.5 fL Critically low 9.5-13.5 [facility] Comment on above: Performed By: #### C BC #### [facility] [address] [place], [place] [id number] Dr. Eboni Smith PLT 200 103/ul Normal 150-450 [facility] Comment on above: Performed By: #### C BC #### [facility] [address] [place] [address] Dr. Eboni Smith RBC 4.34 106/ul Normal 4.20-5.40 [facility] Comment on above: Performed By: #### C BC #### [facility] [address] [place] [address] Dr. Eboni Smith WBC 6.9 103/ul Normal 4.0-11.0 [facility] Comment on above: Performed By: #### C BC #### [facility] [address] [place] [address] Dr. Eboni Smith PROF 14(COMP METB)on 022 Albumin [Mass/Vol] 3.4 g/dL Normal 3.4-5.0 [facility] Comment on above: Performed By: #### C BC #### [facility] [address] [place] [address] Dr. Eboni Smith Albumin/Globulin [Mass ratio] 1.0 {ratio} Normal [facility] Comment on above: Performed By: #### C BC #### [facility] [address] [place] [address] Dr. Eboni Smith ALP [Catalytic activity/Vol] 75 U/L Normal 46-116 [facility] Comment on above: Performed By: #### C BC #### [facility] [address] [place] [address] Dr. Eboni Smith ALT [Catalytic activity/Vol] 16 U/L Normal 14-59 [facility] Comment on above: Performed By: #### C BC #### [facility] [address] [place] [address] Dr. Eboni Smith Anion gap [Moles/Vol] 10.2 mmol/L Normal [facility] Comment on above: Performed By: #### C BC #### [facility] [address] [place] [address] Dr. Eboni Smith AST [Catalytic activity/Vol] 18 U/L Normal 15-37 [facility] Comment on above: Performed By: #### C BC #### [facility] [address] [address] [address] Eboni Smith Bilirubin [Mass/Vol] 0.3 mg/dL Normal 0.2-1.0 [facility] Comment on above: Performed By: #### C BC #### [facility] [address] [address] [address] Eboni Smith Calcium [Mass/Vol] 9.3 mg/dL Normal 8.5-10.1 [facility] Comment on above: Performed By: #### C BC #### [facility] [address] [address] [address] Eboni Smith Chloride [Moles/Vol] 105 mmol/L Normal 98-107 [facility] Comment on above: Performed By: #### C BC #### [facility] [address] [place] [address] Dr. Eboni Smith CO2 [Moles/Vol] 29.1 mmol/L Normal 21.0-32.0 [facility] Comment on above: Performed By: #### C BC #### [facility] [address] [place] [address] Dr. Eboni Smith Creatinine [Mass/Vol] 0.87 mg/dL Normal 0.55-1.02 [facility] Comment on above: Performed By: #### C BC #### [facility] [address] [place] [address] Dr. Eboni Smith EGFR-AF GAMBIAN >60 Normal >=60 The [facility] Comment on above: Performed By: #### C BC #### [facility] [address] [place] [address] Dr. Eboni Smith EGFR-NON AF GAMBIAN >60 Normal >=60 [facility] Comment on above: Performed By: #### C BC #### [facility] [address] [place] [address] Dr. Eboni Smith Globulin (S) [Mass/Vol] 3.4 g/dL Normal [facility] Comment on above: Performed By: #### C BC #### [facility] [address] [address] [address] Eboni Smith Glucose [Mass/Vol] 82 mg/dL Normal 74-106 [facility] Comment on above: Performed By: #### C BC #### [facility] [address] [address] [address] Eboni Smith Potassium [Moles/Vol] 4.3 mmol/L Normal 3.5-5.1 [facility] Comment on above: Performed By: #### C BC #### [facility] [address] [address] [address] Eboni Smith Protein [Mass/Vol] 6.8 g/dL Normal 6.4-8.2 [facility] Comment on above: Performed By: #### C BC #### [facility] [address] [place] [address] Dr. Eboni Smith Sodium [Moles/Vol] 140 mmol/L Normal 136-145 [facility] Comment on above: Performed By: #### C BC #### [facility] [address] [place] [address] Dr. Eboni Smith Urea nitrogen [Mass/Vol] 16.0 mg/dL Normal 7.0-18.0 [facility] Comment on above: Performed By: #### C BC #### [facility] [address] [place] [address] Dr. Eboni Smith Urea nitrogen/Creatinine [Mass ratio] 18.4 mg/mg Normal [facility] Comment on above: Performed By: #### C BC #### [facility] [address] [place] [address] Dr. Eboni Smith SED RATE WESTERGRENon 2021 SED RATE 17 mm/hr Normal <=30 [facility] Comment on above: Performed By: #### C BC #### [facility] [address] [place] [address] Dr. Eboni Smith UA RANDOM W/MICROSCOPICon BACTERIA TRACE Abnormal NONE SEEN [facility] Comment on above: Performed By: #### C BC #### [facility] [address] [place] [address] Dr. Eboni Smith Bilirubin Ql (U) Negative Normal NEGATIVE [facility] Comment on above: Performed By: #### C BC #### [facility] [address] [place] [address] Dr. Eboni Smith CAST NONE SEEN Normal NONE SEEN [facility] Comment on above: Performed By: #### C BC #### [facility] [address] [place] [address] Dr. Eboni Smith Clarity (U) CLEAR Normal CLEAR [facility] Comment on above: Performed By: #### C BC #### [facility] [address] [place] [address] Dr. Eboni Smith Color (U) LT. YELLOW Normal YELLOW [facility] Comment on above: Performed By: #### C BC #### [facility] [address] [place] [address] Dr. Eboni Smith Crystals LM Nom (Urine sed) NONE SEEN Normal NONE SEEN [facility] Comment on above: Performed By: #### C BC #### [facility] [address] [place] [address] Dr. Eboni Smith Epithelial cells LM Ql (Urine sed) FEW Abnormal NONE SEEN /RARE [facility] Comment on above: Performed By: #### C BC #### [facility] [address] [place] [address] Dr. Eboni Smith Glucose Ql (U) Negative Normal NEGATIVE The [facility] Comment on above: Performed By: #### C BC #### [facility] [address] [place] [address] Dr. Eboni Smith Hemoglobin Ql (U) MODERATE Abnormal NEGATIVE [facility] Comment on above: Performed By: #### C BC #### [facility] [address] [place] [address] Dr. Eboni Smith Ketones Ql (U) Negative Normal NEGATIVE [facility] Comment on above: Performed By: #### C BC #### [facility] [address] [place] [address] Dr. Eboni Smith LEUKOCYTES TRACE Abnormal NEGATIVE [facility] Comment on above: Performed By: #### C BC #### [facility] [address] [place] [address] Dr. Eboni Smith MUCOUS NONE SEEN Normal NONE SEEN [facility] Comment on above: Performed By: #### C BC #### [facility] [address] [place] [address] Dr. Eboni Smith Nitrite Ql (U) Negative Normal NEGATIVE [facility] Comment on above: Performed By: #### C BC #### [facility] [address] [place] [address] Dr. Eboni Smith pH (U) 5.0 [pH] Normal 5-9 [facility] Comment on above: Performed By: #### C BC #### [facility] [address] [place] [address] Dr. Eboni Smith RBC 5-10 Abnormal 0-2 [facility] Comment on above: Performed By: #### C BC #### [facility] [address] [place] [address] Dr. Eboni Smith SPEC GRAVITY 1.010 Normal 1.005-<=1.02 5 [facility] Comment on above: Performed By: #### C BC #### [facility] [address] [place] [address] Dr. Eboni Smith UA PROTEIN Negative Normal NEGATIVE/ TRACE [facility] Comment on above: Performed By: #### C BC #### [facility] [address] [place] [address] Dr. Eboni Smith Urobilinogen Qn (U) 0.2 {Lora'U}/dL Normal 0.2 - 1. 0 [facility] Comment on above: Performed By: #### C BC #### [facility] [address] [place] [address] Dr. Eboni Smith WBC 5-10 Abnormal NONE SEEN [facility] Comment on above: Performed By: #### C BC #### [facility] [address] [place] [address] Dr. bEoni Smith COVID-19 SOFIAOrdered By: Whitney Newberry on 12-05-2022 SARS-CoV+SARS-CoV-2 (COVID-19) Ag IA.rapid Ql (Resp) Negative Negative [facility] Comment on above: This is a duplicate Lona SARS Antigen (KARY) result to be used for statistical tracking purpose only. CT CHEST HI RESOLUTIONon CT CHEST HI RESOLUTION EXAMINATION: CT CHEST HI RESOLUTION HISTORY: Fibrosis of lung COMPARISON: No relevant comparison a11ailable. TECHNIQUE: Axial images were obtained at 10 [...] by: EULALIA MORALES Date: 2022-09-18 15:20 Normal [facility] ECHOCARDIO M/2D COMPLETEon 1 11-19-2021 ECHOCARDIO M/2D COMPLETE Patient: BASHIR COATS Exam Date: 09/18/2022 : 1955 Gender:F Ordering : DR ANGELIC VICK M.D. Admission #: [id number] Family : DR STEVE ARMENDARIZ D.O. Order #: [id number] CLICK HERE TO VIEW EXAM ECHOCARDIOGRAM REPORT [...] Owens M.D. on 09/20/2022 at 13:59 Normal [facility] HEMOGLOBINon 09-18-2022 Hemoglobin (Bld) [Mass/Vol] 12.4 g/dL Normal 12.0-16.0 [facility] Comment on above: Performed By: #### C SUITE #### [facility] [address] [place] [address] Dr. Eboni Smith No Panel InformationOrdered By: Alex Newberry on 09-18-2022 SARS Antigen (LFIA) [facility] SARS Antigen (LFIA) [facility] COMPLEMENT TOTAL (CH50)on Complement, Total (CH50) 59 U/mL Normal >41 [facility] Comment on above: Result Comment: Age [...] values. Performed By: #### C H50T #### [facility] [address] [place] [address] Dr. Eboni Smith C3 and C4 COMPLEMENTon 06-10 Complement C3, Serum 118 mg/dL Normal 82-167 [facility] Comment on above: Performed By: #### C SUITE #### [facility] [address] [place] [address] Dr. Eboni Smith Complement C4, Serum 22 mg/dL Normal 12-38 [facility] Comment on above: Performed By: #### C SUITE #### [facility] [address] [place] [address] Dr. Eboni Smith CBC AUTO DIFFon 06-09-2022 BASO # 0.0 103/ul Normal 0.0-0.1 [facility] Comment on above: Performed By: #### C BC #### [facility] [address] [place] [address] Dr. Eboni Smith Basophils/100 WBC (Bld) 0.4 % Normal 0.2-2.0 [facility] Comment on above: Performed By: #### C BC #### [facility] [address] [place] [address] Dr. Eboni Smith EO # 0.2 103/ul Normal 0.0-0.7 [facility] Comment on above: Performed By: #### C BC #### [facility] [address] [place] [address] Dr. Eboni Smith Eosinophils/100 WBC (Bld) 2.3 % Normal 0.9-7.0 [facility] Comment on above: Performed By: #### C BC #### [facility] [address] [place] [address] Dr. Eboni Smith Erythrocyte distribution width (RBC) [Ratio] 13.6 % Normal 11.0-15.0 [facility] Comment on above: Performed By: #### C BC #### [facility] [address] [place] [address] Dr. Eboni Smith Hematocrit (Bld) [Volume fraction] 40.7 % Normal 36.0-48.0 [facility] Comment on above: Performed By: #### C BC #### [facility] [address] [address] [address] Eboni Smith Hemoglobin (Bld) [Mass/Vol] 12.9 g/dL Normal 12.0-16.0 [facility] Comment on above: Performed By: #### C BC #### [facility] [address] [address] [address] Eboni Smith IG # 0.02 10e3/ul Normal 0.00-0.03 [facility] Comment on above: Performed By: #### C BC #### [facility] [address] [place] [address] Dr. Eboni Smith IG % 0.3 % Normal 0.0-0.5 [facility] Comment on above: Performed By: #### C BC #### [facility] [address] [place] [address] Dr. Eboni Smith LYMPH # 2.3 103/ul Normal 1.2-3.8 [facility] Comment on above: Performed By: #### C BC #### [facility] [address] [place] [address] Dr. Eboni Smith Lymphocytes/100 WBC (Bld) 33.6 % Normal 20.5-60.0 [facility] Comment on above: Performed By: #### C BC #### [facility] [address] [place] [address] Dr. Eboni Smith MANUAL DIFF REQ NO Normal [facility] Comment on above: Performed By: #### C BC #### [facility] [address] [place] [address] Dr. Eboni Smith MCH (RBC) [Entitic mass] 29.5 pg Normal 26.7-34.0 [facility] Comment on above: Performed By: #### C BC #### [facility] [address] [place] [address] Dr. Eboni Smith MCHC (RBC) [Mass/Vol] 31.7 g/dL Normal 29.9-35.2 [facility] Comment on above: Performed By: #### C BC #### [facility] [address] [address] [address] Eboni Smith MCV (RBC) [Entitic vol] 92.9 fL Normal 81.0-99.0 [facility] Comment on above: Performed By: #### C BC #### [facility] [address] [address] [address] Eboni Smith MONO # 0.6 103/ul Normal 0.3-0.8 [facility] Comment on above: Performed By: #### C BC #### [facility] [address] [place] [address] Dr. Eboni Smith Monocytes/100 WBC (Bld) 8.1 % Normal 1.7-12.0 [facility] Comment on above: Performed By: #### C BC #### [facility] [address] [place] [address] Dr. Eboni Smith NEUT # 3.8 103/ul Normal 1.4-6.5 [facility] Comment on above: Performed By: #### C BC #### [facility] [address] [place] [address] Dr. Eboni Smith Neutrophils/100 WBC (Bld) 55.3 % Normal 43.0-75.0 [facility] Comment on above: Performed By: #### C BC #### [facility] [address] [place] [address] Dr. Eboni Smith Platelet mean volume (Bld) [Entitic vol] 8.8 fL Critically low 9.5-13.5 [facility] Comment on above: Performed By: #### C BC #### [facility] [address] [place], [place] [address] Dr. Eboni Smith PLT 209 103/ul Normal 150-450 [facility] Comment on above: Performed By: #### C BC #### [facility] [address] [place] [address] Dr. Eboni Smith RBC 4.38 106/ul Normal 4.20-5.40 [facility] Comment on above: Performed By: #### C BC #### [facility] [address] [place] [address] Dr. Eboni Simth WBC 6.9 103/ul Normal 4.0-11.0 [facility] Comment on above: Performed By: #### C BC #### [facility] [address] [place] [address] Dr. Eboni Smith PROF 14(COMP METB)on 022 Albumin [Mass/Vol] 3.6 g/dL Normal 3.4-5.0 [facility] Comment on above: Performed By: #### C SUITE #### [facility] [address] [place] [address] Dr. Eboni Smith Albumin/Globulin [Mass ratio] 1.1 {ratio} Normal [facility] Comment on above: Performed By: #### C SUITE #### [facility] [address] [place] [address] Dr. Eboni Smith ALP [Catalytic activity/Vol] 78 U/L Normal 46-116 [facility] Comment on above: Performed By: #### C SUITE #### [facility] [address] [place] [address] Dr. Eboni Smith ALT [Catalytic activity/Vol] 19 U/L Normal 14-59 [facility] Comment on above: Performed By: #### C SUITE #### [facility] [address] [place] [address] Dr. Eboni Smith Anion gap [Moles/Vol] 10.4 mmol/L Normal [facility] Comment on above: Performed By: #### C SUITE #### [facility] [address] [place] [address] Dr. Eboni Smith AST [Catalytic activity/Vol] 18 U/L Normal 15-37 [facility] Comment on above: Performed By: #### C SUITE #### [facility] [address] [place] [address] Dr. Eboni Smith Bilirubin [Mass/Vol] 0.3 mg/dL Normal 0.2-1.0 [facility] Comment on above: Performed By: #### C SUITE #### [facility] [address] [place] [address] Dr. Eboni Smith Calcium [Mass/Vol] 8.9 mg/dL Normal 8.5-10.1 [facility] Comment on above: Performed By: #### C SUITE #### [facility] [address] [place] [address] Dr. Eboni Smith Chloride [Moles/Vol] 105 mmol/L Normal 98-107 [facility] Comment on above: Performed By: #### C SUITE #### [facility] [address] [place] [address] Dr. Eboni Smith CO2 [Moles/Vol] 28.8 mmol/L Normal 21.0-32.0 [facility] Comment on above: Performed By: #### C SUITE #### [facility] [address] [place] [address] Dr. Eboni Smith Creatinine [Mass/Vol] 0.88 mg/dL Normal 0.55-1.02 [facility] Comment on above: Performed By: #### C SUITE #### [facility] [address] [place] [address] Dr. Eboni Smith EGFR-AF GAMBIAN >60 Normal >=60 [facility] Comment on above: Performed By: #### C SUITE #### [facility] [address] [place] [address] Dr. Eboni Smith EGFR-NON AF GAMBIAN >60 Normal >=60 [facility] Comment on above: Performed By: #### C SUITE #### [facility] [address] [place] [address] Dr. Eboni Smith Globulin (S) [Mass/Vol] 3.3 g/dL Normal [facility] Comment on above: Performed By: #### C SUITE #### [facility] [address] [place] [address] Dr. Eboni Smith Glucose [Mass/Vol] 98 mg/dL Normal 74-106 [facility] Comment on above: Performed By: #### C SUITE #### [facility] [address] [place] [address] Dr. Eboni Smith Potassium [Moles/Vol] 4.2 mmol/L Normal 3.5-5.1 [facility] Comment on above: Performed By: #### C SUITE #### [facility] [address] [address] [address] Eboni Smith Protein [Mass/Vol] 6.9 g/dL Normal 6.4-8.2 [facility] Comment on above: Performed By: #### C SUITE #### [facility] [address] [address] [address] Eboni Smith Sodium [Moles/Vol] 140 mmol/L Normal 136-145 [facility] Comment on above: Performed By: #### C SUITE #### [facility] [address] [address] [address] Eboni Smith Urea nitrogen [Mass/Vol] 22.0 mg/dL Critically high 7.0-18.0 [facility] Comment on above: Performed By: #### C SUITE #### [facility] [address] [address] [address] Eboni Smith Urea nitrogen/Creatinine [Mass ratio] 25.0 mg/mg Normal [facility] Comment on above: Performed By: #### C SUITE #### [facility] [address] [address] [address] Eboni Smith SED RATE [facility] 2021 SED RATE 21 mm/hr Normal <=30 [facility] Comment on above: Performed By: #### C SUITE #### [facility] [address] [address] [address] Eboin Smith UA RANDOM W/MICROSCOPICon BACTERIA NONE SEEN Normal NONE SEEN [facility] Comment on above: Performed By: #### U AMIC #### [facility] [address] [address] [address] Eboni Smith Bilirubin Ql (U) Negative Normal NEGATIVE [facility] Comment on above: Performed By: #### U AMIC #### [facility] [address] [address] [address] Eboni Smith CAST NONE SEEN Normal NONE SEEN [facility] Comment on above: Performed By: #### U AMIC #### [facility] [address] [address] [address] Eboni Smith Clarity (U) CLEAR Normal CLEAR [facility] Comment on above: Performed By: #### U AMIC #### [facility] [address] [address] [address] Eboni Smith Color (U) LT. YELLOW Normal YELLOW [facility] Comment on above: Performed By: #### U AMIC #### [facility] [address] [address] [address] Eboni Smith Crystals LM Nom (Urine sed) NONE SEEN Normal NONE SEEN [facility] Comment on above: Performed By: #### U AMIC #### [facility] [address] [address] [address] Eboni Smith Epithelial cells LM Ql (Urine sed) FEW Abnormal NONE SEEN /RARE [facility] Comment on above: Performed By: #### U AMIC #### [facility] [address] [place] [address] Dr. Eboni Smith Glucose Ql (U) Negative Normal NEGATIVE The [facility] Comment on above: Performed By: #### U AMIC #### [facility] [address] [address] [address] Eboni Smith Hemoglobin Ql (U) SMALL Abnormal NEGATIVE [facility] Comment on above: Performed By: #### U AMIC #### [facility] [address] [place] [address] Dr. Eboni Smith Ketones Ql (U) Negative Normal NEGATIVE The [facility] Comment on above: Performed By: #### U AMIC #### [facility] [address] [place] [address] Dr. Eboni Smith LEUKOCYTES TRACE Abnormal NEGATIVE [facility] Comment on above: Performed By: #### U AMIC #### [facility] [address] [address] [address] Eboni Smith MUCOUS NONE SEEN Normal NONE SEEN [facility] Comment on above: Performed By: #### U AMIC #### [facility] [address] [address] [address] Eboni Smith Nitrite Ql (U) Negative Normal NEGATIVE The [facility] Comment on above: Performed By: #### U AMIC #### [facility] [address] [place] [address] Dr. Eboni Smith pH (U) 6.0 [pH] Normal 5-9 [facility] Comment on above: Performed By: #### U AMIC #### [facility] [address] [place] [address] Dr. Eboni Smith RBC 2-5 Abnormal 0-2 [facility] Comment on above: Performed By: #### U AMIC #### [facility] [address] [place] [address] Dr. Eboni Smith SPEC GRAVITY 1.010 Normal 1.005-<=1.02 5 [facility] Comment on above: Performed By: #### U AMIC #### [facility] [address] [place] [address] Dr. Eboni Smith UA PROTEIN Negative Normal NEGATIVE/ TRACE [facility] Comment on above: Performed By: #### U AMIC #### [facility] [address] [place] [address] Dr. Eboni Smith Urobilinogen Qn (U) 0.2 {Lora'U}/dL Normal 0.2 - 1. 0 [facility] Comment on above: Performed By: #### U AMIC #### [facility] [address] [place] [address] Dr. Eboni Smith WBC 2-5 Abnormal NONE SEEN [facility] Comment on above: Performed By: #### U AMIC #### [facility] [address] [place] [address] Dr. Eboni Smith C3 and C4 COMPLEMENTon 03-01 Complement C3, Serum 110 mg/dL Normal 82-167 [facility] Comment on above: Performed By: #### C SUITE #### [facility] [address] [place] [address] Dr. Eboni Smith Complement C4, Serum 22 mg/dL Normal 12-38 [facility] Comment on above: Performed By: #### C SUITE #### [facility] [address] [place] [address] Dr. Eboni Smith COMPLEMENT TOTAL (CH50)on Complement, Total (CH50) >60 Normal >41 [facility] Comment on above: Result Comment: Age [...] values. Performed By: #### C BC #### [facility] [address] [place] [address] Dr. Eboni Smith CBC AUTO DIFFon 02-28-2022 BASO # 0.0 103/ul Normal 0.0-0.1 [facility] Comment on above: Performed By: #### C SUITE #### [facility] [address] [place] [address] Dr. Eboni Smith Basophils/100 WBC (Bld) 0.2 % Normal 0.2-2.0 [facility] Comment on above: Performed By: #### C SUITE #### [facility] [address] [place] [address] Dr. Eboni Smith EO # 0.1 103/ul Normal 0.0-0.7 [facility] Comment on above: Performed By: #### C SUITE #### [facility] [address] [address] [address] Eboni Smith Eosinophils/100 WBC (Bld) 1.5 % Normal 0.9-7.0 [facility] Comment on above: Performed By: #### C SUITE #### [facility] [address] [place] [address] Dr. Eboni Smith Erythrocyte distribution width (RBC) [Ratio] 14.6 % Normal 11.0-15.0 [facility] Comment on above: Performed By: #### C SUITE #### [facility] [address] [place] [address] Dr. Eboni Smith Hematocrit (Bld) [Volume fraction] 38.9 % Normal 36.0-48.0 [facility] Comment on above: Performed By: #### C SUITE #### [facility] [address] [place] [address] Dr. Eboni Smith Hemoglobin (Bld) [Mass/Vol] 12.4 g/dL Normal 12.0-16.0 [facility] Comment on above: Performed By: #### C SUITE #### [facility] [address] [place] [address] Dr. Eboni Smith IG # 0.02 10e3/ul Normal 0.00-0.03 [facility] Comment on above: Performed By: #### C SUITE #### [facility] [address] [place] [address] Dr. Eboni Smith IG % 0.2 % Normal 0.0-0.5 [facility] Comment on above: Performed By: #### C SUITE #### [facility] [address] [place] [address] Dr. Eboni Smith LYMPH # 2.3 103/ul Normal 1.2-3.8 [facility] Comment on above: Performed By: #### C SUITE #### [facility] [address] [place] [address] Dr. Eboni Smith Lymphocytes/100 WBC (Bld) 27.7 % Normal 20.5-60.0 [facility] Comment on above: Performed By: #### C SUITE #### [facility] [address] [place] [address] Dr. Eboni Smith MANUAL DIFF REQ NO Normal [facility] Comment on above: Performed By: #### C SUITE #### [facility] [address] [place] [address] Dr. Eboni Smith MCH (RBC) [Entitic mass] 29.1 pg Normal 26.7-34.0 [facility] Comment on above: Performed By: #### C SUITE #### [facility] [address] [place] [address] Dr. Eobni Smith MCHC (RBC) [Mass/Vol] 31.9 g/dL Normal 29.9-35.2 [facility] Comment on above: Performed By: #### C SUITE #### [facility] [address] [address] [address] Eboni Smith MCV (RBC) [Entitic vol] 91.3 fL Normal 81.0-99.0 [facility] Comment on above: Performed By: #### C SUITE #### [facility] [address] [address] [address] Eboni Smith MONO # 0.6 103/ul Normal 0.3-0.8 [facility] Comment on above: Performed By: #### C SUITE #### [facility] [address] [place] [address] Dr. Eboni Smith Monocytes/100 WBC (Bld) 6.7 % Normal 1.7-12.0 [facility] Comment on above: Performed By: #### C SUITE #### [facility] [address] [place] [address] Dr. Eboni Smith NEUT # 5.3 103/ul Normal 1.4-6.5 [facility] Comment on above: Performed By: #### C SUITE #### [facility] [address] [place] [address] Dr. Eboni Smith Neutrophils/100 WBC (Bld) 63.7 % Normal 43.0-75.0 [facility] Comment on above: Performed By: #### C SUITE #### [facility] [address] [place] [address] Dr. Eboni Smith Platelet mean volume (Bld) [Entitic vol] 8.3 fL Critically low 9.5-13.5 [facility] Comment on above: Performed By: #### C SUITE #### [facility] [address] [place] [address] Dr. Eboni Smith PLT 185 103/ul Normal 150-450 [facility] Comment on above: Performed By: #### C SUITE #### [facility] [address] [place] [address] Dr. Eboni Smith RBC 4.26 106/ul Normal 4.20-5.40 [facility] Comment on above: Performed By: #### C SUITE #### [facility] [address] [place] [address] Dr. Eboni Smith WBC 8.2 103/ul Normal 4.0-11.0 [facility] Comment on above: Performed By: #### C SUITE #### [facility] [address] [place] [address] Dr. Eboni Smith PROF 14(COMP METB)on 022 Albumin [Mass/Vol] 3.5 g/dL Normal 3.4-5.0 [facility] Comment on above: Performed By: #### C SUITE #### [facility] [address] [place] [address] Dr. Eboni Smith Albumin/Globulin [Mass ratio] 1.0 {ratio} Normal [facility] Comment on above: Performed By: #### C SUITE #### [facility] [address] [place] [address] Dr. Eboni Smith ALP [Catalytic activity/Vol] 70 U/L Normal 46-116 [facility] Comment on above: Performed By: #### C SUITE #### [facility] [address] [place] [address] Dr. Eboni Smith ALT [Catalytic activity/Vol] 23 U/L Normal 14-59 [facility] Comment on above: Performed By: #### C SUITE #### [facility] [address] [place] [address] Dr. Eboni Smith Anion gap [Moles/Vol] 12.1 mmol/L Normal [facility] Comment on above: Performed By: #### C SUITE #### [facility] [address] [place] [address] Dr. Eboni Smith AST [Catalytic activity/Vol] 10 U/L Critically low 15-37 [facility] Comment on above: Performed By: #### C SUITE #### [facility] [address] [place] [address] Dr. Eboni Smith Bilirubin [Mass/Vol] 0.3 mg/dL Normal 0.2-1.0 [facility] Comment on above: Performed By: #### C SUITE #### [facility] [address] [place], [place] [id number] Dr. Eboni Smith Calcium [Mass/Vol] 8.9 mg/dL Normal 8.5-10.1 [facility] Comment on above: Performed By: #### C SUITE #### [facility] [address] [place] [address] Dr. Eboni Smith Chloride [Moles/Vol] 104 mmol/L Normal 98-107 [facility] Comment on above: Performed By: #### C SUITE #### [facility] [address] [place] [address] Dr. Eboni Smith CO2 [Moles/Vol] 27.5 mmol/L Normal 21.0-32.0 [facility] Comment on above: Performed By: #### C SUITE #### [facility] [address] [place] [address] Dr. Eboni Smiht Creatinine [Mass/Vol] 0.88 mg/dL Normal 0.55-1.02 [facility] Comment on above: Performed By: #### C SUITE #### [facility] [address] [place] [address] Dr. Eboni Smith EGFR-AF GAMBIAN >60 Normal >=60 [facility] Comment on above: Performed By: #### C SUITE #### [facility] [address] [place] [address] Dr. Eboni Smith EGFR-NON AF GAMBIAN >60 Normal >=60 [facility] Comment on above: Performed By: #### C SUITE #### [facility] [address] [place] [address] Dr. Eboni Smith Globulin (S) [Mass/Vol] 3.4 g/dL Normal [facility] Comment on above: Performed By: #### C SUITE #### [facility] [address] [place] [address] Dr. Eboni Smith Glucose [Mass/Vol] 105 mg/dL Normal 74-106 [facility] Comment on above: Performed By: #### C SUITE #### [facility] [address] [place] [address] Dr. Eboni Smith Potassium [Moles/Vol] 4.3 mmol/L Normal 3.5-5.1 [facility] Comment on above: Performed By: #### C SUITE #### [facility] [address] [address] [address] Eboni Smith Protein [Mass/Vol] 6.9 g/dL Normal 6.4-8.2 [facility] Comment on above: Performed By: #### C SUITE #### [facility] [address] [address] [address] Eboni Smith Sodium [Moles/Vol] 139 mmol/L Normal 136-145 [facility] Comment on above: Performed By: #### C SUITE #### [facility] [address] [address] [address] Eboni Smith Urea nitrogen [Mass/Vol] 26.0 mg/dL Critically high 7.0-18.0 [facility] Comment on above: Performed By: #### C SUITE #### [facility] [address] [place] [address] Dr. Eboni Smith Urea nitrogen/Creatinine [Mass ratio] 29.5 mg/mg Normal [facility] Comment on above: Performed By: #### C SUITE #### [facility] [address] [address] [address] Eboni Smith SED RATE [facility] 2021 SED RATE 8 mm/hr Normal <=30 [facility] Comment on above: Performed By: #### C BC #### [facility] [address] [place] [address] Dr. Eboni Smith UA RANDOM W/MICROSCOPICon BACTERIA TRACE Abnormal NONE SEEN [facility] Comment on above: Performed By: #### C SUITE #### [facility] [address] [address] [address] Eboni Smith Bilirubin Ql (U) Negative Normal NEGATIVE [facility] Comment on above: Performed By: #### C SUITE #### [facility] [address] [place] [address] Dr. Eboni Smith CAST NONE SEEN Normal NONE SEEN [facility] Comment on above: Performed By: #### C SUITE #### [facility] [address] [place] [address] Dr. Eboni Smith Clarity (U) SL CLOUDY Abnormal CLEAR [facility] Comment on above: Performed By: #### C SUITE #### [facility] [address] [place] [address] Dr. Eboni Smith Color (U) LT. YELLOW Normal YELLOW [facility] Comment on above: Performed By: #### C SUITE #### [facility] [address] [place] [address] Dr. Eboni Smith Crystals LM Nom (Urine sed) NONE SEEN Normal NONE SEEN [facility] Comment on above: Performed By: #### C SUITE #### [facility] [address] [place] [address] Dr. Eboni Smith Epithelial cells LM Ql (Urine sed) RARE Normal NONE SEEN /RARE [facility] Comment on above: Performed By: #### C SUITE #### [facility] [address] [place] [address] Dr. Eboni Smith Glucose Ql (U) Negative Normal NEGATIVE The [facility] Comment on above: Performed By: #### C SUITE #### [facility] [address] [place] [address] Dr. Eboni Smith Hemoglobin Ql (U) SMALL Abnormal NEGATIVE [facility] Comment on above: Performed By: #### C SUITE #### [facility] [address] [place] [address] Dr. Eboni Smith Ketones Ql (U) Negative Normal NEGATIVE The [facility] Comment on above: Performed By: #### C SUITE #### [facility] [address] [place] [address] Dr. Eboni Smith LEUKOCYTES SMALL Abnormal NEGATIVE [facility] Comment on above: Performed By: #### C SUITE #### [facility] [address] [place] [address] Dr. Eboni Smith MUCOUS NONE SEEN Normal NONE SEEN [facility] Comment on above: Performed By: #### C SUITE #### [facility] [address] [place] [address] Dr. Eboni Smith Nitrite Ql (U) Negative Normal NEGATIVE The [facility] Comment on above: Performed By: #### C SUITE #### [facility] [address] [address] [address] Eboni Smith pH (U) 5.0 [pH] Normal 5-9 [facility] Comment on above: Performed By: #### C SUITE #### [facility] [address] [place] [address] Dr. Eboni Smith RBC 0-2 Normal 0-2 [facility] Comment on above: Performed By: #### C SUITE #### [facility] [address] [place] [address] Dr. Eboni Smith SPEC GRAVITY 1.025 Normal 1.005-<=1.02 5 [facility] Comment on above: Performed By: #### C SUITE #### [facility] [address] [place] [address] Dr. Eboni Smith UA PROTEIN Negative Normal NEGATIVE/ TRACE [facility] Comment on above: Performed By: #### C SUITE #### [facility] [address] [place] [address] Dr. Eboni Smith Urobilinogen Qn (U) 0.2 {Lora'U}/dL Normal 0.2 - 1. 0 [facility] Comment on above: Performed By: #### C SUITE #### [facility] [address] [place] [address] Dr. Eboni Smith WBC 2-5 Abnormal NONE SEEN [facility] Comment on above: Performed By: #### C SUITE #### [facility] [address] [place] [address] Dr. Eboni Smith XR LSPINE 2_3 VIEWSon [...] EULALIA MORALES Date: 2022-02-28 16:24 Normal [facility] COVID-19 Positive/Negativeon 03-15-2021 SARS-CoV-2 (COVID-19) N gene TERRIE+probe Ql (Resp) Negative Negative [facility] Comment on above: Testing for SARS-CoV -2 by RT-PCRThis test was developed and its performance characteristics determined by [employer] and validated at the [facility]. This test has not been FDA [...] Reminder/Recall done 08/25/19 done, results negative Normal [facility] Operative Reporton 9 Operative Report Result type: Progres s Note-Physician Result date: September 02, 2019 14:16 EST Result status: Auth (Verified) Result title: EU Local Female Cystoscopy w/ or w/o UD - FT Performed by: David ALARCON MD on September 02, 2019 14:17 EST Verified by: David ALARCON MD on September 02, 2019 14:17 EST Encounter info: [id number], [facility], Outpatient, 09/02/2019 - 09/02/2019 * [...] and Time Signed: 09/02/19 14:17 EST Normal [facility] Comment on above: Result Comment: Elec [...] home with antibiotic coverage, Follow up arranged. [facility] Comment on above: Result Comment: ERRO R - WRONG FOLDER Electronically Signed By: David ALARCON MD\.br\Date and Time Signed: 09/02/19 14:17 EST Coding Summary.on 09-03-2019 Coding Summary. CODING DATE: 09/03/[address] [facility] DSC STATUS: Home (Routine DC) PAYOR: [...] Jessica Morillo Date Saved: 09/03/2019 09:50 am [facility] Main OR Intraoperative Recor don 09-02-2019 Main OR Intraoperative Record IntraOp Document Type FTURO Summary Primary Physician: David ALARCON MD Finalized Date/Time: 09/02/19 14:16:24 Pt. Name: BASHIR COATS./Sex: 1955 Female Med Rec #: [id number] Physician: David ALARCON MD Financial #: [id number] Pt. Type: O Room/Bed: / Admit/Disch: 09/02/19 12:39:57 - Institution: Case Times FTURO Entry 1 Patient Times In Room 09/02/19 14:07:00 Out Room 09/02/19 14:17:00 Procedure Times Start 09/02/19 14:11:00 Stop 09/02/19 14:14:00 Anesthesia Times Last Modified By: Jose De Jesus MORRISSEY, RNHilda 09/02/19 14:14:48 Case Attendance FTURO Entry 1 Entry 2 Entry 3 Case Attendee AGNES KEEN, David MORRISSEY, RN, Yarely VELARDE, Noemi Stevens Role Performed Surgeon - Primary Director Of National Sales - Primary Scrub - Primary Time In 09/02/19 14:07:00 09/02/19 14:07:00 09/02/19 14:07:00 Time Out 09/02/19 14:17:00 09/02/19 14:17:00 09/02/19 14:17:00 Procedure CYSTOSCOPY LOCAL(.) CYSTOSCOPY LOCAL(.) CYSTOSCOPY LOCAL(.) Comments Last Modified By: Jose De Jesus MORRISSEY, RN, Jose De Jesus MORRISSEY, RN, Jose De Jesus MORRISSEY, RUBIO, Hilda 09/02/19 14:15:27 Hilda 09/02/19 14:15:27 Hilda 09/02/19 14:15:27 Surgical Procedures FTURO Entry 1 Procedure Description Procedure CYSTOSCOPY LOCAL Modifiers . Surgeon Description CYSTOSCOPY LOCAL Primary Procedure Yes Primary Surgeon David ALARCON MD Start 09/02/19 14:11:00 Stop 09/02/19 14:14:00 Anesthesia Type Local Surgical Service Urology Wound Class 2 - Clean-Contaminated Last Modified By: Jose De Jesus MORRISSEY, Hilda BERGERON 09/02/19 14:15:30 General Case Data FTURO Pre-Care Text: Classifies surgical wound, implements aseptic technique, initiates traffic control Entry 1 Case Information OR URO 1 FT Case Level None Wound Class 2 - Clean-Contaminated Specialty Urology Preop Diagnosis HEMATURIA Postop Same As Preop No Postop Diagnosis HEMATURIA/normal exam Outcomes Met? Yes Last Modified By: Jose De Jesus MORRISSEY, Hilda BERGERON 09/02/19 14:15:40 Post-Care Text: The patient is [...] Verified Availability Equipment, Medication Time Out David AALRCON MD, Verified (If Participants Jose De Jesus MORRISSEY RN, Applicable) Yarely Stevens CST, Noemi Time Out Complete 09/02/19 14:11:00 Allergies [...] Jesus MORRISSEY RN, Kelly 09/02/19 14:16 Normal [facility] Main OR Preoperative Recordo n 09-02-2019 Main OR Preoperative Record Holding Area Document Type FTURO Summary Primary Physician: David ALARCON MD Finalized Date/Time: 09/02/19 14:09:52 Pt. Name: BASHIR COATS/Sex: 1955 Female Med Rec #: [id number] Physician: David ALARCON MD Financial #: [id number] Pt. Type: O Room/Bed: / Admit/Disch: 09/02/19 [...] Jesus MORRISSEY RN, Kelly 09/02/19 14:09 Normal [facility] MRI LUMBAR SPINE WO CONTRAST on 08-07-2018 MRI LUMBAR SPINE [facility] CONTRAST [facility] [address] [place] [address] Patient Name: BASHIR COATS : 1955Sex: FAge: Race: WhiteMRN: [id number]. Location: 84Patient Status: DVisit #: [id number] Date: 07/10/2018 12:35:00 PMCompleted Date: 08/07/2018 02:49 PMRequesting Provider: GARETH REYES Attending Provider: Report Copy To: Signs & Symptoms: M54.5 Low back pain Y82Mtwssfr: Kacie, NO FB per SS [facility] auth # [id number] 07/29/18-09/27/18 [id number] *erComments: , , , Ordering Provider - GARETH REYES MD , Exam: MRI LUMBAR SPINE WO CONTRASTAccession #: [id number] MRI LUMBAR SPINE WO CONTRAST 08/07/2018 2:49 [...] above. Electronically signed by:Parul Whitfield. Transcribed by: [email or web address], User Resident: Electronically Signed by: PARUL WHITFIELD @ 08/08/2018 02:33 PM Normal [facility] [place] Comment on above: Order Comment: , , = ========= , Ordering Provider - GARETH REYES MD , Operative Reporton 8 Operative Report MR#: [id number] [facility] Pt. Name: Bashir Coats Room #: 0C Discharge Date: Birthdate: 1955 OPERATIVE REPORTDATE OF SURGERY: 07/31/2018SURGEON: Pavel Leon M.D.PREOPERATIVE DIAGNOSIS: Soft tissue calcifications, right small fingertip.POSTOPERATI VE DIAGNOSIS: Soft tissue calcifications, right small fingertip.PROCEDURE: Excision of calcific lesions, right small finger tip.TIRE MOLD ENGRAVER: Christopher Gay M.D.ANESTHESIA: Local 1% plain lidocaine.INDICATION [...] 07/31/2018/11:05 A/Pavel Leon M.D.Date Trans: 07/31/2018 12:55 P/Johnson_JN:[id number]: Gee Merchant D.O. [address] [facility] [address] [facility] Vital Signs Date Time Vital Sign Value Performing Clinician Facility 10-28-2024 14:35-0500 Body height 149.86 cm [facility] 10-28-2024 14:35-0500 Body mass index (BMI) [Ratio] 36.8 kg/m2 [facility] 10-28-2024 14:35-0500 Body weight 82.78 kg [facility] 10-28-2024 14:35-0500 Diastolic blood pressure 83 mm[Hg] [facility] 10-28-2024 14:35-0500 Heart rate 76 /min [facility] 10-28-2024 14:35-0500 Respiratory rate 12 /min [facility] 10-28-2024 14:35-0500 Systolic blood pressure 139 mm[Hg] [facility] 08-13-2024 11:52-0400 Body height 149.86 cm DO Steve Ball Work Phone: [facility] 08-13-2024 11:52-0400 Body mass index (BMI) [Ratio] 35.7 kg/m2 DO Steve Ball Work Phone: [facility] 08-13-2024 11:52-0400 Body temperature 97.9 [degF] DO Steve Ball Work Phone: [facility] 08-13-2024 11:52-0400 Body weight 80.28 kg DO Steve Ball Work Phone: [facility] 08-13-2024 11:52-0400 Diastolic blood pressure 82 mm[Hg] DO Steve Ball Work Phone: [facility] 08-13-2024 11:52-0400 Heart rate 84 /min DO Steve Ball Work Phone: [facility] 08-13-2024 11:52-0400 SaO2% (BldA) [Mass fraction] 98 % DO Steve Ball Work Phone: [facility] 08-13-2024 11:52-0400 Systolic blood pressure 136 mm[Hg] DO Steve Ball Work Phone: [facility] 07-15-2024 14:44-0400 Body height 152.4 cm Sujey Camargo MD Work Phone: [facility] 07-15-2024 14:44-0400 Body mass index (BMI) [Ratio] 34.57 kg/m2 Sujey Camargo MD Work Phone: [facility] 07-15-2024 14:44-0400 Body weight 80.29 kg Sujey Camargo MD Work Phone: [facility] 07-15-2024 14:44-0400 Diastolic blood pressure 74 mm[Hg] Sujey Camargo MD Work Phone: [facility] 07-15-2024 14:44-0400 Systolic blood pressure 142 mm[Hg] Sujey Camargo MD Work Phone: [facility] 07-02-2024 14:40-0400 Body height 152.4 cm DO Steve Ball Work Phone: [facility] 07-02-2024 14:40-0400 Body mass index (BMI) [Ratio] 34.9 kg/m2 DO Steve Ball Work Phone: [facility] 07-02-2024 14:40-0400 Body weight 81.19 kg DO Steve Ball Work Phone: [facility] 07-02-2024 14:40-0400 Diastolic blood pressure 78 mm[Hg] DO Steve Ball Work Phone: [facility] 07-02-2024 14:40-0400 Heart rate 72 /min DO Steve Ball Work Phone: [facility] 07-02-2024 14:40-0400 Respiratory rate 12 /min DO Steve Ball Work Phone: [facility] 07-02-2024 14:40-0400 Systolic blood pressure 141 mm[Hg] DO Steve Ball Work Phone: [facility] 06-09-2024 14:21-0400 Body height 152.4 cm DO Steve Ball Work Phone: [facility] 06-09-2024 14:21-0400 Body mass index (BMI) [Ratio] 34.2 kg/m2 DO Steve Ball Work Phone: [facility] 06-09-2024 14:21-0400 Body weight 79.37 kg DO Steve Ball Work Phone: [facility] 02-06-2024 12:05-0400 Body height 152.4 cm DO Steve Ball Work Phone: [facility] 02-06-2024 12:05-0400 Body mass index (BMI) [Ratio] 34.2 kg/m2 DO Steve Ball Work Phone: [facility] 02-06-2024 12:05-0400 Body temperature 98 [degF] DO Steve Ball Work Phone: [facility] 02-06-2024 12:05-0400 Body weight 79.37 kg DO Steve Ball Work Phone: [facility] 02-06-2024 12:05-0400 Diastolic blood pressure 70 mm[Hg] DO Steve Ball Work Phone: [facility] 02-06-2024 12:05-0400 Heart rate 76 /min DO Steve Ball Work Phone: [facility] 02-06-2024 12:05-0400 Respiratory rate 16 /min DO Steve Ball Work Phone: [facility] 02-06-2024 12:05-0400 SaO2% (BldA) [Mass fraction] 97 % DO Steve Ball Work Phone: [facility] 02-06-2024 12:05-0400 Systolic blood pressure 138 mm[Hg] DO Steve Ball Work Phone: [facility] 12-26-2023 12:07-0400 Body height 152.4 cm DO Steve Ball Work Phone: [facility] 12-26-2023 12:07-0400 Body mass index (BMI) [Ratio] 34.2 kg/m2 DO Steve Ball Work Phone: [facility] 12-26-2023 12:07-0400 Body temperature 97.8 [degF] DO Steve Ball Work Phone: [facility] 12-26-2023 12:07-0400 Body weight 79.37 kg DO Steve Ball Work Phone: [facility] 12-26-2023 12:07-0400 Diastolic blood pressure 64 mm[Hg] DO Steve Ball Work Phone: [facility] 12-26-2023 12:07-0400 Heart rate 84 /min DO Steve Ball Work Phone: [facility] 12-26-2023 12:07-0400 Respiratory rate 16 /min DO Steve Ball Work Phone: [facility] 12-26-2023 12:07-0400 SaO2% (BldA) [Mass fraction] 98 % DO Steve Ball Work Phone: [facility] 12-26-2023 12:07-0400 Systolic blood pressure 116 mm[Hg] DO Steve Ball Work Phone: [facility] 10-25-2023 13:45-0500 Body height 154.94 cm Alex Newberry Other [facility] 10-25-2023 13:45-0500 Body mass index (BMI) [Ratio] 34.38 kg/m2 Alex Newberry Other [employer] Other 10-25-2023 13:45-0500 Body weight 82.56 kg Alex Newberry Other [employer] Other 10-25-2023 13:45-0500 Body weight 82.55 kg DO Steve Ball Work Phone: [facility] 10-09-2023 15:00-0500 Body height 154.94 cm Steve Ball Other [employer] Other 10-09-2023 15:00-0500 Body mass index (BMI) [Ratio] 34.38 kg/m2 Steve Ball Other [employer] Other 10-09-2023 15:00-0500 Body weight 82.56 kg Steve Ball Other [employer] Other 10-09-2023 15:00-0500 Diastolic blood pressure 81 mm[Hg] Steve Ball Other [employer] Other 10-09-2023 15:00-0500 Respiratory rate 12 /min Steve Ball Other [employer] Other 10-09-2023 15:00-0500 Systolic blood pressure 130 mm[Hg] Steve Ball Other [employer] Other 06-07-2023 12:45-0400 Body height 154.94 cm Chiara Damon Other [employer] Other 06-07-2023 12:45-0400 Body mass index (BMI) [Ratio] 34.27 kg/m2 Chiara Damon Other [employer] Other 06-07-2023 12:45-0400 Body temperature 98.9 [degF] Chiara Damon Other [employer] Other 06-07-2023 12:45-0400 Body weight 82.28 kg Chiara Damon Other [employer] Other 06-07-2023 12:45-0400 Diastolic blood pressure 75 mm[Hg] Chiara Marisol Other [employer] Other 06-07-2023 12:45-0400 Respiratory rate 18 /min Chiara Marisol Other [employer] Other 06-07-2023 12:45-0400 SaO2% (BldA) [Mass fraction] 98 % Chiara Marisol Other [employer] Other 06-07-2023 12:45-0400 Systolic blood pressure 155 mm[Hg] Chiara Marisol Other [employer] Other 01-29-2023 15:50-0400 Body height 154.94 cm Chiara Marisol Other [employer] Other 01-29-2023 15:50-0400 Body mass index (BMI) [Ratio] 34.01 kg/m2 Chiara Marisol Other [employer] Other 01-29-2023 15:50-0400 Body temperature 98 [degF] Chiara Marisol Other [employer] Other 01-29-2023 15:50-0400 Body weight 81.65 kg Chiara Marisol Other [employer] Other 01-29-2023 15:50-0400 Diastolic blood pressure 81 mm[Hg] Chiara Marisol Other [employer] Other 01-29-2023 15:50-0400 Respiratory rate 18 /min Chiara Marisol Other [employer] Other 01-29-2023 15:50-0400 SaO2% (BldA) [Mass fraction] 93 % Chiara Damon Other [employer] Other 01-29-2023 15:50-0400 Systolic blood pressure 153 mm[Hg] Chiara Damon Other [employer] Other 12-16-2022 13:55-0500 Body height 154.94 cm Chiara Damon Other [employer] Other 12-16-2022 13:55-0500 Body mass index (BMI) [Ratio] 34.84 kg/m2 Chiara Damon Other [employer] Other 12-16-2022 13:55-0500 Body temperature 98.8 [degF] Chiara Damon Other [employer] Other 12-16-2022 13:55-0500 Body weight 83.64 kg Chiara Damon Other [employer] Other 12-16-2022 13:55-0500 Diastolic blood pressure 69 mm[Hg] Chiara Damon Other [employer] Other 12-16-2022 13:55-0500 Respiratory rate 18 /min Chiara Damon Other [employer] Other 12-16-2022 13:55-0500 Systolic blood pressure 140 mm[Hg] Chiara Marisol Other [employer] Other 12-06-2022 13:36-0500 Diastolic blood pressure 66 mm[Hg] DO Steve Ball Work Phone: [facility] 12-06-2022 13:36-0500 Heart rate 77 /min DO Steve Ball Work Phone: [facility] 12-06-2022 13:36-0500 Respiratory rate 16 /min DO Steve Ball Work Phone: [facility] 12-06-2022 13:36-0500 SaO2% (BldA) [Mass fraction] 98 % DO Steve Ball Work Phone: [facility] 12-06-2022 13:36-0500 Systolic blood pressure 118 mm[Hg] DO Steve Ball Work Phone: [facility] 12-06-2022 12:07-0500 Body height 152.4 cm DO Steve Ball Work Phone: [facility] 12-06-2022 12:07-0500 Body temperature 98.7 [degF] DO Steve Ball Work Phone: [facility] 12-06-2022 12:07-0500 Body weight 80.73 kg DO Steve Ball Work Phone: [facility] 09-20-2022 14:32-0500 Diastolic blood pressure 80 mm[Hg] DO Steve Ball Work Phone: [facility] 09-20-2022 14:32-0500 Heart rate 72 /min DO Steve Ball Work Phone: [facility] 09-20-2022 14:32-0500 Respiratory rate 16 /min DO Steve Ball Work Phone: [facility] 09-20-2022 14:32-0500 SaO2% (BldA) [Mass fraction] 98 % DO Steve Ball Work Phone: [facility] 09-20-2022 14:32-0500 Systolic blood pressure 140 mm[Hg] DO Steve Ball Work Phone: [facility] 09-20-2022 14:02-0500 Inhaled oxygen flow rate 6 L/min DO Steve Ball Work Phone: [facility] 09-20-2022 12:20-0500 Body height 149.86 cm DO Steve Ball Work Phone: [facility] 09-20-2022 12:20-0500 Body temperature 99.2 [degF] DO Steve Armendariz Work Phone: [facility] 09-20-2022 12:20-0500 Body weight 79.83 kg DO Steve Armendariz Work Phone: [facility] Encounters Encounter Date Encounter Type Care Provider Facility Start: 10-28-2024 End: 10-28-2024 ambulatory [facility] Work Phone: Start: 10-28-2024 End: 10-28-2024 Patient encounter procedure [facility] Work Phone: Start: 09-16-2024 Non-patient / Non-visit [facility] Work Phone: Start: 08-13-2024 End: 08-13-2024 ambulatory DO Steve Armendariz Work Phone: [facility] Work Phone: Start: 08-13-2024 End: 08-13-2024 Patient encounter procedure DO Steve Armendariz Work Phone: [facility]ician [facility] [facility] Work Phone: Start: 07-16-2024 End: 07-16-2024 ambulatory DO Steve Armendariz Work Phone: [facility] Work Phone: Start: 07-16-2024 End: 07-16-2024 Patient encounter procedure DO Steve Armendariz Work Phone: [facility] [employer] [facility] Work Phone: Start: 07-15-2024 End: 07-15-2024 Office outpatient new 45 minutes Sjuey Camargo MD Work Phone: [facility] Comment on above: Presbylarynges (Prim ottoniel Dx); Hoarse; LPRD (laryngopharyngeal reflux disease) Start: 07-15-2024 End: 07-15-2024 ambulatory SUJEY CAMARGO Not Available Start: 07-15-2024 End: 07-15-2024 Lillian Camargo MD Work Phone: [facility] Start: 07-15-2024 End: 07-15-2024 Lillian Camargo MD Work Phone: [facility] Start: 07-11-2024 Non-patient / Non-visit DO Ermias Armendariz Work Phone: [facility] Work Phone: Start: 07-02-2024 End: 07-02-2024 ambulatory DO Steve Ball Work Phone: [facility] Work Phone: Start: 07-02-2024 End: 07-02-2024 Patient encounter procedure DO Steve Ball Work Phone: [facility] Physician [facility] Work Phone: Start: 06-29-2024 Patient encounter procedure DO Steve Ball Work Phone: [facility] Start: 06-17-2024 Non-patient / Non-visit DO Ermias Armendariz Work Phone: [facility] Work Phone: Start: 06-09-2024 End: 06-09-2024 ambulatory DO Steve Ball Work Phone: [facility] Work Phone: Start: 06-09-2024 End: 06-09-2024 Patient encounter procedure DO Steve Ball Work Phone: [facility] [employer] [facility] Work Phone: Start: 06-05-2024 End: 06-05-2024 Patient encounter procedure DO Steve Ball Work Phone: [facility] Work Phone: Start: 06-05-2024 End: 06-05-2024 ambulatory DO Steve Ball Work Phone: [facility] Work Phone: Start: 05-29-2024 End: 05-29-2024 ambulatory BERTIN BROWNE Not Available Start: 05-27-2024 End: 05-27-2024 ambulatory [facility] Work Phone: Start: 05-27-2024 End: 05-27-2024 Patient encounter procedure [facility] [employer] [facility] Work Phone: Start: 05-15-2024 End: 05-15-2024 ambulatory BERTIN BROWNE Not Available Start: 03-18-2024 End: 03-18-2024 ambulatory BERTIN BROWNE Not Available Start: 02-26-2024 End: 02-26-2024 ambulatory BERTIN BROWNE Not Available Start: 02-06-2024 End: 02-06-2024 ambulatory DO Steve Ball Work Phone: [facility] Work Phone: Start: 02-06-2024 End: 02-06-2024 Patient encounter procedure DO Steve Ball Work Phone: [facility] Work Phone: Start: 01-22-2024 End: 01-22-2024 ambulatory BERTIN BROWNE Not Available Start: 01-14-2024 End: 01-14-2024 Patient encounter procedure DO Steve Ball Work Phone: [facility] [place] Work Phone: Start: 01-14-2024 End: 01-14-2024 ambulatory DO Steve Ball Work Phone: [facility] Work Phone: Start: 12-27-2023 End: 12-27-2023 ambulatory BERTIN Geoff BROWNE Not Available Start: 12-26-2023 End: 12-26-2023 Patient encounter procedure DO Steve Ball Work Phone: [facility]ician [employer] [facility] Work Phone: Start: 12-25-2023 Non-patient / Non-visit DO Ermias Armendariz Work Phone: [facility] [email or web address] Work Phone: Start: 12-04-2023 End: 12-04-2023 ambulatory BERTIN W ELLIS Not Available Start: 10-25-2023 End: 10-25-2023 ambulatory Alex Newberry Other [facility] [employer] Other Start: 10-25-2023 Office outpatient vi sit 15 minutes Alex Newberry [facility] Start: 10-25-2023 End: 10-25-2023 Patient encounter procedure DO Steve Armendariz Work Phone: [facility] Physician [facility] Work Phone: Start: 10-09-2023 End: 10-09-2023 ambulatory Steve Armendariz Other [facility] [employer] Other Start: 10-09-2023 Office outpatient vi sit 25 minutes Steve Armendariz [facility] Start: 10-09-2023 Telephone encounter Steve Armendariz [facility] Start: 06-07-2023 Office outpatient vi sit 15 minutes Chiara Damon [facility] Start: 06-07-2023 End: 06-07-2023 ambulatory DO Steve Armendariz Work Phone: [facility] Work Phone: Start: 06-07-2023 End: 06-07-2023 Patient encounter procedure DO Steve Armendariz Work Phone: [facility] Work Phone: Start: 02-08-2023 End: 02-09-[address] DOCTOR BROWN Facility: Start: 01-29-2023 End: 01-29-2023 ambulatory Chiara Damon Other [facility] [employer] Other Start: 01-29-2023 Office outpatient vi sit 15 minutes Chiara Aranamond [facility] Start: 12-16-2022 End: 12-16-2022 Patient encounter procedure DO Steve Armendariz Work Phone: [facility] Work Phone: Start: 12-16-2022 End: 12-16-2022 ambulatory DO Steve Ball Work Phone: [facility] Work Phone: Start: 12-16-2022 Office outpatient vi sit 15 minutes Chiara Aranamond [facility] Start: 12-06-2022 Telephone encounter Steve Armendariz [facility] Start: 12-06-2022 End: 12-06-2022 Admission to same day surgery center DO Steve Armendariz Work Phone: [facility] Work Phone: Start: 12-06-2022 End: 12-06-2022 ambulatory DO Steve Armendariz Work Phone: [facility] Work Phone: Start: 09-28-2022 End: 09-29-[address] DOCTOR BROWN Facility:[facility] Start: 09-20-2022 End: 09-20-2022 Admission to same day surgery center DO Steve Armendariz Work Phone: [facility] Work Phone: Start: 09-18-2022 End: 09-19-[address] ANGELIC VICK Facility:[facility] Start: 09-18-2022 End: 09-18-2022 ambulatory DO Steve Liliam Work Phone: [facility] Work Phone: Start: 09-18-2022 End: 09-18-2022 Patient encounter procedure DO Steve Armendariz Work Phone: [facility] Start: 07-26-2022 End: 08-25-[address] STEVE ARMENDARIZ Facility:[facility] Start: 06-09-2022 End: 06-10-[address] DOCTOR BROWN Facility:[facility] Start: 04-24-2022 End: 05-19-[address] STEVE ARMENDARIZ Facility:[facility] Start: 04-20-2022 Adult health examination Duran falk Marisol Other [employer] Other Start: 03-10-2022 End: 03-11-[address] STEVE ARMENDARIZ Facility:[facility] Start: 02-28-2022 End: 03-01-[address] STEVE ARMENDARIZ Facility:[facility] Start: 03-15-2021 End: 03-15-2021 Patient encounter procedure Pedro Sara Work Phone: -Pre-Surgical Testing Start: 08-07-2018 End: 08-08-2018 Patient encounter procedure GARETH REYES Facility:[facility] Start: 07-31-2018 End: 08-01-2018 Patient encounter procedure PAVEL LEON Facility:[facility] Procedures Date Procedure Procedure Detail Performing [...] Start: 04-12-2015 General examination of patient Chiara Arana stone Other Depression screening Chiara Damon Other Screening for malign ant neoplasm of breast Chiara Damon Other Screening for malign ant neoplasm of colon Steve Armendariz Other Plan of Treatment Date Care Activity Detail Author Start: 07-15-2024 End: 07-15-2024 Patient encounter procedure 07/15/2024 2:40 PM EDT Office Visit [facility] [address] [facility] [address] [place] [address] Sujey Camargo MD [address] [facility] [address] [place] [address] Arrived [facility] Comment on above: Arrived Start: 07-02-2024 Patient referral [facility] Work Phone: Start: 01-14-2024 Duplex scan of lower limb veins US venous duplex LE BI [facility] Start: 01-14-2024 US Lower extremity vein - bilateral [facility] Start: 12-06-2022 [facility] Start: 09-20-2022 [facility] MG Breast - bilatera l Screening [facility] Patient Education [facility] Work Phone: Patient referral [facility] Work Phone: US Kidney - bilateral [facility] XR Lumbar spine Views [facility] Payers Date Payer Category Payer Unknown [id number] 2023 Unknown [id number] 1960 Private Health Insurance 101 [id number] 1955 Unknown [id number] 1955 Unknown [id number] 1955 Unknown [id number] 2.16.840.1.871319.3.579.2.593 1955 Unknown [id number] 2.16.840.1.446105.3.579.2.593 1955 Unknown [id number] 2.16.840.1.974158.3.579.2.593 1954 Unknown [id number] 2.16.840.1.859736.3.579.2.593 1954 Unknown [id number] 2.16.840.1.171913.3.579.2.593 1954 Unknown [id number] 2..840.1.727115.3.579.2.593 1954 Unknown [id number] 2..840.1.264200.3.579.2.593 1954 Unknown [id number] 2..840.1.097202.3.579.2.593 1954 Unknown [id number] 2..840.1.814423.3.579.2.593 1954 Unknown [id number] 2.16.840.1.564659.3.579.2.1259 1954 Unknown [id number] 2.16.840.1.778690.3.579.2.1259 1954 Unknown [id number] 2.16.840.1.338305.3.579.2.1259 1954 Unknown [id number] 2.16.840.1.944158.3.579.2.125 1954 Unknown [id number] 2.16.840.1.748898.3.579.2.1259 1954 Unknown [id number] 2.16.840.1.261762.3.579.2.1259 1955 Unknown [id number] 2.16.840.1.317438.3.579.2.1259 1955 Unknown [id number] 2.16.840.1.828456.3.579.2.1259 Medicaid [id number] Private Health Insurance [employer]uran ce [id number]-pay [id number] Unknown [id number] Social History Date Type Detail Facility Tobacco smoking stat [facility] Unknown if ever smoked [facility] Start: 1955 Sex Assigned At Female F [facility] Start: 12-06-2022 End: 12-03-2023 Tobacco smoking status NHIS Never smoked tobacco (finding) [facility] Start: 07-10-2024 End: 07-15-2024 Sex Assigned At [place] [employer] Other Start: 07-03-2023 Tobacco use and exposure Smokeless tobacco non-user [facility] Start: 07-10-2024 End: 07-15-2024 Alcoholic beverage intake Ex-drinker (finding) [facility] Start: 07-10-2024 End: 07-15-2024 History of Social function [facility] Start: 1955 Sex assigned at Not on file [facility] Start: 10-28-2024 Sex Female (finding) [facility] Goals Date Patient Goal Desired Activity /State Clinical Notes 11-15-2022 to 08-13-2024 Note Date & Type Note Facility 08-13-2024 Evaluation note Diagnosis Onset Date Resolution Bilateral lower extremity edema acute August 13 11:46am Bleeding from varicose veins of left lower extremity acute August 13 11:46am Hemosiderin pigmentation of lower extremity due to varicose veins acute August 13, 2024 11:46am Symptomatic varicose veins of both lower extremities acute August 13 11:46am Telangiectasia acute August 132023 11:46am Venous insufficiency acute 2023 11:46am Chronic venous insufficiency of lower extremity acute October 28 2:27pm GERD (gastroesophageal reflux disease) acute October 28 2:27pm Scleroderma of esophagus acute October 28, 2024 2:27pm Lumbar spondylosis noneactive Julissa y 2024 2:27pm [facility] Work Phone: 1(665) 285-713110-01-2024 History of Present illness Narrative* Sujey Camargo MD - 07/15/2024 2:40 PM EDT Images from the original note were not [...] 07/10/2024 Raynaud's disease 06/07/2010 Scleroderma of esophagus (CMS/HCC) 07/10/2024 Systemic sclerosis (CMS/HCC) 06/07/2010 Tarsal tunnel [...] 3 MG tablet dispersible Take by mouth. [place] Extract 250 MG capsule Take by mouth. [...] ulceration or mass. Normal bilateral true vocal foldmotion is present. Bilateral piriform sinuses and base of tongue appear without lesion. Tu TVC bowing Assessment/Plan Diagnoses and all orders for this visit: Presbylarynges Hoarse LPRD (laryngopharyngeal reflux disease) Pt has some age-related TVC changes exacerbated by her GERD./ Recommend elevating the HOB all the time. Continue tx O/W per Dr Sarah documented in this encounterSaint [facility] [id number] Evaluation note* Encounter Date Diagnosis Assessment Notes Treatment Notes Treatment Clinical Notes Oct, GERD (gastroesophageal reflux disease) (ICD-10 - K21.9) The patient likes Omeprazole than Famotidine. She is currently breaking open the 40 mg capsule. She does not use all of the granules. She would like to cut this to 20 mg daily. Start Omeprazole 20 mg dialy. Return visit here in six months [employer] Other 12-26-2023 Evaluation note* Encounter Date Diagnosis [...] Echo w/ normal LVEF Sep, Atherosclerosis of [place] arteries of extremities with intermittent claudication, bilateral [...] f/u Rheumatology CT chest, Echo, PFT normal [employer] Other 08-24-2023 Evaluation note* Encounter Date Diagnosis [...] the leg home care material was printed [employer] Other 04-17-2023 Evaluation note* Encounter Date Diagnosis Assessment Notes Treatment Notes Treatment Clinical Notes Jan, Bronchitis (ICD-10 - J40) Acute bronchitis material was printed Drink plenty fluids, get plenty of rest. Take your doxycycline at home, 1 tablet twice a day for 10 days. Take the prednisone as prescribed until gone. Take Robitussin, welg-qow-axdddbq cough medicine, as needed for cough. 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 (ICD-10 - K22.70) [employer] Other [facility] History general Narrative - Reported* Type Description Date Medical History scleroderma Medical History back pain Medical History GERD Medical History esophageal stricture Surgical History carpal tunnel release Surgical History EGD 11/2022 Hospitalization History blood clot in right leg 2005 [employer] Other 02-01-2023 History general Narrative - Reported* Type Description Date Medical History scleroderma Medical History back pain Medical History GERD Medical History esophageal stricture Surgical History carpal tunnel release Surgical History EGD 11/2022 Surgical History Colonoscopy 2020 Hospitalization History blood clot in right leg 2005 [employer] Other Evaluation noteNo assessment information available [facility]tr[facility] note* Diagnosis Onset Date Resolution Status Dysphagia acute Ulcerative esophagitis [facility] Work Phone: Evaluation note* Diagnosis Onset Date Resolution Status Ulcerative esophagitis [facility] Work Phone: Evaluation noteNo InformationNort [employer] Other Evaluation note* Diagnosis Onset Date Resolution Status Bleeding from varicose veins of left lower extremity [facility] Work Phone: Evaluation note* Diagnosis Onset Date Resolution Status Dysphagia acute GERD (gastroesophageal reflux disease) [facility] Work Phone: Evaluation note* Diagnosis Onset Date Resolution Status Dysphagia acute GERD (gastroesophageal reflux disease) acute Dysphagia acute GERD (gastroesophageal reflux disease) [facility] Work Phone: Evaluation note* Diagnosis Onset Date Resolution Status Dysphagia acute Dysphagia acute Chronic venous insufficiency of lower extremity acute GERD (gastroesophageal reflux disease) acute Medicare annual wellness visit, subsequent acute Scleroderma of esophagus acu te Screening mammogram for breast cancer acute [facility] Work Phone: Evaluation note* Diagnosis Presbylarynges- Primary [...] breast cancer acute Lumbar spondylosis noneactiv e [facility] Work Phone: Hospital Discharge instructions Additional Instructions [...] if you have any problems. -Office number [phone] Work Phone: Summary Purpose Family History Relationship [...] Date/ Time Advance Directives No November 2:32pm Advance Directive Response Recorded Date/ Time Advance Directives No November 1:32pm Chief Complaint and Reason for Visit Chief [...] 6 week follow up; [facility] Reason for Visit Bleeding from varico se [...] for breast cancer Lumbar spondylosis Chief Complaint Admit Date 4 WK S/P VENASEAL RIGHT LEG July 11:46am PT Discharge/Reoccurring Back Pain Janua ry 2024 2:27pm Reason for Visit Admit Date Bilateral lower extremity edema August 13, 2024 11:46am Bleeding from varicose veins of left low er extremity August 13, 2024 11:46am Hemosiderin pigmentation of lower extremity due to varicose veins August 13, 2024 11:46am Symptomatic varicose veins of both lower extremities August 13, 2024 11:46am Telangiectasia August 13, 2024 1 1:46am Venous insufficiency August 13, 2024 11:46am Chronic venous insufficiency of lower ex tremity October 28, 2024 2:27pm GERD (gastroesophageal reflux disease) J anuary 2024 2:27pm Scleroderma of esophagus October 28, 2 025 2:27pm Lumbar spondylosis October 28, 2024 2 :27pm Additional Source Comments INFORMATION SOURCE (unrecogn ized section and content) DATE CREATED AUTHOR 09/14/2018 [facility] DATE CREATED AUTHOR AUTHOR'S ORGANIZ ATION 09/10/2019 [facility] DATE CREATED AUTHOR AUTHOR'S ORGANIZ ATION 02/16/2023 [facility] DATE CREATED AUTHOR AUTHOR'S ORGANIZ ATION 06/08/2024 [facility] DATE CREATED AUTHOR AUTHOR'S ORGANIZ ATION 07/17/2024 [facility] EPIC Goals (unrecognized [...] July 02, 2024 End: July 02, 2024 Registered Occupational Therapist Relationship Specialty Start Date End Date Steve Armendariz MD [address] [place] [address] PCP - General Internal Medicine 07/03/23 Registered Occupational Therapist Relationship Specialty Start Date End Date Steve Armendariz MD [address] [place] [address] PCP - General Internal Medicine 07/03/23 Team [...] August 13, 2024 End: August 13, 2024 Team Status: Active Member Role Status Dates Steve Armendariz DO Primary Care Provider Active Start: September 16, 2024 Angelic Vick MD Attending Provider Active St art: September 16, 2024 Team Status: Inactive Member Role Status Dates Steve Armendariz DO Primary Care Provide r, Attending Provider Active Start: October 28, 2024 End: October 28, 2024 REASON FOR VISIT (unrecogniz ed section [...] BE BASED ON THE PRIMARY CLINICAL RECORDS. [employer] [facility]. provides no warranty or guarantee of the accuracy or completeness of information in this document.
--- NOTE | 2024-11-18 17:22 | PC.NURSE ---
pt has small lump to L lower ankle -- states her varicose vein is acting up and is tender to touch. pt was able to walk back. does admit to having a h/o clots
== END 2024-11-18 17:45 | disposition left against medical advice (07) ==
PROVIDERS: Emergency Provider Emergency Medicine; PCP Internal Medicine
DX: M79.662 Pain in left lower leg (principal); Z53.29 Procedure and treatment not carried out because of patient's decision for other reasons; Z86.718 Personal history of other venous thrombosis and embolism
CPT/HCPCS: 93971; 99284

== ENCOUNTER 2024-12-09 15:17 | Outpatient (OUT) | payer OTHER, SELFPAY ==
[2024-12-09 15:41] LABS: Basophils Percent Auto 0.5 % (0.2-2.0); Eosinophils Absolute Auto 0.1 10^3/uL (0.0-0.7); Eosinophils Percent Auto 1.9 % (0.9-7.0); Hematocrit 39.5 % (36.0-48.0); Hemoglobin 12.8 g/dL (12.0-16.0); Immature Granulocytes Abs Auto 0.02 10^3/uL (0.00-0.03); Immature Granulocytes Pct Auto 0.3 % (0.0-0.5); Lymphocytes Absolute Auto 2.3 10^3/uL (1.2-3.8); Lymphocytes Percent Auto 30.7 % (20.5-60.0); Mean Corpuscular HGB Conc 32.4 g/dL (29.9-35.2); Mean Corpuscular Hemoglobin 29.8 pg (26.7-34.0); Mean Corpuscular Volume 91.9 fL (81.0-99.0); Mean Platelet Volume 8.9 fL (9.5-13.5); Monocytes Absolute Auto 0.6 10^3/uL (0.3-0.8); Monocytes Percent Auto 8.1 % (1.7-12.0); Neutrophils Absolute Auto 4.4 10^3/uL (1.4-6.5); Neutrophils Percent Auto 58.5 % (43.0-75.0); Platelet Count 138 10^3/uL (150-450); Red Cell Distribution Width 14.4 % (11.0-15.0); White Blood Count 7.5 10^3/uL (4.0-11.0)
[2024-12-09 15:41] LABS: Bilirubin Urine NEGATIVE (NEGATIVE); Blood Urine SMALL (NEGATIVE); Clarity Urine CLEAR (CLEAR); Color Urine LT. YELLOW (YELLOW); Glucose Urine UA NEGATIVE (NEGATIVE); Ketones Urine TRACE mg/dL (NEGATIVE); Leukocyte Esterase Urine TRACE (NEGATIVE); Nitrite Urine NEGATIVE (NEGATIVE); Protein Urine NEGATIVE (NEG/TRACE); Urobilinogen Urine 0.2 EU/dL (0.2-1.0); pH Urine 5.5 (5.0-9.0)
[2024-12-09 15:48] LABS: Erythrocyte Sedimentation Rate 15 mm/hr (<=30)
[2024-12-09 15:50] LABS: Bacteria Urine TRACE #/HPF (NONE SEEN); Cast Seen? NONE SEEN #/LPF (NONE SEEN); Crystals Seen? None Seen #/HPF (None Seen); Mucus Urine NONE SEEN (NONE SEEN); Squamous Epithelial Cell Urine RARE #/LPF (NONE/RARE); WBC Urine 0-2 #/HPF (NONE SEEN)
[2024-12-09 16:20] LABS: Alanine Aminotransferase 29 U/L (14-59); Albumin Level 3.2 g/dL (3.4-5.0); Alkaline Phosphatase 72 U/L (46-116); Anion Gap 9.5; Aspartate Amino Transferase 21 U/L (15-37); BUN Creatinine Ratio 21.1; Bilirubin Total 0.2 mg/dL (0.2-1.0); Calcium 8.7 mg/dL (8.5-10.1); Carbon Dioxide 28.7 mmol/L (21.0-32.0); Chloride 109 mmol/L (98-107); Estimated GFR (African America >60 (>=60 mL/min/1.73m^2); Estimated GFR (Non-African Ame 58 (>=60 mL/min/1.73m^2); Globulin 3.2 g/dL; Glucose 117 mg/dL (74-106); Potassium 4.2 mmol/L (3.5-5.1); Sodium 143 mmol/L (136-145); Total Protein 6.4 g/dL (6.4-8.2)
[2024-12-11 07:09] LABS: Complement C3, Serum 121 mg/dL (82-167); Complement C4, Serum 19 mg/dL (12-38)
[2024-12-11 15:08] LABS: Complement, Total (CH50) 58 U/mL (>41)
== END 2024-12-09 15:18 | disposition home or self-care (01) ==
LOC: LAB 15:17
PROVIDERS: PCP Internal Medicine; Visit Provider Internal Medicine Rheumatology
DX: M34.0 Progressive systemic sclerosis (principal); M15.0 Primary generalized (osteo)arthritis; Z79.899 Other long term (current) drug therapy
CPT/HCPCS: 36415; 80053; 81001; 85025; 85652; 86160; 86162

== ENCOUNTER 2025-06-22 15:30 | Outpatient (OUT) | payer OTHER, SELFPAY ==
--- OUTSIDE RECORDS SUMMARY | 2025-06-22 15:42 | XMS_ITS | Clinical Summary ---
Author Organization [facility] Address [address] [place] [address] Care Team Providers Care Outboard Motor Inspector Name Role Phone Unavailable Primary Care Provider Unavailabl e Social History Tobacco Use Types Packs/Day Years Used Date Smoking Tobacco: Never Assessed [place] Safety & Environment Answer Date Rec orded Fear of Current or Ex-Partner Not on file Emotionally Abused Not on file 12/06/2023 Physically Abused Not on file 12/06/2023 Sexually Abused Not on file 12/06/2023 Physically or Sexually Abused Not on file Comments Unknown Sex and Gender Information Value Date Recorded Sex Assigned at Not on file Legal Sex Female 10:23 PM EDT Gender Identity Not on file Sexual Orientation Not on file Plan of Treatment Health Maintenance Due Date Last Done Comments CT Colonography 1955 Colonoscopy 1955 Colorectal Cancer Screening 1955 FIT-DNA 1955 FIT 1955 FOBT 1955 Medicare Annual Wellness (AWV) 1955 Sigmoidoscopy 1955 Depression Screening 1966 Adult Tetanus 02/03/1976 Mammogram 1994 Pneumococcal Vaccine: 50+ Ye ars (1 of 1 - PCV) 02/03/2004 Zoster Vaccines (1 of 2) 02/03/2004 Fall Risk Screening 2019 COVID-19 Vaccine ( - 2023-2 5 season) 2025 Influenza Vaccine (#1) 2025 HIB Vaccines Aged Out No longer eligi ble based on patient's age to complete this topic HPV Vaccines Aged Out No longer eligi ble based on patient's age to complete this topic IPV Vaccines Aged Out No longer eligi ble based on patient's age to complete this topic Meningococcal B Vaccine Aged Out No l onger eligible based on patient's age to complete this topic Meningococcal Vaccine Aged Out No kelli shani eligible based on patient's age to complete this topic Rotavirus Vaccines Aged Out No longer eligible based on patient's age to complete this topic Insurance [employer]
--- OUTSIDE RECORDS SUMMARY | 2025-06-22 15:42 | XMS_ITS | Clinical Summary ---
Author Organization [facility] Address [address] [place] [address] Care Team Providers Care Environmental Research Scientist Name Role Phone Steve Armendariz DO Primary Care Provider [phone] Allergies Active Allergy Reactions Criticality Noted Date Comments Gentamicin Unknown 07/03/2023 Meloxicam Unknown 07/03/2023 Penicillin G Unknown 07/03/2023 Sulfamethoxazole Unknown 07/03/2023 Medications omeprazole (PriLOSEC) [address] capsule Take 10 mg by mouth in the morning. Take before meals. Do not crush or chew. . Active [place] Extract 250 MG capsule Take by mouth. Activ e GRAPE SEED EXTRACT PO Take by mouth. Acti ve Melatonin 3 MG tablet dispersible Take by mouth. Act jorge Ascorbic Acid (vitamin C) 250 MG tablet Take 500 mg by mouth in the morning. Active cholecalciferol (Vitamin D-3) 25 MCG (1000 UT) capsule Take 1,000 Units by mouth in the morning. Active BETA GLUCAN PO Take by mouth. Active Garlic 2 MG capsule Take by mouth. Activ e Probiotic Product (PROBIOTIC BLEND PO) Take by mouth. Activ e cycloSPORINE (Restasis MultiDose) 0.05 % ophthalmic emulsion Administer 1 drop into both eyes in the morning and 1 drop before bedtime. 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 Raynaud's disease 06/07/2010 Systemic sclerosis 06/07/2010 Resolved Problems Problem Noted Date Diagnosed Date Resolved Date Pain in limb 01/23/2012 07/10/2024 Family History Medical History Relation Name Comments Heart disease Father Hypertension Father Heart disease Mother Hypertension Mother Relation Name Status Comments Father Mother Social History Tobacco Use Types Packs/Day Years Used Date Smoking Tobacco: Never Smokeless Tobacco: Never Tobacco Cessation:Counseling Given: Not Answered Alcohol Use Standard Drinks/Week Comments Not Currently 0 (1 standard drink = 0.6 oz pur e alcohol) Comments Unknown Sex and Gender Information Value Date Recorded Sex Assigned at Not on file Legal Sex Female 11:09 PM EDT Gender Identity Not on file Sexual Orientation Not on file Last Filed Vital Signs Vital Sign Reading Time Taken Comments Blood Pressure 142/74 07/15/2024 2:44 PM EDT Pulse - - Temperature - - Respiratory Rate - - Oxygen Saturation - - Inhaled Oxygen Concentration - - Weight 80.3 kg (177 lb) 07/15/2024 2:44 PM EDT Height 152.4 cm (5') 07/15/2024 2:44 PM EDT Body Mass Index 34.57 07/15/2024 2:44 PM EDT Plan of Treatment Not on file Insurance [employer] Care Teams Environmental Research Scientist Relationship Specialty Start Date End Date Steve Armendariz DO PCP - General Internal Medicine 07/03/23
--- OUTSIDE RECORDS SUMMARY | 2025-06-22 15:42 | XMS_ITS | Encounter Summary ---
Author Organization [facility] Address [address] [place] [address] Care Team Providers Care Slaughterer Religious Ritual Name Role Phone Steve Armendariz DO Primary Care Provider [phone] Encounter Details Date Type Department Care Team (Late st Contact Info) Description 01/09/2024 Abstract [facility] [address] [place] [address] Marga Quiros, DPM [address] [place], [place] [id number] Social History Tobacco Use Types Packs/Day Years Used Date Smoking Tobacco: Never Smokeless Tobacco: Never Alcohol Use Standard Drinks/Week Comments Not Currently 0 (1 standard drink = 0.6 oz pur e alcohol) Comments Unknown Sex and Gender Information Value Date Recorded Sex Assigned at Not on file Legal Sex Female 11:09 PM EDT Gender Identity Not on file Sexual Orientation Not on file documented as of this encounter Plan of Treatment Not on file documented as of this encounter Visit Diagnoses Not on filedocumented in this encounter Care Teams Slaughterer Religious Ritual Relationship Specialty Start Date End Date Steve Armendariz DO PCP - General Internal Medicine 07/03/23 documented as of this encounter
[2025-06-22 16:36] LABS: Thyroid Stimulating Hormone 3.150 uIU/mL (0.358-3.740)
== END 2025-06-22 15:31 | disposition home or self-care (01) ==
PROVIDERS: PCP Internal Medicine; Visit Provider Internal Medicine
DX: E55.9 Vitamin D deficiency, unspecified (principal); R73.9 Hyperglycemia, unspecified; R53.83 Other fatigue; M47.816 Spondylosis without myelopathy or radiculopathy, lumbar region; M54.9 Dorsalgia, unspecified
CPT/HCPCS: 36415; 82306; 83036; 84443

== ENCOUNTER 2025-06-22 15:44 | Outpatient (OUT) | payer OTHER, SELFPAY ==
[2025-06-22 16:14] LABS: Glucose Urine UA NEGATIVE (NEGATIVE)
[2025-06-22 16:22] LABS: Hematocrit 40.5 % (36.0-48.0); Hemoglobin 13.3 g/dL (12.0-16.0); Immature Granulocytes Abs Auto 0.01 10^3/uL (0.00-0.03); Immature Granulocytes Pct Auto 0.1 % (0.0-0.5); Lymphocytes Absolute Auto 2.5 10^3/uL (1.2-3.8); Mean Corpuscular HGB Conc 32.8 g/dL (29.9-35.2); Mean Corpuscular Hemoglobin 30.0 pg (26.7-34.0); Mean Corpuscular Volume 91.4 fL (81.0-99.0); Platelet Count 201 10^3/uL (150-450); Red Blood Count 4.43 10^6/uL (4.20-5.40); White Blood Count 7.2 10^3/uL (4.0-11.0)
--- NOTE | 2025-06-22 16:22 | XR_ITS ---
The [address] [address] Patient Name: BASHIR COATS MRN: [id number] date: 1955 Sex: F Assigned Patient Location: LAB Current Patient Location: Accession/Order Number: [id number] Exam Date: 06/22/2025 16:11 Report Date: 06/23/2025 10:01 At the request of: ANGELIC VICK Procedure: XR lumbar spine 6V w bending LUMBAR SPINE WITH FLEXION-EXTENSION VIEWS - 6 views: CLINICAL HISTORY: Spondylosis of lumbar spine, M47.816, chronic back pain, M54.9 COMPARISON: 07/11/2024 AP, lateral neutral, flexion and extension and both oblique views of the lumbosacral junction were obtained. The bony structures are osteopenic. Levoscoliotic curvature is again seen. There is exaggeration of normal lumbar lordosis. There is no acute compression fracture. There is still minimal retrolisthesis of L1 on L2, approximately 8 mm of retrolisthesis of L2 on L3 and 4 mm of retrolisthesis of L3 on L4. Alignment does not change significantly with flexion or extension. There is multilevel disc space narrowing. There is some endplate sclerosis. Multilevel endplate spurring and lower lumbar facet hypertrophy are again seen. No pars defect is identified. The sacroiliac joints are maintained and show mild sclerosis. There are no paraspinal soft tissue abnormalities. XR/XR lumbar spine 6V w bending IMPRESSION: OSTEOPENIA, SCOLIOSIS AND DEGENERATIVE CHANGES COMMENT SIMILAR TO THE PRIOR. Impression dictated by: Sasha Guajardo M.D. 06/23/2025 10:01 AM Dictation Location: [employer] Electronically authenticated by: [id number] Y Date: 06/23/2025 10:01
[2025-06-22 16:26] LABS: Alanine Aminotransferase 26 U/L (14-59); Albumin Globulin Ratio 1.1; Albumin Level 3.9 g/dL (3.4-5.0); Alkaline Phosphatase 76 U/L (46-116); Anion Gap 15.0; Aspartate Amino Transferase 20 U/L (15-37); Blood Urea Nitrogen 25.0 mg/dL (7.0-18.0); Calcium 9.4 mg/dL (8.5-10.1); Carbon Dioxide 26.1 mmol/L (21.0-32.0); Chloride 106 mmol/L (98-107); Estimated GFR (African America >60 (>=60 mL/min/1.73m^2); Estimated GFR (Non-African Ame 53 (>=60 mL/min/1.73m^2); Globulin 3.5 g/dL; Glucose 96 mg/dL (74-106); Potassium 4.1 mmol/L (3.5-5.1); Sodium 143 mmol/L (136-145); Total Protein 7.4 g/dL (6.4-8.2)
[2025-06-22 17:11] LABS: Cast Seen? NONE SEEN #/LPF (NONE SEEN); Crystals Seen? None Seen #/HPF (None Seen)
== END 2025-06-22 15:45 | disposition home or self-care (01) ==
PROVIDERS: PCP Internal Medicine; Visit Provider Internal Medicine Rheumatology
DX: M34.0 Progressive systemic sclerosis (principal); M15.0 Primary generalized (osteo)arthritis; Z79.899 Other long term (current) drug therapy; E55.9 Vitamin D deficiency, unspecified; R73.9 Hyperglycemia, unspecified; R53.83 Other fatigue; M47.816 Spondylosis without myelopathy or radiculopathy, lumbar region; M54.9 Dorsalgia, unspecified
CPT/HCPCS: 36415; 72114; 80053; 81001; 82306; 83036; 84443; 85025; 85652; 86160; 86162

== ENCOUNTER 2025-07-14 14:22 | Outpatient (OUT) | payer OTHER, SELFPAY ==
--- OUTSIDE RECORDS SUMMARY | 2025-07-14 14:24 | XMS_ITS | Encounter Summary ---
Author Organization [facility] Address [address] [place] [address] Care Team Providers Care Material Dispatcher Name Role Phone Steve Armendariz DO Primary Care Provider [phone] Encounter Details Date Type Department Care Team (Late Contact Info) Description 01/09/2024 Abstract [facility] [address] [place] [phone] Marga Quiros DPM [address] [place], [place] [phone] Social History Tobacco Use Types Packs/Day Years [...] as of this encounter Plan of Treatment Upcoming Encounters Date Type Department Care Team (Late st Contact Info) Description 07/16/2025 2:15 PM EDT Office Visit [facility] [address] [place] [phone] Marga Quiros DPM [address] [place], [place] [phone] documented as of this encounter Visit Diagnoses Not on filedocumented in this encounter Care Teams Material Dispatcher Relationship Specialty Start Date End Date Steve Armendariz DO [address] [place] [address] PCP - General Internal Medicine 07/03/23 documented as of this encounter
--- OUTSIDE RECORDS SUMMARY | 2025-07-14 14:24 | XMS_ITS | Encounter Summary ---
Author Organization [facility] Address [address] [place] [address] Care Team Providers Care Junior Paralegal Name Role Phone Steve Armendariz DO Primary Care Provider [phone] Encounter Details Date Type Department Care Team (Late Contact Info) Description 07/10/2024 Abstract [facility] [address] [facility] [address] [place] [phone] Mary Irving RN [address] [facility] [address] [place], [place] [phone] Social History Tobacco Use Types Packs/Day Years [...] 07/16/2025 2:15 PM EDT Office Visit [facility] [address] [facility] [place] [phone] Marga Quiros, DPM [address] [place], [place] [phone] documented as of this encounter Visit Diagnoses Not on filedocumented in this encounter Care Teams Junior Paralegal Relationship Specialty Start Date End Date Steve Armendariz DO [address] [place] [address] PCP - General Internal Medicine 07/03/23 documented as of this encounter
--- OUTSIDE RECORDS SUMMARY | 2025-07-14 14:25 | XMS_ITS | Clinical Summary ---
Author Organization [facility] Address [address] [place] [address] Care Team Providers Care Finishing Room Supervisor Name Role Phone Unavailable Primary Care Provider [...]
--- OUTSIDE RECORDS SUMMARY | 2025-07-14 14:25 | XMS_ITS | Clinical Summary ---
Author Organization [facility] Address [address] [place] [address] Care Team Providers Care Can Slider Name Role Phone Steve Armendariz DO Primary Care Provider [phone] Allergies Active Allergy Reactions Criticality Noted Date Comments Gentamicin Unknown 07/03/2023 Meloxicam Unknown 07/03/2023 Penicillin G Unknown 07/03/2023 Sulfamethoxazole Unknown 07/03/2023 Medications omeprazole (PriLOSEC) [address] capsule Take 10 mg by mouth in the morning. Take before meals. Do not crush or chew. . Active [place] Extract 250 MG capsule Take by mouth. [...] 07/15/2024 2:44 PM EDT Plan of Treatment Upcoming Encounters Date Type Department Care Team (Late st Contact Info) Description 07/16/2025 2:15 PM EDT Office Visit [facility] [address] [place] [phone] Marga Quiros, DPM [address] [place], [place] [phone] Insurance [employer] Care Teams Can Slider Relationship Specialty Start Date End Date Steve Armendariz DO [address] [place] [address] PCP - General Internal Medicine 07/03/23
--- NOTE | 2025-07-14 14:27 | MM_ITS ---
Patient Name: BASHIR COATS MR#: [id number] : 1955 Exam Date: 07/14/2025 Ordering Doctor: DR AMITA RICKETTS D.O. RADIOLOGY REPORT PROCEDURE: MM TOMOSYNTHESIS SCREENING BI COMPARISON: MM TOMOSYNTHESIS SCREENING BI, 07/11/2024. MM TOMOSYNTHESIS SCREENING BI, 07/04/2023. MG MAMM SCREEN 3D TRENT CAD, 02/07/2022. MG MAMM SCREEN TRENT W CAD, 07/28/2011. INDICATIONS: Screening Calculator Name NCI Breast Cancer Risk Assessment Tool 5 Year Breast Cancer Risk 1.10% Lifetime Breast Cancer Risk 3.20% Personal Breast Cancer No Personal Ovarian Cancer No Treatments None Family Cancers Sister with lymphoma cancer at age 40. LOCATION: [facility] BREAST COMPOSITION: The breasts are heterogeneously dense, which may obscure small masses. FINDINGS: RIGHT BREAST: No significant suspicious finding. Benign-appearing lymph nodes are noted along the chest wall. Benign-appearing calcifications are present. There is a similar focal asymmetry. LEFT BREAST: No significant suspicious finding. Benign-appearing lymph nodes are noted along the chest wall. Benign-appearing calcifications are present. There is a similar focal asymmetry. DIAGNOSTIC CATEGORY 2--BENIGN FINDING. NO CHANGE FROM COMPARISON. RECOMMENDATIONS: ROUTINE MAMMOGRAM AND CLINICAL EVALUATION IN 12 MONTHS. Dictated by: Delmar Osborne MD on 07/14/2025 at 15:46 Approved by: Delmar Osborne MD on 07/14/2025 at 15:51
== END 2025-07-14 14:23 | disposition home or self-care (01) ==
LOC: MAMMO 14:22
PROVIDERS: PCP Internal Medicine; Visit Provider Internal Medicine
DX: Z12.31 Encounter for screening mammogram for malignant neoplasm of breast (principal); M85.88 Other specified disorders of bone density and structure, other site; M85.80 Other specified disorders of bone density and structure, unspecified site; Z80.7 Family history of other malignant neoplasms of lymphoid, hematopoietic and related tissues
CPT/HCPCS: 77063; 77067; 77080

== ENCOUNTER 2025-09-25 10:42 | Outpatient (OUT) | payer OTHER, SELFPAY ==
[2025-09-25 10:57] LABS: Hemoglobin 13.5 g/dL (12.0-16.0)
--- NOTE | 2025-09-25 11:30 | CA_ITS ---
Patient Name: BASHIR COATS MR#: [id number] : 1955 Exam Date: 09/25/2025 Ordering Doctor: DR ANGELIC VICK M.D. ECHOCARDIOGRAM REPORT PROCEDURE: CA ECHO DOPPLER COMPLETE INDICATIONS: Pulmonary hypertension, interstitial lung disease, connective tissue disease COMPARISON: None. DESCRIPTION: COMPLETE ECHOCARDIOGRAM Real-time transthoracic echocardiography with 2D, M-mode, spectral and color flow Doppler performed. QUALITY: Technical quality was good. LEFT VENTRICLE: Normal chamber size. Mild concentric left ventricular hypertrophy. Estimated left ventricular ejection fraction is 65-70%. LV EF: Normal left ventricular ejection fraction, (>55%). DIASTOLIC: Normal diastolic function. ATRIAL SEPTUM: Visually appears intact. LEFT ATRIUM: Normal chamber size. RIGHT ATRIUM: Normal chamber size. RIGHT VENTRICLE: Normal chamber size. Normal right ventricular systolic function. TRICUSPID VALVE: Normal mobility and thickness. No stenosis with trivial regurgitation. No evidence of pulmonary hypertension. RVSP 28 mmHg MITRAL VALVE: Normal mobility and thickness. No evidence of mitral valve stenosis. Mild mitral annular calcification. Mild mitral regurgitation. AORTIC VALVE: Normal trileaflet appearance. No visible sclerosis. Normal leaflet mobility. No evidence of aortic valve stenosis. No aortic regurgitation. AORTIC ROOT: Normal diameter and appearance, measuring 3.2 cm. Ascending aorta is normal in size during 2.9 cm. PULMONIC VALVE: Normal thickness and mobility. No stenosis. Trivial regurgitation. PERICARDIUM: No evidence of pericardial effusion. IVC: Collapses with inspirations. IVC is normal in size. PLEURA: CONCLUSION: 1. Mild concentric left ventricular hypertrophy with normal systolic function. Estimated LVEF is 65 to 70%. 2. Normal right ventricular size and systolic function. 3. Mild mitral regurgitation. 4. Normal diastolic function. 5. Normal right-sided pressures. Adult Echocardiography Procedure Report Left Ventricle LVEDD (3.7 - 5.6 cm): 3.34 cm LVESD (2.2 - 4.0 cm): 2.73 cm LVIVS thickness (0.6 - 1.2 cm): 1.33 cm LVPW thickness (0.5 - 1.0 cm): 1.32 cm e': 0.08 m/s E - e': 8.54 LVOT Max Gradient: 4.02 mm[Hg] LVOT Area (cm2): 1.00 m/s Peak Velocity (LVOT): 1.00 m/s Mean Velocity (LVOT): 0.57 m/s LVOT Diameter 1.87 cm Left Ventricular Ejection Fraction: 65-70 % Left Atrium LA Volume Index (2D A2C): 29.21 ml/m2 Left Atrium Systolic Dimension: 3.40 cm Mitral Valve MV E to A Ratio: 0.62 Mitral Valve A-Wave Peak Velocity: 1.13 m/s Mitral Valve E-Wave Peak Velocity: 0.70 m/s Right Ventricle Aorta AO Root Diam: 3.20 cm Ascending Ao Diam: 2.91 cm Aortic Valve AoV Area (Peak Ernesto): 2.59 cm2, 2.59 cm2 AoV Area (VTI): 2.74 cm2, 2.74 cm2 Peak Velocity(Antegrade Flow): 1.07 m/s Peak Gradient(Antegrade Flow): 4.56 mm[Hg] Mean Velocity(Antegrade Flow): 0.77 m/s Mean Gradient(Antegrade Flow): 2.59 mm[Hg] Velocity Time Integral: 24.47 cm Tricuspid Valve Peak Velocity (Regurgitant Flow): 2.53 m/s, 2.50 m/s Pulmonic Valve Mean Gradient: 2.51 mm[Hg] Mean Velocity: 0.74 m/s Peak Velocity: 1.11 m/s Peak Gradient: 4.97 mm[Hg] Right Atrium Right Atrium Systolic Pressure: 38.18 ml, 38.18 ml Dictated by: Manoj Saavedra M.D. on 09/25/2025 at 17:05 Approved by: Manoj Saavedra M.D. on 09/25/2025 at 17:08
== END 2025-09-25 10:43 | disposition home or self-care (01) ==
LOC: CARD 10:42
PROVIDERS: PCP Internal Medicine; Visit Provider Internal Medicine Rheumatology
DX: J84.10 Pulmonary fibrosis, unspecified (principal); I27.0 Primary pulmonary hypertension; R06.02 Shortness of breath; R06.00 Dyspnea, unspecified; M35.9 Systemic involvement of connective tissue, unspecified
CPT/HCPCS: 36415; 85018; 93306; 94010; 94726; 94729